=== PATIENT | male | born 1995 | race American Indian/Alaskan Native ===

== ENCOUNTER 2016-11-22 10:30 | Inpatient (IN) | payer MEDICAID ==
[2016-11-22 10:53] VITALS: BMI 17.8
[2016-11-22] MEDS ORDERED: Sodium Chloride 0.9% 1,000 ML IV STA (12:24)
[2016-11-22] MEDS ORDERED: Morphine 2 mg/ml ISec IVP STA (12:31)
[2016-11-22] MEDS ORDERED: DiphenhydrAMINE 50 mg/ml Inj IVP STA (12:31)
--- NOTE | 2016-11-22 12:33 | ED PDOC ---
Arrival/HPI - General Historian: Patient - History of Present Illness Time/Duration: Other (2 weeks) Quality: Aching Context: Home <Devendra Pepe P - Last Filed: 11/24/16 15:47> <Sharmin Anders - Last Filed: 11/24/16 16:16> - General Chief Complaint: Abnormal Skin Integrity Time Seen by Provider: 11/22/16 11:31 - History of Present Illness Narrative History of Present Illness (Text): 11/22/16 12:15 This 21 yo male with pmh crohn's disease, anemia, presents to this ED c/o abdominal wound pain x 2 days. Patient stated he seen drainage from incisional wound x 2 weeks. Patient stated he had abdominal surgery in March 2016. Patient denies sob, cp, streaking erythema, fever, n/v/d, rectal bleeding, melena, hematochezia, urinary symptoms, dizziness, or abnormal gait. Patient noted he has been seen @ [facility] [place] for previous visit. Patient had I&D done 3 weeks ago for right lower back abscess, and he was taking 10 days ABX treatment. (Devendra Pepe) Past Medical History - Provider Review Nursing Documentation Reviewed: Yes - Cardiac Hx Cardiac Disorders: No - Pulmonary Hx Respiratory Disorders: No - Neurological Hx Neurological Disorder: No - HEENT Hx HEENT Disorder: No - Renal Hx Renal Disorder: No - Endocrine/Metabolic Hx Endocrine Disorders: No - Hematological/Oncological Hx Blood Disorders: No - Integumentary Hx Dermatological Disorder: No - Musculoskeletal/Rheumatological Hx Musculoskeletal Disorders: No - Gastrointestinal Hx Crohn's Disease: Yes - Genitourinary/Gynecological Hx Genitourinary Disorders: No - Psychiatric Hx Psychophysiologic Disorder: No Hx Substance Use: No - Anesthesia Hx Anesthesia: No <Devendra Pepe P - Last Filed: 11/24/16 15:47> Family/Social History - Physician Review Nursing Documentation Reviewed: Yes Family/Social History: No Known Family HX Smoking Status: Never Smoked Hx Alcohol Use: No Hx Substance Use: No <Devendra Pepe P - Last Filed: 11/24/16 15:47> Allergies/Home Meds <Devendra Pepe P - Last Filed: 11/24/16 15:47> <Sharmin Anders - Last Filed: 11/24/16 16:16> Allergies/Adverse Reactions: Allergies FISH Allergy (Verified 11/13/16 13:50) shellfish derived Adverse Reaction (Verified 11/22/16 10:53) ANGIOEDEMA Review of Systems - Review of Systems Constitutional: Normal. absent: Fatigue, Weight Change, Fevers, Night Sweats Eyes: Normal ENT: Normal Respiratory: Normal. absent: SOB, Cough Cardiovascular: Normal Gastrointestinal: Abdominal Pain, Other (no rectal bleeding). absent: Stool Changes, Constipation, Diarrhea, Nausea, Vomiting, Appetite Changes, Hematochezia, Hematemesis, Food Intolerance Genitourinary Male: Normal Musculoskeletal: Normal Skin: Abscess Neurological: Normal Endocrine: Normal Hemo/Lymphatic: Normal Psychiatric: Normal <Pepe,Nahim P - Last Filed: 11/24/16 15:47> Physical Exam Temperature: Afebrile Blood Pressure: Normal Pulse: Regular Respiratory Rate: Normal Appearance: Positive for: Well-Appearing, Non-Toxic, Comfortable Pain Distress: None Mental Status: Positive for: Alert and Oriented X 3 - Systems Exam Head: Present: Atraumatic, Normocephalic Pupils: Present: PERRL Extroacular Muscles: Present: EOMI Conjunctiva: Present: Normal Mouth: Present: Moist Mucous Membranes Neck: Present: Normal Range of Motion. No: Meningeal Signs Respiratory/Chest: Present: Clear to Auscultation, Good Air Exchange. No: Respiratory Distress, Accessory Muscle Use Cardiovascular: Present: Regular Rate and Rhythm, Normal S1, S2. No: Murmurs Abdomen: Present: Tenderness (Mild incisional wound tenderness. (+) mild purulent drainage), Normal Bowel Sounds. No: Distention, Peritoneal Signs, Rebound, Guarding Back: Present: Normal Inspection Upper Extremity: Present: Normal Inspection, Normal ROM, Neurovascularly Intact , Capillary Refill < 2s. No: Cyanosis, Edema Lower Extremity: Present: Normal Inspection, NORMAL PULSES, Normal ROM. No: Edema Neurological: Present: GCS=15, CN II-XII Intact, Speech Normal Skin: Present: Warm, Dry, Normal Color. No: Rashes Psychiatric: Present: Alert, Oriented x 3, Normal Insight, Normal Concentration <Pepe,Nahim P - Last Filed: 11/24/16 15:47> Vital Signs Temp Pulse Resp BP Pulse Ox 11/22/16 17:13 76 18 118/68 100 11/22/16 15:36 79 18 121/70 100 11/22/16 13:42 97.9 F 86 18 114/69 100 11/22/16 12:00 95 H 18 112/68 100 11/22/16 11:33 106 H 18 110/65 100 11/22/16 10:49 97.2 F L 98 H 18 112/61 100 Medical Decision Making Re-evaluation Time: 17:54 Reassessment Condition: Re-examined, Improving,but remains with symptoms - Lab Interpretations I have reviewed the lab results: Yes Interpretation: Abnormal lab values (abnormal PT/INR/PTT) <Devendra Pepe - Last Filed: 11/24/16 15:47> <Sharmin Anders - Last Filed: 11/24/16 16:16> ED Course and Treatment: 11/22/16 13:[address] Anders ED physician regarding abdominal abscess x 2 week. Patient was treated with lower back abscess x 3 weeks ago. Patient has mild tenderness on incisional wound abscess. Patient appears non-toxic, requesting pain medication. She recommended labs, UA, and CT abdomen / pelvis with IV contrast to better appreciate abscess. 11/22/16 16:53 executive vice president business development examined patient and he recommended admission. I spoke with Dr. Ayoub Hospitalist regarding patient complain, labs result, and ct scan report. She agrees with admission. (Devendra Pepe) - Lab Interpretations Microbiology Results: Microbiology Results 11/22/16 13:30 Blood Blood Culture - Preliminary NO GROWTH AFTER 48 HOURS 11/22/16 13:30 Blood Blood Culture - Preliminary NO GROWTH AFTER 48 HOURS Lab Results: 11/22/16 13:30 11/22/16 13:30 Lab Results 11/22/16 14:55: PT 12.2 H, INR 1.13 H, APTT 33.1 H 11/22/16 13:51: Blood Type Confirm A POSITIVE 11/22/16 13:30: WBC 5.8, RBC 3.77, Hgb 8.3 L, Hct 26.7 L, MCV 70.8 L, MCH 22.0 L , MCHC 31.1, RDW 19.0 H, Plt Count 668 H, MPV 8.2, Gran % 64.5, Lymph % (Auto) 17.1 L, Sawyer % (Auto) 14.8 H, Eos % (Auto) 3.3, Baso % (Auto) 0.3, Gran # 3.74, Lymph # 1.0 L, Sawyer # 0.9 H, Eos # 0.2, Baso # 0.02, PT Cancelled, INR Cancelled , APTT Cancelled, Sodium 145, Potassium 4.6, Chloride 105, Carbon Dioxide 27, Anion Gap 18, BUN 8, Creatinine 0.8, Est GFR ( Amer) > 60, Est GFR (Non- Af Amer) > 60, Random Glucose 79, Calcium 9.0, Total Bilirubin 0.4, AST 46, ALT 18, Alkaline Phosphatase 83, Total Protein 7.5, Albumin 3.5, Globulin 4.0, Albumin/Globulin Ratio 0.9 L, Lipase 111, Blood Type A POSITIVE, Antibody Screen Negative, BBK History Checked No verified bt - RAD Interpretation Narrative RAD Interpretations (Text): 11/22/16 15:47 Patient Name / ID : MIKO BOYLE / [id number] Exam Date : 11/22/2016 14:28:16 ( Approved ) Study Comment : Sex / Age : M / 21Y Creator : Anahy Dobbins Dictator : Anahy Dobbins Criminal Justice Lawyer : Sewing Supervisor : Anahy Dobbins Approver2 : Report Date : 11/22/2016 15:35:10 My Comment : PROCEDURE: CT Abdomen and Pelvis with contrast HISTORY: abdominal drainage. 21 years old man with history of Crohn disease history of prior bowel surgery. COMPARISON: None. TECHNIQUE: Contrast dose: 100 mL Omnipaque 350 Radiation dose: Total exam DLP = 234.14 mGy-cm. FINDINGS: LOWER THORAX: Unremarkable. LIVER: [id number] hepatomegaly seen. No evidence of acute pathology or mass lesion in the liver. GALLBLADDER AND BILE DUCTS: Unremarkable. PANCREAS: Unremarkable. No gross lesion or ductal dilatation. SPLEEN: Unremarkable. ADRENALS: Unremarkable. No mass. KIDNEYS AND URETERS: Unremarkable. No hydronephrosis. No solid mass. VASCULATURE: Unremarkable. No aortic aneurysm. BOWEL: Suboptimal assessment of the GI without oral contrast administration. There are surgical chad seen at the right mid and lower abdomen suggestive of prior bowel resection and bowel anastomosis. There is mild thickening and enhancement of the small and large bowel loops at the right mid and lower abdomen. No evidence of high-grade bowel obstruction. Mildly distended large bowel loops in the left mid and lower abdomen. APPENDIX: The appendix is not visualized. PERITONEUM: There is fluid collection and possible abscess at and adjacent to the right psoas muscle extending to the right lower abdomen and right pelvic muscle. There is moderate enlargement of the right pelvic sidewall muscles likely due to intramuscular collection. There are foci of air and foci of enhancing fluid collection contains fluid and air at the right mid and lower abdomen. Findings suspicious for abscess formations. There is suspicious for fistula to the anterior abdominal wall to the right and slightly lower to the level of the umbilicus. The possibility of bowel skin fistula should be considered. LYMPH NODES: Large enhancing lymph nodes seen at the right lower abdomen and right groin. Mildly enlarged lymph nodes seen at the left groin. BLADDER: The bladder is mildly distended demonstrate [id number]-az-[id number] wall thickening. REPRODUCTIVE: Unremarkable. BONES: No acute fracture. OTHER FINDINGS: There is small amount of free fluid in the pelvis. IMPRESSION: Suboptimal assessment of the GI system without oral contrast administration. Findings suspicious for abscess formation at and adjacent to the right psoas muscle extending to the right lower abdomen and right pelvis/pelvic sidewall muscles. Suspicious for fistula to the anterior abdominal wall to the right of the midline. Postsurgical changes at the right mid and lower abdomen. Enhancing slightly thick wall of the small and large bowel loops at the right mid and lower abdomen may represent enteritis/colitis. No evidence of high-grade bowel obstruction. Ycpe-ya-vujbupbp constipation and dilated large bowel loops at the left abdomen. Hepatomegaly. (Devendra Pepe) Radiology Orders: 11/22/16 12:25 ABD & PELVIS IV CONTRAST ONLY [CT] Stat 11/23/16 07:00 ABD PELVIS PO & IV CONTRAST [CT] Routine - Medication Orders Current Medication Orders: Discontinued Medications Barium Sulfate (Readi-Cat 2) Confirm Administered Dose 900 ml PO .BookBottles ONE Stop: 11/23/16 09:46 Diphenhydramine HCl (Benadryl) 25 mg IVP STAT STA Stop: 11/22/16 12:32 Last Admin: 11/22/16 13:26 Dose: 25 MG IVP Administration Document 11/22/16 13:26 OCS (Rec: 11/22/16 13:27 OCS [facility] [id number]) Charges for Administration # of IVP Administrations 1 Famotidine (Pepcid) 20 mg IVP Q12 BRYANT Last Admin: 11/24/16 09:04 Dose: 20 MG IVP Administration Document 11/24/16 09:04 MLK (Rec: 11/24/16 09:04 MLK [facility] [id number]) Charges for Administration # of IVP Administrations 1 Home Med (*Refrigerator Open) Confirm Administered Dose 1 unit XX .STK-MED ONE Stop: 11/23/16 05:55 Home Med (*Refrigerator Open) Confirm Administered Dose 1 unit XX .STK-MED ONE Stop: 11/23/16 06:00 Home Med (*Refrigerator Open) Confirm Administered Dose 1 unit XX .STK-MED ONE Stop: 11/24/16 05:41 Hydromorphone HCl (Dilaudid) 1 mg IVP STAT STA Stop: 11/22/16 16:47 Last Admin: 11/22/16 17:08 Dose: 1 MG IVP Administration Document 11/22/16 17:08 OCS (Rec: 11/22/16 17:08 OCS [facility] [id number]) Charges for Administration # of IVP Administrations 1 Hydromorphone HCl (Dilaudid) 0.5 mg IVP Q4H PRN PRN Reason: Pain, moderate (4-7) Last Admin: 11/23/16 09:04 Dose: 0.5 MG MAR Pain Assessment Document 11/23/16 09:04 CLR (Rec: 11/23/16 09:04 CLR [id number]) Pain Reassessment Is this a pain reassessment? No Presence of Pain Presence of Pain Yes Pain Scale Used Pain Scale Used Numeric Location Left, Right or Bilateral Right Upper or Lower Lower Pain Location Body Site Abdomen Back Description Description Constant Intensity of Pain at present 7 Aggravating Factors ADL's Changing Position Alleviating Factors/Management Medication Techniques IVP Administration Document 11/23/16 09:04 CLR (Rec: 11/23/16 09:04 CLR [id number]) Charges for Administration # of IVP Administrations 1 Re-Assess: SIENNA Pain Assessment Document 11/23/16 10:04 CLR (Rec: 11/23/16 11:31 CLR [id number]) Pain Reassessment Is this a pain reassessment? Yes Presence of Pain Presence of Pain Yes Description Description Constant Intensity of Pain at present 5 Hydromorphone HCl (Dilaudid) 0.5 mg IVP Q3H PRN PRN Reason: Pain, moderate (4-7) Last Admin: 11/24/16 12:47 Dose: 0.5 MG [facility] Pain Assessment Document 11/24/16 12:47 MLK (Rec: 11/24/16 12:47 MLK [id number]) Pain Reassessment Is this a pain reassessment? No Presence of Pain Presence of Pain Yes Location Pain Location Body Site Abdomen Description Pain Behavior Irritability Alleviating Factors/Management Medication Techniques IVP Administration Document 11/24/16 12:47 MLK (Rec: 11/24/16 12:47 MLK [id number] Charges for Administration # of IVP Administrations 1 Re-Assess: [facility] Pain Assessment Document 11/24/16 13:47 MLK (Rec: 11/24/16 14:08 MLK [facility] [id number]) Pain Reassessment Is this a pain reassessment? Yes Presence of Pain Presence of Pain No Sodium Chloride (Sodium Chloride 0.9%) 1,000 mls @ 1,000 mls/hr IV .Q1H STA Stop: 11/22/16 13:23 Last Admin: 11/22/16 13:26 Dose: 1,000 MLS/HR eMAR Start Stop Document 11/22/16 13:26 OCS (Rec: 11/22/16 13:26 OCS [id number]) Intravenous Solution Start Date 11/22/16 Start Time 13:26 Ceftriaxone Sodium (Rocephin 1 Gram Ivpb) 100 mls @ 100 mls/hr IVPB DAILY BRYANT PRN Reason: Protocol Last Admin: 11/24/16 09:05 Dose: 100 MLS/HR eMAR Start Stop Document 11/24/16 09:05 MLK (Rec: 11/24/16 09:05 MLK [id number]) Intravenous Solution Start Date 11/24/16 Start Time 09:05 End Date 11/24/16 End time 10:05 Total Infusion Time 60 Metronidazole (Flagyl) 100 mls @ 100 mls/hr IVPB Q8 BRYANT PRN Reason: Protocol Last Admin: 11/24/16 05:28 Dose: 100 MLS/HR eMAR Start Stop Document 11/24/16 05:28 SD (Rec: 11/24/16 05:29 SD [facility] [id number]) Intravenous Solution Start Date 11/24/16 Start Time 05:29 Sodium Chloride (Sodium Chloride 0.9%) 1,000 mls @ 100 mls/hr IV .Q10H BRYANT Last Admin: 11/24/16 08:00 Dose: 100 MLS/HR eMAR Start Stop Document 11/24/16 08:00 MLK (Rec: 11/24/16 12:27 MLK [id number]) Intravenous Solution Start Date 11/24/16 Start Time 08:00 End Date 11/24/16 End time 18:00 Total Infusion Time 600 Iron Sucrose 200 mg/ Sodium (Chloride) 110 mls @ 110 mls/hr IVPB ONCE ONE Stop: 11/23/16 11:59 Last Admin: 11/23/16 12:06 Dose: 110 MLS/HR eMAR Start Stop Document 11/23/16 12:06 CLR (Rec: 11/23/16 12:06 CLR [id number]) Intravenous Solution Start Date 11/23/16 Start Time 12:06 End Date 11/23/16 End time 13:06 Total Infusion Time 60 Iohexol (Omnipaque 350 100 Ml) Confirm Administered Dose 350 mg .ROUTE .STK-MED ONE Stop: 11/22/16 13:54 Iohexol (Omnipaque 350 100 Ml) Confirm Administered Dose 350 mg .ROUTE .STK-MED ONE Stop: 11/23/16 09:49 Morphine Sulfate (Morphine) 2 mg IVP STAT STA Stop: 11/22/16 12:32 Last Admin: 11/22/16 13:27 Dose: 2 MG MAR Pain Assessment Document 11/22/16 13:27 OCS (Rec: 11/22/16 13:27 OCS [facility] [id number]) Pain Reassessment Is this a pain reassessment? Yes Sleep Is patient sleeping during reassessment? No Presence of Pain Presence of Pain Yes Pain Scale Used Pain Scale Used Numeric Description Description Constant Intensity of Pain at present 10 IVP Administration Document 11/22/16 13:27 OCS (Rec: 11/22/16 13:27 OCS [facility] [id number]) Charges for Administration # of IVP Administrations 1 Multivitamins/Minerals (Therapeutic-M Tab) 1 tab PO DAILY BRYANT Last Admin: 11/24/16 12:07 Dose: 1 TAB Ondansetron HCl (Zofran Inj) 4 mg IVP Q4H PRN PRN Reason: Nausea/Vomiting Oxycodone/Acetaminophen (Percocet 5/325 Mg Tab) 1 tab PO Q4H PRN PRN Reason: Pain, moderate (4-7) Stop: 11/27/16 10:10 Last Admin: 11/24/16 12:07 Dose: 1 TAB [facility] Pain Assessment Document 11/24/16 12:07 MLK (Rec: 11/24/16 12:07 MLK [id number]) Pain Reassessment Is this a pain reassessment? No Presence of Pain Presence of Pain Yes Location Pain Location Body Site Abdomen Description Pain Behavior Facial Grimacing Alleviating Factors/Management Medication Techniques Re-Assess: [facility] Pain Assessment Document 11/24/16 13:07 MLK (Rec: 11/24/16 14:08 MLK [facility] [id number]) Pain Reassessment Is this a pain reassessment? Yes Presence of Pain Presence of Pain Yes Potassium Chloride (K-Dur 20 Meq Er Tab) 20 meq PO ONCE ONE Stop: 11/23/16 08:27 Last Admin: 11/23/16 09:38 Dose: 20 MEQ Potassium Chloride (K-Dur 20 Meq Er Tab) 20 meq PO ONCE ONE Stop: 11/23/16 08:28 Last Admin: 11/23/16 09:38 Dose: 20 MEQ Potassium Chloride (K-Dur 20 Meq Er Tab) 40 meq PO STAT STA Stop: 11/23/16 10:51 Last Admin: 11/23/16 11:30 Dose: - PA / COMPOSITION FLOOR SETTER / Resident Statement /DO has examined the patient and agrees with the treatment plan. <Sharmin Anders - Last Filed: 11/24/16 16:16> Disposition/Present on Arrival - Present on Arrival Any Indicators Present on Arrival: No History of DVT/PE: No History of Uncontrolled Diabetes: No Urinary Catheter: No History of Decub. Ulcer: No History Surgical Site Infection Following: None - Disposition Have Diagnosis and Disposition been Completed?: Yes Disposition Time: 17:42 Patient Plan: Admission <Devendra Pepe - Last Filed: 11/24/16 15:47> <Sharmin Anders - Last Filed: 11/24/16 16:16> - Disposition Diagnosis: Intra-abdominal abscess Disposition: HOSPITALIZED Condition: STABLE
[2016-11-22 13:32] LABS: ADD MANUAL DIFF? NO
[2016-11-22 13:36] LABS: BASO # 0.02 K/mm3 (0.0-2.0); BASO % 0.3 % (0.0-3.0); EOS # 0.2 (0.0-0.7); EOS % 3.3 % (1.5-5.0); GRAN # 3.74 (1.4-6.5); GRAN % 64.5 % (50.0-68.0); HEMATOCRIT 26.7 % (42.0-52.0); LYMPH % 17.1 % (22.0-35.0); MEAN CELL VOLUME 70.8 fL (80.0-105.0); MEAN CORPUSCULAR HGB CONC 31.1 g/dl (31.0-37.0); MEAN PLATELET VOLUME 8.2 fl (7.0-11.0); MONO # 0.9 (0.1-0.6); MONO % 14.8 % (1.0-6.0); PLATELET COUNT 668 10^3/uL (120.0-450.0); WHITE BLOOD COUNT 5.8 10^3/ul (4.5-11.0)
[2016-11-22 13:47] LABS: ALB/GLOB RATIO 0.9 (1.1-1.8); ALKALINE PHOSPHATASE 83 U/L (38-133); ALT/SGPT 18 U/L (7-56); AST/SGOT 46 U/L (15-59); BILIRUBIN,TOTAL 0.4 mg/dL (0.2-1.3); BLOOD UREA NITROGEN 8 mg/dL (7-21); CARBON DIOXIDE 27 mmol/L (21-33); CHLORIDE 105 mmol/L (98-107); GFR AFRICAN-AMERICAN > 60; GLUCOSE,RANDOM 79 mg/dL (70-110); LIPASE 111 U/L (23-300); POTASSIUM 4.6 mmol/L (3.6-5.0); SODIUM 145 mmol/L (132-148); TOTAL PROTEIN 7.5 g/dL (5.8-8.3)
[2016-11-22] MEDS ORDERED: Iohexol 350 MG/100 ML VIAL ONE (13:53)
[2016-11-22 15:16] LABS: INR 1.13 (0.93-1.08); PARTIAL THROMBOPLASTIN TIME 33.1 Seconds (23.7-30.8)
--- NOTE | 2016-11-22 15:36 | CT ---
PROCEDURE: CT Abdomen and Pelvis with contrast HISTORY: abdominal drainage. 21 years old man with history of Crohn disease history of prior bowel surgery. COMPARISON: None. TECHNIQUE: Contrast dose: 100 mL Omnipaque 350 Radiation dose: Total exam DLP = 234.14 mGy-cm. FINDINGS: LOWER THORAX: Unremarkable. LIVER: [id number]-aj-zymtujpi hepatomegaly seen. No evidence of acute pathology or mass lesion in the liver. GALLBLADDER AND BILE DUCTS: Unremarkable. PANCREAS: Unremarkable. No gross lesion or ductal dilatation. SPLEEN: Unremarkable. ADRENALS: Unremarkable. No mass. KIDNEYS AND URETERS: Unremarkable. No hydronephrosis. No solid mass. VASCULATURE: Unremarkable. No aortic aneurysm. BOWEL: Suboptimal assessment of the GI without oral contrast administration. There are surgical chad seen at the right mid and lower abdomen suggestive of prior bowel resection and bowel anastomosis. There is mild thickening and enhancement of the small and large bowel loops at the right mid and lower abdomen. No evidence of high-grade bowel obstruction. Mildly distended large bowel loops in the left mid and lower abdomen. APPENDIX: The appendix is not visualized. PERITONEUM: There is fluid collection and possible abscess at and adjacent to the right psoas muscle extending to the right lower abdomen and right pelvic muscle. There is moderate enlargement of the right pelvic sidewall muscles likely due to intramuscular collection. There are foci of air and foci of enhancing fluid collection contains fluid and air at the right mid and lower abdomen. Findings suspicious for abscess formations. There is suspicious for fistula to the anterior abdominal wall to the right and slightly lower to the level of the umbilicus. The possibility of bowel skin fistula should be considered. LYMPH NODES: Large enhancing lymph nodes seen at the right lower abdomen and right groin. Mildly enlarged lymph nodes seen at the left groin. BLADDER: The bladder is mildly distended demonstrate pqaj-[id number]-txafaprx wall thickening. REPRODUCTIVE: Unremarkable. BONES: No acute fracture. OTHER FINDINGS: There is small amount of free fluid in the pelvis. IMPRESSION: Suboptimal assessment of the GI system without oral contrast administration. Findings suspicious for abscess formation at and adjacent to the right psoas muscle extending to the right lower abdomen and right pelvis/pelvic sidewall muscles. Suspicious for fistula to the anterior abdominal wall to the right of the midline. Postsurgical changes at the right mid and lower abdomen. Enhancing slightly thick wall of the small and large bowel loops at the right mid and lower abdomen may represent enteritis/colitis. No evidence of high-grade bowel obstruction. [id number]-ah-nwmawlmk constipation and dilated large bowel loops at the left abdomen. Hepatomegaly.
--- NOTE | 2016-11-22 16:30 | CP.PCM.CON ---
<Toney Soni - Last Filed: 11/22/16 17:01> History of Present Illness - History of Present Illness History of Present Illness: Surgery: Dr. Andino CC: Abd pain and drainage HPI: 21M w. pmh of Crohn's dx in 2014 and multiple abd operations for intra- abdominal abscesses, presents w. diffuse abd pain with drainage for the past 2 weeks. Pt states that he has had at least 7 operations for drainage of intra- abdominal abscesses. The last one being done in October at [facility]. Pt states that he was doing relatively well until 2 weeks ago when he began to develop R sided abd pain that was constant and described as a cramp/stabbing pain. He states that the pain is worse w. activity. The abd eventually began to drain pus at the umbilicus, RUQ, and RLQ. He reports having fevers and chills. He reports having diarrhea, which is non-bloody. He denies any changes in appetite. No N/V. He denies CARNES/blurred vision, no CP/palpitation, no SOB/cough, he reports some difficulty urinating, no hematuria. He states that he has bone pain in his legs, and has general feeling of fatigue. Pt was seeing Dr. Altamirano, GI doc at [facility] for a short time, but has not seen him since October. He currently is not taking any medication to manage his crohn's PMH: crohn's PSH: Multiple drainage's of intra-abdominal abscesses, questionable small bowel resection Meds: none ALL: shell fish Social: No ETOH/tobacco/drugs Fhx: none Review of Systems - Review of Systems All systems: reviewed and no additional remarkable complaints except (HPI) Past Patient History - Past Social History Smoking Status: Never Smoked - CARDIAC Hx Cardiac Disorders: No - PULMONARY Hx Respiratory Disorders: No - NEUROLOGICAL Hx Neurological Disorder: No - HEENT Hx HEENT Problems: No - RENAL Hx Chronic Kidney Disease: No - ENDOCRINE/METABOLIC Hx Endocrine Disorders: No - HEMATOLOGICAL/ONCOLOGICAL Hx Blood Disorders: No - INTEGUMENTARY Hx Dermatological Problems: No - MUSCULOSKELETAL/RHEUMATOLOGICAL Hx Musculoskeletal Disorders: No - GASTROINTESTINAL Hx Crohn's Disease: Yes - GENITOURINARY/GYNECOLOGICAL Hx Genitourinary Disorders: No - PSYCHIATRIC Hx Psychophysiologic Disorder: No Hx Substance Use: No - SURGICAL HISTORY Hx Surgeries: No - ANESTHESIA Hx Anesthesia: No Meds Allergies/Adverse Reactions: Allergies Allergy/AdvReac Type Severity Reaction Status Date / Time FISH Allergy Verified 11/13/16 13:50 shellfish derived AdvReac ANGIOEDEMA Verified 11/22/16 10:53 Physical Exam - Constitutional Appears: Non-toxic, No Acute Distress - Head Exam Head Exam: ATRAUMATIC, NORMOCEPHALIC - Eye Exam Eye Exam: EOMI. absent: Scleral icterus - ENT Exam ENT Exam: Mucous Membranes Moist, Normal External Ear Exam - Neck Exam Neck exam: Positive for: Full Rom - Respiratory Exam Respiratory Exam: NORMAL BREATHING PATTERN. absent: Accessory Muscle Use, Respiratory Distress - GI/Abdominal Exam Additional comments: soft, tender RUQ, RLQ, and umblical area, there is drainage of purulent fluid in the previously mentioned areas, drainage has no odor. No guarding, rebound, or rigidity - Extremities Exam Extremities exam: Negative for: calf tenderness, pedal edema - Back Exam Back exam: CVA tenderness (R). absent: CVA tenderness (L) - Neurological Exam Neurological exam: Alert, Oriented x3 - Psychiatric Exam Psychiatric exam: Normal Affect, Normal Mood - Skin Skin Exam: Dry, Normal Color, Warm Results - Vital Signs Recent Vital Signs: Last Vital Signs Temp 97.9 F 11/22/16 13:42 Pulse 79 11/22/16 15:36 Resp 18 11/22/16 15:36 BP 121/70 11/22/16 15:36 Pulse Ox 100 11/22/16 15:36 - Labs Result Diagrams: 11/22/16 13:30 11/22/16 13:30 Labs: Laboratory Results - last 24 hr 11/22/16 11/22/16 11/22/16 13:30 13:51 14:55 WBC 5.8 RBC 3.77 Hgb 8.3 L Hct 26.7 L MCV 70.8 L MCH 22.0 L MCHC 31.1 RDW 19.0 H Plt Count 668 H MPV 8.2 Gran % 64.5 Lymph % (Auto) 17.1 L [place] % (Auto) 14.8 H Eos % (Auto) 3.3 Baso % (Auto) 0.3 Gran # 3.74 Lymph # 1.0 L [place] # 0.9 H Eos # 0.2 Baso # 0.02 PT Cancelled 12.2 H INR Cancelled 1.13 H APTT Cancelled 33.1 H Sodium 145 Potassium 4.6 Chloride 105 Carbon Dioxide 27 Anion Gap 18 BUN 8 Creatinine 0.8 Est GFR ( Amer) > 60 Est GFR (Non-Af Amer) > 60 Random Glucose 79 Calcium 9.0 Total Bilirubin 0.4 AST 46 ALT 18 Alkaline Phosphatase 83 Total Protein 7.5 Albumin 3.5 Globulin 4.0 Albumin/Globulin Ratio 0.9 L Lipase 111 Blood Type A POSITIVE Blood Type Confirm A POSITIVE Antibody Screen Negative BBK History Checked No verified bt - Imaging and Cardiology CT scan - abdomen Status: Image reviewed by me, Report reviewed by me Assessment & Plan - Assessment and Plan (Free Text) Assessment: 21M w. Crohn's and intr-abdominal abscesses -recommend IR drainage, case d/w Dr. Farmer, will repeat CT in AM w. PO contrast -recommend GI consult -IVF -pain meds -abx -NPO -GI/DVT prophylaxis -case d.w Dr. Andino Zemaitis PGY2 <Dick Andino - Last Filed: 11/23/16 16:33> Meds - Medications Medications: Current Medications Famotidine (Pepcid) 20 mg IVP Q12 [facility] Last Admin: 11/23/16 09:38 Dose: 20 mg Hydromorphone HCl (Dilaudid) 0.5 mg IVP Q3H PRN PRN Reason: Pain, moderate (4-7) Last Admin: 11/23/16 15:05 Dose: 0.5 mg Ceftriaxone Sodium (Rocephin 1 Gram Ivpb) 100 mls @ 100 mls/hr IVPB DAILY BRYANT PRN Reason: Protocol Last Admin: 11/23/16 09:38 Dose: 100 mls/hr Metronidazole (Flagyl) 100 mls @ 100 mls/hr IVPB Q8 BRYANT PRN Reason: Protocol Last Admin: 11/23/16 14:13 Dose: 100 mls/hr Sodium Chloride (Sodium Chloride 0.9%) 1,000 mls @ 100 mls/hr IV .Q10H [facility] Last Admin: 11/23/16 12:45 Dose: 100 mls/hr Multivitamins/Minerals (Therapeutic-M Tab) 1 tab PO DAILY [facility] Last Admin: 11/23/16 12:06 Dose: 1 tab Ondansetron HCl (Zofran Inj) 4 mg IVP Q4H PRN PRN Reason: Nausea/Vomiting Results - Vital Signs Recent Vital Signs: Last Vital Signs Temp 99.2 F 11/23/16 08:33 Pulse 88 11/23/16 08:33 Resp 20 11/23/16 08:33 BP 115/66 11/23/16 08:33 Pulse Ox 100 11/23/16 08:33 - Labs Result Diagrams: 11/23/16 07:00 11/23/16 07:00 Labs: Laboratory Results - last 24 hr 11/23/16 11/23/16 07:00 07:15 WBC 10.3 D RBC 4.01 Hgb 8.7 L Hct 28.1 L MCV 70.1 L MCH 21.7 L MCHC 31.0 RDW 18.7 H Plt Count 673 H MPV 8.1 Gran % 78.8 H Lymph % (Auto) 8.8 L [place] % (Auto) 9.0 H Eos % (Auto) 3.1 Baso % (Auto) 0.3 Gran # 8.09 H Lymph # 0.9 L [place] # 0.9 H Eos # 0.3 Baso # 0.03 Sodium 141 Potassium 3.2 L Chloride 99 Carbon Dioxide 27 Anion Gap 18 BUN 5 L Creatinine 0.9 Est GFR ( Amer) > 60 Est GFR (Non-Af Amer) > 60 Random Glucose 80 Calcium 8.5 Iron 10 L TIBC 269 % Saturation 4 L Ferritin 23.0 Total Bilirubin 0.3 AST 51 ALT 17 Alkaline Phosphatase 89 Total Protein 7.7 Albumin 3.4 Globulin 4.3 Albumin/Globulin Ratio 0.8 L Vitamin B12 729 Folate 13.4 Attending/Attestation - Attestation I have personally seen and examined this patient.: Yes I have fully participated in the care of the patient.: Yes I have reviewed all pertinent clinical information: Yes Notes (Text): 11/23/16 16:31 Pt was seen and examined at bedside on 11/23/16 Agree with above note and assessment. Pt with Crohns dis and Intra abdominal abscess IR for Drainage of abscess C/w IV antibiotics Plan d.w pt in detail We will f.u
[2016-11-22] MEDS ORDERED: HYDROmorphone 1 mg/ml ISec IVP STA (16:46)
--- NOTE | 2016-11-22 19:22 | CP.PCM.HP ---
<Callum Vaqzuez - Last Filed: 11/22/16 19:35> History of Present Illness - History of Present Illness History of Present Illness: 21 year old male with a pmh of Crohn's and Fe def anemia presents to the the ED with three purulent draining wounds on the right lower quadrant and one wound on his right flank that appeared like a drain site from a previous procedure. This pt. has had multiple suregeris/procedures starting in Nov 2014 for abdominal abscesses, possibly 2/2 to his Crohn's. He currently not on any Crohn's regimine nor does he follow a GI doc for it. He has been to [facility] and [facility] for his previous surgeries/procedures. His latest onset started approximately 2 weeks ago. He did not want to go to [facility] any longer, as they are no longer able to care for him. PMD: Dr. Brendan Ward Surgeon from [facility]: Dr. Marte PMH: Crohn's and Fe Def Anemia PSH: 2 abdominal surgeries and 1 IR Incision and Drainage for abdominal abscesses FH: sig for HTN and Arthritis SH: -lives with family -does not work, is disables -not recently sick -Tob quit in 2014, used to smoke 5cigs/day/2years -Alc denies -Drugs denies All: Shellfish Meds: Fe pills Present on Admission - Present on Admission Any Indicators Present on Admission: No Review of Systems - Constitutional Constitutional: Chills. absent: Fever, Headache - EENT Eyes: absent: Change in Vision Ears: absent: Decreased Hearing Nose/Mouth/Throat: Dry Mouth, Sore Throat, Neck Pain. absent: Epistaxis, Nasal Congestion - Cardiovascular Cardiovascular: absent: Chest Pain, Chest Pain at Rest, Dyspnea - Respiratory Respiratory: absent: Cough, Dyspnea, Hemoptysis - Gastrointestinal Gastrointestinal: Abdominal Pain Additional comments: 3 RLQ wounds that are draining yellowish purulent fluid, 1 non healing wound on right flank, possibly site of drain port from previous surgery - Genitourinary Genitourinary: absent: Difficulty Urinating, Dysuria, Hematuria, Pyuria, Urinary Incontinence - Musculoskeletal Musculoskeletal: Back Pain, Neck Pain. absent: Muscle Weakness, Numbness, Tingling - Integumentary Integumentary: Non-Healing Lesions (right flank), Wounds (3 RLQ yellowish, purulent wounds) - Endocrine Endocrine: Cold Intolorance. absent: Fatigue, Heat Intolorance, Palpitations, Polydipsia, Polyphagia, Polyuria Past Patient History - Past Social History Smoking Status: Former Smoker (quit in 2014, used to smoke 5cigs/day/2years) Chewing Tobacco Use: No Cigar Use: No Alcohol: None Drugs: Denies Home Situation {Lives}: With Family - CARDIAC Hx Cardiac Disorders: No - PULMONARY Hx Respiratory Disorders: No - NEUROLOGICAL Hx Neurological Disorder: No - HEENT Hx HEENT Problems: No - RENAL Hx Chronic Kidney Disease: No - ENDOCRINE/METABOLIC Hx Endocrine Disorders: No - HEMATOLOGICAL/ONCOLOGICAL Hx Blood Disorders: No Hx Anemia: Yes (Fe Def Anemia) - INTEGUMENTARY Hx Dermatological Problems: No - MUSCULOSKELETAL/RHEUMATOLOGICAL Hx Musculoskeletal Disorders: No - GASTROINTESTINAL Hx Crohn's Disease: Yes - GENITOURINARY/GYNECOLOGICAL Hx Genitourinary Disorders: No - PSYCHIATRIC Hx Psychophysiologic Disorder: No Hx Substance Use: No - SURGICAL HISTORY Hx Surgeries: No - ANESTHESIA Hx Anesthesia: No Meds Allergies/Adverse Reactions: Allergies Allergy/AdvReac Type Severity Reaction Status Date / Time FISH Allergy Verified 11/13/16 13:50 shellfish derived AdvReac ANGIOEDEMA Verified 11/22/16 10:53 Physical Exam - Constitutional Appears: No Acute Distress - Head Exam Head Exam: ATRAUMATIC - Eye Exam Eye Exam: EOMI - ENT Exam ENT Exam: Mucous Membranes Moist - Neck Exam Neck exam: Positive for: Full Rom. Negative for: Lymphadenopathy - Respiratory Exam Respiratory Exam: Clear to Auscultation Bilateral, NORMAL BREATHING PATTERN. absent: Rhonchi, Wheezes - Cardiovascular Exam Cardiovascular Exam: REGULAR RHYTHM, RRR, +S1, +S2. absent: JVD - GI/Abdominal Exam GI & Abdominal Exam: Normal Bowel Sounds, Tenderness Additional comments: 3 RLQ purulent abdominal wounds, 1 right flank wound, non healing, likely prior site of drain port - Extremities Exam Extremities exam: Positive for: full ROM. Negative for: joint swelling, pedal edema, tenderness - Back Exam Back exam: absent: CVA tenderness (L), CVA tenderness (R) - Neurological Exam Neurological exam: Alert, CN II-XII Intact, Oriented x3 Results - Vital Signs Recent Vital Signs: Last Vital Signs Temp 97.9 F 11/22/16 13:42 Pulse 76 11/22/16 17:13 Resp 18 11/22/16 17:13 BP 118/68 11/22/16 17:13 Pulse Ox 100 11/22/16 17:13 - Labs Result Diagrams: 11/22/16 13:30 11/22/16 13:30 Labs: Laboratory Results - last 24 hr 11/22/16 11/22/16 11/22/16 13:30 13:51 14:55 WBC 5.8 RBC 3.77 Hgb 8.3 L Hct 26.7 L MCV 70.8 L MCH 22.0 L MCHC 31.1 RDW 19.0 H Plt Count 668 H MPV 8.2 Gran % 64.5 Lymph % (Auto) 17.1 L [place] % (Auto) 14.8 H Eos % (Auto) 3.3 Baso % (Auto) 0.3 Gran # 3.74 Lymph # 1.0 L [place] # 0.9 H Eos # 0.2 Baso # 0.02 PT Cancelled 12.2 H INR Cancelled 1.13 H APTT Cancelled 33.1 H Sodium 145 Potassium 4.6 Chloride 105 Carbon Dioxide 27 Anion Gap 18 BUN 8 Creatinine 0.8 Est GFR ( Amer) > 60 Est GFR (Non-Af Amer) > 60 Random Glucose 79 Calcium 9.0 Total Bilirubin 0.4 AST 46 ALT 18 Alkaline Phosphatase 83 Total Protein 7.5 Albumin 3.5 Globulin 4.0 Albumin/Globulin Ratio 0.9 L Lipase 111 Blood Type A POSITIVE Blood Type Confirm A POSITIVE Antibody Screen Negative BBK History Checked No verified bt Assessment & Plan - Assessment and Plan (Free Text) Assessment: 21M presents with untreated Crohn's and a 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 Plan: Abscesses/fistula -Surgical Consult: Dr. Humphries -IR Consult: Dr. Farmer -Wound Culture -Blood Culture -CT Abd/Pelvis -suspicious for abscess formation at and adjacent to the right psoas muscle extednign ot the right lower abdomen and right pelvis/pelvic sidewall muscles -suspicious for fistula to the anterior abdominal wall to the right of the midline -Ceftriaxone -Flagyl -Dilaudid -IV NS -NPO Anemia -Fr, Ferritin, TIBC -B12, Folate -UDS, UA -CBC, CMP PPX -Nausea Zofran -GI Pepcid -DVT SCD's - Date & Time Date: 11/22/16 Time: 05:00 <José Ayoub - Last Filed: 11/23/16 16:16> Results - Vital Signs Recent Vital Signs: Last Vital Signs Temp 99.2 F 11/23/16 08:33 Pulse 88 11/23/16 08:33 Resp 20 11/23/16 08:33 BP 115/66 11/23/16 08:33 Pulse Ox 100 11/23/16 08:33 - Labs Result Diagrams: 11/23/16 07:00 11/23/16 07:00 Labs: Laboratory Results - last 24 hr 11/23/16 11/23/16 07:00 07:15 WBC 10.3 D RBC 4.01 Hgb 8.7 L Hct 28.1 L MCV 70.1 L MCH 21.7 L MCHC 31.0 RDW 18.7 H Plt Count 673 H MPV 8.1 Gran % 78.8 H Lymph % (Auto) 8.8 L [place] % (Auto) 9.0 H Eos % (Auto) 3.1 Baso % (Auto) 0.3 Gran # 8.09 H Lymph # 0.9 L [place] # 0.9 H Eos # 0.3 Baso # 0.03 Sodium 141 Potassium 3.2 L Chloride 99 Carbon Dioxide 27 Anion Gap 18 BUN 5 L Creatinine 0.9 Est GFR ( Amer) > 60 Est GFR (Non-Af Amer) > 60 Random Glucose 80 Calcium 8.5 Iron 10 L TIBC 269 % Saturation 4 L Ferritin 23.0 Total Bilirubin 0.3 AST 51 ALT 17 Alkaline Phosphatase 89 Total Protein 7.7 Albumin 3.4 Globulin 4.3 Albumin/Globulin Ratio 0.8 L Vitamin B12 729 Folate 13.4 Assessment & Plan - Assessment and Plan (Free Text) Assessment: attending note; Patient seen and examined with resident in ER. Patient is a 21 year old male with a pmh of Crohn's ,multiple surgeries, recurrent abscess drainage, Fistula and iron deficiency anemia Is admitted to [facility] for the first time for recurrent nonhealing Crohn's/fistula infection. Started on IV Rocephin and Flagyl. Wound culture, blood culture sent. CT showed abscess. Case discussed with surgery in detail. Case discussed with IR Dr. Farmer in detail. Will order CT with by mouth contrast tomorrow. Possible drainage by IR. GI evaluation requested. Patient used to get Remicade injection as per patient. Currently not on any treatment. chronic iron deficiency anemia; iron studies ordered. upon discharge the patient will follow-up with PMD . patient needs close follow-up with GI and surgery as outpatient. Diagnosis and follow-up plan discussed with patient and patient's father in detail. Attending/Attestation - Attestation I have personally seen and examined this patient.: Yes I have fully participated in the care of the patient.: Yes I have reviewed all pertinent clinical information: Yes
[2016-11-22] MEDS: cefTRIAXone 1 gm 100 ML IVPB SCH (19:27)
[2016-11-22] MEDS: Sodium Chloride 0.9% 1,000 ML IV SCH (19:29)
[2016-11-22] MEDS: metroNIDAZOLE IV 500 mg/100 ml 100 ML IVPB SCH ×2 (19:59→22:05)
[2016-11-22] MEDS: HYDROmorphone 0.5 mg/0.5 ml ISec IVP PRN (21:30)
[2016-11-22 22:43] VITALS: RESP 20
[2016-11-23] MEDS: HYDROmorphone 0.5 mg/0.5 ml ISec IVP PRN ×7 (01:28→21:16)
[2016-11-23] MEDS: Sodium Chloride 0.9% 1,000 ML IV SCH ×3 (04:59→23:30)
[2016-11-23] MEDS: metroNIDAZOLE IV 500 mg/100 ml 100 ML IVPB SCH ×3 (05:00→21:17)
[2016-11-23 07:39] LABS: ADD MANUAL DIFF? NO
[2016-11-23 07:46] LABS: BASO # 0.03 K/mm3 (0.0-2.0); BASO % 0.3 % (0.0-3.0); EOS # 0.3 (0.0-0.7); EOS % 3.1 % (1.5-5.0); GRAN # 8.09 (1.4-6.5); GRAN % 78.8 % (50.0-68.0); HEMATOCRIT 28.1 % (42.0-52.0); LYMPH # 0.9 (1.2-3.4); LYMPH % 8.8 % (22.0-35.0); MEAN CELL VOLUME 70.1 fL (80.0-105.0); MEAN CORPUSCULAR HEMOGLOBIN 21.7 pg (25.0-35.0); MEAN PLATELET VOLUME 8.1 fl (7.0-11.0); MONO # 0.9 (0.1-0.6); PLATELET COUNT 673 10^3/uL (120.0-450.0); RED CELL DISTRIBUTION WIDTH 18.7 % (11.5-14.5); WHITE BLOOD COUNT 10.3 10^3/ul (4.5-11.0)
[2016-11-23 08:16] LABS: ALB/GLOB RATIO 0.8 (1.1-1.8); ALKALINE PHOSPHATASE 89 U/L (38-133); ALT/SGPT 17 U/L (7-56); AST/SGOT 51 U/L (15-59); BILIRUBIN,TOTAL 0.3 mg/dL (0.2-1.3); BLOOD UREA NITROGEN 5 mg/dL (7-21); CALCIUM 8.5 mg/dL (8.4-10.5); CARBON DIOXIDE 27 mmol/L (21-33); CHLORIDE 99 mmol/L (98-107); GFR AFRICAN-AMERICAN > 60; GLUCOSE,RANDOM 80 mg/dL (70-110); POTASSIUM 3.2 mmol/L (3.6-5.0); SODIUM 141 mmol/L (132-148); TOTAL PROTEIN 7.7 g/dL (5.8-8.3)
[2016-11-23] MEDS ORDERED: Potassium Chloride 20 mEq ER Tab PO ONE ×2 (08:26→08:27)
--- NOTE | 2016-11-23 08:31 | CP.PCM.PN ---
<Carmen Valadez - Last Filed: 11/23/16 12:50> Subjective - Date & Time of Evaluation Date of Evaluation: 11/23/16 Time of Evaluation: 08:28 - Subjective Subjective: SURGERY PROGRESS NOTE FOR DR. ANDINO Pt is seen and examined at bedside. Pt c/o of abdominal pain that is uncontrolled with the current analgesics regimen. Pt also c/o of 2 episodes of diarrhea. Denies having any fevers, chills N/V. He is tolerating the liquid diet and would like it advanced. Patient has pus draining from umbilical area and right lower back at site of yesterday's IR drainage. Objective - Vital Signs/Intake and Output Vital Signs (last 24 hours): Temp Pulse Resp BP Pulse Ox 99.6 F 100 H 20 141/90 100 11/22/16 22:09 11/22/16 22:09 11/22/16 22:09 11/22/16 22:09 11/22/16 17:13 Intake and Output: 11/23/16 11/23/16 06:59 18:59 Intake Total 180 1340 Output Total 2 Balance 178 1340 - Medications Medications: Current Medications Famotidine (Pepcid) 20 mg IVP Q12 [facility] Last Admin: 11/22/16 22:05 Dose: 20 mg Hydromorphone HCl (Dilaudid) 0.5 mg IVP Q4H PRN PRN Reason: Pain, moderate (4-7) Last Admin: 11/23/16 04:58 Dose: 0.5 mg Ceftriaxone Sodium (Rocephin 1 Gram Ivpb) 100 mls @ 100 mls/hr IVPB DAILY BRYANT PRN Reason: Protocol Last Admin: 11/22/16 19:27 Dose: 100 mls/hr Metronidazole (Flagyl) 100 mls @ 100 mls/hr IVPB Q8 BRYANT PRN Reason: Protocol Last Admin: 11/23/16 05:00 Dose: 100 mls/hr Sodium Chloride (Sodium Chloride 0.9%) 1,000 mls @ 100 mls/hr IV .Q10H [facility] Last Admin: 11/23/16 04:59 Dose: 100 mls/hr Ondansetron HCl (Zofran Inj) 4 mg IVP Q4H PRN PRN Reason: Nausea/Vomiting Potassium Chloride (K-Dur 20 Meq Er Tab) 20 meq PO ONCE ONE Stop: 11/23/16 08:27 - Labs Labs: 11/23/16 07:00 11/23/16 07:00 PT 12.2 Seconds (9.9-11.8) H 11/22/16 14:55 INR 1.13 (0.93-1.08) H 11/22/16 14:55 APTT 33.1 Seconds (23.7-30.8) H 11/22/16 14:55 - Constitutional Appears: Non-toxic, No Acute Distress - Head Exam Head Exam: ATRAUMATIC, NORMAL INSPECTION - ENT Exam ENT Exam: Mucous Membranes Moist - Respiratory Exam Respiratory Exam: absent: Accessory Muscle Use, Respiratory Distress - GI/Abdominal Exam GI & Abdominal Exam: Guarding, Soft, Tenderness. absent: Distended, Firm Additional comments: purulent drainage from umblilicus and from R lower back region. - Extremities Exam Extremities Exam: absent: Pedal Edema, Tenderness - Neurological Exam Neurological Exam: Alert, Awake, Oriented x3 - Psychiatric Exam Psychiatric exam: Normal Affect, Normal Mood - Skin Skin Exam: Dry, Intact, Normal Color, Warm Assessment and Plan - Assessment and Plan (Free Text) Assessment: 21M w. Crohn's and intra-abdominal abscesses. CT yesterday showed abscess on right psoas muscle extending to right lower abdomen and right pelvic side wall muscles. Fistula to anterior abdominal wall to right of midline. -Will repeat CT of abd with PO and IV consult -IR is consulted. -f/u GI recs -IVF -pain management -abx -tolerating diet -GI/DVT prophylaxis Will d/w Dr. Andino for further recs Carmen Valadez PGY1 <Dick Andino B - Last Filed: 11/23/16 16:35> Objective - Vital Signs/Intake and Output Vital Signs (last 24 hours): Temp Pulse Resp BP Pulse Ox 99.2 F 88 20 115/66 100 11/23/16 08:33 11/23/16 08:33 11/23/16 08:33 11/23/16 08:33 11/23/16 08:33 Intake and Output: 11/23/16 11/23/16 06:59 18:59 Intake Total 180 1940 Output Total 2 Balance 178 194 - Medications Medications: Current Medications Famotidine (Pepcid) 20 mg IVP Q12 [facility] Last Admin: 11/23/16 09:38 Dose: 20 mg Hydromorphone HCl (Dilaudid) 0.5 mg IVP Q3H PRN PRN Reason: Pain, moderate (4-7) Last Admin: 11/23/16 15:05 Dose: 0.5 mg Ceftriaxone Sodium (Rocephin 1 Gram Ivpb) 100 mls @ 100 mls/hr IVPB DAILY BRYANT PRN Reason: Protocol Last Admin: 11/23/16 09:38 Dose: 100 mls/hr Metronidazole (Flagyl) 100 mls @ 100 mls/hr IVPB Q8 BRYANT PRN Reason: Protocol Last Admin: 11/23/16 14:13 Dose: 100 mls/hr Sodium Chloride (Sodium Chloride 0.9%) 1,000 mls @ 100 mls/hr IV .Q10H [facility] Last Admin: 11/23/16 12:45 Dose: 100 mls/hr Multivitamins/Minerals (Therapeutic-M Tab) 1 tab PO DAILY [facility] Last Admin: 11/23/16 12:06 Dose: 1 tab Ondansetron HCl (Zofran Inj) 4 mg IVP Q4H PRN PRN Reason: Nausea/Vomiting - Labs Labs: 11/23/16 07:00 11/23/16 07:00 PT 12.2 Seconds (9.9-11.8) H 11/22/16 14:55 INR 1.13 (0.93-1.08) H 11/22/16 14:55 APTT 33.1 Seconds (23.7-30.8) H 11/22/16 14:55 Attending/Attestation - Attestation I have personally seen and examined this patient.: Yes I have fully participated in the care of the patient.: Yes I have reviewed all pertinent clinical information, including history, physical exam and plan: Yes Notes (Text): 11/23/16 16:34 Pt was seen and examined at bedside on 11/23/16 Agree with above note and assessment. Pl see consult for more detail. C/w current mx
[2016-11-23 08:34] VITALS: PULSE 88
[2016-11-23 09:31] LABS: IRON 10 ug/dL (45-180)
[2016-11-23] MEDS: cefTRIAXone 1 gm 100 ML IVPB SCH (09:38)
[2016-11-23] MEDS ORDERED: Barium Sulfate Susp 2.1% w/v, 2.0% w/w 450 mL Bottle PO ONE (09:45)
[2016-11-23] MEDS ORDERED: Iohexol 350 MG/100 ML VIAL ONE (09:48)
--- NOTE | 2016-11-23 10:00 | CP.PCM.CON ---
<Dar Stokes - Last Filed: 11/23/16 14:05> History of Present Illness - History of Present Illness History of Present Illness: PGY4 GI Fellow Consult Note Patient is a 21yo male with PMHx significant for Crohn's disease, diagnosed in 2014, not currently on therapy who presented to the ED with complaint of abdominal pain and purulent abdominal wounds. The patient has an extensive history of abdominal surgeries for fistulas/abscesses related to his long standing CD with most interventions performed at [facility]. He is a poor historian and cannot recall his last endoscopy, believing it to have been ~8 months ago and cannot state what medications he was previously on (questionable history of Remicade infusions?). Patient has been nonadherent to therapy and currently does not follow with a GI physician. More concerning is his avidity for narcotic medications and frequent ER visits requesting prescription narcotics with history of early refills when looking in the [place] Rx registry. The patient presented to our facility with complaint of abdominal pain for the past two weeks. He also notes purulent discharge from multiple open wounds on his abdomen. States he was previously evaluated and treated at [facility] but is seeking new opinions/physicians to care for him. He admits to fever/chills and diarrhea. Denies any weight loss, vision changes, rashes, hematochezia, melena. PMHx: See HPI PSHx: 7+ procedures for abscess/fistula formation, ? bowel resection (noted on CT but denied by patient) FHx: Mother - OA, Father - HTN Social: Denies tobacco, EtOH or illicit drug use Endo: Unclear, admits to possibly having had colonoscopy 8 months ago Review of Systems - Constitutional Constitutional: Chills, Fever, Malaise - EENT Eyes: absent: Change in Vision Nose/Mouth/Throat: absent: Sore Throat - Cardiovascular Cardiovascular: absent: Chest Pain, Edema, Palpitations - Respiratory Respiratory: absent: Cough, Dyspnea, Excessive Mucous Production - Gastrointestinal Gastrointestinal: Abdominal Pain, Cramping, Loose Stools. absent: Constipation , Dyspepsia, Dysphagia, Hematemesis, Hematochezia, Melena, Nausea, Vomiting - Genitourinary Genitourinary: absent: Dysuria, Urinary Frequency, Urinary Urgency - Musculoskeletal Musculoskeletal: Back Pain. absent: Neck Pain - Integumentary Integumentary: Wounds. absent: New Lesions, Skin Pain - Neurological Neurological: absent: Dizziness, Numbness, Focal Weakness - Psychiatric Psychiatric: absent: Anxiety, Depression - Endocrine Endocrine: absent: Polydipsia, Polyphagia, Polyuria - Hematologic/Lymphatic Hematologic: absent: Easy Bleeding, Easy Bruising, Lymphadenopathy Past Patient History - Past Social History Smoking Status: Never Smoked - CARDIAC Hx Cardiac Disorders: No - PULMONARY Hx Respiratory Disorders: No - NEUROLOGICAL Hx Neurological Disorder: No - HEENT Hx HEENT Problems: No - RENAL Hx Chronic Kidney Disease: No - ENDOCRINE/METABOLIC Hx Endocrine Disorders: No - HEMATOLOGICAL/ONCOLOGICAL Hx Blood Disorders: No Hx Anemia: Yes (Fe Def Anemia) - INTEGUMENTARY Hx Dermatological Problems: No - MUSCULOSKELETAL/RHEUMATOLOGICAL Hx Falls: No - GASTROINTESTINAL Hx Crohn's Disease: Yes - GENITOURINARY/GYNECOLOGICAL Hx Genitourinary Disorders: No - PSYCHIATRIC Hx Psychophysiologic Disorder: No Hx Substance Use: No - SURGICAL HISTORY Hx Surgeries: Yes Other/Comment: Abd surg. for intraabd. abscesses x 7 last surgery 10/2016 at [facility] [place] - ANESTHESIA Hx Anesthesia: No Meds Allergies/Adverse Reactions: Allergies Allergy/AdvReac Type Severity Reaction Status Date / Time FISH Allergy Verified 11/13/16 13:50 shellfish derived AdvReac ANGIOEDEMA Verified 11/22/16 10:53 - Medications Medications: Current Medications Famotidine (Pepcid) 20 mg IVP Q12 [facility] Last Admin: 11/23/16 09:38 Dose: 20 mg Hydromorphone HCl (Dilaudid) 0.5 mg IVP Q4H PRN PRN Reason: Pain, moderate (4-7) Last Admin: 11/23/16 09:04 Dose: 0.5 mg Ceftriaxone Sodium (Rocephin 1 Gram Ivpb) 100 mls @ 100 mls/hr IVPB DAILY [facility] PRN Reason: Protocol Last Admin: 11/23/16 09:38 Dose: 100 mls/hr Metronidazole (Flagyl) 100 mls @ 100 mls/hr IVPB Q8 [facility] PRN Reason: Protocol Last Admin: 11/23/16 05:00 Dose: 100 mls/hr Sodium Chloride (Sodium Chloride 0.9%) 1,000 mls @ 100 mls/hr IV .Q10H [facility] Last Admin: 11/23/16 04:59 Dose: 100 mls/hr Ondansetron HCl (Zofran Inj) 4 mg IVP Q4H PRN PRN Reason: Nausea/Vomiting Physical Exam - Constitutional Appears: Non-toxic, No Acute Distress - Eye Exam Eye Exam: EOMI, PERRL - ENT Exam ENT Exam: Mucous Membranes Moist - Respiratory Exam Respiratory Exam: Clear to Auscultation Bilateral. absent: Rales, Rhonchi, Wheezes - Cardiovascular Exam Cardiovascular Exam: RRR, +S1, +S2 - GI/Abdominal Exam GI & Abdominal Exam: Normal Bowel Sounds, Soft, Tenderness. absent: Distended, Firm, Guarding Additional comments: open sores on abdomen with purulent discharge - Extremities Exam Extremities exam: Positive for: normal inspection. Negative for: pedal edema - Neurological Exam Neurological exam: Alert, Oriented x3 - Psychiatric Exam Psychiatric exam: Normal Affect, Normal Mood - Skin Skin Exam: Dry, Warm Results - Vital Signs Recent Vital Signs: Last Vital Signs Temp 99.2 F 11/23/16 08:33 Pulse 88 11/23/16 08:33 Resp 20 11/23/16 08:33 BP 115/66 11/23/16 08:33 Pulse Ox 100 11/23/16 08:33 - Labs Result Diagrams: 11/23/16 07:00 11/23/16 07:00 Labs: Laboratory Results - last 24 hr 11/23/16 11/23/16 07:00 07:15 WBC 10.3 D RBC 4.01 Hgb 8.7 L Hct 28.1 L MCV 70.1 L MCH 21.7 L MCHC 31.0 RDW 18.7 H Plt Count 673 H MPV 8.1 Gran % 78.8 H Lymph % (Auto) 8.8 L Green % (Auto) 9.0 H Eos % (Auto) 3.1 Baso % (Auto) 0.3 Gran # 8.09 H Lymph # 0.9 L Green # 0.9 H Eos # 0.3 Baso # 0.03 Sodium 141 Potassium 3.2 L Chloride 99 Carbon Dioxide 27 Anion Gap 18 BUN 5 L Creatinine 0.9 Est GFR ( Amer) > 60 Est GFR (Non-Af Amer) > 60 Random Glucose 80 Calcium 8.5 Iron 10 L TIBC 269 % Saturation 4 L Total Bilirubin 0.3 AST 51 ALT 17 Alkaline Phosphatase 89 Total Protein 7.7 Albumin 3.4 Globulin 4.3 Albumin/Globulin Ratio 0.8 L Assessment & Plan - Assessment and Plan (Free Text) Assessment: Patient is a 21yo male with PMHx significant for Crohn's disease, diagnosed in 2014, not currently on therapy who presented to the ED with complaint of abdominal pain and purulent abdominal wounds. 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 -Cheilitis -SARAH Plan: -Recommend IR and surgical evaluations for fistulizing CD/abscess formation -CT A/P with IV/PO ordered -Patient has been nonadherent to therapy and does not follow up -Pain seeking behavior previously, cautious use of narcotic medications -Cheilitis possibly related to iron deficiency -Patient would not benefit from steroid therapy given suspicion of ongoing infectious process; will not heal fistulous disease -Would ultimately benefit from immunosuppressive therapy if he follows up as outpatient - Date & Time Date: 11/23/16 Time: 07:20 <Michael Schaefer MD - Last Filed: 11/23/16 17:58> Meds - Medications Medications: Current Medications Famotidine (Pepcid) 20 mg IVP Q12 [facility] Last Admin: 11/23/16 09:38 Dose: 20 mg Hydromorphone HCl (Dilaudid) 0.5 mg IVP Q3H PRN PRN Reason: Pain, moderate (4-7) Last Admin: 11/23/16 15:05 Dose: 0.5 mg Ceftriaxone Sodium (Rocephin 1 Gram Ivpb) 100 mls @ 100 mls/hr IVPB DAILY [facility] PRN Reason: Protocol Last Admin: 11/23/16 09:38 Dose: 100 mls/hr Metronidazole (Flagyl) 100 mls @ 100 mls/hr IVPB Q8 [facility] PRN Reason: Protocol Last Admin: 11/23/16 14:13 Dose: 100 mls/hr Sodium Chloride (Sodium Chloride 0.9%) 1,000 mls @ 100 mls/hr IV .Q10H [facility] Last Admin: 11/23/16 12:45 Dose: 100 mls/hr Multivitamins/Minerals (Therapeutic-M Tab) 1 tab PO DAILY [facility] Last Admin: 11/23/16 12:06 Dose: 1 tab Ondansetron HCl (Zofran Inj) 4 mg IVP Q4H PRN PRN Reason: Nausea/Vomiting Results - Vital Signs Recent Vital Signs: Last Vital Signs Temp 99.2 F 11/23/16 08:33 Pulse 88 11/23/16 08:33 Resp 20 11/23/16 08:33 BP 115/66 11/23/16 08:33 Pulse Ox 100 11/23/16 08:33 - Labs Result Diagrams: 11/23/16 07:00 11/23/16 07:00 Labs: Laboratory Results - last 24 hr 11/23/16 11/23/16 07:00 07:15 WBC 10.3 D RBC 4.01 Hgb 8.7 L Hct 28.1 L MCV 70.1 L MCH 21.7 L MCHC 31.0 RDW 18.7 H Plt Count 673 H MPV 8.1 Gran % 78.8 H Lymph % (Auto) 8.8 L Green % (Auto) 9.0 H Eos % (Auto) 3.1 Baso % (Auto) 0.3 Gran # 8.09 H Lymph # 0.9 L Green # 0.9 H Eos # 0.3 Baso # 0.03 Sodium 141 Potassium 3.2 L Chloride 99 Carbon Dioxide 27 Anion Gap 18 BUN 5 L Creatinine 0.9 Est GFR ( Amer) > 60 Est GFR (Non-Af Amer) > 60 Random Glucose 80 Calcium 8.5 Iron 10 L TIBC 269 % Saturation 4 L Ferritin 23.0 Total Bilirubin 0.3 AST 51 ALT 17 Alkaline Phosphatase 89 Total Protein 7.7 Albumin 3.4 Globulin 4.3 Albumin/Globulin Ratio 0.8 L Vitamin B12 729 Folate 13.4 Attending/Attestation - Attestation I have personally seen and examined this patient.: Yes I have fully participated in the care of the patient.: Yes I have reviewed all pertinent clinical information: Yes Notes (Text): 11/23/16 17:56 Pt seen and examined with GI fellow on rounds. This is a 21 yo male with PMHx significant for Crohn's disease, diagnosed in 2014, not currently on therapy who presented to the ED with complaint of abdominal pain and purulent abdominal wounds. CT abdomen with po contrast and drainage of fistula. Continue broad spectrum antibiotics. Will benefit from biologicals if he establishes outpatient care. Needs small bowel imaging- CTE ziegler MRE and repeat colonoscopy. Will follow
--- NOTE | 2016-11-23 10:15 | CP.PCM.PN ---
<Callum Vazquez - Last Filed: 11/23/16 17:46> Subjective - Date & Time of Evaluation Date of Evaluation: 11/23/16 Time of Evaluation: 07:50 - Subjective Subjective: 21 year old male with a pmh of Crohn's and Fe def anemia presents to the the ED with three purulent draining wounds on the right lower quadrant and one wound on his right flank that appeared like a drain site from a previous procedure. Today he complains of neck/back pain and diarrhea. He denies headache, dizziness, chest pain, shortness of breath, nausea or vomiting. Objective - Vital Signs/Intake and Output Vital Signs (last 24 hours): Temp Pulse Resp BP Pulse Ox 99.2 F 88 20 115/66 100 11/23/16 08:33 11/23/16 08:33 11/23/16 08:33 11/23/16 08:33 11/23/16 08:33 Intake and Output: 11/23/16 11/23/16 06:59 18:59 Intake Total 180 1340 Output Total 2 Balance 178 1340 - Medications Medications: Current Medications Famotidine (Pepcid) 20 mg IVP Q12 [facility] Last Admin: 11/23/16 09:38 Dose: 20 mg Hydromorphone HCl (Dilaudid) 0.5 mg IVP Q3H PRN PRN Reason: Pain, moderate (4-7) Ceftriaxone Sodium (Rocephin 1 Gram Ivpb) 100 mls @ 100 mls/hr IVPB DAILY [facility] PRN Reason: Protocol Last Admin: 11/23/16 09:38 Dose: 100 mls/hr Metronidazole (Flagyl) 100 mls @ 100 mls/hr IVPB Q8 [facility] PRN Reason: Protocol Last Admin: 11/23/16 05:00 Dose: 100 mls/hr Sodium Chloride (Sodium Chloride 0.9%) 1,000 mls @ 100 mls/hr IV .Q10H [facility] Last Admin: 11/23/16 04:59 Dose: 100 mls/hr Ondansetron HCl (Zofran Inj) 4 mg IVP Q4H PRN PRN Reason: Nausea/Vomiting - Labs Labs: 11/23/16 07:00 11/23/16 07:00 PT 12.2 Seconds (9.9-11.8) H 11/22/16 14:55 INR 1.13 (0.93-1.08) H 11/22/16 14:55 APTT 33.1 Seconds (23.7-30.8) H 11/22/16 14:55 - Constitutional Appears: Non-toxic, No Acute Distress - Head Exam Head Exam: ATRAUMATIC, NORMOCEPHALIC - Eye Exam Eye Exam: EOMI - ENT Exam ENT Exam: Mucous Membranes Moist - Neck Exam Neck Exam: Full ROM - Respiratory Exam Respiratory Exam: Clear to Ausculation Bilateral, NORMAL BREATHING PATTERN. absent: Rhonchi, Wheezes - Cardiovascular Exam Cardiovascular Exam: REGULAR RHYTHM, RRR, +S1, +S2. absent: JVD - GI/Abdominal Exam GI & Abdominal Exam: Soft, Tenderness, Normal Bowel Sounds Additional comments: 3 Non-Healing Lesions in the RLQ of the abdomen have been cleaned from previous day. - Extremities Exam Extremities Exam: Full ROM. absent: Joint Swelling, Tenderness - Neurological Exam Neurological Exam: Alert, Awake, Oriented x3 - Psychiatric Exam Psychiatric exam: Normal Affect, Normal Mood - Skin Skin Exam: Dry, Intact, Normal Color, Warm Assessment and Plan - Assessment and Plan (Free Text) Assessment: 21M presents with untreated Crohn's and a 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 Plan: Abscesses/fistula -Surgical Consult: Dr. Humphries -IR Consult: Dr. Farmer -possible procedure tomorrow -GI Consult: Dr. Schaefer -rec surg/IR consult -benefit from steroid therapy and ultimately from immunosuppressive therapy if he follows up as outpatient -Wound Culture -Blood Culture [id number] -CT Abd/Pelvis 11/22 -suspicious for abscess formation at and adjacent to the right psoas muscle extednign ot the right lower abdomen and right pelvis/pelvic sidewall muscles -suspicious for fistula to the anterior abdominal wall to the right of the midline -please see full report --CT Abd/Pelvis 11/23 -extensive right she abdominal/she pelvic phlegmonous Clement tarry process with coalescing small abscesses -please see full report -Ceftriaxone -Flagyl -Dilaudid -IV NS -NPO Anemia -Fe low -%Sat low -Ferritin normal -TIBC normal -B12 & Folate normal -UDS, UA -CBC, CMP Hypokalemia -KCl given PPX -Nausea Zofran -GI Pepcid -DVT SCD's <José Ayoub - Last Filed: 11/23/16 18:19> Objective - Vital Signs/Intake and Output Vital Signs (last 24 hours): Temp Pulse Resp BP Pulse Ox 99.2 F 88 20 115/66 100 11/23/16 08:33 11/23/16 08:33 11/23/16 08:33 11/23/16 08:33 11/23/16 08:33 Intake and Output: 11/23/16 11/23/16 06:59 18:59 Intake Total 180 1940 Output Total 2 Balance 178 194 - Medications Medications: Current Medications Famotidine (Pepcid) 20 mg IVP Q12 [facility] Last Admin: 11/23/16 09:38 Dose: 20 mg Hydromorphone HCl (Dilaudid) 0.5 mg IVP Q3H PRN PRN Reason: Pain, moderate (4-7) Last Admin: 11/23/16 18:08 Dose: 0.5 mg Ceftriaxone Sodium (Rocephin 1 Gram Ivpb) 100 mls @ 100 mls/hr IVPB DAILY [facility] PRN Reason: Protocol Last Admin: 11/23/16 09:38 Dose: 100 mls/hr Metronidazole (Flagyl) 100 mls @ 100 mls/hr IVPB Q8 [facility] PRN Reason: Protocol Last Admin: 11/23/16 14:13 Dose: 100 mls/hr Sodium Chloride (Sodium Chloride 0.9%) 1,000 mls @ 100 mls/hr IV .Q10H [facility] Last Admin: 11/23/16 12:45 Dose: 100 mls/hr Multivitamins/Minerals (Therapeutic-M Tab) 1 tab PO DAILY [facility] Last Admin: 11/23/16 12:06 Dose: 1 tab Ondansetron HCl (Zofran Inj) 4 mg IVP Q4H PRN PRN Reason: Nausea/Vomiting - Labs Labs: 11/23/16 07:00 11/23/16 07:00 PT 12.2 Seconds (9.9-11.8) H 11/22/16 14:55 INR 1.13 (0.93-1.08) H 11/22/16 14:55 APTT 33.1 Seconds (23.7-30.8) H 11/22/16 14:55 Assessment and Plan - Assessment and Plan (Free Text) Assessment: attending note; Patient seen and examined with resident. Patient is a 21 year old male with a pmh of Crohn's ,multiple surgeries, recurrent abscess drainage, Fistula and iron deficiency anemia Is admitted to [facility] for the first time for recurrent nonhealing Crohn's/fistula infection. Started on IV Rocephin and Flagyl. blood culture is negative so far. Patient is afebrile and nontoxic. CT showed multiple abscess with chronic changes. Case discussed with surgery in detail. Case discussed with IR Dr. Farmer in detail. Will review the CT with intervention radiology tomorrow for possible need for drainage. GI evaluation appreciated. chronic iron deficiency anemia; started on IV iron. Dietitian evaluation requested. upon discharge the patient will follow-up with PMD . patient needs close follow-up with GI and surgery as outpatient. Attending/Attestation - Attestation I have personally seen and examined this patient.: Yes I have fully participated in the care of the patient.: Yes I have reviewed all pertinent clinical information, including history, physical exam and plan: Yes
[2016-11-23] MEDS ORDERED: Potassium Chloride 20 mEq ER Tab PO STA (10:50)
[2016-11-23] MEDS ORDERED: Iron Sucrose 100 mg/5 ml Inj IVP ONE (10:50)
[2016-11-23 12:05] LABS: FOLATE 13.4 ng/mL
[2016-11-23] MEDS: Multivitamin With Minerals Tab PO SCH (12:06)
--- NOTE | 2016-11-23 16:16 | CT ---
PROCEDURE: CT Abdomen and Pelvis with contrast HISTORY: abscess COMPARISON: None. TECHNIQUE: Contrast dose: 1 bilateral Redi cat Radiation dose: Total exam DLP = 216 mGy-cm. FINDINGS: LOWER THORAX: Unremarkable. LIVER: The mild prominence of the liver is as before GALLBLADDER AND BILE DUCTS: Unremarkable. PANCREAS: Unremarkable. No gross lesion or ductal dilatation. SPLEEN: 7 mm splenic cyst and/or hemangioma is suggested -unchanged ADRENALS: Unremarkable. No mass. KIDNEYS AND URETERS: Unremarkable. No hydronephrosis. No solid mass. VASCULATURE: Unremarkable. No aortic aneurysm. BOWEL: Again limited evaluation given the un even oral contrast administration. The prior right mid and lower abdominal surgical chad are noted consistent with prior bowel resection and anastomosis. No obstruction at this point appreciated. Right pericolic gutter fluid with blending phlegmons and coalescing small abscesses are suggested. The phlegmon extends into the right psoas musculature as before (gas droplet here is present) and into the posterior subcutaneous soft tissues at the iliac crest level where skin fistulization is suggested. (axial series 2, image 102) . The amorphous intramuscular phlegmonous inflammatory process extends into the right iliacus muscle . Right gluteal subcutaneous coalescent small abscesses are suggested (axial series 2, image 124) . A discrete drainable abscess is not clearly defined The phlegmonous muscular inflammatory processes contiguous with the right lumbar vertebrae no gross intracanicular extension noted. No gross lumbar osseous destruction appreciated. APPENDIX: Not identified PERITONEUM: Free-fluid No free air. Please note above bowel description LYMPH NODES: Unremarkable. No enlarged lymph nodes. BLADDER: Distended REPRODUCTIVE: Unremarkable. BONES: No acute fracture. OTHER FINDINGS: None. IMPRESSION: Extensive right she abdominal/she pelvic phlegmonous Clement tarry process with coalescing small abscesses. Extensions as detailed above. A discrete drainable abscess is difficult to discern. Postsurgical bowel changes. No high-grade bowel obstruction. The few extra luminal gas droplets present appear related to the phlegmon/ micro abscesses present. No gross free air appreciated .
[2016-11-24] MEDS: HYDROmorphone 0.5 mg/0.5 ml ISec IVP PRN ×4 (03:02→12:47)
[2016-11-24] MEDS: metroNIDAZOLE IV 500 mg/100 ml 100 ML IVPB SCH (05:28)
--- NOTE | 2016-11-24 07:04 | CP.PCM.PN ---
<Carmen Valadez - Last Filed: 11/24/16 15:34> Subjective - Date & Time of Evaluation Date of Evaluation: 11/24/16 Time of Evaluation: 07:00 - Subjective Subjective: SURGERY PROGRESS NOTE FOR DR. ANDINO Patient is seen and examined at bedside. Patient states that his abd pain is not adequately controlled with the current pain regimen. Otherwise, no N/V/F/ C. Tolerating diet. Objective - Vital Signs/Intake and Output Vital Signs (last 24 hours): Temp Pulse Resp BP Pulse Ox 99.2 F 88 20 115/66 100 11/23/16 08:33 11/23/16 08:33 11/23/16 08:33 11/23/16 08:33 11/23/16 08:33 Intake and Output: 11/24/16 11/24/16 06:59 18:59 Intake Total 600 Balance 600 - Medications Medications: Current Medications Famotidine (Pepcid) 20 mg IVP Q12 [facility] Last Admin: 11/23/16 21:17 Dose: 20 mg Hydromorphone HCl (Dilaudid) 0.5 mg IVP Q3H PRN PRN Reason: Pain, moderate (4-7) Last Admin: 11/24/16 06:03 Dose: 0.5 mg Ceftriaxone Sodium (Rocephin 1 Gram Ivpb) 100 mls @ 100 mls/hr IVPB DAILY [facility] PRN Reason: Protocol Last Admin: 11/23/16 09:38 Dose: 100 mls/hr Metronidazole (Flagyl) 100 mls @ 100 mls/hr IVPB Q8 [facility] PRN Reason: Protocol Last Admin: 11/24/16 05:28 Dose: 100 mls/hr Sodium Chloride (Sodium Chloride 0.9%) 1,000 mls @ 100 mls/hr IV .Q10H [facility] Last Admin: 11/23/16 23:30 Dose: 100 mls/hr Multivitamins/Minerals (Therapeutic-M Tab) 1 tab PO DAILY [facility] Last Admin: 11/23/16 12:06 Dose: 1 tab Ondansetron HCl (Zofran Inj) 4 mg IVP Q4H PRN PRN Reason: Nausea/Vomiting - Labs Labs: 11/23/16 07:00 11/23/16 07:00 PT 12.2 Seconds (9.9-11.8) H 11/22/16 14:55 INR 1.13 (0.93-1.08) H 11/22/16 14:55 APTT 33.1 Seconds (23.7-30.8) H 11/22/16 14:55 - Constitutional Appears: Non-toxic, No Acute Distress - Head Exam Head Exam: ATRAUMATIC, NORMAL INSPECTION - Respiratory Exam Respiratory Exam: absent: Accessory Muscle Use, Prolonged Expiratory Phase - GI/Abdominal Exam GI & Abdominal Exam: Soft, Tenderness. absent: Distended, Firm, Guarding Additional comments: purulent drainage from umbilical and right lower back region - Neurological Exam Neurological Exam: Alert, Awake, Oriented x3 - Psychiatric Exam Psychiatric exam: Normal Affect, Normal Mood - Skin Skin Exam: Dry, Intact, Normal Color, Warm Assessment and Plan - Assessment and Plan (Free Text) Assessment: 21M w. Crohn's and intra-abdominal abscesses. CT of abd/pelvis with PO & IV contrast was performed yesterday which showed extensive right she abd/she pelvic phlegmonous Clement tarry process with coalescing small abscesses. Please see full report for details. -IR is consulted. No drainage plan -GI is following pt. -IVF -Continue current pain management regimen -abx -tolerating liquid diet -GI/DVT prophylaxis Will d/w Dr. Andino for further recs Carmen Valadez PGY1 <Dick Andino B - Last Filed: 11/25/16 15:29> Objective - Vital Signs/Intake and Output Vital Signs (last 24 hours): Temp Pulse Resp BP Pulse Ox 98.7 F 88 20 131/73 98 11/24/16 09:00 11/24/16 09:00 11/24/16 09:00 11/24/16 09:00 11/24/16 09:00 - Labs Labs: 11/23/16 07:00 11/23/16 07:00 PT 12.2 Seconds (9.9-11.8) H 11/22/16 14:55 INR 1.13 (0.93-1.08) H 11/22/16 14:55 APTT 33.1 Seconds (23.7-30.8) H 11/22/16 14:55 Attending/Attestation - Attestation I have personally seen and examined this patient.: Yes I have fully participated in the care of the patient.: Yes I have reviewed all pertinent clinical information, including history, physical exam and plan: Yes Notes (Text): 11/25/16 15:28 Pt was seen and examined at bedside on 11/24/16 Agree with above note and assessment F/U as out pt f/u with [facility]
[2016-11-24] MEDS: Sodium Chloride 0.9% 1,000 ML IV SCH (08:00)
[2016-11-24 09:01] VITALS: BP 131/73; TEMP 98.7; O2SAT 98
[2016-11-24] MEDS: cefTRIAXone 1 gm 100 ML IVPB SCH (09:05)
--- NOTE | 2016-11-24 09:46 | PN ---
DATE: 11/24/2016 I was asked to review the patient's previous 2 abdominal/pelvic CT scans for possible abscess drainage. The oral contrast remains suboptimal on the second scan. There is incomplete bowel opacification. There is enlargement and inflammatory change in the right iliopsoas area. No obvious drainable abscess is seen. No signs of free air or obstruction are appreciated. There may be a punctate area of air in the right psoas muscle. Given the appearance at this time, the patient is not a candidate for percutaneous drainage. He may benefit from evaluation by a colorectal specialist and compliance in the treatment of his Crohn's disease. Hasmukh Farmer MD cc: [id number] TT: 11/24/2016 09:46:04 Confirmation # [id number] Dictation # [id number] [id number]
--- NOTE | 2016-11-24 09:58 | CP.PCM.PN ---
Subjective - Date & Time of Evaluation Date of Evaluation: 11/24/16 Time of Evaluation: 09:45 Objective - Vital Signs/Intake and Output Vital Signs (last 24 hours): Temp Pulse Resp BP Pulse Ox 98.7 F 88 20 131/73 98 11/24/16 09:00 11/24/16 09:00 11/24/16 09:00 11/24/16 09:00 11/24/16 09:00 Intake and Output: 11/24/16 11/24/16 06:59 18:59 Intake Total 600 Balance 600 - Medications Medications: Current Medications Famotidine (Pepcid) 20 mg IVP Q12 [facility] Last Admin: 11/24/16 09:04 Dose: 20 mg Hydromorphone HCl (Dilaudid) 0.5 mg IVP Q3H PRN PRN Reason: Pain, moderate (4-7) Last Admin: 11/24/16 09:04 Dose: 0.5 mg Ceftriaxone Sodium (Rocephin 1 Gram Ivpb) 100 mls @ 100 mls/hr IVPB DAILY [facility] PRN Reason: Protocol Last Admin: 11/24/16 09:05 Dose: 100 mls/hr Metronidazole (Flagyl) 100 mls @ 100 mls/hr IVPB Q8 [facility] PRN Reason: Protocol Last Admin: 11/24/16 05:28 Dose: 100 mls/hr Sodium Chloride (Sodium Chloride 0.9%) 1,000 mls @ 100 mls/hr IV .Q10H [facility] Last Admin: 11/23/16 23:30 Dose: 100 mls/hr Multivitamins/Minerals (Therapeutic-M Tab) 1 tab PO DAILY [facility] Last Admin: 11/23/16 12:06 Dose: 1 tab Ondansetron HCl (Zofran Inj) 4 mg IVP Q4H PRN PRN Reason: Nausea/Vomiting - Labs Labs: 11/23/16 07:00 11/23/16 07:00 PT 12.2 Seconds (9.9-11.8) H 11/22/16 14:55 INR 1.13 (0.93-1.08) H 11/22/16 14:55 APTT 33.1 Seconds (23.7-30.8) H 11/22/16 14:55 - Constitutional Appears: Non-toxic, No Acute Distress - Head Exam Head Exam: ATRAUMATIC, NORMOCEPHALIC - Eye Exam Eye Exam: EOMI - ENT Exam ENT Exam: Mucous Membranes Moist - Neck Exam Neck Exam: Full ROM - Respiratory Exam Respiratory Exam: Clear to Ausculation Bilateral, NORMAL BREATHING PATTERN - Cardiovascular Exam Cardiovascular Exam: REGULAR RHYTHM, RRR, +S1, +S2. absent: JVD - GI/Abdominal Exam GI & Abdominal Exam: Firm (right side), Soft (left side), Tenderness (right side ), Normal Bowel Sounds Additional comments: clean dressings applied to his wounds today - Extremities Exam Extremities Exam: Full ROM. absent: Joint Swelling, Pedal Edema, Tenderness - Neurological Exam Neurological Exam: Alert, Awake - Psychiatric Exam Psychiatric exam: Normal Affect, Normal Mood - Skin Skin Exam: Dry, Intact, Normal Color, Warm
[2016-11-24] MEDS ORDERED: Oxycodone/Acetaminophen 5/325 mg Tab PO PRN (10:09)
--- NOTE | 2016-11-24 10:24 | CP.PCM.DIS ---
Provider - Provider Date of Admission: 11/22/16 17:08 Attending physician: José Ayoub MD Primary care physician: Brendan Ward MD Time Spent in preparation of Discharge (in minutes): 35 Hospital Course - Lab Results Lab Results: Micro Results 11/23/16 18:38 Abdomen Gram Stain - Final Most Recent Lab Values WBC 10.3 10^3/ul (4.5-11.0) D 11/23/16 07:00 RBC 4.01 10^6/uL (3.5-6.1) 11/23/16 07:00 Hgb 8.7 gm/dL (14.0-18.0) L 11/23/16 07:00 Hct 28.1 % (42.0-52.0) L 11/23/16 07:00 MCV 70.1 fL (80.0-105.0) L 11/23/16 07:00 MCH 21.7 pg (25.0-35.0) L 11/23/16 07:00 MCHC 31.0 g/dl (31.0-37.0) 11/23/16 07:00 RDW 18.7 % (11.5-14.5) H 11/23/16 07:00 Plt Count 673 10^3/uL (120.0-450.0) H 11/23/16 07:00 MPV 8.1 fl (7.0-11.0) 11/23/16 07:00 Gran % 78.8 % (50.0-68.0) H 11/23/16 07:00 Lymph % (Auto) 8.8 % (22.0-35.0) L 11/23/16 07:00 Starke % (Auto) 9.0 % (1.0-6.0) H 11/23/16 07:00 Eos % (Auto) 3.1 % (1.5-5.0) 11/23/16 07:00 Baso % (Auto) 0.3 % (0.0-3.0) 11/23/16 07:00 Gran # 8.09 (1.4-6.5) H 11/23/16 07:00 Lymph # 0.9 (1.2-3.4) L 11/23/16 07:00 Starke # 0.9 (0.1-0.6) H 11/23/16 07:00 Eos # 0.3 (0.0-0.7) 11/23/16 07:00 Baso # 0.03 K/mm3 (0.0-2.0) 11/23/16 07:00 PT 12.2 Seconds (9.9-11.8) H 11/22/16 14:55 INR 1.13 (0.93-1.08) H 11/22/16 14:55 APTT 33.1 Seconds (23.7-30.8) H 11/22/16 14:55 Sodium 141 mmol/L (132-148) 11/23/16 07:00 Potassium 3.2 mmol/L (3.6-5.0) L 11/23/16 07:00 Chloride 99 mmol/L (98-107) 11/23/16 07:00 Carbon Dioxide 27 mmol/L (21-33) 11/23/16 07:00 Anion Gap 18 (10-20) 11/23/16 07:00 BUN 5 mg/dL (7-21) L 11/23/16 07:00 Creatinine 0.9 mg/dL (0.5-1.4) 11/23/16 07:00 Est GFR ( Amer) > 60 11/23/16 07:00 Est GFR (Non-Af Amer) > 60 11/23/16 07:00 POC Glucose (mg/dL) 117 mg/dL (65-110) H 11/24/16 07:32 Random Glucose 80 mg/dL (70-110) 11/23/16 07:00 Calcium 8.5 mg/dL (8.4-10.5) 11/23/16 07:00 Iron 10 ug/dL (45-180) L 11/23/16 07:15 TIBC 269 ug/dL (261-462) 11/23/16 07:15 % Saturation 4 % (20-55) L 11/23/16 07:15 Ferritin 23.0 ng/mL 11/23/16 07:00 Total Bilirubin 0.3 mg/dL (0.2-1.3) 11/23/16 07:00 AST 51 U/L (15-59) 11/23/16 07:00 ALT 17 U/L (7-56) 11/23/16 07:00 Alkaline Phosphatase 89 U/L (38-133) 11/23/16 07:00 Total Protein 7.7 g/dL (5.8-8.3) 11/23/16 07:00 Albumin 3.4 g/dL (3.0-4.8) 11/23/16 07:00 Globulin 4.3 gm/dL 11/23/16 07:00 Albumin/Globulin Ratio 0.8 (1.1-1.8) L 11/23/16 07:00 Lipase 111 U/L (23-300) 11/22/16 13:30 Vitamin B12 729 pg/mL (239-931) 11/23/16 07:00 Folate 13.4 ng/mL 11/23/16 07:00 Blood Type A POSITIVE 11/22/16 13:30 Blood Type Confirm A POSITIVE 11/22/16 13:51 Antibody Screen Negative 11/22/16 13:30 BBK History Checked No verified bt 11/22/16 13:30 - Date & Time of H&P Date of H&P: 11/24/16 Time of H&P: 10:00 Discharge Exam - Head Exam Head Exam: ATRAUMATIC, NORMAL INSPECTION Discharge Plan - Discharge Medications Prescriptions: Amoxicillin/Clavulanate [Augmentin 875 MG-125 MG] 1 tab PO BID #10 tab oxyCODONE/Acetaminophen [Percocet 5/325 mg Tab] 1 ea PO Q6 #10 tab - Follow Up Plan Condition: STABLE Disposition: HOME/ ROUTINE
[2016-11-24] MEDS: Multivitamin With Minerals Tab PO SCH (12:07)
--- NOTE | 2016-11-24 12:09 | CP.PCM.PN ---
<Dar Stokes - Last Filed: 11/24/16 12:13> Subjective - Date & Time of Evaluation Date of Evaluation: 11/24/16 Time of Evaluation: 07:30 - Subjective Subjective: PGY4 GI Fellow Progress Note - LATE ENTRY Patient seen and examined bedside this morning. The patient continues to endorse right lower back pain and abdominal cramping despite tolerating diet without issue and requesting more food. Denies fever, chills, nausea, vomiting. 12 system ROS performed and negative except where stated. Objective - Vital Signs/Intake and Output Vital Signs (last 24 hours): Temp Pulse Resp BP Pulse Ox 98.7 F 88 20 131/73 98 11/24/16 09:00 11/24/16 09:00 11/24/16 09:00 11/24/16 09:00 11/24/16 09:00 Intake and Output: 11/24/16 11/24/16 06:59 18:59 Intake Total 600 Balance 600 - Medications Medications: Current Medications Famotidine (Pepcid) 20 mg IVP Q12 [facility] Last Admin: 11/24/16 09:04 Dose: 20 mg Hydromorphone HCl (Dilaudid) 0.5 mg IVP Q3H PRN PRN Reason: Pain, moderate (4-7) Last Admin: 11/24/16 09:04 Dose: 0.5 mg Ceftriaxone Sodium (Rocephin 1 Gram Ivpb) 100 mls @ 100 mls/hr IVPB DAILY [facility] PRN Reason: Protocol Last Admin: 11/24/16 09:05 Dose: 100 mls/hr Metronidazole (Flagyl) 100 mls @ 100 mls/hr IVPB Q8 [facility] PRN Reason: Protocol Last Admin: 11/24/16 05:28 Dose: 100 mls/hr Sodium Chloride (Sodium Chloride 0.9%) 1,000 mls @ 100 mls/hr IV .Q10H [facility] Last Admin: 11/23/16 23:30 Dose: 100 mls/hr Multivitamins/Minerals (Therapeutic-M Tab) 1 tab PO DAILY [facility] Last Admin: 11/23/16 12:06 Dose: 1 tab Ondansetron HCl (Zofran Inj) 4 mg IVP Q4H PRN PRN Reason: Nausea/Vomiting Oxycodone/Acetaminophen (Percocet 5/325 Mg Tab) 1 tab PO Q4H PRN PRN Reason: Pain, moderate (4-7) Stop: 11/27/16 10:10 - Labs Labs: 11/23/16 07:00 11/23/16 07:00 PT 12.2 Seconds (9.9-11.8) H 11/22/16 14:55 INR 1.13 (0.93-1.08) H 11/22/16 14:55 APTT 33.1 Seconds (23.7-30.8) H 11/22/16 14:55 - Constitutional Appears: Non-toxic, No Acute Distress - Eye Exam Eye Exam: EOMI, PERRL - ENT Exam ENT Exam: Mucous Membranes Dry Additional comments: cheilitis - Respiratory Exam Respiratory Exam: Clear to Ausculation Bilateral. absent: Rales, Rhonchi, Wheezes - Cardiovascular Exam Cardiovascular Exam: RRR, +S1, +S2 - GI/Abdominal Exam GI & Abdominal Exam: Soft, Tenderness (diffuse), Normal Bowel Sounds. absent: Distended, Firm, Guarding, Rigid, Organomegaly Additional comments: open wounds with purulent drainage - Extremities Exam Extremities Exam: Normal Inspection. absent: Pedal Edema - Neurological Exam Neurological Exam: Alert, Awake, Oriented x3 - Psychiatric Exam Psychiatric exam: Normal Affect, Normal Mood - Skin Skin Exam: Warm Additional comments: multiple abdominal wounds Assessment and Plan - Assessment and Plan (Free Text) Assessment: Patient is a 21yo male with PMHx significant for Crohn's disease, diagnosed in 2014, not currently on therapy who presented to the ED with complaint of abdominal pain and purulent abdominal wounds. 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 -Cheilitis -SARAH Plan: -Patient to be D/C on antibiotics per primary service -IR and surgery have evaluated patient; recommend colorectal surgical evaluation which is not available at [facility] [place]We too recommend that patient follow up at [facility] for ongoing care of his CD and strongly urge patient to comply with outpatient follow up and initiation of immunosuppresive medications to treat his disease <Shilpa Hamlin - Last Filed: 11/24/16 15:38> Objective - Vital Signs/Intake and Output Vital Signs (last 24 hours): Temp Pulse Resp BP Pulse Ox 98.7 F 88 20 131/73 98 11/24/16 09:00 11/24/16 09:00 11/24/16 09:00 11/24/16 09:00 11/24/16 09:00 Intake and Output: 11/24/16 11/24/16 06:59 18:59 Intake Total 600 900 Output Total 1200 Balance 600 -300 - Labs Labs: 11/23/16 07:00 11/23/16 07:00 PT 12.2 Seconds (9.9-11.8) H 11/22/16 14:55 INR 1.13 (0.93-1.08) H 11/22/16 14:55 APTT 33.1 Seconds (23.7-30.8) H 11/22/16 14:55 Attending/Attestation - Attestation I have personally seen and examined this patient.: Yes I have fully participated in the care of the patient.: Yes I have reviewed all pertinent clinical information, including history, physical exam and plan: Yes Notes (Text): Patient seen and examined with GI fellow. Agree with his note as documented above with the following additions/exceptions. This is a 21 yo male with PMHx significant for fistulizing Crohn's disease not currently on therapy who presented to the ED with complaint of abdominal pain and purulent abdominal wounds. CT with PO/IV contrast with small abscesses, possible enterocutaneous fistula. IR/surgery following, no drainable collection. Continue antibiotic therapy. Patient is tolerating diet without nausea or vomiting. Pain control as needed, antiemetic therapy as needed. He will likely require biologic therapy for penetrating Crohn's disease, but will need to maintain good outpatient follow up. 11/24/16 15:34
== END 2016-11-24 15:26 | disposition home or self-care (01) | DRG 895 ==
LOC: MERGE 10:30 → ED 10:30 → ERH 17:08 → 3RSO 20:32
PROVIDERS: ADMIT Internal Medicine; ATTEND Internal Medicine
DX: K65.1 Peritoneal abscess (principal); K63.2 Fistula of intestine; K68.12 Psoas muscle abscess; K50.90 Crohn's disease, unspecified, without complications; D50.9 Iron deficiency anemia, unspecified; Z87.891 Personal history of nicotine dependence

== ENCOUNTER 2016-11-26 22:21 | Inpatient (IN) | payer MEDICAID ==
[2016-11-26 22:22] VITALS: BMI 17.8
[2016-11-26] MEDS ORDERED: Sodium Chloride 0.9% 1,000 ML IV STA (22:56)
[2016-11-26] MEDS ORDERED: Morphine 2 mg/ml ISec IVP STA (22:58)
--- NOTE | 2016-11-26 22:59 | ED PDOC ---
Arrival/HPI - General Historian: Patient - History of Present Illness Time/Duration: Other (see HPI) Context: Home <Devendra Pepe - Last Filed: 11/26/16 23:16> <Kenneth Alvarez - Last Filed: 11/27/16 04:10> - General Chief Complaint: Abdominal Pain Time Seen by Provider: 11/26/16 22:25 - History of Present Illness Narrative History of Present Illness (Text): 11/26/16 22:59 This 21 yo male with pmh crohn's disease, presents to this ED c/o exacerbation of abdominal pain since this morning. Patient stated he was seen in this ED x 5 days ago, and he was admitted for 2 days. Patient was recommended to /u [facility] clinic. He was prescribed Augmentin, and Percocet. He said he is taking his medication but they don't seem to be working. Patient has not made arrangement to f/[facility] clinic, because this hospital is too far for him. ( Devendra Pepe) Past Medical History - Provider Review Nursing Documentation Reviewed: Yes - Infectious Disease Hx of Infectious Diseases: None - Cardiac Hx Cardiac Disorders: No - Pulmonary Hx Respiratory Disorders: No - Neurological Hx Neurological Disorder: No - HEENT Hx HEENT Disorder: No - Renal Hx Renal Disorder: No - Endocrine/Metabolic Hx Endocrine Disorders: No - Hematological/Oncological Hx Blood Disorders: No - Integumentary Hx Dermatological Disorder: No - Musculoskeletal/Rheumatological Hx Musculoskeletal Disorders: No - Gastrointestinal Hx Crohn's Disease: Yes - Genitourinary/Gynecological Hx Genitourinary Disorders: No - Psychiatric Hx Psychophysiologic Disorder: No Hx Substance Use: No - Surgical History Other/Comment: Abd surg. for intraabd. abscesses x 7 [place] [facility] [place] Anesthesia Hx Anesthesia: No Hx Anesthesia Reactions: No Hx Malignant Hyperthermia: No - Suicidal Assessment Feels Threatened In Home Enviroment: No <Devendra Pepe - Last Filed: 11/26/16 23:16> Family/Social History - Physician Review Nursing Documentation Reviewed: Yes Family/Social History: No Known Family HX Smoking Status: Never Smoked Hx Alcohol Use: No Hx Substance Use: No <Devendra Pepe - Last Filed: 11/26/16 23:16> Allergies/Home Meds <Devendra Pepe - Last Filed: 11/26/16 23:16> <Kenneth Alvarez - Last Filed: 11/27/16 04:10> Allergies/Adverse Reactions: Allergies FISH Allergy (Verified 11/13/16 13:50) shellfish derived Adverse Reaction (Verified 11/22/16 10:53) ANGIOEDEMA Review of Systems - Review of Systems Constitutional: Normal. absent: Fatigue, Fevers Eyes: Normal ENT: Normal Respiratory: Normal. absent: SOB Cardiovascular: Normal. absent: Chest Pain, Palpitations Gastrointestinal: Abdominal Pain. absent: Nausea, Vomiting Genitourinary Male: Normal. absent: Dysuria, Frequency, Hematuria Musculoskeletal: Normal Skin: Normal Neurological: Normal. absent: Headache, Focal Weakness, Gait Changes Endocrine: Normal Hemo/Lymphatic: Normal Psychiatric: Normal <Devendra Pepe - Last Filed: 11/26/16 23:16> Physical Exam Temperature: Afebrile Blood Pressure: Normal Pulse: Regular Respiratory Rate: Normal Appearance: Positive for: Well-Appearing, Non-Toxic, Comfortable Pain Distress: None Mental Status: Positive for: Alert and Oriented X 3 - Systems Exam Head: Present: Atraumatic, Normocephalic Pupils: Present: PERRL Extroacular Muscles: Present: EOMI Conjunctiva: Present: Normal Mouth: Present: Moist Mucous Membranes Neck: Present: Normal Range of Motion Respiratory/Chest: Present: Clear to Auscultation, Good Air Exchange. No: Respiratory Distress, Accessory Muscle Use Cardiovascular: Present: Regular Rate and Rhythm, Normal S1, S2. No: Murmurs Abdomen: Present: Tenderness ((+) mild generalized tenderness. No discharge visualized. No ), Normal Bowel Sounds. No: Distention, Peritoneal Signs Back: Present: Normal Inspection Upper Extremity: Present: Normal Inspection, Normal ROM, NORMAL PULSES, Capillary Refill < 2s. No: Cyanosis, Edema Lower Extremity: Present: Normal Inspection, NORMAL PULSES, Normal ROM, Neurovascularly Intact, Capillary Refill < 2 s. No: Edema Neurological: Present: GCS=15, CN II-XII Intact, Speech Normal Skin: Present: Warm, Dry, Normal Color. No: Rashes Psychiatric: Present: Alert, Oriented x 3 <Devendra Pepe - Last Filed: 11/26/16 23:16> Vital Signs Temp Pulse Resp BP Pulse Ox 11/27/16 03:36 97.8 F 88 17 114/57 L 100 11/26/16 22:27 98.5 F 98 H 18 125/64 99 Medical Decision Making <Devendra Pepe - Last Filed: 11/26/16 23:16> <Kenneth Alvarez - Last Filed: 11/27/16 04:10> ED Course and Treatment: 11/27/16 03:[address] Raphael, who is aware and agrees with plan. Accepts pt in to hospitalist service. Pt will go to [facility] observation for abdominal pain, intraabdominal abscesses, and Crohn's disease. certified residential medication aide notified. (Kenneth Alvarez) - Lab Interpretations Lab Results: 11/26/16 23:20 11/26/16 23:20 Lab Results 11/27/16 02:03: Urine Color Yellow, Urine Appearance Clear, Urine pH 7.0, Ur Specific Holden 1.010, Urine Protein 30 H, Urine Glucose (UA) Negative, Urine Ketones Negative, Urine Blood Negative, Urine Nitrate Negative, Urine Bilirubin Negative, Urine Urobilinogen 0.2, Ur Leukocyte Esterase Negative, Urine RBC 0 - 2, Urine WBC 0 - 2, Ur Epithelial Cells 0 - 2, Urine Bacteria Rare 11/26/16 23:20: WBC 6.8 D, RBC 3.56, Hgb 7.6 L, Hct 24.9 L, MCV 69.9 L, MCH 21.3 L, MCHC 30.5 L, RDW 18.8 H, Plt Count 672 H, MPV 8.0, Gran % 65.8, Lymph % (Auto) 20.8 L, Placer % (Auto) 11.2 H, Eos % (Auto) 2.1, Baso % (Auto) 0.1, Gran # 4.45, Lymph # 1.4, Placer # 0.8 H, Eos # 0.1, Baso # 0.01, PT 12.3 H, INR 1.14 H , APTT 33.8 H, Sodium 137, Potassium 3.8, Chloride 95 L, Carbon Dioxide 32, Anion Gap 14, BUN 5 L, Creatinine 0.7, Est GFR ( Amer) > 60, Est GFR (Non -Af Amer) > 60, Random Glucose 84, Calcium 8.5, Total Bilirubin 0.3, AST 60 H, ALT 14, Alkaline Phosphatase 80, Total Protein 7.4, Albumin 3.3, Globulin 4.1, Albumin/Globulin Ratio 0.8 L, Lipase 26 - RAD Interpretation Radiology Orders: 11/26/16 22:56 ABD PELVIS PO & IV CONTRAST [CT] Stat - Medication Orders Current Medication Orders: Piperacillin Sod/Tazobactam Sod (Zosyn 3.375 In Ns 100ml) 100 mls @ 200 mls/hr IV STAT STA PRN Reason: Protocol Stop: 11/27/16 04:33 Metronidazole (Flagyl) 100 mls @ 100 mls/hr IVPB STAT STA PRN Reason: Protocol Stop: 11/27/16 05:04 Discontinued Medications Sodium Chloride (Sodium Chloride 0.9%) 1,000 mls @ 1,000 mls/hr IV .Q1H STA Stop: 11/26/16 23:55 Last Admin: 11/26/16 23:32 Dose: 1,000 MLS/HR eMAR Start Stop Document 11/26/16 23:32 (Rec: 11/26/16 23:33 [facility]) Intravenous Solution Start Date 11/26/16 Start Time 23:32 End Date 11/27/16 End time 00:32 Total Infusion Time 60 Iohexol (Omnipaque 240 (50 Ml)) Confirm Administered Dose 50 ml .ROUTE .STK-MED ONE Stop: 11/26/16 23:20 Iohexol (Omnipaque 350 150 Ml) Confirm Administered Dose 150 ml .ROUTE .STK-MED ONE Stop: 11/27/16 01:19 Iohexol (Omnipaque 350 100 Ml) Confirm Administered Dose 350 mg .ROUTE .STK-MED ONE Stop: 11/27/16 01:20 Morphine Sulfate (Morphine) 2 mg IVP STAT STA Stop: 11/26/16 22:59 Last Admin: 11/26/16 23:33 Dose: 2 MG MAR Pain Assessment Document 11/26/16 23:33 (Rec: 11/26/16 23:33 [facility]) Pain Reassessment Is this a pain reassessment? No Sleep Is patient sleeping during reassessment? No Presence of Pain Presence of Pain Yes Pain Scale Used Pain Scale Used Numeric Location Left, Right or Bilateral Right Upper or Lower Lower Pain Location Body Site Abdomen Back Description Description Stabbing Intensity of Pain at present 10 Pain Behavior Withdrawal from Touch Rubbing Site Facial Grimacing Aggravating Factors ADL's Changing Position Sitting Walking Alleviating Factors/Management Medication Techniques Alleviating Factors Medication IVP Administration Document 11/26/16 23:33 MR (Rec: 11/26/16 23:33 [facility] [place]) Charges for Administration # of IVP Administrations 1 Morphine Sulfate (Morphine) 2 mg IVP STAT STA Stop: 11/27/16 02:17 Last Admin: 11/27/16 02:43 Dose: 2 MG MAR Pain Assessment Document 11/27/16 02:43 MR (Rec: 11/27/16 02:43 [facility] [place]) Pain Reassessment Is this a pain reassessment? Yes Sleep Is patient sleeping during reassessment? No Presence of Pain Presence of Pain Yes Pain Scale Used Pain Scale Used Numeric Location Left, Right or Bilateral Right Upper or Lower Lower Pain Location Body Site Back Description Description Sharp Intensity of Pain at present 9 Pain Behavior Facial Grimacing Alleviating Factors/Management Medication Techniques Alleviating Factors Medication IVP Administration Document 11/27/16 02:43 MR (Rec: 11/27/16 02:43 [facility] [place]) Charges for Administration # of IVP Administrations 1 - PA / [employer] / Resident Statement / has reviewed & agrees with the documentation as recorded. / has examined the patient and agrees with the treatment plan. <Kenneth Alvarez - Last Filed: 11/27/16 04:10> Disposition/Present on Arrival - Present on Arrival History of DVT/PE: No History of Uncontrolled Diabetes: No Urinary Catheter: No History of Decub. Ulcer: No History Surgical Site Infection Following: None <Devendra Pepe - Last Filed: 11/26/16 23:16> - Present on Arrival Any Indicators Present on Arrival: No History of DVT/PE: No History of Uncontrolled Diabetes: No Urinary Catheter: No History of Decub. Ulcer: No History Surgical Site Infection Following: None - Disposition Have Diagnosis and Disposition been Completed?: Yes Disposition Time: 04:08 Patient Plan: Observation <Kenneth Alvarez - Last Filed: 11/27/16 04:10> - Disposition Diagnosis: Intra-abdominal abscess, Crohn's disease, Abdominal pain Disposition: HOSPITALIZED Patient Problems: Current Active Problems Problem Status Diagnosed Abdominal pain Acute Crohn's disease Acute Intra-abdominal abscess Acute Referrals: PCP,NO [Primary Care Provider] - Follow up with primary
[2016-11-26] MEDS ORDERED: Iohexol 240 (50 ml) ONE (23:19)
[2016-11-26 23:36] LABS: ADD MANUAL DIFF? NO
[2016-11-26 23:48] LABS: BASO # 0.01 K/mm3 (0.0-2.0); BASO % 0.1 % (0.0-3.0); EOS # 0.1 (0.0-0.7); EOS % 2.1 % (1.5-5.0); GRAN # 4.45 (1.4-6.5); GRAN % 65.8 % (50.0-68.0); HEMATOCRIT 24.9 % (42.0-52.0); LYMPH # 1.4 (1.2-3.4); LYMPH % 20.8 % (22.0-35.0); MEAN CELL VOLUME 69.9 fL (80.0-105.0); MEAN CORPUSCULAR HEMOGLOBIN 21.3 pg (25.0-35.0); MEAN CORPUSCULAR HGB CONC 30.5 g/dl (31.0-37.0); MONO # 0.8 (0.1-0.6); MONO % 11.2 % (1.0-6.0); PLATELET COUNT 672 10^3/uL (120.0-450.0); RED CELL DISTRIBUTION WIDTH 18.8 % (11.5-14.5); WHITE BLOOD COUNT 6.8 10^3/ul (4.5-11.0)
[2016-11-26 23:52] LABS: ALB/GLOB RATIO 0.8 (1.1-1.8); ALKALINE PHOSPHATASE 80 U/L (38-133); ALT/SGPT 14 U/L (7-56); AST/SGOT 60 U/L (15-59); BILIRUBIN,TOTAL 0.3 mg/dL (0.2-1.3); BLOOD UREA NITROGEN 5 mg/dL (7-21); CALCIUM 8.5 mg/dL (8.4-10.5); CARBON DIOXIDE 32 mmol/L (21-33); CHLORIDE 95 mmol/L (98-107); GFR AFRICAN-AMERICAN > 60; GLUCOSE,RANDOM 84 mg/dL (70-110); LIPASE 26 U/L (23-300); POTASSIUM 3.8 mmol/L (3.6-5.0); SODIUM 137 mmol/L (132-148); TOTAL PROTEIN 7.4 g/dL (5.8-8.3)
[2016-11-26 23:58] LABS: INR 1.14 (0.93-1.08); PARTIAL THROMBOPLASTIN TIME 33.8 Seconds (23.7-30.8)
[2016-11-27] MEDS ORDERED: Iohexol 350 MG/100 ML VIAL ONE (01:19)
[2016-11-27] MEDS ORDERED: Morphine 2 mg/ml ISec IVP STA (02:16)
[2016-11-27 02:55] LABS: URINE BILIRUBIN NEGATIVE (NEGATIVE); URINE BLOOD NEGATIVE (NEGATIVE); URINE GLUCOSE (UA) NEGATIVE (NEGATIVE); URINE KETONE NEGATIVE (NEGATIVE); URINE LEUKOCYTE ESTERASE NEGATIVE Leu/uL (NEGATIVE); URINE PROTEIN 30 mg/dL (<30 mg/dL); URINE UROBILINOGEN 0.2 E.U./dL (<1 E.U./dL)
[2016-11-27 03:01] LABS: URINE APPEARANCE CLEAR (CLEAR); URINE COLOR YELLOW (YELLOW)
[2016-11-27 03:09] LABS: URINE BACTERIA RARE (NEG); URINE EPITHELIAL CELLS 0 - 2 /hpf (0-5); URINE RBC 0 - 2 /hpf (0-2); URINE WBC 0 - 2 /hpf (0-6)
--- NOTE | 2016-11-27 03:34 | CT ---
EXAM: CT Abdomen and Pelvis With Intravenous Contrast. CLINICAL HISTORY: 21 years old, male; Pain; Abdominal pain; Generalized; Prior surgery; Surgery type: Surgery for crohns disease; Additional info: Diffused abdominal pain TECHNIQUE: Axial computed tomography images of the abdomen and pelvis with intravenous contrast. This CT exam was performed using one or more of the following dose reduction techniques: automated exposure control, adjustment of the mA and/or kV according to patient size, and/or use of iterative reconstruction technique. Coronal and sagittal reformatted images were created and reviewed. CONTRAST: 100 mL of omni 350 administered intravenously. EXAM DATE/TIME: Exam ordered 11/26/2016 10:56 PM COMPARISON: CT - ABD PELVIS PO IV CONTRAST 11/23/2016 2:35:57 PM FINDINGS: Lower thorax: No acute findings. ABDOMEN: Liver: Unremarkable. No mass. Gallbladder and bile ducts: Gallbladder is collapsed. No biliary dilatation seen. No calcified stones. Pancreas: Unremarkable. No mass. No ductal dilation. Spleen: Redemonstration of small hypoattenuating finding in the spleen, not fully characterized. Adrenals: Unremarkable. No mass. Kidneys and ureters: Unremarkable. No solid mass. No hydronephrosis. Stomach and bowel: There is redemonstration of a bowel anastomosis. There is no finding to suggest bowel obstruction. There is no specific finding of bowel perforation. There is diffuse thickening of the colon from the distal sigmoid to the rectum, this could be related to Crohn's flare versus inflammatory change secondary to the other abdominal pathology, and other such as antibiotic associated colitis also in the differential. Appendix: No findings to suggest acute appendicitis. PELVIS: Bladder: Bladder is partly collapsed limiting evaluation, favor wall is thick, correlate for infection. Reproductive: Unremarkable as visualized. ABDOMEN and PELVIS: Intraperitoneal space: There is no definite free intraperitoneal air and no evidence to suggest intraperitoneal contrast. There is redemonstration of free fluid in the right paracolic gutter, and inseparable from the phlegmon and fluid associated with the right psoas and right lateral abdominal wall. Bones/joints: No acute fracture. No dislocation. Soft tissues: Series 2 image [id number], in the right lower abdomen, new dots of air are seen in the fluid between the layers of the abdominal wall musculature. The posterior right subcutaneous tissues show fluid tracking to the skin surface series 2 image 150, less well defined than previously, again associated with fluid tracking deeper / laterally as well as deeper and medial but without a definite enhancing rim. Please note that because of poor enhancement it is believed that this does not exclude a drainable component particularly in the posterior off midline on the right. [id number], [id number], new dots of air within right psoas where there was a previous microabscess. Favor that there is interval increase in edema of the right posterior paraspinous muscles, noting that tissue contrast is somewhat less clear on the present study than on the previous study. Vasculature: The portal venous system is noted patent, there is no evidence to suggest portal vein thrombosis complicating the present pathology. No abdominal aortic aneurysm. Lymph nodes: Enlarged right inguinal and right external iliac nodes are favored to be reactive. Clarification after the present acute process is resolved is recommended. Other findings: As described previously, there is not definitive extension into the spinal canal, noting that this study is not optimal for that purpose. IMPRESSION: Redemonstration of previous extensive abnormalities in the pelvis, with pelvic ascites presumed infected, phlegmon and microabscesses in the right pelvis, psoas and right paraspinous muscles, and both anterior and posterior subcutaneous tissues, with apparent skin fistulization. There are new dots of air as described within previously seen abscesses. Noted that although there is not a discrete rim-enhancing collection, contrast opacification is suboptimal, and drainable collections particularly where there is now air, and in the right anterior abdominal wall, not excluded. New colonic wall thickening, differential as above. New bladder wall thickening, consider infection.
[2016-11-27] MEDS ORDERED: Piperacillin/Tazobact 3.375 gm 100 ML IV STA (04:04)
[2016-11-27] MEDS ORDERED: metroNIDAZOLE IV 500 mg/100 ml 100 ML IVPB STA (04:05)
--- NOTE | 2016-11-27 05:12 | CP.PCM.HP ---
<Dar Vaughn - Last Filed: 11/27/16 04:48> History of Present Illness - History of Present Illness History of Present Illness: CC: Abdominal pain HPI: This is a 21 yo AA M with PMH of Crohn's, Iron-deficiency anemia, and possible drug-seeking behavior who presents with complaint of lower abdominal pain and multiple draining abscesses on abdomen and back. Patient reports that the abdominal pain acutely worsened today, and he feels that the medications he was given after his recent discharge from [facility] (on 11/24/16, Augmentin and Percocet) are not helping. He was instructed to follow at [facility] after last admission, but admits he has not done so because he has not been able to arrange for transportation there. He also states that if he represented to [facility] , he would be able to have his abscesses drained, but review of Surgery's and IR 's notes at the time do not mention this. Patient reports 1x episode of NBNB emesis 1 day prior, but remains able to tolerate PO intake since that time. Complains of abdominal pain diffusely and at site of his two draining abscesses , as well as at site on draining abscess on the back. Denies bloody drainage, chest pain, shortness of breath, dizziness/lightheadedness/vertiginous sx. Admits to chronic watery diarrhea, denies any bloody diarrhea. PMH: as above PSH: 2 abdominal surgeries and 1 IR Incision and Drainage for abdominal abscesses FH: HTN, Arthritis SH: lives with family, disabled/not working Admits former cigarette use, (1/4 ppd x 2 years, quit 2 years prior), denies EtOH/Illicits Present on Admission - Present on Admission Any Indicators Present on Admission: No History of DVT/PE: No History of Uncontrolled Diabetes: No Urinary Catheter: No Review of Systems - Constitutional Constitutional: Chills, Fever (subjective, never measured), Malaise. absent: Weakness - EENT Eyes: absent: Blurred Vision, Change in Vision, Loss of Vision Ears: absent: Dizziness Nose/Mouth/Throat: absent: Dysphagia, Neck Pain - Cardiovascular Cardiovascular: absent: Chest Pain, Dyspnea, Pain Radiating to Arm/Neck/Jaw, Lightheadedness, Palpitations, Rapid Heart Rate, Syncope - Respiratory Respiratory: absent: Cough, Dyspnea, Hemoptysis - Gastrointestinal Gastrointestinal: Abdominal Pain (diffuse, worse at sites of drainage), Diarrhea (watery, denies bloody), Vomiting (1x episode 1 day prior, NBNB). absent: Constipation, Dysphagia, Nausea - Genitourinary Genitourinary: Dysuria. absent: Difficulty Urinating, Flank Pain, Hematuria - Musculoskeletal Musculoskeletal: Back Pain (at site of drainage). absent: Muscle Weakness, Neck Pain, Numbness, Radiating Pain into Limb - Integumentary Integumentary: absent: Pruritus, Rash Additional comments: multiple draining abscess, non-bloody drainage, sites acutely painful, 2 on abd and 1 on back - Neurological Neurological: absent: Dizziness, Numbness, Focal Weakness, Loss of Vision, Syncope, Vertigo, Weakness, Other Visual Disturbances - Psychiatric Psychiatric: absent: Anxiety - Endocrine Endocrine: absent: Fatigue, Palpitations Past Patient History - Infectious Disease Hx of Infectious Diseases: None - Past Social History Smoking Status: Never Smoked - CARDIAC Hx Cardiac Disorders: No - PULMONARY Hx Respiratory Disorders: No - NEUROLOGICAL Hx Neurological Disorder: No - HEENT Hx HEENT Problems: No - RENAL Hx Chronic Kidney Disease: No - ENDOCRINE/METABOLIC Hx Endocrine Disorders: No - HEMATOLOGICAL/ONCOLOGICAL Hx Blood Disorders: No - INTEGUMENTARY Hx Dermatological Problems: No - MUSCULOSKELETAL/RHEUMATOLOGICAL Hx Musculoskeletal Disorders: No - GASTROINTESTINAL Hx Crohn's Disease: Yes - GENITOURINARY/GYNECOLOGICAL Hx Genitourinary Disorders: No - PSYCHIATRIC Hx Psychophysiologic Disorder: No Hx Substance Use: No - SURGICAL HISTORY Other/Comment: Abd surg. for intraabd. abscesses x 7 last surgery 10/2016 at [facility] - ANESTHESIA Hx Anesthesia: No Hx Anesthesia Reactions: No Hx Malignant Hyperthermia: No Meds Allergies/Adverse Reactions: Allergies Allergy/AdvReac Type Severity Reaction Status Date / Time FISH Allergy Verified 11/13/16 13:50 shellfish derived AdvReac ANGIOEDEMA Verified 11/22/16 10:53 Physical Exam - Constitutional Appears: Non-toxic, No Acute Distress, Chronically Ill - Head Exam Head Exam: ATRAUMATIC, NORMAL INSPECTION, NORMOCEPHALIC - Eye Exam Eye Exam: EOMI, Normal appearance. absent: Conjunctival injection, Scleral icterus Pupil Exam: absent: Irregular, Unequal - ENT Exam ENT Exam: Mucous Membranes Moist - Neck Exam Neck exam: Positive for: Full Rom - Respiratory Exam Respiratory Exam: Clear to Auscultation Bilateral, NORMAL BREATHING PATTERN. absent: Accessory Muscle Use, Chest Wall Tenderness, Decreased Breath Sounds, Rales, Rhonchi, Wheezes - Cardiovascular Exam Cardiovascular Exam: REGULAR RHYTHM, RRR, +S1, +S2. absent: Bradycardia, Tachycardia, Clicks, Diastolic murmur, Irregular Rhythm, +S4, Systolic Murmur - GI/Abdominal Exam GI & Abdominal Exam: Diminished Bowel Sounds, Soft (except at sites of drainage , as detailed in integumentary exam). absent: Hyperactive Bowel Sounds, Hypoactive Bowel Sounds, Normal Bowel Sounds Additional comments: surgical scar running laterally 4-5cm, terminating at umbilicus - Rectal Exam Rectal Exam: NORMAL INSPECTION Additional comments: no external hemorrhoids visualized, no active bloody or pus discharge from anus , no visible fissure - Extremities Exam Extremities exam: Positive for: normal inspection, pedal pulses present. Negative for: calf tenderness, pedal edema, tenderness - Back Exam Back exam: absent: CVA tenderness (L), CVA tenderness (R) Additional comments: site of drainage along right lateral mid-back, as described in integumentary exam - Neurological Exam Neurological exam: Alert, Oriented x3 Additional comments: moving extremities spontaneously, able to follow all commands - Psychiatric Exam Psychiatric exam: Anxious, Normal Affect - Skin Additional comments: 3x draining abscesses 1) Right lateral mid back, clear drainage, drainage site ~1cm in circumference with 2-3 cm circumeference of induration surrounding, acutely tender to touch 2) Right abd, 4-5cm lateral to umbilicus, clear drainage, drainage site ~2cm in circumference with 4-5 cm circumeference of induration surrounding, acutely tender to touch 3) Right groin, 2-3 cm above and lateral to genital region, clear/whitish discharge, ~1cm in circumference with 1-2 cm circumeference of induration surrounding, acutely tender to touch Results - Vital Signs Recent Vital Signs: Last Vital Signs Temp 97.8 F 11/27/16 03:36 Pulse 88 11/27/16 03:36 Resp 17 11/27/16 03:36 BP 114/57 L 11/27/16 03:36 Pulse Ox 100 11/27/16 03:36 - Labs Result Diagrams: 11/26/16 23:20 11/26/16 23:20 Assessment & Plan - Assessment and Plan (Free Text) Assessment: This is a 21 yo AA M with PMH of Crohn's, Iron-deficiency anemia, and possible drug-seeking behavior who presents with complaint of lower abdominal pain and multiple draining abscesses on abdomen and back. He is presenting for worsening abdominal pain and pain with urination. Plan: 1) Worsening abdominal pain -Untreated Crohn's with Abscesses/fistula vs UTI, may be both -Surgery and GI consulted, appreciate any recs -CT abd/pelvis notes new colonic wall thickening and bladder wall thickening -Covering for abdominal infxns and UTI with IV rocephin and flagyl, got 1x Zosyn in ED -UA not indicative of UTI, but given untreated Crohns, risk for possible fistula to bladder -NPO, IVF NS 150cc/hr -Pain control with Morphine IV q4 PRN -Was previously instructed to follow up at [facility], has not done so 2) Anemia -Iron deficiency likely 2/2 Crohn's, vs bleeding lesions 2/2 crohn's -Iron, Ferritin, TIBC ordered, Folate ordered -Type and screen ordered 3) Draining abscesses -likely 2/2 Crohns, non-compliance with follow up -Wound cultures ordered -Surgery consulted, appreciate any recs Dispo: Med/Surg obs, pending GI and Surgery's input FEN: NPO, NS IVF 150cc/hr Access: Peripheral IV Consults: GI, Surgery Ppx: Protonix for GI, SCDs for DVT Patient reviewed and discussed with attending, Dr. Raphael. - Date & Time Date: 11/27/16 Time: 05:34 Decision To Admit - Pt Status Changed To: Hospital Disposition Of: Observation - . Bed Request Type: Med/Surg <Linh Raphael - Last Filed: 11/27/16 21:00> Results - Vital Signs Recent Vital Signs: Last Vital Signs Temp 98.6 F 11/27/16 16:48 Pulse 88 11/27/16 16:48 Resp 18 11/27/16 16:48 BP 103/60 11/27/16 16:48 Pulse Ox 100 11/27/16 16:48 - Labs Result Diagrams: 11/27/16 07:30 11/27/16 07:30 Labs: Laboratory Results - last 24 hr 11/27/16 11/27/16 05:30 07:30 WBC 5.8 RBC 3.59 Hgb 7.6 L Hct 24.9 L MCV 69.4 L MCH 21.2 L MCHC 30.5 L RDW 19.0 H Plt Count 645 H MPV 7.8 Gran % 66.6 Lymph % (Auto) 20.5 L [place] % (Auto) 9.9 H Eos % (Auto) 2.8 Baso % (Auto) 0.2 Gran # 3.84 Lymph # 1.2 [place] # 0.6 Eos # 0.2 Baso # 0.01 Sodium 136 Potassium 4.0 Chloride 101 Carbon Dioxide 26 Anion Gap 13 BUN 3 L Creatinine 0.7 Est GFR ( Amer) > 60 Est GFR (Non-Af Amer) > 60 Random Glucose 87 Calcium 8.2 L Phosphorus 3.7 Magnesium 2.0 Iron 13 L TIBC 223 L % Saturation 6 L Ferritin 140.0 Total Bilirubin 0.3 AST 45 ALT 19 Alkaline Phosphatase 85 Total Protein 6.9 Albumin 3.0 Globulin 3.9 Albumin/Globulin Ratio 0.8 L Folate 17.5 Blood Type A POSITIVE Antibody Screen Negative BBK History Checked Patient has bt Attending/Attestation - Attestation I have personally seen and examined this patient.: Yes I have fully participated in the care of the patient.: Yes I have reviewed all pertinent clinical information: Yes Notes (Text): 11/27/16 20:59 Agree with history, physical examination, assessment and plan. Patient was seen when he was in the ER.
[2016-11-27] MEDS ORDERED: Sodium Chloride 0.9% 1,000 ML IV SCH (05:45)
[2016-11-27] MEDS: Morphine 2 mg/ml ISec IVP PRN ×2 (07:25→11:27)
[2016-11-27 08:03] LABS: ADD MANUAL DIFF? NO
[2016-11-27 08:07] LABS: BASO # 0.01 K/mm3 (0.0-2.0); BASO % 0.2 % (0.0-3.0); EOS # 0.2 (0.0-0.7); EOS % 2.8 % (1.5-5.0); GRAN # 3.84 (1.4-6.5); GRAN % 66.6 % (50.0-68.0); HEMATOCRIT 24.9 % (42.0-52.0); LYMPH # 1.2 (1.2-3.4); LYMPH % 20.5 % (22.0-35.0); MEAN CELL VOLUME 69.4 fL (80.0-105.0); MEAN CORPUSCULAR HEMOGLOBIN 21.2 pg (25.0-35.0); MEAN CORPUSCULAR HGB CONC 30.5 g/dl (31.0-37.0); MEAN PLATELET VOLUME 7.8 fl (7.0-11.0); MONO # 0.6 (0.1-0.6); MONO % 9.9 % (1.0-6.0); PLATELET COUNT 645 10^3/uL (120.0-450.0); WHITE BLOOD COUNT 5.8 10^3/ul (4.5-11.0)
[2016-11-27 08:26] LABS: ALB/GLOB RATIO 0.8 (1.1-1.8); ALKALINE PHOSPHATASE 85 U/L (38-133); ALT/SGPT 19 U/L (7-56); AST/SGOT 45 U/L (15-59); BILIRUBIN,TOTAL 0.3 mg/dL (0.2-1.3); BLOOD UREA NITROGEN 3 mg/dL (7-21); CALCIUM 8.2 mg/dL (8.4-10.5); CARBON DIOXIDE 26 mmol/L (21-33); CHLORIDE 101 mmol/L (98-107); GFR AFRICAN-AMERICAN > 60; GLUCOSE,RANDOM 87 mg/dL (70-110); PHOSPHOROUS 3.7 mg/dL (2.5-4.5); SODIUM 136 mmol/L (132-148); TOTAL PROTEIN 6.9 g/dL (5.8-8.3)
[2016-11-27] MEDS: Sodium Chloride 0.9% 1,000 ML IV SCH (09:24)
[2016-11-27 09:44] LABS: IRON 13 ug/dL (45-180)
[2016-11-27] MEDS ORDERED: Linezolid 600 mg in D5W 300 ml 300 ML IVPB SCH (10:00)
[2016-11-27 11:04] LABS: FOLATE 17.5 ng/mL
--- NOTE | 2016-11-27 11:36 | CON ---
DATE: 11/27/2016 The patient is seen earlier today in room 570, bed 2. CHIEF COMPLAINT: Abdominal pain times several days. HISTORY OF PRESENT ILLNESS: This is a 21-year-old male with past medical history significant for Waist Presser hn's disease. The patient was generally followed at [facility] in [place] and the patient wa s also seen in [facility] for multiple admissions and patient also had been going to [facility] for multiple admissions and has had multiple abdominal surgeries for his Crohn's dise ase and has had multiple intra-abdominal abscesses, mostly followed at [facility]. H e states he was unhappy with the care and the amount of pain medications he was receiving and therefo re he has come to the Emergency Room and [facility] seeking further care for his Crohn's disease or abdominal pain. In the Emergency Room, the patient said that his abdominal pain had been worse, it is diffuse in nature. He has not had any nausea or vomiting, no fevers or chills and no ch est pain. No diarrhea or constipation, it is new. PAST MEDICAL HISTORY: Significant for Crohn's disease, iron deficiency anemia. PAST SURGICAL HISTORY: Significant for multiple abdominal surgeries. ALLERGIES: FISH, AND SHELLFISH. MEDICATIONS AT HOME: Include oxycodone, naproxen and patient was on Augmentin. PHYSICAL EXAMINATION: GENERAL: He is in bed, appearing chronically ill, cachectic. VITAL SIGNS: Temperature of 98, heart rate of also 92-98, respiratory rate of 18-20, blood pressure is 114/50. HEENT: Unremarkable. NECK: Supple. LUNGS: Have decreased breath sounds. HEART: Normal S1, S2. ABDOMEN: Soft, nontender. No rebound, no guarding. There is diffuse mild tenderness, but not on de ep palpation. LABORATORY EXAMINATION: Reveals a white count of 6.8, hemoglobin of 7.6, platelets of 672. Coagulat ion is noted. Chemistries reveal a BUN of 5, creatinine of 0.7. Urinalysis reveals unremarkable. The Emergency Room chart is reviewed. Dr. Cutler ____history and physical examination is also reviewed . The patient had a CAT scan of the abdomen and pelvis which revealed pelvic ascites, presumed infec laure phlegmon microabscesses and right pelvis psoas in the right paraspinous muscles in both anterior and posterior subcutaneous tissue, fistula formation and new colonic wall thickening and new bladder wall thickening. Review of the orders reveals the patient's blood cultures have been ordered, wound culture has been o rdered, not collected. The patient is on Flagyl and ceftriaxone. The patient was given a dose of Zy vox and a dose of Zosyn. ASSESSMENT AND PLAN: This is a 21-year-old with iron deficiency anemia and Crohn's disease, now pres enting with abdominal pain with Crohn's disease with fistula and possible intra-abdominal abscesses. GI consultation, surgical consultation. We will start the patient on IV Zosyn and p.o.. And furthe r recommendations pending GI and surgical consultation regarding patient's care. We will follow with you. Jesse Wang MD cc: [id number] TT: 11/27/2016 11:35:20 Confirmation # [id number] Dictation # [id number] [email or web address]
[2016-11-27] MEDS: Piperacillin/Tazobact 3.375 gm 100 ML IVPB SCH ×3 (12:02→23:55)
--- NOTE | 2016-11-27 13:44 | CP.PCM.CON ---
<Dar Stokes - Last Filed: 11/27/16 13:46> History of Present Illness - History of Present Illness History of Present Illness: PGY4 GI Fellow Consult Note Patient is a 21yo male with PMHx significant for Crohn's disease, diagnosed in 2014, not currently on therapy who presented to the ED with complaint of abdominal pain and purulent abdominal wounds. The patient has an extensive history of abdominal surgeries for fistulas/abscesses related to his long standing CD with most interventions performed at [facility]. He is a poor historian and cannot recall his last endoscopy, believing it to have been ~8 months ago and cannot state what medications he was previously on (Remicade infusions). Patient has been nonadherent to therapy and currently does not follow with a GI physician. More concerning is his avidity for narcotic medications and frequent ER visits requesting prescription narcotics with history of early refills when looking in the [place] Rx registry. The patient was recently admitted to our facility for identical complaints pertaining to abdominal cramping pain and abdominal wound drainage and was subsequently discharged with instructions to follow up at [facility] for ongoing care given the complicated nature of his disease. He was given prescription for Augmentin and narcotic pain medications at time of D/C and states he has run out of them. He admits to right flank and back pain along with persistent drainage from abdominal wounds/fistulas. He has not followed up with any physicians in the interim. Of note, culture of his abdominal wound did reveal VRE. At present, he is requesting more pain medication and a regular diet order. PMHx: See HPI PSHx: 7+ procedures for abscess/fistula formation, ? bowel resection (noted on CT but denied by patient) FHx: Mother - OA, Father - HTN Social: Denies tobacco, EtOH or illicit drug use Endo: Unclear, admits to possibly having had colonoscopy 8 months ago Review of Systems - Constitutional Constitutional: Fatigue, Malaise. absent: Anorexia, Chills, Fever, Weight Loss - EENT Eyes: absent: Change in Vision Nose/Mouth/Throat: absent: Sore Throat - Cardiovascular Cardiovascular: absent: Chest Pain, Dyspnea, Dyspnea on Exertion - Respiratory Respiratory: absent: Cough, Dyspnea, Excessive Mucous Production - Gastrointestinal Gastrointestinal: Abdominal Pain, Bloating, Cramping. absent: Constipation, Diarrhea, Dyspepsia, Dysphagia, Hematemesis, Hematochezia, Melena, Nausea, Vomiting - Genitourinary Genitourinary: absent: Dysuria, Urinary Frequency, Urinary Urgency - Integumentary Integumentary: absent: New Lesions, Rash - Neurological Neurological: absent: Dizziness, Numbness, Focal Weakness - Psychiatric Psychiatric: absent: Anxiety, Depression - Endocrine Endocrine: absent: Polydipsia, Polyphagia, Polyuria - Hematologic/Lymphatic Hematologic: absent: Easy Bleeding, Easy Bruising, Lymphadenopathy Past Patient History - Infectious Disease Hx of Infectious Diseases: None - Past Social History Smoking Status: Never Smoked - CARDIAC Hx Cardiac Disorders: No Hx Peripheral Vascular Disease: No - PULMONARY Hx Respiratory Disorders: No Hx Tuberculosis: No - NEUROLOGICAL Hx Neurological Disorder: No Hx Transient Ischemic Attacks (TIA): No - HEENT Hx HEENT Problems: No Hx Macular Degeneration: No - RENAL Hx Chronic Kidney Disease: No Hx Renal Failure: No - ENDOCRINE/METABOLIC Hx Endocrine Disorders: No Hx Systemic Lupus Erythematosus: No - HEMATOLOGICAL/ONCOLOGICAL Hx Blood Disorders: No Hx Unexplained Bleeding: No - INTEGUMENTARY Hx Dermatological Problems: No Hx Squamous Cell: No - MUSCULOSKELETAL/RHEUMATOLOGICAL Hx Musculoskeletal Disorders: No Hx Falls: No Hx Unsteady Gait: No - GASTROINTESTINAL Hx Crohn's Disease: Yes - GENITOURINARY/GYNECOLOGICAL Hx Genitourinary Disorders: No Hx Urinary Tract Infection: No - PSYCHIATRIC Hx Psychophysiologic Disorder: No Hx Sexual Abuse: No - SURGICAL HISTORY Hx Surgeries: Yes (abscess drain) - ANESTHESIA Hx Anesthesia: No Hx Anesthesia Reactions: No Hx Malignant Hyperthermia: No Meds Allergies/Adverse Reactions: Allergies Allergy/AdvReac Type Severity Reaction Status Date / Time FISH Allergy Verified 11/13/16 13:50 shellfish derived AdvReac ANGIOEDEMA Verified 11/22/16 10:53 - Medications Medications: Current Medications Sodium Chloride (Sodium Chloride 0.9%) 1,000 mls @ 100 mls/hr IV .Q10H [facility] Last Admin: 11/27/16 09:24 Dose: 100 mls/hr Piperacillin Sod/Tazobactam Sod (Zosyn 3.375 In Ns 100ml) 100 mls @ 200 mls/hr IVPB Q6 [facility] PRN Reason: Protocol Stop: 12/11/16 12:01 Last Admin: 11/27/16 12:02 Dose: 200 mls/hr Metronidazole (Flagyl) 500 mg PO Q8 [facility] PRN Reason: Protocol Stop: 12/11/16 14:01 Last Admin: 11/27/16 13:17 Dose: 500 mg Morphine Sulfate (Morphine) 2 mg IVP Q4H PRN PRN Reason: Pain, severe (8-10) Last Admin: 11/27/16 11:27 Dose: 2 mg Pantoprazole Sodium (Protonix Inj) 40 mg IVP Q12 [facility] Last Admin: 11/27/16 09:28 Dose: 40 mg Physical Exam - Constitutional Appears: Non-toxic, No Acute Distress - Eye Exam Eye Exam: EOMI, PERRL - ENT Exam ENT Exam: Mucous Membranes Moist - Respiratory Exam Respiratory Exam: Clear to Auscultation Bilateral. absent: Rales, Rhonchi, Wheezes - Cardiovascular Exam Cardiovascular Exam: RRR, +S1, +S2 - GI/Abdominal Exam GI & Abdominal Exam: Normal Bowel Sounds, Soft, Tenderness (RLQ, RUQ). absent: Distended, Firm, Guarding, Rigid Additional comments: draining lesions on abdominal wall - Extremities Exam Extremities exam: Positive for: normal inspection. Negative for: pedal edema - Neurological Exam Neurological exam: Alert, Oriented x3 - Psychiatric Exam Psychiatric exam: Normal Affect, Normal Mood - Skin Skin Exam: Dry, Warm Results - Vital Signs Recent Vital Signs: Last Vital Signs Temp 98.5 F 11/27/16 07:49 Pulse 92 H 11/27/16 07:49 Resp 17 11/27/16 13:29 BP 110/63 11/27/16 07:49 Pulse Ox 100 11/27/16 07:49 - Labs Result Diagrams: 11/27/16 07:30 11/27/16 07:30 Labs: Laboratory Results - last 24 hr 11/27/16 11/27/16 05:30 07:30 WBC 5.8 RBC 3.59 Hgb 7.6 L Hct 24.9 L MCV 69.4 L MCH 21.2 L MCHC 30.5 L RDW 19.0 H Plt Count 645 H MPV 7.8 Gran % 66.6 Lymph % (Auto) 20.5 L Miller % (Auto) 9.9 H Eos % (Auto) 2.8 Baso % (Auto) 0.2 Gran # 3.84 Lymph # 1.2 Miller # 0.6 Eos # 0.2 Baso # 0.01 Sodium 136 Potassium 4.0 Chloride 101 Carbon Dioxide 26 Anion Gap 13 BUN 3 L Creatinine 0.7 Est GFR ( Amer) > 60 Est GFR (Non-Af Amer) > 60 Random Glucose 87 Calcium 8.2 L Phosphorus 3.7 Magnesium 2.0 Iron 13 L TIBC 223 L % Saturation 6 L Ferritin 140.0 Total Bilirubin 0.3 AST 45 ALT 19 Alkaline Phosphatase 85 Total Protein 6.9 Albumin 3.0 Globulin 3.9 Albumin/Globulin Ratio 0.8 L Folate 17.5 Blood Type A POSITIVE Antibody Screen Negative BBK History Checked Patient has bt Assessment & Plan - Assessment and Plan (Free Text) Assessment: Patient is a 21yo male with PMHx significant for Crohn's disease, diagnosed in 2014, not currently on therapy who presented to the ED with complaint of abdominal pain and purulent abdominal wounds. 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 -Pelvic fluid collection, concern for abscess -Cheilitis Plan: -CT repeated on admission, results noted -ID following, apreciate antibiotic recommendations in setting of recent VRE+ culture -Cannot initiate steroid therapy given ongoing infections; would not heal fistulous disease -Patient has been nonadherent to outpatient TNFa therapy which has been shown to improve fistulous CD -Recommend re-evaluation by surgery and IR -No plan for endoscopic intervention at this time -Will follow - Date & Time Date: 11/27/16 Time: 07:30 <Shilpa Hamlin - Last Filed: 11/27/16 14:35> Meds - Medications Medications: Current Medications Sodium Chloride (Sodium Chloride 0.9%) 1,000 mls @ 100 mls/hr IV .Q10H [facility] Last Admin: 11/27/16 09:24 Dose: 100 mls/hr Piperacillin Sod/Tazobactam Sod (Zosyn 3.375 In Ns 100ml) 100 mls @ 200 mls/hr IVPB Q6 [facility] PRN Reason: Protocol Stop: 12/11/16 12:01 Last Admin: 11/27/16 12:02 Dose: 200 mls/hr Metronidazole (Flagyl) 500 mg PO Q8 [facility] PRN Reason: Protocol Stop: 12/11/16 14:01 Last Admin: 11/27/16 13:17 Dose: 500 mg Morphine Sulfate (Morphine) 4 mg IVP Q4H PRN PRN Reason: Pain, severe (8-10) Oxycodone/Acetaminophen (Percocet 5/325 Mg Tab) 1 tab PO Q6H PRN PRN Reason: Pain, moderate (4-7) Stop: 11/30/16 14:05 Pantoprazole Sodium (Protonix Inj) 40 mg IVP Q12 [facility] Last Admin: 11/27/16 09:28 Dose: 40 mg Results - Vital Signs Recent Vital Signs: Last Vital Signs Temp 98.5 F 11/27/16 07:49 Pulse 92 H 11/27/16 07:49 Resp 17 11/27/16 13:29 BP 110/63 11/27/16 07:49 Pulse Ox 100 11/27/16 07:49 - Labs Result Diagrams: 11/27/16 07:30 11/27/16 07:30 Labs: Laboratory Results - last 24 hr 11/27/16 11/27/16 05:30 07:30 WBC 5.8 RBC 3.59 Hgb 7.6 L Hct 24.9 L MCV 69.4 L MCH 21.2 L MCHC 30.5 L RDW 19.0 H Plt Count 645 H MPV 7.8 Gran % 66.6 Lymph % (Auto) 20.5 L Miller % (Auto) 9.9 H Eos % (Auto) 2.8 Baso % (Auto) 0.2 Gran # 3.84 Lymph # 1.2 Miller # 0.6 Eos # 0.2 Baso # 0.01 Sodium 136 Potassium 4.0 Chloride 101 Carbon Dioxide 26 Anion Gap 13 BUN 3 L Creatinine 0.7 Est GFR ( Amer) > 60 Est GFR (Non-Af Amer) > 60 Random Glucose 87 Calcium 8.2 L Phosphorus 3.7 Magnesium 2.0 Iron 13 L TIBC 223 L % Saturation 6 L Ferritin 140.0 Total Bilirubin 0.3 AST 45 ALT 19 Alkaline Phosphatase 85 Total Protein 6.9 Albumin 3.0 Globulin 3.9 Albumin/Globulin Ratio 0.8 L Folate 17.5 Blood Type A POSITIVE Antibody Screen Negative BBK History Checked Patient has bt Attending/Attestation - Attestation I have personally seen and examined this patient.: Yes I have fully participated in the care of the patient.: Yes I have reviewed all pertinent clinical information: Yes Notes (Text): Patient seen and examined with GI fellow. Agree with his note as documented above with the following additions/exceptions. This is a 21 year old male with h/o fistulizing Crohn's disease not currently on any maintenance medication, h/ o poor follow up/non compliance who presents to hospital with complaint of worsening abdominal pain. He was recently at [facility] [place] with similar complaint found to have possible enterocutaneous fistula, pelvic fluid collection not amenable to IR guided drainage. Continue antibiotic therapy as per infectious disease. Follow up cultures, +VRE. Surgery/IR evaluation. Will make recommendations pending clinical course. 11/27/16 14:29
[2016-11-27] MEDS ORDERED: metroNIDAZOLE IV 500 mg/100 ml 100 ML IVPB SCH (14:00)
[2016-11-27] MEDS: Morphine 4 mg/ml ISec IVP PRN ×3 (15:36→23:56)
--- NOTE | 2016-11-27 15:53 | CP.PCM.CON ---
History of Present Illness - History of Present Illness History of Present Illness: Surgery: Dr. Perdomo CC: Abd pain HPI: 21M w. pmh of Crohn's dx in 2014, who is non-compliant w. medical management, and subsequently has had multiple abd operations for intra- abdominal abscesses. Pt states that he has had at least 7 operations for drainage of intra-abdominal abscesses in the past. The last one being in October at [facility] [place]. Pt also has drug seeking behavior. Pt presents to ED w. R sided abd / flank pain w. multiple draining enterocutaneous fistulas. Pt initially presented to ED on 11/[address] for [address] complaints w[address] CT showing R sided psoas abscess/collection. Pt underwent workup by surgery, IR, and GI. Per IR collection was not drainable. Per GI the pt needs to start medical management of his Crohn's and needs to be compliant. From surgical standpoint, it was recommended that pt follow up w. colorectal specialist at [facility]. Pt was D/C on , he did not follow up on recommendations for medical management. He states that he was unable to arrange transportation, and as a result he has returned to [facility] [place] [facility]. PMH: crohn's PSH: Multiple drainage's of intra-abdominal abscesses, questionable small bowel resection Meds: none ALL: shell fish Social: No ETOH/tobacco, drug seeking behavior Fhx: none Review of Systems - Review of Systems All systems: reviewed and no additional remarkable complaints except (HPI) Past Patient History - Infectious Disease Hx of Infectious Diseases: None - Past Social History Smoking Status: Never Smoked - CARDIAC Hx Cardiac Disorders: No Hx Peripheral Vascular Disease: No - PULMONARY Hx Respiratory Disorders: No Hx Tuberculosis: No - NEUROLOGICAL Hx Neurological Disorder: No Hx Transient Ischemic Attacks (TIA): No - HEENT Hx HEENT Problems: No Hx Macular Degeneration: No - RENAL Hx Chronic Kidney Disease: No Hx Renal Failure: No - ENDOCRINE/METABOLIC Hx Endocrine Disorders: No Hx Systemic Lupus Erythematosus: No - HEMATOLOGICAL/ONCOLOGICAL Hx Blood Disorders: No Hx Unexplained Bleeding: No - INTEGUMENTARY Hx Dermatological Problems: No Hx Squamous Cell: No - MUSCULOSKELETAL/RHEUMATOLOGICAL Hx Musculoskeletal Disorders: No Hx Falls: No Hx Unsteady Gait: No - GASTROINTESTINAL Hx Crohn's Disease: Yes - GENITOURINARY/GYNECOLOGICAL Hx Genitourinary Disorders: No Hx Urinary Tract Infection: No - PSYCHIATRIC Hx Psychophysiologic Disorder: No Hx Sexual Abuse: No - SURGICAL HISTORY Hx Surgeries: Yes (abscess drain) - ANESTHESIA Hx Anesthesia: No Hx Anesthesia Reactions: No Hx Malignant Hyperthermia: No Meds Allergies/Adverse Reactions: Allergies Allergy/AdvReac Type Severity Reaction Status Date / Time FISH Allergy Verified 11/13/16 13:50 shellfish derived AdvReac ANGIOEDEMA Verified 11/22/16 10:53 - Medications Medications: Current Medications Sodium Chloride (Sodium Chloride 0.9%) 1,000 mls @ 100 mls/hr IV .Q10H [facility] Last Admin: 11/27/16 09:24 Dose: 100 mls/hr Piperacillin Sod/Tazobactam Sod (Zosyn 3.375 In Ns 100ml) 100 mls @ 200 mls/hr IVPB Q6 [facility] PRN Reason: Protocol Stop: 12/11/16 12:01 Last Admin: 11/27/16 12:02 Dose: 200 mls/hr Metronidazole (Flagyl) 500 mg PO Q8 [facility] PRN Reason: Protocol Stop: 12/11/16 14:01 Last Admin: 11/27/16 13:17 Dose: 500 mg Morphine Sulfate (Morphine) 4 mg IVP Q4H PRN PRN Reason: Pain, severe (8-10) Last Admin: 11/27/16 15:36 Dose: 4 mg Oxycodone/Acetaminophen (Percocet 5/325 Mg Tab) 1 tab PO Q6H PRN PRN Reason: Pain, moderate (4-7) Stop: 11/30/16 14:05 Pantoprazole Sodium (Protonix Inj) 40 mg IVP Q12 [facility] Last Admin: 11/27/16 09:28 Dose: 40 mg Physical Exam - Constitutional Appears: Non-toxic, No Acute Distress, Other (underweight) - Head Exam Head Exam: ATRAUMATIC, NORMOCEPHALIC - Eye Exam Eye Exam: EOMI. absent: Scleral icterus - ENT Exam ENT Exam: Mucous Membranes Moist, Normal External Ear Exam - Neck Exam Neck exam: Positive for: Full Rom - Respiratory Exam Respiratory Exam: NORMAL BREATHING PATTERN. absent: Accessory Muscle Use, Respiratory Distress - GI/Abdominal Exam GI & Abdominal Exam: Soft, Tenderness (R side / Flank). absent: Distended, Firm , Guarding, Rebound Additional comments: fistula w. purulent drainage at umbilicus, RLQ, RUQ, and R flank, no odor noted , tender to palpation - Extremities Exam Extremities exam: Negative for: calf tenderness, pedal edema - Neurological Exam Neurological exam: Alert, Oriented x3 Results - Vital Signs Recent Vital Signs: Last Vital Signs Temp 98.5 F 11/27/16 07:49 Pulse 92 H 11/27/16 07:49 Resp 17 11/27/16 13:29 BP 110/63 11/27/16 07:49 Pulse Ox 100 11/27/16 07:49 - Labs Result Diagrams: 11/27/16 07:30 11/27/16 07:30 Labs: Laboratory Results - last 24 hr 11/27/16 11/27/16 05:30 07:30 WBC 5.8 RBC 3.59 Hgb 7.6 L Hct 24.9 L MCV 69.4 L MCH 21.2 L MCHC 30.5 L RDW 19.0 H Plt Count 645 H MPV 7.8 Gran % 66.6 Lymph % (Auto) 20.5 L Knott % (Auto) 9.9 H Eos % (Auto) 2.8 Baso % (Auto) 0.2 Gran # 3.84 Lymph # 1.2 Knott # 0.6 Eos # 0.2 Baso # 0.01 Sodium 136 Potassium 4.0 Chloride 101 Carbon Dioxide 26 Anion Gap 13 BUN 3 L Creatinine 0.7 Est GFR ( Amer) > 60 Est GFR (Non-Af Amer) > 60 Random Glucose 87 Calcium 8.2 L Phosphorus 3.7 Magnesium 2.0 Iron 13 L TIBC 223 L % Saturation 6 L Ferritin 140.0 Total Bilirubin 0.3 AST 45 ALT 19 Alkaline Phosphatase 85 Total Protein 6.9 Albumin 3.0 Globulin 3.9 Albumin/Globulin Ratio 0.8 L Folate 17.5 Blood Type A POSITIVE Antibody Screen Negative BBK History Checked Patient has bt - Imaging and Cardiology CT scan - abdomen Status: Image reviewed by me, Report reviewed by me Assessment & Plan - Assessment and Plan (Free Text) Assessment: 21M w. intra-abdominal collections and VRE+ enterocutaneous fistulas 2/2 crohn' s non-compliance -abx per ID -pain management -no plans for surgical intervention -strongly recommend that pt follow up w. specialist at [facility] -will d/w attending Nae PGY2
[2016-11-28] MEDS: Morphine 4 mg/ml ISec IVP PRN ×3 (03:58→11:59)
[2016-11-28] MEDS: Piperacillin/Tazobact 3.375 gm 100 ML IVPB SCH ×4 (05:29→23:46)
[2016-11-28] MEDS: Sodium Chloride 0.9% 1,000 ML IV SCH (05:36)
[2016-11-28 07:15] LABS: ADD MANUAL DIFF? NO
[2016-11-28 07:22] LABS: BASO # 0.03 K/mm3 (0.0-2.0); BASO % 0.2 % (0.0-3.0); EOS # 0.1 (0.0-0.7); EOS % 0.4 % (1.5-5.0); GRAN # 9.88 (1.4-6.5); GRAN % 77.9 % (50.0-68.0); HEMATOCRIT 26.2 % (42.0-52.0); LYMPH # 1.6 (1.2-3.4); LYMPH % 12.7 % (22.0-35.0); MEAN CELL VOLUME 69.5 fL (80.0-105.0); MEAN CORPUSCULAR HEMOGLOBIN 21.8 pg (25.0-35.0); MEAN CORPUSCULAR HGB CONC 31.3 g/dl (31.0-37.0); MEAN PLATELET VOLUME 7.9 fl (7.0-11.0); MONO # 1.1 (0.1-0.6); MONO % 8.8 % (1.0-6.0); WHITE BLOOD COUNT 12.7 10^3/ul (4.5-11.0)
--- NOTE | 2016-11-28 07:24 | CP.PCM.PN ---
<Dar Stokes - Last Filed: 11/28/16 08:56> Subjective - Date & Time of Evaluation Date of Evaluation: 11/28/16 Time of Evaluation: 07:25 - Subjective Subjective: PGY4 GI Fellow Progress Note Patient seen and examined bedside this morning. The patient denies any new complaints today and continues to have abdominal/back discomfort. Eating well with no pain during/following meals. No nausea, vomiting. Passing 2-3 stool per day. 12 system ROS performed and negative except where stated. Objective - Vital Signs/Intake and Output Vital Signs (last 24 hours): Temp Pulse Resp BP Pulse Ox 98.6 F 88 18 103/60 100 11/27/16 16:48 11/27/16 16:48 11/27/16 16:48 11/27/16 16:48 11/27/16 16:48 Intake and Output: 11/28/16 11/28/16 06:59 18:59 Intake Total 1440 Output Total 1100 Balance 340 - Medications Medications: Current Medications Sodium Chloride (Sodium Chloride 0.9%) 1,000 mls @ 100 mls/hr IV .Q10H [facility] Last Admin: 11/28/16 05:36 Dose: 100 mls/hr Piperacillin Sod/Tazobactam Sod (Zosyn 3.375 In Ns 100ml) 100 mls @ 200 mls/hr IVPB Q6 [facility] PRN Reason: Protocol Stop: 12/11/16 12:01 Last Admin: 11/28/16 05:29 Dose: 200 mls/hr Metronidazole (Flagyl) 500 mg PO Q8 [facility] PRN Reason: Protocol Stop: 12/11/16 14:01 Last Admin: 11/28/16 05:29 Dose: 500 mg Morphine Sulfate (Morphine) 4 mg IVP Q4H PRN PRN Reason: Pain, severe (8-10) Last Admin: 11/28/16 03:58 Dose: 4 mg Oxycodone/Acetaminophen (Percocet 5/325 Mg Tab) 1 tab PO Q6H PRN PRN Reason: Pain, moderate (4-7) Stop: 11/30/16 14:05 Pantoprazole Sodium (Protonix Inj) 40 mg IVP Q12 [facility] Last Admin: 11/27/16 21:40 Dose: 40 mg - Labs Labs: 11/27/16 07:30 11/27/16 07:30 PT 12.3 Seconds (9.9-11.8) H 11/26/16 23:20 INR 1.14 (0.93-1.08) H 11/26/16 23:20 APTT 33.8 Seconds (23.7-30.8) H 11/26/16 23:20 - Constitutional Appears: Non-toxic, No Acute Distress - Eye Exam Eye Exam: EOMI, PERRL - ENT Exam ENT Exam: Mucous Membranes Moist - Respiratory Exam Respiratory Exam: Clear to Ausculation Bilateral. absent: Rales, Rhonchi, Wheezes - Cardiovascular Exam Cardiovascular Exam: RRR, +S1, +S2 - GI/Abdominal Exam GI & Abdominal Exam: Soft, Tenderness, Normal Bowel Sounds. absent: Distended, Firm, Guarding, Rigid Additional comments: draining abdominal wounds - Extremities Exam Extremities Exam: Normal Inspection. absent: Pedal Edema - Neurological Exam Neurological Exam: Alert, Awake, Oriented x3 - Psychiatric Exam Psychiatric exam: Normal Affect, Normal Mood - Skin Skin Exam: Dry, Warm Assessment and Plan - Assessment and Plan (Free Text) Assessment: Patient is a 21yo male with PMHx significant for Crohn's disease, diagnosed in 2014, not currently on therapy who presented to the ED with complaint of abdominal pain and purulent abdominal wounds. 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 -Pelvic fluid collection, concern for abscess -Cheilitis Plan: -Case discussed with ID, ABX to be changed given culture positive for VRE on prior admission -Cannot initiate steroid therapy given ongoing infections; would not heal fistulous disease -Patient has been nonadherent to outpatient TNFa therapy which has been shown to improve fistulous CD -Surgical consultation noted, no intervention planned -Patient agrees to follow up with his primary GI doctor in [place] on D/C; recommend scheduling an appointment prior to D/C to ensure continuity of care -No plan for endoscopic intervention at this time <Sunny Griffin - Last Filed: 11/28/16 10:19> Objective - Vital Signs/Intake and Output Vital Signs (last 24 hours): Temp Pulse Resp BP Pulse Ox 98.8 F 89 18 104/64 100 11/28/16 07:30 11/28/16 07:30 11/28/16 07:30 11/28/16 07:30 11/28/16 07:30 Intake and Output: 11/28/16 11/28/16 06:59 18:59 Intake Total 1440 Output Total 1100 Balance 340 - Medications Medications: Current Medications Sodium Chloride (Sodium Chloride 0.9%) 1,000 mls @ 100 mls/hr IV .Q10H [facility] Last Admin: 11/28/16 05:36 Dose: 100 mls/hr Piperacillin Sod/Tazobactam Sod (Zosyn 3.375 In Ns 100ml) 100 mls @ 200 mls/hr IVPB Q6 [facility] PRN Reason: Protocol Stop: 12/11/16 12:01 Last Admin: 11/28/16 05:29 Dose: 200 mls/hr Linezolid (Zyvox 600mg/300ml D5w) 300 mls @ 200 mls/hr IVPB Q12 [facility] PRN Reason: Protocol Stop: 12/05/16 10:01 Last Admin: 11/28/16 09:34 Dose: 200 mls/hr Metronidazole (Flagyl) 500 mg PO Q8 [facility] PRN Reason: Protocol Stop: 12/11/16 14:01 Last Admin: 11/28/16 05:29 Dose: 500 mg Morphine Sulfate (Morphine) 4 mg IVP Q4H PRN PRN Reason: Pain, severe (8-10) Last Admin: 11/28/16 08:10 Dose: 4 mg Oxycodone/Acetaminophen (Percocet 5/325 Mg Tab) 1 tab PO Q6H PRN PRN Reason: Pain, moderate (4-7) Stop: 11/30/16 14:05 Pantoprazole Sodium (Protonix Inj) 40 mg IVP Q12 [facility] Last Admin: 11/28/16 09:34 Dose: 40 mg - Labs Labs: 11/28/16 06:45 11/28/16 06:45 PT 12.3 Seconds (9.9-11.8) H 11/26/16 23:20 INR 1.14 (0.93-1.08) H 11/26/16 23:20 APTT 33.8 Seconds (23.7-30.8) H 11/26/16 23:20 Attending/Attestation - Attestation I have personally seen and examined this patient.: Yes I have fully participated in the care of the patient.: Yes I have reviewed all pertinent clinical information, including history, physical exam and plan: Yes Notes (Text): 11/28/16 10:12 I have seen and examined patient with GI fellow. No acute events overnight. He continues to endorse generalized abdominal discomfort though had two normal bowel movements yesterday. No reported vomiting, fever/chills. Tolerating PO diet without difficulty, appetite good. Crohn's disease with fistulizing component Sepsis, +VRE Pelvic fluid collection, abscess - Diet as tolerated - Continue with antibiotic therapy as per ID, would suggest broadening coverage given presence of VRE - Follow up surgical recommendations - Patient will require additional biologic therapy given presence of fistulizing disease, however he has been non-compliant with therapy in the past. Upon hospital discharge he will follow up with his primary county judge Dr. Waite for further management. Discussion had with patient regarding importance of timely follow up and need for close monitoring of aggressive disease, he understands and agrees with plan. - No planned GI intervention, will sign off case. Please reconsult as necessary , thank you.
[2016-11-28 07:52] LABS: PLATELET COUNT 820 10^3/uL (120.0-450.0)
--- NOTE | 2016-11-28 07:57 | CP.PCM.PN ---
Subjective - Date & Time of Evaluation Date of Evaluation: 11/28/16 Time of Evaluation: 07:53 - Subjective Subjective: SURGERY PROGRESS NOTE FOR DR. HADDAD Patient is seen and examined at bedside. No acute events overnight. Patient is still c/o RLQ abd pain although slightly improved from before. Denies having any N/V/D/C, fevers, chills. Purulent drainage still present from umbilicus. Objective - Vital Signs/Intake and Output Vital Signs (last 24 hours): Temp Pulse Resp BP Pulse Ox 98.6 F 88 18 103/60 100 11/27/16 16:48 11/27/16 16:48 11/27/16 16:48 11/27/16 16:48 11/27/16 16:48 Intake and Output: 11/28/16 11/28/16 06:59 18:59 Intake Total 1440 Output Total 1100 Balance 340 - Medications Medications: Current Medications Sodium Chloride (Sodium Chloride 0.9%) 1,000 mls @ 100 mls/hr IV .Q10H [facility] Last Admin: 11/28/16 05:36 Dose: 100 mls/hr Piperacillin Sod/Tazobactam Sod (Zosyn 3.375 In Ns 100ml) 100 mls @ 200 mls/hr IVPB Q6 [facility] PRN Reason: Protocol Stop: 12/11/16 12:01 Last Admin: 11/28/16 05:29 Dose: 200 mls/hr Metronidazole (Flagyl) 500 mg PO Q8 [facility] PRN Reason: Protocol Stop: 12/11/16 14:01 Last Admin: 11/28/16 05:29 Dose: 500 mg Morphine Sulfate (Morphine) 4 mg IVP Q4H PRN PRN Reason: Pain, severe (8-10) Last Admin: 11/28/16 03:58 Dose: 4 mg Oxycodone/Acetaminophen (Percocet 5/325 Mg Tab) 1 tab PO Q6H PRN PRN Reason: Pain, moderate (4-7) Stop: 11/30/16 14:05 Pantoprazole Sodium (Protonix Inj) 40 mg IVP Q12 [facility] Last Admin: 11/27/16 21:40 Dose: 40 mg - Labs Labs: 11/28/16 06:45 11/27/16 07:30 PT 12.3 Seconds (9.9-11.8) H 11/26/16 23:20 INR 1.14 (0.93-1.08) H 11/26/16 23:20 APTT 33.8 Seconds (23.7-30.8) H 11/26/16 23:20 - Constitutional Appears: Non-toxic, No Acute Distress - Head Exam Head Exam: ATRAUMATIC, NORMAL INSPECTION - ENT Exam ENT Exam: Mucous Membranes Moist - Respiratory Exam Respiratory Exam: absent: Accessory Muscle Use, Chest Wall Tenderness, Respiratory Distress - GI/Abdominal Exam GI & Abdominal Exam: Soft, Tenderness (RLQ). absent: Distended, Firm Additional comments: drainage - Neurological Exam Neurological Exam: Alert, Awake, Oriented x3 - Psychiatric Exam Psychiatric exam: Normal Affect, Normal Mood - Skin Skin Exam: Dry, Normal Color, Warm Assessment and Plan - Assessment and Plan (Free Text) Assessment: 21M w. 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 specialist at [facility] Will discuss with attending Dr. Conor Valadez PGY1
[2016-11-28 08:21] LABS: BLOOD UREA NITROGEN 3 mg/dL (7-21); CALCIUM 8.7 mg/dL (8.4-10.5); CARBON DIOXIDE 27 mmol/L (21-33); CHLORIDE 103 mmol/L (95-110); GFR AFRICAN-AMERICAN > 60; GLUCOSE,RANDOM 79 mg/dL (70-110); POTASSIUM 3.9 mmol/L (3.6-5.0); SODIUM 142 mmol/L (132-148)
[2016-11-28] MEDS: Linezolid 600 mg in D5W 300 ml 300 ML IVPB SCH ×2 (09:34→21:15)
[2016-11-28] MEDS: HYDROmorphone 0.5 mg/0.5 ml ISec IVP PRN ×3 (13:02→21:12)
--- NOTE | 2016-11-28 13:41 | CP.PCM.PN ---
<Callum Vazquez - Last Filed: 11/28/16 18:36> Subjective - Date & Time of Evaluation Date of Evaluation: 11/28/16 Time of Evaluation: 09:20 - Subjective Subjective: 21 yo AA M with PMH of Crohn's, Iron-deficiency anemia, and possible drug- seeking behavior who presents with complaint of lower abdominal pain and multiple draining abscesses on abdomen and back. Today he is only complaining of his abdominal pain. He denies headache, fever, chills, chest pain, dyspnea, nausea, vomiting, diarrhea. Objective - Vital Signs/Intake and Output Vital Signs (last 24 hours): Temp Pulse Resp BP Pulse Ox 98.8 F 89 18 104/64 100 11/28/16 07:30 11/28/16 07:30 11/28/16 07:30 11/28/16 07:30 11/28/16 07:30 Intake and Output: 11/28/16 11/28/16 06:59 18:59 Intake Total 1440 Output Total 1100 Balance 340 - Medications Medications: Current Medications Hydromorphone HCl (Dilaudid) 0.5 mg IVP Q4H PRN PRN Reason: Pain, severe (8-10) Last Admin: 11/28/16 13:02 Dose: 0.5 mg Sodium Chloride (Sodium Chloride 0.9%) 1,000 mls @ 100 mls/hr IV .Q10H [facility] Last Admin: 11/28/16 05:36 Dose: 100 mls/hr Piperacillin Sod/Tazobactam Sod (Zosyn 3.375 In Ns 100ml) 100 mls @ 200 mls/hr IVPB Q6 [facility] PRN Reason: Protocol Stop: 12/11/16 12:01 Last Admin: 11/28/16 11:58 Dose: 200 mls/hr Linezolid (Zyvox 600mg/300ml D5w) 300 mls @ 200 mls/hr IVPB Q12 [facility] PRN Reason: Protocol Stop: 12/05/16 10:01 Last Admin: 11/28/16 09:34 Dose: 200 mls/hr Metronidazole (Flagyl) 500 mg PO Q8 [facility] PRN Reason: Protocol Stop: 12/11/16 14:01 Last Admin: 11/28/16 13:02 Dose: 500 mg Oxycodone/Acetaminophen (Percocet 5/325 Mg Tab) 1 tab PO Q6H PRN PRN Reason: Pain, moderate (4-7) Stop: 11/30/16 14:05 Pantoprazole Sodium (Protonix Inj) 40 mg IVP Q12 [facility] Last Admin: 11/28/16 09:34 Dose: 40 mg - Labs Labs: 11/28/16 06:45 11/28/16 06:45 PT 12.3 Seconds (9.9-11.8) H 11/26/16 23:20 INR 1.14 (0.93-1.08) H 11/26/16 23:20 APTT 33.8 Seconds (23.7-30.8) H 11/26/16 23:20 - Constitutional Appears: Non-toxic, No Acute Distress - Head Exam Head Exam: ATRAUMATIC, NORMOCEPHALIC - Eye Exam Eye Exam: EOMI - ENT Exam ENT Exam: Mucous Membranes Moist - Neck Exam Neck Exam: Full ROM. absent: Lymphadenopathy - Respiratory Exam Respiratory Exam: Clear to Ausculation Bilateral, NORMAL BREATHING PATTERN - Cardiovascular Exam Cardiovascular Exam: REGULAR RHYTHM, RRR, +S1, +S2. absent: JVD - GI/Abdominal Exam GI & Abdominal Exam: Guarding, Soft, Tenderness, Normal Bowel Sounds Additional comments: multiple draingin abscesses in RLQ - Extremities Exam Extremities Exam: Full ROM. absent: Joint Swelling - Back Exam Back Exam: CVA tenderness (R). absent: CVA tenderness (L), rash noted - Neurological Exam Neurological Exam: Alert, Awake - Psychiatric Exam Psychiatric exam: Normal Affect, Normal Mood - Skin Skin Exam: Dry, Intact, Normal Color, Warm Assessment and Plan - Assessment and Plan (Free Text) Assessment: This is a 21 yo AA M with PMH of Crohn's, Iron-deficiency anemia, and possible drug-seeking behavior who presents with complaint of lower abdominal pain and multiple draining abscesses on abdomen and back. Plan: Worsening abdominal pain likely 2/2 untreated Crohn's with Abscesses/fistula vs UTI, may be both: -Was previously instructed to follow up at [facility], has not done so -Consult Surgery - Dr. Perdomo appreciate recs -abx per ID -pain management -no plans for surgical intervention -strongly recommend that pt follow up w. specialist at [facility] -recommend Flagyl -Consult GI - Dr. Hamlin -Case discussed with ID, ABX to be changed given culture positive for VRE on prior admission -Cannot initiate steroid therapy given ongoing infections; would not heal fistulous disease -Patient has been nonadherent to outpatient TNFa therapy which has been shown to improve fistulous CD -Surgical consultation noted, no intervention planned -follow up with his primary GI doctor in [place] on D/C -No plan for endoscopic intervention at this time -Consult ID - Dr. Wang -Flagyl 500mg po q8 -Zosyn 3.375 IV q6 -Linezolid 600mg IV Q12 -Wound cultures No Growth after 24hrs -Urine Cultures - ordered -CT abd/pelvis -notes new colonic wall thickening and bladder wall thickening -NPO, IVF NS 150cc/hr -Pain control with Percocet 5/325 for mod pain -Pain control with Diluadid .5mg q4 prn for severe pain Anemia: -Iron deficiency likely 2/2 Crohn's, vs bleeding lesions 2/2 crohn's -Iron, Ferritin, TIBC ordered, both low -Folate normal -Type and screen ordered -Feosol TID -Multivitamin -Vit C PPX: Protonix for GI, SCDs for DVT <Alecia Heredia - Last Filed: 11/30/16 14:51> Objective - Vital Signs/Intake and Output Vital Signs (last 24 hours): Temp Pulse Resp BP Pulse Ox 97.9 F 93 H 20 115/46 L 94 L 11/30/16 07:30 11/30/16 07:30 11/30/16 07:30 11/30/16 07:30 11/30/16 07:30 Intake and Output: 11/30/16 11/30/16 06:59 18:59 Intake Total 1680 Output Total 1000 Balance 680 - Labs Labs: 11/29/16 07:00 11/29/16 07:00 PT 12.3 Seconds (9.9-11.8) H 11/26/16 23:20 INR 1.14 (0.93-1.08) H 11/26/16 23:20 APTT 33.8 Seconds (23.7-30.8) H 11/26/16 23:20 Attending/Attestation - Attestation I have personally seen and examined this patient.: Yes I have fully participated in the care of the patient.: Yes I have reviewed all pertinent clinical information, including history, physical exam and plan: Yes Notes (Text): I have seen and examined patient with the resident. I agree with the above note with the following additions/ exceptions: 21 yo AA M with PMH of Crohn's disease , non compliance with medications and possible drug-seeking behavior who presents with complaint of lower abdominal pain and multiple draining abscesses / Fistula on abdomen and inguinal area. Today he is only complaining of his abdominal pain. He denies headache, fever, chills, chest pain, dyspnea, nausea, vomiting, diarrhea. GI and surgery recommended to follow up with outpatient GI and Colorectal surgeon in [facility]. Wound cultures are growing VRE. ID on board who recommended zosyn and zyvox. Dr Alecia Heredia
[2016-11-28] MEDS: Multiple Vitamins Oral Solution PO SCH (17:02)
--- NOTE | 2016-11-28 17:02 | CP.PCM.PN ---
Subjective - Date & Time of Evaluation Date of Evaluation: 11/28/16 Time of Evaluation: 11:35 - Subjective Subjective: Comfortable, afebrile, less pain the abdomen. Objective - Vital Signs/Intake and Output Vital Signs (last 24 hours): Temp Pulse Resp BP Pulse Ox 98.8 F 89 18 104/64 100 11/28/16 07:30 11/28/16 07:30 11/28/16 07:30 11/28/16 07:30 11/28/16 07:30 - Medications Medications: Current Medications Ascorbic Acid (Vitamin C 500 Mg Tab) 500 mg PO DAILY [facility] Ferrous Sulfate (Feosol) 324 mg PO TID [facility] Last Admin: 11/28/16 14:00 Dose: Not Given Hydromorphone HCl (Dilaudid) 0.5 mg IVP Q4H PRN PRN Reason: Pain, severe (8-10) Last Admin: 11/28/16 13:02 Dose: 0.5 mg Sodium Chloride (Sodium Chloride 0.9%) 1,000 mls @ 100 mls/hr IV .Q10H [facility] Last Admin: 11/28/16 05:36 Dose: 100 mls/hr Piperacillin Sod/Tazobactam Sod (Zosyn 3.375 In Ns 100ml) 100 mls @ 200 mls/hr IVPB Q6 [facility] PRN Reason: Protocol Stop: 12/11/16 12:01 Last Admin: 11/28/16 11:58 Dose: 200 mls/hr Linezolid (Zyvox 600mg/300ml D5w) 300 mls @ 200 mls/hr IVPB Q12 [facility] PRN Reason: Protocol Stop: 12/05/16 10:01 Last Admin: 11/28/16 09:34 Dose: 200 mls/hr Metronidazole (Flagyl) 500 mg PO Q8 [facility] PRN Reason: Protocol Stop: 12/11/16 14:01 Last Admin: 11/28/16 13:02 Dose: 500 mg Multivitamins/Vitamin C (Multi-Delyn Liquid) 15 ml PO DAILY [facility] Oxycodone/Acetaminophen (Percocet 5/325 Mg Tab) 1 tab PO Q6H PRN PRN Reason: Pain, moderate (4-7) Stop: 11/30/16 14:05 Pantoprazole Sodium (Protonix Inj) 40 mg IVP Q12 [facility] Last Admin: 11/28/16 09:34 Dose: 40 mg - Labs Labs: PT 12.3 Seconds (9.9-11.8) H 11/26/16 23:20 INR 1.14 (0.93-1.08) H 11/26/16 23:20 APTT 33.8 Seconds (23.7-30.8) H 11/26/16 23:20 - Constitutional Appears: Non-toxic, No Acute Distress - Head Exam Head Exam: NORMAL INSPECTION - ENT Exam ENT Exam: Mucous Membranes Moist - Neck Exam Neck Exam: absent: Lymphadenopathy, Meningismus - Respiratory Exam Respiratory Exam: Decreased Breath Sounds - Cardiovascular Exam Cardiovascular Exam: +S1, +S2 - GI/Abdominal Exam GI & Abdominal Exam: Soft. 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
[2016-11-28] MEDS: Oxycodone/Acetaminophen 5/325 mg Tab PO PRN (20:41)
[2016-11-29] MEDS: HYDROmorphone 0.5 mg/0.5 ml ISec IVP PRN ×6 (01:24→22:31)
[2016-11-29] MEDS: Sodium Chloride 0.9% 1,000 ML IV SCH ×2 (01:27→18:23)
[2016-11-29] MEDS: Oxycodone/Acetaminophen 5/325 mg Tab PO PRN ×4 (02:50→21:08)
[2016-11-29] MEDS: Piperacillin/Tazobact 3.375 gm 100 ML IVPB SCH ×3 (05:23→18:32)
[2016-11-29 07:13] LABS: ADD MANUAL DIFF? NO
[2016-11-29 07:27] LABS: ALB/GLOB RATIO 0.8 (1.1-1.8); ALKALINE PHOSPHATASE 83 U/L (38-133); ALT/SGPT 8 U/L (7-56); AST/SGOT 35 U/L (15-59); BILIRUBIN,TOTAL 0.3 mg/dL (0.2-1.3); BLOOD UREA NITROGEN 4 mg/dL (7-21); CALCIUM 8.5 mg/dL (8.4-10.5); CARBON DIOXIDE 26 mmol/L (21-33); CHLORIDE 101 mmol/L (95-110); GFR AFRICAN-AMERICAN > 60; GLUCOSE,RANDOM 80 mg/dL (70-110); POTASSIUM 3.8 mmol/L (3.6-5.0); SODIUM 139 mmol/L (132-148); TOTAL PROTEIN 7.4 g/dL (5.8-8.3)
[2016-11-29 07:28] LABS: BASO # 0.02 K/mm3 (0.0-2.0); BASO % 0.2 % (0.0-3.0); EOS # 0.1 (0.0-0.7); EOS % 0.5 % (1.5-5.0); GRAN # 9.63 (1.4-6.5); GRAN % 73.6 % (50.0-68.0); HEMATOCRIT 25.8 % (42.0-52.0); LYMPH # 1.8 (1.2-3.4); LYMPH % 13.5 % (22.0-35.0); MEAN CELL VOLUME 69.4 fL (80.0-105.0); MEAN CORPUSCULAR HEMOGLOBIN 21.5 pg (25.0-35.0); MEAN PLATELET VOLUME 8.1 fl (7.0-11.0); MONO # 1.6 (0.1-0.6); MONO % 12.2 % (1.0-6.0); RED CELL DISTRIBUTION WIDTH 19.1 % (11.5-14.5); WHITE BLOOD COUNT 13.1 10^3/ul (4.5-11.0)
[2016-11-29 07:42] LABS: PLATELET COUNT 790 10^3/uL (120.0-450.0)
--- NOTE | 2016-11-29 07:54 | CP.PCM.PN ---
Subjective - Date & Time of Evaluation Date of Evaluation: 11/29/16 Time of Evaluation: 07:51 - Subjective Subjective: SURGICAL PROGRESS NOTE FOR DR. HADDAD Patient is seen and examined at bedside. No acute events overnight. Patient states pain is improving. He is tolerating diet. Patient states that he is passing gas and had a BM. Denies having dysuria, fevers or chills. Objective - Vital Signs/Intake and Output Vital Signs (last 24 hours): Temp Pulse Resp BP Pulse Ox 97 F L 84 18 98/72 L 100 11/28/16 16:00 11/28/16 16:00 11/28/16 16:00 11/28/16 16:00 11/28/16 16:00 Intake and Output: 11/29/16 11/29/16 06:59 18:59 Intake Total 1200 Balance 1200 - Medications Medications: Current Medications Ascorbic Acid (Vitamin C 500 Mg Tab) 500 mg PO DAILY [facility] Last Admin: 11/28/16 17:01 Dose: 500 mg Ferrous Sulfate (Feosol) 324 mg PO TID [facility] Last Admin: 11/28/16 17:01 Dose: 324 mg Hydromorphone HCl (Dilaudid) 0.5 mg IVP Q4H PRN PRN Reason: Pain, severe (8-10) Last Admin: 11/29/16 05:22 Dose: 0.5 mg Sodium Chloride (Sodium Chloride 0.9%) 1,000 mls @ 100 mls/hr IV .Q10H [facility] Last Admin: 11/29/16 01:27 Dose: 100 mls/hr Piperacillin Sod/Tazobactam Sod (Zosyn 3.375 In Ns 100ml) 100 mls @ 200 mls/hr IVPB Q6 [facility] PRN Reason: Protocol Stop: 12/11/16 12:01 Last Admin: 11/29/16 05:23 Dose: 200 mls/hr Linezolid (Zyvox 600mg/300ml D5w) 300 mls @ 200 mls/hr IVPB Q12 [facility] PRN Reason: Protocol Stop: 12/05/16 10:01 Last Admin: 11/28/16 21:15 Dose: 200 mls/hr Multivitamins/Vitamin C (Multi-Delyn Liquid) 15 ml PO DAILY [facility] Last Admin: 11/28/16 17:02 Dose: 15 ml Oxycodone/Acetaminophen (Percocet 5/325 Mg Tab) 1 tab PO Q6H PRN PRN Reason: Pain, moderate (4-7) Stop: 11/30/16 14:05 Last Admin: 11/29/16 02:50 Dose: 1 tab Pantoprazole Sodium (Protonix Inj) 40 mg IVP Q12 [facility] Last Admin: 11/28/16 21:13 Dose: 40 mg - Labs Labs: 11/29/16 07:00 11/29/16 07:00 PT 12.3 Seconds (9.9-11.8) H 11/26/16 23:20 INR 1.14 (0.93-1.08) H 11/26/16 23:20 APTT 33.8 Seconds (23.7-30.8) H 11/26/16 23:20 - Constitutional Appears: Non-toxic, No Acute Distress - Head Exam Head Exam: ATRAUMATIC - ENT Exam ENT Exam: Mucous Membranes Moist - GI/Abdominal Exam GI & Abdominal Exam: Soft, Tenderness. absent: Distended, Firm, Guarding Additional comments: umbilical fistula is still draining - Neurological Exam Neurological Exam: Alert, Awake, Oriented x3 - Psychiatric Exam Psychiatric exam: Normal Affect, Normal Mood - Skin Skin Exam: Dry, Intact, Normal Color, Warm Assessment and Plan - Assessment and Plan (Free Text) Assessment: 21M w. 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 specialist at [facility] -Surgery will sign off. Please feel free to consult again if necessary. Will discuss with attending Dr. Conor Valadez PGY1
[2016-11-29 09:10] VITALS: RESP 20
[2016-11-29] MEDS: Linezolid 600 mg in D5W 300 ml 300 ML IVPB SCH ×2 (11:00→22:31)
[2016-11-29] MEDS: Multiple Vitamins Oral Solution PO SCH (11:15)
[2016-11-29] MEDS ORDERED: Micafungin 100 MG in Sodium Chloride 0.9% 100 ML IV SCH (13:30)
--- NOTE | 2016-11-29 13:30 | CP.PCM.PN ---
Subjective - Date & Time of Evaluation Date of Evaluation: 11/29/16 Time of Evaluation: 10:00 - Subjective Subjective: Comfortable in bed, less abdominal pain, afebrile overnight. Objective - Vital Signs/Intake and Output Vital Signs (last 24 hours): Temp Pulse Resp BP Pulse Ox 97 F L 84 18 98/72 L 100 11/28/16 16:00 11/28/16 16:00 11/28/16 16:00 11/28/16 16:00 11/28/16 16:00 Intake and Output: 11/29/16 11/29/16 06:59 18:59 Intake Total 1200 Balance 1200 - Medications Medications: Current Medications Ascorbic Acid (Vitamin C 500 Mg Tab) 500 mg PO DAILY [facility] Last Admin: 11/28/16 17:01 Dose: 500 mg Ferrous Sulfate (Feosol) 324 mg PO TID [facility] Last Admin: 11/28/16 17:01 Dose: 324 mg Hydromorphone HCl (Dilaudid) 0.5 mg IVP Q4H PRN PRN Reason: Pain, severe (8-10) Last Admin: 11/29/16 05:22 Dose: 0.5 mg Sodium Chloride (Sodium Chloride 0.9%) 1,000 mls @ 100 mls/hr IV .Q10H [facility] Last Admin: 11/29/16 01:27 Dose: 100 mls/hr Piperacillin Sod/Tazobactam Sod (Zosyn 3.375 In Ns 100ml) 100 mls @ 200 mls/hr IVPB Q6 [facility] PRN Reason: Protocol Stop: 12/11/16 12:01 Last Admin: 11/29/16 05:23 Dose: 200 mls/hr Linezolid (Zyvox 600mg/300ml D5w) 300 mls @ 200 mls/hr IVPB Q12 [facility] PRN Reason: Protocol Stop: 12/05/16 10:01 Last Admin: 11/28/16 21:15 Dose: 200 mls/hr Multivitamins/Vitamin C (Multi-Delyn Liquid) 15 ml PO DAILY [facility] Last Admin: 11/28/16 17:02 Dose: 15 ml Oxycodone/Acetaminophen (Percocet 5/325 Mg Tab) 1 tab PO Q6H PRN PRN Reason: Pain, moderate (4-7) Stop: 11/30/16 14:05 Last Admin: 11/29/16 02:50 Dose: 1 tab Pantoprazole Sodium (Protonix Inj) 40 mg IVP Q12 [facility] Last Admin: 11/28/16 21:13 Dose: 40 mg - Labs Labs: 11/29/16 07:00 PT 12.3 Seconds (9.9-11.8) H 11/26/16 23:20 INR 1.14 (0.93-1.08) H 11/26/16 23:20 APTT 33.8 Seconds (23.7-30.8) H 11/26/16 23:20 - Constitutional Appears: Non-toxic, No Acute Distress - Head Exam Head Exam: NORMAL INSPECTION - ENT Exam ENT Exam: Mucous Membranes Moist - Neck Exam Neck Exam: absent: Lymphadenopathy, Meningismus - Respiratory Exam Respiratory Exam: Decreased Breath Sounds - Cardiovascular Exam Cardiovascular Exam: +S1, +S2 - GI/Abdominal Exam GI & Abdominal Exam: Soft. absent: Tenderness Assessment and Plan - Assessment and Plan (Free Text) Plan: Assessment Sepsis secondary to enterocutaneous fistula with associated areas of phlegmon and microabscesses, growing Vancomycin-resistant Enterococcus faecium from 11/24 , growing gram positive cocci and yeast from 11/27, in a patient with poorly- controlled Crohn's disease Plan Added Zyvox on top of Zosyn as well as Mycamine; follow up identification and sensitivities of the gram positive cocci and yeast in the new cultures; since these are fistulas, patient will need long-term antibiotic therapy (ideally until the fistulas heal, but as long as no more drainage occurs, then it can be observed carefully) Discussed with GI fellow Will continue to monitor clinically
--- NOTE | 2016-11-29 14:01 | CP.PCM.PN ---
<VazquezCallum - Last Filed: 11/29/16 17:16> Subjective - Date & Time of Evaluation Date of Evaluation: 11/29/16 Time of Evaluation: 07:40 - Subjective Subjective: 21 yo AA M with PMH of Crohn's, Iron-deficiency anemia, and possible drug- seeking behavior who presented with complaint of lower abdominal pain and multiple draining abscesses on his abdomen and back. Today his abdominal pain is slightly better. He denies headache, fever, chills, chest pain, dyspnea, nausea, vomiting, or diarrhea. Objective - Vital Signs/Intake and Output Vital Signs (last 24 hours): Temp Pulse Resp BP Pulse Ox 98.7 F 86 20 101/59 L 100 11/29/16 07:30 11/29/16 07:30 11/29/16 07:30 11/29/16 07:30 11/29/16 07:30 Intake and Output: 11/29/16 11/29/16 06:59 18:59 Intake Total 1200 Balance 1200 - Medications Medications: Current Medications Ascorbic Acid (Vitamin C 500 Mg Tab) 500 mg PO DAILY [facility] Last Admin: 11/29/16 10:59 Dose: 500 mg Ferrous Sulfate (Feosol) 324 mg PO TID [facility] Last Admin: 11/29/16 10:59 Dose: 324 mg Hydromorphone HCl (Dilaudid) 0.5 mg IVP Q4H PRN PRN Reason: Pain, severe (8-10) Last Admin: 11/29/16 09:49 Dose: 0.5 mg Sodium Chloride (Sodium Chloride 0.9%) 1,000 mls @ 100 mls/hr IV .Q10H [facility] Last Admin: 11/29/16 01:27 Dose: 100 mls/hr Piperacillin Sod/Tazobactam Sod (Zosyn 3.375 In Ns 100ml) 100 mls @ 200 mls/hr IVPB Q6 [facility] PRN Reason: Protocol Stop: 12/11/16 12:01 Last Admin: 11/29/16 12:52 Dose: 200 mls/hr Linezolid (Zyvox 600mg/300ml D5w) 300 mls @ 200 mls/hr IVPB Q12 [facility] PRN Reason: Protocol Stop: 12/05/16 10:01 Last Admin: 11/29/16 11:00 Dose: 200 mls/hr Micafungin Sodium 100 mg/ (Sodium Chloride) 100 mls @ 100 mls/hr IV DAILY [facility] PRN Reason: Protocol Stop: 12/06/16 13:31 Multivitamins/Vitamin C (Multi-Delyn Liquid) 15 ml PO DAILY [facility] Last Admin: 11/29/16 11:15 Dose: 15 ml Oxycodone/Acetaminophen (Percocet 5/325 Mg Tab) 1 tab PO Q6H PRN PRN Reason: Pain, moderate (4-7) Stop: 11/30/16 14:05 Last Admin: 11/29/16 08:33 Dose: 1 tab Pantoprazole Sodium (Protonix Ec Tab) 40 mg PO 0730,1630 [facility] - Labs Labs: 11/29/16 07:00 11/29/16 07:00 PT 12.3 Seconds (9.9-11.8) H 11/26/16 23:20 INR 1.14 (0.93-1.08) H 11/26/16 23:20 APTT 33.8 Seconds (23.7-30.8) H 11/26/16 23:20 - Constitutional Appears: Non-toxic, No Acute Distress - Head Exam Head Exam: ATRAUMATIC, NORMOCEPHALIC - Eye Exam Eye Exam: EOMI - ENT Exam ENT Exam: Mucous Membranes Moist - Neck Exam Neck Exam: Full ROM, Normal Inspection - Respiratory Exam Respiratory Exam: Clear to Ausculation Bilateral, NORMAL BREATHING PATTERN - Cardiovascular Exam Cardiovascular Exam: REGULAR RHYTHM - GI/Abdominal Exam GI & Abdominal Exam: Guarding, Soft, Tenderness, Normal Bowel Sounds - Extremities Exam Extremities Exam: Full ROM. absent: Joint Swelling - Back Exam Back Exam: CVA tenderness (R), tenderness - Neurological Exam Neurological Exam: Alert, Awake - Psychiatric Exam Psychiatric exam: Normal Affect, Normal Mood - Skin Skin Exam: Dry, Intact, Normal Color, Warm Additional comments: multiple draining abdominal abscesses in RLQ Assessment and Plan - Assessment and Plan (Free Text) Assessment: This is a 21 yo AA M with PMH of Crohn's, Iron-deficiency anemia, and possible drug-seeking behavior who presents with complaint of lower abdominal pain and multiple draining abscesses on abdomen and back. Plan: Worsening abdominal pain likely 2/2 untreated Crohn's with Abscesses/fistula vs UTI, may be both: -Was previously instructed to follow up at [facility], has not done so -will follow up with them this -has appt with his primary care next week -Consult Surgery - Dr. Perdomo appreciate recs -abx per ID -pain management -strongly recommend that pt follow up w. specialist at [facility] -recommend Flagyl -no plans for surgical intervention -Consult GI - Dr. Hamlin -Case discussed with ID, ABX to be changed given culture positive for VRE on prior admission -Cannot initiate steroid therapy given ongoing infections; would not heal fistulous disease -Patient has been nonadherent to outpatient TNFa therapy which has been shown to improve fistulous CD -Surgical consultation noted, no intervention planned -follow up with his primary GI doctor in [place] on D/C -No plan for endoscopic intervention at this time -Consult ID - Dr. Wang -recommends IV antibiotics -Flagyl 500mg po q8 -Zosyn 3.375 IV q6 -Linezolid 600mg IV Q12 -added Mycamine -Wound cultures -Gram Positive Cocci light growth -Yeast Species light growth -Urine Cultures - received -Stool Cultures - uncollected -CT abd/pelvis -notes new colonic wall thickening and bladder wall thickening -normal diet -IVF NS decreased to 100cc/hr -Pain control with Percocet 5/325 for mod pain -Pain control with Diluadid .5mg q4 prn for severe pain Anemia: -Iron deficiency likely 2/2 Crohn's, vs bleeding lesions 2/2 crohn's -Iron, Ferritin, TIBC ordered, both low -Folate normal -Type and screen received -Feosol TID -Multivitamin -Vit C PPX: Protonix for GI, SCDs for DVT <Alecia Heredia - Last Filed: 11/30/16 14:55> Objective - Vital Signs/Intake and Output Vital Signs (last 24 hours): Temp Pulse Resp BP Pulse Ox 97.9 F 93 H 20 115/46 L 94 L 11/30/16 07:30 11/30/16 07:30 11/30/16 07:30 11/30/16 07:30 11/30/16 07:30 Intake and Output: 11/30/16 11/30/16 06:59 18:59 Intake Total 1680 Output Total 1000 Balance 680 - Labs Labs: 11/29/16 07:00 11/29/16 07:00 PT 12.3 Seconds (9.9-11.8) H 11/26/16 23:20 INR 1.14 (0.93-1.08) H 11/26/16 23:20 APTT 33.8 Seconds (23.7-30.8) H 11/26/16 23:20 Attending/Attestation - Attestation I have personally seen and examined this patient.: Yes I have fully participated in the care of the patient.: Yes I have reviewed all pertinent clinical information, including history, physical exam and plan: Yes Notes (Text): I have seen and examined patient with the resident. 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 Denies any new complaints. Requesting to be discharged tomorrow morning. States that he has a ride to go to [facility] tomorrow. GI and surgery recommended to follow up with outpatient GI and Colorectal surgeon in [facility]. Wound cultures are growing VRE. ID on board who recommended zosyn and zyvox. Dr Alecia Heredia
[2016-11-29] MEDS: Pantoprazole 40 mg EC Tab PO SCH (18:27)
[2016-11-30] MEDS: Piperacillin/Tazobact 3.375 gm 100 ML IVPB SCH ×2 (00:32→05:31)
[2016-11-30] MEDS: HYDROmorphone 0.5 mg/0.5 ml ISec IVP PRN ×2 (02:54→07:00)
[2016-11-30] MEDS: Oxycodone/Acetaminophen 5/325 mg Tab PO PRN (03:23)
[2016-11-30] MEDS: Sodium Chloride 0.9% 1,000 ML IV SCH (05:45)
[2016-11-30] MEDS: Pantoprazole 40 mg EC Tab PO SCH (08:08)
[2016-11-30 09:05] VITALS: BP 115/46; PULSE 93; TEMP 97.9; O2SAT 94
--- NOTE | 2016-11-30 13:09 | CP.PCM.DIS ---
<VazquezCallum - Last Filed: 11/30/16 16:59> Provider - Provider Date of Admission: 11/28/16 15:25 Attending physician: Alecia Heredia MD Primary care physician: NO PRIMARY CARE PROVIDER Time Spent in preparation of Discharge (in minutes): 35 Diagnosis - Discharge Diagnosis (1) Crohn's disease Status: Acute (2) Intra-abdominal abscess Status: Acute Hospital Course - Lab Results Lab Results: Micro Results 11/29/16 01:20 Urine Urine Culture - Final No Growth (<1,000 CFU/ML) Most Recent Lab Values WBC 13.1 10^3/ul (4.5-11.0) H 11/29/16 07:00 RBC 3.72 10^6/uL (3.5-6.1) 11/29/16 07:00 Hgb 8.0 gm/dL (14.0-18.0) L 11/29/16 07:00 Hct 25.8 % (42.0-52.0) L 11/29/16 07:00 MCV 69.4 fL (80.0-105.0) L 11/29/16 07:00 MCH 21.5 pg (25.0-35.0) L 11/29/16 07:00 MCHC 31.0 g/dl (31.0-37.0) 11/29/16 07:00 RDW 19.1 % (11.5-14.5) H 11/29/16 07:00 Plt Count 790 10^3/uL (120.0-450.0) H* 11/29/16 07:00 MPV 8.1 fl (7.0-11.0) 11/29/16 07:00 Gran % 73.6 % (50.0-68.0) H 11/29/16 07:00 Lymph % (Auto) 13.5 % (22.0-35.0) L 11/29/16 07:00 [place] % (Auto) 12.2 % (1.0-6.0) H 11/29/16 07:00 Eos % (Auto) 0.5 % (1.5-5.0) L 11/29/16 07:00 Baso % (Auto) 0.2 % (0.0-3.0) 11/29/16 07:00 Gran # 9.63 (1.4-6.5) H 11/29/16 07:00 Lymph # 1.8 (1.2-3.4) 11/29/16 07:00 [place] # 1.6 (0.1-0.6) H 11/29/16 07:00 Eos # 0.1 (0.0-0.7) 11/29/16 07:00 Baso # 0.02 K/mm3 (0.0-2.0) 11/29/16 07:00 PT 12.3 Seconds (9.9-11.8) H 11/26/16 23:20 INR 1.14 (0.93-1.08) H 11/26/16 23:20 APTT 33.8 Seconds (23.7-30.8) H 11/26/16 23:20 Sodium 139 mmol/L (132-148) 11/29/16 07:00 Potassium 3.8 mmol/L (3.6-5.0) 11/29/16 07:00 Chloride 101 mmol/L (95-110) 11/29/16 07:00 Carbon Dioxide 26 mmol/L (21-33) 11/29/16 07:00 Anion Gap 16 (10-20) 11/29/16 07:00 BUN 4 mg/dL (7-21) L 11/29/16 07:00 Creatinine 0.8 mg/dL (0.5-1.4) 11/29/16 07:00 Est GFR ( Amer) > 60 11/29/16 07:00 Est GFR (Non-Af Amer) > 60 11/29/16 07:00 Random Glucose 80 mg/dL (70-110) 11/29/16 07:00 Calcium 8.5 mg/dL (8.4-10.5) 11/29/16 07:00 Phosphorus 3.7 mg/dL (2.5-4.5) 11/27/16 07:30 Magnesium 2.0 mg/dL (1.7-2.2) 11/27/16 07:30 Iron 13 ug/dL (45-180) L 11/27/16 07:30 TIBC 223 ug/dL (261-462) L 11/27/16 07:30 % Saturation 6 % (20-55) L 11/27/16 07:30 Ferritin 140.0 ng/mL 11/27/16 07:30 Total Bilirubin 0.3 mg/dL (0.2-1.3) 11/29/16 07:00 AST 35 U/L (15-59) 11/29/16 07:00 ALT 8 U/L (7-56) 11/29/16 07:00 Alkaline Phosphatase 83 U/L (38-133) 11/29/16 07:00 Total Protein 7.4 g/dL (5.8-8.3) 11/29/16 07:00 Albumin 3.2 g/dL (3.0-4.8) 11/29/16 07:00 Globulin 4.2 gm/dL 11/29/16 07:00 Albumin/Globulin Ratio 0.8 (1.1-1.8) L 11/29/16 07:00 Lipase 26 U/L (23-300) 11/26/16 23:20 Folate 17.5 ng/mL 11/27/16 07:30 Urine Color Yellow (YELLOW) 11/27/16 02:03 Urine Appearance Clear (CLEAR) 11/27/16 02:03 Urine pH 7.0 (4.7-8.0) 11/27/16 02:03 Ur Specific [place] 1.010 (1.005-1.035) 11/27/16 02:03 Urine Protein 30 mg/dL (<30 mg/dL) H 11/27/16 02:03 Urine Glucose (UA) Negative mg/dL (NEGATIVE) 11/27/16 02:03 Urine Ketones Negative mg/dL (NEGATIVE) 11/27/16 02:03 Urine Blood Negative (NEGATIVE) 11/27/16 02:03 Urine Nitrate Negative (NEGATIVE) 11/27/16 02:03 Urine Bilirubin Negative (NEGATIVE) 11/27/16 02:03 Urine Urobilinogen 0.2 E.U./dL (<1 E.U./dL) 11/27/16 02:03 Ur Leukocyte Esterase Negative [place]/uL (NEGATIVE) 11/27/16 02:03 Urine RBC 0 - 2 /hpf (0-2) 11/27/16 02:03 Urine WBC 0 - 2 /hpf (0-6) 11/27/16 02:03 Ur Epithelial Cells 0 - 2 /hpf (0-5) 11/27/16 02:03 Urine Bacteria Rare (NEG) 11/27/16 02:03 HIV 1&2 Ag/Ab, 4th Gen Nonreactive (Nonreactive) 11/27/16 11:20 Blood Type A POSITIVE 11/27/16 05:30 Antibody Screen Negative 11/27/16 05:30 BBK History Checked Patient has bt 11/27/16 05:30 - Hospital Course Hospital Course: 21M with pmh of Crohn's and multiple draining abdominal abscesses/fistulas likely 2/2 to his untreated Crohn's disease, was being treated for his infection. His wound cultures were growing VRE and fungus. He was on IV Vancomycin, Linezolid, Zosyn and Micafungin with symptoms improving. Today, pt. was feeling better compared to yesterday and wanted to leave. It was explained that he needed to stay in the hospital to receive appropriate IV anitbiotics to treat his infection and he signed out AMA. He was given a prescription for Augmentin and Zyvox before he left. - Date & Time of H&P Date of H&P: 11/30/16 Time of H&P: 07:15 Discharge Exam - Head Exam Head Exam: ATRAUMATIC, NORMOCEPHALIC - Eye Exam Eye Exam: EOMI - ENT Exam ENT Exam: Mucous Membranes Moist - Neck Exam Neck exam: Full Rom - Respiratory Exam Respiratory Exam: Clear to PA & Lateral, NORMAL BREATHING PATTERN, UNREMARKABLE - Cardiovascular Exam Cardiovascular Exam: REGULAR RHYTHM - GI/Abdominal Exam GI & Abdominal Exam: Normal Bowel Sounds, Unremarkable - Extremities Exam Extremities exam: full ROM - Back Exam Back exam: FULL ROM. absent: rash noted - Neurological Exam Neurological exam: Alert, Oriented x3 - Psychiatric Exam Psychiatric exam: Normal Affect, Normal Mood - Skin Skin Exam: Dry, Intact, Normal Color, Warm Discharge Plan - Follow Up Plan Condition: GOOD Disposition: AGAINST MEDICAL ADVICE Instructions: Abscess (GEN) <Alecia Heredia - Last Filed: 12/01/16 14:59> Provider - Provider Date of Admission: 11/28/16 15:25 Attending physician: Alecia Heredia MD Primary care physician: NO PRIMARY CARE PROVIDER Hospital Course - Lab Results Lab Results: Micro Results 11/29/16 01:20 Urine Urine Culture - Final No Growth (<1,000 CFU/ML) Most Recent Lab Values WBC 13.1 10^3/ul (4.5-11.0) H 11/29/16 07:00 RBC 3.72 10^6/uL (3.5-6.1) 11/29/16 07:00 Hgb 8.0 gm/dL (14.0-18.0) L 11/29/16 07:00 Hct 25.8 % (42.0-52.0) L 11/29/16 07:00 MCV 69.4 fL (80.0-105.0) L 11/29/16 07:00 MCH 21.5 pg (25.0-35.0) L 11/29/16 07:00 MCHC 31.0 g/dl (31.0-37.0) 11/29/16 07:00 RDW 19.1 % (11.5-14.5) H 11/29/16 07:00 Plt Count 790 10^3/uL (120.0-450.0) H* 11/29/16 07:00 MPV 8.1 fl (7.0-11.0) 11/29/16 07:00 Gran % 73.6 % (50.0-68.0) H 11/29/16 07:00 Lymph % (Auto) 13.5 % (22.0-35.0) L 11/29/16 07:00 [place] % (Auto) 12.2 % (1.0-6.0) H 11/29/16 07:00 Eos % (Auto) 0.5 % (1.5-5.0) L 11/29/16 07:00 Baso % (Auto) 0.2 % (0.0-3.0) 11/29/16 07:00 Gran # 9.63 (1.4-6.5) H 11/29/16 07:00 Lymph # 1.8 (1.2-3.4) 11/29/16 07:00 [place] # 1.6 (0.1-0.6) H 11/29/16 07:00 Eos # 0.1 (0.0-0.7) 11/29/16 07:00 Baso # 0.02 K/mm3 (0.0-2.0) 11/29/16 07:00 PT 12.3 Seconds (9.9-11.8) H 11/26/16 23:20 INR 1.14 (0.93-1.08) H 11/26/16 23:20 APTT 33.8 Seconds (23.7-30.8) H 11/26/16 23:20 Sodium 139 mmol/L (132-148) 11/29/16 07:00 Potassium 3.8 mmol/L (3.6-5.0) 11/29/16 07:00 Chloride 101 mmol/L (95-110) 11/29/16 07:00 Carbon Dioxide 26 mmol/L (21-33) 11/29/16 07:00 Anion Gap 16 (10-20) 11/29/16 07:00 BUN 4 mg/dL (7-21) L 11/29/16 07:00 Creatinine 0.8 mg/dL (0.5-1.4) 11/29/16 07:00 Est GFR ( Amer) > 60 11/29/16 07:00 Est GFR (Non-Af Amer) > 60 11/29/16 07:00 Random Glucose 80 mg/dL (70-110) 11/29/16 07:00 Calcium 8.5 mg/dL (8.4-10.5) 11/29/16 07:00 Phosphorus 3.7 mg/dL (2.5-4.5) 11/27/16 07:30 Magnesium 2.0 mg/dL (1.7-2.2) 11/27/16 07:30 Iron 13 ug/dL (45-180) L 11/27/16 07:30 TIBC 223 ug/dL (261-462) L 11/27/16 07:30 % Saturation 6 % (20-55) L 11/27/16 07:30 Ferritin 140.0 ng/mL 11/27/16 07:30 Total Bilirubin 0.3 mg/dL (0.2-1.3) 11/29/16 07:00 AST 35 U/L (15-59) 11/29/16 07:00 ALT 8 U/L (7-56) 11/29/16 07:00 Alkaline Phosphatase 83 U/L (38-133) 11/29/16 07:00 Total Protein 7.4 g/dL (5.8-8.3) 11/29/16 07:00 Albumin 3.2 g/dL (3.0-4.8) 11/29/16 07:00 Globulin 4.2 gm/dL 11/29/16 07:00 Albumin/Globulin Ratio 0.8 (1.1-1.8) L 11/29/16 07:00 Lipase 26 U/L (23-300) 11/26/16 23:20 Folate 17.5 ng/mL 11/27/16 07:30 Urine Color Yellow (YELLOW) 11/27/16 02:03 Urine Appearance Clear (CLEAR) 11/27/16 02:03 Urine pH 7.0 (4.7-8.0) 11/27/16 02:03 Ur Specific [place] 1.010 (1.005-1.035) 11/27/16 02:03 Urine Protein 30 mg/dL (<30 mg/dL) H 11/27/16 02:03 Urine Glucose (UA) Negative mg/dL (NEGATIVE) 11/27/16 02:03 Urine Ketones Negative mg/dL (NEGATIVE) 11/27/16 02:03 Urine Blood Negative (NEGATIVE) 11/27/16 02:03 Urine Nitrate Negative (NEGATIVE) 11/27/16 02:03 Urine Bilirubin Negative (NEGATIVE) 11/27/16 02:03 Urine Urobilinogen 0.2 E.U./dL (<1 E.U./dL) 11/27/16 02:03 Ur Leukocyte Esterase Negative [place]/uL (NEGATIVE) 11/27/16 02:03 Urine RBC 0 - 2 /hpf (0-2) 11/27/16 02:03 Urine WBC 0 - 2 /hpf (0-6) 11/27/16 02:03 Ur Epithelial Cells 0 - 2 /hpf (0-5) 11/27/16 02:03 Urine Bacteria Rare (NEG) 11/27/16 02:03 HIV 1&2 Ag/Ab, 4th Gen Nonreactive (Nonreactive) 11/27/16 11:20 Blood Type A POSITIVE 11/27/16 05:30 Antibody Screen Negative 11/27/16 05:30 BBK History Checked Patient has bt 11/27/16 05:30 Attending/Attestation - Attestation I have personally seen and examined this patient.: Yes I have fully participated in the care of the patient.: Yes I have reviewed all pertinent clinical information, including history, physical exam and plan: Yes Notes (Text): I have seen and examined patient with the resident. 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 Denies any new complaints. Requesting to be discharged today. States that he has a ride to go to [facility] today. No further work up planned by GI or surgery. Wound cultures are growing VRE. ID on board who recommended zosyn and zyvox however patient wants to leave AMA. Patient was advised to stay for IV antibiotics. All the risks and complications were explained to him and he verbalized understanding. Upon discharge patient will follow up with outpatient GI and Colorectal surgeon in [facility]. Dr Alecia Heredia
== END 2016-11-30 10:18 | disposition left against medical advice (07) | DRG 584 ==
LOC: ED 22:21 → ERH 11-27 04:15 → 5RSO 11-27 06:20 → OBSVTOIN 11-28 15:25
PROVIDERS: ADMIT Internal Medicine; ATTEND Hospitalist
DX: A41.9 Sepsis, unspecified organism (principal); K50.913 Crohn's disease, unspecified, with fistula; K65.1 Peritoneal abscess; L02.212 Cutaneous abscess of back [any part, except buttock and flank]; B95.2 Enterococcus as the cause of diseases classified elsewhere; Z16.21 Resistance to vancomycin; D50.9 Iron deficiency anemia, unspecified; Z76.5 Malingerer [conscious simulation]; Z91.14 Patient's other noncompliance with medication regimen; Z91.19 Patient's noncompliance with other medical treatment and regimen

== ENCOUNTER 2016-12-04 12:58 | Inpatient (IN) | payer MEDICAID ==
[2016-12-04 12:59] VITALS: BMI 17.8
[2016-12-04] MEDS ORDERED: Piperacillin/Tazobact 3.375 gm 100 ML IVPB STA (13:17)
[2016-12-04] MEDS ORDERED: Vancomycin 1gm in NS 250ml 250 ML IVPB STA (13:17)
--- NOTE | 2016-12-04 13:32 | ED PDOC ---
Arrival/HPI - General Chief Complaint: Abdominal Pain Time Seen by Provider: 12/04/16 12:59 Historian: Patient - History of Present Illness Narrative History of Present Illness (Text): 12/04/16 13:27 Ramirez Beavers is a 21 year old male, with a history of Crohn's disease, presents to the emergency department for evaluation of multiple purulent draining abscesses on abdomen and back. Patient was admitted to the hospital for these symptoms for IV antibiotics, but left against medical advice 11/30/16. Reports of pain to the surrounding area and is requesting pain medication. Also notes of subjective fever. Denies headache, difficulty breathing, nausea, vomiting, diarrhea, urinary symptoms or any other complaints at this time. Time/Duration: > month Symptom Onset: Gradual Symptom Course: Worsening Severity Level: Moderate Activities at Onset: Light Past Medical History - Provider Review Nursing Documentation Reviewed: Yes - Infectious Disease Hx of Infectious Diseases: None - Cardiac Hx Cardiac Disorders: No - Pulmonary Hx Respiratory Disorders: No - Neurological Hx Neurological Disorder: No - HEENT Hx HEENT Disorder: No - Renal Hx Renal Disorder: No - Endocrine/Metabolic Hx Endocrine Disorders: No - Hematological/Oncological Hx Blood Disorders: No - Integumentary Hx Dermatological Disorder: No - Musculoskeletal/Rheumatological Hx Musculoskeletal Disorders: No - Gastrointestinal Hx Crohn's Disease: Yes - Genitourinary/Gynecological Hx Genitourinary Disorders: No - Psychiatric Hx Psychophysiologic Disorder: No Hx Substance Use: No - Surgical History Other/Comment: Abd surg. for intraabd. abscesses x 7 last [place]2016 [place] [facility] [place] Anesthesia Hx Anesthesia: No Hx Anesthesia Reactions: No Hx Malignant Hyperthermia: No - Suicidal Assessment Feels Threatened In Home Enviroment: No Family/Social History - Physician Review Nursing Documentation Reviewed: Yes Family/Social History: No Known Family HX Smoking Status: Never Smoked Hx Alcohol Use: No Hx Substance Use: No Allergies/Home Meds Allergies/Adverse Reactions: Allergies FISH Allergy (Verified 12/04/16 13:24) RASH shellfish derived Adverse Reaction (Verified 12/04/16 13:24) ANGIOEDEMA Home Medications: Home Meds Medication Instructions Recorded Confirmed Cephalexin [cephalexin] 500 mg PO BID 12/04/16 12/04/16 Review of Systems - Review of Systems Constitutional: Fevers Respiratory: absent: SOB, Cough Cardiovascular: absent: Chest Pain Gastrointestinal: Abdominal Pain (pain surrounding drainining abscesses. Purulent draining abscesses in abdomen and back. ). absent: Diarrhea, Nausea, Vomiting Musculoskeletal: Back Pain Neurological: Normal Psychiatric: Normal Physical Exam Vital Signs Reviewed: Yes Vital Signs Temp Pulse Resp BP Pulse Ox 12/04/16 13:20 98 F 102 H 20 123/80 99 12/04/16 13:19 98.5 F 86 18 126/73 97 Temperature: Afebrile Blood Pressure: Normal Pulse: Regular Respiratory Rate: Normal Appearance: Positive for: Non-Toxic Pain Distress: None Mental Status: Positive for: Alert and Oriented X 3 - Systems Exam Head: Present: Atraumatic, Normocephalic Pupils: Present: PERRL Conjunctiva: Present: Normal Respiratory/Chest: Present: Clear to Auscultation, Good Air Exchange. No: Respiratory Distress, Accessory Muscle Use Cardiovascular: Present: Regular Rate and Rhythm, Normal S1, S2. No: Murmurs Abdomen: Present: Normal Bowel Sounds, Other (multiple purulent draining open wound around the umbilicus. ). No: Distention, Peritoneal Signs Neurological: Present: GCS=15, CN II-XII Intact, Speech Normal Skin: Present: Warm, Dry, Normal Color. No: Rashes Psychiatric: Present: Alert, Oriented x 3, Normal Insight, Normal Concentration Medical Decision Making ED Course and Treatment: 12/04/16 13:35 Impression: A 21 year old male who presents to the ed complaining of multiple purulent draining abscesses on abdomen and back. pt refusing ct imaging. noted recent ama Plan: -- Labs -- Toradol -- Vancomycin -- Zosyn -- Blood culture -- wound culture -- Urinalysis -- Reassess and disposition Progress Notes: 12/04/16 15:[address] scan. Case discussed with hospitalist, Dr. Heredia who accepts patient to hospital under his service. 12/04/16 17:35 - Lab Interpretations Lab Results: 12/04/16 14:00 12/04/16 14:00 Lab Results 12/04/16 14:00: WBC 9.6 D, RBC 3.88, Hgb 8.4 L, Hct 26.9 L, MCV 69.3 L, MCH 21.6 L, MCHC 31.2, RDW 20.0 H, Plt Count 962 H* D, MPV 7.9, Gran % 81.7 H, Lymph % (Auto) 11.0 L, [place] % (Auto) 6.5 H, Eos % (Auto) 0.6 L, Baso % (Auto) 0.2, Gran # 7.84 H, Lymph # 1.1 L, [place] # 0.6, Eos # 0.1, Baso # 0.02, PT 12.2 H , INR 1.13 H, APTT 31.9 H, Sodium 139, Potassium 3.6, Chloride 99, Carbon Dioxide 26, Anion Gap 18, BUN 4 L, Creatinine 0.8, Est GFR ( Amer) > 60, Est GFR (Non-Af Amer) > 60, Random Glucose 81, Calcium 9.3, Total Bilirubin 0.4 , AST 37, ALT 8, Alkaline Phosphatase 109, Total Protein 8.7 H, Albumin 3.9, Globulin 4.8, Albumin/Globulin Ratio 0.8 L, Lipase 52 - Medication Orders Current Medication Orders: Enoxaparin Sodium (Lovenox) 40 mg SC DAILY [facility] PRN Reason: Protocol Ferrous Sulfate (Feosol) 324 mg PO TID [facility] Last Admin: 12/04/16 17:34 Dose: 324 MG Hydromorphone HCl (Dilaudid) 0.5 mg IVP Q4H PRN PRN Reason: Pain, moderate (4-7) Last Admin: 12/04/16 16:26 Dose: 0.5 MG MAR Pain Assessment Document 12/04/16 16:26 ML (Rec: 12/04/16 16:27 ML [id number]) Pain Reassessment Is this a pain reassessment? No Presence of Pain Presence of Pain Yes Location Left, Right or Bilateral Bilateral Pain Location Body Site Abdomen Description Description Constant Intensity of Pain at present 9 IVP Administration Document 12/04/16 16:26 ML (Rec: 12/04/16 16:27 ML [id number]) Charges for Administration # of IVP Administrations 1 Sodium Chloride (Sodium Chloride 0.9%) 1,000 mls @ 100 mls/hr IV .Q10H [facility]YANT Micafungin Sodium 100 mg/ (Sodium Chloride) 100 mls @ 100 mls/hr IV DAILY [facility] PRN Reason: Protocol Stop: 12/15/16 10:01 Linezolid (Zyvox 600mg/300ml D5w) 300 mls @ 200 mls/hr IVPB Q12 [facility] PRN Reason: Protocol Stop: 12/18/16 22:01 Piperacillin Sod/Tazobactam Sod (Zosyn 3.375 In Ns 100ml) 100 mls @ 200 mls/hr IVPB Q6 [facility] PRN Reason: Protocol Stop: 12/18/16 18:01 Last Admin: 12/04/16 17:34 Dose: 200 MLS/HR eMAR Start Stop Document 12/04/16 17:34 MLK (Rec: 12/04/16 17:34 MLK [id number]) Intravenous Solution Start Date 12/04/16 Start Time 17:34 End Date 12/04/16 End time 18:04 Total Infusion Time 30 Ondansetron HCl (Zofran Inj) 4 mg IVP Q4H PRN PRN Reason: Nausea/Vomiting Last Admin: 12/04/16 16:26 Dose: 4 MG IVP Administration Document 12/04/16 16:26 ML (Rec: 12/04/16 16:26 ML [id number]) Charges for Administration # of IVP Administrations 1 Pantoprazole Sodium (Protonix Inj) 40 mg IVP DAILY [facility] Discontinued Medications Piperacillin Sod/Tazobactam Sod (Zosyn 3.375 In Ns 100ml) 100 mls @ 200 mls/hr IVPB STAT STA PRN Reason: Protocol Stop: 12/04/16 13:46 Last Admin: 12/04/16 14:15 Dose: 200 MLS/HR eMAR Start Stop Document 12/04/16 14:15 BONITA (Rec: 12/04/16 14:19 BONITA [id number]) Intravenous Solution Start Date 12/04/16 Start Time 14:15 End Date 12/04/16 End time 14:45 Total Infusion Time 30 Vancomycin HCl (Vancomycin 1gm) 250 mls @ 167 mls/hr IVPB STAT STA PRN Reason: Protocol Stop: 12/04/16 14:46 Last Admin: 12/04/16 15:00 Dose: 167 MLS/HR eMAR Start Stop Document 12/04/16 15:00 BONITA (Rec: 12/04/16 15:04 BONITA [id number]) Intravenous Solution Start Date 12/04/16 Start Time 15:00 End Date 04/02/17 End time 16:30 Total Infusion Time 90 Ketorolac Tromethamine (Toradol) 30 mg IVP STAT STA Stop: 12/04/16 13:20 Last Admin: 12/04/16 14:10 Dose: 30 MG IVP Administration Document 12/04/16 14:10 BONITA (Rec: 12/04/16 14:19 BONITA [id number]) Charges for Administration # of IVP Administrations 1 - Scribe Statement The provider has reviewed the documentation as recorded by the James Agrawal Provider Attestation: All medical record entries made by the James were at my direction and personally dictated by me. I have reviewed the chart and agree that the record accurately reflects my personal performance of the history, physical exam, medical decision making, and the department course for this patient. I have also personally directed, reviewed, and agree with the discharge instructions and disposition. Disposition/Present on Arrival - Present on Arrival Any Indicators Present on Arrival: No History of DVT/PE: No History of Uncontrolled Diabetes: No Urinary Catheter: No History of Decub. Ulcer: No History Surgical Site Infection Following: None - Disposition Have Diagnosis and Disposition been Completed?: Yes Diagnosis: Intra-abdominal abscess Disposition: HOSPITALIZED Disposition Time: 01:00 Patient Problems: Current Active Problems Problem Status Diagnosed Abdominal pain Acute Crohn's disease Acute Intra-abdominal abscess Acute Condition: FAIR
[2016-12-04 14:37] LABS: ADD MANUAL DIFF? NO
[2016-12-04 14:52] LABS: BASO # 0.02 K/mm3 (0.0-2.0); BASO % 0.2 % (0.0-3.0); EOS # 0.1 (0.0-0.7); EOS % 0.6 % (1.5-5.0); GRAN # 7.84 (1.4-6.5); GRAN % 81.7 % (50.0-68.0); HEMATOCRIT 26.9 % (42.0-52.0); LYMPH # 1.1 (1.2-3.4); MEAN CELL VOLUME 69.3 fL (80.0-105.0); MEAN CORPUSCULAR HEMOGLOBIN 21.6 pg (25.0-35.0); MEAN CORPUSCULAR HGB CONC 31.2 g/dl (31.0-37.0); MEAN PLATELET VOLUME 7.9 fl (7.0-11.0); MONO # 0.6 (0.1-0.6); MONO % 6.5 % (1.0-6.0); WHITE BLOOD COUNT 9.6 10^3/ul (4.5-11.0)
[2016-12-04 14:56] LABS: ALB/GLOB RATIO 0.8 (1.1-1.8); ALKALINE PHOSPHATASE 109 U/L (38-133); ALT/SGPT 8 U/L (7-56); AST/SGOT 37 U/L (15-59); BILIRUBIN,TOTAL 0.4 mg/dL (0.2-1.3); BLOOD UREA NITROGEN 4 mg/dL (7-21); CALCIUM 9.3 mg/dL (8.4-10.5); CARBON DIOXIDE 26 mmol/L (21-33); CHLORIDE 99 mmol/L (98-107); GFR AFRICAN-AMERICAN > 60; GLUCOSE,RANDOM 81 mg/dL (70-110); LIPASE 52 U/L (23-300); POTASSIUM 3.6 mmol/L (3.6-5.0); SODIUM 139 mmol/L (132-148); TOTAL PROTEIN 8.7 g/dL (5.8-8.3)
[2016-12-04 14:57] LABS: INR 1.13 (0.93-1.08); PARTIAL THROMBOPLASTIN TIME 31.9 Seconds (23.7-30.8); PLATELET COUNT 962 10^3/uL (120.0-450.0)
[2016-12-04] MEDS: HYDROmorphone 0.5 mg/0.5 ml ISec IVP PRN ×2 (16:26→20:15)
[2016-12-04] MEDS: Piperacillin/Tazobact 3.375 gm 100 ML IVPB SCH ×2 (17:34→23:29)
[2016-12-04] MEDS ORDERED: Piperacillin/Tazobact 3.375 gm 100 ML IVPB SCH (18:00)
--- NOTE | 2016-12-04 18:00 | CP.PCM.HP ---
History of Present Illness - History of Present Illness History of Present Illness: 21 y/o M with PMH of Crohn's disease, iron-def anemia, and drug-seeking behavior presents to the ED with abdominal pain for the past 4 days. Pt was recently admitted for multiple microabscesses in lower right pelvic area, culture positive for VRE and Melissa albicans. Pt was placed on abx at time, but signed out AMA. Pt was told at that time to follow up with [facility], but did not. Pt returns today with right sided abdominal pain that has been worsening over the past 4 days. Pt states he has not taken any medication for it. Pt states pain is made worse by movement. He reports having multiple bouts of diarrhea, nonbloody. Pt denies CP, SOB, N/V, headache, fever, chills, dizziness , dysuria. PMH: As above PSH: Abdominal surgery x2, I and D FH: HTN, Arthritis Allergies: Fish, shellfish Meds: None Present on Admission - Present on Admission Any Indicators Present on Admission: No Review of Systems - Constitutional Constitutional: Fatigue, Lethargy - EENT Eyes: absent: Blurred Vision, Change in Vision Nose/Mouth/Throat: absent: Nasal Congestion, Nasal Discharge - Cardiovascular Cardiovascular: absent: Chest Pain, Irregular Heart Rhythm - Respiratory Respiratory: absent: Cough, Dyspnea - Gastrointestinal Gastrointestinal: Abdominal Pain, Diarrhea. absent: Vomiting - Genitourinary Genitourinary: absent: Dysuria, Hematuria - Integumentary Integumentary: absent: New Lesions, Rash - Neurological Neurological: absent: Syncope, Tingling, Tremor - Psychiatric Psychiatric: absent: Anxiety, Depression - Hematologic/Lymphatic Hematologic: absent: Easy Bleeding, Easy Bruising Past Patient History - Infectious Disease Hx of Infectious Diseases: None - Past Social History Smoking Status: Never Smoked - CARDIAC Hx Cardiac Disorders: No - PULMONARY Hx Respiratory Disorders: No - NEUROLOGICAL Hx Neurological Disorder: No - HEENT Hx HEENT Problems: No - RENAL Hx Chronic Kidney Disease: No - ENDOCRINE/METABOLIC Hx Endocrine Disorders: No - HEMATOLOGICAL/ONCOLOGICAL Hx Blood Disorders: No - INTEGUMENTARY Hx Dermatological Problems: No - MUSCULOSKELETAL/RHEUMATOLOGICAL Hx Musculoskeletal Disorders: No - GASTROINTESTINAL Hx Crohn's Disease: Yes - GENITOURINARY/GYNECOLOGICAL Hx Genitourinary Disorders: No - PSYCHIATRIC Hx Psychophysiologic Disorder: No Hx Substance Use: No - SURGICAL HISTORY Other/Comment: Abd surg. for intraabd. abscesses x 7 last surgery 10/2016 at [facility] [place] - ANESTHESIA Hx Anesthesia: No Hx Anesthesia Reactions: No Hx Malignant Hyperthermia: No Meds Allergies/Adverse Reactions: Allergies Allergy/AdvReac Type Severity Reaction Status Date / Time FISH Allergy RASH Verified 12/04/16 13:24 shellfish derived AdvReac ANGIOEDEMA Verified 12/04/16 13:24 Physical Exam - Constitutional Appears: Well, No Acute Distress - Head Exam Head Exam: ATRAUMATIC, NORMAL INSPECTION, NORMOCEPHALIC - Eye Exam Eye Exam: EOMI, Normal appearance, PERRL - ENT Exam ENT Exam: Mucous Membranes Moist, Normal Exam - Neck Exam Neck exam: Positive for: Normal Inspection. Negative for: Lymphadenopathy - Respiratory Exam Respiratory Exam: Clear to Auscultation Bilateral, NORMAL BREATHING PATTERN. absent: Rhonchi, Wheezes - Cardiovascular Exam Cardiovascular Exam: RRR, +S1, +S2 - GI/Abdominal Exam GI & Abdominal Exam: Normal Bowel Sounds, Soft, Tenderness. absent: Distended, Guarding Additional comments: Tenderness to palpation. Open wound, no draining. - Extremities Exam Extremities exam: Positive for: normal inspection. Negative for: calf tenderness, pedal edema - Neurological Exam Neurological exam: Alert, CN II-XII Intact, Oriented x3 - Psychiatric Exam Psychiatric exam: Normal Affect, Normal Mood - Skin Skin Exam: Normal Color, Warm Additional comments: Open wound on left lower abdomen. Results - Vital Signs Recent Vital Signs: Last Vital Signs Temp 98 F 12/04/16 13:20 Pulse 102 H 12/04/16 13:20 Resp 20 12/04/16 13:20 BP 123/80 12/04/16 13:20 Pulse Ox 99 12/04/16 13:20 - Labs Result Diagrams: 12/04/16 14:00 12/04/16 14:00 Assessment & Plan - Assessment and Plan (Free Text) Plan: 21 y/o M with PMH of Crohn's disease, iron-def anemia, and drug-seeking behavior presents to the ED with abdominal pain for the past 4 days. Pt recently admitted for same complaints and was started on appropriate abx. Pt will have cultures drawn and will continue abx at this time. ID is consulted. 1. Pelvic Microabscesses/Fistula - Wound culture - Blood culture - Procal ordered - Continue ABX: Linezolid, Zosyn, Micafungin, - IVF - Pain control Dilaudid 0.5 mg q4h - ID consulted, Dr. Cleveland 2. Iron-def anemia - Continue IV iron - Monitor Hg - Monitor for constipation 3. PPX - Zofran - Protonix - Dilaudid - Lovenox Seen, reviewed, and discussed with attending. German, PGY-1
[2016-12-04] MEDS: Sodium Chloride 0.9% 1,000 ML IV SCH (18:53)
[2016-12-04] MEDS: Oxycodone/Acetaminophen 5/325 mg Tab PO PRN (21:03)
[2016-12-04] MEDS ORDERED: Linezolid 600 mg in D5W 300 ml 300 ML IVPB SCH (22:00)
[2016-12-04] MEDS: Linezolid 600 mg in D5W 300 ml 300 ML IVPB SCH (22:09)
[2016-12-05] MEDS: HYDROmorphone 0.5 mg/0.5 ml ISec IVP PRN ×6 (00:33→19:58)
[2016-12-05] MEDS: Piperacillin/Tazobact 3.375 gm 100 ML IVPB SCH ×3 (05:23→18:53)
[2016-12-05] MEDS: Oxycodone/Acetaminophen 5/325 mg Tab PO PRN ×3 (06:06→21:09)
[2016-12-05 06:32] LABS: ADD MANUAL DIFF? NO
[2016-12-05 06:47] LABS: BASO # 0.02 K/mm3 (0.0-2.0); BASO % 0.2 % (0.0-3.0); EOS # 0.1 (0.0-0.7); GRAN # 8.88 (1.4-6.5); GRAN % 78.4 % (50.0-68.0); HEMATOCRIT 25.7 % (42.0-52.0); LYMPH # 1.2 (1.2-3.4); LYMPH % 10.9 % (22.0-35.0); MEAN CELL VOLUME 69.8 fL (80.0-105.0); MEAN CORPUSCULAR HEMOGLOBIN 21.5 pg (25.0-35.0); MEAN CORPUSCULAR HGB CONC 30.7 g/dl (31.0-37.0); MEAN PLATELET VOLUME 7.8 fl (7.0-11.0); MONO # 1.1 (0.1-0.6); MONO % 9.5 % (1.0-6.0); RED CELL DISTRIBUTION WIDTH 20.2 % (11.5-14.5); WHITE BLOOD COUNT 11.3 10^3/ul (4.5-11.0)
[2016-12-05 06:58] LABS: BLOOD UREA NITROGEN 7 mg/dL (7-21); CALCIUM 8.7 mg/dL (8.4-10.5); CARBON DIOXIDE 34 mmol/L (21-33); CHLORIDE 99 mmol/L (95-110); GFR AFRICAN-AMERICAN > 60; GLUCOSE,RANDOM 93 mg/dL (70-110); POTASSIUM 3.8 mmol/L (3.6-5.0); SODIUM 143 mmol/L (132-148)
[2016-12-05 07:43] LABS: PLATELET COUNT 873 10^3/uL (120.0-450.0)
[2016-12-05] MEDS ORDERED: Micafungin 100 MG in Sodium Chloride 0.9% 100 ML IV SCH (10:00)
[2016-12-05] MEDS: Enoxaparin 40 mg Syringe SC SCH ×2 (10:16→10:30)
[2016-12-05] MEDS: Micafungin 100 MG in Sodium Chloride 0.9% 100 ML IV SCH (10:17)
[2016-12-05] MEDS: Linezolid 600 mg in D5W 300 ml 300 ML IVPB SCH ×2 (10:17→22:01)
--- NOTE | 2016-12-05 13:31 | CP.PCM.PN ---
<VazquezCallum torres - Last Filed: 12/05/16 18:30> Subjective - Date & Time of Evaluation Date of Evaluation: 12/05/16 Time of Evaluation: 07:10 - Subjective Subjective: 21 y/o M with PMH of recent multiple abdominal abscesses/fistulas likely 2/2 to Crohn's disease that were VRE/Melissa positive, iron-def anemia, and possible drug-seeking behavior presented to this hospital with right sided abdominal pain that has been worsening over the past 4 days. During his prior admission(4 days ago) he was on IV antibiotics and left AMA and was given prescriptions for antibiotics. Pt was told at that time to follow up with [facility], but did not. Pt states he has not taken any medication for it. Pt states pain is made worse by movement. Today, pt. is resting comfortably, in no acute distress and did not have a bowel movement last night or today. He denies headaches, fevers, chills, chest pain, or difficulty breathing. Objective - Vital Signs/Intake and Output Vital Signs (last 24 hours): Temp Pulse Resp BP Pulse Ox 97.9 F 96 H 20 107/63 99 12/05/16 06:00 12/05/16 06:00 12/05/16 06:00 12/05/16 06:00 12/05/16 06:00 Intake and Output: 12/05/16 12/05/16 06:59 18:59 Intake Total 1780 1280 Output Total 0 Balance 1780 1280 - Medications Medications: Current Medications Enoxaparin Sodium (Lovenox) 40 mg SC DAILY [facility] PRN Reason: Protocol Last Admin: 12/05/16 10:30 Dose: Not Given Ferrous Sulfate (Feosol) 324 mg PO TID [facility] Last Admin: 12/05/16 10:17 Dose: 324 mg Hydromorphone HCl (Dilaudid) 0.5 mg IVP Q4H PRN PRN Reason: Pain, moderate (4-7) Last Admin: 12/05/16 12:27 Dose: 0.5 mg Sodium Chloride (Sodium Chloride 0.9%) 1,000 mls @ 100 mls/hr IV .Q10H [facility] Last Admin: 12/04/16 18:53 Dose: 100 mls/hr Micafungin Sodium 100 mg/ (Sodium Chloride) 100 mls @ 100 mls/hr IV DAILY [facility] PRN Reason: Protocol Stop: 12/15/16 10:01 Last Admin: 12/05/16 10:17 Dose: 100 mls/hr Linezolid (Zyvox 600mg/300ml D5w) 300 mls @ 200 mls/hr IVPB Q12 [facility] PRN Reason: Protocol Stop: 12/18/16 22:01 Last Admin: 12/05/16 10:17 Dose: 200 mls/hr Piperacillin Sod/Tazobactam Sod (Zosyn 3.375 In Ns 100ml) 100 mls @ 200 mls/hr IVPB Q6 [facility] PRN Reason: Protocol Stop: 12/18/16 18:01 Last Admin: 12/05/16 12:26 Dose: 200 mls/hr Ondansetron HCl (Zofran Inj) 4 mg IVP Q4H PRN PRN Reason: Nausea/Vomiting Last Admin: 12/05/16 00:33 Dose: 4 mg Oxycodone/Acetaminophen (Percocet 5/325 Mg Tab) 1 tab PO Q6H PRN PRN Reason: Pain, moderate (4-7) Stop: 12/07/16 20:19 Last Admin: 12/05/16 06:06 Dose: 1 tab Pantoprazole Sodium (Protonix Inj) 40 mg IVP DAILY [facility] Last Admin: 12/05/16 10:16 Dose: 40 mg - Labs Labs: 12/05/16 06:00 12/05/16 06:00 PT 12.2 Seconds (9.9-11.8) H 12/04/16 14:00 INR 1.13 (0.93-1.08) H 12/04/16 14:00 APTT 31.9 Seconds (23.7-30.8) H 12/04/16 14:00 - Constitutional Appears: Non-toxic, No Acute Distress - Head Exam Head Exam: ATRAUMATIC, NORMOCEPHALIC - Eye Exam Eye Exam: EOMI - ENT Exam ENT Exam: Mucous Membranes Moist - Neck Exam Neck Exam: Full ROM. absent: Lymphadenopathy - Respiratory Exam Respiratory Exam: Clear to Ausculation Bilateral, NORMAL BREATHING PATTERN. absent: Rhonchi, Wheezes - Cardiovascular Exam Cardiovascular Exam: REGULAR RHYTHM, RRR, +S1, +S2. absent: JVD - GI/Abdominal Exam GI & Abdominal Exam: Guarding, Soft, Tenderness, Normal Bowel Sounds. absent: Rigid Additional comments: multiple draining abdominal abscesses in RLQ - Back Exam Back Exam: CVA tenderness (R). absent: rash noted - Neurological Exam Neurological Exam: Alert, Awake - Psychiatric Exam Psychiatric exam: Normal Affect, Normal Mood - Skin Skin Exam: Dry, Intact, Normal Color, Warm Assessment and Plan - Assessment and Plan (Free Text) Assessment: 21 y/o M with PMH of Crohn's disease, iron-def anemia, and possible drug- seeking behavior presents to the ED with abdominal pain for the past 4 days. Pt recently admitted for same complaints from previous visit 4 days ago and was started on IV abx. Pt will have cultures drawn and will continue abx at this time. ID is consulted. Plan: 1. Pelvic Microabscesses/Fistula - Wound culture - rare gram + in chains - Blood culture - received - Procal negative - Continue ABX: Linezolid, Zosyn, Micafungin, - IVF - Pain control Dilaudid 0.5 mg q4h & Percocet 5/325 q6prn - ID consulted, Dr. Cleveland -help appreciated 2. Iron-def anemia - Continue PO iron Feosol - Monitor Hgb, currently 7.9 - Monitor for constipation 3. PPX - Zofran - Protonix - Dilaudid - Lovenox Seen, reviewed, and discussed with attending. <José Ayoub - Last Filed: 12/06/16 15:17> Objective - Vital Signs/Intake and Output Vital Signs (last 24 hours): Temp Pulse Resp BP Pulse Ox 98.8 F 78 18 116/75 100 12/06/16 06:00 12/06/16 06:00 12/06/16 06:00 12/06/16 06:00 12/06/16 06:00 Intake and Output: 12/06/16 12/06/16 06:59 18:59 Intake Total 420 Output Total 2 Balance 418 - Medications Medications: Current Medications Enoxaparin Sodium (Lovenox) 40 mg SC DAILY [facility] PRN Reason: Protocol Last Admin: 12/06/16 09:51 Dose: Not Given Ferrous Sulfate (Feosol) 324 mg PO TID [facility] Last Admin: 12/06/16 09:47 Dose: 324 mg Hydromorphone HCl (Dilaudid) 0.5 mg IVP Q4H PRN PRN Reason: Pain, moderate (4-7) Last Admin: 12/06/16 08:21 Dose: 0.5 mg Sodium Chloride (Sodium Chloride 0.9%) 1,000 mls @ 100 mls/hr IV .Q10H [facility] Last Admin: 12/06/16 04:51 Dose: Not Given Micafungin Sodium 100 mg/ (Sodium Chloride) 100 mls @ 100 mls/hr IV DAILY [facility] PRN Reason: Protocol Stop: 12/15/16 10:01 Last Admin: 12/06/16 10:35 Dose: 100 mls/hr Linezolid (Zyvox 600mg/300ml D5w) 300 mls @ 200 mls/hr IVPB Q12 [facility] PRN Reason: Protocol Stop: 12/18/16 22:01 Last Admin: 12/06/16 12:10 Dose: 200 mls/hr Piperacillin Sod/Tazobactam Sod (Zosyn 3.375 In Ns 100ml) 100 mls @ 200 mls/hr IVPB Q6 [facility] PRN Reason: Protocol Stop: 12/18/16 18:01 Last Admin: 12/06/16 13:38 Dose: 200 mls/hr Ondansetron HCl (Zofran Inj) 4 mg IVP Q4H PRN PRN Reason: Nausea/Vomiting Last Admin: 12/05/16 00:33 Dose: 4 mg Oxycodone/Acetaminophen (Percocet 5/325 Mg Tab) 1 tab PO Q4H PRN PRN Reason: Pain, moderate (4-7) Stop: 12/07/16 20:19 Last Admin: 12/06/16 13:00 Dose: 1 tab Pantoprazole Sodium (Protonix Inj) 40 mg IVP DAILY [facility] Last Admin: 12/06/16 09:47 Dose: 40 mg - Labs Labs: 12/06/16 06:45 12/06/16 06:45 PT 12.2 Seconds (9.9-11.8) H 12/04/16 14:00 INR 1.13 (0.93-1.08) H 12/04/16 14:00 APTT 31.9 Seconds (23.7-30.8) H 12/04/16 14:00 Assessment and Plan - Assessment and Plan (Free Text) Assessment: attending note; Patient seen and examined with resident. Patient is a 21 year old male with a pmh of Crohn's ,multiple surgeries, recurrent abscess drainage, Fistula and iron deficiency anemia Is admitted for recurrent nonhealing Crohn's/fistula infection. Patient recently signed AMA. cultures grew VRE. Currently on Zyvox, Zosyn and Micafungin. chronic iron deficiency anemia; Got IV iron during last admission. upon discharge the patient will follow-up with PMD . patient needs close follow-up with GI and colorectal surgery as outpatient. Attending/Attestation - Attestation I have personally seen and examined this patient.: Yes I have fully participated in the care of the patient.: Yes I have reviewed all pertinent clinical information, including history, physical exam and plan: Yes
[2016-12-05] MEDS: Sodium Chloride 0.9% 1,000 ML IV SCH (13:33)
--- NOTE | 2016-12-05 17:49 | CP.PCM.CON ---
History of Present Illness - History of Present Illness History of Present Illness: 21 year old male with PMH of poorly-controlled Crohn's disease due to non- compliance was admitted last week in [facility] because of microabscesses in the abdomen and fistulas. He grew VRE and Melissa then from the fistulous tracts. He signed out against medical advice and did not complete his antibiotic course. He now comes back complaining of worsening abdominal pain for the past 4-5 days, associated with nausea as well as episodes of diarrhea. The patient denies fever or chills, no vomiting, no headache or dizziness, no chest pain, no SOB, no cough or colds, no sore throat, no penile discharge. Infectious diseases consult is requested to further evaluate and manage. Review of Systems - Review of Systems All systems: reviewed and no additional remarkable complaints except (as per HPI ) Past Patient History - Infectious Disease Hx of Infectious Diseases: None - Past Medical History & Family History Past Medical History?: Yes Past Family History: Reviewed and not pertinent - Past Social History Smoking Status: Former Smoker - CARDIAC Hx Cardiac Disorders: No - PULMONARY Hx Respiratory Disorders: No - NEUROLOGICAL Hx Neurological Disorder: No - HEENT Hx HEENT Problems: No - RENAL Hx Chronic Kidney Disease: No - ENDOCRINE/METABOLIC Hx Endocrine Disorders: No - HEMATOLOGICAL/ONCOLOGICAL Hx Blood Disorders: No - INTEGUMENTARY Hx Dermatological Problems: No - MUSCULOSKELETAL/RHEUMATOLOGICAL Hx Falls: No - GASTROINTESTINAL Hx Crohn's Disease: Yes - GENITOURINARY/GYNECOLOGICAL Hx Genitourinary Disorders: No - PSYCHIATRIC Hx Psychophysiologic Disorder: No - SURGICAL HISTORY Other/Comment: Abd surg. for intraabd. abscesses x 7 last surgery 10/2016 [place] [facility] - ANESTHESIA Hx Anesthesia: No Hx Anesthesia Reactions: No Hx Malignant Hyperthermia: No Meds Allergies/Adverse Reactions: Allergies Allergy/AdvReac Type Severity Reaction Status Date / Time FISH Allergy RASH Verified 12/04/16 13:24 shellfish derived AdvReac ANGIOEDEMA Verified 12/04/16 13:24 - Medications Medications: Current Medications Enoxaparin Sodium (Lovenox) 40 mg SC DAILY [facility] PRN Reason: Protocol Ferrous Sulfate (Feosol) 324 mg PO TID [facility] Last Admin: 12/04/16 17:34 Dose: 324 mg Hydromorphone HCl (Dilaudid) 0.5 mg IVP Q4H PRN PRN Reason: Pain, moderate (4-7) Last Admin: 12/05/16 04:11 Dose: 0.5 mg Sodium Chloride (Sodium Chloride 0.9%) 1,000 mls @ 100 mls/hr IV .Q10H [facility] Last Admin: 12/04/16 18:53 Dose: 100 mls/hr Micafungin Sodium 100 mg/ (Sodium Chloride) 100 mls @ 100 mls/hr IV DAILY [facility] PRN Reason: Protocol Stop: 12/15/16 10:01 Linezolid (Zyvox 600mg/300ml D5w) 300 mls @ 200 mls/hr IVPB Q12 [facility] PRN Reason: Protocol Stop: 12/18/16 22:01 Last Admin: 12/04/16 22:09 Dose: 200 mls/hr Piperacillin Sod/Tazobactam Sod (Zosyn 3.375 In Ns 100ml) 100 mls @ 200 mls/hr IVPB Q6 [facility] PRN Reason: Protocol Stop: 12/18/16 18:01 Last Admin: 12/05/16 05:23 Dose: 200 mls/hr Ondansetron HCl (Zofran Inj) 4 mg IVP Q4H PRN PRN Reason: Nausea/Vomiting Last Admin: 12/05/16 00:33 Dose: 4 mg Oxycodone/Acetaminophen (Percocet 5/325 Mg Tab) 1 tab PO Q6H PRN PRN Reason: Pain, moderate (4-7) Stop: 12/07/16 20:19 Last Admin: 12/05/16 06:06 Dose: 1 tab Pantoprazole Sodium (Protonix Inj) 40 mg IVP DAILY [facility] Physical Exam - Constitutional Appears: Non-toxic, No Acute Distress - Head Exam Head Exam: NORMAL INSPECTION - Neck Exam Neck exam: Negative for: Lymphadenopathy, Meningismus - Respiratory Exam Respiratory Exam: Decreased Breath Sounds - Cardiovascular Exam Cardiovascular Exam: +S1, +S2 - GI/Abdominal Exam GI & Abdominal Exam: Soft, Tenderness (mild). 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
[2016-12-06] MEDS: HYDROmorphone 0.5 mg/0.5 ml ISec IVP PRN ×6 (00:39→20:00)
[2016-12-06] MEDS: Piperacillin/Tazobact 3.375 gm 100 ML IVPB SCH ×4 (00:40→16:59)
[2016-12-06] MEDS: Oxycodone/Acetaminophen 5/325 mg Tab PO PRN ×5 (03:18→21:05)
[2016-12-06] MEDS: Sodium Chloride 0.9% 1,000 ML IV SCH ×4 (04:47→21:07)
[2016-12-06 07:02] LABS: ADD MANUAL DIFF? NO
[2016-12-06 07:17] LABS: BASO # 0.01 K/mm3 (0.0-2.0); BASO % 0.1 % (0.0-3.0); EOS # 0.2 (0.0-0.7); GRAN # 5.93 (1.4-6.5); GRAN % 73.1 % (50.0-68.0); HEMATOCRIT 26.9 % (42.0-52.0); LYMPH % 12.5 % (22.0-35.0); MEAN CELL VOLUME 70.2 fL (80.0-105.0); MEAN CORPUSCULAR HEMOGLOBIN 21.4 pg (25.0-35.0); MEAN CORPUSCULAR HGB CONC 30.5 g/dl (31.0-37.0); MEAN PLATELET VOLUME 7.8 fl (7.0-11.0); MONO # 0.9 (0.1-0.6); MONO % 11.3 % (1.0-6.0); RED CELL DISTRIBUTION WIDTH 20.2 % (11.5-14.5); WHITE BLOOD COUNT 8.1 10^3/ul (4.5-11.0)
[2016-12-06 07:18] LABS: PLATELET COUNT 779 10^3/uL (120.0-450.0)
[2016-12-06 07:38] LABS: BLOOD UREA NITROGEN 6 mg/dL (7-21); CARBON DIOXIDE 28 mmol/L (21-33); CHLORIDE 102 mmol/L (98-107); GFR AFRICAN-AMERICAN > 60; GLUCOSE,RANDOM 85 mg/dL (70-110); POTASSIUM 3.9 mmol/L (3.6-5.0); SODIUM 137 mmol/L (132-148)
[2016-12-06] MEDS: Enoxaparin 40 mg Syringe SC SCH (09:51)
[2016-12-06] MEDS: Micafungin 100 MG in Sodium Chloride 0.9% 100 ML IV SCH (10:35)
--- NOTE | 2016-12-06 11:24 | CP.PCM.PN ---
<VazquezCallum torres - Last Filed: 12/06/16 22:13> Subjective - Date & Time of Evaluation Date of Evaluation: 12/06/16 Time of Evaluation: 07:40 - Subjective Subjective: 21 y/o M with PMH of recent multiple abdominal abscesses/fistulas likely 2/2 to Crohn's disease that were VRE/Melissa positive, iron-def anemia, curently on IV antibiotcs. He was previously admitted to this hospital last week for the same presentation. Today, pt. is resting comfortably, in no acute distress. He complains of headache and increased back pain. He denies fevers, chills, chest pain, or difficulty breathing, nausea, vomiting or diarrhea. Objective - Vital Signs/Intake and Output Vital Signs (last 24 hours): Temp Pulse Resp BP Pulse Ox 98.8 F 78 18 116/75 100 12/06/16 06:00 12/06/16 06:00 12/06/16 06:00 12/06/16 06:00 12/06/16 06:00 Intake and Output: 12/06/16 12/06/16 06:59 18:59 Intake Total 420 Output Total 2 Balance 418 - Medications Medications: Current Medications Enoxaparin Sodium (Lovenox) 40 mg SC DAILY [facility] PRN Reason: Protocol Last Admin: 12/06/16 09:51 Dose: Not Given Ferrous Sulfate (Feosol) 324 mg PO TID [facility] Last Admin: 12/06/16 09:47 Dose: 324 mg Hydromorphone HCl (Dilaudid) 0.5 mg IVP Q4H PRN PRN Reason: Pain, moderate (4-7) Last Admin: 12/06/16 08:21 Dose: 0.5 mg Sodium Chloride (Sodium Chloride 0.9%) 1,000 mls @ 100 mls/hr IV .Q10H [facility] Last Admin: 12/06/16 04:51 Dose: Not Given Micafungin Sodium 100 mg/ (Sodium Chloride) 100 mls @ 100 mls/hr IV DAILY [facility] PRN Reason: Protocol Stop: 12/15/16 10:01 Last Admin: 12/06/16 10:35 Dose: 100 mls/hr Linezolid (Zyvox 600mg/300ml D5w) 300 mls @ 200 mls/hr IVPB Q12 [facility] PRN Reason: Protocol Stop: 12/18/16 22:01 Last Admin: 12/05/16 22:01 Dose: 200 mls/hr Piperacillin Sod/Tazobactam Sod (Zosyn 3.375 In Ns 100ml) 100 mls @ 200 mls/hr IVPB Q6 [facility] PRN Reason: Protocol Stop: 12/18/16 18:01 Last Admin: 12/06/16 06:37 Dose: 200 mls/hr Ondansetron HCl (Zofran Inj) 4 mg IVP Q4H PRN PRN Reason: Nausea/Vomiting Last Admin: 12/05/16 00:33 Dose: 4 mg Oxycodone/Acetaminophen (Percocet 5/325 Mg Tab) 1 tab PO Q4H PRN PRN Reason: Pain, moderate (4-7) Stop: 12/07/16 20:19 Pantoprazole Sodium (Protonix Inj) 40 mg IVP DAILY [facility] Last Admin: 12/06/16 09:47 Dose: 40 mg - Labs Labs: 12/06/16 06:45 12/06/16 06:45 PT 12.2 Seconds (9.9-11.8) H 12/04/16 14:00 INR 1.13 (0.93-1.08) H 12/04/16 14:00 APTT 31.9 Seconds (23.7-30.8) H 12/04/16 14:00 - Constitutional Appears: Non-toxic, No Acute Distress - Head Exam Head Exam: ATRAUMATIC, NORMOCEPHALIC - Eye Exam Eye Exam: EOMI - ENT Exam ENT Exam: Mucous Membranes Moist - Neck Exam Neck Exam: Full ROM. absent: Lymphadenopathy - Respiratory Exam Respiratory Exam: Clear to Ausculation Bilateral, NORMAL BREATHING PATTERN. absent: Rhonchi, Wheezes - Cardiovascular Exam Cardiovascular Exam: REGULAR RHYTHM, +S1, +S2. absent: JVD - GI/Abdominal Exam GI & Abdominal Exam: Soft, Tenderness, Normal Bowel Sounds Additional comments: multiple draining purulent abscesses in RLQ. - Extremities Exam Extremities Exam: Full ROM. absent: Joint Swelling, Pedal Edema - Back Exam Back Exam: CVA tenderness (R) Additional comments: purulent draining wound on right flank area - Neurological Exam Neurological Exam: Alert, Awake, CN II-XII Intact, Oriented x3 - Psychiatric Exam Psychiatric exam: Normal Affect, Normal Mood - Skin Skin Exam: Dry, Intact, Normal Color, Warm Assessment and Plan - Assessment and Plan (Free Text) Assessment: 21 y/o M with PMH of Crohn's disease, iron-def anemia, on IV abx for multiple abdominal abscesses. Plan: 1. Pelvic Microabscesses/Fistula - Wound culture - Gram + cocci & Coag - Staph - Blood culture - no growth after 48hrs - Procal negative - IVF 100ml/hr - Pain control Dilaudid 0.5 mg q4h & Percocet 5/325 q4prn - ID consulted, Dr. Cleveland -help appreciated -ABX: Linezolid, Zosyn, Micafungin, 2. Iron-def anemia - Continue PO iron Feosol - Monitor Hgb, currently 7.9 - Monitor for constipation 3. PPX - Zofran - Protonix - Dilaudid - Lovenox Seen, reviewed, and discussed with attending. <José Ayoub - Last Filed: 12/07/16 14:40> Objective - Vital Signs/Intake and Output Vital Signs (last 24 hours): Temp Pulse Resp BP Pulse Ox 98.9 F 83 19 122/82 98 12/07/16 06:00 12/07/16 06:00 12/07/16 06:00 12/07/16 06:00 12/07/16 06:00 Intake and Output: 12/07/16 12/07/16 06:59 18:59 Intake Total 480 Balance 480 - Medications Medications: Current Medications Enoxaparin Sodium (Lovenox) 40 mg SC DAILY [facility] PRN Reason: Protocol Last Admin: 12/07/16 09:40 Dose: Not Given Ferrous Sulfate (Feosol) 324 mg PO TID [facility] Last Admin: 12/07/16 09:36 Dose: 324 mg Hydromorphone HCl (Dilaudid) 0.5 mg IVP Q4H PRN PRN Reason: Pain, moderate (4-7) Last Admin: 12/07/16 12:01 Dose: 0.5 mg Sodium Chloride (Sodium Chloride 0.9%) 1,000 mls @ 100 mls/hr IV .Q10H [facility] Last Admin: 12/07/16 05:39 Dose: 100 mls/hr Micafungin Sodium 100 mg/ (Sodium Chloride) 100 mls @ 100 mls/hr IV DAILY [facility] PRN Reason: Protocol Stop: 12/15/16 10:01 Last Admin: 12/07/16 09:39 Dose: 100 mls/hr Linezolid (Zyvox 600mg/300ml D5w) 300 mls @ 200 mls/hr IVPB Q12 [facility] PRN Reason: Protocol Stop: 12/18/16 22:01 Last Admin: 12/07/16 11:11 Dose: 200 mls/hr Piperacillin Sod/Tazobactam Sod (Zosyn 3.375 In Ns 100ml) 100 mls @ 200 mls/hr IVPB Q6 [facility] PRN Reason: Protocol Stop: 12/18/16 18:01 Last Admin: 12/07/16 12:01 Dose: 200 mls/hr Ondansetron HCl (Zofran Inj) 4 mg IVP Q4H PRN PRN Reason: Nausea/Vomiting Last Admin: 12/05/16 00:33 Dose: 4 mg Oxycodone/Acetaminophen (Percocet 5/325 Mg Tab) 1 tab PO Q4H PRN PRN Reason: Pain, moderate (4-7) Stop: 12/07/16 20:19 Last Admin: 12/07/16 09:20 Dose: 1 tab Pantoprazole Sodium (Protonix Inj) 40 mg IVP DAILY [facility] Last Admin: 12/07/16 09:39 Dose: 40 mg - Labs Labs: 12/07/16 07:30 12/07/16 07:30 PT 12.2 Seconds (9.9-11.8) H 12/04/16 14:00 INR 1.13 (0.93-1.08) H 12/04/16 14:00 APTT 31.9 Seconds (23.7-30.8) H 12/04/16 14:00 Assessment and Plan - Assessment and Plan (Free Text) Assessment: attending note; Patient seen and examined with resident. Patient is a 21 year old male with a pmh of Crohn's ,multiple surgeries, recurrent abscess drainage, Fistula and iron deficiency anemia Is admitted for recurrent nonhealing Crohn's/fistula infection. Patient recently signed AMA. cultures grew VRE. Currently on Zyvox, Zosyn and Micafungin. we will follow up with ID closely. chronic iron deficiency anemia;stable. upon discharge the patient will follow-up with PMD . patient needs close follow-up with GI and colorectal surgery as outpatient. Attending/Attestation - Attestation I have personally seen and examined this patient.: Yes I have fully participated in the care of the patient.: Yes I have reviewed all pertinent clinical information, including history, physical exam and plan: Yes
[2016-12-06] MEDS: Linezolid 600 mg in D5W 300 ml 300 ML IVPB SCH ×2 (12:10→21:06)
--- NOTE | 2016-12-06 18:04 | CP.PCM.PN ---
Subjective - Date & Time of Evaluation Date of Evaluation: 12/06/16 Time of Evaluation: 09:15 - Subjective Subjective: Comfortable in bed, not in distress, no fevers, less abdominal pain. Objective - Vital Signs/Intake and Output Vital Signs (last 24 hours): Temp Pulse Resp BP Pulse Ox 98.8 F 78 18 116/75 100 12/06/16 06:00 12/06/16 06:00 12/06/16 06:00 12/06/16 06:00 12/06/16 06:00 Intake and Output: 12/06/16 12/06/16 06:59 18:59 Intake Total 420 Output Total 2 Balance 418 - Medications Medications: Current Medications Enoxaparin Sodium (Lovenox) 40 mg SC DAILY [facility] PRN Reason: Protocol Last Admin: 12/06/16 09:51 Dose: Not Given Ferrous Sulfate (Feosol) 324 mg PO TID [facility] Last Admin: 12/06/16 16:59 Dose: 324 mg Hydromorphone HCl (Dilaudid) 0.5 mg IVP Q4H PRN PRN Reason: Pain, moderate (4-7) Last Admin: 12/06/16 15:58 Dose: 0.5 mg Sodium Chloride (Sodium Chloride 0.9%) 1,000 mls @ 100 mls/hr IV .Q10H [facility] Last Admin: 12/06/16 04:51 Dose: Not Given Micafungin Sodium 100 mg/ (Sodium Chloride) 100 mls @ 100 mls/hr IV DAILY [facility] PRN Reason: Protocol Stop: 12/15/16 10:01 Last Admin: 12/06/16 10:35 Dose: 100 mls/hr Linezolid (Zyvox 600mg/300ml D5w) 300 mls @ 200 mls/hr IVPB Q12 [facility] PRN Reason: Protocol Stop: 12/18/16 22:01 Last Admin: 12/06/16 12:10 Dose: 200 mls/hr Piperacillin Sod/Tazobactam Sod (Zosyn 3.375 In Ns 100ml) 100 mls @ 200 mls/hr IVPB Q6 [facility] PRN Reason: Protocol Stop: 12/18/16 18:01 Last Admin: 12/06/16 16:59 Dose: 200 mls/hr Ondansetron HCl (Zofran Inj) 4 mg IVP Q4H PRN PRN Reason: Nausea/Vomiting Last Admin: 12/05/16 00:33 Dose: 4 mg Oxycodone/Acetaminophen (Percocet 5/325 Mg Tab) 1 tab PO Q4H PRN PRN Reason: Pain, moderate (4-7) Stop: 12/07/16 20:19 Last Admin: 12/06/16 16:57 Dose: 1 tab Pantoprazole Sodium (Protonix Inj) 40 mg IVP DAILY [facility] Last Admin: 12/06/16 09:47 Dose: 40 mg - Labs Labs: 12/06/16 06:45 12/06/16 06:45 PT 12.2 Seconds (9.9-11.8) H 12/04/16 14:00 INR 1.13 (0.93-1.08) H 12/04/16 14:00 APTT 31.9 Seconds (23.7-30.8) H 12/04/16 14:00 - Constitutional Appears: Non-toxic, No Acute Distress - Head Exam Head Exam: NORMAL INSPECTION - ENT Exam ENT Exam: Mucous Membranes Moist - Neck Exam Neck Exam: absent: Lymphadenopathy, Meningismus - Respiratory Exam Respiratory Exam: Decreased Breath Sounds - Cardiovascular Exam Cardiovascular Exam: +S1, +S2 - GI/Abdominal Exam GI & Abdominal Exam: Soft. 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
[2016-12-07] MEDS: Piperacillin/Tazobact 3.375 gm 100 ML IVPB SCH ×5 (00:14→23:54)
[2016-12-07] MEDS: HYDROmorphone 0.5 mg/0.5 ml ISec IVP PRN ×7 (00:14→23:59)
[2016-12-07] MEDS: Oxycodone/Acetaminophen 5/325 mg Tab PO PRN ×5 (01:32→17:24)
[2016-12-07] MEDS: Sodium Chloride 0.9% 1,000 ML IV SCH (05:39)
[2016-12-07 07:54] LABS: BASO # 0.02 K/mm3 (0.0-2.0); BASO % 0.2 % (0.0-3.0); EOS # 0.3 (0.0-0.7); EOS % 3.2 % (1.5-5.0); GRAN # 7.32 (1.4-6.5); GRAN % 75.4 % (50.0-68.0); HEMATOCRIT 25.6 % (42.0-52.0); LYMPH # 1.2 (1.2-3.4); LYMPH % 12.5 % (22.0-35.0); MEAN CELL VOLUME 70.5 fL (80.0-105.0); MEAN CORPUSCULAR HEMOGLOBIN 21.5 pg (25.0-35.0); MEAN CORPUSCULAR HGB CONC 30.5 g/dl (31.0-37.0); MEAN PLATELET VOLUME 7.9 fl (7.0-11.0); MONO # 0.8 (0.1-0.6); MONO % 8.7 % (1.0-6.0); WHITE BLOOD COUNT 9.7 10^3/ul (4.5-11.0)
[2016-12-07 08:06] LABS: BLOOD UREA NITROGEN 5 mg/dL (7-21); CALCIUM 8.1 mg/dL (8.4-10.5); CARBON DIOXIDE 27 mmol/L (21-33); CHLORIDE 102 mmol/L (95-110); GFR AFRICAN-AMERICAN > 60; GLUCOSE,RANDOM 73 mg/dL (70-110); POTASSIUM 3.6 mmol/L (3.6-5.0); SODIUM 138 mmol/L (132-148)
[2016-12-07 08:45] LABS: PLATELET COUNT 792 10^3/uL (120.0-450.0)
[2016-12-07 09:11] LABS: ADD MANUAL DIFF? NO
[2016-12-07] MEDS: Micafungin 100 MG in Sodium Chloride 0.9% 100 ML IV SCH (09:39)
[2016-12-07] MEDS: Enoxaparin 40 mg Syringe SC SCH (09:40)
[2016-12-07] MEDS: Linezolid 600 mg in D5W 300 ml 300 ML IVPB SCH ×2 (11:11→21:02)
--- NOTE | 2016-12-07 12:06 | CP.PCM.PN ---
<Callum Vazquez - Last Filed: 12/07/16 15:38> Subjective - Date & Time of Evaluation Date of Evaluation: 12/07/16 Time of Evaluation: 07:30 - Subjective Subjective: 21 y/o M with PMH of recent multiple abdominal abscesses/fistulas likely 2/2 to Crohn's disease that were VRE/Melissa positive, iron-def anemia, curently on IV antibiotcs. He was previously admitted to this hospital last week for the same presentation. Today, pt. is resting comfortably and in no acute distress. He complains of diarrhea. He denies fevers, chills, chest pain, or difficulty breathing, nausea, or vomiting. Objective - Vital Signs/Intake and Output Vital Signs (last 24 hours): Temp Pulse Resp BP Pulse Ox 98.9 F 83 19 122/82 98 12/07/16 06:00 12/07/16 06:00 12/07/16 06:00 12/07/16 06:00 12/07/16 06:00 Intake and Output: 12/07/16 12/07/16 06:59 18:59 Intake Total 480 Balance 480 - Medications Medications: Current Medications Enoxaparin Sodium (Lovenox) 40 mg SC DAILY [facility] PRN Reason: Protocol Last Admin: 12/07/16 09:40 Dose: Not Given Ferrous Sulfate (Feosol) 324 mg PO TID [facility] Last Admin: 12/07/16 09:36 Dose: 324 mg Hydromorphone HCl (Dilaudid) 0.5 mg IVP Q4H PRN PRN Reason: Pain, moderate (4-7) Last Admin: 12/07/16 08:13 Dose: 0.5 mg Sodium Chloride (Sodium Chloride 0.9%) 1,000 mls @ 100 mls/hr IV .Q10H [facility] Last Admin: 12/07/16 05:39 Dose: 100 mls/hr Micafungin Sodium 100 mg/ (Sodium Chloride) 100 mls @ 100 mls/hr IV DAILY [facility] PRN Reason: Protocol Stop: 12/15/16 10:01 Last Admin: 12/07/16 09:39 Dose: 100 mls/hr Linezolid (Zyvox 600mg/300ml D5w) 300 mls @ 200 mls/hr IVPB Q12 [facility] PRN Reason: Protocol Stop: 12/18/16 22:01 Last Admin: 12/07/16 11:11 Dose: 200 mls/hr Piperacillin Sod/Tazobactam Sod (Zosyn 3.375 In Ns 100ml) 100 mls @ 200 mls/hr IVPB Q6 [facility] PRN Reason: Protocol Stop: 12/18/16 18:01 Last Admin: 12/07/16 06:19 Dose: 200 mls/hr Ondansetron HCl (Zofran Inj) 4 mg IVP Q4H PRN PRN Reason: Nausea/Vomiting Last Admin: 12/05/16 00:33 Dose: 4 mg Oxycodone/Acetaminophen (Percocet 5/325 Mg Tab) 1 tab PO Q4H PRN PRN Reason: Pain, moderate (4-7) Stop: 12/07/16 20:19 Last Admin: 12/07/16 09:20 Dose: 1 tab Pantoprazole Sodium (Protonix Inj) 40 mg IVP DAILY [facility] Last Admin: 12/07/16 09:39 Dose: 40 mg - Labs Labs: 12/07/16 07:30 12/07/16 07:30 PT 12.2 Seconds (9.9-11.8) H 12/04/16 14:00 INR 1.13 (0.93-1.08) H 12/04/16 14:00 APTT 31.9 Seconds (23.7-30.8) H 12/04/16 14:00 - Constitutional Appears: No Acute Distress - Head Exam Head Exam: ATRAUMATIC, NORMOCEPHALIC - Eye Exam Eye Exam: EOMI - ENT Exam ENT Exam: Mucous Membranes Moist - Neck Exam Neck Exam: Full ROM. absent: Lymphadenopathy - Respiratory Exam Respiratory Exam: Clear to Ausculation Bilateral, NORMAL BREATHING PATTERN. absent: Rales, Rhonchi - Cardiovascular Exam Cardiovascular Exam: REGULAR RHYTHM, +S1, +S2. absent: JVD - GI/Abdominal Exam GI & Abdominal Exam: Soft, Tenderness Additional comments: multiple draining abscesses in his abdomen, RLQ and on his back in the right flank area. - Extremities Exam Extremities Exam: Full ROM. absent: Joint Swelling, Pedal Edema - Back Exam Back Exam: absent: CVA tenderness (L), CVA tenderness (R), NORMAL INSPECTION, paraspinal tenderness - Neurological Exam Neurological Exam: Alert, Awake, Oriented x3 - Psychiatric Exam Psychiatric exam: Normal Affect, Normal Mood - Skin Skin Exam: Dry, Intact, Normal Color, Warm Assessment and Plan - Assessment and Plan (Free Text) Assessment: 21 y/o M with PMH of Crohn's disease, iron-def anemia, on IV abx for multiple abdominal abscesses containing VRE. Plan: 1. Pelvic Microabscesses/Fistula - Wound culture - Gram + cocci(VRE) & Coag "-" Staph - Blood culture - no growth after 48hrs - Procal negative - IVF 100ml/hr - Pain control Dilaudid 0.5 mg q4h & Percocet 5/325 q4prn - ID consulted, Dr. Cleveland -help appreciated -ABX: Linezolid, Zosyn, Micafungin 2. Iron-def anemia - Continue PO iron Feosol - Monitor Hgb, currently 7.8 - Monitor for constipation 3. Diarrhea - C.diff ag 4. PPX - Zofran - Protonix - Dilaudid - Lovenox Seen, reviewed, and discussed with attending. <José Ayoub - Last Filed: 12/07/16 17:41> Objective - Vital Signs/Intake and Output Vital Signs (last 24 hours): Temp Pulse Resp BP Pulse Ox 98.6 F 79 20 118/78 100 12/07/16 16:00 12/07/16 16:00 12/07/16 16:00 12/07/16 16:00 12/07/16 16:00 Intake and Output: 12/07/16 12/07/16 06:59 18:59 Intake Total 480 Balance 480 - Medications Medications: Current Medications Enoxaparin Sodium (Lovenox) 40 mg SC DAILY [facility] PRN Reason: Protocol Last Admin: 12/07/16 09:40 Dose: Not Given Ferrous Sulfate (Feosol) 324 mg PO TID [facility] Last Admin: 12/07/16 17:25 Dose: 324 mg Hydromorphone HCl (Dilaudid) 0.5 mg IVP Q4H PRN PRN Reason: Pain, moderate (4-7) Last Admin: 12/07/16 16:33 Dose: 0.5 mg Micafungin Sodium 100 mg/ (Sodium Chloride) 100 mls @ 100 mls/hr IV DAILY [facility] PRN Reason: Protocol Stop: 12/15/16 10:01 Last Admin: 12/07/16 09:39 Dose: 100 mls/hr Linezolid (Zyvox 600mg/300ml D5w) 300 mls @ 200 mls/hr IVPB Q12 [facility] PRN Reason: Protocol Stop: 12/18/16 22:01 Last Admin: 12/07/16 11:11 Dose: 200 mls/hr Piperacillin Sod/Tazobactam Sod (Zosyn 3.375 In Ns 100ml) 100 mls @ 200 mls/hr IVPB Q6 [facility] PRN Reason: Protocol Stop: 12/18/16 18:01 Last Admin: 12/07/16 17:28 Dose: 200 mls/hr Ondansetron HCl (Zofran Inj) 4 mg IVP Q4H PRN PRN Reason: Nausea/Vomiting Last Admin: 12/05/16 00:33 Dose: 4 mg Oxycodone/Acetaminophen (Percocet 5/325 Mg Tab) 1 tab PO Q4H PRN PRN Reason: Pain, moderate (4-7) Stop: 12/07/16 20:19 Last Admin: 12/07/16 17:24 Dose: 1 tab Pantoprazole Sodium (Protonix Inj) 40 mg IVP DAILY [facility] Last Admin: 12/07/16 09:39 Dose: 40 mg - Labs Labs: 12/07/16 07:30 12/07/16 07:30 PT 12.2 Seconds (9.9-11.8) H 12/04/16 14:00 INR 1.13 (0.93-1.08) H 12/04/16 14:00 APTT 31.9 Seconds (23.7-30.8) H 12/04/16 14:00 Assessment and Plan - Assessment and Plan (Free Text) Assessment: attending note; Patient seen and examined with resident. Patient is a 21 year old male with a pmh of Crohn's ,multiple surgeries, recurrent abscess drainage, Fistula and iron deficiency anemia Is admitted for recurrent nonhealing Crohn's/fistula infection. cultures grew VRE. Currently on Zyvox, Zosyn and Micafungin. we will follow up with ID closely. chronic iron deficiency anemia;stable. upon discharge the patient will follow-up with PMD . patient needs close follow-up with GI and colorectal surgery as outpatient. Attending/Attestation - Attestation I have personally seen and examined this patient.: Yes I have fully participated in the care of the patient.: Yes I have reviewed all pertinent clinical information, including history, physical exam and plan: Yes
[2016-12-07] MEDS ORDERED: Oxycodone/Acetaminophen 5/325 mg Tab PO ONE (22:18)
[2016-12-08] MEDS: HYDROmorphone 0.5 mg/0.5 ml ISec IVP PRN ×3 (03:55→11:50)
[2016-12-08] MEDS: Piperacillin/Tazobact 3.375 gm 100 ML IVPB SCH ×2 (05:39→11:04)
[2016-12-08 09:08] LABS: ADD MANUAL DIFF? NO
[2016-12-08 09:11] LABS: BASO # 0.02 K/mm3 (0.0-2.0); BASO % 0.2 % (0.0-3.0); EOS # 0.1 (0.0-0.7); GRAN # 9.69 (1.4-6.5); GRAN % 81.5 % (50.0-68.0); HEMATOCRIT 28.2 % (42.0-52.0); LYMPH # 1.3 (1.2-3.4); LYMPH % 10.8 % (22.0-35.0); MEAN CELL VOLUME 70.5 fL (80.0-105.0); MEAN CORPUSCULAR HGB CONC 31.2 g/dl (31.0-37.0); MEAN PLATELET VOLUME 7.7 fl (7.0-11.0); MONO # 0.8 (0.1-0.6); MONO % 6.5 % (1.0-6.0); RED CELL DISTRIBUTION WIDTH 19.7 % (11.5-14.5); WHITE BLOOD COUNT 11.9 10^3/ul (4.5-11.0)
[2016-12-08 09:21] LABS: PLATELET COUNT 739 10^3/uL (120.0-450.0)
[2016-12-08 09:43] VITALS: BP 114/70; PULSE 97; RESP 18; TEMP 98.2; O2SAT 99
[2016-12-08] MEDS ORDERED: Oxycodone/Acetaminophen 5/325 mg Tab PO PRN (10:09)
[2016-12-08] MEDS: Enoxaparin 40 mg Syringe SC SCH (10:24)
[2016-12-08] MEDS: Linezolid 600 mg in D5W 300 ml 300 ML IVPB SCH (10:29)
[2016-12-08 10:57] LABS: IRON 10 ug/dL (45-180)
--- NOTE | 2016-12-08 15:28 | CP.PCM.DIS ---
<Callum Vazquez - Last Filed: 12/09/16 09:05> Provider - Provider Date of Admission: 12/04/16 15:11 Attending physician: José Ayoub MD Primary care physician: Brendan Ward MD Time Spent in preparation of Discharge (in minutes): 35 Hospital Course - Lab Results Lab Results: Most Recent Lab Values WBC 11.9 10^3/ul (4.5-11.0) H D 12/08/16 09:00 RBC 4.00 10^6/uL (3.5-6.1) 12/08/16 09:00 Hgb 8.8 gm/dL (14.0-18.0) L 12/08/16 09:00 Hct 28.2 % (42.0-52.0) L 12/08/16 09:00 MCV 70.5 fL (80.0-105.0) L 12/08/16 09:00 MCH 22.0 pg (25.0-35.0) L 12/08/16 09:00 MCHC 31.2 g/dl (31.0-37.0) 12/08/16 09:00 RDW 19.7 % (11.5-14.5) H 12/08/16 09:00 Plt Count 739 10^3/uL (120.0-450.0) H* 12/08/16 09:00 MPV 7.7 fl (7.0-11.0) 12/08/16 09:00 Gran % 81.5 % (50.0-68.0) H 12/08/16 09:00 Lymph % (Auto) 10.8 % (22.0-35.0) L 12/08/16 09:00 [place] % (Auto) 6.5 % (1.0-6.0) H 12/08/16 09:00 Eos % (Auto) 1.0 % (1.5-5.0) L 12/08/16 09:00 Baso % (Auto) 0.2 % (0.0-3.0) 12/08/16 09:00 Gran # 9.69 (1.4-6.5) H 12/08/16 09:00 Lymph # 1.3 (1.2-3.4) 12/08/16 09:00 [place] # 0.8 (0.1-0.6) H 12/08/16 09:00 Eos # 0.1 (0.0-0.7) 12/08/16 09:00 Baso # 0.02 K/mm3 (0.0-2.0) 12/08/16 09:00 PT 12.2 Seconds (9.9-11.8) H 12/04/16 14:00 INR 1.13 (0.93-1.08) H 12/04/16 14:00 APTT 31.9 Seconds (23.7-30.8) H 12/04/16 14:00 Sodium 138 mmol/L (132-148) 12/07/16 07:30 Potassium 3.6 mmol/L (3.6-5.0) 12/07/16 07:30 Chloride 102 mmol/L (95-110) 12/07/16 07:30 Carbon Dioxide 27 mmol/L (21-33) 12/07/16 07:30 Anion Gap 13 (10-20) 12/07/16 07:30 BUN 5 mg/dL (7-21) L 12/07/16 07:30 Creatinine 0.8 mg/dL (0.5-1.4) 12/07/16 07:30 Est GFR ( Amer) > 60 12/07/16 07:30 Est GFR (Non-Af Amer) > 60 12/07/16 07:30 Random Glucose 73 mg/dL (70-110) 12/07/16 07:30 Calcium 8.1 mg/dL (8.4-10.5) L 12/07/16 07:30 Iron 10 ug/dL (45-180) L 12/08/16 09:00 TIBC 244 ug/dL (261-462) L 12/08/16 09:00 % Saturation 4 % (20-55) L 12/08/16 09:00 Total Bilirubin 0.4 mg/dL (0.2-1.3) 12/04/16 14:00 AST 37 U/L (15-59) 12/04/16 14:00 ALT 8 U/L (7-56) 12/04/16 14:00 Alkaline Phosphatase 109 U/L (38-133) 12/04/16 14:00 Total Protein 8.7 g/dL (5.8-8.3) H 12/04/16 14:00 Albumin 3.9 g/dL (3.0-4.8) 12/04/16 14:00 Globulin 4.8 gm/dL 12/04/16 14:00 Albumin/Globulin Ratio 0.8 (1.1-1.8) L 12/04/16 14:00 Lipase 52 U/L (23-300) 12/04/16 14:00 Procalcitonin 0.06 NG/ML (0.19-0.49) L 12/04/16 14:00 - Hospital Course Hospital Course: 21 year old male with a pmh of Crohn's and Fe def anemia presents to the the ED for the third time with same complaint. He has multiple draining abdominal abscesses/fistulas in his right lower abomdinal area and one on his right flank. He was started on antibiotics including IV Vancomycin, Linezolid, Zosyn and given fluids. His wounds improved and he was medically stable for discharge. He was advised (for a third time) to follow up with his primary care doctor, his GI doc or Dr. Schaefer, and a colorectal specialist at [facility]. He was also advised to have his Crohn's managed by an appropriate doctor and that recurrent infections will likely get worse and resistant to treatment. - Date & Time of H&P Date of H&P: 12/08/16 Time of H&P: 07:45 Discharge Exam - Head Exam Head Exam: ATRAUMATIC, NORMOCEPHALIC Discharge Plan - Discharge Medications Prescriptions: oxyCODONE/Acetaminophen [Percocet 5/325 mg Tab] 1 ea PO Q6H PRN #10 tab PRN Reason: Pain, Severe (8-10) Linezolid [Zyvox] 600 mg PO BID #20 tab - Follow Up Plan Condition: FAIR Disposition: HOME/ ROUTINE Instructions: Narcotic Pain Management (DC), Acute Abdominal Pain (DC), Opioid Dependence (DC), Opioid Pain Management (DC) Additional Instructions: Patient is medically stable for discharge. 1. Please follow up with pmd Dr. Ward as soon as possible. 2. Please follow up with your GI doctor or Dr. Michael Schaefer. [phone] 3. Please follow up with colorectal surgery in [facility]. Call [phone] for appointment.- 4. Please take Zyvox 600mg bid for 10 days- Please do all of the above to maximize your health. Referrals: Brendan Ward MD [Primary Care Provider] - <José Ayoub - Last Filed: 12/09/16 16:51> Provider - Provider Date of Admission: 12/04/16 15:11 Attending physician: José Ayoub MD Primary care physician: Brendan Ward MD Time Spent in preparation of Discharge (in minutes): 35 Hospital Course - Lab Results Lab Results: Most Recent Lab Values WBC 11.9 10^3/ul (4.5-11.0) H D 12/08/16 09:00 RBC 4.00 10^6/uL (3.5-6.1) 12/08/16 09:00 Hgb 8.8 gm/dL (14.0-18.0) L 12/08/16 09:00 Hct 28.2 % (42.0-52.0) L 12/08/16 09:00 MCV 70.5 fL (80.0-105.0) L 12/08/16 09:00 MCH 22.0 pg (25.0-35.0) L 12/08/16 09:00 MCHC 31.2 g/dl (31.0-37.0) 12/08/16 09:00 RDW 19.7 % (11.5-14.5) H 12/08/16 09:00 Plt Count 739 10^3/uL (120.0-450.0) H* 12/08/16 09:00 MPV 7.7 fl (7.0-11.0) 12/08/16 09:00 Gran % 81.5 % (50.0-68.0) H 12/08/16 09:00 Lymph % (Auto) 10.8 % (22.0-35.0) L 12/08/16 09:00 [place] % (Auto) 6.5 % (1.0-6.0) H 12/08/16 09:00 Eos % (Auto) 1.0 % (1.5-5.0) L 12/08/16 09:00 Baso % (Auto) 0.2 % (0.0-3.0) 12/08/16 09:00 Gran # 9.69 (1.4-6.5) H 12/08/16 09:00 Lymph # 1.3 (1.2-3.4) 12/08/16 09:00 [place] # 0.8 (0.1-0.6) H 12/08/16 09:00 Eos # 0.1 (0.0-0.7) 12/08/16 09:00 Baso # 0.02 K/mm3 (0.0-2.0) 12/08/16 09:00 PT 12.2 Seconds (9.9-11.8) H 12/04/16 14:00 INR 1.13 (0.93-1.08) H 12/04/16 14:00 APTT 31.9 Seconds (23.7-30.8) H 12/04/16 14:00 Sodium 138 mmol/L (132-148) 12/07/16 07:30 Potassium 3.6 mmol/L (3.6-5.0) 12/07/16 07:30 Chloride 102 mmol/L (95-110) 12/07/16 07:30 Carbon Dioxide 27 mmol/L (21-33) 12/07/16 07:30 Anion Gap 13 (10-20) 12/07/16 07:30 BUN 5 mg/dL (7-21) L 12/07/16 07:30 Creatinine 0.8 mg/dL (0.5-1.4) 12/07/16 07:30 Est GFR ( Amer) > 60 12/07/16 07:30 Est GFR (Non-Af Amer) > 60 12/07/16 07:30 Random Glucose 73 mg/dL (70-110) 12/07/16 07:30 Calcium 8.1 mg/dL (8.4-10.5) L 12/07/16 07:30 Iron 10 ug/dL (45-180) L 12/08/16 09:00 TIBC 244 ug/dL (261-462) L 12/08/16 09:00 % Saturation 4 % (20-55) L 12/08/16 09:00 Ferritin 83.6 ng/mL 12/08/16 09:00 Total Bilirubin 0.4 mg/dL (0.2-1.3) 12/04/16 14:00 AST 37 U/L (15-59) 12/04/16 14:00 ALT 8 U/L (7-56) 12/04/16 14:00 Alkaline Phosphatase 109 U/L (38-133) 12/04/16 14:00 Total Protein 8.7 g/dL (5.8-8.3) H 12/04/16 14:00 Albumin 3.9 g/dL (3.0-4.8) 12/04/16 14:00 Globulin 4.8 gm/dL 12/04/16 14:00 Albumin/Globulin Ratio 0.8 (1.1-1.8) L 12/04/16 14:00 Lipase 52 U/L (23-300) 12/04/16 14:00 Procalcitonin 0.06 NG/ML (0.19-0.49) L 12/04/16 14:00 - Hospital Course Hospital Course: attending note; Patient seen and examined with resident. Patient is a 21 year old male with a pmh of Crohn's ,multiple surgeries, recurrent abscess drainage, Fistula and iron deficiency anemia Is admitted for recurrent nonhealing Crohn's/fistula infection. cultures grew VRE. Treated with IV Zyvox, Zosyn and Micafungin. will be discharged home with Po zyvox. chronic iron deficiency anemia;stable. upon discharge the patient will follow-up with PMD . patient needs close follow-up with GI and colorectal surgery as outpatient. opiate abuse: Upon further review with NIKKI HUERTAS aware the patient is getting prescriptions for percocet from multiple doctors. getting opiates from DR. Danny Ruth. Pharmacy informed about this patient's opiate abuse/overuse behaviour. asked pharmacy not to refill additional prescription given by multiple physicians. Diagnosis; Crohn's disease recurrent abscess drainage, Fistula VRE infection anemia opiate abuse
--- NOTE | 2016-12-08 18:57 | CP.PCM.PN ---
Subjective - Date & Time of Evaluation Date of Evaluation: 12/08/16 Time of Evaluation: 09:45 - Subjective Subjective: Patient is comfortable in bed, not in distress. Less pain in the abdomen, no fevers overnight, no diarrhea. Objective - Vital Signs/Intake and Output Vital Signs (last 24 hours): Temp Pulse Resp BP Pulse Ox 98.2 F 97 H 18 114/70 99 12/08/16 06:00 12/08/16 06:00 12/08/16 06:00 12/08/16 06:00 12/08/16 06:00 Intake and Output: 12/08/16 12/08/16 06:59 18:59 Intake Total 540 1000 Output Total 600 2500 Balance -60 -1500 - Labs Labs: 12/08/16 09:00 12/07/16 07:30 PT 12.2 Seconds (9.9-11.8) H 12/04/16 14:00 INR 1.13 (0.93-1.08) H 12/04/16 14:00 APTT 31.9 Seconds (23.7-30.8) H 12/04/16 14:00 - Constitutional Appears: Non-toxic, No Acute Distress - Head Exam Head Exam: NORMAL INSPECTION - Neck Exam Neck Exam: absent: Lymphadenopathy, Meningismus - Respiratory Exam Respiratory Exam: Decreased Breath Sounds - Cardiovascular Exam Cardiovascular Exam: +S1, +S2 - GI/Abdominal Exam GI & Abdominal Exam: Soft. 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 Ayoub Will continue to monitor clinically while the patient is in the hospital
== END 2016-12-08 16:32 | disposition home or self-care (01) | DRG 584 ==
LOC: ED 12:58 → ERH 15:11 → 3RNO 16:07
PROVIDERS: ADMIT Hospitalist; ATTEND Internal Medicine
DX: A41.9 Sepsis, unspecified organism (principal); K65.1 Peritoneal abscess; K50.913 Crohn's disease, unspecified, with fistula; D50.9 Iron deficiency anemia, unspecified; B95.2 Enterococcus as the cause of diseases classified elsewhere; Z16.21 Resistance to vancomycin; Z87.891 Personal history of nicotine dependence

== ENCOUNTER 2016-12-11 22:21 | Inpatient (IN) | payer MEDICAID ==
[2016-12-11] MEDS ORDERED: Sodium Chloride 0.9% 1,000 ML IV STA (22:48)
[2016-12-11 23:42] LABS: BASO # 0.02 K/mm3 (0.0-2.0); BASO % 0.3 % (0.0-3.0); EOS # 0.1 (0.0-0.7); EOS % 1.2 % (1.5-5.0); GRAN # 5.58 (1.4-6.5); GRAN % 72.6 % (50.0-68.0); HEMATOCRIT 25.2 % (42.0-52.0); LYMPH # 1.2 (1.2-3.4); MEAN CELL VOLUME 70.6 fL (80.0-105.0); MEAN CORPUSCULAR HEMOGLOBIN 21.6 pg (25.0-35.0); MEAN CORPUSCULAR HGB CONC 30.6 g/dl (31.0-37.0); MEAN PLATELET VOLUME 7.6 fl (7.0-11.0); MONO # 0.8 (0.1-0.6); MONO % 10.9 % (1.0-6.0); PLATELET COUNT 685 10^3/uL (120.0-450.0); RED CELL DISTRIBUTION WIDTH 20.1 % (11.5-14.5); WHITE BLOOD COUNT 7.7 10^3/ul (4.5-11.0)
[2016-12-11 23:49] LABS: ALB/GLOB RATIO 0.8 (1.1-1.8); ALKALINE PHOSPHATASE 89 U/L (38-133); ALT/SGPT 26 U/L (7-56); AMYLASE 92 U/L (35-125); AST/SGOT 55 U/L (15-59); BILIRUBIN,TOTAL 0.3 mg/dL (0.2-1.3); BLOOD UREA NITROGEN 6 mg/dL (7-21); CALCIUM 9.2 mg/dL (8.4-10.5); CARBON DIOXIDE 30 mmol/L (21-33); CHLORIDE 102 mmol/L (98-107); GFR AFRICAN-AMERICAN > 60; GLUCOSE,RANDOM 85 mg/dL (70-110); LIPASE 62 U/L (23-300); POTASSIUM 3.8 mmol/L (3.6-5.0); SODIUM 143 mmol/L (132-148); TOTAL PROTEIN 8.3 g/dL (5.8-8.3)
--- NOTE | 2016-12-12 00:27 | CT ---
EXAM: CT Head Without Intravenous Contrast CLINICAL HISTORY: 21 years old, male; Signs and symptoms; Syncope and collapse TECHNIQUE: Axial computed tomography images of the head/brain without intravenous contrast. This CT exam was performed using one or more of the following dose reduction techniques: automated exposure control, adjustment of the mA and/or kV according to patient size, and/or use of iterative reconstruction technique. COMPARISON: No relevant prior studies available. FINDINGS: Brain: No acute intracranial hemorrhage. No significant white matter disease. No edema. Ventricles: No significant ventriculomegaly. Bones: No acute displaced fracture. Sinuses: Unremarkable as visualized. No acute sinusitis. Mastoid air cells: Unremarkable as visualized. No mastoid effusion. IMPRESSION: No acute intracranial hemorrhage, or suspicious mass effect.
[2016-12-12 00:34] LABS: ADD MANUAL DIFF? NO
--- NOTE | 2016-12-12 00:35 | ED PDOC ---
Arrival/HPI <AntonioKenneth - Last Filed: 12/12/16 01:05> - General Historian: Patient <Layne Lao - Last Filed: 12/12/16 02:22> - General Chief Complaint: Weakness/Neurological Deficit Time Seen by Provider: 12/11/16 22:38 - History of Present Illness Narrative History of Present Illness (Text): 12/12/16 00:35 21-year-old male with a history of Crohn's disease with multiple intra- abdominal fistulas presents today status post syncopal episode. Patient states he just finished eating dinner walked to his bedroom sat down for second and when he stood up he felt as if everything went black tried to take a few more steps and fell to the ground landing on the left side. Patient is not sure if he had complete loss of consciousness but states he had a very strange feeling and blackness came over his vision. He is complaining of chronic abdominal pain. He is complaining of right hip and right elbow and right sided rib pain. He is complaining of chronic back pain. Complaining of dizziness at present time. Denies headache. No chest pain or shortness of breath. (Layne Lao) Past Medical History - Provider Review Nursing Documentation Reviewed: Yes - Travel History Have you recently traveled outside [place] w/in the past 3 mons?: No - Infectious Disease Hx of Infectious Diseases: None - Cardiac Hx Cardiac Disorders: No - Pulmonary Hx Respiratory Disorders: No - Neurological Hx Neurological Disorder: No - HEENT Hx HEENT Disorder: No - Renal Hx Renal Disorder: No - Endocrine/Metabolic Hx Endocrine Disorders: No - Hematological/Oncological Hx Blood Disorders: No - Integumentary Hx Dermatological Disorder: No - Musculoskeletal/Rheumatological Hx Falls: No - Gastrointestinal Hx Colostomy: Yes (R back) Hx Crohn's Disease: Yes Other/Comment: GI surgeries - Genitourinary/Gynecological Hx Genitourinary Disorders: No - Psychiatric Hx Psychophysiologic Disorder: No Hx Substance Use: No - Surgical History Other/Comment: Abd surg. for intraabd. abscesses x 7 last surgery 10/2016 at [facility] [place] - Anesthesia Hx Anesthesia: Yes Hx Anesthesia Reactions: No Hx Malignant Hyperthermia: No - Suicidal Assessment Feels Threatened In Home Enviroment: No <Layne Lao - Last Filed: 12/12/16 02:22> Family/Social History - Physician Review Nursing Documentation Reviewed: Yes Family/Social History: Unknown Family HX Smoking Status: Former Smoker Hx Alcohol Use: No Hx Substance Use: No <Layne Lao - Last Filed: 12/12/16 02:22> Allergies/Home Meds <Kenneth Alvarez - Last Filed: 12/12/16 01:05> <TashiaLayne T - Last Filed: 12/12/16 02:22> Allergies/Adverse Reactions: Allergies FISH Allergy (Verified 12/04/16 13:24) RASH shellfish derived Adverse Reaction (Verified 12/04/16 13:24) ANGIOEDEMA Review of Systems - Review of Systems Constitutional: Fatigue. absent: Fevers ENT: absent: Sinus Congestion Respiratory: absent: SOB, Cough Cardiovascular: Syncope. absent: Chest Pain, Palpitations Gastrointestinal: Abdominal Pain. absent: Diarrhea, Vomiting Genitourinary Male: absent: Dysuria Musculoskeletal: Arthralgias, Back Pain. absent: Neck Pain Skin: absent: Rash, Pruritis Neurological: Dizziness. absent: Headache <Layne Lao - Last Filed: 12/12/16 02:22> Physical Exam Vital Signs Reviewed: Yes Temperature: Afebrile Blood Pressure: Normal Pulse: Regular Respiratory Rate: Normal Appearance: Positive for: Well-Appearing, Non-Toxic, Comfortable Pain Distress: None Mental Status: Positive for: Alert and Oriented X 3 - Systems Exam Head: Present: Atraumatic Pupils: Present: PERRL Extroacular Muscles: Present: EOMI Mouth: Present: Moist Mucous Membranes Nose (External): Present: Atraumatic Neck: Present: Normal Range of Motion. No: MIDLINE TENDERNESS, Paraspinal Tenderness Respiratory/Chest: Present: Clear to Auscultation, Good Air Exchange, Tender to Palpation (+ right sided lateral rib tenderness; no edema, no erythema; no step offs or crepitus. ). No: Respiratory Distress, Accessory Muscle Use, Tachypneic Cardiovascular: Present: Regular Rate and Rhythm, Normal S1, S2. No: Murmurs Abdomen: Present: Tenderness, Scars, Other (multiple draining wounds to abdomen and large draining wound to right lower back. ). No: Rebound, Guarding Upper Extremity: Present: Normal ROM, Tenderness. No: NORMAL PULSES, Swelling, Erythema, Neurovascularly Intact, Capillary Refill < 2s, Deformity Lower Extremity: Present: Normal ROM, Tenderness (+ ttp over lateral aspect of right hip; no edema, no erythema, no ecchymosis. ), Neurovascularly Intact, Capillary Refill < 2 s. No: Swelling, Erythema, Deformity, Temperature Abnormalties Neurological: Present: GCS=15, Normal Sensory Function Skin: Present: Warm, Dry Psychiatric: Present: Alert, Oriented x 3 <Layne Lao - Last Filed: 12/12/16 02:22> Vital Signs Temp Pulse Resp BP Pulse Ox 12/12/16 00:56 77 19 147/80 100 12/11/16 22:33 97.6 F 72 18 118/76 100 Medical Decision Making <Kenneth Alvarez - Last Filed: 12/12/16 01:05> <Layne Lao - Last Filed: 12/12/16 02:22> ED Course and Treatment: 12/12/16 00:57 21-year-old male presents today with syncopal episode. Patient with a history of Crohn's with multiple visits for abdominal fistulas and abscesses. CBC: White blood cell count 7.7 Hemoglobin 7.7 change from one day ago which was 8.8 CMP within normal limits trop: wnl EKG normal sinus rhythm at 71 bpm normal axis normal intervals no ST elevations CAT scan of the head shows no acute intracranial abnormality X-ray of the right ribs: No fracture X-rays of the right elbow: No fracture X-rays of the right hip: No fracture Type and crossmatch for 2 units as patient with symptomatic anemia with a hemoglobin less than 8.0 Consent for blood transfusion obtained will given morphine for pain; case discussed with dr. richmond; will admit observational status for syncope, symptomatic anemia impression; syncope, symptomatic anemia tele obs. (Layne Lao) - Lab Interpretations Lab Results: 12/11/16 22:58 12/11/16 22:58 Lab Results 12/12/16 00:40: Blood Type Pending, Antibody Screen Pending, BBK History Checked Patient has bt 12/11/16 22:58: WBC 7.7 D, RBC 3.57, Hgb 7.7 L, Hct 25.2 L, MCV 70.6 L, MCH 21.6 L, MCHC 30.6 L, RDW 20.1 H, Plt Count 685 H, MPV 7.6, Gran % 72.6 H, Lymph % (Auto) 15.0 L, [place] % (Auto) 10.9 H, Eos % (Auto) 1.2 L, Baso % (Auto) 0.3, Gran # 5.58, Lymph # 1.2, [place] # 0.8 H, Eos # 0.1, Baso # 0.02, Sodium 143, Potassium 3.8, Chloride 102, Carbon Dioxide 30, Anion Gap 15, BUN 6 L, Creatinine 0.8, Est GFR ( Amer) > 60, Est GFR (Non-Af Amer) > 60, Random Glucose 85, Calcium 9.2, Total Bilirubin 0.3, AST 55, ALT 26, Alkaline Phosphatase 89, Lactate Dehydrogenase 343, Total Creatine Kinase 52, Troponin I < 0.01, Total Protein 8.3, Albumin 3.7, Globulin 4.6, Albumin/Globulin Ratio 0.8 L, Amylase 92, Lipase 62 - RAD Interpretation Radiology Orders: 12/11/16 23:12 HEAD W/O CONTRAST [CT] Stat ELBOW RIGHT 3 VIEWS ROUTINE [RAD] Stat HIP MIN 2V W/ PELVIS RT [RAD] Stat RIBS RIGHT & PA CHEST [RAD] Stat - Medication Orders Current Medication Orders: Hydromorphone HCl (Dilaudid) 0.5 mg IVP Q3H PRN PRN Reason: Pain, moderate (4-7) Last Admin: 12/12/16 01:43 Dose: 0.5 MG IVP Administration Document 12/12/16 01:43 MR (Rec: 12/12/16 01:43 MR [id number]) Charges for Administration # of IVP Administrations 1 Hydromorphone HCl (Dilaudid) 1 mg IVP Q3H PRN PRN Reason: Pain, severe (8-10) Linezolid (Zyvox 600mg/300ml D5w) 300 mls @ 200 mls/hr IVPB Q12 BRYANT PRN Reason: Protocol Stop: 12/12/16 11:29 Micafungin Sodium 100 mg/ (Sodium Chloride) 100 mls @ 100 mls/hr IV DAILY BRYANT PRN Reason: Protocol Stop: 12/12/16 10:59 Sodium Chloride (Sodium Chloride 0.9%) 1,000 mls @ 100 mls/hr IV .Q10H BRYANT Last Admin: 12/12/16 01:43 Dose: 100 MLS/HR eMAR Start Stop Document 12/12/16 01:43 MR (Rec: 12/12/16 01:43 MR [id number]) Intravenous Solution Start Date 12/12/16 Start Time 01:43 Piperacillin Sod/Tazobactam Sod (Zosyn 3.375 In Ns 100ml) 100 mls @ 200 mls/hr IVPB Q6 BRYANT PRN Reason: Protocol Stop: 12/12/16 12:29 Pantoprazole Sodium (Protonix Ec Tab) 40 mg PO 0630 BRYANT Discontinued Medications Sodium Chloride (Sodium Chloride 0.9%) 1,000 mls @ 999 mls/hr IV .Q1H1M STA Stop: 12/11/16 23:48 Last Admin: 12/11/16 23:24 Dose: 999 MLS/HR eMAR Start Stop Document 12/11/16 23:24 MR (Rec: 12/11/16 23:25 MR [id number]) Intravenous Solution Start Date 12/11/16 Start Time 23:25 End Date 12/12/16 End time 00:25 Total Infusion Time 60 Morphine Sulfate (Morphine) 4 mg IVP STAT STA Stop: 12/12/16 00:42 Last Admin: 12/12/16 00:57 Dose: 4 MG MAR Pain Assessment Document 12/12/16 00:57 MR (Rec: 12/12/16 00:58 MR [id number]) Pain Reassessment Is this a pain reassessment? Yes Sleep Is patient sleeping during reassessment? No Presence of Pain Presence of Pain Yes Pain Scale Used Pain Scale Used Numeric Location Left, Right or Bilateral Right Pain Location Body Site Hip Description Description Sharp Intensity of Pain at present 10 Pain Behavior Irritability Restlessness Aggravating Factors ADL's Changing Position Alleviating Factors/Management Medication Techniques Alleviating Factors Medication IVP Administration Document 12/12/16 00:57 MR (Rec: 12/12/16 00:58 MR [id number]) Charges for Administration # of IVP Administrations 1 - PA / [employer] / Resident Statement / has reviewed & agrees with the documentation as recorded. / has examined the patient and agrees with the treatment plan. <Kenneth Alvarez - Last Filed: 12/12/16 01:05> Disposition/Present on Arrival <Kenneth Alvarez - Last Filed: 12/12/16 01:05> - Present on Arrival Any Indicators Present on Arrival: No History of DVT/PE: No History of Uncontrolled Diabetes: No Urinary Catheter: No History of Decub. Ulcer: No History Surgical Site Infection Following: None - Disposition Have Diagnosis and Disposition been Completed?: Yes Disposition Time: 00:57 Patient Plan: Observation <Layne Lao - Last Filed: 12/12/16 02:22> - Disposition Diagnosis: Syncope and collapse, Symptomatic anemia Disposition: HOSPITALIZED Patient Problems: Current Active Problems Problem Status Diagnosed Abdominal pain Acute Crohn's disease Acute Symptomatic anemia Acute Syncope and collapse Acute Condition: FAIR
[2016-12-12] MEDS ORDERED: Morphine 4 mg/ml ISec IVP STA (00:41)
[2016-12-12] MEDS ORDERED: HYDROmorphone 0.5 mg/0.5 ml ISec IVP PRN (01:23)
--- NOTE | 2016-12-12 01:34 | CP.PCM.HP ---
<Jame Jean Baptiste - Last Filed: 12/12/16 04:59> History of Present Illness - History of Present Illness History of Present Illness: This is a 21 yo male with past medical hx Crohn's dx (diagnosed 2 years ago), iron deficiency anemia presenting with syncopal episode. Pt was at home when episode occurred. It was witnessed by his mother. It took place when the pt was standing upright, he had recently stood up. He had recently returned from walking to the store. He says it has happened before- 2 x before. One in summer 2015, one around 2015, he went to [facility] where he was told it was a result of dehydration. He was evaluated by a bag repairer at that time who said it was not cardiac related. This time was different because he had visual sx and saw stars before the episode. He reports he lost postural tone and he felt dizzy prior. He dropped to the ground. His mother said he was out for 1 minute. He still felt dizzy and lightheaded for 15 mins afterwards. He was transported to hospital by ambulance. He reports eating 3 full meals throughout the day. Denies seizure activity, tongue biting, bladder, bowel incontinence. Denies chest pain and sob. Denies cough and vomiting. Reports 3 episodes of non bloody diarrhea today. Last colonoscopy approximately 8 months ago. PMH: Crohn's disease (diagnosed 2 years ago), f/u with GI q 3-4 weeks for remicade PSH: multiple sx on abscesses and fistulas Allergies: shellfish FH: Arthritis-mother; HTN- father; denies FH of [place], cancer, other diseases Home meds: cipro (reported by patient, although previous notes show pt was discharged on zyvox), remicade, percocet, senna, iron pills (non compliant) Social hx: Denies smoking. Denies drinking. Denies current drug use. Says he has tried marijuana. Lives with mother in . Unemployed. Born in . Present on Admission - Present on Admission Any Indicators Present on Admission: No History of DVT/PE: No History of Uncontrolled Diabetes: No Urinary Catheter: No Decubitus Ulcer Present: No Review of Systems - Review of Systems All systems: reviewed and no additional remarkable complaints except Review of Systems: Negative except as stated in HPI. Past Patient History - Infectious Disease Hx of Infectious Diseases: None - Past Medical History & Family History Past Medical History?: Yes Past Family History: Reviewed and not pertinent - Past Social History Smoking Status: Never Smoked Chewing Tobacco Use: No Cigar Use: No Alcohol: None Drugs: Denies Home Situation {Lives}: With Family Domestic Violence: Negative - CARDIAC Hx Cardiac Disorders: No - PULMONARY Hx Respiratory Disorders: No - NEUROLOGICAL Hx Neurological Disorder: No - HEENT Hx HEENT Problems: No - RENAL Hx Chronic Kidney Disease: No - ENDOCRINE/METABOLIC Hx Endocrine Disorders: No - HEMATOLOGICAL/ONCOLOGICAL Hx Blood Disorders: No - INTEGUMENTARY Hx Dermatological Problems: No - MUSCULOSKELETAL/RHEUMATOLOGICAL Hx Falls: No - GASTROINTESTINAL Hx Colostomy: Yes (R back) Hx Crohn's Disease: Yes Other/Comment: GI surgeries - GENITOURINARY/GYNECOLOGICAL Hx Genitourinary Disorders: No - PSYCHIATRIC Hx Psychophysiologic Disorder: No Hx Substance Use: No - SURGICAL HISTORY Other/Comment: Abd surg. for intraabd. abscesses x 7 last surgery 10/2016 at [facility] [place] - ANESTHESIA Hx Anesthesia: Yes Hx Anesthesia Reactions: No Hx Malignant Hyperthermia: No Meds Allergies/Adverse Reactions: Allergies Allergy/AdvReac Type Severity Reaction Status Date / Time FISH Allergy RASH Verified 12/04/16 13:24 shellfish derived AdvReac ANGIOEDEMA Verified 12/04/16 13:24 Physical Exam - Constitutional Appears: No Acute Distress - Head Exam Head Exam: ATRAUMATIC, NORMAL INSPECTION, NORMOCEPHALIC - Eye Exam Eye Exam: EOMI - ENT Exam ENT Exam: Mucous Membranes Moist - Neck Exam Neck exam: Positive for: Normal Inspection - Respiratory Exam Respiratory Exam: Clear to Auscultation Bilateral, NORMAL BREATHING PATTERN - Cardiovascular Exam Cardiovascular Exam: REGULAR RHYTHM, +S1, +S2 - GI/Abdominal Exam GI & Abdominal Exam: Normal Bowel Sounds, Soft, Tenderness Additional comments: Open wounds RUQ and periumbilical oozing purulent material 2 cm in diameter, tender to touch - Extremities Exam Extremities exam: Positive for: normal inspection - Back Exam Back exam: NORMAL INSPECTION - Neurological Exam Neurological exam: Alert, CN II-XII Intact, Oriented x3 - Psychiatric Exam Psychiatric exam: Normal Affect, Normal Mood - Skin Skin Exam: Warm Results - Vital Signs Recent Vital Signs: Last Vital Signs Temp 97.6 F 12/11/16 22:33 Pulse 72 12/11/16 22:33 Resp 18 12/11/16 22:33 BP 118/76 12/11/16 22:33 Pulse Ox 100 12/11/16 22:33 - Labs Result Diagrams: 12/11/16 22:58 12/11/16 22:58 Assessment & Plan - Assessment and Plan (Free Text) Assessment: This is a 21 yo male with pmh of Crohn's disease, abscess/fistula presenting with syncopal episode 1. Syncopal episode -EKG shows NSR -QT not prolonged -pt reports he recently had echo- call GLORIA during daytime to confirm to avoid repeat testing -orthostatics q 8 -head CT negative -hold off on neuro/cardio consult for now -admit to telemetry 2. Open wounds/abscesses -chart reviewed from previous admission -did not complete course of abx -will resume abx tx -blood culture pending -ID consult. recs appreciated. -sx consult. recs appreciated. 3. Iron deficiency anemia -pt getting transfused 1 episode, he is symptomatic -check cbc in am -peripheral blood smear per am team 4. hx of Crohn's disease -currently no flare -regular diet -dilaudid prn 5. GI/DVT ppx -SCDs -protonix discussed with Dr. Leigh <Geronimo Leigh Q - Last Filed: 12/12/16 06:58> Results - Vital Signs Recent Vital Signs: Last Vital Signs Temp 98.8 F 12/12/16 06:00 Pulse 80 12/12/16 06:00 Resp 19 12/12/16 06:00 BP 143/85 12/12/16 06:00 Pulse Ox 100 12/12/16 00:56 - Labs Result Diagrams: 12/11/16 22:58 12/11/16 22:58 Attending/Attestation - Attestation I have personally seen and examined this patient.: Yes I have fully participated in the care of the patient.: Yes I have reviewed all pertinent clinical information: Yes
[2016-12-12] MEDS: Sodium Chloride 0.9% 1,000 ML IV SCH ×3 (01:43→20:06)
[2016-12-12 02:04] LABS: TROPONIN I < 0.01 ng/mL
[2016-12-12] MEDS: HYDROmorphone 1 mg/ml ISec IVP PRN ×8 (02:35→23:05)
[2016-12-12 03:20] VITALS: BMI 17.0
--- NOTE | 2016-12-12 05:12 | CP.PCM.CON ---
History of Present Illness - History of Present Illness History of Present Illness: General Surgery consult for Dr. 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 Patient presented to the ED yesterday with syncope and a fall on his right side. He went from a sitting to a standing position and when he started walking got light headed and fell to the ground. Was found to have a hemoglobin of 7.7 compared to his hemoglobin of 8.8 three days prior. Patient is currently asymptomatic except for his right sided back pain, RLQ abdominal pain, and drainage from 4 cutaneous fistulas, which have all improved over the past few weeks. Reports chills and chronic diarrhea with last BM yesterday, but denies hematochezia, melena, fevers, night sweats, nausea , vomiting, chest pain, SOB, vertigo, dysuria, and hematuria. He is feeling much better after the administration of one unit PRBC's. Patient sees Dr. Altamirano at [facility] for infusions of infliximab but has been non-compliant with follow up since September. Patient has a history of pain med seeking behavior with history of multiple physicians prescribing percocet. Patient has been admitted here several times in the past few months for IV vancomycin, linezolid, and zosyn for his abscesses and was just discharged on 12/08 with PO antibiotics and short dose of percocet. During patient's hospitalization on 11/22 patient was found to have right abdominal abscess with several cutaneous fistulas and small gluteal abscesses. IR, GI, and surgery were consulted at that time. IR determined abscess was too small to drain, GI said patient needs to be compliant with follow up with GI in [facility], and surgery recommended follow up with a colorectal surgeon at [facility]--which patient has not done. CT 11/26 showed no great change, and again patient was referred to [facility] and did not follow up. Current afebrile, VSS No leukocytosis, H/H: 7.7/25.2 Received one unit PRBC per ED doc orders Review of Systems - Review of Systems All systems: reviewed and no additional remarkable complaints except - Constitutional Constitutional: As Per HPI, Fatigue. absent: Excessive Sweating, Frequent Falls , Headache - EENT Eyes: absent: Change in Vision - Cardiovascular Cardiovascular: As Per HPI. absent: Chest Pain, Chest Pain at Rest, Leg Edema, Palpitations - Respiratory Respiratory: As Per HPI. absent: Cough, Dyspnea, Hemoptysis, Dyspnea on Exertion - Gastrointestinal Gastrointestinal: As Per HPI - Genitourinary Genitourinary: As Per HPI - Musculoskeletal Musculoskeletal: As Per HPI. absent: Numbness, Tingling - Neurological Neurological: As Per HPI. absent: Disequilibrium, Numbness, Lack of Coordination, Tingling - Psychiatric Psychiatric: absent: Hopelessness - Endocrine Endocrine: Fatigue. absent: Palpitations Past Patient History - Infectious Disease Hx of Infectious Diseases: None - Past Medical History & Family History Past Medical History?: Yes Past Family History: Reviewed and not pertinent - Past Social History Smoking Status: Never Smoked Chewing Tobacco Use: No Cigar Use: No Alcohol: None Drugs: Denies Home Situation {Lives}: With Family Domestic Violence: Negative - CARDIAC Hx Cardiac Disorders: No - PULMONARY Hx Respiratory Disorders: No - NEUROLOGICAL Hx Neurological Disorder: No - HEENT Hx HEENT Problems: No - RENAL Hx Chronic Kidney Disease: No - ENDOCRINE/METABOLIC Hx Endocrine Disorders: No - HEMATOLOGICAL/ONCOLOGICAL Hx Blood Disorders: No - INTEGUMENTARY Hx Dermatological Problems: No - MUSCULOSKELETAL/RHEUMATOLOGICAL Hx Falls: No - GASTROINTESTINAL Hx Colostomy: Yes (R back) Hx Crohn's Disease: Yes Other/Comment: GI surgeries - GENITOURINARY/GYNECOLOGICAL Hx Genitourinary Disorders: No - PSYCHIATRIC Hx Psychophysiologic Disorder: No Hx Substance Use: No - SURGICAL HISTORY Other/Comment: Abd surg. for intraabd. abscesses x 7 last surgery 10/2016 at [facility] - ANESTHESIA Hx Anesthesia: Yes Hx Anesthesia Reactions: No Hx Malignant Hyperthermia: No Meds Allergies/Adverse Reactions: Allergies Allergy/AdvReac Type Severity Reaction Status Date / Time FISH Allergy RASH Verified 12/04/16 13:24 shellfish derived AdvReac ANGIOEDEMA Verified 12/04/16 13:24 - Medications Medications: Current Medications Hydromorphone HCl (Dilaudid) 0.5 mg IVP Q3H PRN PRN Reason: Pain, moderate (4-7) Last Admin: 12/12/16 01:43 Dose: 0.5 mg Hydromorphone HCl (Dilaudid) 1 mg IVP Q3H PRN PRN Reason: Pain, severe (8-10) Last Admin: 12/12/16 05:05 Dose: 1 mg Linezolid (Zyvox 600mg/300ml D5w) 300 mls @ 200 mls/hr IVPB Q12 BRYANT PRN Reason: Protocol Stop: 12/12/16 11:29 Micafungin Sodium 100 mg/ (Sodium Chloride) 100 mls @ 100 mls/hr IV DAILY BRYANT PRN Reason: Protocol Stop: 12/12/16 10:59 Sodium Chloride (Sodium Chloride 0.9%) 1,000 mls @ 100 mls/hr IV .Q10H BRYANT Last Admin: 12/12/16 01:43 Dose: 100 mls/hr Piperacillin Sod/Tazobactam Sod (Zosyn 3.375 In Ns 100ml) 100 mls @ 200 mls/hr IVPB Q6 BRYANT PRN Reason: Protocol Stop: 12/12/16 12:29 Pantoprazole Sodium (Protonix Ec Tab) 40 mg PO 0630 [facility] Physical Exam - Constitutional Appears: Well, Non-toxic, No Acute Distress - Head Exam Head Exam: ATRAUMATIC, NORMOCEPHALIC - Eye Exam Eye Exam: Normal appearance. absent: Conjunctival injection, Scleral icterus - ENT Exam ENT Exam: Mucous Membranes Moist, Normal Oropharynx - Neck Exam Neck exam: Positive for: Normal Inspection - Respiratory Exam Respiratory Exam: NORMAL BREATHING PATTERN. absent: Accessory Muscle Use, Respiratory Distress - Cardiovascular Exam Cardiovascular Exam: RRR - GI/Abdominal Exam GI & Abdominal Exam: Soft, Tenderness (RLQ to palpation). absent: Distended Additional comments: 1 skin lesion just infraumbilical approximately 0.5cm with moderate muco- purulent drainage. 1 skin lesion approximately 0.5 cm in the RLQ with mild mucopurulen drainage. 1 skin lesion approximately 0.5cm in the RUQ with scant mucopurulent drainage expressible. No erythema, swelling, or fluctuance in the tissues surrounding the lesions - Extremities Exam Extremities exam: Positive for: pedal pulses present. Negative for: calf tenderness, pedal edema, tenderness - Back Exam Additional comments: Skin lesion in the right flank approximately 1.5cm in diameter with colostomy bag over top with approximately 15cc of muco-purulent fluid drainage. No surrounding erythema or swelling or fluctuance but surrounding tissues tender to palpation - Neurological Exam Neurological exam: Alert, Oriented x3 - Psychiatric Exam Psychiatric exam: Normal Affect, Normal Mood - Skin Skin Exam: Dry, Normal Color, Warm Results - Vital Signs Recent Vital Signs: Last Vital Signs Temp 98.8 F 12/12/16 04:59 Pulse 92 H 12/12/16 04:59 Resp 20 12/12/16 04:59 BP 151/84 H 12/12/16 04:59 Pulse Ox 100 12/12/16 00:56 - Labs Result Diagrams: 12/11/16 22:58 12/11/16 22:58 Assessment & Plan - Assessment and Plan (Free Text) Assessment: 21M with crohns, chronic intra-abdominal abscess with multiple cutaneous fistulas, with anemia and syncope afebrile, VSS, no leukocytosis Plan - no indication for surgery at this time - f/u AM labs - IV antibiotics - reasonable pain management - GI ppx - regular diet - dressing changes with gauze as needed for the abdominal fistulas - f/u with appointment with his GI doctor on Monday for infliximab infusion - further recs per Dr. Mckeon Thank you for this consult Magalys Rossi, PGY1
[2016-12-12] MEDS: Piperacillin/Tazobact 3.375 gm 100 ML IVPB SCH ×4 (06:17→23:05)
[2016-12-12] MEDS: Pantoprazole 40 mg EC Tab PO SCH (06:18)
--- NOTE | 2016-12-12 09:23 | RAD ---
PROCEDURE: Radiographs of the right elbow. HISTORY: elbow pain s/p fall COMPARISON: No prior. FINDINGS: BONES: Bone alignment and mineralization are normal. No acute fracture. JOINTS: Normal. SOFT TISSUES: Normal. JOINT EFFUSION: None. OTHER FINDINGS: None. IMPRESSION: No acute fracture or dislocation.
--- NOTE | 2016-12-12 09:25 | RAD ---
PROCEDURE: Right Hip Radiographs. HISTORY: hip pain s/p syncope COMPARISON: None. FINDINGS: BONES: There is no acute fracture or bone destruction. Bone alignment and mineralization are normal. A focal area of sclerosis in the left acetabulum is statistically most compatible with a bone island. JOINTS: The hip joint spaces are preserved. SOFT TISSUES: Normal. OTHER FINDINGS: None. IMPRESSION: No acute fracture or dislocation.
--- NOTE | 2016-12-12 09:32 | RAD ---
PROCEDURE: Radiographs of the Chest and Right Ribs. HISTORY: syncope/ pain COMPARISON: None available. TECHNIQUE: Frontal radiograph of the chest and multiple oblique radiographs of the right ribs were obtained. FINDINGS: RIGHT RIBS: No fracture or focal lesion visualized. LUNGS: Clear. PLEURA: No pneumothorax or pleural fluid. CARDIOVASCULAR: Normal sized heart. No pulmonary vascular congestion. OTHER FINDINGS: None. IMPRESSION: Unremarkable radiographs of the chest and right ribs. No right rib fracture.
[2016-12-12] MEDS ORDERED: Linezolid 600 mg in D5W 300 ml 300 ML IVPB SCH (10:00)
[2016-12-12] MEDS ORDERED: Micafungin 100 MG in Sodium Chloride 0.9% 100 ML IV SCH (10:00)
--- NOTE | 2016-12-12 10:02 | CON ---
DATE: 12/12/2016 INDICATIONS: Syncopal spell. HISTORY OF PRESENT ILLNESS: This is a 21-year-old male with Crohn's disease with intra-abdominal abscesses and enterocutaneous fistula, severe anemia who passed out at home yesterday. He was out during the day. When he came home, he got up from a sitting position and passed out. He briefly saw black and stars, and then went to the ground. He does not really recall the details. At this time, he does not want to talk about it because he has told so many other physicians. I have reviewed the hospital record to get a sense for his description of the events. He has had prior syncope. He has undergone a workup at [facility] previously and was told that it was not a cardiac cause. There was no chest pain, shortness of breath, orthopnea, PND, palpitations, edema, or claudication. There was no fever, chills, cough, sputum production, or hemoptysis. There was no evidence of seizure activity. He felt well shortly after the event. PAST MEDICAL HISTORY: Complex. He has had Crohn's disease for several years. He has multiple abscesses and fistulas. He is under the care of physicians in [facility]. He is on infliximab infusions. He has chronic pain. There is a history of opioid abuse, anemia, syncope, but no rheumatic fever, myocardial infarction, angina, congestive heart failure, arrhythmia, stroke, TIA, diabetes, hypertension, hyperlipidemia, or gout. MEDICATIONS: At the time of admission included Zyvox, Percocet, and weekly infliximab infusions. ALLERGIES: HE NOTES AN ALLERGY TO SHELLFISH. FAMILY HISTORY: Not notable for syncope. There is heart attack in his family, cancer, and hypertension. SOCIAL HISTORY: He does not smoke cigarettes. He does not drink alcohol significantly. He is unemployed. He lives at home with his mother. REVIEW OF SYSTEMS: A 10-point review of systems is limited, but otherwise unremarkable except as noted above. PHYSICAL EXAMINATION: GENERAL: He is a well-developed male in no acute distress. VITAL SIGNS: Unremarkable. He is afebrile. Blood pressure 143/85, pulse 80 sinus rhythm, respirations 16, O2 sat 100% on room air. HEENT: Reveals no neck-vein distention, thyromegaly, or carotid bruits. Mucous membranes are moist. Conjunctivae are pale. NECK: Supple. LUNGS: Lung vickers are clear. HEART: Revealed normal first and second heart sounds. No murmur, gallop, rub, or click. ABDOMEN: Soft. Bowel sounds are present. There are enterocutaneous fistulas noted. NEUROLOGIC: He was awake, ,alert and oriented. EXTREMITIES: No cyanosis, clubbing, or edema. LABORATORY AND IMAGING: A CT scan of the head reveals no acute intracranial hemorrhage or suspicious mass effect. A portable chest x-ray is unremarkable by my reading. EKG demonstrates regular sinus rhythm, LVH by voltage, mild J-point elevation. He also had x-rays of the ribs, hips, pelvis, and elbow. Apparently, these were unremarkable, but they are not yet interpreted by the radiologist. White count normal, hemoglobin 7.7, hematocrit 25.2, platelet count 685,000. Electrolytes, BUN, creatinine, blood sugar, LFTs, CK, troponin are all unremarkable. Amylase and lipase are normal. IMPRESSION: The patient is a 21-year-old man with a syncopal episode. This is probably multifactorial given his severe anemia, propensity towards dehydration due to Crohn's disease, with abdominal abscesses and enterocutaneous fistula, chronic pain with Percocet use, and uncertain nutritional status. He has undergone a previous workup at [facility], and no cardiac cause for syncope was found at that time. I would check his postural vital signs. He is having evaluations by surgery, ID , and GI. Plans for transfusion are underway. We should review his old records. He is getting antibiotics. He has been cultured. We await the radiologist's review of the x-rays done. An echocardiogram is ordered. I will review it once it is done. He can be out of bed to chair. Stool should be checked for occult blood. I will follow along with you as needed and make additional recommendations based on his clinical course. Mejia Sage MD cc: [phone] TT: 12/12/2016 10:01:52 Confirmation # [id number] Dictation # [id number] darlene EASON
[2016-12-12 10:10] LABS: ADD MANUAL DIFF? NO
[2016-12-12 10:19] LABS: BASO # 0.02 K/mm3 (0.0-2.0); BASO % 0.3 % (0.0-3.0); EOS # 0.1 (0.0-0.7); EOS % 1.8 % (1.5-5.0); GRAN # 5.29 (1.4-6.5); HEMATOCRIT 27.6 % (42.0-52.0); LYMPH # 0.7 (1.2-3.4); LYMPH % 10.8 % (22.0-35.0); MEAN CELL VOLUME 71.7 fL (80.0-105.0); MEAN CORPUSCULAR HEMOGLOBIN 22.1 pg (25.0-35.0); MEAN CORPUSCULAR HGB CONC 30.8 g/dl (31.0-37.0); MEAN PLATELET VOLUME 7.7 fl (7.0-11.0); MONO # 0.6 (0.1-0.6); MONO % 9.1 % (1.0-6.0); PLATELET COUNT 580 10^3/uL (120.0-450.0); RED CELL DISTRIBUTION WIDTH 21.2 % (11.5-14.5); WHITE BLOOD COUNT 6.8 10^3/ul (4.5-11.0)
[2016-12-12 10:22] LABS: INR 1.11 (0.93-1.08)
[2016-12-12 10:23] LABS: ALB/GLOB RATIO 0.8 (1.1-1.8); ALKALINE PHOSPHATASE 75 U/L (38-133); ALT/SGPT 30 U/L (7-56); AST/SGOT 28 U/L (15-59); BILIRUBIN,TOTAL 0.3 mg/dL (0.2-1.3); BLOOD UREA NITROGEN 4 mg/dL (7-21); CALCIUM 8.4 mg/dL (8.4-10.5); CARBON DIOXIDE 28 mmol/L (21-33); CHLORIDE 102 mmol/L (98-107); GFR AFRICAN-AMERICAN > 60; GLUCOSE,RANDOM 95 mg/dL (70-110); POTASSIUM 3.3 mmol/L (3.6-5.0); SODIUM 140 mmol/L (132-148); TOTAL PROTEIN 7.4 g/dL (5.8-8.3)
[2016-12-12 10:40] LABS: TROPONIN I < 0.01 ng/mL
--- NOTE | 2016-12-12 16:23 | CARD ---
APPROVED REPORT EKG Measurement Heart [id number] <Conclusion> Normal sinus rhythm Minimal voltage criteria for LVH, may be normal variant Borderline ECG
--- NOTE | 2016-12-12 17:04 | CON ---
DATE: 12/12/2016 The patient is in bed, was seen earlier today in the ICU, 128, bed 5. CHIEF COMPLAINT: Weakness. HISTORY OF PRESENT ILLNESS: This is a 21-year-old male, recent hospitalization with the patien t with a past medical history significant for Crohn's disease diagnosed 2 years ago with iron deficie ncy anemia, who recently was in the hospital. On this admission, the patient was admitted with a syn cope and anemia diagnosis. He has had also multiple abscesses with fistula formation. ALLERGIES: SHELLFISH. HOME MEDICATIONS: The patient was on Zyvox, recently discharged by Dr. Cleveland and the patient had on the last admission sepsis secondary to an enterocutaneous fistula and a phlegmon, microabscess and art d VRE, was on Zyvox and Zosyn and was getting the antibiotics at home according to the resident juventino hinojosa for the patient in the unit. The patient stated that he is not taking any intravenous antibiotics a t home. PAST MEDICAL HISTORY: Crohn's disease and iron deficiency anemia, multiple abdominal surgeries. PAST SURGICAL HISTORY: Significant for multiple abdominal surgeries. ALLERGIES: FISH AND SHELLFISH. MEDICATIONS AT HOME: Included Zyvox and pain medications. PHYSICAL EXAMINATION: GENERAL: He is in bed, answering questions appropriately. He had no fevers, no chills and he has had no abdominal pain. VITAL SIGNS: A temperature of 98, heart rate of 92, respiratory rate of 20, blood pressure is 150/80. HEENT: Unremarkable. NECK: Supple. LUNGS: Have decreased breath sounds. HEART: Normal S1, S2. ABDOMEN: Soft, nontender. LABORATORY EXAMINATION: Reveals a white count of 7.7, hemoglobin of 7. BUN of 6, creatinine of 0.8. Microbiology reveals the patient's abdominal wound cultures are VRE and all the blood cultures to be negative. Dr. Mejia Sage's note is reviewed and Dr. Magalys Rossi'. ASSESSMENT AND PLAN: This is a 21-year-old male with Crohn's disease, iron deficiency anemia, abdominal abscesses and fist ulas, now admitted with syncope, workup in progress. Would recommend the completion of the antibioti cs as recommended by Dr. Cleveland on the last admission and will follow the patient closely. Case discu ssed with surgical team and residents at length. Jesse Wang MD cc: [id number] TT: 12/12/2016 17:03:51 Confirmation # [id number] Dictation # [id number] ln
[2016-12-13] MEDS: HYDROmorphone 1 mg/ml ISec IVP PRN ×5 (02:13→13:54)
[2016-12-13] MEDS: Piperacillin/Tazobact 3.375 gm 100 ML IVPB SCH ×2 (06:12→12:17)
[2016-12-13] MEDS: Pantoprazole 40 mg EC Tab PO SCH (06:12)
[2016-12-13 07:44] LABS: ADD MANUAL DIFF? NO
[2016-12-13 08:00] LABS: INR 1.15 (0.93-1.08)
[2016-12-13 08:01] LABS: BASO # 0.02 K/mm3 (0.0-2.0); BASO % 0.2 % (0.0-3.0); EOS # 0.1 (0.0-0.7); EOS % 0.9 % (1.5-5.0); GRAN # 6.14 (1.4-6.5); GRAN % 76.2 % (50.0-68.0); HEMATOCRIT 26.2 % (42.0-52.0); LYMPH # 0.8 (1.2-3.4); LYMPH % 10.3 % (22.0-35.0); MEAN CELL VOLUME 71.2 fL (80.0-105.0); MEAN CORPUSCULAR HEMOGLOBIN 22.6 pg (25.0-35.0); MEAN CORPUSCULAR HGB CONC 31.7 g/dl (31.0-37.0); MEAN PLATELET VOLUME 7.9 fl (7.0-11.0); MONO % 12.4 % (1.0-6.0); PLATELET COUNT 579 10^3/uL (120.0-450.0); RED CELL DISTRIBUTION WIDTH 20.9 % (11.5-14.5); WHITE BLOOD COUNT 8.1 10^3/ul (4.5-11.0)
[2016-12-13 08:06] LABS: PARTIAL THROMBOPLASTIN TIME 35.7 Seconds (23.7-30.8)
[2016-12-13] MEDS: Sodium Chloride 0.9% 1,000 ML IV SCH (08:06)
[2016-12-13 08:11] LABS: ALB/GLOB RATIO 0.8 (1.1-1.8); ALKALINE PHOSPHATASE 72 U/L (38-133); ALT/SGPT 18 U/L (7-56); AST/SGOT 30 U/L (15-59); BILIRUBIN,TOTAL 0.2 mg/dL (0.2-1.3); BLOOD UREA NITROGEN 4 mg/dL (7-21); CALCIUM 8.3 mg/dL (8.4-10.5); CARBON DIOXIDE 28 mmol/L (21-33); CHLORIDE 100 mmol/L (95-110); GFR AFRICAN-AMERICAN > 60; GLUCOSE,RANDOM 92 mg/dL (70-110); POTASSIUM 3.2 mmol/L (3.6-5.0); SODIUM 138 mmol/L (132-148); TOTAL PROTEIN 6.9 g/dL (5.8-8.3)
[2016-12-13] MEDS ORDERED: Potassium Chloride 20 mEq ER Tab PO ONE (08:49)
--- NOTE | 2016-12-13 08:59 | CARD ---
APPROVED REPORT EXAM: Two-dimensional and M-mode echocardiogram with Doppler and color Doppler. Other Information Quality : AverageRhythm : INDICATION Syncope 2D DIMENSIONS Left Atrium (2D)3.9 (1.6-4.0cm)IVSd0.9 (0.7-1.1cm) LVDd4.3 (3.9-5.9cm)PWd1.0 (0.7-1.1cm) LVDs3.1 (2.5-4.0cm)FS (%) 29.3 % LVEF (%)56.0 (>50%) M-Mode DIMENSIONS Aortic Root2.90 (2.2-3.7cm)Aortic Cusp Exc.2.20 (1.5-2.0cm) Aortic Valve AoV Peak Csxgryqv409.0cm/sLVOT Peak Tabhnitn071.0cm/sLVOT VTI26.60cm Mitral Valve MV E Mwrkxqdd38.7cm/sMV A Cmqdmagu88.2cm/sE/A ratio1.7 TDI Lateral E' Peak V18.70cm/sMedial E' Peak V11.50cm/sE/Lateral E'5.2 E/Medial E'8.4 Pulmonary Valve PV Peak Kdqcxnkd03.4cm/sPV Peak Grad.3mmHg Tricuspid Valve TR Peak Mpuqxsiq911fi/sRAP XQREOQGF24yqNeYI Peak Gr.28mmHg [id number] LEFT VENTRICLE The left ventricle is normal size. There is normal left ventricular wall thickness. The left ventricular function is normal. The left ventricular ejection fraction is within the normal range. There is normal LV segmental wall motion. RIGHT VENTRICLE The right ventricle is normal size. ATRIA The left atrium size is normal. The right atrium size is normal. The interatrial septum is intact with no evidence for an atrial septal defect. AORTIC VALVE The aortic valve is normal in structure. MITRAL VALVE The mitral valve is normal in structure. Mitral regurgitation is trace. TRICUSPID VALVE The tricuspid valve is normal in structure. There is trace tricuspid regurgitation. PULMONIC VALVE The pulmonic valve is not well visualized. GREAT VESSELS The aortic root is normal in size. PERICARDIAL EFFUSION There is no pericardial effusion. <Conclusion> The left ventricle is normal size. There is normal left ventricular wall thickness. The left ventricular function is normal.
[2016-12-13 10:03] VITALS: BP 123/71; PULSE 93; RESP 20; TEMP 98.4; O2SAT 98
--- NOTE | 2016-12-13 12:55 | CP.PCM.PN ---
Subjective - Date & Time of Evaluation Date of Evaluation: 12/13/16 Time of Evaluation: 06:30 - Subjective Subjective: Surgery Progress note. Dr. Mckeon Pt seen and evaluated at bedside. No acute events overnight. Still with purulent drainage from fistulas. Abd pain improved compared to previous. No N/V/ D. No F/C. Denies any more episodes of dizziness. Objective - Vital Signs/Intake and Output Vital Signs (last 24 hours): Temp Pulse Resp BP Pulse Ox 98.4 F 93 H 20 123/71 98 12/13/16 06:00 12/13/16 06:00 12/13/16 06:00 12/13/16 06:00 12/13/16 06:00 Intake and Output: 12/13/16 12/13/16 06:59 18:59 Intake Total 360 Output Total 1000 Balance -640 - Medications Medications: Current Medications Hydromorphone HCl (Dilaudid) 0.5 mg IVP Q3H PRN PRN Reason: Pain, moderate (4-7) Last Admin: 12/12/16 01:43 Dose: 0.5 mg Hydromorphone HCl (Dilaudid) 1 mg IVP Q3H PRN PRN Reason: Pain, severe (8-10) Last Admin: 12/13/16 11:04 Dose: 1 mg Sodium Chloride (Sodium Chloride 0.9%) 1,000 mls @ 100 mls/hr IV .Q10H BRYANT Last Admin: 12/13/16 08:06 Dose: 100 mls/hr Piperacillin Sod/Tazobactam Sod (Zosyn 3.375 In Ns 100ml) 100 mls @ 200 mls/hr IVPB Q6 BRYANT PRN Reason: Protocol Stop: 12/19/16 18:01 Last Admin: 12/13/16 12:17 Dose: 200 mls/hr Linezolid (Zyvox) 600 mg PO BID BRYANT PRN Reason: Protocol Stop: 12/19/16 18:01 Last Admin: 12/13/16 09:31 Dose: 600 mg Pantoprazole Sodium (Protonix Ec Tab) 40 mg PO 0630 BRYANT Last Admin: 12/13/16 06:12 Dose: 40 mg - Labs Labs: 12/13/16 07:00 12/13/16 07:00 PT 12.4 Seconds (9.9-11.8) H 12/13/16 07:00 INR 1.15 (0.93-1.08) H 12/13/16 07:00 APTT 35.7 Seconds (23.7-30.8) H 12/13/16 07:00 - Constitutional Appears: Well, No Acute Distress - Head Exam Head Exam: ATRAUMATIC, NORMAL INSPECTION, NORMOCEPHALIC - Eye Exam Eye Exam: EOMI, Normal appearance, PERRL. absent: Scleral icterus Pupil Exam: PERRL - ENT Exam ENT Exam: Mucous Membranes Moist - Neck Exam Neck Exam: Full ROM - Respiratory Exam Respiratory Exam: NORMAL BREATHING PATTERN. absent: Wheezes - Cardiovascular Exam Cardiovascular Exam: RRR. absent: JVD - GI/Abdominal Exam GI & Abdominal Exam: Soft Additional comments: Multiple cutaneous fistulas. Draining large amount of purulent drainage. - Extremities Exam Extremities Exam: Normal Inspection - Neurological Exam Neurological Exam: Alert, Awake, Oriented x3 - Psychiatric Exam Psychiatric exam: Normal Affect, Normal Mood - Skin Additional comments: Multiple abdominal cutaneous fistulas. Large amount of purulent drainage from Right hip cutaneous fistula. Assessment and Plan - Assessment and Plan (Free Text) Assessment: 21yo M with PMHx of Chron's, chronic intra-abdominal abscesses here for syncope secondary to anemia. Surgery consulted for cutaneous fistulas. - Afebrile - No Leukocytosis - no plan for surgery at this time. - Continue antibiotics - pain management - regular diet - dressing changes with gauze as needed for the abdominal fistulas - f/u with his out-patient GI doctor Discussed case with Dr. Mike Hernandez PGY1
--- NOTE | 2016-12-13 14:07 | PN ---
DATE: 12/13/2016 The patient is in bed, in no acute distress, nontoxic. No fevers and no chills. PHYSICAL EXAMINATION: VITAL SIGNS: Temperature is 98, blood pressure is 120/70, respiratory rate of 16. HEENT: Unremarkable. NECK: Supple. LUNGS: Have decreased breath sounds. HEART: Normal S1, S2. ABDOMEN: Soft, nontender. LABORATORY DATA: Reveals a white count of 8.1, hemoglobin of 8, platelets of 579. Chemistries are n oted. Microbiology reveals the blood cultures are no growth. The patient on Zosyn and Zyvox at this time. ____ progress note is appreciated. ASSESSMENT AND PLAN: This is a 21-year-old with Crohn's disease, chronic intraabdominal abscesses, h ere for syncope secondary to anemia in this patient who was admitted with syncope. Workup in [facility] s. Complete the recommended antibiotics as recommended and Zyvox for the vancomycin-resistant Entero cocci. Jesse Wang MD cc: [id number] TT: 12/13/2016 14:07:32 Confirmation # [id number] Dictation # [id number] mn
--- NOTE | 2016-12-13 15:54 | CP.PCM.DIS ---
<Carmen Valadez - Last Filed: 12/13/16 15:51> Provider - Provider Date of Admission: 12/12/16 00:55 Attending physician: Alecia Heredia MD Primary care physician: Brendan Ward MD Consults: ID- Dr. Cleveland Surgery- Dr. Mckeon Time Spent in preparation of Discharge (in minutes): 45 Diagnosis - Discharge Diagnosis (1) Dehydration Status: Acute (2) Crohn's disease Status: Acute (3) Intra-abdominal abscess Status: Acute Hospital Course - Lab Results Lab Results: Micro Results 12/12/16 03:30 Blood-Venous Blood Culture - Preliminary NO GROWTH AFTER 24 HOURS 12/12/16 02:01 Blood-Venous Blood Culture - Preliminary NO GROWTH AFTER 24 HOURS Most Recent Lab Values WBC 8.1 10^3/ul (4.5-11.0) 12/13/16 07:00 RBC 3.68 10^6/uL (3.5-6.1) 12/13/16 07:00 Hgb 8.3 gm/dL (14.0-18.0) L 12/13/16 07:00 Hct 26.2 % (42.0-52.0) L 12/13/16 07:00 MCV 71.2 fL (80.0-105.0) L 12/13/16 07:00 MCH 22.6 pg (25.0-35.0) L 12/13/16 07:00 MCHC 31.7 g/dl (31.0-37.0) 12/13/16 07:00 RDW 20.9 % (11.5-14.5) H 12/13/16 07:00 Plt Count 579 10^3/uL (120.0-450.0) H 12/13/16 07:00 MPV 7.9 fl (7.0-11.0) 12/13/16 07:00 Gran % 76.2 % (50.0-68.0) H 12/13/16 07:00 Lymph % (Auto) 10.3 % (22.0-35.0) L 12/13/16 07:00 [place] % (Auto) 12.4 % (1.0-6.0) H 12/13/16 07:00 Eos % (Auto) 0.9 % (1.5-5.0) L 12/13/16 07:00 Baso % (Auto) 0.2 % (0.0-3.0) 12/13/16 07:00 Gran # 6.14 (1.4-6.5) 12/13/16 07:00 Lymph # 0.8 (1.2-3.4) L 12/13/16 07:00 [place] # 1.0 (0.1-0.6) H 12/13/16 07:00 Eos # 0.1 (0.0-0.7) 12/13/16 07:00 Baso # 0.02 K/mm3 (0.0-2.0) 12/13/16 07:00 PT 12.4 Seconds (9.9-11.8) H 12/13/16 07:00 INR 1.15 (0.93-1.08) H 12/13/16 07:00 APTT 35.7 Seconds (23.7-30.8) H 12/13/16 07:00 Sodium 138 mmol/L (132-148) 12/13/16 07:00 Potassium 3.2 mmol/L (3.6-5.0) L 12/13/16 07:00 Chloride 100 mmol/L (95-110) 12/13/16 07:00 Carbon Dioxide 28 mmol/L (21-33) 12/13/16 07:00 Anion Gap 13 (10-20) 12/13/16 07:00 BUN 4 mg/dL (7-21) L 12/13/16 07:00 Creatinine 0.8 mg/dL (0.5-1.4) 12/13/16 07:00 Est GFR ( Amer) > 60 12/13/16 07:00 Est GFR (Non-Af Amer) > 60 12/13/16 07:00 Random Glucose 92 mg/dL (70-110) 12/13/16 07:00 Calcium 8.3 mg/dL (8.4-10.5) L 12/13/16 07:00 Total Bilirubin 0.2 mg/dL (0.2-1.3) 12/13/16 07:00 AST 30 U/L (15-59) 12/13/16 07:00 ALT 18 U/L (7-56) 12/13/16 07:00 Alkaline Phosphatase 72 U/L (38-133) 12/13/16 07:00 Lactate Dehydrogenase 269 U/L (333-699) L 12/12/16 10:00 Total Creatine Kinase 39 U/L (35-230) 12/12/16 10:00 Troponin I < 0.01 ng/mL 12/12/16 10:00 C-React Prot High Sens > 15.00 mg/L (1.00-3.00) H 12/11/16 22:58 Total Protein 6.9 g/dL (5.8-8.3) 12/13/16 07:00 Albumin 3.0 g/dL (3.0-4.8) 12/13/16 07:00 Globulin 3.9 gm/dL 12/13/16 07:00 Albumin/Globulin Ratio 0.8 (1.1-1.8) L 12/13/16 07:00 Amylase 92 U/L (35-125) 12/11/16 22:58 Lipase 62 U/L (23-300) 12/11/16 22:58 Vitamin B12 544 pg/mL (239-931) 12/11/16 22:58 25-OH Vitamin D Total 13.8 NG/ML (30.0-100.0) L 12/11/16 22:58 Blood Type A POSITIVE 12/12/16 00:40 Antibody Screen Negative 12/12/16 00:40 Crossmatch See Detail 12/12/16 00:40 BBK History Checked Patient has bt 12/12/16 00:40 - Hospital Course Hospital Course: This is a 21 yo male with past medical hx Crohn's dx (diagnosed 2 years ago), iron deficiency anemia presenting with syncopal episode. Pt was at home when episode occurred. It was witnessed by his mother. It took place when the pt was standing upright, he had recently stood up. He had recently returned from walking to the store. He says it has happened before- 2 x before. One in summer 2015, one around 2015, he went to [facility] where he was told it was a result of dehydration. He was evaluated by a thread laster at that time who said it was not cardiac related. This time was different because he had visual sx and saw stars before the episode. He reports he lost postural tone and he felt dizzy prior. He dropped to the ground. His mother said he was out for 1 minute. He still felt dizzy and lightheaded for 15 mins afterwards. He was transported to hospital by ambulance. He reports eating 3 full meals throughout the day. Denies seizure activity, tongue biting, bladder, bowel incontinence. Denies chest pain and sob. Denies cough and vomiting. Reports 3 episodes of non bloody diarrhea today. Last colonoscopy approximately 8 months ago. Since patient complained of falling on his right side, patient had imaging of ribs, R hip and R elbow which were negative. Patient was also found to be anemic at 7.7 and symptomatic. He was transfused 1 unit. Patient had cardiac workup during his stay in order to rule out any cardiac structural disease or arrhythmias. Echocardiogram done was normal and EKG on admission was also NSR. Cardiology was consulted. 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 Therefore, he was started on the same antibiotics as he was given on previous stay. He was also discharged with Zyvox, which is what he was discharged with on last stay that he never completed. Surgery was also consulted for the fistulas but recommended no surgical intervention at this time. Patient is asked to follow up with PMD of his choice upon discharge Patient is to keep appoint with GI specialist for tomorrow Patient is discharged with the following medications: Zyvox 600 mg BID, Colace 100 mg QD, iron supplements QD. Scripts are sent to [facility] pharmacy. For complete details, please see NOV - Date & Time of H&P Date of H&P: 12/13/16 Time of H&P: 15:54 Discharge Exam - Head Exam Head Exam: ATRAUMATIC, NORMAL INSPECTION, NORMOCEPHALIC - Eye Exam Eye Exam: EOMI - ENT Exam ENT Exam: Mucous Membranes Moist - Respiratory Exam Respiratory Exam: Clear to PA & Lateral, NORMAL BREATHING PATTERN. absent: Accessory Muscle Use, Respiratory Distress - Cardiovascular Exam Cardiovascular Exam: REGULAR RHYTHM, +S1, +S2. absent: Diastolic murmur, Gallop , Rubs, Systolic Murmur - GI/Abdominal Exam GI & Abdominal Exam: Normal Bowel Sounds, Soft, Tenderness (at sight of fistulas ). absent: Distended, Firm, Guarding - Extremities Exam Additional comments: no pedal edema or tenderness - Neurological Exam Neurological exam: Alert, Oriented x3 - Psychiatric Exam Psychiatric exam: Normal Affect, Normal Mood - Skin Skin Exam: Dry, Normal Color, Warm Discharge Plan - Discharge Medications Prescriptions: Docusate [Colace] 100 mg PO DAILY #30 cap Ferrous Sulfate 325 mg PO DAILY #30 tablet Linezolid [Zyvox] 600 mg PO BID #12 tab - Follow Up Plan Condition: FAIR Disposition: HOME/ ROUTINE Instructions: Syncope (DC), Syncope (GEN) Additional Instructions: Patient is asked to follow up with PMD of his choice upon discharge Patient is to keep appoint with GI specialist for tomorrow - Patient is discharged with the following medications: Zyvox, Colace, iron supplements. Scripts are sent to [facility] pharmacy. Referrals: Brendan Ward MD [Primary Care Provider] - <Alecia Heredia - Last Filed: 12/13/16 17:24> Provider - Provider Date of Admission: 12/12/16 00:55 Attending physician: Alecia Heredia MD Primary care physician: Brendan Ward MD Hospital Course - Lab Results Lab Results: Micro Results 12/12/16 03:30 Blood-Venous Blood Culture - Preliminary NO GROWTH AFTER 24 HOURS 12/12/16 02:01 Blood-Venous Blood Culture - Preliminary NO GROWTH AFTER 24 HOURS Most Recent Lab Values WBC 8.1 10^3/ul (4.5-11.0) 12/13/16 07:00 RBC 3.68 10^6/uL (3.5-6.1) 12/13/16 07:00 Hgb 8.3 gm/dL (14.0-18.0) L 12/13/16 07:00 Hct 26.2 % (42.0-52.0) L 12/13/16 07:00 MCV 71.2 fL (80.0-105.0) L 12/13/16 07:00 MCH 22.6 pg (25.0-35.0) L 12/13/16 07:00 MCHC 31.7 g/dl (31.0-37.0) 12/13/16 07:00 RDW 20.9 % (11.5-14.5) H 12/13/16 07:00 Plt Count 579 10^3/uL (120.0-450.0) H 12/13/16 07:00 MPV 7.9 fl (7.0-11.0) 12/13/16 07:00 Gran % 76.2 % (50.0-68.0) H 12/13/16 07:00 Lymph % (Auto) 10.3 % (22.0-35.0) L 12/13/16 07:00 [place] % (Auto) 12.4 % (1.0-6.0) H 12/13/16 07:00 Eos % (Auto) 0.9 % (1.5-5.0) L 12/13/16 07:00 Baso % (Auto) 0.2 % (0.0-3.0) 12/13/16 07:00 Gran # 6.14 (1.4-6.5) 12/13/16 07:00 Lymph # 0.8 (1.2-3.4) L 12/13/16 07:00 [place] # 1.0 (0.1-0.6) H 12/13/16 07:00 Eos # 0.1 (0.0-0.7) 12/13/16 07:00 Baso # 0.02 K/mm3 (0.0-2.0) 12/13/16 07:00 PT 12.4 Seconds (9.9-11.8) H 12/13/16 07:00 INR 1.15 (0.93-1.08) H 12/13/16 07:00 APTT 35.7 Seconds (23.7-30.8) H 12/13/16 07:00 Sodium 138 mmol/L (132-148) 12/13/16 07:00 Potassium 3.2 mmol/L (3.6-5.0) L 12/13/16 07:00 Chloride 100 mmol/L (95-110) 12/13/16 07:00 Carbon Dioxide 28 mmol/L (21-33) 12/13/16 07:00 Anion Gap 13 (10-20) 12/13/16 07:00 BUN 4 mg/dL (7-21) L 12/13/16 07:00 Creatinine 0.8 mg/dL (0.5-1.4) 12/13/16 07:00 Est GFR ( Amer) > 60 12/13/16 07:00 Est GFR (Non-Af Amer) > 60 12/13/16 07:00 Random Glucose 92 mg/dL (70-110) 12/13/16 07:00 Calcium 8.3 mg/dL (8.4-10.5) L 12/13/16 07:00 Total Bilirubin 0.2 mg/dL (0.2-1.3) 12/13/16 07:00 AST 30 U/L (15-59) 12/13/16 07:00 ALT 18 U/L (7-56) 12/13/16 07:00 Alkaline Phosphatase 72 U/L (38-133) 12/13/16 07:00 Lactate Dehydrogenase 269 U/L (333-699) L 12/12/16 10:00 Total Creatine Kinase 39 U/L (35-230) 12/12/16 10:00 Troponin I < 0.01 ng/mL 12/12/16 10:00 C-React Prot High Sens > 15.00 mg/L (1.00-3.00) H 12/11/16 22:58 Total Protein 6.9 g/dL (5.8-8.3) 12/13/16 07:00 Albumin 3.0 g/dL (3.0-4.8) 12/13/16 07:00 Globulin 3.9 gm/dL 12/13/16 07:00 Albumin/Globulin Ratio 0.8 (1.1-1.8) L 12/13/16 07:00 Amylase 92 U/L (35-125) 12/11/16 22:58 Lipase 62 U/L (23-300) 12/11/16 22:58 Vitamin B12 544 pg/mL (239-931) 12/11/16 22:58 25-OH Vitamin D Total 13.8 NG/ML (30.0-100.0) L 12/11/16 22:58 Blood Type A POSITIVE 12/12/16 00:40 Antibody Screen Negative 12/12/16 00:40 Crossmatch See Detail 12/12/16 00:40 BBK History Checked Patient has bt 12/12/16 00:40 Attending/Attestation - Attestation I have personally seen and examined this patient.: Yes I have fully participated in the care of the patient.: Yes I have reviewed all pertinent clinical information, including history, physical exam and plan: Yes Notes (Text): I have seen and examined patient with the resident. Agree with the above note with the following additions/ exceptions: Briefly this is 21 year old male with a history of Crohn's disease, multiple surgeries, recurrent abscess drainage, Fistula and iron deficiency anemia who got admitted for near syncope which was most likely related to dehydration, anemia and poor po intake. He was given 1 unit of prbc and IV iron was given as well. He was explained that he should take po iron. CT head, Echo, ekg and troponin was normal.He has recurrent nonhealing Crohn's/fistula infection. On his last admission, cultures grew VRE which was treated with IV Zyvox, Zosyn and Micafungin.and he was discharged home on Po zyvox. During this admission, all meds were continued and he was discharged on zyvox as per ID recommendation. Upon discharge the patient will follow-up with PMD , Dr Danny Ruth, GI and colorectal surgery as outpatient. Patient has GI appointment tomorrow. Dr Alecia Heredia
== END 2016-12-13 15:09 | disposition home or self-care (01) | DRG 296 ==
LOC: ED 22:21 → OBSVTOIN 12-12 00:55 → ERH 12-12 00:55 → CCU 12-12 02:20 → 3RNO 12-12 22:58
PROVIDERS: ADMIT Internal Medicine; ATTEND Hospitalist
PROC: 30233N1 Transfusion of Nonautologous Red Blood Cells into Peripheral Vein, Percutaneous Approach (ICD-10-PCS; principal; 2016-12-12)
DX: E86.0 Dehydration (principal); K50.913 Crohn's disease, unspecified, with fistula; K50.914 Crohn's disease, unspecified, with abscess; R55 Syncope and collapse; F11.10 Opioid abuse, uncomplicated; D50.9 Iron deficiency anemia, unspecified; G89.29 Other chronic pain; Z93.3 Colostomy status; Z91.19 Patient's noncompliance with other medical treatment and regimen; Z91.013 Allergy to seafood; Z82.49 Family history of ischemic heart disease and other diseases of the circulatory system; Z91.81 History of falling

== ENCOUNTER 2016-12-14 06:09 | Emergency (ER) | payer MEDICAID ==
[2016-12-14 06:16] VITALS: BMI 22.9
[2016-12-14 06:19] VITALS: O2SAT 98
--- NOTE | 2016-12-14 07:37 | ED PDOC ---
Arrival/HPI - General Chief Complaint: Wound Check Time Seen by Provider: 12/14/16 06:15 - History of Present Illness Narrative History of Present Illness (Text): 12/14/16 07:49 21yo male presents to the ER complaining of pain from his chronic abscessed on his abdomen. pt states he ran out of percocet prescriptions. States he has no fevers or chills, states he has chronic drainage. denies any other complaints. states he would like a percocet or dilaudid in the ER and then he wants to be dc 'd. pt states he has an appt with his GI specialist Dr. Waite in [facility] at 13:30 today. Again, when asked about the abscesses, pt states he has a hx of Crohn's and that his abscesses and drainage are chronic. Previous records reviewed, pt was dc'd yesterday after evaluation of syncope. Past Medical History - Provider Review Nursing Documentation Reviewed: Yes - Infectious Disease Hx of Infectious Diseases: None - Cardiac Hx Cardiac Disorders: No - Pulmonary Hx Respiratory Disorders: No - Neurological Hx Neurological Disorder: No - HEENT Hx HEENT Disorder: No - Renal Hx Renal Disorder: No - Endocrine/Metabolic Hx Endocrine Disorders: No - Hematological/Oncological Hx Blood Disorders: No - Integumentary Hx Dermatological Disorder: No - Musculoskeletal/Rheumatological Hx Falls: No - Gastrointestinal Hx Colostomy: Yes (R back) Hx Crohn's Disease: Yes Other/Comment: GI surgeries - Genitourinary/Gynecological Hx Genitourinary Disorders: No - Psychiatric Hx Psychophysiologic Disorder: No Hx Substance Use: No - Surgical History Other/Comment: Abd surg. for intraabd. abscesses x 7 last surgery 10/2016 at [facility] [place] - Anesthesia Hx Anesthesia: Yes Hx Anesthesia Reactions: No Hx Malignant Hyperthermia: No - Suicidal Assessment Feels Threatened In Home Enviroment: No Family/Social History Family/Social History: Unknown Family HX Smoking Status: Never Smoked Hx Alcohol Use: No Hx Substance Use: No Allergies/Home Meds Allergies/Adverse Reactions: Allergies FISH Allergy (Verified 12/04/16 13:24) RASH shellfish derived Adverse Reaction (Verified 12/04/16 13:24) ANGIOEDEMA Physical Exam - Physical Exam Narrative Physical Exam (Text): 12/14/16 07:53 - Review of Systems Constitutional: Normal. absent: Fatigue, Weight Change, Fevers Eyes: Normal ENT: denies sore throat, denies tristhmus Respiratory: Normal. absent: SOB, Cough, Sputum Cardiovascular: absent: Chest Pain, Palpitations, Syncope Gastrointestinal: Normal. absent: Abdominal Pain, Diarrhea, Nausea, Vomiting Genitourinary: Normal. absent: Dysuria, Frequency, Hematuria Musculoskeletal: Normal. absent: Arthralgias, Back Pain, Neck Pain Skin: no rashes, no erythema Neurological: absent: Focal Weakness Endocrine: Normal Hemo/Lymphatic: Normal Psychiatric: No suicidal or homicidal ideations Physical exam Patient appears age appropriate in no distress, speaking full sentences without difficulty - Systems Exam Head: Present: Atraumatic, Normocephalic Pupils: Present: PERRL Extroacular Muscles: Present: EOMI Conjunctiva: Present: Normal Mouth: Present: Moist Mucous Membranes Neck: Present: Normal Range of Motion. No: MIDLINE TENDERNESS, Paraspinal Tenderness Respiratory/Chest: Present: Clear to Auscultation, Good Air Exchange. No: Respiratory Distress, Accessory Muscle Use, Tachypneic Cardiovascular: Present: Regular Rate and Rhythm, Normal S1, S2, Peripheal Pulses Present. No: Murmurs Abdomen: Present: Normal Bowel Sounds. Multiple nontender abscesses located on patient's stomach and side. No surrounding cellulitis, no erythema, no fluctuance No: Tenderness, Distention, Peritoneal Signs, Rebound, Guarding Back: Present: Normal Inspection. No: Midline Tenderness, Paraspinal Tenderness Upper Extremity: Present: Normal Inspection. No: Cyanosis, Edema Lower Extremity: Present: Normal Inspection. No: Edema Neurological: Present: GCS=15, Speech Normal, cranial nerves II through XII fully intact with no cerebellar abnormality, neurosensory fully intact. No focal neurological deficits. Skin: Present: Warm, Dry, Normal Color. No: Rashes Lymphatic: Present: OX3, NI, NC Psychiatric: Present: Alert, Oriented x 3, Normal Insight, Normal Concentration Vital Signs Reviewed: Yes Vital Signs Temp Pulse Resp BP Pulse Ox 12/14/16 06:28 98.2 F 81 16 98 12/14/16 06:16 98 F 81 18 128/80 98 Temperature: Afebrile Blood Pressure: Normal Pulse: Regular Respiratory Rate: Normal Appearance: Positive for: Well-Appearing Pain Distress: None Mental Status: Positive for: Alert and Oriented X 3 Medical Decision Making ED Course and Treatment: Pt states he understands to return to the ER right away for new or worsening symptoms or for inability to f/u with PMD or specialist as instructed. Patient states that he fully agrees with and understands discharge instructions. States that he agrees with the plan and disposition. Verbalized and repeated discharge instructions and plan. I have given the patient opportunity to ask any additional questions. - Medication Orders Current Medication Orders: Discontinued Medications Oxycodone/Acetaminophen (Percocet 10/325 Mg Tab) 1 tab PO STAT STA Stop: 12/14/16 07:39 Last Admin: 12/14/16 07:42 Dose: 1 TAB - Scribe Statement The provider has reviewed the documentation as recorded by the James Chester Provider Scribe Attestation: All medical record entries made by the Scribe were at my direction and personally dictated by me. I have reviewed the chart and agree that the record accurately reflects my personal performance of the history, physical exam, medical decision making, and the department course for this patient. I have also personally directed, reviewed, and agree with the discharge instructions and disposition. Disposition/Present on Arrival - Present on Arrival Any Indicators Present on Arrival: No History of DVT/PE: No History of Uncontrolled Diabetes: No Urinary Catheter: No History of Decub. Ulcer: No History Surgical Site Infection Following: None - Disposition Have Diagnosis and Disposition been Completed?: Yes Diagnosis: Intra-abdominal abscess Disposition: HOME/ ROUTINE Disposition Time: 07:33 Patient Plan: Discharge Patient Problems: Current Active Problems Problem Status Diagnosed Abdominal pain Acute Crohn's disease Acute Condition: GOOD Discharge Instructions (ExitCare): Crohn Disease (ED) Additional Instructions: PLEASE RETURN TO THE EMERGENCY DEPARTMENT FOR NEW OR WORSENING SYMPTOMS. RETURN RIGHT AWAY IF YOU CANNOT FOLLOW UP WITH YOUR PRIMARY CARE DOCTOR, CLINIC, OR SPECIALIST IN 1-2 DAYS. Referrals: Brendan Ward MD [Primary Care Provider] - Follow up with primary
[2016-12-14] MEDS ORDERED: Oxycodone/Acetaminophen 10/325 mg Tab PO STA (07:38)
[2016-12-14 07:51] VITALS: BP 118/72; PULSE 70; RESP 18; TEMP 98
== END 2016-12-14 07:51 | disposition home or self-care (01) ==
LOC: ED 06:09
DX: L02.818 Cutaneous abscess of other sites (principal)

== ENCOUNTER 2016-12-15 20:26 | Emergency (ER) | payer MEDICAID ==
[2016-12-15 20:35] VITALS: BP 149/82; PULSE 83; RESP 15; TEMP 98.7; O2SAT 100; BMI 17.8
--- NOTE | 2016-12-15 20:51 | ED PDOC ---
Arrival/HPI - General Chief Complaint: Wound Check Time Seen by Provider: 12/15/16 20:34 Historian: Patient - History of Present Illness Narrative History of Present Illness (Text): 12/15/16 20:50 21 year old male with a past medical history that includes Chron's disease presents to the emergency department with chronic pain from abdominal abscess. Patient was seen here yesterday for the same complaint, requesting pain medication. He reports he has follow up with GI. Denies fevers or chills. Denies any other complaints. GI: Dr. Waite Time/Duration: > week Symptom Onset: Gradual Symptom Course: Unchanged Modifying Factors (Text): None Associated Symptoms (Text): None Past Medical History - Provider Review Nursing Documentation Reviewed: Yes - Infectious Disease Hx of Infectious Diseases: None - Cardiac Hx Cardiac Disorders: No - Pulmonary Hx Respiratory Disorders: No - Neurological Hx Neurological Disorder: No - HEENT Hx HEENT Disorder: No - Renal Hx Renal Disorder: No - Endocrine/Metabolic Hx Endocrine Disorders: No - Hematological/Oncological Hx Blood Disorders: No - Integumentary Hx Dermatological Disorder: No - Musculoskeletal/Rheumatological Hx Falls: No - Gastrointestinal Hx Colostomy: Yes (R back) Hx Crohn's Disease: Yes Other/Comment: GI surgeries - Genitourinary/Gynecological Hx Genitourinary Disorders: No - Psychiatric Hx Psychophysiologic Disorder: No Hx Substance Use: No - Surgical History Other/Comment: Abd surg. for intraabd. abscesses x 7 last surgery 10/[address] [facility] [place] - Anesthesia Hx Anesthesia: Yes Hx Anesthesia Reactions: No Hx Malignant Hyperthermia: No - Suicidal Assessment Feels Threatened In Home Enviroment: No Family/Social History - Physician Review Nursing Documentation Reviewed: Yes Family/Social History: Unknown Family HX Smoking Status: Never Smoked Hx Alcohol Use: No Hx Substance Use: No Allergies/Home Meds Allergies/Adverse Reactions: Allergies FISH Allergy (Verified 12/15/16 20:35) RASH shellfish derived Adverse Reaction (Verified 12/15/16 20:35) ANGIOEDEMA Review of Systems - Physician Review All systems were reviewed & negative as marked: Yes - Review of Systems Constitutional: absent: Fevers Respiratory: absent: SOB Cardiovascular: absent: Chest Pain Gastrointestinal: Abdominal Pain Physical Exam Vital Signs Reviewed: Yes Vital Signs Temp Pulse Resp BP Pulse Ox 12/15/16 20:36 98.7 F 83 15 149/82 100 12/15/16 20:34 98.7 F 83 15 149/82 100 Temperature: Afebrile Blood Pressure: Normal Pulse: Regular Respiratory Rate: Normal Appearance: Positive for: Well-Appearing, Non-Toxic, Uncomfortable Pain Distress: Mild Mental Status: Positive for: Alert and Oriented X 3 - Systems Exam Head: Present: Atraumatic, Normocephalic Pupils: Present: PERRL Extroacular Muscles: Present: EOMI Conjunctiva: Present: Normal Mouth: Present: Moist Mucous Membranes Neck: Present: Normal Range of Motion Respiratory/Chest: Present: Clear to Auscultation, Good Air Exchange. No: Respiratory Distress, Accessory Muscle Use Cardiovascular: Present: Regular Rate and Rhythm, Normal S1, S2. No: Murmurs Abdomen: Present: Normal Bowel Sounds, Other (Multiple abscesses, nontender; No surrounding erythema or fluctuance). No: Tenderness, Distention, Peritoneal Signs Back: Present: Normal Inspection Upper Extremity: Present: Normal Inspection. No: Cyanosis, Edema Lower Extremity: Present: Normal Inspection. No: Edema Neurological: Present: GCS=15, CN II-XII Intact, Speech Normal Skin: Present: Warm, Dry, Normal Color. No: Rashes Psychiatric: Present: Alert, Oriented x 3, Normal Insight, Normal Concentration Medical Decision Making ED Course and Treatment: Impression: 21 year old male with a past medical history that includes Chron's disease presents to the emergency department with chronic pain from abdominal abscess. Differential Diagnosis include but are not limited to: Plan: -- Labs -- Reassess and disposition Prior Visits: Notes and results from previous visits were reviewed. Patient last seen yesterday 12/14/16 for abdominal pain and discharged home. Progress Notes: 12/15/16 21:25 Patient with noted multiple visits for similar complaints, requesting IV Dilaudid. Noted that patient has several narcotic prescriptions outpatient. This is a chronic pain issue. Patient requesting pain meds. advised we will try non narcotic pain meds first. patient requesting to go home immediately, wishes to sign out AMA. 12/15/16 21:54 - Scribe Statement The provider has reviewed the documentation as recorded by the James Villanueva Provider Scribe Attestation: All medical record entries made by the Aminahibsherri were at my direction and personally dictated by me. I have reviewed the chart and agree that the record accurately reflects my personal performance of the history, physical exam, medical decision making, and the department course for this patient. I have also personally directed, reviewed, and agree with the discharge instructions and disposition. Disposition/Present on Arrival - Present on Arrival Any Indicators Present on Arrival: No History of DVT/PE: No History of Uncontrolled Diabetes: No Urinary Catheter: No History of Decub. Ulcer: No History Surgical Site Infection Following: None - Disposition Have Diagnosis and Disposition been Completed?: Yes Diagnosis: Abdominal pain Disposition: AGAINST MEDICAL ADVICE Disposition Time: 21:17 Patient Problems: Current Active Problems Problem Status Diagnosed Crohn's disease Acute Condition: UNKNOWN Discharge Instructions (ExitCare): Acute Abdominal Pain (ED) Additional Instructions: please see yoour specialist or gi. return to er with worsening symptoms o rconcerns. Referrals: Brendan Ward MD [Primary Care Provider] - Follow up with primary [facility] [Outside] - Follow up with primary [facility] [Outside] - Follow up with primary Sunny Griffin MD [Staff Provider] - Follow up with primary
== END 2016-12-15 21:21 | disposition left against medical advice (07) ==
LOC: ED 20:26
DX: R10.9 Unspecified abdominal pain (principal)

== ENCOUNTER 2016-12-22 17:57 | Emergency (ER) | payer MEDICAID ==
[2016-12-22 17:58] VITALS: BMI 17.8
[2016-12-22 18:08] VITALS: TEMP 98.9
--- NOTE | 2016-12-22 18:45 | ED PDOC ---
Arrival/HPI - General Chief Complaint: Abdominal Pain Time Seen by Provider: 12/22/16 18:00 Historian: Patient - History of Present Illness Narrative History of Present Illness (Text): 12/22/16 18:35 A 21 year old male, whose past medical history includes Crohn's disease and anemia, presents to the emergency department complaining of not feeling well. Patient reports nausea and non bloody bon bilious vomiting today. He states he has a unwitnessed syncopal episode prior to arrival. patient notes he woke up on his own and then decided to come to the emergency department for evaluation. Patient also complains of a slight cough and a subjective fever but he denies any head trauma, dizziness, headache, chest pain, or any other complaints at this time. Patient is currently demanding Dilaudid. u[luis review of prior visits pt consistently demands dilaudid. pt states he has pain managemnt appt on monday. PMD: None 12/22/16 22:30 Time/Duration: Prior to Arrival Symptom Onset: Sudden Symptom Course: Other Quality: Other Activities at Onset: Rest Context: Home Past Medical History - Provider Review Nursing Documentation Reviewed: Yes - Infectious Disease Hx of Infectious Diseases: None - Reproductive Currently : No - Cardiac Hx Cardiac Disorders: No - Pulmonary Hx Respiratory Disorders: No - Neurological Hx Neurological Disorder: No Hx Transient Ischemic Attacks (TIA): No - HEENT Hx HEENT Disorder: No - Renal Hx Renal Disorder: No - Endocrine/Metabolic Hx Endocrine Disorders: No - Hematological/Oncological Hx Anemia: Yes (Fe Def Anemia) - Integumentary Hx Dermatological Disorder: No - Musculoskeletal/Rheumatological Hx Musculoskeletal Disorders: No Hx Falls: No - Gastrointestinal Hx Gastrointestinal Disorders: Yes Hx Crohn's Disease: Yes - Genitourinary/Gynecological Hx Genitourinary Disorders: No - Psychiatric Hx Psychophysiologic Disorder: No Hx Substance Use: No - Surgical History Other/Comment: Abd surg. for intraabd. abscesses x 7 last surgery 10/2016 at [facility] [place] - Anesthesia Hx Anesthesia: Yes Hx Anesthesia Reactions: No Hx Malignant Hyperthermia: No - Suicidal Assessment Feels Threatened In Home Enviroment: No Family/Social History - Physician Review Nursing Documentation Reviewed: Yes Family/Social History: Unknown Family HX Smoking Status: Never Smoked Hx Alcohol Use: No Hx Substance Use: No Allergies/Home Meds Allergies/Adverse Reactions: Allergies FISH Allergy (Verified 12/16/16 09:40) RASH shellfish derived Adverse Reaction (Verified 12/16/16 09:40) ANGIOEDEMA Home Medications: Home Meds Medication Instructions Recorded Confirmed oxyCODONE [oxyCODONE Immediate 15 mg PO Q8H 12/16/16 12/16/16 Release Tab] Review of Systems - Physician Review All systems were reviewed & negative as marked: Yes - Review of Systems Constitutional: Fevers (subjective). absent: Other (head injury ) Respiratory: Cough Cardiovascular: Syncope. absent: Chest Pain Neurological: absent: Headache, Dizziness Physical Exam Vital Signs Reviewed: Yes Vital Signs Temp Pulse Resp BP Pulse Ox 12/22/16 21:55 75 16 137/74 98 12/22/16 20:05 77 17 129/92 H 99 12/22/16 18:15 98.9 F 83 18 111/76 98 12/22/16 18:05 98.9 F 83 17 111/76 100 Temperature: Afebrile Blood Pressure: Normal Pulse: Regular Respiratory Rate: Normal Appearance: Positive for: Well-Appearing, Non-Toxic, Comfortable Pain Distress: None Mental Status: Positive for: Alert and Oriented X 3 Finger Stick Blood Glucose: 68 - Systems Exam Head: Present: Atraumatic, Normocephalic Pupils: Present: PERRL Extroacular Muscles: Present: EOMI Conjunctiva: Present: Normal Mouth: Present: Moist Mucous Membranes Neck: Present: Normal Range of Motion Respiratory/Chest: Present: Clear to Auscultation, Good Air Exchange. No: Respiratory Distress, Accessory Muscle Use Cardiovascular: Present: Regular Rate and Rhythm, Normal S1, S2. 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 No : Tenderness, Distention, Peritoneal Signs Back: Present: Normal Inspection Upper Extremity: Present: Normal Inspection. No: Cyanosis, Edema Lower Extremity: Present: Normal Inspection. No: Edema Neurological: Present: GCS=15, CN II-XII Intact, Speech Normal Skin: Present: Warm, Dry, Normal Color. No: Rashes Psychiatric: Present: Alert, Oriented x 3, Normal Insight, Normal Concentration Medical Decision Making ED Course and Treatment: 12/22/16 18:35 Impression: A 21 year old male after a unwitnessed syncopal episode. Patient demanding Dilaudid. pt not coughing or vomiting here and appears to be completely comfortable. he is texting on his phone etc. but demanding dilaudid Differential Diagnosis include but are not limited to: cough rule out pneumonia Plan: -- Chest X-ray -- Labs -- Urinalysis -- Dilaudid, Zofran and IV Fluids -- Reassess and disposition 1900 labs reviewed. pt anemic as baseline. no other major abnormalities. pt appears comfortabel. Prior Visits: Notes and results from previous visits were reviewed. The patient had 3 fistulas that are slowly closing. Patient had a CT on 11/21 which showed a right sided abscess. Patient was worked up with surgery, infection and GI. Patient then had a repeat CT on 11/26, which showed no changes. Patient was later came to the emergency department on 12/15 demanding narcotics but once patient was told he will not get any he signed out AMA. He then came back on 12/16. He was admitted to the hospital till 12/19. During his stay he had a full GI and surgical work up. Surgery performed no intervention at this time and told patient to follow up with a specialist in [facility]. GI felt no additional therapy was needed at that time. Progress Notes: 12/22/16 21:41 EXAM: XR Chest, 2 Views FINDINGS: Lungs: Unremarkable. No consolidation. Pleural space: Unremarkable. No pneumothorax. Heart: Unremarkable. No cardiomegaly. Mediastinum: Unremarkable. Bones/joints: Unremarkable. IMPRESSION: Normal chest x-rays 2200 pt continually exhibiting drug seeking behavior. while walking by the room and evaluting pt at bedside pt completely comfortable, pt still demnading dilaudid. pt starting to become threatening when dilaudid declined. all labs and imaging esults reviewed with patient and pt instructed to follow up as oupt. dx chronic abdomina pain drug seeking behavior 12/22/16 22:31 - Lab Interpretations Lab Results: 12/22/16 18:35 12/22/16 20:10 Lab Results 12/22/16 20:20: Urine Color Yellow, Urine Appearance Clear, Urine pH 7.0, Ur Specific [place] 1.020, Urine Protein 30 H, Urine Glucose (UA) Negative, Urine Ketones Negative, Urine Blood Negative, Urine Nitrate Negative, Urine Bilirubin Negative, Urine Urobilinogen 0.2, Ur Leukocyte Esterase Negative, Urine RBC Negative, Urine WBC 0 - 2, Ur Epithelial Cells 0 - 2, Urine Bacteria Rare 12/22/16 20:10: Sodium 143, Potassium 3.7, Chloride 101, Carbon Dioxide 32, Anion Gap 14, BUN 6 L, Creatinine 0.7, Est GFR ( Amer) > 60, Est GFR (Non -Af Amer) > 60, Random Glucose 88, Calcium 8.5, Total Bilirubin 0.4, AST 29, ALT 29, Alkaline Phosphatase 94, Total Protein 8.3, Albumin 3.7, Globulin 4.7, Albumin/Globulin Ratio 0.8 L 12/22/16 18:35: WBC 4.6 D, RBC 4.29, Hgb 9.6 L, Hct 31.7 L, MCV 73.9 L, MCH 22.4 L, MCHC 30.3 L, RDW 23.1 H, Plt Count 700 H, MPV 9.3, Gran % 56.8, Lymph % (Auto) 31.0, [place]cl[place] % (Auto) 10.0 H, Eos % (Auto) 2.0, Baso % (Auto) 0.2, Gran # 2.62, Lymph # 1.4, Mcclain # 0.5, Eos # 0.1, Baso # 0.01 I have reviewed the lab results: Yes - RAD Interpretation Radiology Orders: 12/22/16 18:57 CHEST TWO VIEWS (PA/LAT) [RAD] Stat - Medication Orders Current Medication Orders: Discontinued Medications Hydromorphone HCl (Dilaudid) 1 mg IVP STAT STA Stop: 12/22/16 19:06 Last Admin: 12/22/16 20:05 Dose: 1 MG IVP Administration Document 12/22/16 20:05 RD (Rec: 12/22/16 20:05 RD [id number]) Charges for Administration # of IVP Administrations 1 Sodium Chloride (Sodium Chloride 0.9%) 500 mls @ 1,000 mls/hr IV .Q30M STA Stop: 12/22/16 19:22 Last Admin: 12/22/16 18:59 Dose: 1,000 MLS/HR eMAR Start Stop Document 12/22/16 18:59 SF (Rec: 12/22/16 19:00 SF [id number]) Intravenous Solution Start Date 12/22/16 Start Time 18:59 End Date 12/22/16 End time 19:29 Total Infusion Time 30 Ondansetron HCl (Zofran Inj) 4 mg IVP STAT STA Stop: 12/22/16 18:54 Last Admin: 12/22/16 19:05 Dose: 4 MG IVP Administration Document 12/22/16 19:05 SF (Rec: 12/22/16 19:05 SF [id number]) Charges for Administration # of IVP Administrations 1 Oxycodone/Acetaminophen (Percocet 5/325 Mg Tab) 1 tab PO STAT STA Stop: 12/22/16 21:54 Last Admin: 12/22/16 22:00 Dose: 1 TAB - Scribe Statement The provider has reviewed the documentation as recorded by the Scribe Carmelita Arana Provider Scribe Attestation: All medical record entries made by the Scribe were at my direction and personally dictated by me. I have reviewed the chart and agree that the record accurately reflects my personal performance of the history, physical exam, medical decision making, and the department course for this patient. I have also personally directed, reviewed, and agree with the discharge instructions and disposition. Disposition/Present on Arrival - Present on Arrival Any Indicators Present on Arrival: No History of DVT/PE: No History of Uncontrolled Diabetes: No Urinary Catheter: No History of Decub. Ulcer: No History Surgical Site Infection Following: None - Disposition Have Diagnosis and Disposition been Completed?: Yes Diagnosis: Chronic abdominal pain Disposition: HOME/ ROUTINE Disposition Time: 21:00 Patient Plan: Discharge Condition: GOOD Discharge Instructions (ExitCare): Abdominal Pain (ED) Additional Instructions: follow up with your primary doctor in 1-2 days. return to the ED wtih any worsening or concerning symptoms. Referrals: PCP,NO [Primary Care Provider] - Follow up with primary
[2016-12-22] MEDS ORDERED: Sodium Chloride 0.9% 500 ML IV STA (18:53)
[2016-12-22] MEDS ORDERED: HYDROmorphone 1 mg/ml ISec IVP STA (19:05)
[2016-12-22 19:09] LABS: ADD MANUAL DIFF? NO
[2016-12-22 19:25] LABS: BASO # 0.01 K/mm3 (0.0-2.0); BASO % 0.2 % (0.0-3.0); EOS # 0.1 (0.0-0.7); GRAN # 2.62 (1.4-6.5); GRAN % 56.8 % (50.0-68.0); HEMATOCRIT 31.7 % (42.0-52.0); LYMPH # 1.4 (1.2-3.4); MEAN CELL VOLUME 73.9 fL (80.0-105.0); MEAN CORPUSCULAR HEMOGLOBIN 22.4 pg (25.0-35.0); MEAN CORPUSCULAR HGB CONC 30.3 g/dl (31.0-37.0); MEAN PLATELET VOLUME 9.3 fl (7.0-11.0); MONO # 0.5 (0.1-0.6); PLATELET COUNT 700 10^3/uL (120.0-450.0); RED CELL DISTRIBUTION WIDTH 23.1 % (11.5-14.5); WHITE BLOOD COUNT 4.6 10^3/ul (4.5-11.0)
[2016-12-22 20:32] LABS: ALB/GLOB RATIO 0.8 (1.1-1.8); ALKALINE PHOSPHATASE 94 U/L (38-133); ALT/SGPT 29 U/L (7-56); AST/SGOT 29 U/L (15-59); BILIRUBIN,TOTAL 0.4 mg/dL (0.2-1.3); BLOOD UREA NITROGEN 6 mg/dL (7-21); CALCIUM 8.5 mg/dL (8.4-10.5); CARBON DIOXIDE 32 mmol/L (21-33); CHLORIDE 101 mmol/L (98-107); GFR AFRICAN-AMERICAN > 60; GLUCOSE,RANDOM 88 mg/dL (70-110); POTASSIUM 3.7 mmol/L (3.6-5.0); SODIUM 143 mmol/L (132-148); TOTAL PROTEIN 8.3 g/dL (5.8-8.3)
[2016-12-22 20:43] LABS: URINE BILIRUBIN NEGATIVE (NEGATIVE); URINE BLOOD NEGATIVE (NEGATIVE); URINE GLUCOSE (UA) NEGATIVE (NEGATIVE); URINE KETONE NEGATIVE (NEGATIVE); URINE LEUKOCYTE ESTERASE NEGATIVE Leu/uL (NEGATIVE); URINE PROTEIN 30 mg/dL (<30 mg/dL); URINE UROBILINOGEN 0.2 E.U./dL (<1 E.U./dL)
[2016-12-22 20:56] LABS: URINE APPEARANCE CLEAR (CLEAR); URINE COLOR YELLOW (YELLOW)
[2016-12-22] MEDS ORDERED: Oxycodone/Acetaminophen 5/325 mg Tab PO STA (21:53)
[2016-12-22 21:56] VITALS: BP 137/74; PULSE 75; RESP 16; O2SAT 98
[2016-12-22 22:15] LABS: URINE BACTERIA RARE (NEG); URINE EPITHELIAL CELLS 0 - 2 /hpf (0-5); URINE RBC NEGATIVE /hpf (0-2); URINE WBC 0 - 2 /hpf (0-6)
--- NOTE | 2016-12-23 07:20 | RAD ---
HISTORY: cough COMPARISON: Chest x-ray performed 12/11/16 TECHNIQUE: Chest PA and lateral FINDINGS: LUNGS: Small retrocardiac opacity may reflect developing/resolving pneumonia. Please note that chest x-ray has limited sensitivity for the detection of pulmonary masses. PLEURA: No significant pleural effusion identified. No definite pneumothorax . CARDIOVASCULAR: The cardiomediastinal silhouette appears within normal limits of size. OSSEOUS STRUCTURES: No acute osseous abnormality identified. VISUALIZED UPPER ABDOMEN: Unremarkable. OTHER FINDINGS: None. IMPRESSION: Small retrocardiac opacity may reflect developing/resolving pneumonia. Study has been marked for PA review.
== END 2016-12-22 22:00 | disposition home or self-care (01) ==
LOC: ED 17:57
DX: R10.9 Unspecified abdominal pain (principal); J18.9 Pneumonia, unspecified organism
CPT/HCPCS: 71020; 80053; 81001; 85025; 87040; 87086; 87181; 96374; 96375; 99285; J1170; J2405; J7040

== ENCOUNTER 2016-12-25 12:12 | Emergency (ER) | payer MEDICAID ==
[2016-12-25 12:12] VITALS: BMI 17.8
[2016-12-25 12:26] VITALS: BP 121/81; PULSE 82; RESP 16; TEMP 98; O2SAT 100
--- NOTE | 2016-12-25 12:29 | ED PDOC ---
Arrival/HPI - General Historian: Patient - General Chief Complaint: Cough, Cold, Congestion Time Seen by Provider: 12/25/16 12:27 - History of Present Illness Narrative History of Present Illness (Text): 12/25/16 12:28 21 y/o male, pmh including crohn's disease, nkda, c/o here for the follow up about the chest x-ray. Pt. was seen here about 3 days ago, chest x-ray show there is pneumonia which attempted to call but never call back which the certified letter sent out base on the chart, here today because he is still coughing, no chest pain or shortness of breath, no fever or chills, no recent traveling, no history of sickle cells, no numbness or tingling, no other medical or psychological complaints. (Collin Layton) Past Medical History - Provider Review Nursing Documentation Reviewed: Yes - Infectious Disease Hx of Infectious Diseases: None - Reproductive Currently : No - Cardiac Hx Cardiac Disorders: No - Pulmonary Hx Respiratory Disorders: No - Neurological Hx Neurological Disorder: No Hx Transient Ischemic Attacks (TIA): No - HEENT Hx HEENT Disorder: No - Renal Hx Renal Disorder: No - Endocrine/Metabolic Hx Endocrine Disorders: No - Hematological/Oncological Hx Blood Disorders: Yes Hx Anemia: Yes (Fe Def Anemia) - Integumentary Hx Dermatological Disorder: No - Musculoskeletal/Rheumatological Hx Musculoskeletal Disorders: No Hx Falls: No - Gastrointestinal Hx Gastrointestinal Disorders: Yes Hx Crohn's Disease: Yes - Genitourinary/Gynecological Hx Genitourinary Disorders: No - Psychiatric Hx Psychophysiologic Disorder: No Hx Substance Use: No - Surgical History Other/Comment: Abd surg. for intraabd. abscesses x 7 last surgery 10/2016 at [facility] [place] - Anesthesia Hx Anesthesia: Yes Hx Anesthesia Reactions: No Hx Malignant Hyperthermia: No - Suicidal Assessment Feels Threatened In Home Enviroment: No Family/Social History - Physician Review Nursing Documentation Reviewed: Yes Family/Social History: Unknown Family HX Smoking Status: Never Smoked Hx Alcohol Use: No Hx Substance Use: No Allergies/Home Meds Allergies/Adverse Reactions: Allergies FISH Allergy (Verified 12/25/16 12:26) RASH shellfish derived Adverse Reaction (Verified 12/25/16 12:26) ANGIOEDEMA Home Medications: Home Meds Medication Instructions Recorded Confirmed oxyCODONE [oxyCODONE Immediate 15 mg PO Q8H 12/16/16 12/25/16 Release Tab] Review of Systems - Review of Systems Constitutional: absent: Fatigue, Fevers Eyes: absent: Vision Changes ENT: absent: Hearing Changes Respiratory: Cough, Sputum. absent: SOB, Wheezing Cardiovascular: absent: Chest Pain Gastrointestinal: absent: Abdominal Pain, Nausea, Vomiting Musculoskeletal: absent: Arthralgias, Back Pain, Neck Pain, Joint Swelling, Myalgias Skin: absent: Rash, Pruritis, Skin Lesions Neurological: absent: Headache, Dizziness, Focal Weakness Endocrine: absent: Diaphoresis Psychiatric: absent: Anxiety, Depression, Suicidal Ideation Physical Exam Vital Signs Reviewed: Yes Temperature: Afebrile Blood Pressure: Normal Pulse: Regular Respiratory Rate: Normal Appearance: Positive for: Well-Appearing, Non-Toxic, Comfortable Pain Distress: Mild Mental Status: Positive for: Alert and Oriented X 3 - Systems Exam Head: Present: Atraumatic, Normocephalic Pupils: Present: PERRL Extroacular Muscles: Present: EOMI Conjunctiva: Present: Normal Ears: Present: NORMAL TM, Normal Canal. No: Erythema Mouth: Present: Moist Mucous Membranes Neck: Present: Normal Range of Motion Respiratory/Chest: Present: Clear to Auscultation, Good Air Exchange, Rhonchi ( lt. lower lobe). No: Respiratory Distress, Accessory Muscle Use, Wheezes, Decreased Breath Sounds, Rales, Retracting, Tachypneic, Tender to Palpation Cardiovascular: Present: Regular Rate and Rhythm, Normal S1, S2. No: Murmurs Abdomen: Present: Normal Bowel Sounds. No: Tenderness, Distention, Peritoneal Signs, Guarding, McBurney's Point Tender Back: Present: Normal Inspection Upper Extremity: Present: Normal Inspection. No: Cyanosis, Edema Lower Extremity: Present: Normal Inspection. No: Edema Neurological: Present: GCS=15, Speech Normal, Motor Func Grossly Intact, Gait Normal, Memory Normal Skin: Present: Warm, Dry, Normal Color. No: Rashes Psychiatric: Present: Alert, Oriented x 3, Normal Insight, Normal Concentration Vital Signs Temp Pulse Resp BP Pulse Ox 12/25/16 12:22 98.0 F 82 16 121/81 100 Medical Decision Making ED Course and Treatment: 12/25/16 12:39 -Pt. stated that he has chronic crohn's disease which he is chronically on the percocet, stated that he forgot to take it today, will give percocet as the patient has family member to drive him home. -I discussed about the use of levaquin with the patient including possible achilles tendon rupture which the patient stated that he prefer the levaquin for his pneumonia and understands the risk of achilles tendon rupture. -Discharge home with levaquin, promethazine dm, continue tylenol or motrin at home as needed, follow up with your own pmd within 2 days, repeat xray after complete the antibiotic, return to the ER for any new or worsening signs or symptoms. (Collin Layton) I was available for consultation during PA evaluation. The chart was reviewed by me, and I agree with disposition. The documented history was done by the physician solar design engineer. The documented physical exam was done by the physician solar design engineer. The documented procedures were done by the physician solar design engineer. ( Carlos Elliott) - Medication Orders Current Medication Orders: Discontinued Medications Levofloxacin (Levaquin) 750 mg PO STAT STA Stop: 12/25/16 12:37 Last Admin: 12/25/16 12:51 Dose: 750 MG Oxycodone/Acetaminophen (Percocet 5/325 Mg Tab) 1 tab PO STAT STA Stop: 12/25/16 12:37 Last Admin: 12/25/16 12:51 Dose: 1 TAB - PA / MOLDED GRID AND PARTS INSPECTOR / Resident Statement MD/DO has reviewed & agrees with the documentation as recorded. Disposition/Present on Arrival - Present on Arrival Any Indicators Present on Arrival: Yes History of DVT/PE: No History of Uncontrolled Diabetes: No Urinary Catheter: No History of Decub. Ulcer: No History Surgical Site Infection Following: None - Disposition Have Diagnosis and Disposition been Completed?: Yes Disposition Time: 12:41 Patient Plan: Discharge - Disposition Diagnosis: Pneumonia Disposition: HOME/ ROUTINE Condition: GOOD Additional Instructions: Discharge home with levaquin, promethazine dm, continue tylenol or motrin at home as needed, follow up with your own pmd within 2 days, repeat xray after complete the antibiotic, return to the ER for any new or worsening signs or symptoms. Prescriptions: Levofloxacin [Levaquin] 750 mg PO DAILY #4 tablet Promethazine DM [Phenergan DM Oral Syrup] 5 ml PO QID PRN #150 ml PRN Reason: Other Referrals: [facility] at [facility] [place] [Outside] - Follow up with primary Forms: WORK NOTE
[2016-12-25] MEDS ORDERED: Oxycodone/Acetaminophen 5/325 mg Tab PO STA (12:36)
[2016-12-25] MEDS ORDERED: levoFLOXacin 750 MG TAB PO STA (12:36)
== END 2016-12-25 13:06 | disposition home or self-care (01) ==
LOC: ED 12:12
DX: J18.9 Pneumonia, unspecified organism (principal)

== ENCOUNTER 2016-12-30 20:02 | Inpatient (IN) | payer MEDICAID ==
[2016-12-30 20:02] VITALS: BMI 17.8
[2016-12-30] MEDS ORDERED: Sodium Chloride 0.9% 1,000 ML IV STA (21:00)
[2016-12-30 22:06] LABS: ADD MANUAL DIFF? NO
[2016-12-30 22:20] LABS: BASO # 0.02 K/mm3 (0.0-2.0); BASO % 0.1 % (0.0-3.0); EOS # 0.1 (0.0-0.7); EOS % 0.3 % (1.5-5.0); GRAN # 14.92 (1.4-6.5); GRAN % 80.8 % (50.0-68.0); HEMATOCRIT 28.2 % (42.0-52.0); LYMPH # 1.9 (1.2-3.4); LYMPH % 10.2 % (22.0-35.0); MEAN CORPUSCULAR HEMOGLOBIN 22.8 pg (25.0-35.0); MEAN CORPUSCULAR HGB CONC 30.9 g/dl (31.0-37.0); MEAN PLATELET VOLUME 8.7 fl (7.0-11.0); MONO # 1.6 (0.1-0.6); MONO % 8.6 % (1.0-6.0); PLATELET COUNT 580 10^3/uL (120.0-450.0); RED CELL DISTRIBUTION WIDTH 23.1 % (11.5-14.5); WHITE BLOOD COUNT 18.5 10^3/ul (4.5-11.0)
[2016-12-30 22:26] LABS: INR 1.11 (0.93-1.08); PARTIAL THROMBOPLASTIN TIME 30.6 Seconds (23.7-30.8)
[2016-12-30] MEDS ORDERED: HYDROmorphone 1 mg/ml ISec IVP STA (22:34)
[2016-12-30 22:36] LABS: ALB/GLOB RATIO 0.9 (1.1-1.8); ALKALINE PHOSPHATASE 82 U/L (38-133); ALT/SGPT 24 U/L (7-56); AST/SGOT 56 U/L (15-59); BILIRUBIN,TOTAL 0.6 mg/dL (0.2-1.3); BLOOD UREA NITROGEN 6 mg/dL (7-21); CALCIUM 8.5 mg/dL (8.4-10.5); CARBON DIOXIDE 30 mmol/L (21-33); CHLORIDE 98 mmol/L (98-107); GFR AFRICAN-AMERICAN > 60; GLUCOSE,RANDOM 82 mg/dL (70-110); LIPASE 24 U/L (23-300); POTASSIUM 3.8 mmol/L (3.6-5.0); SODIUM 138 mmol/L (132-148); TOTAL PROTEIN 7.8 g/dL (5.8-8.3)
--- NOTE | 2016-12-30 23:41 | CT ---
EXAM: CT Abdomen and Pelvis Without Intravenous Contrast CLINICAL HISTORY: 21 years old, male; Pain; Abdominal pain; Acute; Prior surgery; Surgery date: 6+ months; Surgery type: Colon resection. Crohns; Patient HX: Right side abd pain. Abcess. Open wound right side of back. Draining pus TECHNIQUE: Axial computed tomography images of the abdomen and pelvis without intravenous contrast. This CT exam was performed using one or more of the following dose reduction techniques: automated exposure control, adjustment of the mA and/or kV according to patient size, and/or use of iterative reconstruction technique. Coronal and sagittal reformatted images were created and reviewed. EXAM DATE/TIME: Exam ordered 12/30/2016 10:34 PM COMPARISON: CT - ABD PELVIS PO IV CONTRAST 11/27/2016 2:14:38 AM FINDINGS: Lower thorax: The lung bases show no definite airspace disease, there is a 5 mm nodule in the right lower lobe on the uppermost image. Air in the esophagus in keeping with reflux. Small hiatus hernia. ABDOMEN: Liver: Unremarkable. Gallbladder and bile ducts: The gallbladder is collapsed. No calcified stones. No ductal dilation. Pancreas: Limited evaluation. Spleen: Unremarkable. No splenomegaly. Adrenals: There is moderate thickening of the medial limb of the left adrenal, see series 2 image 34. Kidneys and ureters: There is no definite hydronephrosis. Stomach and bowel: There is comparison to previous CT dated November 27, 2016, at that time there was note of multiple abscesses, or colonic wall thickening and bladder wall thickening, noted a history of Crohn's disease and abdominal procedures. The present study is greatly limited by the absence of intravenous contrast and the paucity of abdominal fat, if the patient can tolerate contrast, a contrast-enhanced examination is recommended. Alternatively magnetic resonance imaging may be useful. There is also significant limitation related to minimal oral contrast opacification, oral contrast was apparently administered but has not passed beyond the duodenum. There is again note of a bowel anastomosis. Patient is reported to be status post previous colonic resection. There is formed fecal content in the colon. There is no finding of abdominal wall hernia containing bowel. No obstruction. Appendix: Cannot evaluate the appendix, please correlate whether it may be surgically absent. PELVIS: Bladder: Compared to the previous study the bladder appears less thickwalled. No stones. Reproductive: Prostate approximately 4.3 cm. ABDOMEN and PELVIS: Intraperitoneal space: There is no free intraperitoneal air. Noting the severe limitations of the present study, it is possible to compare some of the previously known other abscesses. There is redemonstration of abnormal fluid and dots of air associated with the right psoas series 2 image 95, favor that this represents an interval increase in air in the previously described abscesses associated with the right psoas and right iliac muscles. Again noted that free fluid in the right paracolic gutter is inseparable from the apparent abscess/phlegmon associated with the right psoas and right lateral abdominal wall. Bones/joints: There is no definitive radiographic evidence of osteomyelitis, noting that CT is of limited sensitivity for osteomyelitis. No acute fracture. No dislocation. Soft tissues: History is provided of open wound at the right aspect of the back. this area is visualized series 2 image 105 at approximately the level of the L4-L5 disc space on the right. There is tissue attenuation tracking from the right posterior paraspinal muscles through the subcutaneous fat. In the absence of iv contrast, cannot determine whether this represents a drainable collection or a phlegmon. However, more caudally, series 2 image 115, it is favored that there is some fluid tracking both laterally and medially within the subcutaneous fat just superficial to the paraspinal muscles and right gluteal. Please note that this was in the area described previously, at which time series 2 image 101 on the study of November 27 a distinct drainable collection in this area was not seen. It is favored that there is some interval increase in associated fluid and soft tissue findings, this study does not provide an adequate evaluation regarding whether some of this may be drainable. Vasculature: Unremarkable. No abdominal aortic aneurysm. Lymph nodes: Very limited evaluation Other findings: IMPRESSION: Very limited examination noting absence of intravenous contrast and minimal oral contrast present. Interval increase in air associated with the right psoas and right flank, dots of air now extend as high as the retrocrural region at L1 series 2 image 61, appearing in continuity with the findings suggesting abscess and/or phlegmon in the right psoas, right iliac , inseparable from fluid tracking along the right paracolic gutter and also inseparable from the abnormality which brings the patient to the present CT in the right posterior soft tissues. In the area of the previously described posterior right subcutaneous tissues where there was fluid seen tracking to the skin surface previously, there is an interval increase in subcutaneous fat abnormality. Please note that this finding may be in continuity with the probable psoas abscess. Cannot determine on this noncontrast study whether this is phlegmon this order whether there is a drainable collection. If clarification of details of the soft tissues will alter management, either a contrast-enhanced CT or an MRI may be useful.
--- NOTE | 2016-12-31 00:29 | ED PDOC ---
Arrival/HPI - General Historian: Patient <Henry Benoit A - Last Filed: 12/31/16 00:46> <Kenneth Alvarez - Last Filed: 12/31/16 00:48> - General Chief Complaint: Abdominal Pain Time Seen by Provider: 12/30/16 20:02 - History of Present Illness Narrative History of Present Illness (Text): 12/31/16 00:22 21yo male with PMhx of Chron's disease, anemia, present with complaint of worsening right sided abdominal pain and discharge from the wound x one week. Patient states he was seen last week at [facility] and given antibiotics for Pneumonia. states he continues to cough and it makes his right sided abdominal pain worse. Feels that the area is swollen and noticing increasing discharge from his abdominal surgical wounds. He denies fever, chills, vomiting, diarrhea , constipation, chest pain. He had surgical colon resection last year March. (Henry Benoit A) Past Medical History - Provider Review Nursing Documentation Reviewed: Yes - Infectious Disease Hx of Infectious Diseases: None - Reproductive Currently : No - Cardiac Hx Cardiac Disorders: No - Pulmonary Hx Respiratory Disorders: No - Neurological Hx Transient Ischemic Attacks (TIA): No - HEENT Hx HEENT Disorder: No - Renal Hx Renal Disorder: No - Endocrine/Metabolic Hx Endocrine Disorders: No - Hematological/Oncological Hx Anemia: Yes (Fe Def Anemia) - Integumentary Hx Dermatological Disorder: No - Musculoskeletal/Rheumatological Hx Musculoskeletal Disorders: No Hx Falls: No - Gastrointestinal Hx Crohn's Disease: Yes (multiple surgeries fistulas per patient) - Genitourinary/Gynecological Hx Genitourinary Disorders: No - Psychiatric Hx Psychophysiologic Disorder: No Hx Substance Use: No - Surgical History Other/Comment: Abd surg. for intraabd. abscesses x 7 last surgery 10/2016 at [facility] [place] - Anesthesia Hx Anesthesia: Yes Hx Anesthesia Reactions: No Hx Malignant Hyperthermia: No - Suicidal Assessment Feels Threatened In Home Enviroment: No <Henry Benoit A - Last Filed: 12/31/16 00:46> Family/Social History - Physician Review Nursing Documentation Reviewed: Yes Family/Social History: Unknown Family HX Smoking Status: Never Smoked Hx Alcohol Use: No Hx Substance Use: No <Henry Benoit A - Last Filed: 12/31/16 00:46> Allergies/Home Meds <Henry Benoit A - Last Filed: 12/31/16 00:46> <Kenneth Alvarez - Last Filed: 12/31/16 00:48> Allergies/Adverse Reactions: Allergies diphenhydramine [From Benadryl] Allergy (Verified 12/30/16 20:20) RASH FISH Allergy (Verified 12/30/16 20:19) RASH ketorolac [From Toradol] Allergy (Verified 12/30/16 20:19) RASH shellfish derived Adverse Reaction (Verified 12/30/16 20:19) ANGIOEDEMA Home Medications: Home Meds Medication Instructions Recorded Confirmed Cephalexin [Keflex] 500 mg PO BID 12/30/16 12/30/16 Review of Systems - Physician Review All systems were reviewed & negative as marked: Yes - Review of Systems Constitutional: Normal Eyes: Normal ENT: Normal Respiratory: Normal Cardiovascular: Normal Gastrointestinal: Abdominal Pain. absent: Constipation, Diarrhea, Nausea, Vomiting, Hematochezia, Hematemesis Genitourinary Male: Normal Musculoskeletal: Normal Skin: Normal Neurological: Normal Endocrine: Normal Hemo/Lymphatic: Normal Psychiatric: Normal <Henry Benoit A - Last Filed: 12/31/16 00:46> Physical Exam Vital Signs Reviewed: Yes Temperature: Febrile Blood Pressure: Normal Pulse: Tachycardic Respiratory Rate: Normal Appearance: Positive for: Well-Appearing, Non-Toxic, Comfortable Pain Distress: None Mental Status: Positive for: Alert and Oriented X 3 - Systems Exam Head: Present: Atraumatic, Normocephalic Pupils: Present: PERRL Extroacular Muscles: Present: EOMI Conjunctiva: Present: Normal Mouth: Present: Moist Mucous Membranes Neck: Present: Normal Range of Motion Respiratory/Chest: Present: Clear to Auscultation, Good Air Exchange. No: Respiratory Distress, Accessory Muscle Use, Wheezes, Decreased Breath Sounds, Rales, Retracting, Rhonchi Cardiovascular: Present: Regular Rate and Rhythm, Normal S1, S2. No: Murmurs Abdomen: Present: Tenderness (Diffuse tenderness), Normal Bowel Sounds, Guarding , Scars (Healed surgical scars noted), Other (Open wound with purulent discharge noted drom the abdominal surgical open wound). No: Distention, Peritoneal Signs, Rebound, McBurney's Point Tender, Rovsing's Sign Present Back: Present: Normal Inspection Upper Extremity: Present: Normal Inspection. No: Cyanosis, Edema Lower Extremity: Present: Normal Inspection. No: Edema Neurological: Present: GCS=15, CN II-XII Intact, Speech Normal Skin: Present: Warm, Dry, Normal Color. No: Rashes Psychiatric: Present: Alert, Oriented x 3, Normal Insight, Normal Concentration <Henry merchant A - Last Filed: 12/31/16 00:46> Medical Decision Making <CyHenry Cresencio - Last Filed: 12/31/16 00:46> <Kenneth Alvarez - Last Filed: 12/31/16 00:48> ED Course and Treatment: 12/31/16 00:40 PT in ED for stated history. He had low grade temp on presentation. His pain was controlled in ED with medication. On re valuation he states his pain started coming back. He had leukocytosis on lab review. Abdominal/Pelvis CT was ordered IMPRESSION: Very limited examination noting absence of intravenous contrast and minimal oral contrast present. Interval increase in air associated with the right psoas and right flank, dots of air now extend as high as the retrocrural region at L1 series 2 image 61, appearing in continuity with the findings suggesting abscess and/or phlegmon in the right psoas, right iliac , inseparable from fluid tracking along the right paracolic gutter and also inseparable from the abnormality which brings the patient to the present CT in the right posterior soft tissues. In the area of the previously described posterior right subcutaneous tissues where there was fluid seen tracking to the skin surface previously, there is an interval increase in subcutaneous fat abnormality. Please note that this finding may be in continuity with the probable psoas abscess. Cannot determine on this noncontrast study whether this is phlegmon this order whether there is a drainable collection. If clarification of details of the soft tissues will alter management, either a contrast-enhanced CT or an MRI may be useful. Chest Xay - ???RML infiltrate PT will be admitted for further evaluation and treatment. Donitan ordered Case was RAMSES Raphael. He accepted pt for admission Result and plan was DW the pt and he agreed. (shondaHenry A) - Lab Interpretations Lab Results: 12/30/16 21:39 12/30/16 21:39 Lab Results 12/30/16 21:39: Sodium 138, Potassium 3.8, Chloride 98, Carbon Dioxide 30, Anion Gap 14, BUN 6 L, Creatinine 0.9, Est GFR ( Amer) > 60, Est GFR (Non -Af Amer) > 60, Random Glucose 82, Calcium 8.5, Total Bilirubin 0.6, AST 56, ALT 24, Alkaline Phosphatase 82, Total Protein 7.8, Albumin 3.7, Globulin 4.2, Albumin/Globulin Ratio 0.9 L, Lipase 24 12/30/16 21:39: PT 12.0 H, INR 1.11 H, APTT 30.6 12/30/16 21:39: WBC 18.5 H D, RBC 3.81, Hgb 8.7 L, Hct 28.2 L, MCV 74.0 L, MCH 22.8 L, MCHC 30.9 L, RDW 23.1 H, Plt Count 580 H, MPV 8.7, Gran % 80.8 H, Lymph % (Auto) 10.2 L, [place] % (Auto) 8.6 H, Eos % (Auto) 0.3 L, Baso % (Auto) 0.1, Gran # 14.92 H, Lymph # 1.9, [place] # 1.6 H, Eos # 0.1, Baso # 0.02 - RAD Interpretation Radiology Orders: 12/30/16 22:34 ABD & PELVIS W/O PO OR IV CONT [CT] Stat 12/30/16 22:38 CHEST TWO VIEWS (PA/LAT) [RAD] Stat - Medication Orders Current Medication Orders: Piperacillin Sod/Tazobactam Sod (Zosyn 3.375 In Ns 100ml) 100 mls @ 200 mls/hr IVPB STAT STA PRN Reason: Protocol Stop: 12/31/16 01:06 Discontinued Medications Hydromorphone HCl (Dilaudid) 1 mg IVP STAT STA Stop: 12/30/16 22:35 Last Admin: 12/30/16 23:05 Dose: 1 mg Sodium Chloride (Sodium Chloride 0.9%) 1,000 mls @ 999 mls/hr IV .Q1H1M STA Stop: 12/30/16 22:00 Last Admin: 12/30/16 21:45 Dose: 999 mls/hr Ketorolac Tromethamine (Toradol) 30 mg IVP STAT STA Stop: 12/30/16 21:55 Last Admin: 12/30/16 22:25 Dose: 30 mg Pantoprazole Sodium (Protonix Inj) 40 mg IVP STAT STA Stop: 12/30/16 20:57 Last Admin: 12/30/16 23:05 Dose: 40 mg - PA / UPHOLSTERY REPAIRER / Resident Statement / has reviewed & agrees with the documentation as recorded. / has examined the patient and agrees with the treatment plan. <Kenneth Alvarez - Last Filed: 12/31/16 00:48> Disposition/Present on Arrival - Present on Arrival Any Indicators Present on Arrival: No History of DVT/PE: No History of Uncontrolled Diabetes: No Urinary Catheter: No History of Decub. Ulcer: No History Surgical Site Infection Following: None - Disposition Have Diagnosis and Disposition been Completed?: Yes Disposition Time: 00:20 <Henry Benoit - Last Filed: 12/31/16 00:46> <Kenneth Alvarez - Last Filed: 12/31/16 00:48> - Disposition Diagnosis: Abdominal pain, Pneumonia Disposition: HOSPITALIZED Patient Problems: Current Active Problems Problem Status Onset Abdominal pain Acute Pneumonia Acute Condition: FAIR
[2016-12-31] MEDS ORDERED: Piperacillin/Tazobact 3.375 gm 100 ML IVPB STA (00:37)
[2016-12-31] MEDS: Sodium Chloride 0.9% 1,000 ML IV SCH ×2 (01:09→14:52)
[2016-12-31] MEDS: HYDROmorphone 0.5 mg/0.5 ml ISec IVP PRN ×4 (01:16→21:00)
--- NOTE | 2016-12-31 01:21 | CP.PCM.HP ---
Addendum entered and electronically signed by Denise Calvert DO 12/31/16 01:37: Pt currently refusing CT abdomen with PO contrast- will order MRI Original Note: <Denise Calvert - Last Filed: 12/31/16 01:35> History of Present Illness - History of Present Illness History of Present Illness: Internal medicine H & P for Hospitalist service- Denise Calvert, PGY-1 Pt S & E at bedside. 21 M w/PMH sig for Crohn's and anemia admitted for abdominal pain x 1 wk. Pain is sharp/stabbing, right sided with radiation to back, moderate to severe intensity, worsened over past week. Alleviated by certain positions, Dilaudid, aggravated by certain foods/positions. Admits to diarrhea daily, subjective fevers, cough, headache. Denies N/V, chills, CP, palpitations , sore throat, SOB, rhinorrhea, hearing changes, vision changes, constipation, wt loss. Note: Pt has been seen in ED in [facility] system multiple times in past for similar- [place] [facility] just switched PMDs- attempting to set up outpatient pain mgmt PMH: Crohns on Remicaide Q4-6 wks, anemia PSH: multiple abdominal surgerys, IR & D for abscesses All: Benadryl, Shellfish, FISH, ketoralac SH: Denies ETOH use, current tobacco use, illicit drug use PMD: [facility]: [facility] Present on Admission - Present on Admission Any Indicators Present on Admission: No History of DVT/PE: No History of Uncontrolled Diabetes: No Urinary Catheter: No Decubitus Ulcer Present: No Review of Systems - Review of Systems All systems: reviewed and no additional remarkable complaints except - Constitutional Constitutional: Chills, Fever, Headache. absent: Weight Loss, Weakness - EENT Eyes: absent: Blurred Vision, Change in Vision, Diplopia Ears: absent: Decreased Hearing Nose/Mouth/Throat: absent: Nasal Congestion, Sore Throat - Cardiovascular Cardiovascular: absent: Chest Pain, Palpitations, Pedal Edema - Respiratory Respiratory: Cough - Gastrointestinal Gastrointestinal: Abdominal Pain, Diarrhea. absent: Constipation, Nausea, Vomiting - Genitourinary Genitourinary: absent: Dysuria - Musculoskeletal Musculoskeletal: absent: Numbness, Tingling - Integumentary Integumentary: Non-Healing Lesions, Wounds - Neurological Neurological: absent: Weakness Past Patient History - Infectious Disease Hx of Infectious Diseases: None - Past Medical History & Family History Past Medical History?: Yes - Past Social History Smoking Status: Never Smoked - CARDIAC Hx Cardiac Disorders: No - PULMONARY Hx Respiratory Disorders: No - NEUROLOGICAL Hx Transient Ischemic Attacks (TIA): No - HEENT Hx HEENT Problems: No - RENAL Hx Chronic Kidney Disease: No - ENDOCRINE/METABOLIC Hx Endocrine Disorders: No - HEMATOLOGICAL/ONCOLOGICAL Hx Anemia: Yes (Fe Def Anemia) - INTEGUMENTARY Hx Dermatological Problems: No - MUSCULOSKELETAL/RHEUMATOLOGICAL Hx Musculoskeletal Disorders: No Hx Falls: No - GASTROINTESTINAL Hx Crohn's Disease: Yes (multiple surgeries fistulas per patient) - GENITOURINARY/GYNECOLOGICAL Hx Genitourinary Disorders: No - PSYCHIATRIC Hx Psychophysiologic Disorder: No Hx Substance Use: No - SURGICAL HISTORY Other/Comment: Abd surg. for intraabd. abscesses x 7 last [place] 10[place]2016 [place] [facility] [place] ANESTHESIA Hx Anesthesia: Yes Hx Anesthesia Reactions: No Hx Malignant Hyperthermia: No Meds Allergies/Adverse Reactions: Allergies Allergy/AdvReac Type Severity Reaction Status Date / Time diphenhydramine Allergy RASH Verified 12/30/16 20:20 [From Benadryl] FISH Allergy RASH Verified 12/30/16 20:19 ketorolac [From Toradol] Allergy RASH Verified 12/30/16 20:19 shellfish derived AdvReac ANGIOEDEMA Verified 12/30/16 20:19 Physical Exam - Constitutional Appears: Non-toxic, No Acute Distress - Head Exam Head Exam: ATRAUMATIC, NORMAL INSPECTION, NORMOCEPHALIC - Eye Exam Eye Exam: EOMI, Normal appearance - Neck Exam Neck exam: Positive for: Full Rom, Normal Inspection - Respiratory Exam Respiratory Exam: Clear to Auscultation Bilateral, NORMAL BREATHING PATTERN. absent: Rales, Rhonchi, Wheezes, Respiratory Distress - Cardiovascular Exam Cardiovascular Exam: Tachycardia, +S1, +S2 - GI/Abdominal Exam GI & Abdominal Exam: Hyperactive Bowel Sounds, Soft, Tenderness (over wounds in periumbilical region at 7 o'clock, and wound in suprapubic to right, both with purulent drainage, some yellow and pink tissue visible). absent: Distended, Firm - Extremities Exam Extremities exam: Positive for: full ROM. Negative for: pedal edema - Neurological Exam Neurological exam: Alert, CN II-XII Intact, Oriented x3 - Psychiatric Exam Psychiatric exam: Normal Affect, Normal Mood - Skin Skin Exam: Warm Additional comments: see extremity exam for skin findings of abdomen Results - Vital Signs Recent Vital Signs: Last Vital Signs Temp 100.6 F H 12/30/16 20:07 Pulse 100 H 12/30/16 22:39 Resp 16 12/30/16 22:39 BP 130/42 L 12/30/16 22:39 Pulse Ox 100 12/30/16 22:39 - Labs Result Diagrams: 12/30/16 21:39 12/30/16 21:39 Labs: Laboratory Results - last 24 hr 12/30/16 12/30/16 12/30/16 21:39 21:39 21:39 WBC 18.5 H D RBC 3.81 Hgb 8.7 L Hct 28.2 L MCV 74.0 L MCH 22.8 L MCHC 30.9 L RDW 23.1 H Plt Count 580 H MPV 8.7 Gran % 80.8 H Lymph % (Auto) 10.2 L [place] % (Auto) 8.6 H Eos % (Auto) 0.3 L Baso % (Auto) 0.1 Gran # 14.92 H Lymph # 1.9 [place] # 1.6 H Eos # 0.1 Baso # 0.02 PT 12.0 H INR 1.11 H APTT 30.6 Sodium 138 Potassium 3.8 Chloride 98 Carbon Dioxide 30 Anion Gap 14 BUN 6 L Creatinine 0.9 Est GFR ( Amer) > 60 Est GFR (Non-Af Amer) > 60 Random Glucose 82 Calcium 8.5 Total Bilirubin 0.6 AST 56 ALT 24 Alkaline Phosphatase 82 Total Protein 7.8 Albumin 3.7 Globulin 4.2 Albumin/Globulin Ratio 0.9 L Lipase 24 Assessment & Plan - Assessment and Plan (Free Text) Assessment: 21 yo M w/PMH sig for Crohns and anemia admitted for abdominal pain, leukocytosis, non-healing abdominal wounds. Pt currently stable. Plan: Abdominal pain w/hx of Crohns Febrile Tmax 100.6 Leukocytosis of 18.5 Tylenol PRN Fever Morphine 4mg Q8H PRN mod pain Dilaudid 0.5mg Q8H PRN severe pain Zofran 4mg Q6H PRN Started Vancomycin 1gm Q24H Started Flagyl 500mg Q8H FU wound cx & gram stain FU blood cx FU U/A Wound care referral- pt had toilet tissue covering wounds w/purulent strike through- wound was cleansed with betadine and covered with gauze w/o tape securing dressing at pt's request CT ab/pelvis w/o contrast: Very limited examination noting absence of intravenous contrast and minimal oral contrast present. Interval increase in air associated with the right psoas and right flank, dots of air now extend as high as the retrocrural region at L1 series 2 image 61, appearing in continuity with the findings suggesting abscess and/or phlegmon in the right psoas, right iliac , inseparable from fluid tracking along the right paracolic gutter and also inseparable from the abnormality, which brings the patient to the present CT in the right posterior soft tissues. In the area of the previously described posterior right subcutaneous tissues where there was fluid seen tracking to the skin surface previously, there is an interval increase in subcutaneous fat abnormality. Please note that this finding may be in continuity with the probable psoas abscess. Cannot determine on this noncontrast study whether this is phlegmon this order whether there is a drainable collection. If clarification of details of the soft tissues will alter management, either a contrast-enhanced CT or an MRI may be useful. Will repeat CT ab/pelvis w/PO contrast- no IV contrast due to allergy to shellfish Surgery consulted- Sina Diarrhea NS @100 CLD GI consulted- Marilyn Hx anemia Hgb 8.70- basline range 7.7 to 9.3 Hct 28.2, baseline range 24.9 - 31.7 Monitor GI/DVT ppx Pepcid SCDs Lovenox Dispo Admit to Med-surg VS Q6H CLD Activity as tolerated DW attending - Date & Time Date: 12/31/16 Time: 23:45 Decision To Admit - Pt Status Changed To: Hospital Disposition Of: Observation - . Bed Request Type: Med/Surg Admitting Physician: Linh Raphael <Linh Raphael - Last Filed: 12/31/16 02:54> Results - Vital Signs Recent Vital Signs: Last Vital Signs Temp 98.4 F 12/31/16 02:43 Pulse 84 12/31/16 02:43 Resp 18 12/31/16 02:43 BP 115/59 L 12/31/16 02:43 Pulse Ox 100 12/31/16 02:43 - Labs Result Diagrams: 12/30/16 21:39 12/30/16 21:39 Attending/Attestation - Attestation I have personally seen and examined this patient.: Yes I have fully participated in the care of the patient.: Yes I have reviewed all pertinent clinical information: Yes Notes (Text): 12/31/16 02:53 Patient was seen when she was in bed # 20 in the ER. Agree with history , physical examination, assessment and plan.
[2016-12-31] MEDS ORDERED: Iohexol 240 (50 ml) ONE (01:28)
--- NOTE | 2016-12-31 02:05 | CP.PCM.CON ---
Addendum entered and electronically signed by Magalys Rossi DO 12/31/16 03:29 : Patient refused repeat CT abdomen and pelvis with PO contrast. Primary team aware. Back exam: R flank wound with profuse purulent fluid expressible Abdominal exam: 1 small skin wound approximately 4-5cm under the umbilicus with minimal muco-purulent drainage. 1 small skin wound in the RLQ with moderate muco -purulent drainage expressed. No surrounding erythema or active bleeding Original Note: <Magalys Rossi - Last Filed: 12/31/16 03:10> History of Present Illness - History of Present Illness History of Present Illness: General Surgery consult for Dr. Andino Consulted for: Multiple chronic enterocutaneous fistulas and intra-abdominal abscess d/t crohns Pt is 21M with PMH of crohns with chronic right lower quadrant intra-abdominal abscesses with cutaneous fistulas, iron deficiency, anemia, and opiate abuse with drug seeking behavior and PSH including (per patient--operations performed at [facility] [place] 7 abdominal abscess drains and 2 abdominal surgeries to "clear out the abscesses" with probably a bowel resection at some point per anastamosis seen on CT. Patient presented to the ED tonight with worsened Right sided abdominal pain and flank pain for 2-3weeks for which he has been to the ER and hospitalized at multiple institutions multiple times in the past month. Patient states that he has felt more swollen on his right flank and the pain is spreading to his proximal thigh. Patient also states that purulent drainage from the right flank fistula and abdominal fistulas has increased. Patient has been treated with multiple IV antibiotics for the abscesses and enterocutaneous fistulas over the past few months. Patient was also treated for pneumonia with levaquin recently. Patient reports chronic diarrhea and feeling febrile since he was diagnosed with Crohns but denies any recent changes in these symptoms. Patient also denies nausea, vomiting, hematochezia, melena, dysuria, hematuria, chest pain, SOB, cough, light headedness or any other symptoms. Patient states that he sees a GI doctor for monthly remicaid and will have another dose in a week or two. Patient states that he supposed to set up an appointment with a pain specialist outpatient but hasn't yet done so. Patient had mild fever 100.6 and HR 100-[address] abdomen and pelvis in the ER: Limited visualization of R flank soft tissue, but possible increase in air in the previous abscess on R psoas/iliac muscles since last CT, uncertain if fluid collections are drainable. PMH: Crohn's, Anemia PSH: 7 drainages of intra-abdominal abscesses, bowel resection SH: No ETOH/tobacco, + drug seeking behavior Meds: See MAR All: shell fish, benadryl Review of Systems - Review of Systems All systems: reviewed and no additional remarkable complaints except (as per HPI ) - Constitutional Constitutional: As Per HPI. absent: Headache - Cardiovascular Cardiovascular: As Per HPI. absent: Dyspnea, Leg Edema, Palpitations, Pedal Edema - Respiratory Respiratory: absent: Cough, Dyspnea, Dyspnea on Exertion, Chest Congestion - Gastrointestinal Gastrointestinal: As Per HPI - Genitourinary Genitourinary: As Per HPI. absent: Dysuria, Hematuria, Pyuria - Musculoskeletal Musculoskeletal: Back Pain. absent: Numbness, Tingling - Integumentary Integumentary: As Per HPI, Wounds (two abdominal wounds draining purulent fluid , flank wound draining purulent fluid) - Neurological Neurological: absent: Abnormal Gait, Dizziness, Headaches, Syncope - Endocrine Endocrine: absent: Palpitations, Polyuria Past Patient History - Infectious Disease Hx of Infectious Diseases: None - Past Medical History & Family History Past Medical History?: Yes - Past Social History Smoking Status: Never Smoked - CARDIAC Hx Cardiac Disorders: No - PULMONARY Hx Respiratory Disorders: No - NEUROLOGICAL Hx Transient Ischemic Attacks (TIA): No - HEENT Hx HEENT Problems: No - RENAL Hx Chronic Kidney Disease: No - ENDOCRINE/METABOLIC Hx Endocrine Disorders: No - HEMATOLOGICAL/ONCOLOGICAL Hx Anemia: Yes (Fe Def Anemia) - INTEGUMENTARY Hx Dermatological Problems: No - MUSCULOSKELETAL/RHEUMATOLOGICAL Hx Musculoskeletal Disorders: No Hx Falls: No - GASTROINTESTINAL Hx Crohn's Disease: Yes (multiple surgeries fistulas per patient) - GENITOURINARY/GYNECOLOGICAL Hx Genitourinary Disorders: No - PSYCHIATRIC Hx Psychophysiologic Disorder: No Hx Substance Use: No - SURGICAL HISTORY Other/Comment: Abd surg. for intraabd. abscesses x 7 last surgery 10/2016 at [facility] [place] - ANESTHESIA Hx Anesthesia: Yes Hx Anesthesia Reactions: No Hx Malignant Hyperthermia: No Meds Allergies/Adverse Reactions: Allergies Allergy/AdvReac Type Severity Reaction Status Date / Time diphenhydramine Allergy RASH Verified 12/30/16 20:20 [From Benadryl] FISH Allergy RASH Verified 12/30/16 20:19 ketorolac [From Toradol] Allergy RASH Verified 12/30/16 20:19 shellfish derived AdvReac ANGIOEDEMA Verified 12/30/16 20:19 - Medications Medications: Current Medications Acetaminophen (Tylenol 325mg Tab) 650 mg PO Q6 PRN PRN Reason: Fever >100.4 F Enoxaparin Sodium (Lovenox) 40 mg SC DAILY [facility] PRN Reason: Protocol Famotidine (Pepcid) 20 mg PO BID [facility] Hydromorphone HCl (Dilaudid) 0.5 mg IVP Q8H PRN PRN Reason: Pain, severe (8-10) Last Admin: 12/31/16 01:16 Dose: 0.5 mg Sodium Chloride (Sodium Chloride 0.9%) 1,000 mls @ 100 mls/hr IV .Q10H [facility] Last Admin: 12/31/16 01:09 Dose: 100 mls/hr Metronidazole (Flagyl) 500 mg in 100 mls @ 100 mls/hr IVPB Q8 [facility] PRN Reason: Protocol Vancomycin HCl (Vancomycin 1gm) 1 gm in 250 mls @ 167 mls/hr IVPB DAILY [facility] PRN Reason: Protocol Morphine Sulfate (Morphine) 4 mg IVP Q6H PRN PRN Reason: Pain, moderate (4-7) Ondansetron HCl (Zofran Inj) 4 mg IVP Q6 PRN PRN Reason: Nausea/Vomiting Physical Exam - Constitutional Appears: Well, Non-toxic, No Acute Distress - Head Exam Head Exam: ATRAUMATIC, NORMOCEPHALIC - Eye Exam Eye Exam: Normal appearance. absent: Conjunctival injection, Scleral icterus - ENT Exam ENT Exam: Mucous Membranes Moist, Normal Oropharynx - Respiratory Exam Respiratory Exam: NORMAL BREATHING PATTERN. absent: Accessory Muscle Use, Respiratory Distress - Cardiovascular Exam Cardiovascular Exam: Tachycardia, REGULAR RHYTHM - GI/Abdominal Exam GI & Abdominal Exam: Guarding (voluntary), Soft, Tenderness (diffusely tender, worst on RLQ). absent: Distended - Extremities Exam Extremities exam: Positive for: pedal pulses present. Negative for: calf tenderness, pedal edema, tenderness - Back Exam Back exam: absent: CVA tenderness (L), CVA tenderness (R) - Neurological Exam Neurological exam: Alert, Oriented x3 - Psychiatric Exam Psychiatric exam: Normal Affect, Normal Mood - Skin Skin Exam: Dry, Normal Color, Warm Results - Vital Signs Recent Vital Signs: Last Vital Signs Temp 100.6 F H 12/30/16 20:07 Pulse 100 H 12/30/16 22:39 Resp 16 12/30/16 22:39 BP 130/42 L 12/30/16 22:39 Pulse Ox 100 12/30/16 22:39 - Labs Result Diagrams: 12/30/16 21:39 12/30/16 21:39 Labs: Laboratory Results - last 24 hr 12/30/16 12/30/16 12/30/16 21:39 21:39 21:39 WBC 18.5 H D RBC 3.81 Hgb 8.7 L Hct 28.2 L MCV 74.0 L MCH 22.8 L MCHC 30.9 L RDW 23.1 H Plt Count 580 H MPV 8.7 Gran % 80.8 H Lymph % (Auto) 10.2 L [place] % (Auto) 8.6 H Eos % (Auto) 0.3 L Baso % (Auto) 0.1 Gran # 14.92 H Lymph # 1.9 [place] # 1.6 H Eos # 0.1 Baso # 0.02 PT 12.0 H INR 1.11 H APTT 30.6 Sodium 138 Potassium 3.8 Chloride 98 Carbon Dioxide 30 Anion Gap 14 BUN 6 L Creatinine 0.9 Est GFR ( Amer) > 60 Est GFR (Non-Af Amer) > 60 Random Glucose 82 Calcium 8.5 Total Bilirubin 0.6 AST 56 ALT 24 Alkaline Phosphatase 82 Total Protein 7.8 Albumin 3.7 Globulin 4.2 Albumin/Globulin Ratio 0.9 L Lipase 24 Assessment & Plan - Assessment and Plan (Free Text) Assessment: 21M with PMH including chronic anemia, crohns, opiate abuse with drug seeking tendencies, intra-abdominal abscess, and multiple right flank and right abdomen enterocutaneous fistulas complaining of worsening abdominal pain and fistula drainage WBC 18.5 T: 100.6 H/H: 8.7/28.2 CT abdomen and pelvis in the ER: Limited visualization of R flank soft tissue, but possible increase in air in the previous abscess on R psoas/iliac muscles since last CT, uncertain if fluid collections are drainable. Plan: Abx CLD AM labs F/U GI consults F/u wound culture F/U C. diff stool F/u MRI Analgesics Serial Abd exams Further recs per Dr. Sina Rossi, PGY1 <Dick Andino - Last Filed: 01/04/17 20:29> Results - Vital Signs Recent Vital Signs: Last Vital Signs Temp 96.9 F L 01/02/17 06:00 Pulse 88 01/02/17 06:00 Resp 18 01/02/17 06:00 BP 132/74 01/02/17 06:00 Pulse Ox 100 01/02/17 06:00 - Labs Result Diagrams: 01/02/17 06:00 01/02/17 06:00 Attending/Attestation - Attestation I have personally seen and examined this patient.: Yes I have fully participated in the care of the patient.: Yes I have reviewed all pertinent clinical information: Yes Notes (Text): 01/04/17 20:28 Pt was seen and examined at bedside on 12/31/16 Agree with above note and assessment Pt with Crohns dis and intraabdominal abscess Pt would need IR guided drainage of abscess C.w IV antibiotics Plan d.w pt and primary team in detail
[2016-12-31] MEDS: Morphine 4 mg/ml ISec IVP PRN ×4 (03:21→22:38)
[2016-12-31] MEDS: metroNIDAZOLE IV 500 mg/100 ml 500 MG/100 ML BAG IVPB SCH ×2 (03:21→14:52)
[2016-12-31] MEDS: Lactobacillus Acidophilus 500 MU Cap PO SCH ×3 (03:21→18:06)
[2016-12-31 03:51] VITALS: RESP 18
[2016-12-31] MEDS: Enoxaparin 40 mg Syringe SC SCH (09:01)
[2016-12-31 09:03] LABS: ADD MANUAL DIFF? NO
[2016-12-31 09:11] LABS: BASO # 0.01 K/mm3 (0.0-2.0); BASO % 0.1 % (0.0-3.0); EOS # 0.1 (0.0-0.7); EOS % 0.4 % (1.5-5.0); GRAN # 12.38 (1.4-6.5); GRAN % 86.8 % (50.0-68.0); HEMATOCRIT 26.9 % (42.0-52.0); LYMPH # 0.9 (1.2-3.4); LYMPH % 6.2 % (22.0-35.0); MEAN CELL VOLUME 74.1 fL (80.0-105.0); MEAN CORPUSCULAR HEMOGLOBIN 23.1 pg (25.0-35.0); MEAN CORPUSCULAR HGB CONC 31.2 g/dl (31.0-37.0); MONO # 0.9 (0.1-0.6); MONO % 6.5 % (1.0-6.0); PLATELET COUNT 465 10^3/uL (120.0-450.0); RED CELL DISTRIBUTION WIDTH 22.8 % (11.5-14.5); WHITE BLOOD COUNT 14.3 10^3/ul (4.5-11.0)
[2016-12-31 09:17] LABS: ALB/GLOB RATIO 0.9 (1.1-1.8); ALKALINE PHOSPHATASE 80 U/L (38-133); ALT/SGPT 24 U/L (7-56); AST/SGOT 36 U/L (15-59); BILIRUBIN,TOTAL 0.5 mg/dL (0.2-1.3); BLOOD UREA NITROGEN 6 mg/dL (7-21); CALCIUM 8.3 mg/dL (8.4-10.5); CARBON DIOXIDE 28 mmol/L (21-33); GFR AFRICAN-AMERICAN > 60; GLUCOSE,RANDOM 109 mg/dL (70-110); MAGNESIUM 2.1 mg/dL (1.7-2.2); PHOSPHOROUS 2.7 mg/dL (2.5-4.5); POTASSIUM 3.8 mmol/L (3.6-5.0); SODIUM 137 mmol/L (132-148); TOTAL PROTEIN 7.3 g/dL (5.8-8.3)
[2016-12-31 09:18] LABS: CHLORIDE 101 mmol/L (98-107)
[2016-12-31] MEDS ORDERED: Vancomycin 1gm in NS 250ml 1 GM/250 ML BAG IVPB SCH (10:00)
--- NOTE | 2016-12-31 10:09 | RAD ---
HISTORY: cough COMPARISON: 12/22/2016. TECHNIQUE: Chest PA and lateral FINDINGS: LUNGS: No active pulmonary disease. PLEURA: No significant pleural effusion identified. No pneumothorax apparent. CARDIOVASCULAR: Normal. OSSEOUS STRUCTURES: No significant abnormalities. VISUALIZED UPPER ABDOMEN: Normal. OTHER FINDINGS: None. IMPRESSION: No active disease.
[2016-12-31] MEDS: Meropenem 1g/NS 100mL IVPB 1 GM/100 ML PIGGYBACK IVPB SCH (21:53)
--- NOTE | 2016-12-31 22:48 | CON ---
DATE: 12/31/2016 This patient was seen and evaluated earlier. This is a 21-year-old patient with a past medical history of Crohn disease. He has been followed by Dr. Rodgers at [facility] on Remicade infusion, admitted with worsening of the abdominal pain and swelling in the right flank area and increased discharge. The patient has multiple enterocutaneous fistulas and the patient, ever since he has been started on the Remicade, these fistulas started closing up. He mentioned to me the fistulas have closed and the only thing which is more draining was in the right flank area and discharge also and now he noticed more swelling and discomfort and that is reason mainly he came to the hospital this time. He did complain of having some fever, low grade 100.6. He has been on Remicade infusions with the last Remicade dose is supposed to be in another 1-2 weeks. The patient has been diagnosed with Crohn's disease nearly about 2 years now. His primary doctor is Dr. Brito and the patient's mailroom courier doctor is Vishal in [facility]. PAST SURGICAL HISTORY: Includes abdominal surgeries and drainage of the abscesses. ALLERGIES: HE IS ALLERGIC TO BENADRYL, FISH AND TORADOL. SOCIAL HISTORY: He denies alcohol. Positive for smoking. REVIEW OF SYSTEMS: Positive as above. Other systems reviewed. PHYSICAL EXAMINATION: GENERAL: The patient is lying on the bed, not in acute distress. VITAL SIGNS: Temperature is 98.4, blood pressure is 115/59, respirations 18. HEENT: Atraumatic, anicteric. NECK: Supple. HEART: S1, S2 heard. LUNGS: Bilateral air entry present. ABDOMEN: Soft. There are multiple incisions and drainage of the fistulous areas noticed. They all look like healing. There is swelling on the right side of the abdomen with a small opening, tender. EXTREMITIES: No edema. No cyanosis. NEUROLOGIC: Alert, oriented. Moves all the extremities. LABORATORY DATA: WBC count initially when he came into the ER was 18.5, it has come down to 14.3, hemoglobin 8.4, hematocrit 26.9, platelets 465. Chemistry is essentially unremarkable. IMPRESSION: This 21-year-old patient with Crohn disease on Remicade was admitted with increasing right flank pain and has a fistulous opening noticed close by, history of multiple abdominal surgeries done in the past with enterocutaneous fistulas, mostly clinically appears to be improving with Remicade regimen. The real concern now is another abscess with a draining fistula opening. The CT scan was reviewed and also requested for MRI and will follow up on that. The patient has been also followed by surgery. I did discuss with the nursing staff. ID consult on board and the patient has been on Zyvox and Flagyl along with the meropenem. I will continue the antibiotics and will hold off in the setting of an active infection. Continuing with Remicade is relatively contraindicated, would hold off until the active infective episode or abscess is controlled. The patient needs to be followed with Dr. Rodgers his longtime mailroom courier who manages the Crohn disease once the acute episode is resolved. I had a long discussion with the patient who was fully understands. Thank you very much for allowing us to participate in the care of the patient. Teofilo Sanders MD cc: [id number] TT: 12/31/2016 22:47:16 Confirmation # [id number] Dictation # [id number] bill EASON
--- NOTE | 2017-01-01 00:33 | CON ---
DATE: 12/31/2016 CHIEF COMPLAINT: Weakness and abdominal wound discharge times several days. HISTORY OF PRESENT ILLNESS: This is a 21-year-old male with recent hospitalization with a history of Crohn's disease and microabscesses and fistulas. 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 No fevers, no chills, no chest pain, shortness of breath or cough. 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 PAST SURGICAL HISTORY: Significant for abdominal surgery done at [facility]. ALLERGIES: THE PATIENT IS ALLERGIC TO FISH, SHELLFISH, KETOROLAC, DIPHENHYDRAMINE. MEDICATIONS: At home are noted and reviewed. PHYSICAL EXAMINATION: GENERAL: The patient is in bed, no acute distress with answering questions appropriately. VITAL SIGNS: Temperature of 98.4, T-max is 100.6 and heart rate of 100, respiratory rate of 18, blood pressure is 130/60. HEENT: Unremarkable. NECK: Supple. LUNGS: Have decreased breath sounds. HEART: Normal S1, S2. ABDOMEN: There is purulent discharge from one of the wounds. No rebound or guarding. LABORATORY EXAMINATION: Reveals a white count of 18,500; hemoglobin of 8; platelets of 580,000. The patient is 80% granulocytosis. Coagulation is noted. Chemistries reveals a BUN of 6, creatinine of 0.8. Urinalysis is noted to be negative from the and the patient had an HIV test done last month, which was negative. Microbiology reveals the patient did have Klebsiella pneumoniae from 12/16/2016, which was relatively sensitive Klebsiella. The patient had a CAT scan of the abdomen and pelvis yesterday, which was read by Dr. Al , a very limited exam, noting the absence of intravenous contrast and minimal oral contrast, possible right psoas, right flank dots of air noted, now extended. The patient also had a chest x-ray, which was read by Dr. Matt Patel, no active lung disease. ASSESSMENT AND PLAN: This is a 21-year-old with Crohn's disease, recent hospitalization, microabscesses and fistula, presenting with sepsis with abdominal wall wound infection and questionable psoas abscess. We will treat the patient with meropenem and zyvox, diflucan, and p.o. Flagyl for the fistula pending culture results, review of the CAT scan and initial workup results. We will follow closely with you. Jesse Wang MD cc: [id number] TT: 01/01/2017 00:33:20 Confirmation # [id number] Dictation # [id number] mn YUMI
[2017-01-01] MEDS: HYDROmorphone 0.5 mg/0.5 ml ISec IVP PRN ×4 (03:14→21:24)
[2017-01-01] MEDS: Morphine 4 mg/ml ISec IVP PRN ×3 (05:46→17:45)
[2017-01-01] MEDS: Meropenem 1g/NS 100mL IVPB 1 GM/100 ML PIGGYBACK IVPB SCH ×3 (05:56→21:25)
[2017-01-01 08:49] LABS: ADD MANUAL DIFF? NO
[2017-01-01 09:07] LABS: BASO # 0.02 K/mm3 (0.0-2.0); BASO % 0.1 % (0.0-3.0); EOS # 0.1 (0.0-0.7); EOS % 0.7 % (1.5-5.0); GRAN # 12.53 (1.4-6.5); GRAN % 80.4 % (50.0-68.0); HEMATOCRIT 26.7 % (42.0-52.0); LYMPH % 6.2 % (22.0-35.0); MEAN CELL VOLUME 74.2 fL (80.0-105.0); MEAN CORPUSCULAR HEMOGLOBIN 22.5 pg (25.0-35.0); MEAN CORPUSCULAR HGB CONC 30.3 g/dl (31.0-37.0); MEAN PLATELET VOLUME 8.5 fl (7.0-11.0); MONO % 12.6 % (1.0-6.0); PLATELET COUNT 466 10^3/uL (120.0-450.0); RED CELL DISTRIBUTION WIDTH 22.7 % (11.5-14.5); WHITE BLOOD COUNT 15.6 10^3/ul (4.5-11.0)
[2017-01-01 09:13] LABS: ALB/GLOB RATIO 0.8 (1.1-1.8); ALKALINE PHOSPHATASE 89 U/L (38-133); ALT/SGPT 29 U/L (7-56); AST/SGOT 23 U/L (15-59); BILIRUBIN,TOTAL 0.4 mg/dL (0.2-1.3); BLOOD UREA NITROGEN 6 mg/dL (7-21); CALCIUM 8.5 mg/dL (8.4-10.5); CARBON DIOXIDE 27 mmol/L (21-33); CHLORIDE 104 mmol/L (98-107); GFR AFRICAN-AMERICAN > 60; GLUCOSE,RANDOM 77 mg/dL (70-110); POTASSIUM 3.8 mmol/L (3.6-5.0); SODIUM 139 mmol/L (132-148)
[2017-01-01] MEDS: Lactobacillus Acidophilus 500 MU Cap PO SCH ×2 (09:24→17:45)
[2017-01-01] MEDS: Enoxaparin 40 mg Syringe SC SCH (09:24)
--- NOTE | 2017-01-01 11:46 | CP.PCM.PN ---
<Aric Easley - Last Filed: 01/01/17 11:43> Subjective - Date & Time of Evaluation Date of Evaluation: 01/01/17 Time of Evaluation: 07:55 - Subjective Subjective: Hospitalist Progress Note: Pt seen and examined at bedside. No acute events overnight. Low grade fever overnight and blood cx ordered. Pt states that his pain is well controlled. He still c/o purulent drainage from abdominal wound. He denies any headaches, dizziness, f/c, sob, cp, palpitations, urinary or bm changes. Objective - Vital Signs/Intake and Output Vital Signs (last 24 hours): Temp Pulse Resp BP Pulse Ox 98.3 F 92 H 18 110/60 99 01/01/17 06:00 01/01/17 06:00 01/01/17 06:00 01/01/17 06:00 01/01/17 06:00 Intake and Output: 01/01/17 01/01/17 06:59 18:59 Intake Total 360 Output Total 3450 Balance -3090 - Medications Medications: Current Medications Acetaminophen (Tylenol 325mg Tab) 650 mg PO Q6 PRN PRN Reason: Fever >100.4 F Last Admin: 12/31/16 19:46 Dose: 650 mg Enoxaparin Sodium (Lovenox) 40 mg SC DAILY [facility] PRN Reason: Protocol Last Admin: 01/01/17 09:24 Dose: 40 mg Famotidine (Pepcid) 20 mg PO BID [facility] Last Admin: 01/01/17 09:24 Dose: 20 mg Fluconazole (Diflucan) 200 mg PO DAILY [facility] PRN Reason: Protocol Stop: 01/15/17 10:01 Last Admin: 01/01/17 09:24 Dose: 200 mg Hydromorphone HCl (Dilaudid) 0.5 mg IVP Q6H PRN PRN Reason: Pain, severe (8-10) Last Admin: 01/01/17 09:24 Dose: 0.5 mg Sodium Chloride (Sodium Chloride 0.9%) 1,000 mls @ 100 mls/hr IV .Q10H [facility] Last Admin: 12/31/16 14:52 Dose: 100 mls/hr Meropenem 1g/NS 100mL IVPB (Meropenem 1g/Ns 100ml Ivpb) 1 gm in 100 mls @ 100 mls/hr IVPB Q8 [facility] PRN Reason: Protocol Stop: 01/14/17 22:01 Last Admin: 01/01/17 05:56 Dose: 100 mls/hr Ibuprofen (Motrin Tab) 600 mg PO Q6H PRN PRN Reason: Pain, moderate (4-7) Last Admin: 12/31/16 23:48 Dose: 600 mg Lactobacillus Acidophilus (Bacid Acidophilus) 1 cap PO BID [facility] Last Admin: 01/01/17 09:24 Dose: 1 cap Linezolid (Zyvox) 600 mg PO BID [facility] PRN Reason: Protocol Stop: 01/15/17 10:01 Last Admin: 01/01/17 09:24 Dose: 600 mg Metronidazole (Flagyl) 500 mg PO Q8 [facility] PRN Reason: Protocol Stop: 01/14/17 22:01 Last Admin: 01/01/17 05:46 Dose: 500 mg Morphine Sulfate (Morphine) 4 mg IVP Q6H PRN PRN Reason: Pain, moderate (4-7) Last Admin: 01/01/17 05:46 Dose: 4 mg Ondansetron HCl (Zofran Inj) 4 mg IVP Q6 PRN PRN Reason: Nausea/Vomiting - Labs Labs: 01/01/17 08:10 01/01/17 08:10 PT 12.0 Seconds (9.9-11.8) H 12/30/16 21:39 INR 1.11 (0.93-1.08) H 12/30/16 21:39 APTT 30.6 Seconds (23.7-30.8) 12/30/16 21:39 - Constitutional Appears: No Acute Distress - Head Exam Head Exam: ATRAUMATIC, NORMAL INSPECTION, NORMOCEPHALIC - Eye Exam Eye Exam: EOMI, Normal appearance, PERRL - ENT Exam ENT Exam: Mucous Membranes Moist, Normal Exam - Neck Exam Neck Exam: Full ROM, Normal Inspection. absent: Lymphadenopathy - Respiratory Exam Respiratory Exam: Clear to Ausculation Bilateral, NORMAL BREATHING PATTERN. absent: Wheezes - Cardiovascular Exam Cardiovascular Exam: REGULAR RHYTHM, RRR, +S1, +S2. absent: Murmur - GI/Abdominal Exam GI & Abdominal Exam: Soft, Tenderness. absent: Distended, Guarding Additional comments: Dressing changed in place by surgery - Extremities Exam Extremities Exam: absent: Calf Tenderness - Back Exam Back Exam: NORMAL INSPECTION - Neurological Exam Neurological Exam: Alert, Awake, CN II-XII Intact, Normal Gait, Oriented x3 - Psychiatric Exam Psychiatric exam: Normal Affect, Normal Mood - Skin Skin Exam: Dry, Intact, Normal Color, Warm Assessment and Plan - Assessment and Plan (Free Text) Assessment: 21 yo M w/PMH sig for Crohns and anemia admitted for abdominal pain, leukocytosis, non-healing abdominal wounds/ fistula. 1. Abdominal pain: - Pain control - F/u Surgery Dr Andino recs - F/U GI Dr Sanders recs - F/u ID recs - Cont Zyvox, Ernst, Flagyl, Fluconazole - Cont IVF 100ml/h r - CT abdomen and pelvis in the ER: Limited visualization of R flank soft tissue , but possible increase in air in the previous abscess on R psoas/iliac muscles since last CT - Pending MRI of Abdomen - F/u Wound cx 2. Diarrhea - F/u C. diff tox/ antigen 3. GI/DVT ppx - Lovenox SC and Pepcid - Liquid diet Case and plan was seen, reviewed, and discussed in detail with Dr Ayoub. <José Ayoub - Last Filed: 01/01/17 13:41> Objective - Vital Signs/Intake and Output Vital Signs (last 24 hours): Temp Pulse Resp BP Pulse Ox 98.3 F 92 H 18 110/60 99 01/01/17 06:00 01/01/17 06:00 01/01/17 06:00 01/01/17 06:00 01/01/17 06:00 Intake and Output: 01/01/17 01/01/17 06:59 18:59 Intake Total 360 Output Total 3450 Balance -3090 - Medications Medications: Current Medications Acetaminophen (Tylenol 325mg Tab) 650 mg PO Q6 PRN PRN Reason: Fever >100.4 F Last Admin: 12/31/16 19:46 Dose: 650 mg Enoxaparin Sodium (Lovenox) 40 mg SC DAILY [facility] PRN Reason: Protocol Last Admin: 01/01/17 09:24 Dose: 40 mg Famotidine (Pepcid) 20 mg PO BID [facility] Last Admin: 01/01/17 09:24 Dose: 20 mg Fluconazole (Diflucan) 200 mg PO DAILY [facility] PRN Reason: Protocol Stop: 01/15/17 10:01 Last Admin: 01/01/17 09:24 Dose: 200 mg Hydromorphone HCl (Dilaudid) 0.5 mg IVP Q6H PRN PRN Reason: Pain, severe (8-10) Last Admin: 01/01/17 09:24 Dose: 0.5 mg Sodium Chloride (Sodium Chloride 0.9%) 1,000 mls @ 100 mls/hr IV .Q10H [facility] Last Admin: 12/31/16 14:52 Dose: 100 mls/hr Meropenem 1g/NS 100mL IVPB (Meropenem 1g/Ns 100ml Ivpb) 1 gm in 100 mls @ 100 mls/hr IVPB Q8 [facility] PRN Reason: Protocol Stop: 01/14/17 22:01 Last Admin: 01/01/17 13:15 Dose: 100 mls/hr Ibuprofen (Motrin Tab) 600 mg PO Q6H PRN PRN Reason: Pain, moderate (4-7) Last Admin: 12/31/16 23:48 Dose: 600 mg Lactobacillus Acidophilus (Bacid Acidophilus) 1 cap PO BID [facility] Last Admin: 01/01/17 09:24 Dose: 1 cap Linezolid (Zyvox) 600 mg PO BID [facility] PRN Reason: Protocol Stop: 01/15/17 10:01 Last Admin: 01/01/17 09:24 Dose: 600 mg Metronidazole (Flagyl) 500 mg PO Q8 [facility] PRN Reason: Protocol Stop: 01/14/17 22:01 Last Admin: 01/01/17 13:15 Dose: 500 mg Morphine Sulfate (Morphine) 4 mg IVP Q6H PRN PRN Reason: Pain, moderate (4-7) Last Admin: 01/01/17 11:43 Dose: 4 mg Ondansetron HCl (Zofran Inj) 4 mg IVP Q6 PRN PRN Reason: Nausea/Vomiting - Labs Labs: 01/01/17 08:10 01/01/17 08:10 PT 12.0 Seconds (9.9-11.8) H 12/30/16 21:39 INR 1.11 (0.93-1.08) H 12/30/16 21:39 APTT 30.6 Seconds (23.7-30.8) 12/30/16 21:39 Attending/Attestation - Attestation I have personally seen and examined this patient.: Yes I have fully participated in the care of the patient.: Yes I have reviewed all pertinent clinical information, including history, physical exam and plan: Yes Notes (Text): 01/01/17 13:39 attending note; patient seen and examined with resident. Patient is a 21-year-old male with a past medical history of Crohn's disease, multiple abdominal surgeries, multiple fistula formation is admitted with fevers and chills and elevated white count. CT abdomen and pelvis showed possible psoas abscess. MRI ordered. We will reviewed with radiologist tomorrow. continue IV Zyvox, meropenem and Flagyl. Case discussed th ID Dr. Vee in detail. Culture is pending. Patient had previous wound culture positive for VRE, enterococcus infections. Patient currently follows up with GI for outpatient Remicade injections. patient also follows up with surgery at [facility]. Chronic opiate dependency. 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 Upon discharge the patient will follow-up with PMD Dr. John Higginbotham. Needs close follow-up with GI/Surgery at [facility]. The diagnosis, treatment plan discussed with patient and patient's father in detail. 01/01/17 13:41
--- NOTE | 2017-01-01 12:22 | CP.PCM.PN ---
Subjective - Date & Time of Evaluation Date of Evaluation: 01/01/17 Time of Evaluation: 07:19 - Subjective Subjective: General Surgery Progress Note for Dr. Mckeon This 21M was seen and examined this AM at bedside. He reports not acute events overnight. Patient reports pain in his back. He denies fevers, chills, chest pain, nausea, vomiting diarrhea. Objective - Vital Signs/Intake and Output Vital Signs (last 24 hours): Temp Pulse Resp BP Pulse Ox 98.3 F 92 H 18 110/60 99 01/01/17 06:00 01/01/17 06:00 01/01/17 06:00 01/01/17 06:00 01/01/17 06:00 Intake and Output: 01/01/17 01/01/17 06:59 18:59 Intake Total 360 Output Total 3450 Balance -3090 - Medications Medications: Current Medications Acetaminophen (Tylenol 325mg Tab) 650 mg PO Q6 PRN PRN Reason: Fever >100.4 F Last Admin: 12/31/16 19:46 Dose: 650 mg Enoxaparin Sodium (Lovenox) 40 mg SC DAILY [facility] PRN Reason: Protocol Last Admin: 01/01/17 09:24 Dose: 40 mg Famotidine (Pepcid) 20 mg PO BID [facility] Last Admin: 01/01/17 09:24 Dose: 20 mg Fluconazole (Diflucan) 200 mg PO DAILY [facility] PRN Reason: Protocol Stop: 01/15/17 10:01 Last Admin: 01/01/17 09:24 Dose: 200 mg Hydromorphone HCl (Dilaudid) 0.5 mg IVP Q6H PRN PRN Reason: Pain, severe (8-10) Last Admin: 01/01/17 09:24 Dose: 0.5 mg Sodium Chloride (Sodium Chloride 0.9%) 1,000 mls @ 100 mls/hr IV .Q10H [facility] Last Admin: 12/31/16 14:52 Dose: 100 mls/hr Meropenem 1g/NS 100mL IVPB (Meropenem 1g/Ns 100ml Ivpb) 1 gm in 100 mls @ 100 mls/hr IVPB Q8 [facility] PRN Reason: Protocol Stop: 01/14/17 22:01 Last Admin: 01/01/17 05:56 Dose: 100 mls/hr Ibuprofen (Motrin Tab) 600 mg PO Q6H PRN PRN Reason: Pain, moderate (4-7) Last Admin: 12/31/16 23:48 Dose: 600 mg Lactobacillus Acidophilus (Bacid Acidophilus) 1 cap PO BID [facility] Last Admin: 01/01/17 09:24 Dose: 1 cap Linezolid (Zyvox) 600 mg PO BID [facility] PRN Reason: Protocol Stop: 01/15/17 10:01 Last Admin: 01/01/17 09:24 Dose: 600 mg Metronidazole (Flagyl) 500 mg PO Q8 [facility] PRN Reason: Protocol Stop: 01/14/17 22:01 Last Admin: 01/01/17 05:46 Dose: 500 mg Morphine Sulfate (Morphine) 4 mg IVP Q6H PRN PRN Reason: Pain, moderate (4-7) Last Admin: 01/01/17 11:43 Dose: 4 mg Ondansetron HCl (Zofran Inj) 4 mg IVP Q6 PRN PRN Reason: Nausea/Vomiting - Labs Labs: 01/01/17 08:10 01/01/17 08:10 PT 12.0 Seconds (9.9-11.8) H 12/30/16 21:39 INR 1.11 (0.93-1.08) H 12/30/16 21:39 APTT 30.6 Seconds (23.7-30.8) 12/30/16 21:39 - Constitutional Appears: Non-toxic, No Acute Distress - Head Exam Head Exam: ATRAUMATIC, NORMOCEPHALIC - Eye Exam Eye Exam: EOMI, Normal appearance - ENT Exam ENT Exam: Mucous Membranes Moist, Normal Exam - Respiratory Exam Respiratory Exam: NORMAL BREATHING PATTERN - Cardiovascular Exam Cardiovascular Exam: +S1, +S2 - GI/Abdominal Exam GI & Abdominal Exam: Soft, Tenderness. absent: Firm, Guarding, Rigid Additional comments: Two lesions draining purulent fluid on the anterior abdomen. Dressings changed this AM. - Back Exam Additional comments: Back lesion on right back draining purulent fluid with feculent flecks. Ostomy bag placed over lesion. - Neurological Exam Neurological Exam: Alert, Awake Assessment and Plan - Assessment and Plan (Free Text) Assessment: This is a 21M with chrones disease, with multiple fistulas who presented with back pain and fever, CT Limited visualization of R flank soft tissue, but possible increase in air in the previous abscess on R psoas/iliac muscles since last CT, uncertain if fluid collections are drainable. F/U MRI Reading Monitor wound output F/U IR Recommendations for drainage Continue medical management per primary team Followup cultures. D/W Dr. Mike Lim PGY-1
--- NOTE | 2017-01-01 17:03 | PN ---
DATE: 01/01/2017 The patient is in bed in no acute distress, nontoxic. Was seen earlier today. He is awake and alert . PHYSICAL EXAMINATION: VITAL SIGNS: Temperature is 98, blood pressure is 110/60, respiratory rate of 18. HEENT: Unremarkable. NECK: Supple. LUNGS: Have decreased breath sounds. HEART: Normal S1, S2. ABDOMEN: Soft, nontender. LABORATORY DATA: Reveals a white count of 15,600, hemoglobin of 8 and platelets of 466. Chemistries reveal the BUN of 6, creatinine of 0.7. Lipase is 24. Microbiology reveals the wound culture is pe nding. The stool for C. diff antigen and toxin are negative for both. Review of the orders reveals the patient to be on fluconazole p.o., p.o. Flagyl, meropenem and p.o. Z yvox. ASSESSMENT AND PLAN: This is a 21-year-old male with extensive Crohn disease and multiple hospitaliz ations, micro-abscesses and fistula formation, abdominal surgery, presenting with sepsis with abdomin al wound infection and questionable psoas abscess on CAT scan of the abdomen. Will ask Dr. Hasmukh sands to review the CAT scan of the abdomen. Currently on Diflucan, Flagyl, Zyvox and meropenem. Await ing for wound culture results pending. Will follow closely with you. Jesse Wang MD cc: [id number] TT: 01/01/2017 17:01:58 Confirmation # [id number] Dictation # [id number]
[2017-01-01] MEDS: Oxycodone/Acetaminophen 5/325 mg Tab PO PRN (18:17)
[2017-01-01] MEDS ORDERED: HYDROmorphone 0.5 mg/0.5 ml ISec IVP STA (22:11)
[2017-01-02] MEDS: Oxycodone/Acetaminophen 5/325 mg Tab PO PRN ×3 (00:31→12:17)
[2017-01-02] MEDS: HYDROmorphone 0.5 mg/0.5 ml ISec IVP PRN ×2 (03:43→09:22)
[2017-01-02] MEDS: Meropenem 1g/NS 100mL IVPB 1 GM/100 ML PIGGYBACK IVPB SCH (05:30)
[2017-01-02 06:32] LABS: ADD MANUAL DIFF? NO
[2017-01-02 06:45] LABS: BASO # 0.01 K/mm3 (0.0-2.0); BASO % 0.1 % (0.0-3.0); EOS # 0.2 (0.0-0.7); EOS % 2.3 % (1.5-5.0); GRAN % 67.7 % (50.0-68.0); HEMATOCRIT 27.4 % (42.0-52.0); LYMPH # 1.2 (1.2-3.4); LYMPH % 14.5 % (22.0-35.0); MEAN CELL VOLUME 73.3 fL (80.0-105.0); MEAN CORPUSCULAR HEMOGLOBIN 22.5 pg (25.0-35.0); MEAN CORPUSCULAR HGB CONC 30.7 g/dl (31.0-37.0); MEAN PLATELET VOLUME 8.3 fl (7.0-11.0); MONO # 1.3 (0.1-0.6); MONO % 15.4 % (1.0-6.0); PLATELET COUNT 508 10^3/uL (120.0-450.0); RED CELL DISTRIBUTION WIDTH 22.6 % (11.5-14.5); WHITE BLOOD COUNT 8.1 10^3/ul (4.5-11.0)
[2017-01-02 07:14] LABS: ALB/GLOB RATIO 0.8 (1.1-1.8); ALKALINE PHOSPHATASE 87 U/L (38-133); ALT/SGPT 30 U/L (7-56); AST/SGOT 23 U/L (15-59); BILIRUBIN,TOTAL 0.2 mg/dL (0.2-1.3); BLOOD UREA NITROGEN 5 mg/dL (7-21); CALCIUM 8.1 mg/dL (8.4-10.5); CARBON DIOXIDE 26 mmol/L (21-33); CHLORIDE 104 mmol/L (95-110); GFR AFRICAN-AMERICAN > 60; GLUCOSE,RANDOM 77 mg/dL (70-110); POTASSIUM 3.9 mmol/L (3.6-5.0); SODIUM 139 mmol/L (132-148); TOTAL PROTEIN 6.5 g/dL (5.8-8.3)
--- NOTE | 2017-01-02 07:41 | CP.PCM.PN ---
Subjective - Date & Time of Evaluation Date of Evaluation: 01/02/17 Time of Evaluation: 07:42 - Subjective Subjective: Dr. Jesse Marcial PGY1 Surgery Note for Dr. Mckeon Pt seen and examined at bedside this AM; denies any overnight events or acute complaints. Denies fevers/chills, CARNES, CP, SOB, abdominal pain, N/V/D, dysuria/ freq/urg or lower extremity pain/swelling. Objective - Vital Signs/Intake and Output Vital Signs (last 24 hours): Temp Pulse Resp BP Pulse Ox 98.3 F 92 H 18 110/60 99 01/01/17 06:00 01/01/17 06:00 01/01/17 06:00 01/01/17 06:00 01/01/17 06:00 Intake and Output: 01/02/17 01/02/17 06:59 18:59 Intake Total 1200 Balance 1200 - Medications Medications: Current Medications Acetaminophen (Tylenol 325mg Tab) 650 mg PO Q6 PRN PRN Reason: Fever >100.4 F Last Admin: 12/31/16 19:46 Dose: 650 mg Enoxaparin Sodium (Lovenox) 40 mg SC DAILY [facility] PRN Reason: Protocol Last Admin: 01/01/17 09:24 Dose: 40 mg Famotidine (Pepcid) 20 mg PO BID [facility] Last Admin: 01/01/17 17:45 Dose: 20 mg Fluconazole (Diflucan) 200 mg PO DAILY [facility] PRN Reason: Protocol Stop: 01/15/17 10:01 Last Admin: 01/01/17 09:24 Dose: 200 mg Hydromorphone HCl (Dilaudid) 0.5 mg IVP Q6H PRN PRN Reason: Pain, severe (8-10) Last Admin: 01/02/17 03:43 Dose: 0.5 mg Sodium Chloride (Sodium Chloride 0.9%) 1,000 mls @ 100 mls/hr IV .Q10H [facility] Last Admin: 12/31/16 14:52 Dose: 100 mls/hr Meropenem 1g/NS 100mL IVPB (Meropenem 1g/Ns 100ml Ivpb) 1 gm in 100 mls @ 100 mls/hr IVPB Q8 [facility] PRN Reason: Protocol Stop: 01/14/17 22:01 Last Admin: 01/02/17 05:30 Dose: 100 mls/hr Ibuprofen (Motrin Tab) 600 mg PO Q6H PRN PRN Reason: Pain, moderate (4-7) Last Admin: 12/31/16 23:48 Dose: 600 mg Lactobacillus Acidophilus (Bacid Acidophilus) 1 cap PO BID [facility] Last Admin: 01/01/17 17:45 Dose: 1 cap Linezolid (Zyvox) 600 mg PO BID [facility] PRN Reason: Protocol Stop: 01/15/17 10:01 Last Admin: 01/01/17 17:45 Dose: 600 mg Metronidazole (Flagyl) 500 mg PO Q8 [facility] PRN Reason: Protocol Stop: 01/14/17 22:01 Last Admin: 01/02/17 05:32 Dose: 500 mg Ondansetron HCl (Zofran Inj) 4 mg IVP Q6 PRN PRN Reason: Nausea/Vomiting Oxycodone/Acetaminophen (Percocet 5/325 Mg Tab) 1 tab PO Q6H PRN PRN Reason: Pain, moderate (4-7) Stop: 01/04/17 17:57 Last Admin: 01/02/17 06:18 Dose: 1 tab - Labs Labs: 01/02/17 06:00 01/02/17 06:00 PT 12.0 Seconds (9.9-11.8) H 12/30/16 21:39 INR 1.11 (0.93-1.08) H 12/30/16 21:39 APTT 30.6 Seconds (23.7-30.8) 12/30/16 21:39 - Constitutional Appears: Well - Head Exam Additional comments: Head Exam: ATRAUMATIC, NORMOCEPHALIC - Eye Exam Eye Exam: EOMI, Normal appearance - ENT Exam ENT Exam: Mucous Membranes Moist, Normal Exam - Respiratory Exam Respiratory Exam: NORMAL BREATHING PATTERN - Cardiovascular Exam Cardiovascular Exam: +S1, +S2 - GI/Abdominal Exam GI & Abdominal Exam: Soft, Tenderness. absent: Firm, Guarding, Rigid Additional comments: Two lesions draining purulent fluid on the anterior abdomen. - Back Exam Additional comments: right back draining purulent fluid with feculent flecks. Ostomy bag in place with 50cc of purulent drainage - Psychiatric Exam Psychiatric exam: Normal Affect - Skin Skin Exam: Warm Assessment and Plan - Assessment and Plan (Free Text) Assessment: This is a 21M with Crohns, with multiple fistulas who presented with back pain and fever, CT Limited visualization of R flank soft tissue, but possible increase in air in the previous abscess on R psoas/iliac muscles since last CT F/U MRI Reading Monitor wound output Continue medical management per primary team Followup cultures. D/W Dr. Mckeon As per surgical interventions, there does not seem to be any surgical intervention needed at this time. Thank you for this interesting consult, please feel free to consult PRN Dr. Jesse Marcial PGY1 Surgery Service
[2017-01-02] MEDS: Lactobacillus Acidophilus 500 MU Cap PO SCH (09:22)
[2017-01-02 09:23] VITALS: BP 132/74; PULSE 88; TEMP 96.9; O2SAT 100
[2017-01-02] MEDS: Enoxaparin 40 mg Syringe SC SCH (09:23)
--- NOTE | 2017-01-02 12:35 | MRI ---
PROCEDURE: MRI Abdomen without contrast HISTORY: Abdominal pain COMPARISON: CT scan 12/30/2016 TECHNIQUE: Multisequence, multiplanar MR images of the abdomen without gadolinium contrast enhancement. FINDINGS: LIVER: Unremarkable. GALLBLADDER: Unremarkable. SPLEEN: Unremarkable. ADRENALS: Unremarkable. KIDNEYS: Unremarkable. PANCREAS: Unremarkable. AORTA: No aneurysm. ASCITES: None. PERITONEUM: Unremarkable. LYMPH NODES: Unremarkable. OTHER FINDINGS: There is edema and swelling in the right psoas and iliacus muscle. This is similar in appearance to the recent CT. Findings are consistent with inflammation or infection. The gas collections seen on CT are more difficult to appreciate on MRI. The report concurs with the preliminary [facility] report IMPRESSION: Edema and swelling of the right psoas and iliacus muscles consistent with inflammation or infection. The remainder the study is unremarkable
--- NOTE | 2017-01-02 12:38 | CP.PCM.DIS ---
<Carmen Valadez - Last Filed: 01/02/17 12:35> Provider - Provider Date of Admission: 12/31/16 01:50 Attending physician: José Ayoub MD Consults: GI: Dr. Sanders Surgery: Dr. Andino ID; Dr. Luciano Time Spent in preparation of Discharge (in minutes): 45 Diagnosis - Discharge Diagnosis (1) Vesicocutaneous fistula Status: Chronic (2) Crohn's disease Status: Chronic (3) Intra-abdominal abscess Status: Chronic Hospital Course - Lab Results Lab Results: Micro Results 01/01/17 08:10 Blood-Venous Blood Culture - Preliminary NO GROWTH AFTER 24 HOURS 01/01/17 07:50 Blood-Venous Blood Culture - Preliminary NO GROWTH AFTER 24 HOURS 12/31/16 15:00 Stool C. difficile Antigen & Toxin A,B (M - Final Most Recent Lab Values WBC 8.1 10^3/ul (4.5-11.0) D 01/02/17 06:00 RBC 3.74 10^6/uL (3.5-6.1) 01/02/17 06:00 Hgb 8.4 gm/dL (14.0-18.0) L 01/02/17 06:00 Hct 27.4 % (42.0-52.0) L 01/02/17 06:00 MCV 73.3 fL (80.0-105.0) L 01/02/17 06:00 MCH 22.5 pg (25.0-35.0) L 01/02/17 06:00 MCHC 30.7 g/dl (31.0-37.0) L 01/02/17 06:00 RDW 22.6 % (11.5-14.5) H 01/02/17 06:00 Plt Count 508 10^3/uL (120.0-450.0) H 01/02/17 06:00 MPV 8.3 fl (7.0-11.0) 01/02/17 06:00 Gran % 67.7 % (50.0-68.0) 01/02/17 06:00 Lymph % (Auto) 14.5 % (22.0-35.0) L 01/02/17 06:00 Saline % (Auto) 15.4 % (1.0-6.0) H 01/02/17 06:00 Eos % (Auto) 2.3 % (1.5-5.0) 01/02/17 06:00 Baso % (Auto) 0.1 % (0.0-3.0) 01/02/17 06:00 Gran # 5.50 (1.4-6.5) 01/02/17 06:00 Lymph # 1.2 (1.2-3.4) 01/02/17 06:00 Saline # 1.3 (0.1-0.6) H 01/02/17 06:00 Eos # 0.2 (0.0-0.7) 01/02/17 06:00 Baso # 0.01 K/mm3 (0.0-2.0) 01/02/17 06:00 PT 12.0 Seconds (9.9-11.8) H 12/30/16 21:39 INR 1.11 (0.93-1.08) H 12/30/16 21:39 APTT 30.6 Seconds (23.7-30.8) 12/30/16 21:39 Sodium 139 mmol/L (132-148) 01/02/17 06:00 Potassium 3.9 mmol/L (3.6-5.0) 01/02/17 06:00 Chloride 104 mmol/L (95-110) 01/02/17 06:00 Carbon Dioxide 26 mmol/L (21-33) 01/02/17 06:00 Anion Gap 13 (10-20) 01/02/17 06:00 BUN 5 mg/dL (7-21) L 01/02/17 06:00 Creatinine 0.7 mg/dL (0.5-1.4) 01/02/17 06:00 Est GFR ( Amer) > 60 01/02/17 06:00 Est GFR (Non-Af Amer) > 60 01/02/17 06:00 Random Glucose 77 mg/dL (70-110) 01/02/17 06:00 Calcium 8.1 mg/dL (8.4-10.5) L 01/02/17 06:00 Phosphorus 2.7 mg/dL (2.5-4.5) 12/31/16 09:02 Magnesium 2.1 mg/dL (1.7-2.2) 12/31/16 09:02 Total Bilirubin 0.2 mg/dL (0.2-1.3) 01/02/17 06:00 AST 23 U/L (15-59) 01/02/17 06:00 ALT 30 U/L (7-56) 01/02/17 06:00 Alkaline Phosphatase 87 U/L (38-133) 01/02/17 06:00 Total Protein 6.5 g/dL (5.8-8.3) 01/02/17 06:00 Albumin 2.9 g/dL (3.0-4.8) L 01/02/17 06:00 Globulin 3.6 gm/dL 01/02/17 06:00 Albumin/Globulin Ratio 0.8 (1.1-1.8) L 01/02/17 06:00 Lipase 24 U/L (23-300) 12/30/16 21:39 Urine Opiates Screen Positive (NEGATIVE) H 12/31/16 16:40 Urine Methadone Screen Negative (NEGATIVE) 12/31/16 16:40 Ur Barbiturates Screen Negative (NEGATIVE) 12/31/16 16:40 Ur Phencyclidine Scrn Negative (NEGATIVE) 12/31/16 16:40 Ur Amphetamines Screen Negative (NEGATIVE) 12/31/16 16:40 U Benzodiazepines Scrn Negative (NEGATIVE) 12/31/16 16:40 U Oth Cocaine Metabols Negative (NEGATIVE) 12/31/16 16:40 U Cannabinoids Screen Negative (NEGATIVE) 12/31/16 16:40 - Hospital Course Hospital Course: 21 M w/PMH sig for Crohn's and anemia admitted for abdominal pain x 1 wk. Pain is sharp/stabbing, right sided with radiation to back, moderate to severe intensity, worsened over past week. Alleviated by certain positions, Dilaudid, aggravated by certain foods/positions. Admits to diarrhea daily, subjective fevers, cough, headache. Denies N/V, chills, CP, palpitations , sore throat, SOB, rhinorrhea, hearing changes, vision changes, constipation, wt loss. Note: Pt has been seen in ED in [facility] multiple times in past for similar- [place] [facility] switched PMDs- attempting to set up outpatient pain mgmt Upon admission, CT of abd/pelvis showed interval increase in air with right psoas and right flank abscess vs. phlegmon. ID was consulted and patient was started on antibiotics zyvox, meropenem, flagyl and diflucan. Wound cultures were sent prior to starting antibiotics and grew klebsiella, citrobacter freundii and yeast species. GI was also consulted and recommended to pause the remicade treatment once patient's acute Crohn attack has resolved. Surgery was consulted and recommended no surgical intervention at this time. MRI of abdomen /pelvis was ordered for better visualization of abdomen and showed edema and swelling of right psoas and iliacus muscles consistent with inflammation. Pt is to follow up with PMD, Dr. Brito upon discharge. Pt is to follow up with general internal medicine doctor, Dr. Rodgers upon discharge. Follow up with Colorectal surgery per DR. Delgado [facility]. FOLLOW UP WITH PAIN MANAGEMENT FOR CHRONIC OPIATE USE. continue flagyl. Patient left AMA but was given prescription for Flagyl and given discharge instructions. Please see MAR for full details. - Date & Time of H&P Date of H&P: 01/02/17 Time of H&P: 12:37 Discharge Exam - Head Exam Head Exam: ATRAUMATIC, NORMOCEPHALIC - Eye Exam Eye Exam: EOMI Pupil Exam: PERRL - ENT Exam ENT Exam: Mucous Membranes Moist - Respiratory Exam Respiratory Exam: Clear to PA & Lateral, NORMAL BREATHING PATTERN. absent: Rales, Rhonchi, Wheezes - Cardiovascular Exam Cardiovascular Exam: REGULAR RHYTHM, +S1, +S2. absent: Diastolic murmur, Gallop , Rubs, Systolic Murmur - GI/Abdominal Exam GI & Abdominal Exam: Normal Bowel Sounds, Soft, Tenderness. absent: Unremarkable Additional comments: draining fistulas on right quadrants and low right back - Extremities Exam Additional comments: no edema or tenderness - Neurological Exam Neurological exam: Alert, Oriented x3 - Psychiatric Exam Psychiatric exam: Normal Affect, Normal Mood - Skin Skin Exam: Dry, Intact, Normal Color, Warm Discharge Plan - Discharge Medications Prescriptions: Metronidazole [Flagyl] 500 mg PO Q8 #30 tablet - Follow Up Plan Condition: FAIR Disposition: AGAINST MEDICAL ADVICE Instructions: Crohn Disease (DC), Colostomy Creation (DC) Additional Instructions: Pt is to follow up with PMDDr. Brito upon discharge. Pt is to follow up with general internal medicine doctor, Dr. Rodgers upon discharge. Follow up with Colorectal surgery per DR. Delgado [facility]. FOLLOW UP WITH PAIN MANAGEMENT FOR CHRONIC OPIATE USE. continue flagyl. <José Ayoub - Last Filed: 01/02/17 14:21> Provider - Provider Date of Admission: 12/31/16 01:50 Attending physician: José Ayoub MD Hospital Course - Lab Results Lab Results: Micro Results 12/31/16 15:01 Stool Stool Culture - Final NO SALMONELLA, SHIGELLA OR CAMPYLOBACTER ISOLATED. 01/01/17 08:10 Blood-Venous Blood Culture - Preliminary NO GROWTH AFTER 24 HOURS 01/01/17 07:50 Blood-Venous Blood Culture - Preliminary NO GROWTH AFTER 24 HOURS 12/31/16 15:00 Stool C. difficile Antigen & Toxin A,B (M - Final Most Recent Lab Values WBC 8.1 10^3/ul (4.5-11.0) D 01/02/17 06:00 RBC 3.74 10^6/uL (3.5-6.1) 01/02/17 06:00 Hgb 8.4 gm/dL (14.0-18.0) L 01/02/17 06:00 Hct 27.4 % (42.0-52.0) L 01/02/17 06:00 MCV 73.3 fL (80.0-105.0) L 01/02/17 06:00 MCH 22.5 pg (25.0-35.0) L 01/02/17 06:00 MCHC 30.7 g/dl (31.0-37.0) L 01/02/17 06:00 RDW 22.6 % (11.5-14.5) H 01/02/17 06:00 Plt Count 508 10^3/uL (120.0-450.0) H 01/02/17 06:00 MPV 8.3 fl (7.0-11.0) 01/02/17 06:00 Gran % 67.7 % (50.0-68.0) 01/02/17 06:00 Lymph % (Auto) 14.5 % (22.0-35.0) L 01/02/17 06:00 Saline % (Auto) 15.4 % (1.0-6.0) H 01/02/17 06:00 Eos % (Auto) 2.3 % (1.5-5.0) 01/02/17 06:00 Baso % (Auto) 0.1 % (0.0-3.0) 01/02/17 06:00 Gran # 5.50 (1.4-6.5) 01/02/17 06:00 Lymph # 1.2 (1.2-3.4) 01/02/17 06:00 Saline # 1.3 (0.1-0.6) H 01/02/17 06:00 Eos # 0.2 (0.0-0.7) 01/02/17 06:00 Baso # 0.01 K/mm3 (0.0-2.0) 01/02/17 06:00 PT 12.0 Seconds (9.9-11.8) H 12/30/16 21:39 INR 1.11 (0.93-1.08) H 12/30/16 21:39 APTT 30.6 Seconds (23.7-30.8) 12/30/16 21:39 Sodium 139 mmol/L (132-148) 01/02/17 06:00 Potassium 3.9 mmol/L (3.6-5.0) 01/02/17 06:00 Chloride 104 mmol/L (95-110) 01/02/17 06:00 Carbon Dioxide 26 mmol/L (21-33) 01/02/17 06:00 Anion Gap 13 (10-20) 01/02/17 06:00 BUN 5 mg/dL (7-21) L 01/02/17 06:00 Creatinine 0.7 mg/dL (0.5-1.4) 01/02/17 06:00 Est GFR ( Amer) > 60 01/02/17 06:00 Est GFR (Non-Af Amer) > 60 01/02/17 06:00 Random Glucose 77 mg/dL (70-110) 01/02/17 06:00 Calcium 8.1 mg/dL (8.4-10.5) L 01/02/17 06:00 Phosphorus 2.7 mg/dL (2.5-4.5) 12/31/16 09:02 Magnesium 2.1 mg/dL (1.7-2.2) 12/31/16 09:02 Total Bilirubin 0.2 mg/dL (0.2-1.3) 01/02/17 06:00 AST 23 U/L (15-59) 01/02/17 06:00 ALT 30 U/L (7-56) 01/02/17 06:00 Alkaline Phosphatase 87 U/L (38-133) 01/02/17 06:00 Total Protein 6.5 g/dL (5.8-8.3) 01/02/17 06:00 Albumin 2.9 g/dL (3.0-4.8) L 01/02/17 06:00 Globulin 3.6 gm/dL 01/02/17 06:00 Albumin/Globulin Ratio 0.8 (1.1-1.8) L 01/02/17 06:00 Lipase 24 U/L (23-300) 12/30/16 21:39 Urine Opiates Screen Positive (NEGATIVE) H 12/31/16 16:40 Urine Methadone Screen Negative (NEGATIVE) 12/31/16 16:40 Ur Barbiturates Screen Negative (NEGATIVE) 12/31/16 16:40 Ur Phencyclidine Scrn Negative (NEGATIVE) 12/31/16 16:40 Ur Amphetamines Screen Negative (NEGATIVE) 12/31/16 16:40 U Benzodiazepines Scrn Negative (NEGATIVE) 12/31/16 16:40 U Oth Cocaine Metabols Negative (NEGATIVE) 12/31/16 16:40 U Cannabinoids Screen Negative (NEGATIVE) 12/31/16 16:40 Attending/Attestation - Attestation I have personally seen and examined this patient.: Yes I have fully participated in the care of the patient.: Yes I have reviewed all pertinent clinical information, including history, physical exam and plan: Yes Notes (Text): 01/02/17 14:12 attending note; patient seen and examined with resident. Patient is a 21-year-old male with a past medical history of Crohn's disease, multiple abdominal surgeries, multiple fistula formation is admitted with fevers and chills and elevated white count. CT abdomen and pelvis showed possible psoas abscess. MRI showed edema and swelling of the psoas and iliac is muscle. CT reviewed with intervention radiologist Dr. Hasmukh Farmer today. Small amount of psoas abscess suspected. Patient refused drainage by IR. the patient wanted [place] follow[place] with [place] [facility] Case discussed with Dora Celaya at DR. Delgado's office. Ct scan results faxed. Treated with IV Zyvox, meropenem and Flagyl. Case discussed th ID Dr. Vee in detail. Culture grew Klebsiella and citrobacter. Will be discharged home with po Flagyl. Patient currently follows up with GI for outpatient Remicade injections. Chronic opiate dependency. Patient gets opiate prescription from multiple physicians/ pharmacies. Strongly advised to follow-up with pain management. Advised to taper and discontinue opiates. 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 Upon discharge the patient will follow-up with PMD Dr. John Higginbotham. Needs close follow-up with GI/Surgery at [facility]. Patient is strongly advised to follow-up with colorectal surgery at [facility]. The diagnosis, treatment plan discussed with patient in detail. While preparing for discharge instructions,making CD copy of CAT scan and MRI results the patient signed AGAINST MEDICAL ADVICE. Diagnosis; Crohn's disease Chronic fistula Anemia Opiate dependency small psoas abscess versus inflammation Noncompliance with follow-up 01/02/17 14:20
--- NOTE | 2017-01-02 12:59 | PN ---
DATE: 01/01/2017 This patient was seen and evaluated ____. The patient has now opened up the discharge from ____ one on the side and one also in the midline area. There is ____ on the right flank area ____ more discom fort. He feels a little more comfortable now. PHYSICAL EXAMINATION: VITAL SIGNS: Temperature is 98.3, pulse 92, blood pressure is 110/60. HEENT: Atraumatic, anicteric. NECK: Supple. HEART: S1, S2 regular. LUNGS: Bilateral air entry present. ____ multiple ____ fistulas ____ healed. There are 2 areas which opened up more, draining ____ right flank area ____ discharge is more copious ____ is also decreased. There is also ____ covered with d ressing. LABORATORY REVIEW: Hemoglobin 8.1, hematocrit 26.7, WBCs 15.6, platelets 566. BUN 6, creatinine is 0.7. The wound showed ____. IMPRESSION: This is a 21-year-old patient with Crohn's disease ____ enterocutaneous fistula, present ed with ____ drainage. ____ the patient had an MRI of the abdomen done. May benefit from ____ pelvi s also to correlate. Appears to be fistulous tract leading ____. ____ is still pending. Would recommend continue the antibiotics. Will review with the radiologist regarding the MRI. May r equest MRI of the pelvis also after the review with the radiologist. The patient is being followed b layne Wyatt. ____ at the [facility]. The patient needs ____ product scientist which he pre fers. The plan is to treat the acute abscess and the infective process presently. Thank you very much for allowing us to participate in the care of the patient. Teofilo Sanders MD cc: [id number] TT: 01/02/2017 09:06:41 Confirmation # [id number] Dictation # [id number]
== END 2017-01-02 12:40 | disposition left against medical advice (07) | DRG 552 ==
LOC: ED 20:02 → ERH 12-31 01:50 → 3RNO 12-31 03:11
PROVIDERS: ADMIT Hospitalist; ATTEND Internal Medicine
DX: K50.913 Crohn's disease, unspecified, with fistula (principal); K50.914 Crohn's disease, unspecified, with abscess; T81.4XXA Infection following a procedure, initial encounter; A41.9 Sepsis, unspecified organism; K68.12 Psoas muscle abscess; F11.20 Opioid dependence, uncomplicated; D63.8 Anemia in other chronic diseases classified elsewhere; F41.9 Anxiety disorder, unspecified; K21.9 Gastro-esophageal reflux disease without esophagitis; Z91.19 Patient's noncompliance with other medical treatment and regimen; Y83.8 Other surgical procedures as the cause of abnormal reaction of the patient, or of later complication, without mention of misadventure at the time of the procedure; Y92.098 Other place in other non-institutional residence as the place of occurrence of the external cause; Z87.01 Personal history of pneumonia (recurrent)

== ENCOUNTER 2017-01-20 09:50 | Emergency (ER) | payer MEDICAID ==
[2017-01-20 10:00] VITALS: BP 122/77; PULSE 100; RESP 18; TEMP 99.1; O2SAT 100
[2017-01-20 10:03] VITALS: BMI 17.4
--- NOTE | 2017-01-20 10:31 | ED PDOC ---
Arrival/HPI - General Chief Complaint: Abdominal Pain Time Seen by Provider: 01/20/17 10:02 Historian: Patient - History of Present Illness Narrative History of Present Illness (Text): 01/20/17 10:15 Ramirez Beavers is a 21 year old male, whose past medical history includes Crohn's Disease and fistulas, who presents to the emergency department complaining of constant right-sided abdominal pain for a a few days. Patient states that he has been taking home antibiotics through a pic line but it has brought no relief and indicates that there is still drainage from his wounds. Patient says he feels subjectively feverish but at present, is not febrile. Patient endorses that he did not take any pyretics within the past day and denies taking any pain medications at home. Patient notes that he had a recent previous hospitalization for pneumonia. Patient denies any other complaint at this time. PMD: Dr. Ward Time/Duration: < week Symptom Onset: Gradual Symptom Course: Unchanged Severity Level: Mild Activities at Onset: Rest Context: Home Past Medical History - Provider Review Nursing Documentation Reviewed: Yes - Infectious Disease Hx of Infectious Diseases: None - Reproductive Currently : No - Cardiac Hx Cardiac Disorders: No - Pulmonary Hx Respiratory Disorders: Yes Hx Pneumonia: Yes - Neurological Hx Neurological Disorder: No - HEENT Hx HEENT Disorder: No - Renal Hx Renal Disorder: No - Endocrine/Metabolic Hx Endocrine Disorders: No - Hematological/Oncological Hx Blood Disorders: Yes Hx Anemia: Yes - Integumentary Hx Dermatological Disorder: Yes - Musculoskeletal/Rheumatological Hx Musculoskeletal Disorders: No Hx Falls: No - Gastrointestinal Hx Gastrointestinal Disorders: Yes Hx Crohn's Disease: Yes - Genitourinary/Gynecological Hx Genitourinary Disorders: Yes Hx Urinary Tract Infection: Yes - Psychiatric Hx Psychophysiologic Disorder: Yes Hx Anxiety: Yes Hx Substance Use: No - Surgical History Other/Comment: Colon resection - Anesthesia Hx Anesthesia: Yes Hx Anesthesia Reactions: No Hx Malignant Hyperthermia: No - Suicidal Assessment Feels Threatened In Home Enviroment: No Family/Social History - Physician Review Nursing Documentation Reviewed: Yes Family/Social History: No Known Family HX Smoking Status: Current Some Days Smoker Hx Alcohol Use: No Hx Substance Use: No Allergies/Home Meds Allergies/Adverse Reactions: Allergies diphenhydramine [From Benadryl] Allergy (Verified 12/30/16 20:20) RASH FISH Allergy (Verified 12/30/16 20:19) RASH ketorolac [From Toradol] Allergy (Verified 12/30/16 20:19) RASH shellfish derived Adverse Reaction (Verified 12/30/16 20:19) ANGIOEDEMA Home Medications: Home Meds Medication Instructions Recorded Confirmed DAPTOmycin [Cubicin] 500 mg IV DAILY 01/20/17 01/20/17 Ertapenem 1gm in NS 50ml [Invanz] 1 gm IV DAILY 01/20/17 01/20/17 Heparin Sodium,Porcine/Pf [Heparin 10 units IV DAILY 01/20/17 01/20/17 5 Unit/5 ml (1/ml) Syr] Review of Systems - Physician Review All systems were reviewed & negative as marked: Yes - Review of Systems Constitutional: Fevers. absent: Night Sweats Eyes: absent: Vision Changes ENT: absent: Hearing Changes Respiratory: absent: SOB Cardiovascular: absent: Chest Pain Gastrointestinal: Abdominal Pain (Right-sided abdominal pain) Genitourinary Male: absent: Urinary Output Changes Musculoskeletal: absent: Back Pain, Neck Pain Skin: absent: Rash, Pruritis Neurological: absent: Headache, Dizziness Endocrine: absent: Polyuria Hemo/Lymphatic: absent: Easy Bleeding Psychiatric: absent: Depression Physical Exam - Physical Exam Narrative Physical Exam (Text): Constitutional: No acute distress. Head: Normocephalic. Atraumatic. Eyes: PERRL. ENT: Moist mucous membranes. Respiratory: Clear to auscultation bilaterally. GI: Multiple open draining wounds to right sided abdomen. Right-sided diffuse abdominal tenderness with voluntary guarding. No left sided tenderness Musculoskeletal: No tenderness or swelling of extremities. Skin: No rash. Neurologic: Alert, no focal deficit. Vital Signs Reviewed: Yes Vital Signs Temp Pulse Resp BP Pulse Ox 01/20/17 09:59 99.1 F 100 H 18 122/77 100 Temperature: Afebrile Blood Pressure: Normal Pulse: Tachycardic Respiratory Rate: Normal Appearance: Positive for: Well-Appearing, Non-Toxic, Comfortable Pain Distress: None Mental Status: Positive for: Alert and Oriented X 3 Medical Decision Making ED Course and Treatment: 01/20/17 10:20 Drug registry checked, patient filled 10 mg Oxycodone 30 tablets 3 days ago, and 30 tablets of Percocets 10 days prior to that. 72 listed prescriptions from 28 different prescribers. 01/20/17 11:09 I discussed drug prescription history with patient. He then told me that he is taking those medications at home but that nothing is working and that he requires IV narcotics. I informed him that his prescription history is concerning and that while I could definitely treat him with antibiotics, repeat imaging, assess his lab work for worsening infection, that he would not be receiving any narcotic medication. He perseverated in saying that antibiotics alone will not work and that he must have IV narcotics with them to help him with his pain and "whipjaws" and that he just wants to go home and relax and just try to make it to his first appointment with pain management in 3 days. He then asked if he could at least have cough medication to help him with his pneumonia. I informed him that I could provide him cough medication but not a controlled substance, to which he was very upset stating that only the cough medication with narcotics work for him. He asked me what I have against him and stated this was personal, to which I replied that it was not and that any patient with this prescription history is at high risk of narcotic abuse, and that I would not be able to provide narcotic medication to him. I continued to offer him any other pain medication, any cough medication, antibiotics, imaging , and labs, but he refused all these if he was not also getting narcotic medication. The patient then walked out of the ER without his papers. - Scribe Statement The provider has reviewed the documentation as recorded by the James Temple Provider Scribe Attestation: All medical record entries made by the James were at my direction and personally dictated by me. I have reviewed the chart and agree that the record accurately reflects my personal performance of the history, physical exam, medical decision making, and the department course for this patient. I have also personally directed, reviewed, and agree with the discharge instructions and disposition. Disposition/Present on Arrival - Present on Arrival Any Indicators Present on Arrival: No History of DVT/PE: No History of Uncontrolled Diabetes: No Urinary Catheter: No History of Decub. Ulcer: No History Surgical Site Infection Following: None - Disposition Have Diagnosis and Disposition been Completed?: Yes Diagnosis: Crohn's disease Disposition: ELOPEMENT - ER ONLY Disposition Time: 10:57 Condition: STABLE Discharge Instructions (ExitCare): Against Medical Advice (ED), Crohn Disease ( ED) Referrals: Brendan Ward MD [Primary Care Provider] - Follow up with primary
== END 2017-01-20 11:09 | disposition left against medical advice (07) ==
LOC: ED 09:50
DX: K50.90 Crohn's disease, unspecified, without complications (principal)

== ENCOUNTER 2017-02-16 07:59 | Inpatient (IN) | payer MEDICAID ==
[2017-02-16 07:59] VITALS: BMI 17.4
[2017-02-16] MEDS ORDERED: Sodium Chloride 0.9% 1,000 ML IV STA (08:27)
[2017-02-16] MEDS ORDERED: Morphine 4 mg/ml ISec IVP STA ×3 (08:27→13:42)
[2017-02-16] MEDS ORDERED: Iohexol 240 (50 ml) ONE (08:37)
--- NOTE | 2017-02-16 08:43 | ED PDOC ---
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 Patient reports his pain has worsened over the past 3 days. He notes chills, cough and chronic non-bloody diarrhea. Patient denies any fever, nausea, vomiting, chest pain, shortness of breath or any other complaints. PMD: Dr. Brito Stave Cutter: Dr. Patrick Time/Duration: Other (3 days) Symptom Course: Worsening Quality: Other Context: Home Past Medical History - Provider Review Nursing Documentation Reviewed: Yes - Infectious Disease Hx of Infectious Diseases: None - Reproductive Currently : No - Cardiac Hx Cardiac Disorders: No - Pulmonary Hx Respiratory Disorders: Yes Hx Pneumonia: Yes - Neurological Hx Neurological Disorder: No - HEENT Hx HEENT Disorder: No - Renal Hx Renal Disorder: No - Endocrine/Metabolic Hx Endocrine Disorders: No - Hematological/Oncological Hx Blood Disorders: Yes Hx Anemia: Yes - Integumentary Hx Dermatological Disorder: Yes - Musculoskeletal/Rheumatological Hx Musculoskeletal Disorders: No Hx Falls: No - Gastrointestinal Hx Gastrointestinal Disorders: Yes Hx Crohn's Disease: Yes - Genitourinary/Gynecological Hx Genitourinary Disorders: Yes Hx Urinary Tract Infection: Yes - Psychiatric Hx Psychophysiologic Disorder: Yes Hx Anxiety: Yes Hx Substance Use: No - Surgical History Other/Comment: Colon resection - Anesthesia Hx Anesthesia: Yes Hx Anesthesia Reactions: No Hx Malignant Hyperthermia: No - Suicidal Assessment Feels Threatened In Home Enviroment: No Family/Social History - Physician Review Nursing Documentation Reviewed: Yes Family/Social History: No Known Family HX Smoking Status: Current Some Days Smoker Hx Alcohol Use: No Hx Substance Use: No Allergies/Home Meds Allergies/Adverse Reactions: Allergies diphenhydramine [From Benadryl] Allergy (Verified 02/16/17 08:28) RASH FISH Allergy (Verified 02/16/17 08:28) RASH ketorolac [From Toradol] Allergy (Verified 02/16/17 08:28) RASH shellfish derived Adverse Reaction (Verified 02/16/17 08:28) ANGIOEDEMA Home Medications: Home Meds Medication Instructions Recorded Confirmed DAPTOmycin [Cubicin] 500 mg IV DAILY 01/20/17 01/20/17 Ertapenem 1gm in NS 50ml [Invanz] 1 gm IV DAILY 01/20/17 01/20/17 Heparin Sodium,Porcine/Pf [Heparin 10 units IV DAILY 01/20/17 01/20/17 5 Unit/5 ml (1/ml) Syr] Review of Systems - Physician Review All systems were reviewed & negative as marked: Yes - Review of Systems Constitutional: Night Sweats. absent: Fevers Respiratory: Cough. absent: SOB Cardiovascular: absent: Chest Pain Gastrointestinal: Abdominal Pain, Diarrhea. absent: Nausea, Vomiting Physical Exam Vital Signs Reviewed: Yes Vital Signs Temp Pulse Resp BP Pulse Ox 02/16/17 14:00 81 17 108/66 99 02/16/17 12:09 73 16 100/45 L 100 02/16/17 10:00 78 17 110/60 100 02/16/17 08:33 98.1 F 74 17 133/65 100 Temperature: Afebrile Blood Pressure: Normal Pulse: Regular Respiratory Rate: Normal Appearance: Positive for: Well-Appearing, Non-Toxic, Comfortable Pain Distress: None Mental Status: Positive for: Alert and Oriented X 3 - Systems Exam Head: Present: Atraumatic, Normocephalic Pupils: Present: PERRL Extroacular Muscles: Present: EOMI Conjunctiva: Present: Normal Mouth: Present: Moist Mucous Membranes Neck: Present: Normal Range of Motion Respiratory/Chest: Present: Clear to Auscultation, Good Air Exchange. No: Respiratory Distress, Accessory Muscle Use Cardiovascular: Present: Regular Rate and Rhythm, Normal S1, S2. No: Murmurs Abdomen: Present: Tenderness (Right sided abdominal tenderness to palpation ), Normal Bowel Sounds, Other (Abdominal wounds with trace yellow pus, no foul odor , erythema or warmth). No: Distention, Peritoneal Signs Back: Present: Normal Inspection Upper Extremity: Present: Normal Inspection. No: Cyanosis, Edema Lower Extremity: Present: Normal Inspection. No: Edema Neurological: Present: GCS=15, CN II-XII Intact, Speech Normal Skin: Present: Warm, Dry, Normal Color. No: Rashes Psychiatric: Present: Alert, Oriented x 3, Normal Insight, Normal Concentration Medical Decision Making ED Course and Treatment: 02/16/17 08:26 Impression: A 21 year old male with chronic right upper abdominal pain, worse than usual. Patient notes chills, cough and chronic non-bloody diarrhea. Differential Diagnosis included but are not limited to: Abdominal pain with Crohn's rule out abscess Plan: -- Abdominal CT -- Labs -- Pepcid, Morphine, Zofran and IV fluids -- Reassess and disposition Progress Notes: 02/16/17 09:20 Labs reviewed, hemoglobin and platelets at baseline. Report Date : 02/16/2017 13:21:42 PROCEDURE: CT Abdomen and Pelvis with contrast Dictator : Maria G Raphael MD IMPRESSION: 1. Findings are concerning for 2.4 x 3.4 cm abscess in the right lateral abdominal wall with associated edema and myositis. 2. Chest also noted is edema and fluid collection in the right iliacus and psoas muscles with ill-defined enhancement which may represent phlegmon or abscess. 3. Additional comments as described in findings. ADDENDUM: This addendum is in regards to additional findings: 1. Findings are concerning for 2.4 x 3.4 cm abscess in the right lateral abdominal wall with associated edema and myositis. 2. Interval worsening of edema and fluid collection in the right iliacus and psoas muscles with ill-defined enhancement which may represent phlegmon or abscess. 3. Additional comments as described above. Important findings were discussed with Dr. Herrera in the ER on 02/16/2017 at 21 :30 p.m. [ Addendum Report Added by Maria G Raphael MD at 02/16/2017 13:35:30 ] 02/16/17 14:44 Vanco and Zosyn IV ordered. Case discussed with radiologist DR. Raphael who states there are worsening findings of fluid collections compared to previous CT. Case discussed with Dr. Ayoub, hospitalist who will place patient under her service. - Lab Interpretations Lab Results: 02/16/17 08:55 02/16/17 08:55 Lab Results 02/16/17 08:55: Sodium 141, Potassium 3.5 L, Chloride 105, Carbon Dioxide 27, Anion Gap 13, BUN 6 L, Creatinine 0.8, Est GFR ( Amer) > 60, Est GFR (Non -Af Amer) > 60, Random Glucose 99, Calcium 8.7, Total Bilirubin 0.1 L, AST 52, ALT 40, Alkaline Phosphatase 94, Total Protein 7.1, Albumin 3.4, Globulin 3.7, Albumin/Globulin Ratio 0.9 L, Lipase 86 02/16/17 08:55: PT 12.0 H, INR 1.11 H, APTT 24.7 02/16/17 08:55: WBC 9.4, RBC 3.56, Hgb 8.2 L, Hct 26.4 L, MCV 74.2 L, MCH 23.0 L , MCHC 31.1, RDW 21.4 H, Plt Count 579 H, MPV 7.6, Gran % 85.2 H, Lymph % (Auto ) 8.8 L, Smyth % (Auto) 4.7, Eos % (Auto) 1.1 L, Baso % (Auto) 0.2, Gran # 8.01 H , Lymph # 0.8 L, Smyth # 0.4, Eos # 0.1, Baso # 0.02 I have reviewed the lab results: Yes - RAD Interpretation Radiology Orders: 02/16/17 08:27 ABD PELVIS PO & IV CONTRAST [CT] Stat - Medication Orders Current Medication Orders: Sodium Chloride (Sodium Chloride 0.9%) 1,000 mls @ 100 mls/hr IV .Q10H STA Stop: 02/16/17 18:26 Last Admin: 02/16/17 09:01 Dose: 100 mls/hr Vancomycin HCl (Vancomycin 1gm) 1 gm in 250 mls @ 167 mls/hr IVPB STAT STA PRN Reason: Protocol Stop: 02/16/17 15:16 Last Admin: 02/16/17 14:40 Dose: 167 mls/hr Discontinued Medications Famotidine (Pepcid) 20 mg IVP STAT STA Stop: 02/16/17 08:28 Last Admin: 02/16/17 09:02 Dose: 20 mg Piperacillin Sod/Tazobactam Sod (Zosyn 4.5 Gm In Ns 100ml) 4.5 gm in 100 mls @ 200 mls/hr IVPB STAT STA PRN Reason: Protocol Stop: 02/16/17 14:16 Last Admin: 02/16/17 13:58 Dose: 200 mls/hr Iohexol (Omnipaque 240 (50 Ml)) Confirm Administered Dose 50 ml .ROUTE .[facility] Stop: 02/16/17 08:38 Iohexol (Omnipaque 350 100 Ml) Confirm Administered Dose 350 mg .ROUTE .[facility] ONE Stop: 02/16/17 09:39 Iohexol (Omnipaque 350 100 Ml) Confirm Administered Dose 350 mg .ROUTE .[facility]-MED ONE Stop: 02/16/17 11:45 Morphine Sulfate (Morphine) 4 mg IVP STAT STA Stop: 02/16/17 08:28 Last Admin: 02/16/17 09:01 Dose: 4 mg Re-Assess: [facility] Pain Assessment Document 02/16/17 10:01 ALA (Rec: 02/16/17 10:19 [id number] Pain Reassessment Is this a pain reassessment? Yes Sleep Is patient sleeping during reassessment? No Presence of Pain Presence of Pain Yes Pain Scale Used Pain Scale Used Numeric Morphine Sulfate (Morphine) 4 mg IVP STAT STA Stop: 02/16/17 10:18 Last Admin: 02/16/17 10:59 Dose: 4 mg Re-Assess: [facility] Pain Assessment Document 02/16/17 11:59 ALA (Rec: 02/16/17 13:08 [id number] Pain Reassessment Is this a pain reassessment? Yes Sleep Is patient sleeping during reassessment? No Presence of Pain Presence of Pain Yes Pain Scale Used Pain Scale Used Numeric Morphine Sulfate (Morphine) 4 mg IVP STAT STA Stop: 02/16/17 13:43 Last Admin: 02/16/17 13:57 Dose: 4 mg Ondansetron HCl (Zofran Inj) 4 mg IVP STAT STA Stop: 02/16/17 08:28 Last Admin: 02/16/17 09:02 Dose: 4 mg Potassium Chloride (K-Dur 20 Meq Er Tab) 40 meq PO STAT STA Stop: 02/16/17 09:33 Last Admin: 02/16/17 09:47 Dose: 40 meq - Scribe Statement The provider has reviewed the documentation as recorded by the Aminahibsherri Chester Provider Scribe Attestation: All medical record entries made by the Scribe were at my direction and personally dictated by me. I have reviewed the chart and agree that the record accurately reflects my personal performance of the history, physical exam, medical decision making, and the department course for this patient. I have also personally directed, reviewed, and agree with the discharge instructions and disposition. Disposition/Present on Arrival - Present on Arrival Any Indicators Present on Arrival: No History of DVT/PE: No History of Uncontrolled Diabetes: No Urinary Catheter: No History Surgical Site Infection Following: None - Disposition Have Diagnosis and Disposition been Completed?: Yes Diagnosis: Intra-abdominal abscess, Abdominal pain Disposition: HOSPITALIZED Disposition Time: 14:47 Patient Plan: Admission Condition: FAIR Referrals: Eb Oneil, [Primary Care Provider] - Follow up with primary
[2017-02-16 09:03] LABS: ADD MANUAL DIFF? NO
[2017-02-16 09:06] LABS: BASO # 0.02 K/mm3 (0.0-2.0); BASO % 0.2 % (0.0-3.0); EOS # 0.1 (0.0-0.7); EOS % 1.1 % (1.5-5.0); GRAN # 8.01 (1.4-6.5); GRAN % 85.2 % (50.0-68.0); HEMATOCRIT 26.4 % (42.0-52.0); LYMPH # 0.8 (1.2-3.4); LYMPH % 8.8 % (22.0-35.0); MEAN CELL VOLUME 74.2 fL (80.0-105.0); MEAN CORPUSCULAR HGB CONC 31.1 g/dl (31.0-37.0); MEAN PLATELET VOLUME 7.6 fl (7.0-11.0); MONO # 0.4 (0.1-0.6); MONO % 4.7 % (1.0-6.0); PLATELET COUNT 579 10^3/uL (120.0-450.0); RED CELL DISTRIBUTION WIDTH 21.4 % (11.5-14.5); WHITE BLOOD COUNT 9.4 10^3/ul (4.5-11.0)
[2017-02-16 09:15] LABS: ALB/GLOB RATIO 0.9 (1.1-1.8); ALKALINE PHOSPHATASE 94 U/L (38-133); ALT/SGPT 40 U/L (7-56); AST/SGOT 52 U/L (15-59); BILIRUBIN,TOTAL 0.1 mg/dL (0.2-1.3); BLOOD UREA NITROGEN 6 mg/dL (7-21); CALCIUM 8.7 mg/dL (8.4-10.5); CARBON DIOXIDE 27 mmol/L (21-33); CHLORIDE 105 mmol/L (98-107); GFR AFRICAN-AMERICAN > 60; GLUCOSE,RANDOM 99 mg/dL (70-110); LIPASE 86 U/L (23-300); POTASSIUM 3.5 mmol/L (3.6-5.0); SODIUM 141 mmol/L (132-148); TOTAL PROTEIN 7.1 g/dL (5.8-8.3)
[2017-02-16 09:31] LABS: INR 1.11 (0.93-1.08); PARTIAL THROMBOPLASTIN TIME 24.7 Seconds (23.7-30.8)
[2017-02-16] MEDS ORDERED: Potassium Chloride 20 mEq ER Tab PO STA (09:32)
[2017-02-16] MEDS ORDERED: Iohexol 350 MG/100 ML VIAL ONE ×2 (09:38→11:44)
--- NOTE | 2017-02-16 13:23 | CT ---
PROCEDURE: CT Abdomen and Pelvis with contrast HISTORY: Crohn's h/o abscess r/o worse abscess COMPARISON: 12/30/2016 TECHNIQUE: CT scan of the abdomen and pelvis was performed after intravenous administration of contrast. Oral contrast was not administered. Coronal and sagittal reformatted images were obtained. Contrast dose: 100 mL Omnipaque 350 Radiation dose: Total exam DLP = 207.24 mGy-cm. This CT exam was performed using one or more of the following dose reduction techniques: Automated exposure control, adjustment of the mA and/or kV according to patient size, and/or use of iterative reconstruction technique. FINDINGS: LOWER THORAX: There are two 2-3 mm nodules in the right lung base. The left lung base is clear LIVER: The liver is normal in size and there is homogeneous enhancement without ductal dilatation or focal mass. GALLBLADDER AND BILE DUCTS: There are no calcified gallstones. PANCREAS: The pancreas is normal in size and there is homogeneous enhancement without focal mass or ductal dilatation. SPLEEN: The spleen is normal in size and there is homogeneous enhancement. There is a 6 mm low-attenuation lesion in the anterior spleen too small to characterize by CT criteria. ADRENALS: Both adrenal glands are normal in size without discrete nodule. KIDNEYS AND URETERS: Both kidneys are normal in size and there is homogeneous enhancement without hydronephrosis, solid or cystic mass. VASCULATURE: No aortic aneurysm. BOWEL: Evaluation of the bowel is limited in the absence of oral contrast. The proximal small bowel loops are normal in caliber. There are postsurgical changes in the small bowel in the right mid abdomen. There is fluid in the ascending colon. The remaining colon is unremarkable. No evidence of bowel dilatation or obstruction. APPENDIX: Not visualized. PERITONEUM: There is small amount of free fluid in the right lower quadrant and pelvis. LYMPH NODES: No enlarged lymph nodes. BLADDER: There is severe circumferential mural thickening of the urinary bladder wall. REPRODUCTIVE: Unremarkable. BONES: No acute fracture. OTHER FINDINGS: There is asymmetric enlargement and low attenuation in the right iliacus and psoas muscles with ill-defined enhancement. There are also tiny foci of air in the iliacus muscle. There is also linear abnormal enhancing tissue tracking from the right iliac crest to the midline anterior abdominal wall. There is also abnormal enhancement in the open wound in the back on the right side (series 2, image 96). Also noted is a rim enhancing 2.4 x 3.4 cm lesion in the right anterior lateral abdominal wall. There is edema and asymmetric enlargement of the right lateral wall muscles. IMPRESSION: 1. Findings are concerning for 2.4 x 3.4 cm abscess in the right lateral abdominal wall with associated edema and myositis. 2. Chest also noted is edema and fluid collection in the right iliacus and psoas muscles with ill-defined enhancement which may represent phlegmon or abscess. 3. Additional comments as described above.
[2017-02-16] MEDS ORDERED: Vancomycin 1gm in NS 250ml 1 GM/250 ML BAG IVPB STA (13:47)
[2017-02-16] MEDS ORDERED: Piperacill/Tazo 4.5gm in NS 4.5 GM/100 ML BAG IVPB STA (13:47)
--- NOTE | 2017-02-16 14:51 | CP.PCM.HP ---
<Jame Jean Baptiste - Last Filed: 02/16/17 15:02> History of Present Illness - History of Present Illness History of Present Illness: This is a 21 year old male with past medical history of Crohn's disease, vesicular cutaneous fistula and chronic abdominal abscess, presents to the emergency department complaining of right lower abominal pain. Patient reports his pain has worsened over the past 3 days. He notes chills, cough and chronic non-bloody diarrhea. Patient denies any fever, nausea, vomiting, chest pain, shortness of breath or any other complaints. He has had multiple admissions for the same problem. He was recently discharged from [facility] in [place] where he got picc line and iv abx. He is constantly requesting pain medications. PMH: Crohns on Remicaide Q4-6 wks, anemia PSH: multiple abdominal surgerys, IR & D for abscesses All: Benadryl, Shellfish, FISH, ketoralac SH: Denies ETOH use, current tobacco use, illicit drug use PMD: [facility]: [facility] Present on Admission - Present on Admission Any Indicators Present on Admission: No History of DVT/PE: No History of Uncontrolled Diabetes: No Urinary Catheter: No Decubitus Ulcer Present: No Review of Systems - Review of Systems All systems: reviewed and no additional remarkable complaints except Review of Systems: Negative except per HPI. Past Patient History - Infectious Disease Hx of Infectious Diseases: None - Tetanus Immunizations Tetanus Immunization: Unknown - Past Medical History & Family History Past Medical History?: Yes - Past Social History Smoking Status: Smoker Currrent Status Unknown Chewing Tobacco Use: No Cigar Use: No Alcohol: None Drugs: Denies Home Situation {Lives}: With Family Domestic Violence: Negative - CARDIAC Hx Cardiac Disorders: No - PULMONARY Hx Respiratory Disorders: Yes Hx Pneumonia: Yes - NEUROLOGICAL Hx Neurological Disorder: No - HEENT Hx HEENT Problems: No - RENAL Hx Chronic Kidney Disease: No - ENDOCRINE/METABOLIC Hx Endocrine Disorders: No - HEMATOLOGICAL/ONCOLOGICAL Hx Blood Disorders: Yes Hx Anemia: Yes - INTEGUMENTARY Hx Dermatological Problems: Yes - MUSCULOSKELETAL/RHEUMATOLOGICAL Hx Musculoskeletal Disorders: No Hx Falls: No - GASTROINTESTINAL Hx Gastrointestinal Disorders: Yes Hx Crohn's Disease: Yes - GENITOURINARY/GYNECOLOGICAL Hx Genitourinary Disorders: Yes Hx Urinary Tract Infection: Yes - PSYCHIATRIC Hx Psychophysiologic Disorder: Yes Hx Anxiety: Yes Hx Substance Use: No - SURGICAL HISTORY Other/Comment: Colon resection - ANESTHESIA Hx Anesthesia: Yes Hx Anesthesia Reactions: No Hx Malignant Hyperthermia: No Meds Allergies/Adverse Reactions: Allergies Allergy/AdvReac Type Severity Reaction Status Date / Time diphenhydramine Allergy RASH Verified 02/16/17 16:48 [From Benadryl] FISH Allergy RASH Verified 02/16/17 16:48 ketorolac [From Toradol] Allergy RASH Verified 02/16/17 16:48 shellfish derived AdvReac ANGIOEDEMA Verified 02/16/17 16:48 Physical Exam - Constitutional Appears: Non-toxic, No Acute Distress - Head Exam Head Exam: ATRAUMATIC, NORMAL INSPECTION, NORMOCEPHALIC - Eye Exam Eye Exam: EOMI - ENT Exam ENT Exam: Mucous Membranes Moist - Neck Exam Neck exam: Positive for: Full Rom, Normal Inspection - Respiratory Exam Respiratory Exam: Clear to Auscultation Bilateral, NORMAL BREATHING PATTERN - Cardiovascular Exam Cardiovascular Exam: +S1, +S2 - GI/Abdominal Exam GI & Abdominal Exam: Tenderness. absent: Distended Additional comments: Abdominal wounds with trace yellow pus - Extremities Exam Extremities exam: Positive for: full ROM, normal inspection - Back Exam Back exam: NORMAL INSPECTION - Neurological Exam Neurological exam: Alert, CN II-XII Intact, Oriented x3 - Psychiatric Exam Psychiatric exam: Normal Affect, Normal Mood - Skin Skin Exam: Dry, Intact, Normal Color, Warm Results - Vital Signs Recent Vital Signs: Last Vital Signs Temp 98.1 F 02/16/17 08:33 Pulse 81 02/16/17 14:00 Resp 17 02/16/17 14:00 BP 108/66 02/16/17 14:00 Pulse Ox 99 02/16/17 14:00 - Labs Result Diagrams: 02/16/17 08:55 02/16/17 08:55 Labs: Laboratory Results - last 24 hr 02/16/17 02/16/17 02/16/17 08:55 08:55 08:55 WBC 9.4 RBC 3.56 Hgb 8.2 L Hct 26.4 L MCV 74.2 L MCH 23.0 L MCHC 31.1 RDW 21.4 H Plt Count 579 H MPV 7.6 Gran % 85.2 H Lymph % (Auto) 8.8 L [place] % (Auto) 4.7 Eos % (Auto) 1.1 L Baso % (Auto) 0.2 Gran # 8.01 H Lymph # 0.8 L [place] # 0.4 Eos # 0.1 Baso # 0.02 PT 12.0 H INR 1.11 H APTT 24.7 Sodium 141 Potassium 3.5 L Chloride 105 Carbon Dioxide 27 Anion Gap 13 BUN 6 L Creatinine 0.8 Est GFR ( Amer) > 60 Est GFR (Non-Af Amer) > 60 Random Glucose 99 Calcium 8.7 Total Bilirubin 0.1 L AST 52 ALT 40 Alkaline Phosphatase 94 Total Protein 7.1 Albumin 3.4 Globulin 3.7 Albumin/Globulin Ratio 0.9 L Lipase 86 Assessment & Plan - Assessment and Plan (Free Text) Assessment: This is a 21 yo male with past medical hx of Crohn's and drug seeking behavior presenting with lower abdominal pain 1. Fistula/Crohn's disease -surgery consult. recs appreciated -ID consult. Dr. Wang. recs appreciated. -will get input from IR regarding drainage. -CT scan abdomen/pelvis shows 2.4 x 3.4 cm abscess in right abdominal wall -IV vanco and IV zosyn given in ER -will start PO flagyl tid -cultures drawn -f/u am labs 2. Chronic pain -will add percocet for pain control 3. hypokalemia -repleted with K -will f/u and continue to monitor 4. GI/DVT ppx -protonix -SCDs discussed with Dr. Ayoub <José Ayoub - Last Filed: 02/16/17 17:52> Results - Vital Signs Recent Vital Signs: Last Vital Signs Temp 98.1 F 02/16/17 08:33 Pulse 81 02/16/17 14:00 Resp 17 02/16/17 14:00 BP 108/66 02/16/17 14:00 Pulse Ox 99 02/16/17 14:00 - Labs Result Diagrams: 02/16/17 08:55 02/16/17 08:55 Attending/Attestation - Attestation I have personally seen and examined this patient.: Yes I have fully participated in the care of the patient.: Yes I have reviewed all pertinent clinical information: Yes Notes (Text): 02/16/17 17:44 attending note; Patient seen and examined with resident in ER. This is a 21 year old male with past medical history of Crohn's disease, vesicular cutaneous fistula and chronic abdominal abscess, Opiate dependency presents to the emergency department complaining of right lower abominal pain and increasing discharge. the patient was recently discharged from [facility] after abscess drainage. Patient has PICC in the right upper arm. As per patient he just completed once daily dosage of antibiotics but does not remember the name of the antibiotics. He does not remember the name of the doctors who is treating him at [facility]. CT showed a right psoas myositis. Small abscess noted. CT reviewed with interventional radiologist Dr. Hasmukh Farmer. no drainable collection. Surgery evaluation requested. Chronic opiate dependency; continue Per pain control. Started on IV vancomycin, Zosyn and by mouth Flagyl. ID evaluation requested. Medical records requested from [facility]. Patient is very noncompliance with follow up. Patient will be referred back to colorectal surgery at [facility]. 02/16/17 17:51 02/16/17 17:52
--- NOTE | 2017-02-16 15:24 | CP.PCM.CON ---
History of Present Illness - History of Present Illness History of Present Illness: General Surgery Progress Note for Dr. Gonzalez 21 year old male with past medical history of Crohn's disease, vesicular cutaneous fistula, pain medication seeking behavior and iron deficiency anemia presents with right lower abominal pain. Patient reports his abdominal pain started 3 days ago, similar his past Crohn's attacks. Patient has 3 vesicular cutaneous fistula in this abdomen which started draining light green color fluids 3 days ago as well. Patient was recently seen by a specialist at [facility] in [place] whom drained his abscess on 01/31/17 in the lower back. Patient was instructed to administer IV antibiotics x 2weeks via PICC upon discharge. Patient reports to have subject fever, chills and diarrhea at home. He had multiple previous admissions to [facility] for similar complaints. In the ED, patient's abdominal CT showed 2.4x3.4cm abscess in the right lateral abdominal wall. Surgical consultation was requested to evaluate patient's abdominal abscess. Patient denies any headache, weakness, shortness of breath, chest pain, nausea, vomiting, or urinary complaints. PMH: Crohn's, fistula, anemia, pain medication seeking behavior PSH: drainages of intra-abdominal abscesses x 9, bowel resection Social Hx: denies tobacco, alcohol or other drug use Meds: Finished unknown IV abx and percocet 3 days ago Allergy: Benadryl (rash), toradol (rash), fish (rash), shell fish (angioedema) Review of Systems - Constitutional Constitutional: As Per HPI, Chills, Fever. absent: Headache, Weakness - EENT Eyes: As Per HPI. absent: Blurred Vision, Change in Vision Ears: As Per HPI. absent: Dizziness Nose/Mouth/Throat: As Per HPI. absent: Nasal Congestion - Cardiovascular Cardiovascular: As Per HPI. absent: Chest Pain, Diaphoresis, Syncope - Respiratory Respiratory: As Per HPI, Cough. absent: Dyspnea - Gastrointestinal Gastrointestinal: As Per HPI, Abdominal Pain, Diarrhea. absent: Nausea, Vomiting - Genitourinary Genitourinary: As Per HPI. absent: Pyuria, Urinary Frequency, Urinary Hesitance , Urinary Urgency - Musculoskeletal Musculoskeletal: As Per HPI. absent: Back Pain - Integumentary Integumentary: As Per HPI Additional comments: draining abdominal fistula - Neurological Neurological: As Per HPI. absent: Dizziness, Syncope, Weakness - Psychiatric Psychiatric: As Per HPI. absent: Confusion, Depression - Endocrine Endocrine: As Per HPI - Hematologic/Lymphatic Hematologic: As Per HPI Past Patient History - Infectious Disease Hx of Infectious Diseases: None - Tetanus Immunizations Tetanus Immunization: Unknown - Past Medical History & Family History Past Medical History?: Yes - Past Social History Smoking Status: Smoker Currrent Status Unknown Chewing Tobacco Use: No Cigar Use: No Alcohol: None Drugs: Denies Home Situation {Lives}: With Family Domestic Violence: Negative - CARDIAC Hx Cardiac Disorders: No - PULMONARY Hx Respiratory Disorders: Yes Hx Pneumonia: Yes - NEUROLOGICAL Hx Neurological Disorder: No - HEENT Hx HEENT Problems: No - RENAL Hx Chronic Kidney Disease: No - ENDOCRINE/METABOLIC Hx Endocrine Disorders: No - HEMATOLOGICAL/ONCOLOGICAL Hx Blood Disorders: Yes Hx Anemia: Yes - INTEGUMENTARY Hx Dermatological Problems: Yes - MUSCULOSKELETAL/RHEUMATOLOGICAL Hx Musculoskeletal Disorders: No Hx Falls: No - GASTROINTESTINAL Hx Gastrointestinal Disorders: Yes Hx Crohn's Disease: Yes - GENITOURINARY/GYNECOLOGICAL Hx Genitourinary Disorders: Yes Hx Urinary Tract Infection: Yes - PSYCHIATRIC Hx Psychophysiologic Disorder: Yes Hx Anxiety: Yes Hx Substance Use: No - SURGICAL HISTORY Other/Comment: Colon resection - ANESTHESIA Hx Anesthesia: Yes Hx Anesthesia Reactions: No Hx Malignant Hyperthermia: No Meds Allergies/Adverse Reactions: Allergies Allergy/AdvReac Type Severity Reaction Status Date / Time diphenhydramine Allergy RASH Verified 02/16/17 08:28 [From Benadryl] FISH Allergy RASH Verified 02/16/17 08:28 ketorolac [From Toradol] Allergy RASH Verified 02/16/17 08:28 shellfish derived AdvReac ANGIOEDEMA Verified 02/16/17 08:28 - Medications Medications: Current Medications Sodium Chloride (Sodium Chloride 0.9%) 1,000 mls @ 100 mls/hr IV .Q10H STA Stop: 02/16/17 18:26 Last Admin: 02/16/17 09:01 Dose: 100 mls/hr Vancomycin HCl (Vancomycin 1gm) 1 gm in 250 mls @ 167 mls/hr IVPB STAT STA PRN Reason: Protocol Stop: 02/16/17 15:16 Last Admin: 02/16/17 14:40 Dose: 167 mls/hr Metronidazole (Flagyl) 500 mg PO TID BRYANT PRN Reason: Protocol Pantoprazole Sodium (Protonix Ec Tab) 40 mg PO DAILY BRYANT Physical Exam - Constitutional Appears: Non-toxic, No Acute Distress - Head Exam Head Exam: ATRAUMATIC, NORMAL INSPECTION - Eye Exam Eye Exam: EOMI, Normal appearance - ENT Exam ENT Exam: Mucous Membranes Moist - Neck Exam Neck exam: Positive for: Normal Inspection - Respiratory Exam Respiratory Exam: NORMAL BREATHING PATTERN. absent: Respiratory Distress - Cardiovascular Exam Cardiovascular Exam: +S1, +S2 - GI/Abdominal Exam GI & Abdominal Exam: Soft, Tenderness. absent: Hernia, Mass Additional comments: Three abdominal fistula located at RLQ draining light green color fluid. - Extremities Exam Extremities exam: Positive for: normal capillary refill, normal inspection, pedal pulses present - Back Exam Back exam: absent: NORMAL INSPECTION (slight edema in the left lower back (site drained 2 weeks ago)) - Neurological Exam Neurological exam: Alert, Oriented x3 - Psychiatric Exam Psychiatric exam: Normal Affect, Normal Mood - Skin Skin Exam: Normal Color, Warm Results - Vital Signs Recent Vital Signs: Last Vital Signs Temp 98.1 F 02/16/17 08:33 Pulse 81 02/16/17 14:00 Resp 17 02/16/17 14:00 BP 108/66 02/16/17 14:00 Pulse Ox 99 02/16/17 14:00 - Labs Result Diagrams: 02/16/17 08:55 02/16/17 08:55 Labs: Laboratory Results - last 24 hr 02/16/17 02/16/17 02/16/17 08:55 08:55 08:55 WBC 9.4 RBC 3.56 Hgb 8.2 L Hct 26.4 L MCV 74.2 L MCH 23.0 L MCHC 31.1 RDW 21.4 H Plt Count 579 H MPV 7.6 Gran % 85.2 H Lymph % (Auto) 8.8 L [place] % (Auto) 4.7 Eos % (Auto) 1.1 L Baso % (Auto) 0.2 Gran # 8.01 H Lymph # 0.8 L [place] # 0.4 Eos # 0.1 Baso # 0.02 PT 12.0 H INR 1.11 H APTT 24.7 Sodium 141 Potassium 3.5 L Chloride 105 Carbon Dioxide 27 Anion Gap 13 BUN 6 L Creatinine 0.8 Est GFR ( Amer) > 60 Est GFR (Non-Af Amer) > 60 Random Glucose 99 Calcium 8.7 Total Bilirubin 0.1 L AST 52 ALT 40 Alkaline Phosphatase 94 Total Protein 7.1 Albumin 3.4 Globulin 3.7 Albumin/Globulin Ratio 0.9 L Lipase 86 Assessment & Plan - Assessment and Plan (Free Text) Assessment: 21 year old male with past medical history of Crohn's disease, vesicular cutaneous fistula, pain medication seeking behavior and iron deficiency anemia presents with right lower abominal pain. Surgical consult was request to evaluate patient's right lower abdominal abscess found on CT scan. Plan: Right lower abdominal abscess -Draining bowel content via chronic fistula vs intraabdominal abscess -No surgical intervention indicated at this time -Topical vitamin A&D -Recommend GI workup -Antibiotic and pain management per primary team -Discuss with attending
[2017-02-16] MEDS ORDERED: Vitamins A & D Oint UD Foilpak TOP PRN (16:46)
[2017-02-16] MEDS: Oxycodone/Acetaminophen 5/325 mg Tab PO PRN ×2 (17:04→21:07)
[2017-02-16] MEDS: Piperacillin/Tazobact 3.375 gm 100 ML IVPB SCH ×2 (17:43→23:48)
[2017-02-16] MEDS: Morphine 2 mg/ml ISec IVP PRN ×2 (19:20→23:23)
[2017-02-16] MEDS ORDERED: Pneumococcal 23-Valent Vaccine IM ONE (20:50)
[2017-02-16] MEDS ORDERED: Vancomycin 1gm in NS 250ml 1 GM/250 ML BAG IVPB SCH (22:00)
[2017-02-17] MEDS: Oxycodone/Acetaminophen 5/325 mg Tab PO PRN ×4 (00:57→16:52)
[2017-02-17] MEDS: Morphine 2 mg/ml ISec IVP PRN ×5 (04:23→21:31)
[2017-02-17] MEDS: Piperacillin/Tazobact 3.375 gm 100 ML IVPB SCH ×3 (05:54→16:53)
[2017-02-17 07:25] LABS: ADD MANUAL DIFF? NO
[2017-02-17 07:29] LABS: BASO # 0.03 K/mm3 (0.0-2.0); BASO % 0.3 % (0.0-3.0); EOS # 0.3 (0.0-0.7); EOS % 2.5 % (1.5-5.0); GRAN # 8.73 (1.4-6.5); GRAN % 80.7 % (50.0-68.0); HEMATOCRIT 26.6 % (42.0-52.0); LYMPH % 9.2 % (22.0-35.0); MEAN CELL VOLUME 74.5 fL (80.0-105.0); MEAN CORPUSCULAR HEMOGLOBIN 23.2 pg (25.0-35.0); MEAN CORPUSCULAR HGB CONC 31.2 g/dl (31.0-37.0); MEAN PLATELET VOLUME 7.7 fl (7.0-11.0); MONO # 0.8 (0.1-0.6); MONO % 7.3 % (1.0-6.0); PLATELET COUNT 543 10^3/uL (120.0-450.0); RED CELL DISTRIBUTION WIDTH 21.8 % (11.5-14.5); WHITE BLOOD COUNT 10.8 10^3/ul (4.5-11.0)
[2017-02-17 07:45] LABS: ALB/GLOB RATIO 0.8 (1.1-1.8); ALKALINE PHOSPHATASE 89 U/L (38-133); ALT/SGPT 34 U/L (7-56); AST/SGOT 32 U/L (15-59); BILIRUBIN,TOTAL 0.2 mg/dL (0.2-1.3); BLOOD UREA NITROGEN 6 mg/dL (7-21); CALCIUM 7.7 mg/dL (8.4-10.5); CARBON DIOXIDE 25 mmol/L (21-33); CHLORIDE 105 mmol/L (98-107); GFR AFRICAN-AMERICAN > 60; GLUCOSE,RANDOM 86 mg/dL (70-110); MAGNESIUM 2.1 mg/dL (1.7-2.2); PHOSPHOROUS 3.9 mg/dL (2.5-4.5); POTASSIUM 4.5 mmol/L (3.6-5.0); SODIUM 138 mmol/L (132-148); TOTAL PROTEIN 6.6 g/dL (5.8-8.3)
[2017-02-17] MEDS ORDERED: Morphine 2 mg/ml ISec IVP STA (09:25)
[2017-02-17] MEDS: Pantoprazole 40 mg EC Tab PO SCH (09:37)
[2017-02-17] MEDS ORDERED: Vancomycin 1gm in NS 250ml 1 GM/250 ML BAG IVPB SCH (10:00)
--- NOTE | 2017-02-17 10:19 | CP.PCM.PN ---
Subjective - Date & Time of Evaluation Date of Evaluation: 02/17/17 Time of Evaluation: 07:10 - Subjective Subjective: General Surgery Progress Note for Dr. Gonzalez Patient seen and examined at bedside. Patient continued to ask for pain medications overnight and complained they are not enough for his pain. He expressed interest in signing out AMA. Otherwise he has no other complaints. Patient denies headache, fever, chills, shortness of breath, chest pain, nausea , vomiting, or urinary symptoms. Objective - Vital Signs/Intake and Output Vital Signs (last 24 hours): Temp Pulse Resp BP Pulse Ox 99.3 F 75 18 107/48 L 100 02/17/17 06:00 02/17/17 06:00 02/17/17 06:00 02/17/17 06:00 02/17/17 06:00 - Medications Medications: Current Medications Piperacillin Sod/Tazobactam Sod (Zosyn 3.375 In Ns 100ml) 100 mls @ 200 mls/hr IVPB Q6 BRYANT PRN Reason: Protocol Stop: 02/25/17 18:01 Last Admin: 02/17/17 05:54 Dose: 200 mls/hr Linezolid (Zyvox) 600 mg PO BID BRYANT PRN Reason: Protocol Stop: 02/24/17 10:01 Last Admin: 02/17/17 09:38 Dose: 600 mg Metronidazole (Flagyl) 500 mg PO TID BRYANT PRN Reason: Protocol Last Admin: 02/17/17 09:36 Dose: 500 mg Morphine Sulfate (Morphine) 1 mg IVP Q4H PRN PRN Reason: pain, sever Last Admin: 02/17/17 08:10 Dose: 1 mg Ondansetron HCl (Zofran Tab) 4 mg PO Q6 PRN PRN Reason: Nausea/Vomiting Oxycodone/Acetaminophen (Percocet 5/325 Mg Tab) 1 tab PO Q4H PRN PRN Reason: Pain, moderate (4-7) Stop: 02/19/17 16:10 Last Admin: 02/17/17 05:53 Dose: 1 tab Pantoprazole Sodium (Protonix Ec Tab) 40 mg PO DAILY [facility] Last Admin: 02/17/17 09:37 Dose: 40 mg Vitamin A (Vitamin A & D Oint Ud Foilpak) 1 ea TOP Q4 PRN PRN Reason: Other - Labs Labs: 02/17/17 07:20 02/17/17 07:20 PT 12.0 Seconds (9.9-11.8) H 02/16/17 08:55 INR 1.11 (0.93-1.08) H 02/16/17 08:55 APTT 24.7 Seconds (23.7-30.8) 02/16/17 08:55 - Constitutional Appears: Non-toxic, No Acute Distress - Head Exam Head Exam: ATRAUMATIC, NORMAL INSPECTION - Eye Exam Eye Exam: EOMI, Normal appearance - ENT Exam ENT Exam: Mucous Membranes Moist - Respiratory Exam Respiratory Exam: absent: Respiratory Distress - Cardiovascular Exam Cardiovascular Exam: +S1, +S2 - GI/Abdominal Exam GI & Abdominal Exam: Soft, Tenderness Additional comments: Three abdominal fistula located at RLQ draining light green and yellow color fluid. Dressing changed with sterile 4x4 gauze. Diffused tenderness to the touch. - Extremities Exam Extremities Exam: Normal Capillary Refill, Normal Inspection - Back Exam Additional comments: slight edema in the left lower back - Neurological Exam Neurological Exam: Alert, Awake, Oriented x3 - Psychiatric Exam Psychiatric exam: Agitated - Skin Skin Exam: Normal Color, Warm Assessment and Plan - Assessment and Plan (Free Text) Assessment: 21 year old male with past medical history of Crohn's disease, vesicular cutaneous fistula, pain medication seeking behavior and iron deficiency anemia presents with right lower abominal pain. Surgical consult was request to evaluate patient's right lower abdominal abscess found on CT scan. Plan: Right lower abdominal abscess -No surgical intervention indicated at this time -Topical vitamin A&D as skin protectant -Recommend GI workup -IV Antibiotic per ID -Discuss with attending
--- NOTE | 2017-02-17 10:19 | CP.PCM.CON ---
Past Patient History - Infectious Disease Hx of Infectious Diseases: None - Tetanus Immunizations Tetanus Immunization: Unknown - Past Medical History & Family History Past Medical History?: Yes - Past Social History Smoking Status: Current Some Days Smoker - CARDIAC Hx Cardiac Disorders: No - PULMONARY Hx Respiratory Disorders: Yes Hx Pneumonia: Yes - NEUROLOGICAL Hx Neurological Disorder: Yes Hx Dizziness: Yes (SYNCOPE) - HEENT Hx HEENT Problems: No - RENAL Hx Chronic Kidney Disease: No - ENDOCRINE/METABOLIC Hx Endocrine Disorders: No - HEMATOLOGICAL/ONCOLOGICAL Hx Blood Disorders: Yes Hx Anemia: Yes - INTEGUMENTARY Hx Dermatological Problems: Yes (RIGHT LOWER BACK FISTULA.DID I&D JANUARY [facility],) Other/Comment: 02-16-17 3 RIGHT ABDOMINAL WALL ABSCESS. WITH LIGHT GREEN DRAINAGE.MEDIUM AMT. - MUSCULOSKELETAL/RHEUMATOLOGICAL Hx Musculoskeletal Disorders: No Hx Falls: No - GASTROINTESTINAL Hx Gastrointestinal Disorders: Yes Hx Crohn's Disease: Yes - GENITOURINARY/GYNECOLOGICAL Hx Genitourinary Disorders: Yes Hx Urinary Tract Infection: Yes - PSYCHIATRIC Hx Psychophysiologic Disorder: Yes Hx Anxiety: Yes Hx Substance Use: Yes (H/O) - SURGICAL HISTORY Hx Surgeries: Yes Other/Comment: Colon resection - ANESTHESIA Hx Anesthesia: Yes Hx Anesthesia Reactions: No Hx Malignant Hyperthermia: No Meds Allergies/Adverse Reactions: Allergies Allergy/AdvReac Type Severity Reaction Status Date / Time diphenhydramine Allergy RASH Verified 02/16/17 16:48 [From Benadryl] FISH Allergy RASH Verified 02/16/17 16:48 ketorolac [From Toradol] Allergy RASH Verified 02/16/17 16:48 shellfish derived AdvReac ANGIOEDEMA Verified 02/16/17 16:48 - Medications Medications: Current Medications Piperacillin Sod/Tazobactam Sod (Zosyn 3.375 In Ns 100ml) 100 mls @ 200 mls/hr IVPB Q6 BRYANT PRN Reason: Protocol Stop: 02/25/17 18:01 Last Admin: 02/17/17 05:54 Dose: 200 mls/hr Linezolid (Zyvox) 600 mg PO BID BRYANT PRN Reason: Protocol Stop: 02/24/17 10:01 Last Admin: 02/17/17 09:38 Dose: 600 mg Metronidazole (Flagyl) 500 mg PO TID BRYANT PRN Reason: Protocol Last Admin: 06/16/17 09:36 Dose: 500 mg Morphine Sulfate (Morphine) 1 mg IVP Q4H PRN PRN Reason: pain, sever Last Admin: 02/17/17 08:10 Dose: 1 mg Ondansetron HCl (Zofran Tab) 4 mg PO Q6 PRN PRN Reason: Nausea/Vomiting Oxycodone/Acetaminophen (Percocet 5/325 Mg Tab) 1 tab PO Q4H PRN PRN Reason: Pain, moderate (4-7) Stop: 02/19/17 16:10 Last Admin: 02/17/17 05:53 Dose: 1 tab Pantoprazole Sodium (Protonix Ec Tab) 40 mg PO DAILY BRYANT Last Admin: 02/17/17 09:37 Dose: 40 mg Vitamin A (Vitamin A & D Oint Ud Foilpak) 1 ea TOP Q4 PRN PRN Reason: Other Results - Vital Signs Recent Vital Signs: Last Vital Signs Temp 99.3 F 02/17/17 06:00 Pulse 75 02/17/17 06:00 Resp 18 02/17/17 06:00 BP 107/48 L 02/17/17 06:00 Pulse Ox 100 02/17/17 06:00 - Labs Result Diagrams: 02/17/17 07:20 02/17/17 07:20 Labs: Laboratory Results - last 24 hr 02/17/17 02/17/17 07:20 07:20 WBC 10.8 RBC 3.57 Hgb 8.3 L Hct 26.6 L MCV 74.5 L MCH 23.2 L MCHC 31.2 RDW 21.8 H Plt Count 543 H MPV 7.7 Gran % 80.7 H Lymph % (Auto) 9.2 L [place] % (Auto) 7.3 H Eos % (Auto) 2.5 Baso % (Auto) 0.3 Gran # 8.73 H Lymph # 1.0 L [place] # 0.8 H Eos # 0.3 Baso # 0.03 Sodium 138 Potassium 4.5 Chloride 105 Carbon Dioxide 25 Anion Gap 13 BUN 6 L Creatinine 0.9 Est GFR ( Amer) > 60 Est GFR (Non-Af Amer) > 60 Random Glucose 86 Calcium 7.7 L Phosphorus 3.9 Magnesium 2.1 Total Bilirubin 0.2 AST 32 ALT 34 Alkaline Phosphatase 89 Total Protein 6.6 Albumin 3.0 Globulin 3.6 Albumin/Globulin Ratio 0.8 L
--- NOTE | 2017-02-17 15:20 | CP.PCM.PN ---
<Jame Jean Baptiste - Last Filed: 02/17/17 15:22> Subjective - Date & Time of Evaluation Date of Evaluation: 02/17/17 Time of Evaluation: 15:15 - Subjective Subjective: Medicine progress note. Attending: Dr. Ayoub Pt seen and examined at bedside. No acute distress. Pt requesting pain meds overnight and pt continuously requesting more and stronger pain meds this morning. Has hx of dependence on pain meds. No fevers, chills, vomiting. Does report some diarrhea. Objective - Vital Signs/Intake and Output Vital Signs (last 24 hours): Temp Pulse Resp BP Pulse Ox 99.3 F 75 18 107/48 L 100 02/17/17 06:00 02/17/17 06:00 02/17/17 06:00 02/17/17 06:00 02/17/17 06:00 - Medications Medications: Current Medications Piperacillin Sod/Tazobactam Sod (Zosyn 3.375 In Ns 100ml) 100 mls @ 200 mls/hr IVPB Q6 [facility] PRN Reason: Protocol Stop: 02/25/17 18:01 Last Admin: 02/17/17 05:54 Dose: 200 mls/hr Linezolid (Zyvox) 600 mg PO BID [facility] PRN Reason: Protocol Stop: 02/24/17 10:01 Last Admin: 02/17/17 09:38 Dose: 600 mg Metronidazole (Flagyl) 500 mg PO TID [facility] PRN Reason: Protocol Last Admin: 02/17/17 09:36 Dose: 500 mg Morphine Sulfate (Morphine) 1 mg IVP Q4H PRN PRN Reason: pain, sever Last Admin: 02/17/17 12:42 Dose: 1 mg Ondansetron HCl (Zofran Tab) 4 mg PO Q6 PRN PRN Reason: Nausea/Vomiting Oxycodone/Acetaminophen (Percocet 5/325 Mg Tab) 1 tab PO Q4H PRN PRN Reason: Pain, moderate (4-7) Stop: 02/19/17 16:10 Last Admin: 02/17/17 10:41 Dose: 1 tab Pantoprazole Sodium (Protonix Ec Tab) 40 mg PO DAILY [facility] Last Admin: 02/17/17 09:37 Dose: 40 mg Vitamin A (Vitamin A & D Oint Ud Foilpak) 1 ea TOP Q4 PRN PRN Reason: Other - Labs Labs: 02/17/17 07:20 02/17/17 07:20 PT 12.0 Seconds (9.9-11.8) H 02/16/17 08:55 INR 1.11 (0.93-1.08) H 02/16/17 08:55 APTT 24.7 Seconds (23.7-30.8) 02/16/17 08:55 - Constitutional Appears: Non-toxic, No Acute Distress - Head Exam Head Exam: ATRAUMATIC, NORMAL INSPECTION, NORMOCEPHALIC - Eye Exam Eye Exam: EOMI - ENT Exam ENT Exam: Mucous Membranes Moist - Neck Exam Neck Exam: Full ROM, Normal Inspection - Respiratory Exam Respiratory Exam: NORMAL BREATHING PATTERN. absent: Respiratory Distress - Cardiovascular Exam Cardiovascular Exam: +S1, +S2 - GI/Abdominal Exam Additional comments: Abdominal wounds with minimal drainage, mild diffuse tenderness to palpation - Extremities Exam Extremities Exam: Full ROM, Normal Inspection - Neurological Exam Neurological Exam: Alert, Awake, CN II-XII Intact, Oriented x3 - Psychiatric Exam Psychiatric exam: Normal Affect, Normal Mood - Skin Skin Exam: Dry, Intact, Normal Color, Warm Assessment and Plan - Assessment and Plan (Free Text) Assessment: This is a 21 yo male with past medical hx of Crohn's and drug seeking behavior presenting with lower abdominal pain 1. Crohn's disease with cutaneous fistula and abscess on CT -surgery consult. recs appreciated -no surgical intervention at this time -ID consult. Dr. Wang. recs appreciated. -will get input from IR regarding drainage>> no drainage possible as of now -CT scan abdomen/pelvis shows 2.4 x 3.4 cm abscess in right abdominal wall -IV vanco and IV zosyn given in ER -continue PO flagyl tid -pt very noncompliant with follow up, cannot remember details of recent hospital stay in [place] including names of doctors -pt continuously requesting pain meds -cultures negative so far -pt has picc in place -continue IV linezolid and IV zosyn -pending insurance approval for abx -f/u am labs 2. Chronic pain -will add percocet for pain control -pt also getting morphine for pain 3. hypokalemia -repleted with K -will f/u and continue to monitor 4. GI/DVT ppx -protonix -SCDs discussed with Dr. Ayoub <José Ayoub - Last Filed: 02/22/17 18:05> Objective - Vital Signs/Intake and Output Vital Signs (last 24 hours): Temp Pulse Resp BP Pulse Ox 99.7 F H 100 H 20 103/67 98 02/22/17 06:00 02/22/17 06:00 02/22/17 06:00 02/22/17 06:00 02/22/17 06:00 Intake and Output: 02/22/17 02/22/17 06:59 18:59 Intake Total 660 Output Total 1600 Balance -940 - Labs Labs: 02/22/17 09:00 02/22/17 09:00 PT 12.0 Seconds (9.9-11.8) H 02/16/17 08:55 INR 1.11 (0.93-1.08) H 02/16/17 08:55 APTT 24.7 Seconds (23.7-30.8) 02/16/17 08:55 Attending/Attestation - Attestation I have personally seen and examined this patient.: Yes I have fully participated in the care of the patient.: Yes I have reviewed all pertinent clinical information, including history, physical exam and plan: Yes Notes (Text): 02/22/17 18:00 attending note; Patient seen and examined with resident. 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 the patient was recently discharged from [facility] after abscess drainage. Patient has PICC in the right upper arm. As per patient he just completed once daily dosage of antibiotics but does not remember the name of the antibiotics. Case discussed with keycase assembler in detail. The patient was not found by infusion company after completion of IV antibiotics. currently they won't follow up with him at home. CT showed a right psoas myositis. Small abscess noted. CT reviewed with interventional radiologist Dr. Hasmukh Farmer. no drainable collection. Surgery evaluation appreciated. Chronic opiate dependency; [place] [employer] aware reviewed. patient gets opiate prescriptions from multiple hospitals/doctors. Started on IV vancomycin, Zosyn and by mouth Flagyl. ID evaluation appreciated. Suggested to continue daptomycin, invanz and fluconazole to complete 2 more weeks. patient is more interested in pain medication than antibiotics. Medical records requested from [facility]. Patient is very noncompliance with follow up. Patient will be referred back to colorectal surgery at [facility].
--- NOTE | 2017-02-17 17:51 | CP.PCM.CON ---
History of Present Illness - History of Present Illness History of Present Illness: 21 year old male with PMH of poorly-controlled Crohn's disease with history of colocutaneous fistulas, abdominal abscesses was recently admitted in [facility] for abdominal pain and was again found to have intra-abdominal abscess and was discharged with PICC line on Daptomycin, Invanz and Diflucan. The patient was supposed to complete these for 2 weeks but the patient was non- compliant. He is now in [facility] complaining of increasing abdominal pain. He denies nausea or vomiting, no diarrhea, no fever or chills, no headache or dizziness, no chest pain, no SOB, no cough or colds, no sore throat, no penile discharge. In the ED, CT abdomen and pelvis showed intra- abdominal abscess and Infectious diseases consult is requested to further evaluate and manage. Review of Systems - Review of Systems All systems: reviewed and no additional remarkable complaints except (as per HPI ) Past Patient History - Infectious Disease Hx of Infectious Diseases: None - Tetanus Immunizations Tetanus Immunization: Unknown - Past Medical History & Family History Past Medical History?: Yes - Past Social History Smoking Status: Current Some Days Smoker - CARDIAC Hx Cardiac Disorders: No - PULMONARY Hx Respiratory Disorders: Yes Hx Pneumonia: Yes - NEUROLOGICAL Hx Neurological Disorder: Yes Hx Dizziness: Yes (SYNCOPE) - HEENT Hx HEENT Problems: No - RENAL Hx Chronic Kidney Disease: No - ENDOCRINE/METABOLIC Hx Endocrine Disorders: No - HEMATOLOGICAL/ONCOLOGICAL Hx Blood Disorders: Yes Hx Anemia: Yes - INTEGUMENTARY Hx Dermatological Problems: Yes (RIGHT LOWER BACK FISTULA.DID I&D JANUARY 31 [facility],) Other/Comment: 02-16-17 3 RIGHT ABDOMINAL WALL ABSCESS. WITH LIGHT GREEN DRAINAGE.MEDIUM AMT. - MUSCULOSKELETAL/RHEUMATOLOGICAL Hx Musculoskeletal Disorders: No Hx Falls: No - GASTROINTESTINAL Hx Gastrointestinal Disorders: Yes Hx Crohn's Disease: Yes - GENITOURINARY/GYNECOLOGICAL Hx Genitourinary Disorders: Yes Hx Urinary Tract Infection: Yes - PSYCHIATRIC Hx Psychophysiologic Disorder: Yes Hx Anxiety: Yes Hx Substance Use: Yes (H/O) - SURGICAL HISTORY Hx Surgeries: Yes Other/Comment: Colon resection - ANESTHESIA Hx Anesthesia: Yes Hx Anesthesia Reactions: No Hx Malignant Hyperthermia: No Meds Home Medications: Home Medication List Medication Instructions Recorded Confirmed Type guaiFENesin/Codeine [Robitussin 5 ml PO Q4H #10 [facility] 02/17/17 Rx w/Codeine] Allergies/Adverse Reactions: Allergies Allergy/AdvReac Type Severity Reaction Status Date / Time diphenhydramine Allergy RASH Verified 02/16/17 16:48 [From Benadryl] FISH Allergy RASH Verified 02/16/17 16:48 ketorolac [From Toradol] Allergy RASH Verified 02/16/17 16:48 shellfish derived AdvReac ANGIOEDEMA Verified 02/16/17 16:48 - Medications Medications: Current Medications Piperacillin Sod/Tazobactam Sod (Zosyn 3.375 In Ns 100ml) 100 mls @ 200 mls/hr IVPB Q6 [facility] PRN Reason: Protocol Stop: 02/25/17 18:01 Last Admin: 02/17/17 05:54 Dose: 200 mls/hr Vancomycin HCl (Vancomycin 1gm) 1 gm in 250 mls @ 167 mls/hr IVPB Q12 [facility] PRN Reason: Protocol Last Admin: 02/16/17 21:08 Dose: 167 mls/hr Metronidazole (Flagyl) 500 mg PO TID [facility] PRN Reason: Protocol Last Admin: 02/16/17 17:21 Dose: 500 mg Morphine Sulfate (Morphine) 1 mg IVP Q4H PRN PRN Reason: pain, sever Last Admin: 02/17/17 04:23 Dose: 1 mg Ondansetron HCl (Zofran Tab) 4 mg PO Q6 PRN PRN Reason: Nausea/Vomiting Oxycodone/Acetaminophen (Percocet 5/325 Mg Tab) 1 tab PO Q4H PRN PRN Reason: Pain, moderate (4-7) Stop: 02/19/17 16:10 Last Admin: 02/17/17 05:53 Dose: 1 tab Pantoprazole Sodium (Protonix Ec Tab) 40 mg PO DAILY [facility] Vitamin A (Vitamin A & D Oint Ud Foilpak) 1 ea TOP Q4 PRN PRN Reason: Other Physical Exam - Constitutional Appears: Non-toxic, No Acute Distress - Head Exam Head Exam: NORMAL INSPECTION - ENT Exam ENT Exam: Mucous Membranes Moist - Neck Exam Neck exam: Negative for: Lymphadenopathy, Meningismus - Respiratory Exam Respiratory Exam: Decreased Breath Sounds - Cardiovascular Exam Cardiovascular Exam: +S1, +S2 - GI/Abdominal Exam GI & Abdominal Exam: Soft, Tenderness (mild, lower quadrants). absent: Distended, Guarding, Rebound, Rigid - Extremities Exam Additional comments: left upper arm PICC line in place Results - Vital Signs Recent Vital Signs: Last Vital Signs Temp 98.7 F 02/16/17 20:16 Pulse 81 02/16/17 20:16 Resp 17 02/16/17 20:16 BP 106/68 02/16/17 20:16 Pulse Ox 100 02/16/17 16:00 - Labs Result Diagrams: 02/17/17 07:20 02/17/17 07:20 Assessment & Plan - Assessment and Plan (Free Text) Plan: Assessment Intra-abdominal abscess history of enterocutaneous fistula with associated areas of phlegmon and microabscesses, previously grew Vancomycin-resistant Enterococcus faecium from , growing gram positive cocci and yeast from 11/27, in a patient with poorly- controlled Crohn's disease, now growing VRE again Plan continue Zyvox, Zosyn and Diflucan - discussed with Dr. Ayoub Will continue to monitor clinically while the patient is in the hospital
[2017-02-18] MEDS: Piperacillin/Tazobact 3.375 gm 100 ML IVPB SCH ×4 (00:51→17:07)
[2017-02-18] MEDS: Oxycodone/Acetaminophen 5/325 mg Tab PO PRN ×4 (00:52→17:07)
[2017-02-18] MEDS: Morphine 2 mg/ml ISec IVP PRN ×5 (02:06→20:35)
[2017-02-18 07:33] LABS: ADD MANUAL DIFF? NO
[2017-02-18 07:38] LABS: BASO # 0.01 K/mm3 (0.0-2.0); BASO % 0.1 % (0.0-3.0); EOS # 0.2 (0.0-0.7); EOS % 1.7 % (1.5-5.0); GRAN # 8.73 (1.4-6.5); GRAN % 81.7 % (50.0-68.0); HEMATOCRIT 27.7 % (42.0-52.0); LYMPH % 9.2 % (22.0-35.0); MEAN CELL VOLUME 74.5 fL (80.0-105.0); MEAN CORPUSCULAR HEMOGLOBIN 23.1 pg (25.0-35.0); MONO # 0.8 (0.1-0.6); MONO % 7.3 % (1.0-6.0); PLATELET COUNT 594 10^3/uL (120.0-450.0); RED CELL DISTRIBUTION WIDTH 21.6 % (11.5-14.5); WHITE BLOOD COUNT 10.7 10^3/ul (4.5-11.0)
[2017-02-18 07:50] LABS: ALB/GLOB RATIO 0.9 (1.1-1.8); ALKALINE PHOSPHATASE 90 U/L (38-133); ALT/SGPT 34 U/L (7-56); AST/SGOT 50 U/L (15-59); BILIRUBIN,TOTAL 0.2 mg/dL (0.2-1.3); BLOOD UREA NITROGEN 7 mg/dL (7-21); CALCIUM 8.6 mg/dL (8.4-10.5); CARBON DIOXIDE 28 mmol/L (21-33); CHLORIDE 103 mmol/L (95-110); GFR AFRICAN-AMERICAN > 60; GLUCOSE,RANDOM 81 mg/dL (70-110); PHOSPHOROUS 3.3 mg/dL (2.5-4.5); POTASSIUM 3.8 mmol/L (3.6-5.0); SODIUM 139 mmol/L (132-148); TOTAL PROTEIN 6.9 g/dL (5.8-8.3)
--- NOTE | 2017-02-18 08:40 | CON ---
DATE: 02/17/2017 HISTORY OF PRESENT ILLNESS: This 21-year-old patient with a history of Crohn's disease with colocutaneous fistula, history of chronic abdominal abscesses presented to the Emergency Room with worsening of the right lower quadrant abdominal pain. This patient has been followed by Dr. Patrick at [facility] The patient has been on Remicade infusions, last infusion was on 01/07. Subsequently, the patient was hospitalized in the [facility] with an abscess and he was admitted and he was given intravenous antibiotics through PICC line. The next scheduled dose of fusion on 02/[address] Patrick because of the recent infection and has been receiving antibiotics. The patient has an appointment to be followed at the [facility] GI clinic on 03/16. The patient came in because of the worsening of the pain. The patient was on Diflucan, daptomycin and ____. PAST MEDICAL HISTORY: Significant as above, history of multiple abdominal surgeries, incision and drainage of abscess. The patient was on Remicade for Crohn's. ALLERGIES: HE IS ALLERGIC TO MULTIPLE SHELLFISH, KETOROLAC, TORADOL AND BENADRYL. SOCIAL HISTORY: Denies alcohol. Occasional smoking. At this time the patient had a CAT scan done in the ER and was found to have an abscess on the right side abdominal area and admitted. Other past medical history significant as above. PHYSICAL EXAMINATION: GENERAL: The patient is lying on the bed, not in acute distress. VITAL SIGNS: Temperature is 98.7, pulse 91, blood pressure is 100/65, O2 saturation 100%. HEENT: Atraumatic, anicteric. NECK: Supple. HEART: S1, S2 heard. LUNGS: Bilateral air entry present. ABDOMEN: Soft. Dressing present on abdominal wound with yellowish discharge. The scar also seen. The patient was tender in the lower abdomen, mainly in the right lower quadrant area. There is no rebound. EXTREMITIES: No edema. No cyanosis negative. NEUROLOGIC: Alert, oriented. Moves all the extremities. LABORATORY DATA: Hemoglobin 8.3, hematocrit of 26.6, WBC is 10.8, platelets 543. Coagulations: PT, PTT normal. Review of the blood work showed LFTs are essentially unremarkable. Chemistry is essentially unremarkable. The CT scan of the abdomen and pelvis done was reviewed. ASSESSMENT: This 21-year-old patient with a long history of Crohn's disease on Remicade had abdominal abscess. Recently in the [facility], he was put on antibiotics. The patient came to the Emergency Room for worsening of the pain. The patient still has a PICC line. The patient is on Remicade infusion. The last Remicade infusion scheduled on 02/08 was canceled because of the infection. RECOMMEND: 1. Continue the antibiotics as per ID. 2. Close followup of the hemoglobin and hematocrit. 3. This patient may need a coordinated care. The patient's care now appears to be more fragmented and also compliance is an issue. The patient may need to have surgical intervention if there is no significant improvement with antibiotics alone in view of this collection. Will discuss with the surgical team and also the primary doctor. At the present time, the plan is patient prefers to have followup at the [facility], which we agree. We will continue to closely follow up his care and suggest further management based on the clinical course. Teofilo Sanders MD cc: [id number] TT: 02/18/2017 08:40:01 Confirmation # [id number] Dictation # [id number] MTDD
[2017-02-18] MEDS: Pantoprazole 40 mg EC Tab PO SCH (08:59)
[2017-02-18] MEDS: Fluconazole IV 200mg/100 ml NS 100 ML IVPB SCH (09:00)
--- NOTE | 2017-02-18 10:46 | CP.PCM.PN ---
Subjective - Date & Time of Evaluation Date of Evaluation: 02/18/17 Time of Evaluation: 10:42 - Subjective Subjective: Surgery for Mike Lisa PT S&E. C/O abd pain. Abscesses continue to drain. Denies F/C/N/V/D/CP/SOB Objective - Vital Signs/Intake and Output Vital Signs (last 24 hours): Temp Pulse Resp BP Pulse Ox 98.5 F 86 20 106/68 99 02/18/17 07:50 02/18/17 07:50 02/18/17 07:50 02/18/17 07:50 02/18/17 07:50 Intake and Output: 02/18/17 02/18/17 06:59 18:59 Intake Total 1380 120 Output Total 1300 1400 Balance 80 -1280 - Medications Medications: Current Medications Piperacillin Sod/Tazobactam Sod (Zosyn 3.375 In Ns 100ml) 100 mls @ 200 mls/hr IVPB Q6 [facility] PRN Reason: Protocol Stop: 02/25/17 18:01 Last Admin: 02/18/17 05:08 Dose: 200 mls/hr Fluconazole (Diflucan Iv 200 Mg/100 Ml Ns) 100 mls @ 100 mls/hr IVPB DAILY [facility] PRN Reason: Protocol Last Admin: 02/18/17 09:00 Dose: 100 mls/hr Linezolid (Zyvox) 600 mg PO BID [facility] PRN Reason: Protocol Stop: 02/24/17 10:01 Last Admin: 02/18/17 09:00 Dose: 600 mg Metronidazole (Flagyl) 500 mg PO TID [facility] PRN Reason: Protocol Last Admin: 02/18/17 08:59 Dose: 500 mg Morphine Sulfate (Morphine) 2 mg IVP Q4H PRN PRN Reason: pain, sever Ondansetron HCl (Zofran Tab) 4 mg PO Q6 PRN PRN Reason: Nausea/Vomiting Oxycodone/Acetaminophen (Percocet 5/325 Mg Tab) 1 tab PO Q8H PRN PRN Reason: Pain, moderate (4-7) Stop: 02/19/17 16:10 Pantoprazole Sodium (Protonix Ec Tab) 40 mg PO DAILY [facility] Last Admin: 02/18/17 08:59 Dose: 40 mg Vitamin A (Vitamin A & D Oint Ud Foilpak) 1 ea TOP Q4 PRN PRN Reason: Other - Labs Labs: 02/18/17 07:00 02/18/17 07:00 PT 12.0 Seconds (9.9-11.8) H 02/16/17 08:55 INR 1.11 (0.93-1.08) H 02/16/17 08:55 APTT 24.7 Seconds (23.7-30.8) 02/16/17 08:55 - Constitutional Appears: No Acute Distress - Head Exam Head Exam: ATRAUMATIC, NORMAL INSPECTION, NORMOCEPHALIC - Eye Exam Eye Exam: EOMI, Normal appearance, PERRL Pupil Exam: NORMAL ACCOMODATION, PERRL - ENT Exam ENT Exam: Mucous Membranes Moist, Normal Exam - Neck Exam Neck Exam: Full ROM, Normal Inspection. absent: Lymphadenopathy - Respiratory Exam Respiratory Exam: Clear to Ausculation Bilateral, NORMAL BREATHING PATTERN - Cardiovascular Exam Cardiovascular Exam: REGULAR RHYTHM, +S1, +S2. absent: Murmur - GI/Abdominal Exam GI & Abdominal Exam: Soft, Tenderness, Normal Bowel Sounds. absent: Distended, Firm, Guarding, Rigid Additional comments: multiple abd wall abscess: purulent drainage. - Extremities Exam Extremities Exam: Full ROM, Normal Capillary Refill - Back Exam Back Exam: NORMAL INSPECTION - Neurological Exam Neurological Exam: Alert, Awake, CN II-XII Intact, Normal Gait, Oriented x3 - Skin Skin Exam: Warm Assessment and Plan - Assessment and Plan (Free Text) Assessment: 21 year old male with past medical history of Crohn's disease, vesicular cutaneous fistula, pain medication seeking behavior and iron deficiency anemia presents with right lower abominal pain. Surgical consult was request to evaluate patient's right lower abdominal abscess found on CT scan. Plan: Right lower abdominal abscess -No surgical intervention indicated at this time -Topical vitamin A&D as skin protectant -GI recommends surgical intervention if not better with ABX -IV Antibiotic per ID -DW attending
--- NOTE | 2017-02-18 11:56 | CP.PCM.PN ---
<Aric Easley - Last Filed: 02/18/17 11:53> Subjective - Date & Time of Evaluation Date of Evaluation: 02/18/17 Time of Evaluation: 09:00 - Subjective Subjective: Medicine progress note. Pt seen and examined at bedside. No acute events overnight. Pt c/o R sided abd pain. Requesting more pain medication. Denies any art, dizziness, f/c, sob, cp, n /v/d. Objective - Vital Signs/Intake and Output Vital Signs (last 24 hours): Temp Pulse Resp BP Pulse Ox 98.5 F 86 20 106/68 99 02/18/17 07:50 02/18/17 07:50 02/18/17 07:50 02/18/17 07:50 02/18/17 07:50 Intake and Output: 02/18/17 02/18/17 06:59 18:59 Intake Total 1380 120 Output Total 1300 1400 Balance 80 -1280 - Medications Medications: Current Medications Piperacillin Sod/Tazobactam Sod (Zosyn 3.375 In Ns 100ml) 100 mls @ 200 mls/hr IVPB Q6 [facility] PRN Reason: Protocol Stop: 02/25/17 18:01 Last Admin: 02/18/17 05:08 Dose: 200 mls/hr Fluconazole (Diflucan Iv 200 Mg/100 Ml Ns) 100 mls @ 100 mls/hr IVPB DAILY [facility] PRN Reason: Protocol Last Admin: 02/18/17 09:00 Dose: 100 mls/hr Linezolid (Zyvox) 600 mg PO BID [facility] PRN Reason: Protocol Stop: 02/24/17 10:01 Last Admin: 02/18/17 09:00 Dose: 600 mg Metronidazole (Flagyl) 500 mg PO TID [facility] PRN Reason: Protocol Last Admin: 02/18/17 08:59 Dose: 500 mg Morphine Sulfate (Morphine) 2 mg IVP Q4H PRN PRN Reason: pain, sever Last Admin: 02/18/17 10:46 Dose: 2 mg Ondansetron HCl (Zofran Tab) 4 mg PO Q6 PRN PRN Reason: Nausea/Vomiting Oxycodone/Acetaminophen (Percocet 5/325 Mg Tab) 1 tab PO Q8H PRN PRN Reason: Pain, moderate (4-7) Stop: 02/19/17 16:10 Pantoprazole Sodium (Protonix Ec Tab) 40 mg PO DAILY [facility] Last Admin: 02/18/17 08:59 Dose: 40 mg Vitamin A (Vitamin A & D Oint Ud Foilpak) 1 ea TOP Q4 PRN PRN Reason: Other - Labs Labs: 02/18/17 07:00 02/18/17 07:00 PT 12.0 Seconds (9.9-11.8) H 02/16/17 08:55 INR 1.11 (0.93-1.08) H 02/16/17 08:55 APTT 24.7 Seconds (23.7-30.8) 02/16/17 08:55 - Constitutional Appears: No Acute Distress - Head Exam Head Exam: ATRAUMATIC, NORMAL INSPECTION, NORMOCEPHALIC - Eye Exam Eye Exam: EOMI, Normal appearance, PERRL Pupil Exam: NORMAL ACCOMODATION, PERRL - ENT Exam ENT Exam: Mucous Membranes Moist, Normal Exam - Neck Exam Neck Exam: Full ROM, Normal Inspection. absent: Lymphadenopathy - Respiratory Exam Respiratory Exam: Clear to Ausculation Bilateral, NORMAL BREATHING PATTERN. absent: Rales, Wheezes - Cardiovascular Exam Cardiovascular Exam: REGULAR RHYTHM, +S1, +S2. absent: Murmur - GI/Abdominal Exam GI & Abdominal Exam: Soft, Tenderness, Normal Bowel Sounds. absent: Distended Additional comments: minimal drainage, diffuse tenderness to palpation - Extremities Exam Extremities Exam: Full ROM, Normal Capillary Refill, Normal Inspection. absent : Joint Swelling, Pedal Edema - Back Exam Back Exam: NORMAL INSPECTION - Neurological Exam Neurological Exam: Alert, Awake, CN II-XII Intact, Oriented x3 - Psychiatric Exam Psychiatric exam: Normal Affect, Normal Mood - Skin Skin Exam: Dry, Intact, Normal Color, Warm Assessment and Plan - Assessment and Plan (Free Text) Assessment: This is a 21 yo male with past medical hx of Crohn's and drug seeking behavior presents with lower abdominal pain, fistula and abscess. 1. 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 Dr. Wang. - cont zyvox, diflucan, flagyl, zosyn -Curgery consult Cont IV abx no surgical intervention at this time -f/u IR regarding drainage -no drainage possible at this time -CT scan abdomen/pelvis shows 2.4 x 3.4 cm abscess in right abdominal wall -cultures negative so far -pt has picc in place -pending insurance approval for abx -f/u am labs 2. Chronic pain -pt continuously requesting pain meds - Increased morphine 1mg-->2mg - Dec percocet Q4h to Q8H -pt also getting morphine for pain 3. hypokalemia -repleted with K -will f/u and continue to monitor 4. GI/DVT ppx -protonix -SCDs Case and plan was seen, reviewed and discussed in detail with Dr Kwan. <Emir Kwan - Last Filed: 02/18/17 12:46> Objective - Vital Signs/Intake and Output Vital Signs (last 24 hours): Temp Pulse Resp BP Pulse Ox 98.5 F 86 20 106/68 99 02/18/17 07:50 02/18/17 07:50 02/18/17 07:50 02/18/17 07:50 02/18/17 07:50 Intake and Output: 02/18/17 02/18/17 06:59 18:59 Intake Total 1380 120 Output Total 1300 1400 Balance 80 -1280 - Medications Medications: Current Medications Piperacillin Sod/Tazobactam Sod (Zosyn 3.375 In Ns 100ml) 100 mls @ 200 mls/hr IVPB Q6 [facility] PRN Reason: Protocol Stop: 02/25/17 18:01 Last Admin: 02/18/17 05:08 Dose: 200 mls/hr Fluconazole (Diflucan Iv 200 Mg/100 Ml Ns) 100 mls @ 100 mls/hr IVPB DAILY [facility] PRN Reason: Protocol Last Admin: 02/18/17 09:00 Dose: 100 mls/hr Linezolid (Zyvox) 600 mg PO BID [facility] PRN Reason: Protocol Stop: 02/24/17 10:01 Last Admin: 02/18/17 09:00 Dose: 600 mg Metronidazole (Flagyl) 500 mg PO TID [facility] PRN Reason: Protocol Last Admin: 02/18/17 08:59 Dose: 500 mg Morphine Sulfate (Morphine) 2 mg IVP Q4H PRN PRN Reason: pain, sever Last Admin: 02/18/17 10:46 Dose: 2 mg Ondansetron HCl (Zofran Tab) 4 mg PO Q6 PRN PRN Reason: Nausea/Vomiting Oxycodone/Acetaminophen (Percocet 5/325 Mg Tab) 1 tab PO Q8H PRN PRN Reason: Pain, moderate (4-7) Stop: 02/19/17 16:10 Pantoprazole Sodium (Protonix Ec Tab) 40 mg PO DAILY [facility] Last Admin: 02/18/17 08:59 Dose: 40 mg Vitamin A (Vitamin A & D Oint Ud Foilpak) 1 ea TOP Q4 PRN PRN Reason: Other - Labs Labs: 02/18/17 07:00 02/18/17 07:00 PT 12.0 Seconds (9.9-11.8) H 02/16/17 08:55 INR 1.11 (0.93-1.08) H 02/16/17 08:55 APTT 24.7 Seconds (23.7-30.8) 02/16/17 08:55 Attending/Attestation - Attestation I have personally seen and examined this patient.: Yes I have fully participated in the care of the patient.: Yes I have reviewed all pertinent clinical information, including history, physical exam and plan: Yes Notes (Text): 02/18/17 12:40 21 year old male with past medical history of Crohn's disease, 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 He was recently discharged from [facility] after abscess drainage and also reports he recently finished antibiotics. CT scan was reviewed as above; no drainable collection as per IR. Surgery and ID are following. Continue with antibiotics as above. horse racetrack manager notes were reviewed regarding home infusion therapy. Will follow up with clinical case manager on Monday for discharge plan. He is on morphine and percocet prn for pain. He complains of chronic pain but appears comfortable in bed. Percocet was tapered. He was counselled on risks of narcotic abuse. Upon discharge patient will be referred back to colorectal surgery at [facility]. Emir Kwan MD Hospitalist.
--- NOTE | 2017-02-18 15:14 | CP.PCM.PN ---
Subjective - Date & Time of Evaluation Date of Evaluation: 02/18/17 Time of Evaluation: 11:55 - Subjective Subjective: Patient is still complaining of right sided abdominal pain, no fevers overnight. Objective - Vital Signs/Intake and Output Vital Signs (last 24 hours): Temp Pulse Resp BP Pulse Ox 98.5 F 86 20 106/68 99 02/18/17 07:50 02/18/17 07:50 02/18/17 07:50 02/18/17 07:50 02/18/17 07:50 Intake and Output: 02/18/17 02/18/17 06:59 18:59 Intake Total 1380 120 Output Total 1300 1400 Balance 80 -1280 - Medications Medications: Current Medications Piperacillin Sod/Tazobactam Sod (Zosyn 3.375 In Ns 100ml) 100 mls @ 200 mls/hr IVPB Q6 [facility] PRN Reason: Protocol Stop: 02/25/17 18:01 Last Admin: 02/18/17 05:08 Dose: 200 mls/hr Fluconazole (Diflucan Iv 200 Mg/100 Ml Ns) 100 mls @ 100 mls/hr IVPB DAILY [facility] PRN Reason: Protocol Last Admin: 02/18/17 09:00 Dose: 100 mls/hr Linezolid (Zyvox) 600 mg PO BID [facility] PRN Reason: Protocol Stop: 02/24/17 10:01 Last Admin: 02/18/17 09:00 Dose: 600 mg Metronidazole (Flagyl) 500 mg PO TID [facility] PRN Reason: Protocol Last Admin: 02/18/17 08:59 Dose: 500 mg Morphine Sulfate (Morphine) 2 mg IVP Q4H PRN PRN Reason: pain, sever Ondansetron HCl (Zofran Tab) 4 mg PO Q6 PRN PRN Reason: Nausea/Vomiting Oxycodone/Acetaminophen (Percocet 5/325 Mg Tab) 1 tab PO Q8H PRN PRN Reason: Pain, moderate (4-7) Stop: 02/19/17 16:10 Pantoprazole Sodium (Protonix Ec Tab) 40 mg PO DAILY [facility] Last Admin: 02/18/17 08:59 Dose: 40 mg Vitamin A (Vitamin A & D Oint Ud Foilpak) 1 ea TOP Q4 PRN PRN Reason: Other - Labs Labs: 02/18/17 07:00 02/18/17 07:00 PT 12.0 Seconds (9.9-11.8) H 02/16/17 08:55 INR 1.11 (0.93-1.08) H 02/16/17 08:55 APTT 24.7 Seconds (23.7-30.8) 02/16/17 08:55 - Constitutional Appears: Non-toxic, No Acute Distress - Head Exam Head Exam: NORMAL INSPECTION - ENT Exam ENT Exam: Mucous Membranes Moist - Neck Exam Neck Exam: absent: Lymphadenopathy, Meningismus - Respiratory Exam Respiratory Exam: Decreased Breath Sounds - Cardiovascular Exam Cardiovascular Exam: +S1, +S2 - GI/Abdominal Exam GI & Abdominal Exam: Soft. absent: Tenderness Assessment and Plan - Assessment and Plan (Free Text) Plan: Assessment Intra-abdominal abscess history of enterocutaneous fistula with associated areas of phlegmon and microabscesses, previously grew Vancomycin-resistant Enterococcus faecium from , growing gram positive cocci and yeast from 11/27, in a patient with poorly- controlled Crohn's disease, now growing VRE again Plan continue Zyvox, Zosyn and Diflucan - discussed with Dr. Ayoub Will continue to follow clinically while the patient is in the hospital
--- NOTE | 2017-02-19 00:43 | PN ---
DATE: 02/18/2017 SUBJECTIVE: This patient was seen and evaluated earlier. The patient is still complaining of abdomi nal pain mainly on the right side. PHYSICAL EXAMINATION: VITAL SIGNS: Temperature is 99, blood pressure 116/96, pulse is 95, respirations 20, O2 saturation 1 00%. HEENT: Atraumatic, anicteric. NECK: Supple. HEART: S1, S2 heard. LUNGS: Bilateral air entry present. ABDOMEN: Soft. There are multiple small fistulous opening seen. There is a dressing covering the r ight side noticed. The patient has significant tenderness on the right side. EXTREMITIES: No edema, no cyanosis. LABORATORY DATA: Hemoglobin 8.6, hematocrit 27.7, WBC 10.7, platelets . Chemistry is essential ly unremarkable. IMPRESSION: This is a 21-year-old patient with Crohn's disease who was on Remicade, which has been o n hold because of an abscess, intraabdominal infection. The patient is on IV antibiotics. The last dose he had was more than a month ago of the Remicade. The repeat CT scan shows collection in the ri ght side of the abdomen. I have requested IR evaluation for possible drainage. The real concern is persistence of increasing pain despite of being on antibiotics and with collection. Would bene fit from IR, CT-guided drainage. I agree with the decision. The patient has been followed up by before and now the patient wants to follow up at the [place]. I agree with the decision to the antibiotics until the active infected process is resolved. The patient is also anemic. F ollowup of the hemoglobin and hematocrit. The patient may need a workup for that. We need to review the previous records from . Presently, the patient has an appointment to be followed up at the [place] where he wants to continue the long-term management, which I agree. At the moment, h is care has been fragmented in this patient with a complex inflammatory bowel disease. Thank you very much for allowing us to participate in the care of the patient. Teofilo Sanders MD cc: [id number] TT: 02/19/2017 00:41:57 Confirmation # [id number] Dictation # [id number] mn
[2017-02-19] MEDS: Piperacillin/Tazobact 3.375 gm 100 ML IVPB SCH ×6 (01:20→23:01)
[2017-02-19] MEDS: Oxycodone/Acetaminophen 5/325 mg Tab PO PRN ×5 (01:21→23:01)
[2017-02-19] MEDS: Morphine 2 mg/ml ISec IVP PRN ×2 (02:18→06:31)
--- NOTE | 2017-02-19 08:27 | CP.PCM.PN ---
Subjective - Date & Time of Evaluation Date of Evaluation: 02/19/17 Time of Evaluation: 08:24 - Subjective Subjective: Surgery for Dr. Gonzalez Pt s&joseph BRUCE. C/o abd pain. No other complaints. Denies F/C/V. Low appetite but tolerating diet. + amb, + void Objective - Vital Signs/Intake and Output Vital Signs (last 24 hours): Temp Pulse Resp BP Pulse Ox 98.6 F 76 19 104/67 100 02/19/17 08:14 02/19/17 08:14 02/19/17 08:14 02/19/17 08:14 02/19/17 08:14 Intake and Output: 02/19/17 02/19/17 06:59 18:59 Intake Total 600 Balance 600 - Medications Medications: Current Medications Piperacillin Sod/Tazobactam Sod (Zosyn 3.375 In Ns 100ml) 100 mls @ 200 mls/hr IVPB Q6 [facility] PRN Reason: Protocol Stop: 02/25/17 18:01 Last Admin: 02/19/17 05:28 Dose: 200 mls/hr Fluconazole (Diflucan Iv 200 Mg/100 Ml Ns) 100 mls @ 100 mls/hr IVPB DAILY [facility] PRN Reason: Protocol Last Admin: 02/18/17 09:00 Dose: 100 mls/hr Linezolid (Zyvox) 600 mg PO BID [facility] PRN Reason: Protocol Stop: 02/24/17 10:01 Last Admin: 02/18/17 17:07 Dose: 600 mg Metronidazole (Flagyl) 500 mg PO TID [facility] PRN Reason: Protocol Last Admin: 02/18/17 17:07 Dose: 500 mg Morphine Sulfate (Morphine) 2 mg IVP Q4H PRN PRN Reason: pain, sever Last Admin: 02/19/17 06:31 Dose: 2 mg Ondansetron HCl (Zofran Tab) 4 mg PO Q6 PRN PRN Reason: Nausea/Vomiting Oxycodone/Acetaminophen (Percocet 5/325 Mg Tab) 1 tab PO Q8H PRN PRN Reason: Pain, moderate (4-7) Stop: 02/19/17 16:10 Last Admin: 02/19/17 01:21 Dose: 1 tab Pantoprazole Sodium (Protonix Ec Tab) 40 mg PO DAILY [facility] Last Admin: 02/18/17 08:59 Dose: 40 mg Vitamin A (Vitamin A & D Oint Ud Foilpak) 1 ea TOP Q4 PRN PRN Reason: Other - Labs Labs: 02/18/17 07:00 02/18/17 07:00 PT 12.0 Seconds (9.9-11.8) H 02/16/17 08:55 INR 1.11 (0.93-1.08) H 02/16/17 08:55 APTT 24.7 Seconds (23.7-30.8) 02/16/17 08:55 - Constitutional Appears: Non-toxic - Head Exam Head Exam: ATRAUMATIC, NORMAL INSPECTION, NORMOCEPHALIC - Eye Exam Eye Exam: EOMI, Normal appearance, PERRL Pupil Exam: NORMAL ACCOMODATION, PERRL - ENT Exam ENT Exam: Mucous Membranes Moist, Normal Exam - Neck Exam Neck Exam: Full ROM, Normal Inspection. absent: Lymphadenopathy - Cardiovascular Exam Cardiovascular Exam: REGULAR RHYTHM, +S1, +S2. absent: Murmur - GI/Abdominal Exam GI & Abdominal Exam: Soft, Tenderness. absent: Distended, Firm, Guarding, Diminished Bowel Sounds Additional comments: Ostomy in place, no signs of infection. multiple abscesses/fistula minimal purulent fluids. - Exam Exam: NORMAL INSPECTION - Extremities Exam Extremities Exam: Full ROM, Normal Capillary Refill, Normal Inspection. absent : Joint Swelling, Pedal Edema - Back Exam Back Exam: NORMAL INSPECTION - Neurological Exam Neurological Exam: Alert, Awake, CN II-XII Intact, Normal Gait, Oriented x3 - Skin Skin Exam: Dry, Normal Color, Warm. absent: Erythema Assessment and Plan - Assessment and Plan (Free Text) Assessment: 21 year old male with past medical history of Crohn's disease, vesicular cutaneous fistula, pain medication seeking behavior and iron deficiency anemia presents with right lower abdominal pain. Surgical consult was request to evaluate patient's right lower abdominal abscess found on CT scan. Plan: Right lower abdominal abscess -No surgical intervention indicated at this time -Topical vitamin A&D as skin protectant -GI recommends surgical intervention if not better with ABX -IV Antibiotic per ID -Will DW attending
[2017-02-19] MEDS: Pantoprazole 40 mg EC Tab PO SCH (09:00)
--- NOTE | 2017-02-19 11:21 | CP.PCM.PN ---
<Jame Jean Baptiste - Last Filed: 02/19/17 11:23> Subjective - Date & Time of Evaluation Date of Evaluation: 02/19/17 Time of Evaluation: 11:20 - Subjective Subjective: Medicine progress note. Attending: Dr. Kwan Pt seen/examined at bedside. No acute distress. No events overnight. Pt is not satisfied with pain medication regimen. No intervention from surgery. No fevers , chills, vomiting. Objective - Vital Signs/Intake and Output Vital Signs (last 24 hours): Temp Pulse Resp BP Pulse Ox 98.6 F 76 19 104/67 100 02/19/17 08:14 02/19/17 08:14 02/19/17 08:14 02/19/17 08:14 02/19/17 08:14 Intake and Output: 02/19/17 02/19/17 06:59 18:59 Intake Total 600 Balance 600 - Medications Medications: Current Medications Piperacillin Sod/Tazobactam Sod (Zosyn 3.375 In Ns 100ml) 100 mls @ 200 mls/hr IVPB Q6 [facility] PRN Reason: Protocol Stop: 02/25/17 18:01 Last Admin: 02/19/17 05:28 Dose: 200 mls/hr Fluconazole (Diflucan Iv 200 Mg/100 Ml Ns) 100 mls @ 100 mls/hr IVPB DAILY [facility] PRN Reason: Protocol Last Admin: 02/18/17 09:00 Dose: 100 mls/hr Linezolid (Zyvox) 600 mg PO BID [facility] PRN Reason: Protocol Stop: 02/24/17 10:01 Last Admin: 02/19/17 09:00 Dose: 600 mg Metronidazole (Flagyl) 500 mg PO TID [facility] PRN Reason: Protocol Last Admin: 02/19/17 09:00 Dose: 500 mg Morphine Sulfate (Morphine) 2 mg IVP Q4H PRN PRN Reason: pain, sever Last Admin: 02/19/17 06:31 Dose: 2 mg Ondansetron HCl (Zofran Tab) 4 mg PO Q6 PRN PRN Reason: Nausea/Vomiting Oxycodone/Acetaminophen (Percocet 5/325 Mg Tab) 2 tab PO Q6 PRN PRN Reason: Pain, moderate (4-7) Stop: 02/22/17 12:01 Last Admin: 02/19/17 11:03 Dose: 2 tab Pantoprazole Sodium (Protonix Ec Tab) 40 mg PO DAILY [facility] Last Admin: 02/19/17 09:00 Dose: 40 mg Vitamin A (Vitamin A & D Oint Ud Foilpak) 1 ea TOP Q4 PRN PRN Reason: Other - Labs Labs: 02/18/17 07:00 02/18/17 07:00 PT 12.0 Seconds (9.9-11.8) H 02/16/17 08:55 INR 1.11 (0.93-1.08) H 02/16/17 08:55 APTT 24.7 Seconds (23.7-30.8) 02/16/17 08:55 - Constitutional Appears: Non-toxic, No Acute Distress - Head Exam Head Exam: ATRAUMATIC, NORMAL INSPECTION, NORMOCEPHALIC - Eye Exam Eye Exam: EOMI - ENT Exam ENT Exam: Mucous Membranes Moist - Neck Exam Neck Exam: Full ROM, Normal Inspection - Respiratory Exam Respiratory Exam: NORMAL BREATHING PATTERN. absent: Respiratory Distress - Cardiovascular Exam Cardiovascular Exam: +S1, +S2 - GI/Abdominal Exam GI & Abdominal Exam: Soft, Normal Bowel Sounds. absent: Tenderness Additional comments: Multiple abscesses/fistula minimal purulent drainage. - Extremities Exam Extremities Exam: Full ROM, Normal Inspection - Neurological Exam Neurological Exam: Alert, Awake, Oriented x3 - Psychiatric Exam Psychiatric exam: Normal Affect, Normal Mood - Skin Skin Exam: Dry, Intact, Normal Color, Warm Assessment and Plan - Assessment and Plan (Free Text) Assessment: This is a 21 yo male with past medical hx of Crohn's and drug seeking behavior presents with lower abdominal pain, fistula and abscess. 1. 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 Dr. Wang. recs appreciated. -continue zyvox, diflucan, flagyl, zosyn -surgery consult Cont IV abx no surgical intervention at this time -f/u IR regarding drainage -no drainage possible at this time -CT scan abdomen/pelvis shows 2.4 x 3.4 cm abscess in right abdominal wall -cultures negative so far -pt has picc in place -pending insurance approval for abx -f/u am labs 2. Chronic pain -pt continuously requesting pain meds - Increased morphine 1mg-->2mg >> morphine placed on hold -percocet increased to 2 q 6 3. hypokalemia -repleted with K -will f/u and continue to monitor 4. GI/DVT ppx -protonix -SCDs Case and plan was seen, reviewed and discussed in detail with Dr Kwan. <Emir Kwan - Last Filed: 02/20/17 08:56> Objective - Vital Signs/Intake and Output Vital Signs (last 24 hours): Temp Pulse Resp BP Pulse Ox 98.6 F 88 20 105/70 100 02/20/17 08:21 02/20/17 08:21 02/20/17 08:21 02/20/17 08:21 02/20/17 08:21 Intake and Output: 02/20/17 02/20/17 06:59 18:59 Intake Total 1440 Output Total 1500 Balance -60 - Medications Medications: Current Medications Piperacillin Sod/Tazobactam Sod (Zosyn 3.375 In Ns 100ml) 100 mls @ 200 mls/hr IVPB Q6 [facility] PRN Reason: Protocol Stop: 02/25/17 18:01 Last Admin: 02/20/17 05:12 Dose: 200 mls/hr Fluconazole (Diflucan Iv 200 Mg/100 Ml Ns) 100 mls @ 100 mls/hr IVPB DAILY [facility] PRN Reason: Protocol Last Admin: 02/19/17 13:39 Dose: 100 mls/hr Linezolid (Zyvox) 600 mg PO BID [facility] PRN Reason: Protocol Stop: 02/24/17 10:01 Last Admin: 02/19/17 17:05 Dose: 600 mg Metronidazole (Flagyl) 500 mg PO TID [facility] PRN Reason: Protocol Last Admin: 02/19/17 17:06 Dose: 500 mg Morphine Sulfate (Morphine) 2 mg IVP Q4H PRN PRN Reason: pain, sever Last Admin: 02/19/17 06:31 Dose: 2 mg Ondansetron HCl (Zofran Tab) 4 mg PO Q6 PRN PRN Reason: Nausea/Vomiting Oxycodone/Acetaminophen (Percocet 5/325 Mg Tab) 2 tab PO Q6 PRN PRN Reason: Pain, moderate (4-7) Stop: 02/22/17 12:01 Last Admin: 02/20/17 05:11 Dose: 2 tab Pantoprazole Sodium (Protonix Ec Tab) 40 mg PO DAILY [facility] Last Admin: 02/19/17 09:00 Dose: 40 mg Vitamin A (Vitamin A & D Oint Ud Foilpak) 1 ea TOP Q4 PRN PRN Reason: Other - Labs Labs: 02/20/17 06:00 02/20/17 06:00 PT 12.0 Seconds (9.9-11.8) H 02/16/17 08:55 INR 1.11 (0.93-1.08) H 02/16/17 08:55 APTT 24.7 Seconds (23.7-30.8) 02/16/17 08:55 Attending/Attestation - Attestation I have personally seen and examined this patient.: Yes I have fully participated in the care of the patient.: Yes I have reviewed all pertinent clinical information, including history, physical exam and plan: Yes Notes (Text): 02/19/17 21 year old male with past medical history of Crohn's disease, 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 He was recently discharged from [facility] after abscess drainage and also reported recently finishing antibiotics. CT scan was reviewed as above; no drainable collection as per IR. Surgery and ID are following. Continue with antibiotics as above. property utilization manager notes were reviewed regarding home infusion therapy. Will follow up with continuous pillowcase cutter tomorrow for discharge plan. He has history of opioid dependency on chronic opioids. He complains of chronic pain but appears comfortable in bed. He was counselled on risks of narcotic abuse. His pain regimen has been changed to percocet 2 tabs q6h prn. Upon discharge patient will be referred back to colorectal surgery at [facility]. Emir Kwan MD Hospitalist.
[2017-02-19] MEDS ORDERED: Oxycodone/Acetaminophen 5/325 mg Tab PO SCH (12:00)
[2017-02-19] MEDS: Fluconazole IV 200mg/100 ml NS 100 ML IVPB SCH (13:39)
--- NOTE | 2017-02-19 17:01 | PN ---
DATE: 02/19/2017 ADDENDUM This is an addendum to the GI progress report. This patient was seen and evaluated earlier today. The patient is feeling slightly better now. PHYSICAL EXAMINATION: VITAL SIGNS: Temperature is 98.6, pulse 76, blood pressure 104/67 HEENT: Atraumatic, anicteric. NECK: Supple. HEART: S1, S2 heard. LUNGS: Bilateral air entry present. ABDOMEN: Soft. There is a dressing present on the right side covering the fistulous opening. There is tenderness present in the right side of the abdomen. There is no rebound or guarding. IMPRESSION: This 21-year-old patient complaining of Crohn's disease. He is admitted with an intra-ab dominal abscess. Worsening of the pain in the right side. The patient was on Remicade in the past a nd the last dose was more than a month. The present plan is to get an IR to evaluate whether is a dr ainable collection. If it is not drainable, the patient will need to continue the antibiotics. The patient has an appointment to be followed up with the [facility]. The patient is not a cand idate for any biological therapy in the presence of this active infection. The priority now is to con trol the infective process. I also discussed with Dr. Cleveland earlier today, the infectious disease spe cialist. Thank you very much for allowing us to participate in the care of the patient. Teofilo Sanders MD cc: [id number] TT: 02/19/2017 17:00:58 Confirmation # [id number] Dictation # [id number]
[2017-02-20] MEDS: Oxycodone/Acetaminophen 5/325 mg Tab PO PRN ×4 (05:11→22:58)
[2017-02-20] MEDS: Piperacillin/Tazobact 3.375 gm 100 ML IVPB SCH ×4 (05:12→23:00)
[2017-02-20 07:15] LABS: ADD MANUAL DIFF? NO
[2017-02-20 07:24] LABS: BASO # 0.01 K/mm3 (0.0-2.0); BASO % 0.1 % (0.0-3.0); EOS # 0.2 (0.0-0.7); EOS % 2.5 % (1.5-5.0); GRAN # 7.33 (1.4-6.5); GRAN % 79.1 % (50.0-68.0); HEMATOCRIT 27.4 % (42.0-52.0); LYMPH # 0.8 (1.2-3.4); LYMPH % 9.1 % (22.0-35.0); MEAN CELL VOLUME 74.5 fL (80.0-105.0); MEAN CORPUSCULAR HEMOGLOBIN 22.8 pg (25.0-35.0); MEAN CORPUSCULAR HGB CONC 30.7 g/dl (31.0-37.0); MONO # 0.9 (0.1-0.6); MONO % 9.2 % (1.0-6.0); PLATELET COUNT 537 10^3/uL (120.0-450.0); RED CELL DISTRIBUTION WIDTH 21.5 % (11.5-14.5); WHITE BLOOD COUNT 9.3 10^3/ul (4.5-11.0)
[2017-02-20 07:35] LABS: ALB/GLOB RATIO 0.9 (1.1-1.8); ALKALINE PHOSPHATASE 79 U/L (38-133); ALT/SGPT 26 U/L (7-56); AST/SGOT 29 U/L (15-59); BILIRUBIN,TOTAL 0.2 mg/dL (0.2-1.3); BLOOD UREA NITROGEN 5 mg/dL (7-21); CALCIUM 8.7 mg/dL (8.4-10.5); CARBON DIOXIDE 28 mmol/L (21-33); CHLORIDE 100 mmol/L (95-110); GFR AFRICAN-AMERICAN > 60; GLUCOSE,RANDOM 98 mg/dL (70-110); PHOSPHOROUS 4.3 mg/dL (2.5-4.5); POTASSIUM 3.9 mmol/L (3.6-5.0); SODIUM 136 mmol/L (132-148); TOTAL PROTEIN 7.2 g/dL (5.8-8.3)
[2017-02-20] MEDS: Pantoprazole 40 mg EC Tab PO SCH (09:18)
[2017-02-20] MEDS: Fluconazole IV 200mg/100 ml NS 100 ML IVPB SCH (09:18)
--- NOTE | 2017-02-20 09:25 | CP.PCM.PN ---
Subjective - Date & Time of Evaluation Date of Evaluation: 02/20/17 Time of Evaluation: 07:00 - Subjective Subjective: General Surgery Progress Note for Dr. Gonzalez Patient seen and examined at bedside. No acute events overnight. Patient still complains of pain, requesting more pain medication. Patient is ambulating and tolerating diet. Denies headache, fever, chills, shortness of breath, chest pain , nausea, or vomiting. Objective - Vital Signs/Intake and Output Vital Signs (last 24 hours): Temp Pulse Resp BP Pulse Ox 98.6 F 88 20 105/70 100 02/20/17 08:21 02/20/17 08:21 02/20/17 08:21 02/20/17 08:21 02/20/17 08:21 Intake and Output: 02/20/17 02/20/17 06:59 18:59 Intake Total 1440 Output Total 1500 Balance -60 - Medications Medications: Current Medications Piperacillin Sod/Tazobactam Sod (Zosyn 3.375 In Ns 100ml) 100 mls @ 200 mls/hr IVPB Q6 BRYANT PRN Reason: Protocol Stop: 02/25/17 18:01 Last Admin: 02/20/17 05:12 Dose: 200 mls/hr Fluconazole (Diflucan Iv 200 Mg/100 Ml Ns) 100 mls @ 100 mls/hr IVPB DAILY BRYANT PRN Reason: Protocol Last Admin: 02/19/17 13:39 Dose: 100 mls/hr Linezolid (Zyvox) 600 mg PO BID BRYANT PRN Reason: Protocol Stop: 02/24/17 10:01 Last Admin: 02/19/17 17:05 Dose: 600 mg Metronidazole (Flagyl) 500 mg PO TID BRYANT PRN Reason: Protocol Last Admin: 02/19/17 17:06 Dose: 500 mg Morphine Sulfate (Morphine) 2 mg IVP Q4H PRN PRN Reason: pain, sever Last Admin: 02/19/17 06:31 Dose: 2 mg Ondansetron HCl (Zofran Tab) 4 mg PO Q6 PRN PRN Reason: Nausea/Vomiting Oxycodone/Acetaminophen (Percocet 5/325 Mg Tab) 2 tab PO Q6 PRN PRN Reason: Pain, moderate (4-7) Stop: 02/22/17 12:01 Last Admin: 02/20/17 05:11 Dose: 2 tab Pantoprazole Sodium (Protonix Ec Tab) 40 mg PO DAILY BRYANT Last Admin: 02/19/17 09:00 Dose: 40 mg Vitamin A (Vitamin A & D Oint Ud Foilpak) 1 ea TOP Q4 PRN PRN Reason: Other - Labs Labs: 02/20/17 06:00 02/20/17 06:00 PT 12.0 Seconds (9.9-11.8) H 02/16/17 08:55 INR 1.11 (0.93-1.08) H 02/16/17 08:55 APTT 24.7 Seconds (23.7-30.8) 02/16/17 08:55 - Constitutional Appears: Non-toxic, No Acute Distress - Head Exam Head Exam: ATRAUMATIC, NORMAL INSPECTION - Eye Exam Eye Exam: EOMI, Normal appearance - ENT Exam ENT Exam: Mucous Membranes Moist - Neck Exam Neck Exam: Normal Inspection - Respiratory Exam Respiratory Exam: absent: Respiratory Distress - Cardiovascular Exam Cardiovascular Exam: +S1, +S2 - GI/Abdominal Exam GI & Abdominal Exam: Soft, Tenderness Additional comments: Three abdominal fistula located at RLQ draining yellow color fluid. Dressing changed with sterile gauze x3. Diffused tenderness to the touch. - Extremities Exam Extremities Exam: Full ROM, Normal Capillary Refill - Neurological Exam Neurological Exam: Alert, Awake, Oriented x3 - Psychiatric Exam Psychiatric exam: Normal Affect, Normal Mood - Skin Skin Exam: Warm Assessment and Plan - Assessment and Plan (Free Text) Assessment: 21 year old male with past medical history of Crohn's disease, vesicular cutaneous fistula, pain medication seeking behavior and iron deficiency anemia presents with right lower abdominal pain. Surgical consult was request to evaluate patient's right lower abdominal abscess found on CT scan. Plan: Right lower abdominal abscess -No surgical intervention indicated at this time -Topical vitamin A&D as skin protectant -GI recommends IR evaluation -Continue IV Antibiotic per ID -D/w attending Dr. Gonzalez
--- NOTE | 2017-02-20 12:06 | CP.PCM.PN ---
<Jame Jean Baptiste - Last Filed: 02/20/17 12:06> Subjective - Date & Time of Evaluation Date of Evaluation: 02/20/17 Time of Evaluation: 12:00 - Subjective Subjective: Medicine progress note. Attending: Dr. Kwan Pt seen and examined at bedside. No acute distress. Lying in bed, does not appear to be in pain. No fevers, chills, sob, syncope. Pending discharge planning. Objective - Vital Signs/Intake and Output Vital Signs (last 24 hours): Temp Pulse Resp BP Pulse Ox 98.6 F 88 20 105/70 100 02/20/17 08:21 02/20/17 08:21 02/20/17 08:21 02/20/17 08:21 02/20/17 08:21 Intake and Output: 02/20/17 02/20/17 06:59 18:59 Intake Total 1440 Output Total 1500 Balance -60 - Medications Medications: Current Medications Piperacillin Sod/Tazobactam Sod (Zosyn 3.375 In Ns 100ml) 100 mls @ 200 mls/hr IVPB Q6 BRYANT PRN Reason: Protocol Stop: 02/25/17 18:01 Last Admin: 02/20/17 05:12 Dose: 200 mls/hr Fluconazole (Diflucan Iv 200 Mg/100 Ml Ns) 100 mls @ 100 mls/hr IVPB DAILY BRYANT PRN Reason: Protocol Last Admin: 02/20/17 09:18 Dose: 100 mls/hr Linezolid (Zyvox) 600 mg PO BID BRYANT PRN Reason: Protocol Stop: 02/24/17 10:01 Last Admin: 02/20/17 09:18 Dose: 600 mg Metronidazole (Flagyl) 500 mg PO TID BRYANT PRN Reason: Protocol Last Admin: 02/20/17 09:18 Dose: 500 mg Morphine Sulfate (Morphine) 2 mg IVP Q4H PRN PRN Reason: pain, sever Last Admin: 02/19/17 06:31 Dose: 2 mg Ondansetron HCl (Zofran Tab) 4 mg PO Q6 PRN PRN Reason: Nausea/Vomiting Oxycodone/Acetaminophen (Percocet 5/325 Mg Tab) 2 tab PO Q6 PRN PRN Reason: Pain, moderate (4-7) Stop: 02/22/17 12:01 Last Admin: 02/20/17 11:01 Dose: 2 tab Pantoprazole Sodium (Protonix Ec Tab) 40 mg PO DAILY BRYANT Last Admin: 02/20/17 09:18 Dose: 40 mg Vitamin A (Vitamin A & D Oint Ud Foilpak) 1 ea TOP Q4 PRN PRN Reason: Other - Labs Labs: 02/20/17 06:00 02/20/17 06:00 PT 12.0 Seconds (9.9-11.8) H 02/16/17 08:55 INR 1.11 (0.93-1.08) H 02/16/17 08:55 APTT 24.7 Seconds (23.7-30.8) 02/16/17 08:55 - Constitutional Appears: Non-toxic, No Acute Distress - Head Exam Head Exam: ATRAUMATIC, NORMAL INSPECTION, NORMOCEPHALIC - Eye Exam Eye Exam: EOMI - ENT Exam ENT Exam: Mucous Membranes Moist - Neck Exam Neck Exam: Full ROM, Normal Inspection - Respiratory Exam Respiratory Exam: NORMAL BREATHING PATTERN. absent: Respiratory Distress - Cardiovascular Exam Cardiovascular Exam: +S1, +S2 - GI/Abdominal Exam GI & Abdominal Exam: Soft, Tenderness, Normal Bowel Sounds Additional comments: Cutaneous fistula, minimal drainage, erythema - Extremities Exam Extremities Exam: Full ROM, Normal Inspection - Back Exam Back Exam: NORMAL INSPECTION - Neurological Exam Neurological Exam: Alert, Awake, Oriented x3 - Psychiatric Exam Psychiatric exam: Normal Affect, Normal Mood - Skin Skin Exam: Dry, Intact, Normal Color, Warm Assessment and Plan - Assessment and Plan (Free Text) Assessment: This is a 21 yo male with past medical hx of Crohn's and drug seeking behavior presents with lower abdominal pain, fistula and abscess. 1. 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 Dr. Wang. recs appreciated. -continue zyvox, diflucan, flagyl, zosyn -surgery consult Cont IV abx no surgical intervention at this time -f/u IR regarding drainage -no drainage possible at this time -CT scan abdomen/pelvis shows 2.4 x 3.4 cm abscess in right abdominal wall -cultures negative so far -pt has picc in place -pending discharge planning; previous infusion center is not accepting him -f/u am labs 2. Chronic pain -pt continuously requesting pain meds - Increased morphine 1mg-->2mg >> morphine placed on hold -percocet increased to 2 q 6 3. hypokalemia -repleted with K -will f/u and continue to monitor 4. GI/DVT ppx -protonix -SCDs Dispo: will f/u with residential case manager regarding infusion of abx. Case and plan was seen, reviewed and discussed in detail with Dr Kwan. <Emir Kwan - Last Filed: 02/20/17 17:11> Objective - Vital Signs/Intake and Output Vital Signs (last 24 hours): Temp Pulse Resp BP Pulse Ox 99.3 F 94 H 20 97/60 L 100 02/20/17 16:00 02/20/17 16:00 02/20/17 16:00 02/20/17 16:00 02/20/17 16:00 Intake and Output: 02/20/17 02/20/17 06:59 18:59 Intake Total 1440 1250 Output Total 1500 Balance -60 1250 - Medications Medications: Current Medications Piperacillin Sod/Tazobactam Sod (Zosyn 3.375 In Ns 100ml) 100 mls @ 200 mls/hr IVPB Q6 BRYANT PRN Reason: Protocol Stop: 02/25/17 18:01 Last Admin: 02/20/17 13:17 Dose: 200 mls/hr Fluconazole (Diflucan Iv 200 Mg/100 Ml Ns) 100 mls @ 100 mls/hr IVPB DAILY BRYANT PRN Reason: Protocol Last Admin: 02/20/17 09:18 Dose: 100 mls/hr Linezolid (Zyvox) 600 mg PO BID BRYANT PRN Reason: Protocol Stop: 02/24/17 10:01 Last Admin: 02/20/17 09:18 Dose: 600 mg Metronidazole (Flagyl) 500 mg PO TID BRYANT PRN Reason: Protocol Last Admin: 02/20/17 13:17 Dose: 500 mg Morphine Sulfate (Morphine) 2 mg IVP Q4H PRN PRN Reason: pain, sever Last Admin: 02/19/17 06:31 Dose: 2 mg Ondansetron HCl (Zofran Tab) 4 mg PO Q6 PRN PRN Reason: Nausea/Vomiting Oxycodone/Acetaminophen (Percocet 5/325 Mg Tab) 2 tab PO Q6 PRN PRN Reason: Pain, moderate (4-7) Stop: 02/22/17 12:01 Last Admin: 02/20/17 16:52 Dose: 2 tab Pantoprazole Sodium (Protonix Ec Tab) 40 mg PO DAILY BRYANT Last Admin: 02/20/17 09:18 Dose: 40 mg Vitamin A (Vitamin A & D Oint Ud Foilpak) 1 ea TOP Q4 PRN PRN Reason: Other - Labs Labs: 02/20/17 06:00 02/20/17 06:00 PT 12.0 Seconds (9.9-11.8) H 02/16/17 08:55 INR 1.11 (0.93-1.08) H 02/16/17 08:55 APTT 24.7 Seconds (23.7-30.8) 02/16/17 08:55 Attending/Attestation - Attestation I have personally seen and examined this patient.: Yes I have fully participated in the care of the patient.: Yes I have reviewed all pertinent clinical information, including history, physical exam and plan: Yes Notes (Text): 02/20/17 17:09 21 year old male with past medical history of Crohn's disease, 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 He was recently discharged from [facility] after abscess drainage and also reported recently finishing antibiotics. CT scan was reviewed as above; no drainable collection as per IR. Surgery and ID are following. Continue with iv antibiotics. Pending d/c planning; however his prior infusion company is not accepting him. Will discuss with case management assistant. He has history of opioid dependency on chronic opioids. He was counselled on risks of narcotic abuse. He is on percocet prn. He will need to follow up with pain management as outpatient. Upon discharge patient will be referred back to colorectal surgery at [facility]. Emir Kwan MD Hospitalist.
--- NOTE | 2017-02-20 15:37 | PN ---
DATE: 02/20/2017 Seen and examined at the bedside. Earlier today, patient still having right upper quadrant pain. No reports of nausea or vomiting. The patient tolerating oral intake. No acute overnight events repor laure. VITAL SIGNS: Temperature 98.6, blood pressure 105/70, pulse 88, respirations 20, 100% on room air. LABORATORIES: WBC is 9.3, H and H is 8.4 and 27.4, platelets are 537. Sodium is 136, K 3.9, BUN 5, creatinine 0.8. LFTs are within normal limits. Abdominal stain is positive for gram-negative rods. PHYSICAL EXAMINATION: HEENT: Sclera is anicteric. NECK: Supple. CARDIAC: S1, S2. LUNG SOUNDS: With decreased breath sounds, but good air entry. No rales or wheeze. ABDOMEN: With bowel sounds, soft, positive tenderness, no rebound or guarding. The patient with cut aneous fistula, minimal drainage and erythema. ASSESSMENT: This is a 21-year-old male with a past medical history of Crohn's disease. Came with l ower abdominal pain, has fistula and abscess, hypokalemia. The patient was on Remicade in the past a nd last treatment was more than a month ago. PLAN: Request for IR to evaluate if this abscess has a drainable collection. The patient does have an appointment to be followed up at [facility]. The patient currently not candidate for any biological therapy in the presence of active infection. Continue diet as tolerated. The patient is also being followed by ID, is on IV antibiotics. Continue GI prophylaxis, on Protonix. The patient was seen and case discussed with Dr. Sanders. Lashanda DAVE cc: [id number] TT: 02/20/2017 15:37:09 Confirmation # [id number] Dictation # [id number] en
--- NOTE | 2017-02-20 19:16 | CP.PCM.PN ---
Subjective - Date & Time of Evaluation Date of Evaluation: 02/20/17 Time of Evaluation: 11:50 - Subjective Subjective: Still with abdominal pain and still with drainage on the right lower abdominal area. No fevers overnight. Objective - Vital Signs/Intake and Output Vital Signs (last 24 hours): Temp Pulse Resp BP Pulse Ox 99.3 F 94 H 20 97/60 L 100 02/20/17 16:00 02/20/17 16:00 02/20/17 16:00 02/20/17 16:00 02/20/17 16:00 Intake and Output: 02/20/17 02/21/17 18:59 06:59 Intake Total 1250 Balance 1250 - Medications Medications: Current Medications Piperacillin Sod/Tazobactam Sod (Zosyn 3.375 In Ns 100ml) 100 mls @ 200 mls/hr IVPB Q6 BRYANT PRN Reason: Protocol Stop: 02/25/17 18:01 Last Admin: 02/20/17 17:34 Dose: 200 mls/hr Fluconazole (Diflucan Iv 200 Mg/100 Ml Ns) 100 mls @ 100 mls/hr IVPB DAILY BRYANT PRN Reason: Protocol Last Admin: 02/20/17 09:18 Dose: 100 mls/hr Linezolid (Zyvox) 600 mg PO BID BRYANT PRN Reason: Protocol Stop: 02/24/17 10:01 Last Admin: 02/20/17 17:34 Dose: 600 mg Metronidazole (Flagyl) 500 mg PO TID BRYANT PRN Reason: Protocol Last Admin: 02/20/17 17:34 Dose: 500 mg Morphine Sulfate (Morphine) 2 mg IVP Q4H PRN PRN Reason: pain, sever Last Admin: 02/19/17 06:31 Dose: 2 mg Ondansetron HCl (Zofran Tab) 4 mg PO Q6 PRN PRN Reason: Nausea/Vomiting Oxycodone/Acetaminophen (Percocet 5/325 Mg Tab) 2 tab PO Q6 PRN PRN Reason: Pain, moderate (4-7) Stop: 02/22/17 12:01 Last Admin: 02/20/17 16:52 Dose: 2 tab Pantoprazole Sodium (Protonix Ec Tab) 40 mg PO DAILY [facility] Last Admin: 02/20/17 09:18 Dose: 40 mg Vitamin A (Vitamin A & D Oint Ud Foilpak) 1 ea TOP Q4 PRN PRN Reason: Other - Labs Labs: 02/20/17 06:00 02/20/17 06:00 PT 12.0 Seconds (9.9-11.8) H 02/16/17 08:55 INR 1.11 (0.93-1.08) H 02/16/17 08:55 APTT 24.7 Seconds (23.7-30.8) 02/16/17 08:55 - Constitutional Appears: Non-toxic, No Acute Distress - Head Exam Head Exam: NORMAL INSPECTION - Neck Exam Neck Exam: absent: Meningismus - Respiratory Exam Respiratory Exam: Decreased Breath Sounds - Cardiovascular Exam Cardiovascular Exam: +S1, +S2 - GI/Abdominal Exam GI & Abdominal Exam: Soft. absent: Tenderness Assessment and Plan - Assessment and Plan (Free Text) Plan: Assessment Intra-abdominal abscess history of enterocutaneous fistula with associated areas of phlegmon and microabscesses, previously grew Vancomycin-resistant Enterococcus faecium from , growing gram positive cocci and yeast from 11/27, in a patient with poorly- controlled Crohn's disease, now growing VRE again Plan continue Zyvox, Zosyn and Diflucan - discussed with Dr. Ayoub - should have formal evaluation by interventional Radiology to see if abscess can be drained Will continue to follow clinically while the patient is in the hospital
[2017-02-21] MEDS: Piperacillin/Tazobact 3.375 gm 100 ML IVPB SCH ×4 (05:13→23:32)
[2017-02-21] MEDS: Oxycodone/Acetaminophen 5/325 mg Tab PO PRN ×2 (05:13→12:49)
--- NOTE | 2017-02-21 08:44 | PN ---
DATE: 02/20/2017 ADDENDUM This is an addendum to the GI progress report dictated by Lashanda Parikh APN. The patient is still com plaining of pain in the right side of the abdomen. The patient was evaluated by IR and the recommend ation was no drainable collection noticed. The plan is to continue the antibiotics. The patient is due to have followup at the [facility]. We will hold off treating anything ____ at the pres ent time in the present setting of an active infection. We will continue the PPI prophylaxis. This is an addendum to the GI progress report dictated by Lashanda Parikh APN. Teofilo Sanders MD cc: [id number] TT: 02/20/2017 20:18:43 Confirmation # [id number] Dictation # [id number] [email or web address]
[2017-02-21 09:04] LABS: ADD MANUAL DIFF? NO
[2017-02-21 09:06] LABS: BASO # 0.02 K/mm3 (0.0-2.0); BASO % 0.2 % (0.0-3.0); EOS # 0.2 (0.0-0.7); EOS % 2.1 % (1.5-5.0); GRAN # 7.32 (1.4-6.5); GRAN % 72.3 % (50.0-68.0); HEMATOCRIT 29.1 % (42.0-52.0); LYMPH # 1.7 (1.2-3.4); LYMPH % 16.5 % (22.0-35.0); MEAN CELL VOLUME 74.4 fL (80.0-105.0); MEAN CORPUSCULAR HGB CONC 30.9 g/dl (31.0-37.0); MEAN PLATELET VOLUME 7.7 fl (7.0-11.0); MONO # 0.9 (0.1-0.6); MONO % 8.9 % (1.0-6.0); PLATELET COUNT 513 10^3/uL (120.0-450.0); RED CELL DISTRIBUTION WIDTH 20.9 % (11.5-14.5); WHITE BLOOD COUNT 10.1 10^3/ul (4.5-11.0)
[2017-02-21 09:21] LABS: ALB/GLOB RATIO 0.9 (1.1-1.8); ALKALINE PHOSPHATASE 82 U/L (38-133); ALT/SGPT 26 U/L (7-56); AST/SGOT 34 U/L (15-59); BILIRUBIN,TOTAL 0.4 mg/dL (0.2-1.3); BLOOD UREA NITROGEN 5 mg/dL (7-21); CARBON DIOXIDE 29 mmol/L (21-33); GFR AFRICAN-AMERICAN > 60; GLUCOSE,RANDOM 80 mg/dL (70-110); MAGNESIUM 1.9 mg/dL (1.7-2.2); PHOSPHOROUS 4.6 mg/dL (2.5-4.5); POTASSIUM 3.9 mmol/L (3.6-5.0); SODIUM 135 mmol/L (132-148); TOTAL PROTEIN 7.4 g/dL (5.8-8.3)
--- NOTE | 2017-02-21 09:22 | CP.PCM.PN ---
Subjective - Date & Time of Evaluation Date of Evaluation: 02/21/17 Time of Evaluation: 07:40 - Subjective Subjective: General Surgery Progress Note for Dr. Gonzalez Patient seen and examined at bedside. No acute events overnight. Patient continues to complain about this pain medication is not enough. Patient reports he takes "30mg of oxy every 4 to 6 hours". Patient states he would rather go to another hospital and get treated there. Patient continues to have yellow drainage coming out of his abdominal fistula. Otherwise patient has no other complains. Objective - Vital Signs/Intake and Output Vital Signs (last 24 hours): Temp Pulse Resp BP Pulse Ox 98.4 F 63 17 97/54 L 100 02/21/17 06:00 02/21/17 06:00 02/21/17 06:00 02/21/17 06:00 02/21/17 06:00 Intake and Output: 02/21/17 02/21/17 06:59 18:59 Intake Total 720 Balance 720 - Medications Medications: Current Medications Piperacillin Sod/Tazobactam Sod (Zosyn 3.375 In Ns 100ml) 100 mls @ 200 mls/hr IVPB Q6 BRYANT PRN Reason: Protocol Stop: 02/25/17 18:01 Last Admin: 02/21/17 05:13 Dose: 200 mls/hr Fluconazole (Diflucan Iv 200 Mg/100 Ml Ns) 100 mls @ 100 mls/hr IVPB DAILY BRYANT PRN Reason: Protocol Last Admin: 02/20/17 09:18 Dose: 100 mls/hr Linezolid (Zyvox) 600 mg PO BID BRYANT PRN Reason: Protocol Stop: 02/24/17 10:01 Last Admin: 02/20/17 17:34 Dose: 600 mg Metronidazole (Flagyl) 500 mg PO TID BRYANT PRN Reason: Protocol Last Admin: 02/20/17 17:34 Dose: 500 mg Morphine Sulfate (Morphine) 2 mg IVP Q4H PRN PRN Reason: pain, sever Last Admin: 02/19/17 06:31 Dose: 2 mg Ondansetron HCl (Zofran Tab) 4 mg PO Q6 PRN PRN Reason: Nausea/Vomiting Oxycodone/Acetaminophen (Percocet 5/325 Mg Tab) 2 tab PO Q6 PRN PRN Reason: Pain, moderate (4-7) Stop: 02/22/17 12:01 Last Admin: 02/21/17 05:13 Dose: 2 tab Pantoprazole Sodium (Protonix Ec Tab) 40 mg PO DAILY BRYANT Last Admin: 02/20/17 09:18 Dose: 40 mg Vitamin A (Vitamin A & D Oint Ud Foilpak) 1 ea TOP Q4 PRN PRN Reason: Other - Labs Labs: 02/21/17 08:00 02/20/17 06:00 PT 12.0 Seconds (9.9-11.8) H 02/16/17 08:55 INR 1.11 (0.93-1.08) H 02/16/17 08:55 APTT 24.7 Seconds (23.7-30.8) 02/16/17 08:55 - Constitutional Appears: Non-toxic, No Acute Distress - Head Exam Head Exam: ATRAUMATIC, NORMAL INSPECTION - Eye Exam Eye Exam: EOMI, Normal appearance - ENT Exam ENT Exam: Mucous Membranes Moist - Neck Exam Neck Exam: Normal Inspection - Respiratory Exam Respiratory Exam: absent: Respiratory Distress - Cardiovascular Exam Cardiovascular Exam: +S1, +S2 - GI/Abdominal Exam GI & Abdominal Exam: Tenderness Additional comments: Three abdominal fistula located at RLQ draining light yellow fluid. Dressing changed with sterile gauze x3 and surgical tape. Diffused tenderness to the touch. - Extremities Exam Extremities Exam: Normal Capillary Refill - Neurological Exam Neurological Exam: Alert, Awake, Oriented x3 - Psychiatric Exam Psychiatric exam: Normal Affect, Normal Mood - Skin Skin Exam: Warm Assessment and Plan - Assessment and Plan (Free Text) Assessment: 21 year old male with past medical history of Crohn's disease, vesicular cutaneous fistula, pain medication seeking behavior and iron deficiency anemia presents with right lower abdominal pain. Surgical consult was request to evaluate patient's right lower abdominal abscess found on CT scan. Plan: Right lower abdominal abscess -No surgical intervention indicated at this time -Topical vitamin A&D as skin protectant -IR recommends no drainable collection noticed -Continue IV Antibiotic per ID -D/w attending Dr. Gonzalez
[2017-02-21 09:27] LABS: CHLORIDE 99 mmol/L (95-110)
[2017-02-21] MEDS: Fluconazole IV 200mg/100 ml NS 100 ML IVPB SCH (10:53)
[2017-02-21] MEDS: Pantoprazole 40 mg EC Tab PO SCH (10:55)
--- NOTE | 2017-02-21 12:06 | CP.PCM.PN ---
<Jame Jean Baptiste - Last Filed: 02/21/17 12:07> Subjective - Date & Time of Evaluation Date of Evaluation: 02/21/17 Time of Evaluation: 12:05 - Subjective Subjective: Med progress note. Attending: Dr. Kwan Pt seen/examined at bedside. No acute distress. No events overnight. Pt constantly asking for pain medication, now asking for IV dilaudid. Objective - Vital Signs/Intake and Output Vital Signs (last 24 hours): Temp Pulse Resp BP Pulse Ox 98.4 F 63 17 97/54 L 100 02/21/17 06:00 02/21/17 06:00 02/21/17 06:00 02/21/17 06:00 02/21/17 06:00 Intake and Output: 02/21/17 02/21/17 06:59 18:59 Intake Total 720 Balance 720 - Medications Medications: Current Medications Piperacillin Sod/Tazobactam Sod (Zosyn 3.375 In Ns 100ml) 100 mls @ 200 mls/hr IVPB Q6 BRYANT PRN Reason: Protocol Stop: 02/25/17 18:01 Last Admin: 02/21/17 05:13 Dose: 200 mls/hr Fluconazole (Diflucan Iv 200 Mg/100 Ml Ns) 100 mls @ 100 mls/hr IVPB DAILY BRYANT PRN Reason: Protocol Last Admin: 02/21/17 10:53 Dose: 100 mls/hr Linezolid (Zyvox) 600 mg PO BID BRYANT PRN Reason: Protocol Stop: 02/24/17 10:01 Last Admin: 02/21/17 10:55 Dose: 600 mg Metronidazole (Flagyl) 500 mg PO TID BRYANT PRN Reason: Protocol Last Admin: 02/21/17 10:54 Dose: 500 mg Morphine Sulfate (Morphine) 2 mg IVP Q4H PRN PRN Reason: pain, sever Last Admin: 02/19/17 06:31 Dose: 2 mg Ondansetron HCl (Zofran Tab) 4 mg PO Q6 PRN PRN Reason: Nausea/Vomiting Oxycodone/Acetaminophen (Percocet 5/325 Mg Tab) 2 tab PO Q6 PRN PRN Reason: Pain, moderate (4-7) Stop: 02/22/17 12:01 Last Admin: 02/21/17 05:13 Dose: 2 tab Pantoprazole Sodium (Protonix Ec Tab) 40 mg PO DAILY BRYANT Last Admin: 02/21/17 10:55 Dose: 40 mg Vitamin A (Vitamin A & D Oint Ud Foilpak) 1 ea TOP Q4 PRN PRN Reason: Other - Labs Labs: 02/21/17 08:00 02/21/17 08:00 PT 12.0 Seconds (9.9-11.8) H 02/16/17 08:55 INR 1.11 (0.93-1.08) H 02/16/17 08:55 APTT 24.7 Seconds (23.7-30.8) 02/16/17 08:55 - Constitutional Appears: Non-toxic, No Acute Distress - Head Exam Head Exam: ATRAUMATIC, NORMAL INSPECTION, NORMOCEPHALIC - Eye Exam Eye Exam: EOMI - ENT Exam ENT Exam: Mucous Membranes Moist - Respiratory Exam Respiratory Exam: NORMAL BREATHING PATTERN. absent: Respiratory Distress - Cardiovascular Exam Cardiovascular Exam: +S1, +S2 - GI/Abdominal Exam GI & Abdominal Exam: Soft, Normal Bowel Sounds Additional comments: Dressing changed, minimal drainage. Mild tenderness to palpation rlq. - Extremities Exam Extremities Exam: Full ROM, Normal Inspection - Neurological Exam Neurological Exam: Alert, Awake, Oriented x3 - Psychiatric Exam Psychiatric exam: Normal Affect, Normal Mood - Skin Skin Exam: Dry, Intact, Normal Color, Warm Assessment and Plan - Assessment and Plan (Free Text) Assessment: This is a 21 yo male with past medical hx of Crohn's and drug seeking behavior presents with lower abdominal pain, fistula and abscess. 1. 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 Dr. Wang. recs appreciated. -continue zyvox, diflucan, flagyl, zosyn -surgery consult Cont IV abx no surgical intervention at this time -f/u IR regarding drainage -no drainage possible at this time -CT scan abdomen/pelvis shows 2.4 x 3.4 cm abscess in right abdominal wall -cultures negative so far -pt has picc in place -pending discharge planning; previous infusion center is not accepting him -f/u am labs 2. Chronic pain -pt continuously requesting pain meds - Increased morphine 1mg-->2mg >> morphine placed on hold -percocet increased to 2 q 6 3. hypokalemia -repleted with K -will f/u and continue to monitor 4. GI/DVT ppx -protonix -SCDs Dispo: will f/u with human services case manager regarding infusion of abx. Case and plan was seen, reviewed and discussed in detail with Dr Kwan. <Emir Kwan - Last Filed: 02/21/17 17:11> Objective - Vital Signs/Intake and Output Vital Signs (last 24 hours): Temp Pulse Resp BP Pulse Ox 98.4 F 63 17 97/54 L 100 02/21/17 06:00 02/21/17 06:00 02/21/17 06:00 02/21/17 06:00 02/21/17 06:00 Intake and Output: 02/21/17 02/21/17 06:59 18:59 Intake Total 720 Balance 720 - Medications Medications: Current Medications Piperacillin Sod/Tazobactam Sod (Zosyn 3.375 In Ns 100ml) 100 mls @ 200 mls/hr IVPB Q6 BRYANT PRN Reason: Protocol Stop: 02/25/17 18:01 Last Admin: 02/21/17 13:13 Dose: 200 mls/hr Fluconazole (Diflucan Iv 200 Mg/100 Ml Ns) 100 mls @ 100 mls/hr IVPB DAILY BRYANT PRN Reason: Protocol Last Admin: 02/21/17 10:53 Dose: 100 mls/hr Linezolid (Zyvox) 600 mg PO BID BRYANT PRN Reason: Protocol Stop: 02/24/17 10:01 Last Admin: 02/21/17 10:55 Dose: 600 mg Metronidazole (Flagyl) 500 mg PO TID BRYANT PRN Reason: Protocol Last Admin: 02/21/17 14:54 Dose: 500 mg Morphine Sulfate (Morphine) 2 mg IVP Q4H PRN PRN Reason: Pain, severe (8-10) Ondansetron HCl (Zofran Tab) 4 mg PO Q6 PRN PRN Reason: Nausea/Vomiting Pantoprazole Sodium (Protonix Ec Tab) 40 mg PO DAILY [facility] Last Admin: 02/21/17 10:55 Dose: 40 mg Vitamin A (Vitamin A & D Oint Ud Foilpak) 1 ea TOP Q4 PRN PRN Reason: Other - Labs Labs: 02/21/17 08:00 02/21/17 08:00 PT 12.0 Seconds (9.9-11.8) H 02/16/17 08:55 INR 1.11 (0.93-1.08) H 02/16/17 08:55 APTT 24.7 Seconds (23.7-30.8) 02/16/17 08:55 Attending/Attestation - Attestation I have personally seen and examined this patient.: Yes I have fully participated in the care of the patient.: Yes I have reviewed all pertinent clinical information, including history, physical exam and plan: Yes Notes (Text): 02/21/17 17:09 21 year old male with past medical history of Crohn's disease, 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 He was recently discharged from [facility] after abscess drainage and also reported recently finishing antibiotics. CT scan was reviewed as above; no drainable collection as per IR. He is being followed by GI, surgery and ID. Continue with antibiotics as per ID. Case was discussed with case coordinator regarding why his infusion company has been denied. He has history of opioid dependency on chronic opioids. He is on percocet prn and now asking for iv morphine or dilaudid. He was counselled on risks of narcotic abuse. He will need to follow up with pain management as outpatient. Upon discharge patient will be referred back to colorectal surgery at [facility]. Emir Kwan MD Hospitalist.
--- NOTE | 2017-02-21 17:00 | PN ---
DATE: 02/21/2017 SUBJECTIVE: Seen and examined at the bedside earlier today. The patient reports he is having pain. He is upset regarding his pain medication and feels that it was not enough. He has had no episodes of nausea or vomiting. He is tolerating what he can with the food. He reports he is moving his arpit ls. No reports of any bleeding. No acute overnight events reported. VITAL SIGNS: Temperature is 98.4, blood pressure 97/54, pulse rate 62, respirations 17, and 100% on room air. LABORATORY DATA: Labs today: WBC is 10.1, H and H are 9.0 and 29.1, platelets of 513. Sodium of 13 5, K is 3.9, BUN is 5, creatinine 0.9. LFTs are within normal limits. His abdominal Gram-stain is p ositive for Klebsiella pneumoniae. PHYSICAL EXAMINATION: HEENT: Sclera is anicteric. NECK: Supple. CARDIAC: S1, S2. LUNGS: Decreased breath sounds but good air entry, no rales or wheeze. ABDOMEN: With bowel sounds, soft, mild tenderness to right lower quadrant. He has the dressings and minimal drainage and did not see any blood. EXTREMITIES: No edema. NEUROLOGIC: He is awake, alert, and oriented. ASSESSMENT: This is a 21-year-old male with history of Crohn disease with cutaneous fistula and absc ess on CT. The patient has chronic pain. The patient with hypokalemia, which has improved now. He is positive for Klebsiella pneumoniae in his abdominal wound culture. PLAN: The patient is on Zyvox. He is on Diflucan, Flagyl, and on Zosyn as per ID. Continue PPI. A s far as pain medication, he is getting morphine. Continue the diet as tolerated. The patient was e valuated by IR, and there is no drainable collection noted. The patient is due to have followup at [facility]. His last Remicade was about a month ago. Continue his GI prophylaxis. Currentl y hold off on treatment at the present time in view of active infection. The patient was seen and ca se discussed with Dr. Sanders. Lashanda DAVE cc: [id number] TT: 02/21/2017 16:58:59 Confirmation # [id number] Dictation # [id number] bn
[2017-02-21 18:03] VITALS: RESP 20
--- NOTE | 2017-02-21 18:05 | CP.PCM.PN ---
Subjective - Date & Time of Evaluation Date of Evaluation: 02/21/17 Time of Evaluation: 10:15 - Subjective Subjective: Still complaining of pain in his abdomen, no fevers overnight. Objective - Vital Signs/Intake and Output Vital Signs (last 24 hours): Temp Pulse Resp BP Pulse Ox 99.3 F 94 H 20 97/60 L 100 02/20/17 16:00 02/20/17 16:00 02/20/17 16:00 02/20/17 16:00 02/20/17 16:00 Intake and Output: 02/21/17 02/21/17 06:59 18:59 Intake Total 720 Balance 720 - Medications Medications: Current Medications Piperacillin Sod/Tazobactam Sod (Zosyn 3.375 In Ns 100ml) 100 mls @ 200 mls/hr IVPB Q6 BRYANT PRN Reason: Protocol Stop: 02/25/17 18:01 Last Admin: 02/21/17 05:13 Dose: 200 mls/hr Fluconazole (Diflucan Iv 200 Mg/100 Ml Ns) 100 mls @ 100 mls/hr IVPB DAILY BRYANT PRN Reason: Protocol Last Admin: 02/20/17 09:18 Dose: 100 mls/hr Linezolid (Zyvox) 600 mg PO BID BRYANT PRN Reason: Protocol Stop: 02/24/17 10:01 Last Admin: 02/20/17 17:34 Dose: 600 mg Metronidazole (Flagyl) 500 mg PO TID BRYANT PRN Reason: Protocol Last Admin: 02/20/17 17:34 Dose: 500 mg Morphine Sulfate (Morphine) 2 mg IVP Q4H PRN PRN Reason: pain, sever Last Admin: 02/19/17 06:31 Dose: 2 mg Ondansetron HCl (Zofran Tab) 4 mg PO Q6 PRN PRN Reason: Nausea/Vomiting Oxycodone/Acetaminophen (Percocet 5/325 Mg Tab) 2 tab PO Q6 PRN PRN Reason: Pain, moderate (4-7) Stop: 02/22/17 12:01 Last Admin: 02/21/17 05:13 Dose: 2 tab Pantoprazole Sodium (Protonix Ec Tab) 40 mg PO DAILY [facility] Last Admin: 02/20/17 09:18 Dose: 40 mg Vitamin A (Vitamin A & D Oint Ud Foilpak) 1 ea TOP Q4 PRN PRN Reason: Other - Labs Labs: 02/20/17 06:00 02/20/17 06:00 PT 12.0 Seconds (9.9-11.8) H 02/16/17 08:55 INR 1.11 (0.93-1.08) H 02/16/17 08:55 APTT 24.7 Seconds (23.7-30.8) 02/16/17 08:55 - Constitutional Appears: Non-toxic, No Acute Distress - Head Exam Head Exam: NORMAL INSPECTION - Neck Exam Neck Exam: absent: Lymphadenopathy, Meningismus - Respiratory Exam Respiratory Exam: Decreased Breath Sounds - Cardiovascular Exam Cardiovascular Exam: +S1, +S2 - GI/Abdominal Exam GI & Abdominal Exam: Soft. absent: Tenderness Additional comments: dry dressings in place Assessment and Plan - Assessment and Plan (Free Text) Plan: Assessment Intra-abdominal abscess; externally in this patient with possible fistula, growing klebsiella history of enterocutaneous fistula with associated areas of phlegmon and microabscesses, previously grew Vancomycin-resistant Enterococcus faecium from , growing gram positive cocci and yeast from 11/27, in a patient with poorly- controlled Crohn's disease, now growing VRE again Plan continue Zyvox, Zosyn and Diflucan - discussed with Dr. Sanders - should have formal evaluation by interventional Radiology to see if abscess can be drained Will continue to follow clinically while the patient is in the hospital
--- NOTE | 2017-02-21 21:30 | PN ---
DATE: 02/21/2017 ADDENDUM This patient was seen and evaluated earlier. This is an addendum to the GI progress report dictated by Lashanda Parikh APN. The patient also discussed with Dr. Hasmukh Farmer, interventional radiologist. The patient's small col lection is not drainable. Would recommend at this point to continue the aggressive . This renato ent was discussed with Dr. Hasmukh Farmer. This is an addendum to the GI progress report dictated by Lashanda Parikh. The patient had a CT scan. The abscess is not drainable. Technically, there is no significant colle ction drainable. Would recommend at this point to continue the antibiotics as per ID. Would recomme nd strongly holding off any Remicade or biological therapy until the active process is controlled ful ly. Will . Teofilo Sanders MD cc: [id number] TT: 02/21/2017 21:29:54 Confirmation # [id number] Dictation # [id number] maite
[2017-02-21] MEDS: Morphine 2 mg/ml ISec IVP PRN (21:33)
[2017-02-22] MEDS: Morphine 2 mg/ml ISec IVP PRN ×3 (01:49→10:34)
[2017-02-22] MEDS: Piperacillin/Tazobact 3.375 gm 100 ML IVPB SCH ×2 (05:47→11:44)
--- NOTE | 2017-02-22 08:01 | CP.PCM.PN ---
Subjective - Date & Time of Evaluation Date of Evaluation: 02/22/17 Time of Evaluation: 06:35 - Subjective Subjective: Surgery Progress Note for Dr. Gonzalez Patient seen and examined at bedside. No acute events overnight. Patient reports to have less drainage coming out of his abdominal fistula, but still complaining of pain. Patient has no other complaints. Objective - Vital Signs/Intake and Output Vital Signs (last 24 hours): Temp Pulse Resp BP Pulse Ox 98.4 F 91 H 20 116/62 100 02/21/17 06:00 02/21/17 16:00 02/21/17 16:00 02/21/17 16:00 02/21/17 16:00 Intake and Output: 02/22/17 02/22/17 06:59 18:59 Intake Total 660 Output Total 1600 Balance -940 - Medications Medications: Current Medications Piperacillin Sod/Tazobactam Sod (Zosyn 3.375 In Ns 100ml) 100 mls @ 200 mls/hr IVPB Q6 BRYANT PRN Reason: Protocol Stop: 02/25/17 18:01 Last Admin: 02/22/17 05:47 Dose: 200 mls/hr Fluconazole (Diflucan Iv 200 Mg/100 Ml Ns) 100 mls @ 100 mls/hr IVPB DAILY BRYANT PRN Reason: Protocol Last Admin: 02/21/17 10:53 Dose: 100 mls/hr Linezolid (Zyvox) 600 mg PO BID BRYANT PRN Reason: Protocol Stop: 02/24/17 10:01 Last Admin: 02/21/17 18:30 Dose: 600 mg Metronidazole (Flagyl) 500 mg PO TID BRYANT PRN Reason: Protocol Last Admin: 02/21/17 18:00 Dose: 500 mg Morphine Sulfate (Morphine) 2 mg IVP Q4H PRN PRN Reason: Pain, severe (8-10) Last Admin: 02/22/17 05:46 Dose: 2 mg Ondansetron HCl (Zofran Tab) 4 mg PO Q6 PRN PRN Reason: Nausea/Vomiting Pantoprazole Sodium (Protonix Ec Tab) 40 mg PO DAILY BRYANT Last Admin: 02/21/17 10:55 Dose: 40 mg Vitamin A (Vitamin A & D Oint Ud Foilpak) 1 ea TOP Q4 PRN PRN Reason: Other - Labs Labs: 02/21/17 08:00 02/21/17 08:00 PT 12.0 Seconds (9.9-11.8) H 02/16/17 08:55 INR 1.11 (0.93-1.08) H 02/16/17 08:55 APTT 24.7 Seconds (23.7-30.8) 02/16/17 08:55 - Constitutional Appears: Non-toxic, No Acute Distress - Head Exam Head Exam: ATRAUMATIC, NORMAL INSPECTION - Eye Exam Eye Exam: EOMI, Normal appearance - ENT Exam ENT Exam: Mucous Membranes Moist - Neck Exam Neck Exam: Normal Inspection - Respiratory Exam Respiratory Exam: absent: Respiratory Distress - Cardiovascular Exam Cardiovascular Exam: +S1, +S2 - GI/Abdominal Exam GI & Abdominal Exam: Soft Additional comments: Three abdominal fistula located at RLQ. Dressing intact, with minimal light yellow drainage. Diffused tenderness to the touch. - Extremities Exam Extremities Exam: Normal Capillary Refill - Neurological Exam Neurological Exam: Alert, Awake, Oriented x3 - Psychiatric Exam Psychiatric exam: Normal Affect, Normal Mood - Skin Skin Exam: Normal Color, Warm Assessment and Plan - Assessment and Plan (Free Text) Assessment: 21 year old male with past medical history of Crohn's disease, vesicular cutaneous fistula, pain medication seeking behavior and iron deficiency anemia presents with right lower abdominal pain. Surgical consult was request to evaluate patient's right lower abdominal abscess found on CT scan. Plan: Right lower abdominal abscess -No surgical intervention indicated at this time -Continue topical vitamin A&D as skin protectant -Continue IV Antibiotic per ID -Medical management per primary team -IR recommends no drainable collection noticed -D/w attending Dr. Gonzalez
[2017-02-22 08:24] VITALS: BP 103/67; PULSE 100; TEMP 99.7; O2SAT 98
[2017-02-22 09:26] LABS: ADD MANUAL DIFF? NO
[2017-02-22 09:29] LABS: BASO # 0.01 K/mm3 (0.0-2.0); BASO % 0.1 % (0.0-3.0); EOS # 0.1 (0.0-0.7); GRAN % 78.4 % (50.0-68.0); HEMATOCRIT 30.9 % (42.0-52.0); LYMPH # 1.4 (1.2-3.4); LYMPH % 12.7 % (22.0-35.0); MEAN CELL VOLUME 74.1 fL (80.0-105.0); MEAN CORPUSCULAR HGB CONC 31.1 g/dl (31.0-37.0); MONO # 0.9 (0.1-0.6); MONO % 7.8 % (1.0-6.0); PLATELET COUNT 568 10^3/uL (120.0-450.0); RED CELL DISTRIBUTION WIDTH 20.7 % (11.5-14.5); WHITE BLOOD COUNT 11.2 10^3/ul (4.5-11.0)
[2017-02-22 09:39] LABS: ALKALINE PHOSPHATASE 83 U/L (38-133); ALT/SGPT 23 U/L (7-56); AST/SGOT 40 U/L (15-59); BILIRUBIN,TOTAL 0.4 mg/dL (0.2-1.3); BLOOD UREA NITROGEN 6 mg/dL (7-21); CALCIUM 9.2 mg/dL (8.4-10.5); CARBON DIOXIDE 30 mmol/L (21-33); CHLORIDE 98 mmol/L (98-107); GFR AFRICAN-AMERICAN > 60; GLUCOSE,RANDOM 106 mg/dL (70-110); MAGNESIUM 1.9 mg/dL (1.7-2.2); SODIUM 136 mmol/L (132-148); TOTAL PROTEIN 7.9 g/dL (5.8-8.3)
[2017-02-22] MEDS: Pantoprazole 40 mg EC Tab PO SCH (10:34)
[2017-02-22] MEDS: Fluconazole IV 200mg/100 ml NS 100 ML IVPB SCH (10:34)
--- NOTE | 2017-02-22 10:59 | CP.PCM.PN ---
<Jame Jean Baptiste - Last Filed: 02/22/17 10:59> Subjective - Date & Time of Evaluation Date of Evaluation: 02/22/17 Time of Evaluation: 11:00 - Subjective Subjective: Med progress note. Attending: Dr. Kwan Pt seen and examined at bedside. No acute distress, lying comfortably in bed. Continuously requesting more pain medication. Said morphine does not work for him, but noted he did request it again this morning 1030 am. No fevers, chills, vomiting. Objective - Vital Signs/Intake and Output Vital Signs (last 24 hours): Temp Pulse Resp BP Pulse Ox 99.7 F H 100 H 20 103/67 98 02/22/17 06:00 02/22/17 06:00 02/22/17 06:00 02/22/17 06:00 02/22/17 06:00 Intake and Output: 02/22/17 02/22/17 06:59 18:59 Intake Total 660 Output Total 1600 Balance -940 - Medications Medications: Current Medications Piperacillin Sod/Tazobactam Sod (Zosyn 3.375 In Ns 100ml) 100 mls @ 200 mls/hr IVPB Q6 BRYANT PRN Reason: Protocol Stop: 02/25/17 18:01 Last Admin: 02/22/17 05:47 Dose: 200 mls/hr Fluconazole (Diflucan Iv 200 Mg/100 Ml Ns) 100 mls @ 100 mls/hr IVPB DAILY BRYANT PRN Reason: Protocol Last Admin: 02/22/17 10:34 Dose: 100 mls/hr Linezolid (Zyvox) 600 mg PO BID BRYANT PRN Reason: Protocol Stop: 02/24/17 10:01 Last Admin: 02/22/17 10:33 Dose: 600 mg Metronidazole (Flagyl) 500 mg PO TID BRYANT PRN Reason: Protocol Last Admin: 02/22/17 10:33 Dose: 500 mg Morphine Sulfate (Morphine) 2 mg IVP Q4H PRN PRN Reason: Pain, severe (8-10) Last Admin: 02/22/17 10:34 Dose: 2 mg Ondansetron HCl (Zofran Tab) 4 mg PO Q6 PRN PRN Reason: Nausea/Vomiting Pantoprazole Sodium (Protonix Ec Tab) 40 mg PO DAILY [facility] Last Admin: 02/22/17 10:34 Dose: 40 mg Vitamin A (Vitamin A & D Oint Ud Foilpak) 1 ea TOP Q4 PRN PRN Reason: Other - Labs Labs: 02/22/17 09:00 02/22/17 09:00 PT 12.0 Seconds (9.9-11.8) H 02/16/17 08:55 INR 1.11 (0.93-1.08) H 02/16/17 08:55 APTT 24.7 Seconds (23.7-30.8) 02/16/17 08:55 - Constitutional Appears: Non-toxic, No Acute Distress - Head Exam Head Exam: ATRAUMATIC, NORMAL INSPECTION, NORMOCEPHALIC - Eye Exam Eye Exam: EOMI - ENT Exam ENT Exam: Mucous Membranes Moist - Neck Exam Neck Exam: Full ROM, Normal Inspection - Respiratory Exam Respiratory Exam: NORMAL BREATHING PATTERN. absent: Respiratory Distress - Cardiovascular Exam Cardiovascular Exam: +S1, +S2 - GI/Abdominal Exam GI & Abdominal Exam: Tenderness Additional comments: Mild tenderness RLQ, dressing changed, minimal drainage - Extremities Exam Extremities Exam: Full ROM, Normal Inspection - Back Exam Back Exam: NORMAL INSPECTION - Neurological Exam Neurological Exam: Alert, Awake, Oriented x3 - Psychiatric Exam Psychiatric exam: Normal Affect, Normal Mood - Skin Skin Exam: Dry, Intact, Normal Color, Warm Assessment and Plan - Assessment and Plan (Free Text) Assessment: This is a 21 yo male with past medical hx of Crohn's and drug seeking behavior presents with lower abdominal pain, fistula and abscess. 1. 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 Dr. Wang. recs appreciated. -continue PO zyvox, IV diflucan, PO flagyl, IV zosyn -surgery consult Cont IV abx no surgical intervention at this time -f/u IR regarding drainage -no drainage possible at this time -CT scan abdomen/pelvis shows 2.4 x 3.4 cm abscess in right abdominal wall -cultures negative so far -pt has picc in place -pt not getting good blood return from picc>>>will have IR evaluate -pending discharge planning; previous infusion center is not accepting him -f/u am labs 2. Chronic pain -pt continuously requesting pain meds -pt this morning saying morphine does not work for him; though requested morphine 10 am -wants percocet -will stop morphine and put percocet 2 q 6 3. hypokalemia -repleted with K -will f/u and continue to monitor 4. GI/DVT ppx -protonix -SCDs Dispo: will f/u with mattress spring encaser regarding infusion of abx. Case and plan was seen, reviewed and discussed in detail with Dr Kwan. <Emir Kwan - Last Filed: 02/23/17 06:43> Objective - Vital Signs/Intake and Output Vital Signs (last 24 hours): Temp Pulse Resp BP Pulse Ox 99.7 F H 100 H 20 103/67 98 02/22/17 06:00 02/22/17 06:00 02/22/17 06:00 02/22/17 06:00 02/22/17 06:00 - Labs Labs: 02/22/17 09:00 02/22/17 09:00 PT 12.0 Seconds (9.9-11.8) H 02/16/17 08:55 INR 1.11 (0.93-1.08) H 02/16/17 08:55 APTT 24.7 Seconds (23.7-30.8) 02/16/17 08:55 Attending/Attestation - Attestation I have personally seen and examined this patient.: Yes I have fully participated in the care of the patient.: Yes I have reviewed all pertinent clinical information, including history, physical exam and plan: Yes Notes (Text): 02/22/17 21 year old male with past medical history of Crohn's disease, 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 He was recently discharged from [facility] after abscess drainage and also reported recently finishing antibiotics. CT scan was reviewed as above; no drainable collection as per IR. He is being followed by GI, surgery and ID. Continue with antibiotics as per ID. Case was discussed with clinical case manager regarding why his infusion company has been denied. He has history of opioid dependency on chronic opioids. He was counselled on risks of narcotic abuse. He shows more concern regarding his pain regimen then he does regarding his overall medication condition. He is constantly going back at forth between requesting morphine and percoce. He will need to follow up with pain management as outpatient. Upon discharge patient will be referred back to colorectal surgery at [facility]. I was informed by nurse later in the afternoon patient was by the elevator about to leave the hospital. House doctor was notified who removed picc line prior to him leaving due to noncompliance and risk of misusing picc (see clinical case manager note). Patient signed out against medical advise. Emir Kwan MD Hospitalist.
[2017-02-22] MEDS ORDERED: Oxycodone/Acetaminophen 5/325 mg Tab PO PRN (15:30)
--- NOTE | 2017-02-22 15:33 | PN ---
DATE: 02/22/2017 SUBJECTIVE: Seen and examined at the bedside earlier today. The patient was seen ambulating around the bella with a steady gait. The patient reports that he still has abdominal pain, but it is slightl y improved, although he is still unhappy with his pain medication regimen. He is moving his bowels, which is loose, but does not report any blood. The abscess continues to be purulent drain, but no bl ood. He is eating. He is tolerating his oral intake. VITAL SIGNS: Temperature is 99.7, pulse rate is 100, blood pressure is 103/67, respirations 20, 98 o n room air. LABORATORY DATA: WBC is 11.2, H and H is 9.6 and 30.9, this is steady, platelets are 568. Sodium 136 , K 4.0, BUN 6, creatinine is 0.9. LFTs are within normal limits. PHYSICAL EXAMINATION: HEENT: Sclerae are anicteric. NECK: Supple. CARDIAC: S1, S2. LUNGS: Sounds are clear. ABDOMEN: With bowel sounds, soft. The fistula is draining, but no blood noted. Drainage site is mi nimal. He does have some tenderness around the area. No rebound or guarding. EXTREMITIES: No edema. ASSESSMENT: This is a 21-year-old male with a past medical history of Crohn's disease with a cutaneo us fistula and abscess noted on CT. He was evaluated by Dr. Hasmukh Farmer, but there is no drainable co llection. The patient also with history of chronic pain. PLAN: Continue IV antibiotics. He is on Flagyl, Zyvox and Diflucan. He is also on Zosyn and contin ue GI prophylaxis. We would also strongly recommend holding off any Remicade or biological therapy u ntil this active infection is fully controlled. Recommended the patient to follow up at [facility]. The patient states he has an appointment on the with the ID doctor and the GI doctor. This is uncon firmed. I spoke to medical team earlier. The patient was seen and case discussed with Dr. Sanders. Lashanda DAVE cc: [id number] TT: 02/22/2017 15:33:02 Confirmation # [id number] Dictation # [id number] rn
--- NOTE | 2017-02-22 16:21 | CP.PCM.PN ---
Subjective - Date & Time of Evaluation Date of Evaluation: 02/22/17 Time of Evaluation: 16:18 - Subjective Subjective: Patient requested leaving the hospital against medical advice, signed AMA sheet , please see for details. Removed PICC line upon request of the Primary team, patient has come the hospital with PICC line from an outside infusion center, who according to primary team was also trying to track patient as he lost follow up, with risk of misusing picc line. Removed without any difficulty, hemostasis achieved, covered with gauze and then with clear tegaderm with air seal. Patient left hospital. Objective - Vital Signs/Intake and Output Vital Signs (last 24 hours): Temp Pulse Resp BP Pulse Ox 99.7 F H 100 H 20 103/67 98 02/22/17 06:00 02/22/17 06:00 02/22/17 06:00 02/22/17 06:00 02/22/17 06:00 Intake and Output: 02/22/17 02/22/17 06:59 18:59 Intake Total 660 Output Total 1600 Balance -940 - Medications Medications: Current Medications Piperacillin Sod/Tazobactam Sod (Zosyn 3.375 In Ns 100ml) 100 mls @ 200 mls/hr IVPB Q6 BRYANT PRN Reason: Protocol Stop: 02/25/17 18:01 Last Admin: 02/22/17 11:44 Dose: 200 mls/hr Fluconazole (Diflucan Iv 200 Mg/100 Ml Ns) 100 mls @ 100 mls/hr IVPB DAILY BRYANT PRN Reason: Protocol Last Admin: 02/22/17 10:34 Dose: 100 mls/hr Linezolid (Zyvox) 600 mg PO BID BRYANT PRN Reason: Protocol Stop: 02/24/17 10:01 Last Admin: 02/22/17 10:33 Dose: 600 mg Metronidazole (Flagyl) 500 mg PO TID BRYANT PRN Reason: Protocol Last Admin: 02/22/17 14:07 Dose: 500 mg Ondansetron HCl (Zofran Tab) 4 mg PO Q6 PRN PRN Reason: Nausea/Vomiting Oxycodone/Acetaminophen (Percocet 5/325 Mg Tab) 2 tab PO Q6H PRN PRN Reason: Pain, severe (8-10) Stop: 02/25/17 15:31 Last Admin: 02/22/17 14:06 Dose: 2 tab Pantoprazole Sodium (Protonix Ec Tab) 40 mg PO DAILY BRYANT Last Admin: 02/22/17 10:34 Dose: 40 mg Vitamin A (Vitamin A & D Oint Ud Foilpak) 1 ea TOP Q4 PRN PRN Reason: Other - Labs Labs: 02/22/17 09:00 02/22/17 09:00 PT 12.0 Seconds (9.9-11.8) H 02/16/17 08:55 INR 1.11 (0.93-1.08) H 02/16/17 08:55 APTT 24.7 Seconds (23.7-30.8) 02/16/17 08:55
--- NOTE | 2017-02-22 16:36 | CP.PCM.PN ---
Subjective - Date & Time of Evaluation Date of Evaluation: 02/22/17 Time of Evaluation: 10:35 - Subjective Subjective: Patient seen this morning, continues to complain about pain in his abdomen, no fevers overnight, no diarrhea. Objective - Vital Signs/Intake and Output Vital Signs (last 24 hours): Temp Pulse Resp BP Pulse Ox 99.7 F H 100 H 20 103/67 98 02/22/17 06:00 02/22/17 06:00 02/22/17 06:00 02/22/17 06:00 02/22/17 06:00 Intake and Output: 02/22/17 02/22/17 06:59 18:59 Intake Total 660 Output Total 1600 Balance -940 - Medications Medications: Current Medications Piperacillin Sod/Tazobactam Sod (Zosyn 3.375 In Ns 100ml) 100 mls @ 200 mls/hr IVPB Q6 BRYANT PRN Reason: Protocol Stop: 02/25/17 18:01 Last Admin: 02/22/17 05:47 Dose: 200 mls/hr Fluconazole (Diflucan Iv 200 Mg/100 Ml Ns) 100 mls @ 100 mls/hr IVPB DAILY BRYANT PRN Reason: Protocol Last Admin: 02/21/17 10:53 Dose: 100 mls/hr Linezolid (Zyvox) 600 mg PO BID BRYANT PRN Reason: Protocol Stop: 02/24/17 10:01 Last Admin: 02/21/17 18:30 Dose: 600 mg Metronidazole (Flagyl) 500 mg PO TID BRYANT PRN Reason: Protocol Last Admin: 02/21/17 18:00 Dose: 500 mg Morphine Sulfate (Morphine) 2 mg IVP Q4H PRN PRN Reason: Pain, severe (8-10) Last Admin: 02/22/17 05:46 Dose: 2 mg Ondansetron HCl (Zofran Tab) 4 mg PO Q6 PRN PRN Reason: Nausea/Vomiting Pantoprazole Sodium (Protonix Ec Tab) 40 mg PO DAILY [facility] Last Admin: 02/21/17 10:55 Dose: 40 mg Vitamin A (Vitamin A & D Oint Ud Foilpak) 1 ea TOP Q4 PRN PRN Reason: Other - Labs Labs: 02/21/17 08:00 02/21/17 08:00 PT 12.0 Seconds (9.9-11.8) H 02/16/17 08:55 INR 1.11 (0.93-1.08) H 02/16/17 08:55 APTT 24.7 Seconds (23.7-30.8) 02/16/17 08:55 - Constitutional Appears: Non-toxic, No Acute Distress - Head Exam Head Exam: NORMAL INSPECTION - Neck Exam Neck Exam: absent: Meningismus - Respiratory Exam Respiratory Exam: Decreased Breath Sounds - Cardiovascular Exam Cardiovascular Exam: +S1, +S2 - GI/Abdominal Exam GI & Abdominal Exam: Soft. 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 Sanders - per interventional Radiology abscess cannot be drained
--- NOTE | 2017-02-23 15:05 | CP.PCM.DIS ---
<Jame Jean Baptiste - Last Filed: 02/23/17 15:09> Provider - Provider Date of Admission: 02/16/17 14:29 Attending physician: Emir Kwan MD Consults: KALEIGH Russell- Dr. Gonzalez Time Spent in preparation of Discharge (in minutes): 45 Hospital Course - Lab Results Lab Results: Micro Results 02/19/17 01:15 Abdomen Gram Stain - Final 02/19/17 01:15 Abdomen Wound Culture - Final Klebsiella Pneumoniae Ssp Pneu Most Recent Lab Values WBC 11.2 10^3/ul (4.5-11.0) H 02/22/17 09:00 RBC 4.17 10^6/uL (3.5-6.1) 02/22/17 09:00 Hgb 9.6 gm/dL (14.0-18.0) L 02/22/17 09:00 Hct 30.9 % (42.0-52.0) L 02/22/17 09:00 MCV 74.1 fL (80.0-105.0) L 02/22/17 09:00 MCH 23.0 pg (25.0-35.0) L 02/22/17 09:00 MCHC 31.1 g/dl (31.0-37.0) 02/22/17 09:00 RDW 20.7 % (11.5-14.5) H 02/22/17 09:00 Plt Count 568 10^3/uL (120.0-450.0) H 02/22/17 09:00 MPV 8.0 fl (7.0-11.0) 02/22/17 09:00 Gran % 78.4 % (50.0-68.0) H 02/22/17 09:00 Lymph % (Auto) 12.7 % (22.0-35.0) L 02/22/17 09:00 [place] % (Auto) 7.8 % (1.0-6.0) H 02/22/17 09:00 Eos % (Auto) 1.0 % (1.5-5.0) L 02/22/17 09:00 Baso % (Auto) 0.1 % (0.0-3.0) 02/22/17 09:00 Gran # 8.80 (1.4-6.5) H 02/22/17 09:00 Lymph # 1.4 (1.2-3.4) 02/22/17 09:00 [place] # 0.9 (0.1-0.6) H 02/22/17 09:00 Eos # 0.1 (0.0-0.7) 02/22/17 09:00 Baso # 0.01 K/mm3 (0.0-2.0) 02/22/17 09:00 PT 12.0 Seconds (9.9-11.8) H 02/16/17 08:55 INR 1.11 (0.93-1.08) H 02/16/17 08:55 APTT 24.7 Seconds (23.7-30.8) 02/16/17 08:55 Sodium 136 mmol/L (132-148) 02/22/17 09:00 Potassium 4.0 mmol/L (3.6-5.0) 02/22/17 09:00 Chloride 98 mmol/L (98-107) 02/22/17 09:00 Carbon Dioxide 30 mmol/L (21-33) 02/22/17 09:00 Anion Gap 12 (10-20) 02/22/17 09:00 BUN 6 mg/dL (7-21) L 02/22/17 09:00 Creatinine 0.9 mg/dL (0.5-1.4) 02/22/17 09:00 Est GFR ( Amer) > 60 02/22/17 09:00 Est GFR (Non-Af Amer) > 60 02/22/17 09:00 Random Glucose 106 mg/dL (70-110) 02/22/17 09:00 Calcium 9.2 mg/dL (8.4-10.5) 02/22/17 09:00 Phosphorus 4.0 mg/dL (2.5-4.5) 02/22/17 09:00 Magnesium 1.9 mg/dL (1.7-2.2) 02/22/17 09:00 Total Bilirubin 0.4 mg/dL (0.2-1.3) 02/22/17 09:00 AST 40 U/L (15-59) 02/22/17 09:00 ALT 23 U/L (7-56) 02/22/17 09:00 Alkaline Phosphatase 83 U/L (38-133) 02/22/17 09:00 Total Protein 7.9 g/dL (5.8-8.3) 02/22/17 09:00 Albumin 3.8 g/dL (3.0-4.8) 02/22/17 09:00 Globulin 4.0 gm/dL 02/22/17 09:00 Albumin/Globulin Ratio 1.0 (1.1-1.8) L 02/22/17 09:00 Lipase 86 U/L (23-300) 02/16/17 08:55 - Hospital Course Hospital Course: Admit date- 02/16/17 AMA date- 02/22/17 Consults GI Surgery ID Discharge diagnoses 1. Crohn's disease 2. Chronic pain Procedures- none HPI: see h/p Labs- see lab data section Hospital course This is a 21 yo male with past medical hx of Crohn's and drug seeking behavior presents with lower abdominal pain, fistula and abscess. 1. 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 Dr. Wang. recs appreciated. -PO zyvox, IV diflucan, PO flagyl, IV zosyn -surgery consult Cont IV abx no surgical intervention at this time -f/u IR regarding drainage -no drainage possible at this time -CT scan abdomen/pelvis shows 2.4 x 3.4 cm abscess in right abdominal wall -cultures negative -pt has picc in place from outside infusion center -pt not getting good blood return from picc>>>will have IR evaluate, given cathflow -pending discharge planning; previous infusion center is not accepting him 2. Chronic pain -pt continuously requesting pain meds -we managed him between percocet and morphine -pt not satisfied with pain regimen and continuously asking adjustments, more doses, and stronger pain meds 3. hypokalemia -repleted with K -will f/u and continue to monitor 4. GI/DVT ppx -protonix -SCDs -pt left AMA and picc line removed afternoon of February 22, 2017 DC meds N/A. Pt left against medical advice. DC instructions N/A. Pt left against medical advice. - Date & Time of H&P Date of H&P: 02/16/17 Time of H&P: 14:49 Discharge Exam - Head Exam Head Exam: NORMAL INSPECTION Discharge Plan - Discharge Medications Prescriptions: guaiFENesin/Codeine [Robitussin w/Codeine] 5 ml PO Q4H #10 udc - Follow Up Plan Condition: FAIR Disposition: AGAINST MEDICAL ADVICE Referrals: [facility], [Non-Staff] - <Emir Kwan - Last Filed: 02/23/17 18:10> Provider - Provider Date of Admission: 02/16/17 14:29 Attending physician: Emir Kwan MD Hospital Course - Lab Results Lab Results: Micro Results 02/19/17 01:15 Abdomen Gram Stain - Final 02/19/17 01:15 Abdomen Wound Culture - Final Klebsiella Pneumoniae Ssp Pneu Most Recent Lab Values WBC 11.2 10^3/ul (4.5-11.0) H 02/22/17 09:00 RBC 4.17 10^6/uL (3.5-6.1) 02/22/17 09:00 Hgb 9.6 gm/dL (14.0-18.0) L 02/22/17 09:00 Hct 30.9 % (42.0-52.0) L 02/22/17 09:00 MCV 74.1 fL (80.0-105.0) L 02/22/17 09:00 MCH 23.0 pg (25.0-35.0) L 02/22/17 09:00 MCHC 31.1 g/dl (31.0-37.0) 02/22/17 09:00 RDW 20.7 % (11.5-14.5) H 02/22/17 09:00 Plt Count 568 10^3/uL (120.0-450.0) H 02/22/17 09:00 MPV 8.0 fl (7.0-11.0) 02/22/17 09:00 Gran % 78.4 % (50.0-68.0) H 02/22/17 09:00 Lymph % (Auto) 12.7 % (22.0-35.0) L 02/22/17 09:00 [place] % (Auto) 7.8 % (1.0-6.0) H 02/22/17 09:00 Eos % (Auto) 1.0 % (1.5-5.0) L 02/22/17 09:00 Baso % (Auto) 0.1 % (0.0-3.0) 02/22/17 09:00 Gran # 8.80 (1.4-6.5) H 02/22/17 09:00 Lymph # 1.4 (1.2-3.4) 02/22/17 09:00 [place] # 0.9 (0.1-0.6) H 02/22/17 09:00 Eos # 0.1 (0.0-0.7) 02/22/17 09:00 Baso # 0.01 K/mm3 (0.0-2.0) 02/22/17 09:00 PT 12.0 Seconds (9.9-11.8) H 02/16/17 08:55 INR 1.11 (0.93-1.08) H 02/16/17 08:55 APTT 24.7 Seconds (23.7-30.8) 02/16/17 08:55 Sodium 136 mmol/L (132-148) 02/22/17 09:00 Potassium 4.0 mmol/L (3.6-5.0) 02/22/17 09:00 Chloride 98 mmol/L (98-107) 02/22/17 09:00 Carbon Dioxide 30 mmol/L (21-33) 02/22/17 09:00 Anion Gap 12 (10-20) 02/22/17 09:00 BUN 6 mg/dL (7-21) L 02/22/17 09:00 Creatinine 0.9 mg/dL (0.5-1.4) 02/22/17 09:00 Est GFR ( Amer) > 60 02/22/17 09:00 Est GFR (Non-Af Amer) > 60 02/22/17 09:00 Random Glucose 106 mg/dL (70-110) 02/22/17 09:00 Calcium 9.2 mg/dL (8.4-10.5) 02/22/17 09:00 Phosphorus 4.0 mg/dL (2.5-4.5) 02/22/17 09:00 Magnesium 1.9 mg/dL (1.7-2.2) 02/22/17 09:00 Total Bilirubin 0.4 mg/dL (0.2-1.3) 02/22/17 09:00 AST 40 U/L (15-59) 02/22/17 09:00 ALT 23 U/L (7-56) 02/22/17 09:00 Alkaline Phosphatase 83 U/L (38-133) 02/22/17 09:00 Total Protein 7.9 g/dL (5.8-8.3) 02/22/17 09:00 Albumin 3.8 g/dL (3.0-4.8) 02/22/17 09:00 Globulin 4.0 gm/dL 02/22/17 09:00 Albumin/Globulin Ratio 1.0 (1.1-1.8) L 02/22/17 09:00 Lipase 86 U/L (23-300) 02/16/17 08:55 Attending/Attestation - Attestation I have personally seen and examined this patient.: Yes I have fully participated in the care of the patient.: Yes I have reviewed all pertinent clinical information, including history, physical exam and plan: Yes Notes (Text): 02/23/17 18:08 21 year old male with past medical history of Crohn's disease, 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 He was recently discharged from [facility] after abscess drainage and also reported recently finishing antibiotics. CT scan was reviewed as above; no drainable collection as per IR. He was being followed by GI, surgery and ID and on antibiotics as per ID. Case was discussed with briefcase sewer regarding why his infusion company has been denied. He has history of opioid dependency on chronic opioids. He was counselled on risks of narcotic abuse. He showed more concern regarding his pain regimen then he does regarding his overall medication condition. He was constantly going back at forth between requesting morphine and percocet. He signed out AMA on 02/22/17. Picc line was removed prior to him leaving due to noncompliance and risk of misusing picc (see briefcase sewer note). Emir Kwan MD Hospitalist.
== END 2017-02-22 16:25 | disposition left against medical advice (07) | DRG 277 ==
LOC: ED 07:59 → ERH 14:29 → 3RNO 15:54 → 3RSO 18:38
PROVIDERS: ADMIT Internal Medicine; ATTEND Internal Medicine
DX: L02.211 Cutaneous abscess of abdominal wall (principal); N32.2 Vesical fistula, not elsewhere classified; K50.113 Crohn's disease of large intestine with fistula; F11.20 Opioid dependence, uncomplicated; K50.114 Crohn's disease of large intestine with abscess; B96.1 Klebsiella pneumoniae [K. pneumoniae] as the cause of diseases classified elsewhere; E87.6 Hypokalemia; D50.9 Iron deficiency anemia, unspecified; G89.29 Other chronic pain; Z76.5 Malingerer [conscious simulation]; Z91.19 Patient's noncompliance with other medical treatment and regimen

== ENCOUNTER 2017-03-12 14:38 | Emergency (ER) | payer MEDICAID ==
--- NOTE | 2017-03-12 14:54 | ED PDOC ---
Arrival/HPI - General Chief Complaint: Cough, Cold, Congestion Time Seen by Provider: 03/12/17 14:39 Historian: Patient - History of Present Illness Narrative History of Present Illness (Text): 03/12/17 14:53 21 y/o male, pmh including crohn's disease, allergic to nsaid and benadryl, c/o coughing x 2 weeks. Pt. stated that he has been dry coughing x 2 weeks, no chest pain or shortness of breath, no palpitation, no leg or calf pain history, no dizziness, no night sweat, cough been causing him to have throat pain, no fever or chills, no other medical or psychological complaints. Past Medical History - Provider Review Nursing Documentation Reviewed: Yes - Infectious Disease Hx of Infectious Diseases: None - Tetanus Immunization Tetanus Immunization: Unknown - Reproductive Currently : No - Cardiac Hx Cardiac Disorders: No - Pulmonary Hx Respiratory Disorders: Yes Hx Pneumonia: Yes - Neurological Hx Neurological Disorder: Yes Hx Dizziness: Yes (SYNCOPE) - HEENT Hx HEENT Disorder: No - Renal Hx Renal Disorder: No - Endocrine/Metabolic Hx Endocrine Disorders: No - Hematological/Oncological Hx Blood Disorders: Yes Hx Anemia: Yes - Integumentary Hx Dermatological Disorder: Yes (RIGHT LOWER BACK FISTULA.DID I&D JANUARY 31 [facility],) Other/Comment: 02-16-17 3 RIGHT ABDOMINAL WALL ABSCESS. WITH LIGHT GREEN DRAINAGE.MEDIUM AMT. - Musculoskeletal/Rheumatological Hx Musculoskeletal Disorders: No Hx Falls: No - Gastrointestinal Hx Gastrointestinal Disorders: Yes Hx Crohn's Disease: Yes - Genitourinary/Gynecological Hx Genitourinary Disorders: Yes Hx Urinary Tract Infection: Yes - Psychiatric Hx Psychophysiologic Disorder: Yes Hx Anxiety: Yes Hx Substance Use: Yes (H/O) - Surgical History Other/Comment: Colon resection - Anesthesia Hx Anesthesia: Yes Hx Anesthesia Reactions: No Hx Malignant Hyperthermia: No - Suicidal Assessment Feels Threatened In Home Enviroment: No Family/Social History - Physician Review Nursing Documentation Reviewed: Yes Family/Social History: Unknown Family HX Smoking Status: Current Some Days Smoker Hx Alcohol Use: No Hx Substance Use: Yes (H/O) Allergies/Home Meds Allergies/Adverse Reactions: Allergies diphenhydramine [From Benadryl] Allergy (Verified 03/12/17 14:50) RASH FISH Allergy (Verified 03/12/17 14:50) RASH ketorolac [From Toradol] Allergy (Verified 03/12/17 14:50) RASH shellfish derived Adverse Reaction (Verified 03/12/17 14:50) ANGIOEDEMA Review of Systems - Review of Systems Constitutional: absent: Fatigue, Fevers Eyes: absent: Vision Changes ENT: Sore Throat. absent: Hearing Changes Respiratory: Cough. absent: SOB Cardiovascular: absent: Chest Pain Gastrointestinal: absent: Abdominal Pain, Diarrhea, Nausea, Vomiting Musculoskeletal: absent: Arthralgias, Myalgias Skin: absent: Rash, Pruritis, Skin Lesions Neurological: absent: Headache, Dizziness, Gait Changes Physical Exam Vital Signs Reviewed: Yes Vital Signs Temp Pulse Resp BP Pulse Ox 03/12/17 15:15 82 18 115/70 99 03/12/17 14:39 98.3 F 87 18 110/60 99 Temperature: Afebrile Blood Pressure: Normal Pulse: Regular Respiratory Rate: Normal Appearance: Positive for: Well-Appearing, Non-Toxic, Comfortable Pain Distress: None Mental Status: Positive for: Alert and Oriented X 3 - Systems Exam Head: Present: Atraumatic, Normocephalic Pupils: Present: PERRL Extroacular Muscles: Present: EOMI Conjunctiva: Present: Normal Mouth: Present: Moist Mucous Membranes Pharnyx: No: ERYTHEMA, EXUDATE, TONSILS ENLARGED, Peritonsilar Swelling, Uvular Deviation, Muffled/Hoarse Voice, Strider, Soft Palate/Uvular Edema Neck: Present: Normal Range of Motion, Trachea Midline. No: Lymphadenopathy Respiratory/Chest: Present: Clear to Auscultation, Good Air Exchange. No: Respiratory Distress, Accessory Muscle Use, Wheezes, Decreased Breath Sounds, Rales, Retracting, Rhonchi, Tachypneic, Tender to Palpation, Other Cardiovascular: Present: Regular Rate and Rhythm, Normal S1, S2, Other (no pedal edema). No: Murmurs Abdomen: Present: Normal Bowel Sounds. No: Tenderness, Distention, Peritoneal Signs Back: Present: Normal Inspection Upper Extremity: Present: Normal Inspection. No: Cyanosis, Edema Lower Extremity: Present: Normal Inspection. No: Edema Neurological: Present: GCS=15, Speech Normal, Motor Func Grossly Intact, Gait Normal, Memory Normal Skin: Present: Warm, Dry, Normal Color. No: Rashes Psychiatric: Present: Alert, Oriented x 3, Normal Insight, Normal Concentration Medical Decision Making ED Course and Treatment: 03/12/17 14:54 -chest xray -pt. stated that he is chronically on the 2 tablets of percocet 5/325 for his crohn's disease, doesn't have the medication with him and due for his dosage, percocet 5/325 2 tablets po ordered. 03/12/17 15:30 -Chest xray show no active disease, no indication of antibiotic. -Pt. request coughing medication with codeine or hydrocodone, I checked the [facility] and the patient which he has received 3 prescriptions of controlled substances including coughing medication in 03/2017, 4 prescriptions of controlled substances including coughing medication in 02/2017. -Discharge home with tylenol for pain as needed, salt water gargling, tessalon, stay hydrated, bed rest, follow up with your own pmd within 2 days, return to the ER for any new or worsening signs or symptoms. - RAD Interpretation Radiology Orders: 03/12/17 14:59 CHEST PORTABLE [RAD] Stat no active disease Plant Health Care Technician: Radiologist - Medication Orders Current Medication Orders: Discontinued Medications Oxycodone/Acetaminophen (Percocet 5/325 Mg Tab) 2 tab PO STAT STA Stop: 03/12/17 15:00 Last Admin: 03/12/17 15:16 Dose: 2 tab - PA / FIELD EDUCATION DIRECTOR / Resident Statement / has reviewed & agrees with the documentation as recorded. Disposition/Present on Arrival - Present on Arrival Any Indicators Present on Arrival: No History of DVT/PE: No History of Uncontrolled Diabetes: No Urinary Catheter: No History of Decub. Ulcer: No History Surgical Site Infection Following: None - Disposition Have Diagnosis and Disposition been Completed?: Yes Diagnosis: Cough Disposition: HOME/ ROUTINE Disposition Time: 14:54 Patient Plan: Discharge Patient Problems: Current Active Problems Problem Status Onset Cough Acute Condition: GOOD Additional Instructions: Discharge home with tylenol for pain as needed, salt water gargling, tessalon, stay hydrated, bed rest, follow up with your own pmd within 2 days, return to the ER for any new or worsening signs or symptoms. Prescriptions: Benzonatate [Tessalon Perles] 100 mg PO TID PRN #21 sgl PRN Reason: Other
[2017-03-12] MEDS ORDERED: Oxycodone/Acetaminophen 5/325 mg Tab PO STA (14:59)
[2017-03-12 15:05] VITALS: RESP 18; TEMP 98.3; O2SAT 99; BMI 17.1
[2017-03-12 15:15] VITALS: BP 115/70; PULSE 82
--- NOTE | 2017-03-12 15:19 | RAD ---
HISTORY: cough x 2 weeks COMPARISON: 12/30/2016 FINDINGS: LUNGS: No active pulmonary disease. PLEURA: No significant pleural effusion identified, no pneumothorax apparent. CARDIOVASCULAR: Normal. OSSEOUS STRUCTURES: No significant abnormalities. VISUALIZED UPPER ABDOMEN: Normal. OTHER FINDINGS: None. IMPRESSION: No active disease.
== END 2017-03-12 15:46 | disposition home or self-care (01) ==
LOC: ED 14:38
DX: R05 Cough (principal)

== ENCOUNTER 2017-03-13 21:43 | Emergency (ER) | payer MEDICAID ==
[2017-03-13 21:59] VITALS: BMI 17.1
[2017-03-13 22:11] VITALS: BP 113/55; PULSE 99; RESP 18; TEMP 98.1; O2SAT 99
--- NOTE | 2017-03-13 22:40 | ED PDOC ---
Arrival/HPI - General Chief Complaint: Wound Check Time Seen by Provider: 03/13/17 22:27 Historian: Patient - History of Present Illness Narrative History of Present Illness (Text): 03/13/17 22:36 This 21 year old male, whose past medical history includes Crohn's disease, vesicular cutaneous fistula and chronic abdominal abscess, presents to the emergency department complaining of chronic wound pain. Patient stated he only needs pain control. He has an appointment to see his doctor tomorrow. Denies fever, chill,s, sob, cp, rectal bleeding, or abnormal gait. Time/Duration: Other (chronic painful wound.) Context: Home Past Medical History - Provider Review Nursing Documentation Reviewed: Yes - Infectious Disease Hx of Infectious Diseases: None - Tetanus Immunization Tetanus Immunization: Unknown - Reproductive Currently : No - Cardiac Hx Cardiac Disorders: No - Pulmonary Hx Respiratory Disorders: Yes Hx Pneumonia: Yes - Neurological Hx Neurological Disorder: Yes Hx Dizziness: Yes (SYNCOPE) - HEENT Hx HEENT Disorder: No - Renal Hx Renal Disorder: No - Endocrine/Metabolic Hx Endocrine Disorders: No - Hematological/Oncological Hx Blood Disorders: Yes Hx Anemia: Yes - Integumentary Hx Dermatological Disorder: Yes (RIGHT LOWER BACK FISTULA.DID I&D JANUARY 31 [facility],) Other/Comment: 02-16-17 3 RIGHT ABDOMINAL WALL ABSCESS. WITH LIGHT GREEN DRAINAGE.MEDIUM AMT. - Musculoskeletal/Rheumatological Hx Musculoskeletal Disorders: No Hx Falls: No - Gastrointestinal Hx Gastrointestinal Disorders: Yes Hx Crohn's Disease: Yes - Genitourinary/Gynecological Hx Genitourinary Disorders: Yes Hx Urinary Tract Infection: Yes - Psychiatric Hx Psychophysiologic Disorder: Yes Hx Anxiety: Yes Hx Substance Use: Yes (H/O) - Surgical History Other/Comment: Colon resection - Anesthesia Hx Anesthesia: Yes Hx Anesthesia Reactions: No Hx Malignant Hyperthermia: No - Suicidal Assessment Feels Threatened In Home Enviroment: No Family/Social History - Physician Review Nursing Documentation Reviewed: Yes Family/Social History: No Known Family HX Smoking Status: Current Some Days Smoker Hx Alcohol Use: No Hx Substance Use: Yes (H/O) Allergies/Home Meds Allergies/Adverse Reactions: Allergies diphenhydramine [From Benadryl] Allergy (Verified 03/13/17 21:59) RASH FISH Allergy (Verified 03/13/17 21:59) RASH ketorolac [From Toradol] Allergy (Verified 03/13/17 21:59) RASH shellfish derived Adverse Reaction (Verified 03/13/17 21:59) ANGIOEDEMA Home Medications: Home Meds Medication Instructions Recorded Confirmed No Known Home Med 03/13/17 03/13/17 Review of Systems - Review of Systems Constitutional: Normal. absent: Fatigue, Weight Change, Fevers Eyes: Normal ENT: Normal Respiratory: Normal. absent: SOB, Cough Cardiovascular: Normal. absent: Chest Pain Gastrointestinal: Normal. absent: Abdominal Pain, Stool Changes, Constipation, Diarrhea, Nausea, Vomiting Genitourinary Male: Normal Musculoskeletal: Normal Skin: Other (painful chronic abdominal wound.) Neurological: Normal Endocrine: Normal Hemo/Lymphatic: Normal Psychiatric: Normal Physical Exam Vital Signs Temp Pulse Resp BP Pulse Ox 03/13/17 22:03 98.1 F 99 H 18 113/55 L 99 Temperature: Afebrile Blood Pressure: Normal Pulse: Regular Respiratory Rate: Normal Appearance: Positive for: Well-Appearing, Non-Toxic, Comfortable Pain Distress: None Mental Status: Positive for: Alert and Oriented X 3 - Systems Exam Head: Present: Atraumatic, Normocephalic Pupils: Present: PERRL Extroacular Muscles: Present: EOMI Conjunctiva: Present: Normal Mouth: Present: Moist Mucous Membranes Neck: Present: Normal Range of Motion Respiratory/Chest: Present: Clear to Auscultation, Good Air Exchange. No: Respiratory Distress, Accessory Muscle Use Cardiovascular: Present: Regular Rate and Rhythm, Normal S1, S2. No: Murmurs Abdomen: Present: Tenderness (mild tenderness over abdominal wound, with trace of clear discharge. No erythema, or swelling), Normal Bowel Sounds, Other. No : Distention, Peritoneal Signs, Rebound, Guarding Back: Present: Normal Inspection Upper Extremity: Present: Normal Inspection. No: Cyanosis, Edema Lower Extremity: Present: Normal Inspection. No: Edema Neurological: Present: GCS=15, CN II-XII Intact, Speech Normal Skin: Present: Warm, Dry, Normal Color. No: Rashes Psychiatric: Present: Alert, Oriented x 3, Normal Insight, Normal Concentration Medical Decision Making ED Course and Treatment: 03/13/17 22:45 Patient is resting comfortably, in no distress, abdomen is soft, no rebound or guarding, and is tolerating PO. Patient has no signs or symptoms to suggest surgical pathology. Patient was advised to follow up without fail with physician or to return to the ER for reevaluation in 1-2 days. Re-evaluation Time: 22:45 Reassessment Condition: Re-examined, Improved Disposition/Present on Arrival - Present on Arrival Any Indicators Present on Arrival: No History of DVT/PE: No History of Uncontrolled Diabetes: No Urinary Catheter: No History of Decub. Ulcer: No History Surgical Site Infection Following: None - Disposition Have Diagnosis and Disposition been Completed?: Yes Diagnosis: Encounter for wound re-check Disposition: HOME/ ROUTINE Disposition Time: 22:46 Patient Plan: Discharge Condition: GOOD Discharge Instructions (ExitCare): Chronic Wound Care (ED) Additional Instructions: Make sure to see your doctor tomorrow as scheduled by you. Return to emergency if symptoms worsen, fever. Referrals: Brendan Ward MD [Primary Care Provider] - Follow up with primary
[2017-03-13] MEDS ORDERED: Oxycodone/Acetaminophen 10/325 mg Tab PO STA (22:42)
== END 2017-03-13 22:54 | disposition home or self-care (01) ==
LOC: ED 21:43
DX: Z51.89 Encounter for other specified aftercare (principal)

== ENCOUNTER 2017-04-09 04:44 | Inpatient (IN) | payer MEDICAID ==
[2017-04-09 04:52] VITALS: BMI 17.4
--- NOTE | 2017-04-09 05:05 | ED PDOC ---
Arrival/HPI <Fito Simpson - Last Filed: 04/09/17 05:52> - General Historian: Patient - History of Present Illness Time/Duration: < week Symptom Onset: Other (chronic) Symptom Course: Unchanged Severity Level: 6 <Carmen Valadez - Last Filed: 04/09/17 06:47> <Carlos Elliott - Last Filed: 04/09/17 10:13> - General Time Seen by Provider: 04/09/17 04:45 - History of Present Illness Narrative History of Present Illness (Text): 04/09/17 05:04 21 year old male with past medical history of Crohn's disease, vesicular cutaneous fistula and chronic abdominal abscess, presents to the emergency department complaining of right sided back pain at site of fistula. Patient had right lumbar abscess drainage at [facility] [place]. He states that since then, he has wound pain at that site. Patient denies having any fevers or chills. Patient has been using percocet at home for pain which he received from the surgeon to performed the I&D. Patient states that he received 30 day script last week but finished the pills earlier this week. (Carmen Valadez) Past Medical History - Provider Review Nursing Documentation Reviewed: Yes - Infectious Disease Hx of Infectious Diseases: None - Tetanus Immunization Tetanus Immunization: Unknown - Reproductive Currently : No - Cardiac Hx Cardiac Disorders: No - Pulmonary Hx Pneumonia: Yes - Neurological Hx Transient Ischemic Attacks (TIA): No - HEENT Hx HEENT Disorder: No - Renal Hx Renal Disorder: No - Endocrine/Metabolic Hx Endocrine Disorders: No - Hematological/Oncological Hx Anemia: Yes - Integumentary Hx Dermatological Disorder: Yes (RIGHT LOWER BACK FISTULA.DID I&D JANUARY 31 [facility],) Other/Comment: 02-16-17 3 RIGHT ABDOMINAL WALL ABSCESS. WITH LIGHT GREEN DRAINAGE.MEDIUM AMT. - Musculoskeletal/Rheumatological Hx Musculoskeletal Disorders: No Hx Falls: No - Gastrointestinal Hx Crohn's Disease: Yes - Genitourinary/Gynecological Hx Genitourinary Disorders: Yes Hx Urinary Tract Infection: Yes - Psychiatric Hx Anxiety: Yes Hx Substance Use: Yes (H/O) - Surgical History Other/Comment: Colon resection - Anesthesia Hx Anesthesia: Yes Hx Anesthesia Reactions: No Hx Malignant Hyperthermia: No - Suicidal Assessment Feels Threatened In Home Enviroment: No <Carmen Valadez - Last Filed: 04/09/17 06:47> Family/Social History - Physician Review Nursing Documentation Reviewed: Yes Family/Social History: Unknown Family HX Smoking Status: Current Some Days Smoker Hx Alcohol Use: No Hx Substance Use: Yes (H/O) <Carmen Valadez - Last Filed: 04/09/17 06:47> Allergies/Home Meds <Fito Simpson - Last Filed: 04/09/17 05:52> <Carmen Valadez - Last Filed: 04/09/17 06:47> <Carlos Elliott - Last Filed: 04/09/17 10:13> Allergies/Adverse Reactions: Allergies diphenhydramine [From Benadryl] Allergy (Verified 04/09/17 04:52) RASH FISH Allergy (Verified 04/09/17 04:52) RASH ketorolac [From Toradol] Allergy (Verified 04/09/17 04:52) RASH shellfish derived Adverse Reaction (Verified 04/09/17 04:52) ANGIOEDEMA Home Medications: Home Meds Medication Instructions Recorded Confirmed No Known Home Med 04/09/17 04/09/17 Review of Systems - Review of Systems Constitutional: Normal. absent: Fevers ENT: Normal. absent: Hearing Changes, Sore Throat Respiratory: Normal. absent: SOB, Cough Cardiovascular: Normal. absent: Chest Pain, Palpitations, Edema Gastrointestinal: Normal. absent: Abdominal Pain, Constipation, Diarrhea, Nausea, Vomiting Genitourinary Male: Normal. absent: Dysuria, Frequency Musculoskeletal: Normal. absent: Arthralgias, Back Pain Skin: Abscess (draining abcesses note don abdomen and right lower back ) Neurological: Normal. absent: Headache, Dizziness Psychiatric: Normal. absent: Anxiety, Depression <Carmen Valadez - Last Filed: 04/09/17 06:47> Physical Exam Temperature: Afebrile Blood Pressure: Normal Pulse: Regular Respiratory Rate: Normal Appearance: Positive for: Uncomfortable Pain Distress: Moderate Mental Status: Positive for: Alert and Oriented X 3 - Systems Exam Head: Present: Atraumatic, Normocephalic Pupils: Present: PERRL Mouth: Present: Moist Mucous Membranes Respiratory/Chest: Present: Clear to Auscultation. No: Good Air Exchange, Respiratory Distress, Accessory Muscle Use, Wheezes, Rales, Rhonchi Cardiovascular: Present: Regular Rate and Rhythm, Normal S1, S2. No: Murmurs, Irregular Rhythm Abdomen: Present: Tenderness, Normal Bowel Sounds, Other (fistulas present on abdomen ). No: Distention, Peritoneal Signs, Guarding Back: Present: Other (abcess noted on right lumbar region draining small amount of purulent fluid ) Neurological: Present: GCS=15, Speech Normal Skin: Present: Warm, Dry, Normal Color. No: Rashes Psychiatric: Present: Alert, Oriented x 3, Normal Insight, Normal Concentration <Carmen Valadez - Last Filed: 04/09/17 06:47> Medical Decision Making <Fito Simpson - Last Filed: 04/09/17 05:52> <Carmen Valadez - Last Filed: 04/09/17 06:47> <Carlos Elliott - Last Filed: 04/09/17 10:13> ED Course and Treatment: Impression: Pt seen and evaluated with medical delivery technician. Pt, whose past medical history includes Crohn's disease, vesicular cutaneous fistula and chronic abdominal abscess, presented for right-sided back pain at fistula site. Aware and agree with HPI, clinical findings, plan, and management. Plan: -- Dilaudid -- Reassess and disposition (Fito Simpson) 04/09/17 05:14 21 year old male presents for right sided back back 2/2 to chronic fistula Will give Dilaudid 2 mg SC and reassess 04/09/17 06:10 Will check: CBC, CMP, blood cultures, VBG with shock panel and CT of abd/pelvis without contrast (Carmen Valadez) 04/09/17 08:44 Event Planner : Darío Apple MD Report Date : 04/09/2017 08:43:04 PROCEDURE: CT Abdomen and Pelvis without intravenous contrast HISTORY: abd and back fistula COMPARISON: None. FINDINGS: IMPRESSION: As demonstrated previously there is a a right-sided psoas abscess and severe swelling of the iliacus muscle. Gas can be seen within the psoas abscess on the current study extending up to the level of the right kidney. Overall size of the iliopsoas muscle is not significantly changed. The gas collections are new finding. 04/09/17 08:[address] Mckeon and he states he will come down with the resident shortly. 04/09/17 10:12 Dr. Mckeon examined pt, states to admit for further treatment signed out to Dr. Ayoub, accepted admission to his service pt aware of and agrees with plan (Carlos Elliott) - Lab Interpretations Lab Results: 04/09/17 06:09 04/09/17 06:45 Lab Results 04/09/17 06:45: Sodium 141, Chloride 97 L, Potassium 4.6, Carbon Dioxide 28, Anion Gap 21 H, BUN 7, Creatinine 0.7, Est GFR ( Amer) > 60, Est GFR (Non -Af Amer) > 60, Random Glucose 110, Calcium 9.6, Total Bilirubin 0.4, AST 16, ALT 14, Alkaline Phosphatase 111, Total Protein 9.3 H, Albumin 4.3, Globulin 5.0 , Albumin/Globulin Ratio 0.9 L 04/09/17 06:30: pO2 28 L, VBG pH 7.34, VBG pCO2 57.0, VBG HCO3 30.8 H, VBG Total CO2 32.5 H, VBG O2 Sat (Calc) 51.4, VBG Base Excess 3.5 H, VBG Potassium 4.7, Sodium 138.0, Chloride 102.0, Glucose 111 H, Lactate 1.8, FiO2 21.0, Venous Blood Potassium 4.7 04/09/17 06:09: WBC 10.3, RBC 4.70, Hgb 10.5 L, Hct 33.4 L, MCV 71.1 L, MCH 22.3 L, MCHC 31.4, RDW 18.1 H, Plt Count 705 H* D, MPV 7.9 - RAD Interpretation Radiology Orders: 04/09/17 06:09 ABD & PELVIS W/O PO OR IV CONT [CT] Stat - Medication Orders Current Medication Orders: Discontinued Medications Hydromorphone HCl (Dilaudid) 1 mg SC STAT STA Stop: 04/09/17 05:07 Last Admin: 04/09/17 05:39 Dose: 1 mg Hydromorphone HCl (Dilaudid) 2 mg IVP STAT STA Stop: 04/09/17 08:57 Last Admin: 04/09/17 09:17 Dose: 2 mg Piperacillin Sod/Tazobactam Sod (Zosyn 4.5 Gm In Ns 100ml) 4.5 gm in 100 mls @ 200 mls/hr IVPB STAT STA PRN Reason: Protocol Stop: 04/09/17 09:21 Last Admin: 04/09/17 09:18 Dose: 200 mls/hr Sodium Chloride (Sodium Chloride 0.9%) 1,000 mls @ 1,000 mls/hr IV .Q1H STA Stop: 04/09/17 09:55 Last Admin: 04/09/17 09:19 Dose: 1,000 mls/hr Disposition/Present on Arrival <Fito Simpson - Last Filed: 04/09/17 05:52> - Present on Arrival Any Indicators Present on Arrival: No History of DVT/PE: No History of Uncontrolled Diabetes: No Urinary Catheter: No History of Decub. Ulcer: No History Surgical Site Infection Following: None - Disposition Have Diagnosis and Disposition been Completed?: Yes Disposition Time: 06:48 <Carmen Valadez - Last Filed: 04/09/17 06:47> - Disposition Patient Plan: Admission <Carlos Elliott - Last Filed: 04/09/17 10:13> - Disposition Diagnosis: Abdominal fistula Disposition: HOSPITALIZED Patient Problems: Current Active Problems Problem Status Onset Abdominal fistula Acute Condition: STABLE
[2017-04-09] MEDS ORDERED: HYDROmorphone 1 mg/ml ISec SC STA (05:06)
[2017-04-09 06:50] LABS: HEMOGLOBIN 10.5 gm/dL (14.0-18.0); MEAN CELL VOLUME 71.1 fL (80.0-105.0); MEAN CORPUSCULAR HEMOGLOBIN 22.3 pg (25.0-35.0); MEAN CORPUSCULAR HGB CONC 31.4 g/dl (31.0-37.0); MEAN PLATELET VOLUME 7.9 fl (7.0-11.0); RBC 4.7 10^6/uL (3.5-6.1); RED CELL DISTRIBUTION WIDTH 18.1 % (11.5-14.5); WHITE BLOOD COUNT 10.3 10^3/ul (4.5-11.0)
[2017-04-09 06:53] LABS: VENOUS BLOOD GAS BASE EXCESS 3.5 mmol/L (0.0-2.0); VENOUS BLOOD GAS PO2 28 mm/Hg (30-55); VENOUS BLOOD PH 7.34 (7.32-7.43)
[2017-04-09 06:58] LABS: ALB/GLOB RATIO 0.9 (1.1-1.8); ALBUMIN 4.3 g/dL (3.0-4.8); ALT/SGPT 14 U/L (7-56); AST/SGOT 16 U/L (15-59); BLOOD UREA NITROGEN 7 mg/dL (7-21); CALCIUM 9.6 mg/dL (8.4-10.5); GFR AFRICAN-AMERICAN > 60; GFR NON-AFRICAN AMERICAN > 60
--- NOTE | 2017-04-09 08:45 | CT ---
PROCEDURE: CT Abdomen and Pelvis without intravenous contrast HISTORY: abd and back fistula COMPARISON: None. TECHNIQUE: Without oral or IV contrast. The study is limited by absence of abdominal fat. Contrast Dose: Radiation dose: Total exam DLP = 231 mGy-cm. This CT exam was performed using one or more of the following dose reduction techniques: Automated exposure control, adjustment of the mA and/or kV according to patient size, and/or use of iterative reconstruction technique. FINDINGS: LOWER THORAX: Unremarkable. LIVER: Unremarkable. No gross lesion or ductal dilatation. GALLBLADDER AND BILE DUCTS: Unremarkable. PANCREAS: Unremarkable. No gross lesion or ductal dilatation. SPLEEN: Unremarkable. ADRENALS: Unremarkable. No mass. KIDNEYS AND URETERS: Unremarkable. No hydronephrosis. No solid mass. VASCULATURE: Unremarkable BOWEL: Unremarkable. No obstruction. No gross mural thickening. The study is limited by lack of oral contrast material and absence of abdominal fat APPENDIX: Unremarkable. Normal appendix. PERITONEUM: As demonstrated previously there is a a right-sided psoas abscess and severe swelling of the iliacus muscle. A gas can be seen within the psoas abscess on the current study extending up to the level of the right kidney. Overall size of the iliopsoas muscle is not significantly changed. The gas collections are new finding. LYMPH NODES: Unremarkable. No enlarged lymph nodes. BLADDER: Unremarkable. REPRODUCTIVE: Unremarkable. BONES: No acute fracture. OTHER FINDINGS: None. IMPRESSION: As demonstrated previously there is a a right-sided psoas abscess and severe swelling of the iliacus muscle. Gas can be seen within the psoas abscess on the current study extending up to the level of the right kidney. Overall size of the iliopsoas muscle is not significantly changed. The gas collections are new finding.
[2017-04-09] MEDS ORDERED: Piperacill/Tazo 4.5gm in NS 4.5 GM/100 ML BAG IVPB STA (08:52)
[2017-04-09] MEDS ORDERED: HYDROmorphone 2 mg/ml ISec IVP STA (08:56)
[2017-04-09] MEDS ORDERED: Sodium Chloride 0.9% 1,000 ML IV STA (08:56)
--- NOTE | 2017-04-09 10:32 | CP.PCM.CON ---
History of Present Illness - History of Present Illness History of Present Illness: Surgery Consult Note: Patient is a 21 year old male with a PMHx of Crohn's disease, vesicular cutaneous fistula and chronic abdominal abscess who presented to the ED for evaluation of right lower abdominal pain and right lower back pain near his fistula sites. His baseline abdominal pain was exacerbated 3 days ago after eating pizza. It is important to note that the patient underwent [place] [facility] [place]. Admits to nonbloody diarrhea, chills, and cough. Denies fever, chest pain, SOB, N/V, and urinary symptoms. PMH: Crohns on Remicaide Q4-6 wks, anemia PSH: multiple abdominal surgeries, IR & D for abscesses, surgery for fistula excisions x 2 All: Benadryl, Shellfish, FISH, ketoralac SH: Denies ETOH use, current tobacco use, illicit drug use PMD: [facility]: [facility] Review of Systems - Review of Systems Review of Systems: 12 points ROS negative except as indicated in the HPI. Past Patient History - Infectious Disease Hx of Infectious Diseases: None - Tetanus Immunizations Tetanus Immunization: Unknown - Past Medical History & Family History Past Medical History?: Yes - Past Social History Smoking Status: Current Some Days Smoker - CARDIAC Hx Cardiac Disorders: No - PULMONARY Hx Pneumonia: Yes - NEUROLOGICAL Hx Transient Ischemic Attacks (TIA): No - HEENT Hx HEENT Problems: No - RENAL Hx Chronic Kidney Disease: No - ENDOCRINE/METABOLIC Hx Endocrine Disorders: No - HEMATOLOGICAL/ONCOLOGICAL Hx Anemia: Yes - INTEGUMENTARY Hx Dermatological Problems: Yes (RIGHT LOWER BACK FISTULA.DID I&D JANUARY 31 [facility],) Other/Comment: 02-16-17 3 RIGHT ABDOMINAL WALL ABSCESS. WITH LIGHT GREEN DRAINAGE.MEDIUM AMT. - MUSCULOSKELETAL/RHEUMATOLOGICAL Hx Musculoskeletal Disorders: No Hx Falls: No - GASTROINTESTINAL Hx Crohn's Disease: Yes - GENITOURINARY/GYNECOLOGICAL Hx Genitourinary Disorders: Yes Hx Urinary Tract Infection: Yes - PSYCHIATRIC Hx Anxiety: Yes Hx Substance Use: Yes (H/O) - SURGICAL HISTORY Other/Comment: Colon resection - ANESTHESIA Hx Anesthesia: Yes Hx Anesthesia Reactions: No Hx Malignant Hyperthermia: No Meds Allergies/Adverse Reactions: Allergies Allergy/AdvReac Type Severity Reaction Status Date / Time diphenhydramine Allergy RASH Verified 04/09/17 04:52 [From Benadryl] FISH Allergy RASH Verified 04/09/17 04:52 ketorolac [From Toradol] Allergy RASH Verified 04/09/17 04:52 shellfish derived AdvReac ANGIOEDEMA Verified 04/09/17 04:52 Physical Exam - Additional Findings Additional findings: Head: Present: Atraumatic, Normocephalic Pupils: Present: PERRL Mouth: Present: Moist Mucous Membranes Respiratory/Chest: Present: Clear to Auscultation. No: Good Air Exchange, Respiratory Distress, Accessory Muscle Use, Wheezes, Rales, Rhonchi Cardiovascular: Present: Regular Rate and Rhythm, Normal S1, S2. No: Murmurs, Irregular Rhythm Abdomen: Present: Tenderness, Normal Bowel Sounds, Other (fistulas present on abdomen). No: Distention, Peritoneal Signs, Guarding Back: Present: Other (abcess noted on right lumbar region draining small amount of purulent fluid ) Neurological: AAO x 3, no focal deficits Skin: Present: Warm, Dry, Scar tissue present on abdomen, Draining fistulas present on abdomen and back No: Rashes Psychiatric: Present: Alert, Oriented x 3, Normal Insight, Normal Concentration Results - Vital Signs Recent Vital Signs: Last Vital Signs Temp 99.4 F 04/09/17 04:58 Pulse 84 04/09/17 04:58 Resp 14 04/09/17 04:58 BP 108/53 L 04/09/17 04:58 Pulse Ox 98 04/09/17 04:58 - Labs Result Diagrams: 04/09/17 06:09 04/09/17 06:45 Assessment & Plan - Assessment and Plan (Free Text) Assessment: 1. Fistula/Crohn's disease - CT of abd/pelvis reviewed- right-sided psoas abscess and severe swelling of the iliacus muscle. Gas can be seen within the psoas abscess on the current study extending up to the level of the right kidney. Overall size of the iliopsoas muscle is not significantly changed. The gas collections are new finding - Wounds cultures drawn - GI consult - IR consult - F/u am labs - NPO - IVF - Ppx - SCDs - Pain control as per primary - Further medical management as per primary D/w attending.
[2017-04-09] MEDS: Piperacillin/Tazobact 3.375 gm 100 ML IVPB SCH ×2 (11:51→17:33)
[2017-04-09] MEDS: oxyCODONE 15 mg Immediate Release Tab PO PRN ×3 (11:52→23:13)
--- NOTE | 2017-04-09 19:34 | CP.PCM.HP ---
<Fabián Hare - Last Filed: 04/09/17 19:27> History of Present Illness - History of Present Illness History of Present Illness: Patient is a 21 year old male with a past medical history of Crohn's disease, vesicular cutaneous fistula and chronic abdominal abscess who presented to the ED for evaluation of right lower abdominal pain and right lower back pain near his fistula sites. He reports his pain started 3 days prior to presentation. He describes the pain as sharp without radiation from fistula sites. He reports pus drainage from his fistula sites. Patient recently underwent a washout of his posterior fistula at [facility] in February of [address] Delgado. The patient reports diarrhea, chills, weakness and inability to ambulate at home 2/2 to pain. Denies fever, chest pain, shortness of breath, nausea, vomiting and generalized abdominal pain. PMH: Crohns on Remicaide Q4-6 wks, anemia PSH: multiple abdominal surgeries, IR & D for abscesses, surgery for fistula excisions x 2 All: Benadryl, Shellfish, FISH, ketoralac SH: Denies ETOH use, current tobacco use, illicit drug use PMD: [facility] Outpt GI: Spara Present on Admission - Present on Admission Any Indicators Present on Admission: No History of DVT/PE: No History of Uncontrolled Diabetes: No Urinary Catheter: No Review of Systems - Constitutional Constitutional: As Per HPI - EENT Eyes: As Per HPI Ears: As Per HPI Nose/Mouth/Throat: As Per HPI - Cardiovascular Cardiovascular: As Per HPI - Respiratory Respiratory: As Per HPI - Gastrointestinal Gastrointestinal: As Per HPI - Genitourinary Genitourinary: As Per HPI - Reproductive: Male Reproductive:Male: As Per HPI - Musculoskeletal Musculoskeletal: As Per HPI - Integumentary Additional comments: anterior abdominal fistula open with yellow pus drainage, posterior lumbar fistula open with yellow pus drainage - Neurological Neurological: As Per HPI - Psychiatric Psychiatric: As Per HPI - Endocrine Endocrine: As Per HPI Past Patient History - Infectious Disease Hx of Infectious Diseases: None - Tetanus Immunizations Tetanus Immunization: Unknown - Past Medical History & Family History Past Medical History?: Yes - Past Social History Smoking Status: Never Smoked - CARDIAC Hx Cardiac Disorders: No - PULMONARY Hx Pneumonia: Yes - NEUROLOGICAL Hx Transient Ischemic Attacks (TIA): No - HEENT Hx HEENT Problems: No - RENAL Hx Chronic Kidney Disease: No - ENDOCRINE/METABOLIC Hx Endocrine Disorders: No - HEMATOLOGICAL/ONCOLOGICAL Hx Anemia: Yes - INTEGUMENTARY Hx Dermatological Problems: Yes (RIGHT LOWER BACK FISTULA.DID I&D JANUARY 31 [facility],) Other/Comment: 02-16-17 3 RIGHT ABDOMINAL WALL ABSCESS. WITH LIGHT GREEN DRAINAGE.MEDIUM AMT. - MUSCULOSKELETAL/RHEUMATOLOGICAL Hx Musculoskeletal Disorders: No Hx Falls: No - GASTROINTESTINAL Hx Crohn's Disease: Yes - GENITOURINARY/GYNECOLOGICAL Hx Genitourinary Disorders: Yes Hx Urinary Tract Infection: Yes - PSYCHIATRIC Hx Anxiety: Yes - SURGICAL HISTORY Other/Comment: Colon resection - ANESTHESIA Hx Anesthesia: Yes Hx Anesthesia Reactions: No Hx Malignant Hyperthermia: No Meds Allergies/Adverse Reactions: Allergies Allergy/AdvReac Type Severity Reaction Status Date / Time diphenhydramine Allergy RASH Verified 04/09/17 04:52 [From Benadryl] FISH Allergy RASH Verified 04/09/17 04:52 ketorolac [From Toradol] Allergy RASH Verified 04/09/17 04:52 shellfish derived AdvReac ANGIOEDEMA Verified 04/09/17 04:52 Physical Exam - Head Exam Head Exam: ATRAUMATIC, NORMAL INSPECTION, NORMOCEPHALIC - Eye Exam Eye Exam: EOMI, PERRL - ENT Exam ENT Exam: Mucous Membranes Moist, Normal Exam - Neck Exam Neck exam: Positive for: Full Rom, Normal Inspection - Respiratory Exam Respiratory Exam: Clear to Auscultation Bilateral, NORMAL BREATHING PATTERN - Cardiovascular Exam Cardiovascular Exam: REGULAR RHYTHM, +S1, +S2 - GI/Abdominal Exam GI & Abdominal Exam: Normal Bowel Sounds, Soft Additional comments: anterior fistula with yellow pus drainage - Extremities Exam Extremities exam: Positive for: normal capillary refill, normal inspection - Back Exam Additional comments: open fistula with drainage of yellow pus - Neurological Exam Neurological exam: Alert, CN II-XII Intact, Normal Gait, Oriented x3 - Psychiatric Exam Psychiatric exam: Normal Affect, Normal Mood - Skin Skin Exam: Dry, Normal Color, Warm Additional comments: anterior and posterior fistula that are open with yellow pus drainage Results - Vital Signs Recent Vital Signs: Last Vital Signs Temp 98.8 F 04/09/17 18:42 Pulse 82 04/09/17 18:42 Resp 20 04/09/17 18:42 BP 116/79 04/09/17 18:42 Pulse Ox 100 04/09/17 18:42 - Labs Result Diagrams: 04/09/17 06:09 04/09/17 06:45 Assessment & Plan - Assessment and Plan (Free Text) Assessment: Patient is a 21 year old male with a past medical history of Crohn's disease, vesicular cutaneous fistula and chronic abdominal abscess who presented to the ED for evaluation of right lower abdominal pain and right lower back pain near his fistula sites. Plan: 1. Chron's disease with draining fistula's - Hx of episodes of draining fistula - CT abdomen and pelvis showing right sided psoas abscess and severe swelling of the iliacus muscle. Gas can be seen within th epsoas abscess on the current study extending up to the level of the right kidney. Gas collections noted to be new finding. - Wound culture - Consult cardiology - Consult Interventional radiology - Oxycodone 10 prn pain - Linezolid antibiotics 2. History of anemia - H/H 10.5/33.4 - monitor 3. GI/DVT ppx - Protonix - SCDs - Date & Time Date: 04/09/17 Time: 19:47 <José Ayoub - Last Filed: 04/10/17 16:15> Results - Vital Signs Recent Vital Signs: Last Vital Signs Temp 98.1 F 04/10/17 06:00 Pulse 70 04/10/17 06:00 Resp 17 04/10/17 06:00 BP 114/72 04/10/17 06:00 Pulse Ox 100 04/10/17 06:00 - Labs Result Diagrams: 04/10/17 08:07 04/10/17 08:07 Labs: Laboratory Results - last 24 hr 04/10/17 04/10/17 08:07 08:07 WBC 6.1 D RBC 3.98 Hgb 8.7 L Hct 28.3 L MCV 71.1 L MCH 21.9 L MCHC 30.7 L RDW 18.1 H Plt Count 588 H MPV 8.3 Gran % 66.6 Lymph % (Auto) 15.0 L Victoria % (Auto) 15.5 H Eos % (Auto) 2.6 Baso % (Auto) 0.3 Gran # 4.07 Lymph # 0.9 L Victoria # 1.0 H Eos # 0.2 Baso # 0.02 Sodium 139 Potassium 4.6 Chloride 99 Carbon Dioxide 27 Anion Gap 18 BUN 6 L Creatinine 0.7 Est GFR ( Amer) > 60 Est GFR (Non-Af Amer) > 60 Random Glucose 75 Calcium 9.0 Total Bilirubin 0.4 AST 17 ALT 14 Alkaline Phosphatase 91 Total Protein 6.7 Albumin 3.2 Globulin 3.4 Albumin/Globulin Ratio 0.9 L Attending/Attestation - Attestation I have personally seen and examined this patient.: Yes I have fully participated in the care of the patient.: Yes I have reviewed all pertinent clinical information: Yes Notes (Text): 04/10/17 16:12 attending note; patient seen and examined with resident in ER. Patient is a 21 year old male with a past medical history of Crohn's disease, vesicular cutaneous fistula and chronic abdominal abscess who presented to the ED for evaluation of right lower abdominal pain and right lower back pain/ fistula sites. started on IV Zosyn. Wound culture ordered. Surgery evaluation appreciated. CT scan showed right iliopsoas abscess with gas. The patient had recent surgical procedure at [facility] by DR. Delgado. Patient also follows up with Dr. Patrick for remicaide injections. We will review CT scan with IR tomorrow. Opiate dependency; continue OxyContin. Patient does not follow up with PMD regularly. Prognosis is poor. 04/10/17 16:14
[2017-04-09] MEDS ORDERED: Linezolid 600 mg in D5W 300 ml 600 MG/300 ML BAG IVPB SCH (22:00)
[2017-04-10] MEDS: Piperacillin/Tazobact 3.375 gm 100 ML IVPB SCH ×4 (00:51→17:12)
[2017-04-10] MEDS: oxyCODONE 15 mg Immediate Release Tab PO PRN ×4 (05:30→23:04)
--- NOTE | 2017-04-10 07:54 | CP.PCM.CON ---
<Ondina Parham - Last Filed: 04/10/17 09:14> History of Present Illness - History of Present Illness History of Present Illness: PGY-[address] Cleveland ID consult: Intraabdominal infection in setting of IBD 21 year old male with PMH Crohn's disease, vesicular cutaneous fistula and chronic abdominal abscess presented to the ED for evaluation of sudden worsening of right lower abdominal pain and right lower back pain near his fistula sites. The pain at both sites started 3 days prior. The pain is sharp, 7 -8/10, without radiation, associated with pus drainage from his fistula sites ( 3 under umbilicus, draining; RLQ, closed; L back, draining). Patient recently underwent a washout of his posterior fistula at [facility] in February of [address] Delgado, finished a course of IV and PO antibiotics. (+) Pt reports diarrhea, chills, weakness and inability to ambulate at home due to pain. For his Crohn's , at baseline, pt has 2-3 diarrhea/loose formed stool, and abdominal cramps every other day. Denies blood in stool or change in color. Denies sick contact. (+) contact with dog at home Upon ED arrival (04/09), T 99/4, HR 84, 108/53 WBC 10.3, H/H 10.5/33.4, Platelet 705 (high) Lactate 1.8 Bun/Cre = 7/0.7 AST/ALT/AP = wnl Pt is on zosyn day 2. Blood culture (04/09) - no growth Abdominal wound culture (04/09) - pending (G neg rods) Back wound culture (04/09) pending (no organism) Hx abdominal wound (02/19/17) - Klebsiella pneumonia (resistamnt to ampicillin, aztreonam, cefazolin, cefepime, ceftriaxone) (12/31/16) - Klebsiella pneumonia, citrobacter freundii, sundeep (12/04/16) - Vanco resistant E faecium, coagulase neg staph (11/27/16) - VRE and Sundeep albicans ROS: (+) Diarrhea, Chills, pain preventing ambulation Denies fever, chest pain, shortness of breath, nausea, vomiting and generalized abdominal pain. PMH: Crohns on infliximab (Remicaide) Q4-6 wks, anemia PSH: Colon resection multiple abdominal surgeries, I & D for abscesses, surgery for fistula excisions x 2 01/31/17, R lower back fistular, s/p I&D, [facility] 02-16-17, 3 R abdominal wall abscess, with light green drainage, medium SH: Denies ETOH use, current tobacco use, illicit drug use. Live with mom and dog All: Benadryl (rash), Shellfish (angioedema), FISH, ketoralac (rash) Med: No PMD: Pt states that he has no PMD Outpt GI: Spara Past Patient History - Infectious Disease Hx of Infectious Diseases: None - Tetanus Immunizations Tetanus Immunization: Unknown - Past Medical History & Family History Past Medical History?: Yes - Past Social History Smoking Status: Never Smoked - CARDIAC Hx Cardiac Disorders: No - PULMONARY Hx Pneumonia: Yes - NEUROLOGICAL Hx Transient Ischemic Attacks (TIA): No - HEENT Hx HEENT Problems: No - RENAL Hx Chronic Kidney Disease: No - ENDOCRINE/METABOLIC Hx Endocrine Disorders: No - HEMATOLOGICAL/ONCOLOGICAL Hx Anemia: Yes - INTEGUMENTARY Hx Dermatological Problems: Yes (RIGHT LOWER BACK FISTULA.DID I&D JANUARY 31 [facility],) Other/Comment: 02-16-17 3 RIGHT ABDOMINAL WALL ABSCESS. WITH LIGHT GREEN DRAINAGE.MEDIUM AMT. - MUSCULOSKELETAL/RHEUMATOLOGICAL Hx Musculoskeletal Disorders: No Hx Falls: No - GASTROINTESTINAL Hx Crohn's Disease: Yes - GENITOURINARY/GYNECOLOGICAL Hx Genitourinary Disorders: Yes Hx Urinary Tract Infection: Yes - PSYCHIATRIC Hx Anxiety: Yes - SURGICAL HISTORY Other/Comment: Colon resection - ANESTHESIA Hx Anesthesia: Yes Hx Anesthesia Reactions: No Hx Malignant Hyperthermia: No Meds Allergies/Adverse Reactions: Allergies Allergy/AdvReac Type Severity Reaction Status Date / Time diphenhydramine Allergy RASH Verified 04/09/17 04:52 [From Benadryl] FISH Allergy RASH Verified 04/09/17 04:52 ketorolac [From Toradol] Allergy RASH Verified 04/09/17 04:52 shellfish derived AdvReac ANGIOEDEMA Verified 04/09/17 04:52 - Medications Medications: Current Medications Piperacillin Sod/Tazobactam Sod (Zosyn 3.375 In Ns 100ml) 100 mls @ 200 mls/hr IVPB Q6 BRYANT PRN Reason: Protocol Stop: 04/16/17 12:01 Last Admin: 04/10/17 05:30 Dose: 200 mls/hr Metronidazole (Flagyl) 500 mg PO Q8 BRYANT PRN Reason: Protocol Last Admin: 04/10/17 06:57 Dose: 500 mg Ondansetron HCl (Zofran Inj) 4 mg IVP Q4H PRN PRN Reason: Nausea/Vomiting Oxycodone HCl (Oxycodone Immediate Release Tab) 15 mg PO Q6H PRN PRN Reason: Pain, moderate (4-7) Last Admin: 04/10/17 05:30 Dose: 15 mg Pantoprazole Sodium (Protonix Inj) 40 mg IVP DAILY [facility] Last Admin: 04/09/17 11:51 Dose: 40 mg Physical Exam - Constitutional Appears: Chronically Ill, Other (underwt) - Head Exam Head Exam: ATRAUMATIC, NORMAL INSPECTION, NORMOCEPHALIC - Eye Exam Eye Exam: EOMI, Normal appearance, PERRL. absent: Scleral icterus Pupil Exam: NORMAL ACCOMODATION - ENT Exam ENT Exam: Mucous Membranes Moist - Neck Exam Additional comments: supple - Respiratory Exam Respiratory Exam: Clear to Auscultation Bilateral. absent: Rales, Rhonchi, Wheezes - Cardiovascular Exam Cardiovascular Exam: REGULAR RHYTHM, +S1, +S2. absent: Systolic Murmur - GI/Abdominal Exam GI & Abdominal Exam: Guarding, Normal Bowel Sounds, Soft, Tenderness (epigastric , RLQ, R back. (+) serous/yellowish drainage; 3 fistula under umbilicus, draining; RLQ fistula, closed; L back fistula, draining). absent: Distended, Firm, Rigid - Extremities Exam Extremities exam: Positive for: normal capillary refill, pedal pulses present. Negative for: calf tenderness, pedal edema - Neurological Exam Neurological exam: Alert, Oriented x3 - Psychiatric Exam Psychiatric exam: Normal Affect, Normal Mood - Skin Skin Exam: Dry, Warm Results - Vital Signs Recent Vital Signs: Last Vital Signs Temp 98.8 F 04/09/17 18:42 Pulse 82 04/09/17 18:42 Resp 20 04/09/17 18:42 BP 116/79 04/09/17 18:42 Pulse Ox 100 04/09/17 18:42 - Labs Result Diagrams: 04/10/17 08:07 04/09/17 06:45 Assessment & Plan - Assessment and Plan (Free Text) Plan: 21 year old male with PMH Crohn's disease, vesicular cutaneous fistula and chronic abdominal abscess admitted for sudden worsening of right lower abdominal pain and right lower back pain near his fistula sites. 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 Plan - continue monitor clinical course - Pending IR/surg decision on I&D - continue zosyn (day 2) and flagyl PO (day 1) Culture Blood culture (04/09) - no growth Abdominal wound culture (04/09) - pending (G neg rods) Back wound culture (04/09) pending (no organism) Hx abdominal wound (02/19/17) - Klebsiella pneumonia (resistamnt to ampicillin, aztreonam, cefazolin, cefepime, ceftriaxone) (12/31/16) - Klebsiella pneumonia, citrobacter freundii, sundeep (12/04/16) - Vanco resistant E faecium, coagulase neg staph (11/27/16) - VRE and Sundeep albicans Imaging (04/09) CT abdomen and pelvis showing right sided psoas abscess and severe swelling of the iliacus muscle. Gas can be seen within psoas abscess on the current study extending up to the level of the right kidney. Gas collections noted to be new finding. No hydronephrosis Will s/d/r/w Dr. Cleveland - Date & Time Date: 04/10/17 Time: 09:02 <Ezekiel Cleveland - Last Filed: 04/10/17 10:32> Meds - Medications Medications: Current Medications Piperacillin Sod/Tazobactam Sod (Zosyn 3.375 In Ns 100ml) 100 mls @ 200 mls/hr IVPB Q6 BRYANT PRN Reason: Protocol Stop: 04/16/17 12:01 Last Admin: 04/10/17 05:30 Dose: 200 mls/hr Ondansetron HCl (Zofran Inj) 4 mg IVP Q4H PRN PRN Reason: Nausea/Vomiting Oxycodone HCl (Oxycodone Immediate Release Tab) 15 mg PO Q6H PRN PRN Reason: Pain, moderate (4-7) Last Admin: 04/10/17 05:30 Dose: 15 mg Pantoprazole Sodium (Protonix Inj) 40 mg IVP DAILY BRYANT Last Admin: 04/09/17 11:51 Dose: 40 mg Results - Vital Signs Recent Vital Signs: Last Vital Signs Temp 98.1 F 04/10/17 06:00 Pulse 70 04/10/17 06:00 Resp 17 04/10/17 06:00 BP 114/72 04/10/17 06:00 Pulse Ox 100 04/10/17 06:00 - Labs Result Diagrams: 04/10/17 08:07 04/09/17 06:45 Labs: Laboratory Results - last 24 hr 04/10/17 08:07 WBC 6.1 D RBC 3.98 Hgb 8.7 L Hct 28.3 L MCV 71.1 L MCH 21.9 L MCHC 30.7 L RDW 18.1 H Plt Count 588 H MPV 8.3 Gran % 66.6 Lymph % (Auto) 15.0 L Person % (Auto) 15.5 H Eos % (Auto) 2.6 Baso % (Auto) 0.3 Gran # 4.07 Lymph # 0.9 L Person # 1.0 H Eos # 0.2 Baso # 0.02 Assessment & Plan - Assessment and Plan (Free Text) Plan: Infectious Diseases Attending Physician Attestation Patient seen and examined, discussed with medical records specialist. I have reviewed the pertinent clinical information for this patient. I agree with the above findings , assessment and plan. In addition, we will add Zyvox in addition to Zosyn for this patient with right psoas abscess in a patient with uncontrolled Crohn's disease with multiple enterocutaneous fistulas. Awaiting further surgical plans for this patient and plan for the abscess (ie. plan for drainage). Will follow up wound cx and blood cx. Will monitor clinically.
[2017-04-10 08:14] LABS: BASO # 0.02 K/mm3 (0.0-2.0); BASO % 0.3 % (0.0-3.0); EOS # 0.2 (0.0-0.7); EOS % 2.6 % (1.5-5.0); GRAN # 4.07 (1.4-6.5); GRAN % 66.6 % (50.0-68.0); HEMOGLOBIN 8.7 gm/dL (14.0-18.0); LYMPH # 0.9 (1.2-3.4); MEAN CELL VOLUME 71.1 fL (80.0-105.0); MEAN CORPUSCULAR HEMOGLOBIN 21.9 pg (25.0-35.0); MEAN CORPUSCULAR HGB CONC 30.7 g/dl (31.0-37.0); MEAN PLATELET VOLUME 8.3 fl (7.0-11.0); MONO % 15.5 % (1.0-6.0); PLATELET COUNT 588 10^3/uL (120.0-450.0); RBC 3.98 10^6/uL (3.5-6.1); RED CELL DISTRIBUTION WIDTH 18.1 % (11.5-14.5); WHITE BLOOD COUNT 6.1 10^3/ul (4.5-11.0)
--- NOTE | 2017-04-10 08:35 | CP.PCM.PN ---
Subjective - Date & Time of Evaluation Date of Evaluation: 04/10/17 Time of Evaluation: 07:10 - Subjective Subjective: Surgery Progress Note for Dr. Mckeon Patient seen and examined at bedside. No acute events overnight reported. Patient receiving AM medications at time of exam. Still complaining of abdominal pain, reports persistence x2-3 days prior to admission. Reports greenish drainage on bandages after last dressing changed. Refused observation of drainage sites at this time, requested team examine sites later. Denies chest pain, shortness of breath, nausea, emesis. Objective - Vital Signs/Intake and Output Vital Signs (last 24 hours): Temp Pulse Resp BP Pulse Ox 98.8 F 82 20 116/79 100 04/09/17 18:42 04/09/17 18:42 04/09/17 18:42 04/09/17 18:42 04/09/17 18:42 Intake and Output: 04/10/17 04/10/17 06:59 18:59 Intake Total 360 Output Total 600 Balance -240 - Medications Medications: Current Medications Piperacillin Sod/Tazobactam Sod (Zosyn 3.375 In Ns 100ml) 100 mls @ 200 mls/hr IVPB Q6 BRYANT PRN Reason: Protocol Stop: 04/16/17 12:01 Last Admin: 04/10/17 05:30 Dose: 200 mls/hr Metronidazole (Flagyl) 500 mg PO Q8 BRYANT PRN Reason: Protocol Last Admin: 04/10/17 06:57 Dose: 500 mg Ondansetron HCl (Zofran Inj) 4 mg IVP Q4H PRN PRN Reason: Nausea/Vomiting Oxycodone HCl (Oxycodone Immediate Release Tab) 15 mg PO Q6H PRN PRN Reason: Pain, moderate (4-7) Last Admin: 04/10/17 05:30 Dose: 15 mg Pantoprazole Sodium (Protonix Inj) 40 mg IVP DAILY [facility] Last Admin: 04/09/17 11:51 Dose: 40 mg - Labs Labs: 04/10/17 08:07 - Additional Findings Additional findings: - Head Exam Head Exam: ATRAUMATIC, NORMAL INSPECTION, NORMOCEPHALIC - Eye Exam Eye Exam: EOMI, Normal Appearance. Absent: Scleral icterus, Conjunctival injection - ENT Exam ENT Exam: Mucous Membranes Moist, Normal Exam - Neck Exam Neck exam: Normal Inspection. Absent: Thyromegaly - Respiratory Exam Respiratory Exam: Clear to Auscultation Bilateral, NORMAL BREATHING PATTERN. Absent: Rales, Wheezes, Ronchi, Tachypnea, Calvin Cyanosis - Cardiovascular Exam Cardiovascular Exam: REGULAR RHYTHM, RRR, +S1, +S2. Absent: Bradycardia, Tachycardia, Irregular Rhythm - GI/Abdominal Exam GI & Abdominal Exam: Normal Bowel Sounds, Soft, Guarding, Tenderness to palpation (at Lower quadrants and at/around fistula sites), anterior fistula bandaging in place, no drainage through bandaging. Absent: Firm/Rigid, Absent/ Diminished breath sounds - Extremities Exam Extremities exam: Normal Inspection, Normal capillary refill, Pedal pulses (+2 dorsalis pedis bilaterally) - Neurological Exam Neurological exam: Alert, Awake, Oriented x3, following commands appropriately, spontaneously moving all extremities - Psychiatric Exam Psychiatric exam: Normal Affect, Normal Mood - Skin Skin Exam: Dry, Normal Color, Warm, Bandaged fistula as noted in Abd exam Assessment and Plan - Assessment and Plan (Free Text) Assessment: This is a 21 yo AA M with a PMH of Crohn's, vesicular cutaneous fistula, chronic abdominal abscess, and non-compliance who presented for right lower abdominal pain and right lower back pain near fistula sites. Plan: 1) Crohn's with multiple fistulas -CT of abd/pelvis notable for right-sided psoas abscess and severe swelling of the iliacus muscle. Gas within the psoas abscess extending up to the level of the right kidney. The gas collections are new finding compared to prior scans -Wounds cultures drawn, defer to IR for management of abscess -Advanced to regular diet -Abx coverage with PO Flagyl, IV Zosyn -GI ppx with Protonix, DVT ppx with SCDs -Pain control as per primary, hx of pain seeking behavior -Further medical management as per primary team No indication for surgical intervention at this time, we will continue to follow peripherally while patient remains in hospital. Will discuss with Dr. Mckeon.
[2017-04-10 12:00] LABS: ALB/GLOB RATIO 0.9 (1.1-1.8); ALBUMIN 3.2 g/dL (3.0-4.8); ALT/SGPT 14 U/L (7-56); AST/SGOT 17 U/L (15-59); BLOOD UREA NITROGEN 6 mg/dL (7-21); GFR AFRICAN-AMERICAN > 60; GFR NON-AFRICAN AMERICAN > 60
--- NOTE | 2017-04-10 13:13 | CP.PCM.PN ---
<Fabián Hare - Last Filed: 04/10/17 13:28> Subjective - Date & Time of Evaluation Date of Evaluation: 04/10/17 Time of Evaluation: 13:09 - Subjective Subjective: Pt s/e at bedside on [facility] this AM. No acute events overnight. The patient reports continued expression of yellow pus from fistula sites. He denies chest pain, shortness of breath, abdominal pain, nausea, vomiting, fever. Objective - Vital Signs/Intake and Output Vital Signs (last 24 hours): Temp Pulse Resp BP Pulse Ox 98.1 F 70 17 114/72 100 04/10/17 06:00 04/10/17 06:00 04/10/17 06:00 04/10/17 06:00 04/10/17 06:00 Intake and Output: 04/10/17 04/10/17 06:59 18:59 Intake Total 360 Output Total 600 Balance -240 - Medications Medications: Current Medications Piperacillin Sod/Tazobactam Sod (Zosyn 3.375 In Ns 100ml) 100 mls @ 200 mls/hr IVPB Q6 [facility] PRN Reason: Protocol Stop: 04/16/17 12:01 Last Admin: 04/10/17 11:10 Dose: 200 mls/hr Ondansetron HCl (Zofran Inj) 4 mg IVP Q4H PRN PRN Reason: Nausea/Vomiting Oxycodone HCl (Oxycodone Immediate Release Tab) 15 mg PO Q6H PRN PRN Reason: Pain, moderate (4-7) Last Admin: 04/10/17 11:10 Dose: 15 mg Pantoprazole Sodium (Protonix Inj) 40 mg IVP DAILY [facility] Last Admin: 04/10/17 11:09 Dose: 40 mg - Labs Labs: 04/10/17 08:07 04/10/17 08:07 - Constitutional Appears: Well - Head Exam Head Exam: ATRAUMATIC, NORMAL INSPECTION - Eye Exam Eye Exam: EOMI, PERRL - ENT Exam ENT Exam: Mucous Membranes Moist, Normal Exam - Neck Exam Neck Exam: Full ROM - Respiratory Exam Respiratory Exam: Clear to Ausculation Bilateral, NORMAL BREATHING PATTERN - Cardiovascular Exam Cardiovascular Exam: REGULAR RHYTHM, +S1, +S2 - GI/Abdominal Exam GI & Abdominal Exam: Soft, Normal Bowel Sounds Additional comments: open draining fistula present on mid anterior portion of abdomen - Extremities Exam Extremities Exam: Full ROM, Normal Capillary Refill, Normal Inspection - Back Exam Back Exam: NORMAL INSPECTION - Neurological Exam Neurological Exam: Alert, CN II-XII Intact, Normal Gait, Oriented x3 Neuro motor strength exam: Left Upper Extremity: 5, Right Upper Extremity: 5, Left Lower Extremity: 5, Right Lower Extremity: 5 - Psychiatric Exam Psychiatric exam: Normal Affect, Normal Mood - Skin Skin Exam: Intact, Warm Additional comments: Anterior and posterior fistulas present with drainage of yellow pus Assessment and Plan (1) Abdominal fistula Status: Acute (2) Vesicocutaneous fistula Status: Chronic - Assessment and Plan (Free Text) Assessment: Pt is a 21 year old male with PMH of Chron's disease and vesicocutaneous fistulas present on anterior abdomen and posterior lower back that presents with drainage of his fistulas and abdominal pain. Plan: 1. Chron's disease with draining fistula's - Hx of episodes of draining fistula - CT abdomen and pelvis showing right sided psoas abscess and severe swelling of the iliacus muscle. Gas can be seen within th epsoas abscess on the current study extending up to the level of the right kidney. Gas collections noted to be new finding. - Wound culture of back showed GNR and Gram positive Cocci - Wound culture of abdomen positive for GNR - Consult surgery, appreciate recs - Consult ID, recommend add Zyvox in addition to Zosyn and discontinue flagyl - Consult Interventional radiology, appreciate recs - Oxycodone 10 prn pain - Continue to monitor 2. History of anemia - H/H decreased to 8.7/28.3 3. GI/DVT ppx - Protonix - SCDs dispo: Will discuss with consulting services with plan for possible discharge in next 24-48 hours <José Ayoub - Last Filed: 04/10/17 16:17> Objective - Vital Signs/Intake and Output Vital Signs (last 24 hours): Temp Pulse Resp BP Pulse Ox 98.1 F 70 17 114/72 100 04/10/17 06:00 04/10/17 06:00 04/10/17 06:00 04/10/17 06:00 04/10/17 06:00 Intake and Output: 04/10/17 04/10/17 06:59 18:59 Intake Total 360 Output Total 600 Balance -240 - Medications Medications: Current Medications Acetaminophen (Tylenol 325mg Tab) 650 mg PO Q6H PRN PRN Reason: Pain, moderate (4-7) Last Admin: 04/10/17 14:31 Dose: 650 mg Piperacillin Sod/Tazobactam Sod (Zosyn 3.375 In Ns 100ml) 100 mls @ 200 mls/hr IVPB Q6 [facility] PRN Reason: Protocol Stop: 04/16/17 12:01 Last Admin: 04/10/17 11:10 Dose: 200 mls/hr Linezolid (Zyvox 600mg/300ml D5w) 600 mg in 300 mls @ 200 mls/hr IVPB Q12 [facility] PRN Reason: Protocol Stop: 04/15/17 22:01 Ondansetron HCl (Zofran Inj) 4 mg IVP Q4H PRN PRN Reason: Nausea/Vomiting Oxycodone HCl (Oxycodone Immediate Release Tab) 15 mg PO Q6H PRN PRN Reason: Pain, moderate (4-7) Last Admin: 04/10/17 11:10 Dose: 15 mg Pantoprazole Sodium (Protonix Inj) 40 mg IVP DAILY [facility] Last Admin: 04/10/17 11:09 Dose: 40 mg - Labs Labs: 04/10/17 08:07 04/10/17 08:07 Attending/Attestation - Attestation I have personally seen and examined this patient.: Yes I have fully participated in the care of the patient.: Yes I have reviewed all pertinent clinical information, including history, physical exam and plan: Yes Notes (Text): 04/10/17 16:16 attending note; patient seen and examined with resident in ER. Patient is a 21 year old male with a past medical history of Crohn's disease, vesicular cutaneous fistula and chronic abdominal abscess who presented to the ED for evaluation of right lower abdominal pain and right lower back pain/ fistula sites. started on IV Zosyn. Wound culture ordered. Surgery evaluation appreciated. CT scan showed right iliopsoas abscess with gas. The patient had recent surgical procedure [place] [facility] [place]. Del[place]. Patient also follows up with Dr. Patrick for remicaide injections. CT scan reviewed with Dr. Hasmukh Farmer. Advised to continue IV antibiotics. Monitor cbc closely. Opiate dependency; continue OxyContin. Patient does not follow up with PMD regularly.
[2017-04-10 16:48] VITALS: RESP 20
[2017-04-10] MEDS: Linezolid 600 mg in D5W 300 ml 600 MG/300 ML BAG IVPB SCH (21:40)
[2017-04-10] MEDS: Simethicone 80 mg Chewtab PO PRN (22:30)
[2017-04-11] MEDS: Piperacillin/Tazobact 3.375 gm 100 ML IVPB SCH ×2 (01:06→06:06)
[2017-04-11] MEDS: oxyCODONE 15 mg Immediate Release Tab PO PRN ×4 (04:36→22:10)
[2017-04-11] MEDS: Simethicone 80 mg Chewtab PO PRN (04:37)
--- NOTE | 2017-04-11 06:37 | CP.PCM.PN ---
Addendum entered and electronically signed by Ondina Parham DO 04/11/17 08:44 : Pt refused IV ABX because the burning pain from IV site compounded with abd/ back pain is intolerable. Not controlled by oxycodone IR 15mg PRN will give morphine 1mg x 1 with today's IV abx Original Note: <Ondina Parham - Last Filed: 04/11/17 08:38> Subjective - Date & Time of Evaluation Date of Evaluation: 04/11/17 Time of Evaluation: 06:34 - Subjective Subjective: PGY-[address] Cleveland T 99.2 last evening Pt refused SCD boots. Pt did his own dressing change. Refused wound care by RN + BM yesterday, formed stool. Pt ambulate to bathroom. No c/o f/c, n/v/d/c, cp, sob, dysuria Objective - Vital Signs/Intake and Output Vital Signs (last 24 hours): Temp Pulse Resp BP Pulse Ox 99.2 F 76 20 118/66 98 04/10/17 16:00 04/10/17 16:00 04/10/17 16:00 04/10/17 16:00 04/10/17 16:00 Intake and Output: 04/10/17 04/11/17 18:59 06:59 Intake Total 780 Output Total 1600 Balance -820 - Medications Medications: Current Medications Acetaminophen (Tylenol 325mg Tab) 650 mg PO Q6H PRN PRN Reason: Pain, moderate (4-7) Last Admin: 04/11/17 02:07 Dose: 650 mg Piperacillin Sod/Tazobactam Sod (Zosyn 3.375 In Ns 100ml) 100 mls @ 200 mls/hr IVPB Q6 [facility] PRN Reason: Protocol Stop: 04/16/17 12:01 Last Admin: 04/11/17 06:06 Dose: Not Given Linezolid (Zyvox 600mg/300ml D5w) 600 mg in 300 mls @ 200 mls/hr IVPB Q12 [facility] PRN Reason: Protocol Stop: 04/15/17 22:01 Last Admin: 04/10/17 21:40 Dose: 200 mls/hr Ondansetron HCl (Zofran Inj) 4 mg IVP Q4H PRN PRN Reason: Nausea/Vomiting Oxycodone HCl (Oxycodone Immediate Release Tab) 15 mg PO Q6H PRN PRN Reason: Pain, moderate (4-7) Last Admin: 04/11/17 04:36 Dose: 15 mg Pantoprazole Sodium (Protonix Inj) 40 mg IVP DAILY [facility] Last Admin: 04/10/17 11:10 Dose: Not Given Simethicone (Mylicon Chew Tab) 80 mg PO [facility] PRN PRN Reason: GI distress Last Admin: 04/11/17 04:37 Dose: 80 mg - Labs Labs: 04/10/17 08:07 04/10/17 08:07 - Constitutional Appears: No Acute Distress - Head Exam Head Exam: ATRAUMATIC, NORMAL INSPECTION, NORMOCEPHALIC - Eye Exam Eye Exam: EOMI, Normal appearance, PERRL. absent: Scleral icterus Pupil Exam: NORMAL ACCOMODATION - ENT Exam ENT Exam: Mucous Membranes Moist - Respiratory Exam Respiratory Exam: Clear to Ausculation Bilateral. absent: Rales, Rhonchi, Wheezes - Cardiovascular Exam Cardiovascular Exam: REGULAR RHYTHM, +S1, +S2 - GI/Abdominal Exam GI & Abdominal Exam: Soft, Tenderness (Pt refused abdominal exam. fistula at abdomen and back decreases in draining) - Extremities Exam Extremities Exam: Normal Capillary Refill. absent: Calf Tenderness, Pedal Edema - Neurological Exam Neurological Exam: Alert, Awake, Oriented x3 - Psychiatric Exam Psychiatric exam: Normal Affect, Normal Mood - Skin Skin Exam: Dry, Warm Assessment and Plan - Assessment and Plan (Free Text) Plan: 21 year old male with PMH uncontrolled Crohn's disease and med non-compliance, vesicular cutaneous fistula and chronic abdominal abscess admitted for sudden worsening of right lower abdominal pain and right lower back pain near his fistula sites. 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 Trend Temp/fever - Pending IR/surg decision on I&D - continue zosyn (day 3) and Zyvox (day 2) Culture Blood culture (04/09) - no growth x 1 day Abdominal wound culture (04/09) - Gram neg rods Back wound culture (04/09) Gram neg rods & Gram Pos Cocci Hx abdominal wound (02/19/17) - Klebsiella pneumonia (resistamnt to ampicillin, aztreonam, cefazolin, cefepime, ceftriaxone) (12/31/16) - Klebsiella pneumonia, citrobacter freundii, sundeep (12/04/16) - Vanco resistant E faecium, coagulase neg staph (11/27/16) - VRE and Sundeep albicans Imaging (04/09) CT abdomen and pelvis showing right sided psoas abscess and severe swelling of the iliacus muscle. Gas can be seen within psoas abscess on the current study extending up to the level of the right kidney. Gas collections noted to be new finding. No hydronephrosis Will s/d/r/w Dr. Cleveland <Ezekiel Cleveland S - Last Filed: 04/11/17 10:37> Objective - Vital Signs/Intake and Output Vital Signs (last 24 hours): Temp Pulse Resp BP Pulse Ox 98.6 F 70 20 103/65 100 04/11/17 06:00 04/11/17 06:00 04/11/17 06:00 04/11/17 06:00 04/11/17 06:00 Intake and Output: 04/11/17 04/11/17 06:59 18:59 Intake Total 780 480 Output Total 1600 600 Balance -820 -120 - Medications Medications: Current Medications Acetaminophen (Tylenol 325mg Tab) 650 mg PO Q6H PRN PRN Reason: Pain, moderate (4-7) Last Admin: 04/11/17 02:07 Dose: 650 mg Piperacillin Sod/Tazobactam Sod (Zosyn 3.375 In Ns 100ml) 100 mls @ 200 mls/hr IVPB Q6 [facility] PRN Reason: Protocol Stop: 04/16/17 12:01 Last Admin: 04/11/17 06:06 Dose: Not Given Linezolid (Zyvox 600mg/300ml D5w) 600 mg in 300 mls @ 200 mls/hr IVPB Q12 [facility] PRN Reason: Protocol Stop: 04/15/17 22:01 Last Admin: 04/10/17 21:40 Dose: 200 mls/hr Ondansetron HCl (Zofran Inj) 4 mg IVP Q4H PRN PRN Reason: Nausea/Vomiting Oxycodone HCl (Oxycodone Immediate Release Tab) 15 mg PO Q6H PRN PRN Reason: Pain, moderate (4-7) Last Admin: 04/11/17 10:13 Dose: 15 mg Pantoprazole Sodium (Protonix Inj) 40 mg IVP DAILY [facility] Last Admin: 04/11/17 10:13 Dose: 40 mg Simethicone (Mylicon Chew Tab) 80 mg PO [facility] PRN PRN Reason: GI distress Last Admin: 04/11/17 04:37 Dose: 80 mg - Labs Labs: 04/11/17 07:00 04/11/17 07:00 Assessment and Plan - Assessment and Plan (Free Text) Plan: Infectious diseases Attending Physician attestation Patient seen and examined, discussed with medical data entry clerk. I have reviewed the pertinent clinical information for this patient. I agree with the above findings , assessment and plan. Wound cx is showing MSSA, E. coli and Klebsiella. We can switch antibiotics to CEftriaxone and will monitor patient. Follow up surgical plans.
[2017-04-11 07:30] LABS: BASO # 0.02 K/mm3 (0.0-2.0); BASO % 0.2 % (0.0-3.0); EOS # 0.1 (0.0-0.7); EOS % 0.8 % (1.5-5.0); GRAN # 7.56 (1.4-6.5); GRAN % 78.1 % (50.0-68.0); HEMOGLOBIN 9.1 g/dL (14.0-18.0); LYMPH # 0.8 (1.2-3.4); LYMPH % 8.7 % (22.0-35.0); MEAN CELL VOLUME 70.8 fl (80.0-105.0); MEAN CORPUSCULAR HEMOGLOBIN 21.8 pg (25.0-35.0); MEAN CORPUSCULAR HGB CONC 30.7 g/dl (31.0-37.0); MEAN PLATELET VOLUME 8.1 fl (7.0-11.0); MONO # 1.2 (0.1-0.6); MONO % 12.2 % (1.0-6.0); PLATELET COUNT 693 10^3/uL (120.0-450.0); RBC 4.18 10^6/uL (3.5-6.1); RED CELL DISTRIBUTION WIDTH 17.8 % (11.5-14.5); WHITE BLOOD COUNT 9.7 10^3/ul (4.5-11.0)
[2017-04-11 07:46] LABS: ALBUMIN 3.7 g/dL (3.0-4.8); ALT/SGPT 17 U/L (7-56); AST/SGOT 42 U/L (15-59); BLOOD UREA NITROGEN 4 mg/dL (7-21); CALCIUM 9.2 mg/dL (8.4-10.5); GFR AFRICAN-AMERICAN > 60; GFR NON-AFRICAN AMERICAN > 60
[2017-04-11] MEDS ORDERED: Morphine 2 mg/ml ISec IVP ONE (10:00)
[2017-04-11] MEDS: Linezolid 600 mg in D5W 300 ml 600 MG/300 ML BAG IVPB SCH (11:01)
[2017-04-11] MEDS: cefTRIAXone 1 gm 1 GM/100 ML BAG IVPB SCH (11:01)
--- NOTE | 2017-04-11 13:08 | CP.PCM.PN ---
<Fabián Hare - Last Filed: 04/11/17 13:32> Subjective - Date & Time of Evaluation Date of Evaluation: 04/11/17 Time of Evaluation: 13:06 - Subjective Subjective: Patient s/e bedside on F this AM. No acute events overnight. Patient continues to have purulent drainage from posterior and anterior fistula sites. Per notes patient is refusing wound dressing. Pt complains of lower back pain and tenderness as well as abdominal discomfort located in proximity to his draining cutaneous fistulas. Patient denies chest pain, shortness of breath, change in bowel, fever, chills, nausea and vomiting. Objective - Vital Signs/Intake and Output Vital Signs (last 24 hours): Temp Pulse Resp BP Pulse Ox 98.6 F 70 20 103/65 100 04/11/17 06:00 04/11/17 06:00 04/11/17 06:00 04/11/17 06:00 04/11/17 06:00 Intake and Output: 04/11/17 04/11/17 06:59 18:59 Intake Total 780 480 Output Total 1600 600 Balance -820 -120 - Medications Medications: Current Medications Acetaminophen (Tylenol 325mg Tab) 650 mg PO Q6H PRN PRN Reason: Pain, moderate (4-7) Last Admin: 04/11/17 02:07 Dose: 650 mg Ceftriaxone Sodium (Rocephin 1 Gram Ivpb) 1 gm in 100 mls @ 100 mls/hr IVPB DAILY [facility] PRN Reason: Protocol Last Admin: 04/11/17 11:01 Dose: 100 mls/hr Ondansetron HCl (Zofran Inj) 4 mg IVP Q4H PRN PRN Reason: Nausea/Vomiting Oxycodone HCl (Oxycodone Immediate Release Tab) 15 mg PO Q6H PRN PRN Reason: Pain, moderate (4-7) Last Admin: 04/11/17 10:13 Dose: 15 mg Pantoprazole Sodium (Protonix Inj) 40 mg IVP DAILY [facility] Last Admin: 04/11/17 10:13 Dose: 40 mg Simethicone (Mylicon Chew Tab) 80 mg PO [facility] PRN PRN Reason: GI distress Last Admin: 04/11/17 04:37 Dose: 80 mg - Labs Labs: 04/11/17 07:00 04/11/17 07:00 - Head Exam Head Exam: ATRAUMATIC, NORMAL INSPECTION, NORMOCEPHALIC - Eye Exam Eye Exam: EOMI, PERRL - ENT Exam ENT Exam: Mucous Membranes Moist, Normal Exam - Neck Exam Neck Exam: Full ROM, Normal Inspection - Respiratory Exam Respiratory Exam: Clear to Ausculation Bilateral, NORMAL BREATHING PATTERN - Cardiovascular Exam Cardiovascular Exam: REGULAR RHYTHM, +S1, +S2 - GI/Abdominal Exam GI & Abdominal Exam: Tenderness (right lower quadrant surrounding draining fistula site ), Normal Bowel Sounds - Extremities Exam Extremities Exam: Full ROM, Normal Capillary Refill - Back Exam Additional comments: draining cutaneous fistula with yellow purulent drainage noted - Neurological Exam Neurological Exam: Alert, Awake, CN II-XII Intact, Oriented x3 Neuro motor strength exam: Left Upper Extremity: 5, Right Upper Extremity: 5, Left Lower Extremity: 5, Right Lower Extremity: 5 - Psychiatric Exam Psychiatric exam: Normal Affect, Normal Mood - Skin Skin Exam: Dry, Normal Color, Warm Assessment and Plan (1) Abdominal fistula Status: Acute (2) Vesicocutaneous fistula Status: Chronic - Assessment and Plan (Free Text) Assessment: Pt is a 21 year old male with PMH of Chron's disease and vesicocutaneous fistulas present on anterior abdomen and posterior lower back that presents with drainage of his fistulas and abdominal pain. Plan: 1. Chron's disease with draining fistula's - Uncontrolled Chron's disease - Wound culture growing Klebsiella, MSSA, E.coli - ID following, rec switching patient to ceftriaxone - Pain control with oxycontin - IR consulted - Monitor patient for elevation of WBC, fever, or increase in wound drainage - upon dc plan for patient to follow up with Dr. Delgado 2. History of Microcytic anemia - H/H stable at 9.1/29.6 3. GI/DVT ppx - Protonix - SCDs dispo: Continue to monitor patient for next 24-48 hours for worsening of condition with possible plan for dc if stable <José Ayoub - Last Filed: 04/11/17 15:44> Objective - Vital Signs/Intake and Output Vital Signs (last 24 hours): Temp Pulse Resp BP Pulse Ox 98.6 F 70 20 103/65 100 04/11/17 06:00 04/11/17 06:00 04/11/17 06:00 04/11/17 06:00 04/11/17 06:00 Intake and Output: 04/11/17 04/11/17 06:59 18:59 Intake Total 780 480 Output Total 1600 600 Balance -820 -120 - Medications Medications: Current Medications Acetaminophen (Tylenol 325mg Tab) 650 mg PO Q6H PRN PRN Reason: Pain, moderate (4-7) Last Admin: 04/11/17 02:07 Dose: 650 mg Ceftriaxone Sodium (Rocephin 1 Gram Ivpb) 1 gm in 100 mls @ 100 mls/hr IVPB DAILY [facility] PRN Reason: Protocol Last Admin: 04/11/17 11:01 Dose: 100 mls/hr Ondansetron HCl (Zofran Inj) 4 mg IVP Q4H PRN PRN Reason: Nausea/Vomiting Oxycodone HCl (Oxycodone Immediate Release Tab) 15 mg PO Q6H PRN PRN Reason: Pain, moderate (4-7) Last Admin: 04/11/17 10:13 Dose: 15 mg Pantoprazole Sodium (Protonix Inj) 40 mg IVP DAILY [facility] Last Admin: 04/11/17 10:13 Dose: 40 mg Simethicone (Mylicon Chew Tab) 80 mg PO [facility] PRN PRN Reason: GI distress Last Admin: 04/11/17 04:37 Dose: 80 mg - Labs Labs: 04/11/17 07:00 04/11/17 07:00 Attending/Attestation - Attestation I have personally seen and examined this patient.: Yes I have fully participated in the care of the patient.: Yes I have reviewed all pertinent clinical information, including history, physical exam and plan: Yes Notes (Text): 04/11/17 15:41 attending note; patient seen and examined with resident in ER. Patient is a 21 year old male with a past medical history of Crohn's disease, vesicular cutaneous fistula and chronic abdominal abscess who presented to the ED for evaluation of right lower abdominal pain and right lower back pain/ fistula sites. ON Iv Zosyn. Wound culture grew Escherichia coli, MSSA and Klebsiella. currently on IV Rocephin. Surgery evaluation appreciated. CT scan showed right iliopsoas abscess with gas. The [place] [facility] [place]. Patient also follows up with Dr. Patrick for remicaide injections. CT scan reviewed with Dr. Hasmukh Farmer. Advised to continue IV antibiotics. patient is not interested in percutaneous drainage. He will follow up with his primary surgeon . If clinically stable possible discharge within 24-48 hours.
[2017-04-11] MEDS ORDERED: DiphenhydrAMINE 50 mg/ml Inj IVP STA (23:01)
[2017-04-12] MEDS: oxyCODONE 15 mg Immediate Release Tab PO PRN ×3 (04:05→16:15)
[2017-04-12 06:20] LABS: BASO # 0.01 K/mm3 (0.0-2.0); BASO % 0.1 % (0.0-3.0); EOS % 0.3 % (1.5-5.0); GRAN # 9.01 (1.4-6.5); GRAN % 78.2 % (50.0-68.0); HEMOGLOBIN 9.6 g/dL (14.0-18.0); LYMPH # 0.9 (1.2-3.4); LYMPH % 8.1 % (22.0-35.0); MEAN CELL VOLUME 70.4 fl (80.0-105.0); MEAN CORPUSCULAR HGB CONC 31.3 g/dl (31.0-37.0); MONO # 1.5 (0.1-0.6); MONO % 13.3 % (1.0-6.0); RBC 4.36 10^6/uL (3.5-6.1); RED CELL DISTRIBUTION WIDTH 17.9 % (11.5-14.5); WHITE BLOOD COUNT 11.5 10^3/ul (4.5-11.0)
[2017-04-12 06:36] LABS: PLATELET COUNT 717 10^3/uL (120.0-450.0)
[2017-04-12 06:48] LABS: ALB/GLOB RATIO 0.9 (1.1-1.8); ALBUMIN 3.6 g/dL (3.0-4.8); ALT/SGPT 17 U/L (7-56); AST/SGOT 15 U/L (15-59); BLOOD UREA NITROGEN 3 mg/dL (7-21); CALCIUM 9.1 mg/dL (8.4-10.5); GFR AFRICAN-AMERICAN > 60; GFR NON-AFRICAN AMERICAN > 60
--- NOTE | 2017-04-12 07:24 | CP.PCM.PN ---
<Ondina Parham - Last Filed: 04/12/17 10:30> Subjective - Date & Time of Evaluation Date of Evaluation: 04/12/17 Time of Evaluation: 07:21 - Subjective Subjective: PGY-[address] Cleveland Mild fever 99.6 No f/c + BM, soft, formed stool Pain on abdomin and back controlled by oxycodone PRN Objective - Vital Signs/Intake and Output Vital Signs (last 24 hours): Temp Pulse Resp BP Pulse Ox 99.6 F 90 20 106/64 98 04/12/17 06:00 04/12/17 06:00 04/12/17 06:00 04/12/17 06:00 04/12/17 06:00 Intake and Output: 04/12/17 04/12/17 06:59 18:59 Intake Total 1140 Output Total 2700 Balance -1560 - Medications Medications: Current Medications Acetaminophen (Tylenol 325mg Tab) 650 mg PO Q6H PRN PRN Reason: Pain, moderate (4-7) Last Admin: 04/11/17 02:07 Dose: 650 mg Ceftriaxone Sodium (Rocephin 1 Gram Ivpb) 1 gm in 100 mls @ 100 mls/hr IVPB DAILY [facility] PRN Reason: Protocol Last Admin: 04/11/17 11:01 Dose: 100 mls/hr Ondansetron HCl (Zofran Inj) 4 mg IVP Q4H PRN PRN Reason: Nausea/Vomiting Oxycodone HCl (Oxycodone Immediate Release Tab) 15 mg PO Q6H PRN PRN Reason: Pain, moderate (4-7) Last Admin: 04/12/17 04:05 Dose: 15 mg Pantoprazole Sodium (Protonix Inj) 40 mg IVP DAILY [facility] Last Admin: 04/11/17 10:13 Dose: 40 mg Simethicone (Mylicon Chew Tab) 80 mg PO [facility] PRN PRN Reason: GI distress Last Admin: 04/11/17 04:37 Dose: 80 mg - Labs Labs: 04/12/17 05:15 04/11/17 07:00 - Constitutional Appears: No Acute Distress - Head Exam Head Exam: ATRAUMATIC, NORMAL INSPECTION, NORMOCEPHALIC - Eye Exam Eye Exam: EOMI, Normal appearance, PERRL. absent: Scleral icterus Pupil Exam: NORMAL ACCOMODATION - ENT Exam ENT Exam: Mucous Membranes Moist - Neck Exam Additional comments: supple - Respiratory Exam Respiratory Exam: Clear to Ausculation Bilateral. absent: Rales, Rhonchi, Wheezes - Cardiovascular Exam Cardiovascular Exam: REGULAR RHYTHM, +S1, +S2 - GI/Abdominal Exam GI & Abdominal Exam: Tenderness Additional comments: Pt refused abdominal exam. fistula at abdomen and back decreases in draining - Extremities Exam Extremities Exam: absent: Calf Tenderness, Pedal Edema - Neurological Exam Neurological Exam: Alert, Awake - Psychiatric Exam Psychiatric exam: Normal Affect, Normal Mood - Skin Skin Exam: Dry, Warm Assessment and Plan - Assessment and Plan (Free Text) Plan: 21 year old male with PMH uncontrolled Crohn's disease and med non-compliance, vesicular cutaneous fistula and chronic abdominal abscess admitted for sudden worsening of right lower abdominal pain and right lower back pain near his fistula sites. 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 Trend Temp/fever - Target ABX with ceftriaxone (day 2) - s/p zosyn (day 3) and Zyvox (day 2) - CT scan reviewed with Dr. Hasmukh Farmer. Advised to continue IV antibiotics. patient is not interested in percutaneous drainage. - Pt will follow up with his primary surgeon . - Per primary team, if clinically stable possible discharge within 24-48 hours. Culture Blood culture (04/09) - no growth x 3 day Abdominal wound culture (04/09) - Klebsiella Back wound culture (04/09) E-coli, Staph aureus Hx abdominal wound (02/19/17) - Klebsiella pneumonia (resistamnt to ampicillin, aztreonam, cefazolin, cefepime, ceftriaxone) (12/31/16) - Klebsiella pneumonia, citrobacter freundii, sundeep (12/04/16) - Vanco resistant E faecium, coagulase neg staph (11/27/16) - VRE and Sundeep albicans Imaging (04/09) CT abdomen and pelvis showing right sided psoas abscess and severe swelling of the iliacus muscle. Gas can be seen within psoas abscess on the current study extending up to the level of the right kidney. Gas collections noted to be new finding. No hydronephrosis Will s/d/r/w Dr. Cleveland <Ezekiel Cleveland S - Last Filed: 04/12/17 10:40> Objective - Vital Signs/Intake and Output Vital Signs (last 24 hours): Temp Pulse Resp BP Pulse Ox 99.6 F 90 20 106/64 98 04/12/17 09:00 04/12/17 09:00 04/12/17 09:00 04/12/17 09:00 04/12/17 09:00 Intake and Output: 04/12/17 04/12/17 06:59 18:59 Intake Total 1140 Output Total 2700 Balance -1560 - Medications Medications: Current Medications Acetaminophen (Tylenol 325mg Tab) 650 mg PO Q6H PRN PRN Reason: Pain, moderate (4-7) Last Admin: 04/11/17 02:07 Dose: 650 mg Ceftriaxone Sodium (Rocephin 1 Gram Ivpb) 1 gm in 100 mls @ 100 mls/hr IVPB DAILY [facility] PRN Reason: Protocol Last Admin: 04/11/17 11:01 Dose: 100 mls/hr Ondansetron HCl (Zofran Inj) 4 mg IVP Q4H PRN PRN Reason: Nausea/Vomiting Oxycodone HCl (Oxycodone Immediate Release Tab) 15 mg PO Q6H PRN PRN Reason: Pain, moderate (4-7) Last Admin: 04/12/17 10:04 Dose: 15 mg Pantoprazole Sodium (Protonix Inj) 40 mg IVP DAILY [facility] Last Admin: 04/12/17 10:07 Dose: Not Given Simethicone (Mylicon Chew Tab) 80 mg PO [facility] PRN PRN Reason: GI distress Last Admin: 04/11/17 04:37 Dose: 80 mg - Labs Labs: 04/12/17 05:15 04/12/17 05:15 Assessment and Plan - Assessment and Plan (Free Text) Plan: Infectious diseases Attending Physician Attestation Patient seen and examined, discussed with medical office specialist. I agree with the above findings. In addition, we will continue this patient on Ceftriaxone for MSSA and E. coli growing from Enterocutaneous fistulas. Patient has a psoas abscess that needs to be drained. Awaiting plan for drainage.
[2017-04-12] MEDS ORDERED: Morphine 2 mg/ml ISec IVP ONE (10:00)
[2017-04-12] MEDS: cefTRIAXone 1 gm 1 GM/100 ML BAG IVPB SCH (11:15)
--- NOTE | 2017-04-12 16:37 | CP.PCM.DIS ---
<Alonzo Hareophe - Last Filed: 04/12/17 16:21> Provider - Provider Date of Admission: 04/09/17 10:19 Attending physician: José Ayoub MD Consults: Infectious Disease: Dr. Ezekiel Cleveland Interventional Radiology: Dr. Hasmukh Farmer Time Spent in preparation of Discharge (in minutes): 30 Diagnosis - Discharge Diagnosis (1) Abdominal fistula Status: Acute (2) Vesicocutaneous fistula Status: Chronic Hospital Course - Lab Results Lab Results: Most Recent Lab Values WBC 11.5 10^3/ul (4.5-11.0) H 04/12/17 05:15 RBC 4.36 10^6/uL (3.5-6.1) 04/12/17 05:15 Hgb 9.6 g/dL (14.0-18.0) L 04/12/17 05:15 Hct 30.7 % (42.0-52.0) L 04/12/17 05:15 MCV 70.4 fl (80.0-105.0) L 04/12/17 05:15 MCH 22.0 pg (25.0-35.0) L 04/12/17 05:15 MCHC 31.3 g/dl (31.0-37.0) 04/12/17 05:15 RDW 17.9 % (11.5-14.5) H 04/12/17 05:15 Plt Count 717 10^3/uL (120.0-450.0) H* 04/12/17 05:15 MPV 8.0 fl (7.0-11.0) 04/12/17 05:15 Gran % 78.2 % (50.0-68.0) H 04/12/17 05:15 Lymph % (Auto) 8.1 % (22.0-35.0) L 04/12/17 05:15 [place] % (Auto) 13.3 % (1.0-6.0) H 04/12/17 05:15 Eos % (Auto) 0.3 % (1.5-5.0) L 04/12/17 05:15 Baso % (Auto) 0.1 % (0.0-3.0) 04/12/17 05:15 Gran # 9.01 (1.4-6.5) H 04/12/17 05:15 Lymph # 0.9 (1.2-3.4) L 04/12/17 05:15 [place] # 1.5 (0.1-0.6) H 04/12/17 05:15 Eos # 0.0 (0.0-0.7) 04/12/17 05:15 Baso # 0.01 K/mm3 (0.0-2.0) 04/12/17 05:15 pO2 28 mm/Hg (30-55) L 04/09/17 06:30 VBG pH 7.34 (7.32-7.43) 04/09/17 06:30 VBG pCO2 57.0 (40-60) 04/09/17 06:30 VBG HCO3 30.8 mmol/l (21-28) H 04/09/17 06:30 VBG Total CO2 32.5 mmol.L (22-28) H 04/09/17 06:30 VBG O2 Sat (Calc) 51.4 % (40-65) 04/09/17 06:30 VBG Base Excess 3.5 mmol/L (0.0-2.0) H 04/09/17 06:30 VBG Potassium 4.7 mmol/L (3.6-5.2) 04/09/17 06:30 Sodium 138.0 mmol/L (132-148) 04/09/17 06:30 Chloride 102.0 mmol/L (98-107) 04/09/17 06:30 Glucose 111 mg/dl (75-110) H 04/09/17 06:30 Lactate 1.8 mmol/L (0.7-2.1) 04/09/17 06:30 FiO2 21.0 % 04/09/17 06:30 Sodium 138 mmol/L (132-148) 04/12/17 05:15 Potassium 3.9 mmol/L (3.6-5.0) 04/12/17 05:15 Chloride 96 mmol/L (98-107) L 04/12/17 05:15 Carbon Dioxide 29 mmol/L (21-33) 04/12/17 05:15 Anion Gap 17 (10-20) 04/12/17 05:15 BUN 3 mg/dL (7-21) L 04/12/17 05:15 Creatinine 0.7 mg/dL (0.5-1.4) 04/12/17 05:15 Est GFR ( Amer) > 60 04/12/17 05:15 Est GFR (Non-Af Amer) > 60 04/12/17 05:15 Random Glucose 88 mg/dL (70-110) 04/12/17 05:15 Calcium 9.1 mg/dL (8.4-10.5) 04/12/17 05:15 Total Bilirubin 0.3 mg/dL (0.2-1.3) 04/12/17 05:15 AST 15 U/L (15-59) 04/12/17 05:15 ALT 17 U/L (7-56) 04/12/17 05:15 Alkaline Phosphatase 94 U/L (38-133) 04/12/17 05:15 Total Protein 7.4 g/dL (5.8-8.3) 04/12/17 05:15 Albumin 3.6 g/dL (3.0-4.8) 04/12/17 05:15 Globulin 3.8 gm/dL 04/12/17 05:15 Albumin/Globulin Ratio 0.9 (1.1-1.8) L 04/12/17 05:15 Venous Blood Potassium 4.7 mmol/L (3.6-5.2) 04/09/17 06:30 - Hospital Course Hospital Course: Pt is a 21 year old male with poorly controlled Chron's diseas and vesicocutaneous fistulas who was admitted after presenting [place] [facility] [place] for purulent drainage of his fistulas, general weakness, and lower back/abdominal pain. The patient was evaluated in the ED and found to be afebrile and without elevation of WBC. Patient was admitted to the [facility] for management of draining fistulas. ID was consulted and recommended zosyn and and flagyl. Blood cultures were taken and have continued to be negative. Wound cultures were taken and shown to grow Klebseilla. IR was consulted and case discussed with Dr. Farmer. IR recommended that the patient continue with antibiotic regiment and hold off on any intervention unless patient became febrile or found to have elevation in WBC. Patient remained afebrile throughout his course and found to have minimally elevated WBC. Plan was discussed with patient that involved him continuing his antibiotic regiment outpatient and to follow up with his surgeon Dr. Del[place] [facility] [place] management of his cutaneous fistulas as result of his poorly controlled Chron's disease. Patient understood plan and was agreeable with plan. - Date & Time of H&P Date of H&P: 04/09/17 Time of H&P: 19:27 Discharge Exam - Head Exam Head Exam: ATRAUMATIC, NORMAL INSPECTION, NORMOCEPHALIC - Eye Exam Eye Exam: EOMI, PERRL - ENT Exam ENT Exam: Mucous Membranes Dry, Normal Exam - Neck Exam Neck exam: Full Rom - Respiratory Exam Respiratory Exam: Clear to PA & Lateral, NORMAL BREATHING PATTERN, UNREMARKABLE - Cardiovascular Exam Cardiovascular Exam: REGULAR RHYTHM, +S1, +S2 - GI/Abdominal Exam GI & Abdominal Exam: Normal Bowel Sounds, Tenderness (RLQ near draining fistula) - Extremities Exam Extremities exam: full ROM, normal capillary refill, pedal pulses present - Back Exam Additional comments: lower back tenderness to palpation, presence of fistula draining purulent yellow fluid - Neurological Exam Neurological exam: Alert, CN II-XII Intact, Normal Gait, Oriented x3 - Psychiatric Exam Psychiatric exam: Normal Affect, Normal Mood - Skin Skin Exam: Dry, Normal Color, Warm Additional comments: cutaneousfistula present on anterior abdomen and lower back that show minimal purulent drainage, dressings applied Discharge Plan - Discharge Medications Prescriptions: Amoxicillin/Clavulanate [Augmentin 875 MG-125 MG] 1 tab PO BID #14 tab Linezolid [Zyvox] 600 mg PO BID #14 tab oxyCODONE [oxyCODONE Immediate Release Tab] 15 mg PO Q6 #12 tab - Follow Up Plan Condition: STABLE Disposition: HOME/ ROUTINE Instructions: Acute Abdominal Pain (DC), Acute Abdominal Pain (GEN) Additional Instructions: 1. Follow up with your primary doctor within 1 week of discharge. 2. Follow up with your surgeon, Dr. Delgado on your scheduled appointment Monday, April 19, 2017. 3. Follow up with your ethyl blender at [facility] 4. Fill the medications prescribed to you and take as directed. Augmentin 875 twice a day and Zyvox 600mg twice a day for a total of 7 days. 5. Return to the emergency room should your condition worsen. <José Ayoub - Last Filed: 04/12/17 17:27> Provider - Provider Date of Admission: 04/09/17 10:19 Attending physician: José Ayoub MD Hospital Course - Lab Results Lab Results: Most Recent Lab Values WBC 11.5 10^3/ul (4.5-11.0) H 04/12/17 05:15 RBC 4.36 10^6/uL (3.5-6.1) 04/12/17 05:15 Hgb 9.6 g/dL (14.0-18.0) L 04/12/17 05:15 Hct 30.7 % (42.0-52.0) L 04/12/17 05:15 MCV 70.4 fl (80.0-105.0) L 04/12/17 05:15 MCH 22.0 pg (25.0-35.0) L 04/12/17 05:15 MCHC 31.3 g/dl (31.0-37.0) 04/12/17 05:15 RDW 17.9 % (11.5-14.5) H 04/12/17 05:15 Plt Count 717 10^3/uL (120.0-450.0) H* 04/12/17 05:15 MPV 8.0 fl (7.0-11.0) 04/12/17 05:15 Gran % 78.2 % (50.0-68.0) H 04/12/17 05:15 Lymph % (Auto) 8.1 % (22.0-35.0) L 04/12/17 05:15 [place] % (Auto) 13.3 % (1.0-6.0) H 04/12/17 05:15 Eos % (Auto) 0.3 % (1.5-5.0) L 04/12/17 05:15 Baso % (Auto) 0.1 % (0.0-3.0) 04/12/17 05:15 Gran # 9.01 (1.4-6.5) H 04/12/17 05:15 Lymph # 0.9 (1.2-3.4) L 04/12/17 05:15 [place] # 1.5 (0.1-0.6) H 04/12/17 05:15 Eos # 0.0 (0.0-0.7) 04/12/17 05:15 Baso # 0.01 K/mm3 (0.0-2.0) 04/12/17 05:15 pO2 28 mm/Hg (30-55) L 04/09/17 06:30 VBG pH 7.34 (7.32-7.43) 04/09/17 06:30 VBG pCO2 57.0 (40-60) 04/09/17 06:30 VBG HCO3 30.8 mmol/l (21-28) H 04/09/17 06:30 VBG Total CO2 32.5 mmol.L (22-28) H 04/09/17 06:30 VBG O2 Sat (Calc) 51.4 % (40-65) 04/09/17 06:30 VBG Base Excess 3.5 mmol/L (0.0-2.0) H 04/09/17 06:30 VBG Potassium 4.7 mmol/L (3.6-5.2) 04/09/17 06:30 Sodium 138.0 mmol/L (132-148) 04/09/17 06:30 Chloride 102.0 mmol/L (98-107) 04/09/17 06:30 Glucose 111 mg/dl (75-110) H 04/09/17 06:30 Lactate 1.8 mmol/L (0.7-2.1) 04/09/17 06:30 FiO2 21.0 % 04/09/17 06:30 Sodium 138 mmol/L (132-148) 04/12/17 05:15 Potassium 3.9 mmol/L (3.6-5.0) 04/12/17 05:15 Chloride 96 mmol/L (98-107) L 04/12/17 05:15 Carbon Dioxide 29 mmol/L (21-33) 04/12/17 05:15 Anion Gap 17 (10-20) 04/12/17 05:15 BUN 3 mg/dL (7-21) L 04/12/17 05:15 Creatinine 0.7 mg/dL (0.5-1.4) 04/12/17 05:15 Est GFR ( Amer) > 60 04/12/17 05:15 Est GFR (Non-Af Amer) > 60 04/12/17 05:15 Random Glucose 88 mg/dL (70-110) 04/12/17 05:15 Calcium 9.1 mg/dL (8.4-10.5) 04/12/17 05:15 Total Bilirubin 0.3 mg/dL (0.2-1.3) 04/12/17 05:15 AST 15 U/L (15-59) 04/12/17 05:15 ALT 17 U/L (7-56) 04/12/17 05:15 Alkaline Phosphatase 94 U/L (38-133) 04/12/17 05:15 Total Protein 7.4 g/dL (5.8-8.3) 04/12/17 05:15 Albumin 3.6 g/dL (3.0-4.8) 04/12/17 05:15 Globulin 3.8 gm/dL 04/12/17 05:15 Albumin/Globulin Ratio 0.9 (1.1-1.8) L 04/12/17 05:15 Venous Blood Potassium 4.7 mmol/L (3.6-5.2) 04/09/17 06:30 Attending/Attestation - Attestation I have personally seen and examined this patient.: Yes I have fully participated in the care of the patient.: Yes I have reviewed all pertinent clinical information, including history, physical exam and plan: Yes Notes (Text): 04/12/17 17:21 attending note; patient seen and examined with resident. Patient is a 21 year old male with a past medical history of Crohn's disease, vesicular cutaneous fistula and chronic abdominal abscess admitted with right lower abdominal pain and right lower back pain/ fistula sites. Wound culture grew Escherichia coli, MSSA and Klebsiella. Treated with IV Rocephin. Surgery evaluation appreciated. CT scan showed right iliopsoas abscess with gas. The patient had recent surgical procedure [place] [facility] [place]. Patient also follows up with Dr. Patrick for remicaide injections. patient is not interested in percutaneous drainage. He will follow up with his primary surgeon . will be discharged home with by mouth Zyvox and augmentin. The patient will follow-up with next monday. diagnosis; Crohn's disease Multiple fistula Multiple surgical drainage Noncompliance with follow-up Opiate dependency 04/12/17 17:24
[2017-04-12 16:47] VITALS: BP 110/60; PULSE 82; TEMP 98.8; O2SAT 99
== END 2017-04-12 17:17 | disposition home or self-care (01) | DRG 552 ==
LOC: ED 04:44 → ERH 10:19 → 3RSO 11:20
PROVIDERS: ADMIT Internal Medicine; ATTEND Internal Medicine
DX: K63.2 Fistula of intestine (principal); N32.2 Vesical fistula, not elsewhere classified; K68.12 Psoas muscle abscess; L02.211 Cutaneous abscess of abdominal wall; K50.90 Crohn's disease, unspecified, without complications; F11.20 Opioid dependence, uncomplicated; B96.1 Klebsiella pneumoniae [K. pneumoniae] as the cause of diseases classified elsewhere; D64.9 Anemia, unspecified; B96.20 Unspecified Escherichia coli [E. coli] as the cause of diseases classified elsewhere; B95.61 Methicillin susceptible Staphylococcus aureus infection as the cause of diseases classified elsewhere; Z91.19 Patient's noncompliance with other medical treatment and regimen

== ENCOUNTER 2017-04-25 09:51 | Emergency (ER) | payer MEDICAID ==
[2017-04-25 09:51] VITALS: BMI 17.4
[2017-04-25 09:59] VITALS: BP 120/73; PULSE 71; RESP 16; TEMP 98.4; O2SAT 100
--- NOTE | 2017-04-25 10:04 | ED PDOC ---
Arrival/HPI - General Chief Complaint: Abdominal Pain Time Seen by Provider: 04/25/17 10:03 Historian: Patient - History of Present Illness Narrative History of Present Illness (Text): 04/25/17 10:04 21 y/o male, pmh including chronic crohn's disease/abdominal abscess with fistula, allergic to toradol, c/o chronic abdominal pain. Pt. stated that he has chronic abdominal pain from the crohn's disease which he has medication, started to have abdominal pain for the past 2-3 days which is his usual crohn's disease flared up. Pt. stated that he feels fine, no nausea or vomiting, doesn' t want any labs or radiology tests to be performed, only wants the pain medication as oral and he would like to leave the ER. Pt. has no homicidal or suicidal ideation, no auditory or visual hallucinations, no chest pain or shortness of breath, no palpitation, no night sweat, no other medical or psychological complaints. Past Medical History - Provider Review Nursing Documentation Reviewed: Yes - Infectious Disease Hx of Infectious Diseases: None - Tetanus Immunization Tetanus Immunization: Unknown - Reproductive Currently : No - Cardiac Hx Cardiac Disorders: No - Pulmonary Hx Respiratory Disorders: Yes Hx Pneumonia: Yes - Neurological Hx Neurological Disorder: No Hx Transient Ischemic Attacks (TIA): No - HEENT Hx HEENT Disorder: No - Renal Hx Renal Disorder: No - Endocrine/Metabolic Hx Endocrine Disorders: No - Hematological/Oncological Hx Blood Disorders: Yes Hx Anemia: Yes - Integumentary Hx Dermatological Disorder: Yes (RIGHT LOWER BACK FISTULA.DID I&D JANUARY 31 [facility],) Other/Comment: 02-16-17 3 RIGHT ABDOMINAL WALL ABSCESS. WITH LIGHT GREEN DRAINAGE.MEDIUM AMT. - Musculoskeletal/Rheumatological Hx Musculoskeletal Disorders: No Hx Falls: No - Gastrointestinal Hx Gastrointestinal Disorders: Yes Hx Crohn's Disease: Yes - Genitourinary/Gynecological Hx Genitourinary Disorders: Yes Hx Urinary Tract Infection: Yes - Psychiatric Hx Psychophysiologic Disorder: Yes Hx Anxiety: Yes Hx Substance Use: No - Surgical History Other/Comment: Colon resection - Anesthesia Hx Anesthesia: Yes Hx Anesthesia Reactions: No Hx Malignant Hyperthermia: No - Suicidal Assessment Feels Threatened In Home Enviroment: No Family/Social History - Physician Review Nursing Documentation Reviewed: Yes Family/Social History: Unknown Family HX Smoking Status: Never Smoked Hx Alcohol Use: No Hx Substance Use: No Allergies/Home Meds Allergies/Adverse Reactions: Allergies FISH Allergy (Verified 04/25/17 09:58) RASH ketorolac [From Toradol] Allergy (Verified 04/25/17 09:58) RASH shellfish derived Adverse Reaction (Verified 04/25/17 09:58) ANGIOEDEMA Home Medications: Home Meds Medication Instructions Recorded Confirmed inFLIXimab [Remicade] 1 vial INJ .EVERY6 WEEKS 04/25/17 04/25/17 Review of Systems - Review of Systems Constitutional: absent: Fatigue, Fevers Eyes: absent: Vision Changes ENT: absent: Hearing Changes Respiratory: absent: SOB, Cough Cardiovascular: absent: Chest Pain Gastrointestinal: Abdominal Pain, Diarrhea. absent: Constipation, Nausea, Vomiting Musculoskeletal: absent: Arthralgias, Back Pain Skin: absent: Rash, Pruritis, Skin Lesions, Other Neurological: absent: Dizziness, Focal Weakness, Gait Changes, Speech Changes, Facial Droop, Seizure Physical Exam Vital Signs Reviewed: Yes Vital Signs Temp Pulse Resp BP Pulse Ox 04/25/17 09:58 98.4 F 71 16 120/73 100 Temperature: Afebrile Blood Pressure: Normal Pulse: Regular Respiratory Rate: Normal Appearance: Positive for: Well-Appearing, Non-Toxic, Comfortable Pain Distress: Moderate Mental Status: Positive for: Alert and Oriented X 3 - Systems Exam Head: Present: Atraumatic, Normocephalic Pupils: Present: PERRL Extroacular Muscles: Present: EOMI Conjunctiva: Present: Normal Mouth: Present: Moist Mucous Membranes Neck: Present: Normal Range of Motion Respiratory/Chest: Present: Clear to Auscultation, Good Air Exchange. No: Respiratory Distress, Accessory Muscle Use Cardiovascular: Present: Regular Rate and Rhythm, Normal S1, S2. No: Murmurs Abdomen: Present: Tenderness (generalized abdominal tenderness), Normal Bowel Sounds, Scars. No: Distention, Peritoneal Signs, Rebound, Guarding, Hernias, Feeding Tubes Back: Present: Normal Inspection. No: CVA Tenderness, Midline Tenderness Upper Extremity: Present: Normal Inspection. No: Cyanosis, Edema Lower Extremity: Present: Normal Inspection. No: Edema Neurological: Present: GCS=15, Speech Normal, Motor Func Grossly Intact, Gait Normal, Memory Normal Skin: Present: Warm, Dry, Normal Color. No: Rashes Psychiatric: Present: Alert, Oriented x 3, Normal Insight, Normal Concentration Medical Decision Making ED Course and Treatment: 04/25/17 10:18 -Pt. request 2 percocets, will order 2 percocets for analagesic control. However, I still recommend labs and radiology studies along with IV medications but he is refusing, risks and benefits explained. Pt. will like to sign against medical advice after pain is controlled. -NEUROSURGICAL NURSE Rosalia is awared of that we offered standard care of the patient for the patient, and the patient is refusing. 04/25/17 11:20 -Pt. is requesting more pain med and be discharged, dilaudid 1mg IM ordered, pt. is taking taxicab home. Pt. is drinking juice. -Pt. still refused labs/radiology studies, request to sign out AMA. AMA ER The patient refuses to stay in the Emergency Room (ER) to continue the care and wishes to leave the emergency department against my medical advice. Patient was told that staying in the ER is necessary and a full explanation of the reasons why was given, and understood by the patient with alert and oriented x4. The risk of leaving were explained in laymans term and including but not limited to intra-abdominal disease or infections, ischemic GI tracts, organ failure, sepsis, cancer, abscess, fistulas, renal or gall stone, cholecystitis, cholangitis, colitis, peritonitis, psychiatric disease , pain, worsening of condition, permanent disability and from an undiagnosed or untreated condition. The patient accepts these risks, and is in my judgment is competent and capable of understanding the clinical situation and explanation of the risk of leaving. Patient was given the opportunity to ask questions and change mind. The patient was instructed regarding the best care for the present symptoms, and to follow up as soon as possible with the primary care doctor including specialist or return to the emergency department at an y time for continuing care. YOU SIGN OUT AGAINST AMA. YOU ARE ADVISED TO STAY IN THE ER FOR LABS AND RADIOLOGY STUDIES INCLUDING IV MEDICATION BUT YOU REFUSED. PLEASE FOLLOW UP WITH YOUR OWN PMD AND GI SOON POSSIBLE. RETURN TO THE ER FOR ANY NEW OR WORSENING SIGNS OR SYMPTOMS. - Medication Orders Current Medication Orders: Discontinued Medications Hydromorphone HCl (Dilaudid) 1 mg IM STAT STA Stop: 04/25/17 11:20 Last Admin: 04/25/17 11:29 Dose: 1 mg Oxycodone/Acetaminophen (Percocet 5/325 Mg Tab) 2 tab PO STAT STA Stop: 04/25/17 10:12 Last Admin: 04/25/17 10:30 Dose: 2 tab - PA / SALES RELATIONSHIP MANAGER / Resident Statement / has reviewed & agrees with the documentation as recorded. Disposition/Present on Arrival - Present on Arrival Any Indicators Present on Arrival: No History of DVT/PE: No History of Uncontrolled Diabetes: No Urinary Catheter: No History of Decub. Ulcer: No History Surgical Site Infection Following: None - Disposition Have Diagnosis and Disposition been Completed?: Yes Diagnosis: Abdominal pain, Noncompliance by refusing service, Non compliance with medical treatment Disposition: AGAINST MEDICAL ADVICE Disposition Time: 10:19 Patient Plan: Discharge Condition: STABLE Additional Instructions: YOU SIGN OUT AGAINST AMA. YOU ARE ADVISED TO STAY IN THE ER FOR LABS AND RADIOLOGY STUDIES INCLUDING IV MEDICATION BUT YOU REFUSED. PLEASE FOLLOW UP WITH YOUR OWN PMD AND GI SOON POSSIBLE. RETURN TO THE ER FOR ANY NEW OR WORSENING SIGNS OR SYMPTOMS. Referrals: PCP,NO [Primary Care Provider] - Follow up with primary Sunny Griffin MD [Staff Provider] - Follow up with primary Forms: [employer] ([place]), WORK NOTE
[2017-04-25] MEDS ORDERED: Oxycodone/Acetaminophen 5/325 mg Tab PO STA (10:11)
[2017-04-25] MEDS ORDERED: HYDROmorphone 1 mg/ml ISec IM STA (11:19)
== END 2017-04-25 11:32 | disposition left against medical advice (07) ==
LOC: ED 09:51
DX: R10.9 Unspecified abdominal pain (principal); Z91.19 Patient's noncompliance with other medical treatment and regimen
CPT/HCPCS: 96372; 99284; J1170

== ENCOUNTER 2017-05-12 09:55 | Emergency (ER) | payer MEDICAID ==
--- NOTE | 2017-05-12 10:04 | ED PDOC ---
Arrival/HPI - General Time Seen by Provider: 05/12/17 10:00 - History of Present Illness Narrative History of Present Illness (Text): 21yo male presents with abdominal discomfort. States he feels his chronic abdominal pain. Reports that he has ulcerations from Crohn's on his abd. wall which have significantly improved drainage. Pt denies n/v, denies f/v, denies any symptoms. No other complaints. Past Medical History - Provider Review Nursing Documentation Reviewed: Yes - Infectious Disease Hx of Infectious Diseases: None - Tetanus Immunization Tetanus Immunization: Unknown - Reproductive Currently : No - Cardiac Hx Cardiac Disorders: No - Pulmonary Hx Respiratory Disorders: Yes Hx Pneumonia: Yes - Neurological Hx Neurological Disorder: No Hx Transient Ischemic Attacks (TIA): No - HEENT Hx HEENT Disorder: No - Renal Hx Renal Disorder: No - Endocrine/Metabolic Hx Endocrine Disorders: No - Hematological/Oncological Hx Blood Disorders: Yes Hx Anemia: Yes - Integumentary Hx Dermatological Disorder: Yes (RIGHT LOWER BACK FISTULA.DID I&D JANUARY 31 [facility],) Other/Comment: 02-16-17 3 RIGHT ABDOMINAL WALL ABSCESS. WITH LIGHT GREEN DRAINAGE.MEDIUM AMT. - Musculoskeletal/Rheumatological Hx Musculoskeletal Disorders: No Hx Falls: No - Gastrointestinal Hx Gastrointestinal Disorders: Yes Hx Crohn's Disease: Yes - Genitourinary/Gynecological Hx Genitourinary Disorders: Yes Hx Urinary Tract Infection: Yes - Psychiatric Hx Psychophysiologic Disorder: Yes Hx Anxiety: Yes Hx Substance Use: No - Surgical History Other/Comment: Colon resection - Anesthesia Hx Anesthesia: Yes Hx Anesthesia Reactions: No Hx Malignant Hyperthermia: No - Suicidal Assessment Feels Threatened In Home Enviroment: No Family/Social History Family/Social History: Unknown Family HX Smoking Status: Never Smoked Hx Alcohol Use: No Hx Substance Use: No Allergies/Home Meds Allergies/Adverse Reactions: Allergies FISH Allergy (Verified 04/25/17 09:58) RASH ketorolac [From Toradol] Allergy (Verified 04/25/17 09:58) RASH shellfish derived Adverse Reaction (Verified 04/25/17 09:58) ANGIOEDEMA Home Medications: Home Meds Medication Instructions Recorded Confirmed inFLIXimab [Remicade] 1 vial INJ .EVERY6 WEEKS 04/25/17 04/25/17 Physical Exam - Physical Exam Narrative Physical Exam (Text): - Review of Systems Constitutional: Normal. absent: Fatigue, Weight Change, Fevers Eyes: Normal ENT: denies sore throat, denies tristhmus Respiratory: Normal. absent: SOB, Cough, Sputum Cardiovascular: absent: Chest Pain, Palpitations, Syncope Gastrointestinal: Abdominal pain. absent: Diarrhea, Nausea, Vomiting Genitourinary: Normal. absent: Dysuria, Frequency, Hematuria Musculoskeletal: Normal. absent: Arthralgias, Back Pain, Neck Pain Skin: no rashes, no erythema Neurological: absent: Focal Weakness Endocrine: Normal Hemo/Lymphatic: Normal Psychiatric: No suicidal or homicidal ideations Physical exam Patient appears age appropriate in no distress, speaking full sentences without difficulty - Systems Exam Head: Present: Atraumatic, Normocephalic Pupils: Present: PERRL Extroacular Muscles: Present: EOMI Conjunctiva: Present: Normal Mouth: Present: Moist Mucous Membranes Neck: Present: Normal Range of Motion. No: MIDLINE TENDERNESS, Paraspinal Tenderness Respiratory/Chest: Present: Clear to Auscultation, Good Air Exchange. No: Respiratory Distress, Accessory Muscle Use, Tachypneic Cardiovascular: Present: Regular Rate and Rhythm, Normal S1, S2, Peripheal Pulses Present. No: Murmurs Abdomen: Present: Normal Bowel Sounds. Multiple healing ulcerations with no active drainage. pt well known to the department. wounds appear better than on his previous visits. No: Tenderness, Distention, Peritoneal Signs, Rebound, Guarding Back: Present: Normal Inspection. No: Midline Tenderness, Paraspinal Tenderness Upper Extremity: Present: Normal Inspection. No: Cyanosis, Edema Lower Extremity: Present: Normal Inspection. No: Edema Neurological: Present: GCS=15, Speech Normal, cranial nerves II through XII fully intact with no cerebellar abnormality, neurosensory fully intact. No focal neurological deficits. Skin: Present: Warm, Dry, Normal Color. No: Rashes Lymphatic: Present: OX3, NI, NC Psychiatric: Present: Alert, Oriented x 3, Normal Insight, Normal Concentration Vital Signs Reviewed: Yes Vital Signs Temp Pulse Resp BP Pulse Ox 05/12/17 10:05 98.0 F 86 18 145/64 100 Temperature: Afebrile Blood Pressure: Normal Pulse: Regular Respiratory Rate: Normal Appearance: Positive for: Well-Appearing Pain Distress: None Mental Status: Positive for: Alert and Oriented X 3 Medical Decision Making ED Course and Treatment: 09/08/17 10:04 Patient's previous records reviewed, patient was admitted on 04/09/17 for evaluation of vesicular cutaneous fistulas, chronic abdominal abscesses, and Crohn's disease. Patient was not treated with invasive intervention, he remained on antibiotics. pt repeatedly asking for dilaudid for pain I expressed my concern for opiate dependence and offered alternative therapies to opioids, and pain management referral. I also expressed to pt that I would like to do a workup during this visit, which includes labs and imaging. Pt refused. Informed by RN that pt eloped. Disposition/Present on Arrival - Present on Arrival Any Indicators Present on Arrival: No History of DVT/PE: No History of Uncontrolled Diabetes: No Urinary Catheter: No History Surgical Site Infection Following: None - Disposition Have Diagnosis and Disposition been Completed?: Yes Diagnosis: Abdominal pain Disposition: ELOPEMENT - ER ONLY Disposition Time: 10:30 Patient Plan: Discharge Condition: GUARDED
[2017-05-12 10:09] VITALS: BP 145/64; PULSE 86; RESP 18; TEMP 98; O2SAT 100; BMI 19.8
== END 2017-05-12 10:25 | disposition left against medical advice (07) ==
LOC: ED 09:55
DX: R10.9 Unspecified abdominal pain (principal)

== ENCOUNTER 2017-05-27 10:17 | Emergency (ER) | payer MEDICAID ==
[2017-05-27 10:17] VITALS: BMI 19.8
[2017-05-27 10:45] VITALS: BP 124/72; PULSE 89; RESP 18; TEMP 98.7; O2SAT 100
--- NOTE | 2017-05-27 10:58 | ED PDOC ---
Arrival/HPI - General Chief Complaint: Abdominal Pain Time Seen by Provider: 05/27/17 10:28 - History of Present Illness Narrative History of Present Illness (Text): 05/27/17 10:47 22yo male with hx of crohn's disease and mult. abd abscesses presents with abd pain. Pt states that he also felt weak yesterday and fell, hitting his head and R. leg. Pt denies f/c, denies n/v. States he found a surgeon and has an appt next week. Past Medical History - Provider Review Nursing Documentation Reviewed: Yes - Infectious Disease Hx of Infectious Diseases: None - Tetanus Immunization Tetanus Immunization: Unknown - Reproductive Currently : No - Cardiac Hx Cardiac Disorders: No - Pulmonary Hx Respiratory Disorders: Yes Hx Pneumonia: Yes - Neurological Hx Neurological Disorder: No Hx Transient Ischemic Attacks (TIA): No - HEENT Hx HEENT Disorder: No - Renal Hx Renal Disorder: No - Endocrine/Metabolic Hx Endocrine Disorders: No - Hematological/Oncological Hx Blood Disorders: Yes Hx Anemia: Yes - Integumentary Hx Dermatological Disorder: Yes (RIGHT LOWER BACK FISTULA.DID I&D JANUARY 31 [facility],) Other/Comment: 02-16-17 3 RIGHT ABDOMINAL WALL ABSCESS. WITH LIGHT GREEN DRAINAGE.MEDIUM AMT. - Musculoskeletal/Rheumatological Hx Musculoskeletal Disorders: No Hx Falls: No - Gastrointestinal Hx Gastrointestinal Disorders: Yes Hx Crohn's Disease: Yes - Genitourinary/Gynecological Hx Genitourinary Disorders: Yes Hx Urinary Tract Infection: Yes - Psychiatric Hx Psychophysiologic Disorder: Yes Hx Anxiety: Yes Hx Substance Use: No - Surgical History Other/Comment: Colon resection - Anesthesia Hx Anesthesia: Yes Hx Anesthesia Reactions: No Hx Malignant Hyperthermia: No - Suicidal Assessment Feels Threatened In Home Enviroment: No Family/Social History Family/Social History: Unknown Family HX Smoking Status: Never Smoked Hx Alcohol Use: No Hx Substance Use: No Allergies/Home Meds Allergies/Adverse Reactions: Allergies FISH Allergy (Verified 05/27/17 10:26) RASH ketorolac [From Toradol] Allergy (Verified 05/27/17 10:26) RASH shellfish derived Adverse Reaction (Verified 05/27/17 10:26) ANGIOEDEMA Home Medications: Home Meds Medication Instructions Recorded Confirmed inFLIXimab [Remicade] 1 vial INJ .EVERY4 WEEKS 04/25/17 05/27/17 Physical Exam - Physical Exam Narrative Physical Exam (Text): - Review of Systems Constitutional: Normal. absent: Fatigue, Weight Change, Fevers Eyes: Normal ENT: denies sore throat, denies tristhmus Respiratory: Normal. absent: SOB, Cough, Sputum Cardiovascular: absent: Chest Pain, Palpitations, Syncope Gastrointestinal: Abdominal pain. absent: Diarrhea, Nausea, Vomiting Genitourinary: Normal. absent: Dysuria, Frequency, Hematuria Musculoskeletal: Leg pain. absent: Back Pain, Neck Pain Skin: abscesses. no rashes, no erythema Neurological: absent: Focal Weakness Endocrine: Normal Hemo/Lymphatic: Normal Psychiatric: No suicidal or homicidal ideations Physical exam Patient appears age appropriate in no distress, speaking full sentences without difficulty Head with a superficial abrasion lateral to the L. eyebrow and a small hematoma. No nasal bone deformity or tenderness, no facial or jaw pain/ swelling. No neck midline tenderness, thoracic and lumbar spine with no midline tenderness. Pt moving b/l upper and lower extremities without difficulty, 5/5 strength, with full active and passive ROM. Distal neurovasc fully intact. Abd soft/nt/ng, no hematomas, no peritoneal signs. Neg. pelvic rock. - Systems Exam Pupils: Present: PERRL Extroacular Muscles: Present: EOMI Conjunctiva: Present: Normal Mouth: Present: Moist Mucous Membranes Neck: Present: Normal Range of Motion. No: MIDLINE TENDERNESS, Paraspinal Tenderness Respiratory/Chest: Present: Clear to Auscultation, Good Air Exchange. No: Respiratory Distress, Accessory Muscle Use, Tachypneic Cardiovascular: Present: Regular Rate and Rhythm, Normal S1, S2, Peripheal Pulses Present. No: Murmurs Abdomen: Present: Normal Bowel Sounds. Mult abscesses with purulent drainage. No: Distention, Peritoneal Signs, Rebound, Guarding Back: Present: Normal Inspection. No: Midline Tenderness, Paraspinal Tenderness Upper Extremity: Present: Normal Inspection. No: Cyanosis, Edema Lower Extremity: Present: Normal Inspection. No: Edema Neurological: Present: GCS=15, Speech Normal, cranial nerves II through XII fully intact with no cerebellar abnormality, neurosensory fully intact. No focal neurological deficits. Lymphatic: Present: OX3, NI, NC Psychiatric: Present: Alert, Oriented x 3, Normal Insight, Normal Concentration Vital Signs Reviewed: Yes Vital Signs Temp Pulse Resp BP Pulse Ox 05/27/17 10:17 98.7 F 89 18 124/72 100 Temperature: Afebrile Blood Pressure: Normal Pulse: Regular Respiratory Rate: Normal Appearance: Positive for: Well-Appearing Pain Distress: None Mental Status: Positive for: Alert and Oriented X 3 Medical Decision Making ED Course and Treatment: 05/27/17 10:58 pt after a fall , with abd pain and abscesses. Hx of crohns. I explained to pt that abd imaging, labs, pain meds, and iv abx are necessary to start his workup. pt states he needs opioid pain meds for his symptoms. I had a long dw patient about my concern for opioid dependance and offered alternative therapies. pt refused I again expressed my concern and need for workup and treatment in the ER I was informed that pt walked out of the ER Disposition/Present on Arrival - Present on Arrival Any Indicators Present on Arrival: No History of DVT/PE: No History of Uncontrolled Diabetes: No Urinary Catheter: No History of Decub. Ulcer: No History Surgical Site Infection Following: None - Disposition Have Diagnosis and Disposition been Completed?: Yes Diagnosis: Abdominal pain, Chronic abdominal pain Disposition: LEFT W/O TREATMENT - ER ONLY Disposition Time: 10:47 Patient Plan: Discharge Condition: GUARDED
== END 2017-05-27 10:58 | disposition left against medical advice (07) ==
LOC: ED 10:17
DX: R10.9 Unspecified abdominal pain (principal); G89.29 Other chronic pain

== ENCOUNTER 2017-08-30 16:20 | Emergency (ER) | payer MEDICAID ==
[2017-08-30 16:24] VITALS: BMI 17.1
[2017-08-30 16:41] VITALS: BP 104/54; PULSE 79; RESP 18; TEMP 98.3; O2SAT 99
[2017-08-30] MEDS ORDERED: Oxycodone/Acetaminophen 5/325 mg Tab PO STA (16:51)
--- NOTE | 2017-08-30 17:05 | ED PDOC ---
Arrival/HPI - General Chief Complaint: Abdominal Pain Time Seen by Provider: 08/30/17 16:29 Historian: Patient - History of Present Illness Narrative History of Present Illness (Text): 08/30/17 17:05 22 yo M w/ PMHx of crohn's disease, chronic abdominal pain, multiple abdominal abscess with fistula, presents requesting for a dose of pain medication for his chronic abdominal pain with diarrhea. States that he ran out of his oxycodone 15 mg (which is Rx by his pain management doctor) 3 days ago. Patient states that he did receive his infusion of remicade from his GI doctor yesterday, but was not given a Rx to control his pain. Patient states that he does not want any labs or radiology tests to be performed, as [place] [facility] [place] only wants the pain medication as oral and he would like to leave the ER afterwards and will f/u with his pmd or GI doctor in the AM. Patient has no fever, chills, recent travel, sick contacts, chest pain, shortness of breath, palpitation, urinary symptoms, and has no other medical or psychological complaints PMD [facility] Past Medical History - Provider Review Nursing Documentation Reviewed: Yes - Infectious Disease Hx of Infectious Diseases: None - Tetanus Immunization Tetanus Immunization: Unknown - Cardiac Hx Cardiac Disorders: No - Pulmonary Hx Respiratory Disorders: Yes Hx Pneumonia: Yes - Neurological Hx Neurological Disorder: No Hx Transient Ischemic Attacks (TIA): No - HEENT Hx HEENT Disorder: No - Renal Hx Renal Disorder: No - Endocrine/Metabolic Hx Endocrine Disorders: No - Hematological/Oncological Hx Blood Disorders: Yes Hx Anemia: Yes - Integumentary Hx Dermatological Disorder: Yes (RIGHT LOWER BACK FISTULA.DID I&D JANUARY [address] [facility],) Other/Comment: 02-16-17 3 RIGHT ABDOMINAL WALL ABSCESS. WITH LIGHT GREEN DRAINAGE.MEDIUM AMT. - Musculoskeletal/Rheumatological Hx Musculoskeletal Disorders: No Hx Falls: No - Gastrointestinal Hx Gastrointestinal Disorders: Yes Hx Crohn's Disease: Yes - Genitourinary/Gynecological Hx Genitourinary Disorders: Yes Hx Urinary Tract Infection: Yes - Psychiatric Hx Psychophysiologic Disorder: Yes Hx Anxiety: Yes Hx Substance Use: No - Surgical History Other/Comment: Colon resection - Anesthesia Hx Anesthesia: Yes Hx Anesthesia Reactions: No Hx Malignant Hyperthermia: No - Suicidal Assessment Feels Threatened In Home Enviroment: No Family/Social History - Physician Review Nursing Documentation Reviewed: Yes Family/Social History: Unknown Family HX Smoking Status: Never Smoked Hx Alcohol Use: No Hx Substance Use: No Allergies/Home Meds Allergies/Adverse Reactions: Allergies FISH Allergy (Verified 05/27/17 10:26) RASH ketorolac [From Toradol] Allergy (Verified 05/27/17 10:26) RASH shellfish derived Adverse Reaction (Verified 05/27/17 10:26) ANGIOEDEMA Home Medications: Home Meds Medication Instructions Recorded Confirmed inFLIXimab [Remicade] 1 vial INJ .EVERY4 WEEKS 04/25/17 08/30/17 Review of Systems - Review of Systems Constitutional: Fatigue. absent: Weight Change, Fevers ENT: absent: Sore Throat, Rhinorrhea, Epistaxis Respiratory: absent: SOB, Cough, Sputum Cardiovascular: absent: Chest Pain, Palpitations, Orthopnea Gastrointestinal: Abdominal Pain, Diarrhea, Nausea. absent: Stool Changes, Vomiting, Appetite Changes Genitourinary Male: absent: Dysuria, Frequency, Hematuria Musculoskeletal: absent: Arthralgias, Back Pain, Neck Pain Skin: absent: Rash, Pruritis, Skin Lesions Physical Exam - Physical Exam Narrative Physical Exam (Text): 08/30/17 17:03 GENERAL APPEARANCE: Patient is awake, alert, oriented x 3, in no acute distress. SKIN: Warm, dry; (-) cyanosis. EYES: (-) conjunctival pallor, (-) scleral icterus. ENMT: Mucous membranes moist. NECK: (-) tenderness, (-) stiffness, (-) lymphadenopathy. CHEST AND RESPIRATORY: (-) rales, (-) rhonchi, (-) wheezes; breath sounds equal bilaterally. HEART AND CARDIOVASCULAR: (-) irregularity; (-) murmur, (-) gallop. ABDOMEN AND GI: (+) 2 cm horizontal healing wound with yellow d/c to the RUQ, ( +) long vertical healed surgical scar to the mid abdomen, with yellow purulent d /c noted from the lower 1/3 of the wound below the umbilicus, (-) distention. Bowel sounds active; (+) R sided abdominal tenderness, (-) guarding, (-) rebound , (-) palpable masses, (-) CVA tenderness. EXTREMITIES: (-) deformity, (-) edema, (+) distal pulses. NEURO AND PSYCH: Mental status as above; (-) focal findings. Vital Signs Temp Pulse Resp BP Pulse Ox 08/30/17 16:40 98.3 F 79 18 104/54 L 99 Medical Decision Making ED Course and Treatment: 08/30/17 17:10 22 yo M w/ PMHx of crohn's disease, chronic abdominal pain, multiple abdominal abscess with fistula, presents requesting for a dose of pain medication for his chronic abdominal pain with diarrhea. Previous medica records reviewed : patient last seen in the ER ojn 05/27/17 and for similar complaints, was given pain medication and he eloped both times. Patient given 2 tabs of percocet PO. However, I still recommend labs and radiology studies, but he is still refusing, the risks and benefits were explained to the patient and he verbalize understanding of the conversation. On re-evaluation, patient states he has improvement of pain, however is requesting for another dose of pain medication, and he still is refusing any lab or radiology testing. Patient given dilaudid 1 mg IM. Patient will like to sign against medical advice after pain is controlled. Patient is ambulatory in the ER. Patient still refused labs/radiology studies, request to sign out AMA. The patient refuses to stay in the Emergency Room (ER) to continue the care and wishes to leave the emergency department against my medical advice. Patient was told that staying in the ER is necessary and a full explanation of the reasons why was given, and understood by the patient with alert and oriented x4. The risk of leaving were explained in layman's term and including but not limited to intra-abdominal disease or infections, ischemic GI tracts, organ failure, sepsis, cancer, abscess, fistulas, renal or gall stone, cholecystitis, cholangitis, colitis, peritonitis, psychiatric disease , pain, worsening of condition, permanent disability and from an undiagnosed or untreated condition. The patient accepts these risks, and is in my judgment is competent and capable of understanding the clinical situation and explanation of the risk of leaving. Patient was given the opportunity to ask questions and change mind. The patient was instructed regarding the best care for the present symptoms, and to follow up as soon as possible with the primary care doctor including specialist or return to the emergency department at an y time for continuing care. - Medication Orders Current Medication Orders: Discontinued Medications Oxycodone/Acetaminophen (Percocet 5/325 Mg Tab) 2 tab PO STAT STA Stop: 08/30/17 16:52 Last Admin: 08/30/17 17:07 Dose: 2 tab MAR Pain Assessment Document 08/30/17 17:07 RD (Rec: 08/30/17 17:07 RD [facility] [id number]) Pain Reassessment Is this a pain reassessment? No Sleep Is patient sleeping during reassessment? No Presence of Pain Presence of Pain Yes - PA / FIELD MARKETING SPECIALIST / Resident Statement MD/DO has reviewed & agrees with the documentation as recorded. Disposition/Present on Arrival - Present on Arrival Any Indicators Present on Arrival: No History of DVT/PE: No History of Uncontrolled Diabetes: No Urinary Catheter: No History of Decub. Ulcer: No History Surgical Site Infection Following: None - Disposition Have Diagnosis and Disposition been Completed?: Yes Diagnosis: Abdominal pain, Crohn disease Disposition: AGAINST MEDICAL ADVICE Disposition Time: 17:30 Patient Plan: Other (Pt wishes to leave AMA) Patient Problems: Current Active Problems Problem Status Onset Abdominal pain Acute Crohn disease Acute Condition: UNKNOWN Discharge Instructions (ExitCare): Abdominal Pain (ED), Against Medical Advice (ED) Print Language: BENGALI Additional Instructions: Thank you for letting us take care of you today. You were treated for abdominal pain, history of Crohn's. The emergency medical care you received today was directed at your acute symptoms. Return to the Emergency Department if your symptoms worsen, do not improve, if you have any other problems or if you change your mind. YOU SIGNED OUT AGAINST MEDICAL ADVICE. YOU ARE ADVISED TO STAY IN THE ER FOR LABS AND RADIOLOGY STUDIES INCLUDING IV MEDICATION BUT YOU REFUSED. PLEASE FOLLOW UP WITH YOUR OWN PMD AND GI SOON POSSIBLE. RETURN TO THE ER FOR ANY NEW OR WORSENING SIGNS OR SYMPTOMS. Our treatment cannot replace ongoing medical care by a primary care provider ( PCP) outside of the emergency department. Thank you for allowing the [facility] team to be part of your care today. Referrals: Chidi Palumbo [Medical Doctor] - Follow up with primary Forms: [employer] (Syriac), WORK NOTE
[2017-08-30] MEDS ORDERED: HYDROmorphone 1 mg/ml ISec IM STA (17:42)
== END 2017-08-30 17:50 | disposition left against medical advice (07) ==
LOC: ED 16:20
DX: K50.90 Crohn's disease, unspecified, without complications (principal); R10.9 Unspecified abdominal pain
CPT/HCPCS: 96372; 99284; J1170

== ENCOUNTER 2017-09-03 16:48 | Emergency (ER) | payer MEDICAID ==
[2017-09-03 16:48] VITALS: BMI 17.1
[2017-09-03 17:27] VITALS: TEMP 97.8
[2017-09-03] MEDS ORDERED: Oxycodone/Acetaminophen 5/325 mg Tab PO STA (17:41)
--- NOTE | 2017-09-03 17:52 | ED PDOC ---
Arrival/HPI - General Chief Complaint: Abdominal Pain Time Seen by Provider: 09/03/17 17:27 Historian: Patient - History of Present Illness Narrative History of Present Illness (Text): 09/03/17 17:54 22 yo M w/ PMHx of crohn's disease, chronic abdominal pain, multiple abdominal abscess with fistula, returns to the ER for R sided abdominal pain after eating mac n cheese, and increase in d/c from one of his fistula's. He is here requesting for a dose of pain medication for his chronic abdominal pain. He admits that since his last visit here in the ER he could not see his GI or pain management doctor due to the holiday season. States that he ran out of his oxycodone 15 mg (which is Rx by his pain management doctor). Patient states he does not want any labs or CT to be done today. Patient has no fever, chills, recent travel, sick contacts, chest pain, shortness of breath, palpitation, urinary symptoms, and has no other medical or psychological complaints PMD [facility] Past Medical History - Provider Review Nursing Documentation Reviewed: Yes - Infectious Disease Hx of Infectious Diseases: None - Tetanus Immunization Tetanus Immunization: Unknown - Cardiac Hx Cardiac Disorders: No - Pulmonary Hx Respiratory Disorders: Yes Hx Pneumonia: Yes - Neurological Hx Neurological Disorder: No Hx Transient Ischemic Attacks (TIA): No - HEENT Hx HEENT Disorder: No - Renal Hx Renal Disorder: No - Endocrine/Metabolic Hx Endocrine Disorders: No - Hematological/Oncological Hx Blood Disorders: Yes Hx Anemia: Yes - Integumentary Hx Dermatological Disorder: Yes (RIGHT LOWER BACK FISTULA.DID I&D JANUARY 31 [facility],) Other/Comment: 02-16-17 3 RIGHT ABDOMINAL WALL ABSCESS. WITH LIGHT GREEN DRAINAGE.MEDIUM AMT. - Musculoskeletal/Rheumatological Hx Musculoskeletal Disorders: No Hx Falls: No - Gastrointestinal Hx Gastrointestinal Disorders: Yes Hx Crohn's Disease: Yes - Genitourinary/Gynecological Hx Genitourinary Disorders: Yes Hx Urinary Tract Infection: Yes - Psychiatric Hx Psychophysiologic Disorder: Yes Hx Anxiety: Yes Hx Substance Use: No - Surgical History Other/Comment: Colon resection - Anesthesia Hx Anesthesia: Yes Hx Anesthesia Reactions: No Hx Malignant Hyperthermia: No - Suicidal Assessment Feels Threatened In Home Enviroment: No Family/Social History - Physician Review Nursing Documentation Reviewed: Yes Family/Social History: Unknown Family HX Smoking Status: Never Smoked Hx Alcohol Use: No Hx Substance Use: No Allergies/Home Meds Allergies/Adverse Reactions: Allergies FISH Allergy (Verified 09/03/17 17:33) RASH ketorolac [From Toradol] Allergy (Verified 09/03/17 17:33) RASH shellfish derived Adverse Reaction (Verified 09/03/17 17:33) ANGIOEDEMA Home Medications: Home Meds Medication Instructions Recorded Confirmed No Known Home Med 09/03/17 09/03/17 Physical Exam - Physical Exam Narrative Physical Exam (Text): ROS : Constitutional: absent: Fatigue, Weight Change, Fevers ENT: absent: Sore Throat, Rhinorrhea, Epistaxis Respiratory: absent: SOB, Cough, Sputum Cardiovascular: absent: Chest Pain, Palpitations, Orthopnea Gastrointestinal: Chronic Abdominal Pain, Diarrhea. absent: Stool Changes, Nausea, Vomiting, Appetite Changes Genitourinary Male: absent: Dysuria, Frequency, Hematuria Musculoskeletal: absent: Arthralgias, Back Pain, Neck Pain Skin: absent: Rash, Pruritis, Skin Lesions PE : GENERAL APPEARANCE: Patient is awake, alert, oriented x 3, in no acute distress. SKIN: Warm, dry; (-) cyanosis. EYES: (-) conjunctival pallor, (-) scleral icterus. ENMT: Mucous membranes moist. NECK: (-) tenderness, (-) stiffness, (-) lymphadenopathy. CHEST AND RESPIRATORY: (-) rales, (-) rhonchi, (-) wheezes; breath sounds equal bilaterally. HEART AND CARDIOVASCULAR: (-) irregularity; (-) murmur, (-) gallop. ABDOMEN AND GI: (+) 2 cm horizontal healing wound with no d/c to the RUQ, (+) long vertical healed surgical scar to the mid abdomen, with yellow purulent d/c noted from the lower 1/3 of the wound below the umbilicus, (-) distention. Bowel sounds active; (+) mild R sided abdominal tenderness, (-) guarding, (-) rebound, (-) palpable masses, (-) CVA tenderness. EXTREMITIES: (-) deformity, (-) edema, (+) distal pulses. NEURO AND PSYCH: Mental status as above; (-) focal findings. Vital Signs Temp Pulse Resp BP Pulse Ox 09/03/17 19:00 80 18 129/80 99 09/03/17 17:26 97.8 F 78 19 131/89 100 Medical Decision Making ED Course and Treatment: 09/03/17 17:46 22 yo M w/ PMHx of crohn's disease, chronic abdominal pain, multiple abdominal abscess with fistula, presents c/o abdominal pain due to his crohn's, is requesting for a dose of pain medication, still is refuses to have any labs or CT to be done today. Previous medical records reviewed : patient last seen in the ER on 08/30/17 for similar complaints, was given pain medication and he left AMA. Patient given 2 tabs of percocet PO. I still recommend labs and radiology studies, but patient is still refusing, the risks and benefits were explained to the patient and he verbalize understanding. On re-evaluation, patient states he has improvement of pain, patient is requesting for another dose of pain medication, he is asking for dialudid IM, he still refuses any lab or radiology testing. Patient given dilaudid 1 mg IM, he was advised that he should not use the ER to receive repeated doses of pain medication and that he must f/u with his GI and pain management doctor to obtain pain medication and that the ER is not the appropriate place to receive narcotic pain medications for chronic pain. Patient states that he understands, he intends to see his GI and pain management doctor after the holiday. On second re-evaluation, patient states that he feels his pain is controlled and he will like to sign out against medical advice and leave the ER, he is still refusing labs/radiology studies. Patient refuses further care, evaluation or treatment in the ER. Patient informed of the reasons for the following and planned treatment, which patient understands, however still refuses. Patient informed of the risk and benefits of treatment. Informed that the risk could include worsening of current conditions, undiagnosed conditions, disability or even . Patient understands the following risk and the benefits of treatment. Patient has the capacity to make decisions and still refuses treatment by RN, PA and ER MD. Patient encouraged to return to the ER at any time and to follow up with pmd. - Medication Orders Current Medication Orders: Discontinued Medications Hydromorphone HCl (Dilaudid) 1 mg IM STAT STA Stop: 09/03/17 18:33 Last Admin: 09/03/17 18:55 Dose: 1 mg MAR Pain Assessment Document 09/03/17 18:55 EQ (Rec: 09/03/17 18:55 EQ [id number]) Pain Reassessment Is this a pain reassessment? No Sleep Is patient sleeping during reassessment? No Presence of Pain Presence of Pain Yes Pain Scale Used Pain Scale Used Numeric IM Administration Charges Document 09/03/17 18:55 EQ (Rec: 09/03/17 18:55 EQ [id number]) Charges for Administration # of IM Administrations 1 Oxycodone/Acetaminophen (Percocet 5/325 Mg Tab) 2 tab PO STAT STA Stop: 09/03/17 17:42 Last Admin: 09/03/17 18:20 Dose: 2 tab MAR Pain Assessment Document 09/03/17 18:20 EQ (Rec: 09/03/17 18:20 EQ [id number]) Pain Reassessment Is this a pain reassessment? No Sleep Is patient sleeping during reassessment? No Presence of Pain Presence of Pain Yes Pain Scale Used Pain Scale Used Numeric - PA / TECHNOLOGY ADMINISTRATOR / Resident Statement MD/DO has reviewed & agrees with the documentation as recorded. Disposition/Present on Arrival - Present on Arrival Any Indicators Present on Arrival: No History of DVT/PE: No History of Uncontrolled Diabetes: No Urinary Catheter: No History of Decub. Ulcer: No History Surgical Site Infection Following: None - Disposition Have Diagnosis and Disposition been Completed?: Yes Diagnosis: Abdominal pain, History of Crohn's disease Disposition: AGAINST MEDICAL ADVICE Disposition Time: 18:00 Patient Plan: Other (Pt wishes to leave AMA) Patient Problems: Current Active Problems Problem Status Onset Abdominal pain Acute History of Crohn's disease Acute Condition: UNKNOWN Discharge Instructions (ExitCare): Abdominal Pain (ED), Against Medical Advice (ED) Print Language: SWEDISH Additional Instructions: Thank you for letting us take care of you today. You were treated for abdominal pain, history of Crohn's. The emergency medical care you received today was directed at your acute symptoms. Return to the Emergency Department if your symptoms worsen, do not improve, if you have any other problems or if you change your mind. YOU SIGNED OUT AGAINST MEDICAL ADVICE. YOU ARE ADVISED TO STAY IN THE ER FOR LABS AND RADIOLOGY STUDIES INCLUDING IV MEDICATION BUT YOU REFUSED. PLEASE FOLLOW UP WITH YOUR OWN PMD AND GI SOON POSSIBLE. RETURN TO THE ER FOR ANY NEW OR WORSENING SIGNS OR SYMPTOMS. Our treatment cannot replace ongoing medical care by a primary care provider ( PCP) outside of the emergency department. Thank you for allowing the [facility] team to be part of your care today. Forms: [employer] (Danish)
[2017-09-03] MEDS ORDERED: HYDROmorphone 1 mg/ml ISec IM STA (18:32)
[2017-09-03 19:07] VITALS: BP 129/80; PULSE 80; RESP 18; O2SAT 99
== END 2017-09-03 19:00 | disposition left against medical advice (07) ==
LOC: ED 16:48
DX: R10.9 Unspecified abdominal pain (principal); K50.90 Crohn's disease, unspecified, without complications
CPT/HCPCS: 96372; 99283; J1170

== ENCOUNTER 2017-09-18 20:16 | Emergency (ER) | payer MEDICAID ==
[2017-09-18 20:39] VITALS: BMI 17.4
[2017-09-18 20:41] VITALS: RESP 18; TEMP 98.4; O2SAT 99
[2017-09-18] MEDS ORDERED: Oxycodone/Acetaminophen 5/325 mg Tab PO STA (22:36)
[2017-09-18] MEDS ORDERED: HYDROmorphone 1 mg/ml ISec IM STA (23:30)
[2017-09-18 23:57] VITALS: BP 132/70; PULSE 81
--- NOTE | 2017-09-19 01:47 | ED PDOC ---
Arrival/HPI - General Chief Complaint: GI Problem Time Seen by Provider: 09/18/17 20:53 Historian: Patient - History of Present Illness Narrative History of Present Illness (Text): 09/19/17 22:33 A 22 year old male, whose past medical history includes Crohn's disease s/p coloresection, multiple abdominal intestinocutaneous fistulae, and chronic abdominal pain syndrome, presents to the emergency department requesting for pain medication for chronic abodminal pain. Patient reports experiencing nausea , but denies any vomiting or any other complaints. Also, patient mentions he has follow-up with surgeon in 2 days. PMD: Dr. Brendan Ward Past Medical History - Provider Review Nursing Documentation Reviewed: Yes - Infectious Disease Hx of Infectious Diseases: None - Tetanus Immunization Tetanus Immunization: Unknown - Cardiac Hx Cardiac Disorders: No - Pulmonary Hx Respiratory Disorders: Yes Hx Pneumonia: Yes - Neurological Hx Neurological Disorder: No Hx Transient Ischemic Attacks (TIA): No - HEENT Hx HEENT Disorder: No - Renal Hx Renal Disorder: No - Endocrine/Metabolic Hx Endocrine Disorders: No - Hematological/Oncological Hx Blood Disorders: Yes Hx Anemia: Yes - Integumentary Hx Dermatological Disorder: Yes (RIGHT LOWER BACK FISTULA.DID I&D JANUARY 31 [facility],) Other/Comment: 02-16-17 3 RIGHT ABDOMINAL WALL ABSCESS. WITH LIGHT GREEN DRAINAGE.MEDIUM AMT. - Musculoskeletal/Rheumatological Hx Musculoskeletal Disorders: No Hx Falls: No - Gastrointestinal Hx Gastrointestinal Disorders: Yes Hx Crohn's Disease: Yes - Genitourinary/Gynecological Hx Genitourinary Disorders: Yes Hx Urinary Tract Infection: Yes - Psychiatric Hx Psychophysiologic Disorder: Yes Hx Anxiety: Yes Hx Substance Use: No - Surgical History Other/Comment: Colon resection - Anesthesia Hx Anesthesia: Yes Hx Anesthesia Reactions: No Hx Malignant Hyperthermia: No - Suicidal Assessment Feels Threatened In Home Enviroment: No Family/Social History - Physician Review Nursing Documentation Reviewed: Yes Family/Social History: No Known Family HX Smoking Status: Never Smoked Hx Alcohol Use: No Hx Substance Use: No Allergies/Home Meds Allergies/Adverse Reactions: Allergies FISH Allergy (Verified 09/10/17 16:59) RASH ketorolac [From Toradol] Allergy (Verified 09/10/17 16:59) RASH shellfish derived Adverse Reaction (Verified 09/10/17 16:59) ANGIOEDEMA Review of Systems - Physician Review All systems were reviewed & negative as marked: Yes - Review of Systems Constitutional: absent: Fevers, Night Sweats Gastrointestinal: Abdominal Pain (chronic; requests for pain medications), Nausea. absent: Vomiting Physical Exam Vital Signs Reviewed: Yes Vital Signs Temp Pulse Resp BP Pulse Ox 09/18/17 23:26 81 18 132/70 99 09/18/17 20:41 98.4 F 82 18 128/77 99 Temperature: Afebrile Blood Pressure: Normal Pulse: Regular Respiratory Rate: Normal Appearance: Positive for: Well-Appearing Pain Distress: None Mental Status: Positive for: Alert and Oriented X 3 - Systems Exam Respiratory/Chest: Present: Clear to Auscultation, Good Air Exchange. No: Respiratory Distress, Accessory Muscle Use Cardiovascular: Present: Regular Rate and Rhythm, Normal S1, S2. No: Murmurs Abdomen: Present: Tenderness (mild diffused abodminal tenderness), Other ( healing fistula above amicus) Neurological: Present: GCS=15, CN II-XII Intact, Speech Normal Skin: Present: Warm, Dry, Normal Color. No: Rashes Psychiatric: Present: Alert, Oriented x 3, Normal Insight, Normal Concentration Medical Decision Making ED Course and Treatment: 09/19/17 22:36 Impression: 22 year old male requesting for pain medications for chronic abdominal pain; also experiencing nausea. Physical exam shows mild diffused tenderness to abdomen, and healing fistula above amicus. Plan: -- Percocet -- Dilaudid -- Reassess and disposition Prior Visits: Notes and results from previous visits were reviewed. Patient was last seen in the emergency department on 09/10/2017 for complaint of running out of opiate prescription. Patient was d/c home. Progress Notes: - Medication Orders Current Medication Orders: Discontinued Medications Hydromorphone HCl (Dilaudid) 1 mg IM STAT STA Stop: 09/18/17 23:31 Last Admin: 09/18/17 23:38 Dose: 1 mg MAR Pain Assessment Document 09/18/17 23:38 RD (Rec: 09/18/17 23:39 RD [id number]) Pain Reassessment Is this a pain reassessment? No Sleep Is patient sleeping during reassessment? No Presence of Pain Presence of Pain Yes IM Administration Charges Document 09/18/17 23:38 RD (Rec: 09/18/17 23:39 RD [id number]) Injection Site MAR Injection Site Left Deltoid Charges for Administration # of IM Administrations 1 Oxycodone/Acetaminophen (Percocet 5/325 Mg Tab) 2 tab PO STAT STA Stop: 09/18/17 22:37 Last Admin: 09/18/17 22:44 Dose: 2 tab MAR Pain Assessment Document 09/18/17 22:44 RD (Rec: 09/18/17 22:44 RD [id number]) Pain Reassessment Is this a pain reassessment? No Sleep Is patient sleeping during reassessment? No Presence of Pain Presence of Pain Yes - Scribe Statement The provider has reviewed the documentation as recorded by the Aminahibsherri Suresh Provider Scribe Attestation: All medical record entries made by the Scribe were at my direction and personally dictated by me. I have reviewed the chart and agree that the record accurately reflects my personal performance of the history, physical exam, medical decision making, and the department course for this patient. I have also personally directed, reviewed, and agree with the discharge instructions and disposition. Disposition/Present on Arrival - Present on Arrival Any Indicators Present on Arrival: No History of DVT/PE: No History of Uncontrolled Diabetes: No Urinary Catheter: No History of Decub. Ulcer: No History Surgical Site Infection Following: None - Disposition Have Diagnosis and Disposition been Completed?: Yes Diagnosis: Chronic abdominal pain Disposition: HOME/ ROUTINE Disposition Time: 23:45 Condition: IMPROVED Discharge Instructions (ExitCare): Abdominal Pain (ED) Additional Instructions: Thank you for letting us take care of you today. The emergency medical care you received today was directed at your acute symptoms. If you were prescribed any medication, please fill it and take as directed. It may take several days for your symptoms to resolve. Return to the Emergency Department if your symptoms worsen, do not improve, or if you have any other problems. Please contact your doctor or call one of the physicians/clinics you have been referred to that are listed on the Patient Visit Information form that is included in your discharge packet. Bring any paperwork you were given at discharge with you along with any medications you are taking to your follow up visit. Our treatment cannot replace ongoing medical care by a primary care provider (PCP) outside of the emergency department. Thank you for allowing the [facility] team to be part of your care today. Follow up with your doctor in 2-3 days for re-evaluation and further management. Referrals: Brendan Ward MD [Primary Care Provider] - Follow up with primary Forms: [facility] (Welsh)
== END 2017-09-18 23:45 | disposition home or self-care (01) ==
LOC: ED 20:16
DX: R10.9 Unspecified abdominal pain (principal)
CPT/HCPCS: 96372; 99283; J1170

== ENCOUNTER 2017-09-19 13:48 | Emergency (ER) | payer MEDICAID ==
[2017-09-19 13:49] VITALS: BMI 17.4
[2017-09-19 15:00] VITALS: RESP 18; O2SAT 100
[2017-09-19 16:23] VITALS: BP 116/59; PULSE 72; TEMP 98
[2017-09-19] MEDS ORDERED: Lactated Ringer's 1,000 ML IV STA (16:23)
--- NOTE | 2017-09-19 16:50 | ED PDOC ---
Arrival/HPI <Miroslava Valentine - Last Filed: 09/19/17 16:50> - General Historian: Patient - History of Present Illness Time/Duration: 4-6 hours Symptom Onset: Gradual Symptom Course: Worsening Quality: Cramping Severity Level: 8 <Chad Montes De Oca - Last Filed: 09/19/17 17:31> - General Chief Complaint: Abdominal Pain Time Seen by Provider: 09/19/17 14:41 - History of Present Illness Narrative History of Present Illness (Text): 22 y/o male w/ pmhx of crohn's colitis, s/p multiple coloresective surgeries, multiple intestino-cutaneous fistulae , on remicade infusion, likley chronic opiate dependence, ecent ED visit for similar complaint presents c/o cold sweates/ cough productive of mucoid expectoration, and exacerbation of his chronic rt. sided familiar pain. Denying any change in character thereof , nor chantal fever/ no change in his chronic watery diarrhea/ denying ny hematochezia/ hemoptysis/hematemeisis nor melena. Appointment with his regular surgeon/ [facility] pain mgmt doc on September. He believes that he is the middle of a possible Crohn's disease exacerbation and just needs a dose of opiates, he will be seeing his regualr GI doc within this week. 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 09/19/17 17:10 09/19/17 17:14 (Chad Montes De Oca) Past Medical History - Infectious Disease Hx of Infectious Diseases: None - Tetanus Immunization Tetanus Immunization: Unknown - Cardiac Hx Cardiac Disorders: No - Pulmonary Hx Respiratory Disorders: Yes Hx Pneumonia: Yes - Neurological Hx Neurological Disorder: No Hx Transient Ischemic Attacks (TIA): No - HEENT Hx HEENT Disorder: No - Renal Hx Renal Disorder: No - Endocrine/Metabolic Hx Endocrine Disorders: No - Hematological/Oncological Hx Blood Disorders: Yes Hx Anemia: Yes - Integumentary Hx Dermatological Disorder: Yes (RIGHT LOWER BACK FISTULA.DID I&D JANUARY 31 [facility],) Other/Comment: 02-16-17 3 RIGHT ABDOMINAL WALL ABSCESS. WITH LIGHT GREEN DRAINAGE.MEDIUM AMT. - Musculoskeletal/Rheumatological Hx Musculoskeletal Disorders: No Hx Falls: No - Gastrointestinal Hx Gastrointestinal Disorders: Yes Hx Crohn's Disease: Yes - Genitourinary/Gynecological Hx Genitourinary Disorders: Yes Hx Urinary Tract Infection: Yes - Psychiatric Hx Psychophysiologic Disorder: Yes Hx Anxiety: Yes Hx Substance Use: No - Surgical History Other/Comment: Colon resection - Anesthesia Hx Anesthesia: Yes Hx Anesthesia Reactions: No Hx Malignant Hyperthermia: No - Suicidal Assessment Feels Threatened In Home Enviroment: No <Agnieszka Valentineanda - Last Filed: 09/19/17 16:50> - Provider Review Nursing Documentation Reviewed: Yes <TavonChda - Last Filed: 09/19/17 17:31> Family/Social History Smoking Status: Never Smoked Hx Alcohol Use: No Hx Substance Use: No <SergeMiroslava - Last Filed: 09/19/17 16:50> - Physician Review Nursing Documentation Reviewed: Yes Family/Social History: No Known Family HX <TavonChad - Last Filed: 09/19/17 17:31> Allergies/Home Meds <SergeMiroslava - Last Filed: 09/19/17 16:50> <TavonChad - Last Filed: 09/19/17 17:31> Allergies/Adverse Reactions: Allergies FISH Allergy (Verified 09/19/17 14:59) RASH ketorolac [From Toradol] Allergy (Verified 09/19/17 14:59) RASH shellfish derived Adverse Reaction (Verified 09/19/17 14:59) ANGIOEDEMA Review of Systems - Physician Review All systems were reviewed & negative as marked: Yes - Review of Systems Constitutional: Normal Eyes: Normal ENT: Normal Respiratory: Cough Cardiovascular: Normal Gastrointestinal: Abdominal Pain, Diarrhea Genitourinary Male: Normal Musculoskeletal: Normal Skin: Normal Neurological: Normal Endocrine: Normal Hemo/Lymphatic: Normal Psychiatric: Normal <TavonChad - Last Filed: 09/19/17 17:31> Physical Exam - Systems Exam Head: Present: Atraumatic, Normocephalic Pupils: Present: PERRL Extroacular Muscles: Present: EOMI Conjunctiva: Present: Normal Mouth: Present: Moist Mucous Membranes Neck: Present: Normal Range of Motion Respiratory/Chest: Present: Clear to Auscultation, Good Air Exchange. No: Respiratory Distress, Accessory Muscle Use Cardiovascular: Present: Regular Rate and Rhythm, Normal S1, S2. No: Murmurs Abdomen: Present: Normal Bowel Sounds, Other (soft, midline and oblong surgical scars, 3 sviualized intestinocutaneous fistulae , all improved since last visits excepting the midline fistulae. bs throughout). No: Tenderness, Distention, Peritoneal Signs Back: Present: Normal Inspection Upper Extremity: Present: Normal Inspection. No: Cyanosis, Edema Lower Extremity: Present: Normal Inspection. No: Edema Neurological: Present: GCS=15, CN II-XII Intact, Speech Normal, Motor Func Grossly Intact, Normal Sensory Function, Normal Cerebellar Funct, Norm Deep Tendon Reflexes, Gait Normal, Memory Normal Skin: Present: Warm, Dry, Normal Color. No: Rashes Psychiatric: Present: Alert, Oriented x 3, Normal Insight, Normal Concentration <Chad Montes De Oca - Last Filed: 09/19/17 17:31> Vital Signs Temp Pulse Resp BP Pulse Ox 09/19/17 16:16 98.0 F 72 18 116/59 L 100 09/19/17 14:56 97.9 F 88 18 109/67 100 Medical Decision Making <Miroslava Valentine - Last Filed: 09/19/17 16:50> <Chad Montes De Oca - Last Filed: 09/19/17 17:31> ED Course and Treatment: 22 yo male w/ pmhx of crohn's on remicade presents c/o exacerbation of his Crohn 's disease . Will be started on bentyl/ steroid taper/ pepcd /tylenol prn and advised to do stat follow up with his GI 09/19/17 17:19 (Chad Montes De Oca) Disposition/Present on Arrival - Present on Arrival History of DVT/PE: No History of Uncontrolled Diabetes: No Urinary Catheter: No History of Decub. Ulcer: No History Surgical Site Infection Following: None <Miroslava Valentine - Last Filed: 09/19/17 16:50> - Present on Arrival Any Indicators Present on Arrival: No - Disposition Have Diagnosis and Disposition been Completed?: Yes Disposition Time: 17:21 Patient Plan: Discharge <Chad Montes De Oca - Last Filed: 09/19/17 17:31> - Disposition Diagnosis: Abdominal fistula, Crohns disease Disposition: HOME/ ROUTINE Condition: GOOD Discharge Instructions (ExitCare): Crohn Disease (ED), Viral Syndrome (ED) Print Language: PERSIAN Additional Instructions: These medicines will help your pain although not with the agents you may hve hoped for, these medicines will treat the crohn's at its core. If symptoms worsen esepcially with fever then return urgently for further evaluation. YOU MUST FOLLOW UP WITH YOUR GI specialist. Prescriptions: Acetaminophen [Tylenol 325mg tab] 650 mg PO Q6 PRN #30 tab PRN Reason: Pain, Moderate (4-7) Ciprofloxacin HCl [Cipro] 500 mg PO BID #20 tablet Dicyclomine [Bentyl] 20 mg PO Q6 PRN #20 tab PRN Reason: Pain, Moderate (4-7) Famotidine [Pepcid] 20 mg PO BID PRN #20 tab PRN Reason: Dyspepsia Ipratropium [Atrovent HFA] 0.018 mg IH Q6 PRN 5 Days #1 bottle PRN Reason: Cough Methylprednisolone [Medrol Dose Pack (21 tabs)] 4 mg PO DAILY #21 mg Metronidazole [Flagyl] 500 mg PO TID #30 tablet Referrals: Amanda Stephens MD [Primary Care Provider] - Follow up with primary Forms: [email or web address] (Maori)
== END 2017-09-19 18:06 | disposition home or self-care (01) ==
LOC: ED 13:48
DX: K50.90 Crohn's disease, unspecified, without complications (principal); K63.2 Fistula of intestine

== ENCOUNTER 2017-09-23 10:41 | Emergency (ER) | payer MEDICAID ==
[2017-09-23 10:42] VITALS: BMI 17.4
[2017-09-23 11:08] VITALS: RESP 18; TEMP 98.3; O2SAT 100
[2017-09-23] MEDS ORDERED: Oxycodone/Acetaminophen 5/325 mg Tab PO STA (11:46)
[2017-09-23] MEDS ORDERED: HYDROmorphone 0.5 mg/0.5 ml ISec IM STA (11:47)
[2017-09-23 12:39] VITALS: BP 109/61; PULSE 79
--- NOTE | 2017-09-23 12:49 | ED PDOC ---
Arrival/HPI - General Chief Complaint: Abdominal Pain Time Seen by Provider: 09/23/17 11:26 - History of Present Illness Narrative History of Present Illness (Text): you were treated in the ED today for history of crohn's disease and having healing with your abdomen fistulas with remicade infusion and having abdomen flare-up which you states improves with 2 percocet by mouth and dilouded 1mg intramuscular but otherwise tolerating eating, passing gas, having your normal loose bowel movements without blood, and without any nausea/vomiting/headache/ dizziness/difficulty breathing/chest pain/numbness/tingling/loss of limb function/pain with urination. 09/23/17 12:45 09/23/17 12:55 Time/Duration: Other (1 day) Symptom Onset: Gradual Symptom Course: Unchanged Quality: Aching Severity Level: 5 Activities at Onset: Rest Context: Sitting Past Medical History - Provider Review Nursing Documentation Reviewed: Yes - Travel History Have you recently traveled outside [place] w/in the past 3 mons?: No - Infectious Disease Hx of Infectious Diseases: None - Tetanus Immunization Tetanus Immunization: Unknown - Cardiac Hx Cardiac Disorders: No - Pulmonary Hx Respiratory Disorders: Yes Hx Pneumonia: Yes - Neurological Hx Neurological Disorder: No Hx Transient Ischemic Attacks (TIA): No - HEENT Hx HEENT Disorder: No - Renal Hx Renal Disorder: No - Endocrine/Metabolic Hx Endocrine Disorders: No - Hematological/Oncological Hx Blood Disorders: Yes Hx Anemia: Yes - Integumentary Hx Dermatological Disorder: Yes (RIGHT LOWER BACK FISTULA.DID I&D JANUARY 31 [facility],) Other/Comment: 02-16-17 3 RIGHT ABDOMINAL WALL ABSCESS. WITH LIGHT GREEN DRAINAGE.MEDIUM AMT. - Musculoskeletal/Rheumatological Hx Musculoskeletal Disorders: No Hx Falls: No - Gastrointestinal Hx Gastrointestinal Disorders: Yes Hx Crohn's Disease: Yes - Genitourinary/Gynecological Hx Genitourinary Disorders: Yes Hx Urinary Tract Infection: Yes - Psychiatric Hx Psychophysiologic Disorder: Yes Hx Anxiety: Yes Hx Substance Use: No - Surgical History Other/Comment: Colon resection - Anesthesia Hx Anesthesia: Yes Hx Anesthesia Reactions: No Hx Malignant Hyperthermia: No - Suicidal Assessment Feels Threatened In Home Enviroment: No Family/Social History - Physician Review Nursing Documentation Reviewed: Yes Family/Social History: No Known Family HX Smoking Status: Never Smoked Hx Alcohol Use: No Hx Substance Use: No Allergies/Home Meds Allergies/Adverse Reactions: Allergies FISH Allergy (Verified 09/19/17 14:59) RASH ketorolac [From Toradol] Allergy (Verified 09/19/17 14:59) RASH shellfish derived Adverse Reaction (Verified 09/19/17 14:59) ANGIOEDEMA Review of Systems - Review of Systems Constitutional: Normal Eyes: Normal ENT: Normal Respiratory: Normal Cardiovascular: Normal Gastrointestinal: Abdominal Pain. absent: Normal, Stool Changes, Constipation, Diarrhea, Nausea, Vomiting, Appetite Changes, Hematochezia, Hematemesis, Anorexia, Food Intolerance, Other Genitourinary Male: Normal Musculoskeletal: Normal Skin: Normal Neurological: Normal Endocrine: Normal Hemo/Lymphatic: Normal Psychiatric: Normal Physical Exam Vital Signs Reviewed: Yes Vital Signs Temp Pulse Resp BP Pulse Ox 09/23/17 12:38 79 18 109/61 100 09/23/17 11:08 98.3 F 86 18 107/59 L 100 Temperature: Afebrile Blood Pressure: Normal Pulse: Regular Respiratory Rate: Normal Appearance: Positive for: Well-Appearing, Non-Toxic, Comfortable Pain Distress: None Mental Status: Positive for: Alert and Oriented X 3 - Systems Exam Head: Present: Atraumatic, Normocephalic Pupils: Present: PERRL Extroacular Muscles: Present: EOMI Conjunctiva: Present: Normal Ears: Present: Normal Mouth: Present: Moist Mucous Membranes Pharnyx: Present: Normal Nose (External): Present: Atraumatic Nose (Internal): Present: Normal Inspection Neck: Present: Normal Range of Motion Respiratory/Chest: Present: Clear to Auscultation, Good Air Exchange Cardiovascular: Present: Regular Rate and Rhythm Abdomen: Present: Other (healing wounds, no specific discomfort.) Back: Present: Normal Inspection Upper Extremity: Present: Normal Inspection Lower Extremity: Present: Normal Inspection Neurological: Present: GCS=15, CN II-XII Intact, Speech Normal, Motor Func Grossly Intact Skin: Present: Warm, Normal Color Psychiatric: Present: Alert, Oriented x 3, Normal Insight, Normal Concentration Medical Decision Making ED Course and Treatment: you were treated in the ED today for history of crohn's disease and having healing with your abdomen fistulas with remicade infusion and having abdomen flare-up which you states improves with 2 percocet by mouth and dilouded 1mg intramuscular but otherwise tolerating eating, passing gas, having your normal loose bowel movements without blood, and without any nausea/vomiting/headache/ dizziness/difficulty breathing/chest pain/numbness/tingling/loss of limb function/pain with urination. You were otherwise breathing easily, talking easily, good strength/sensation, walking easily, clear lungs, no specific abdomen tenderness with healing fistulas that were dry, no fever temp 98.3, stable heart rate 86, stable breathing rate 18, excellent oxygen level 100% room air, stable blood pressure 107/59, percocet 2 tabs and 1mg dilouded done in the ED with improvement, counselled to regarding the risk of opioid usage and thus discharged home with a stated ride from your mother. 1. Recommend follow-up primary care 2-3 days to review symptoms, referral to surgery and gastroenterology clinic. 2. If any worsening pain, fever, chills, nausea, vomiting, difficulty breathing, numbness, loss of limb function, pain with urination or any medical condition then return to the ED. 09/23/17 12:51 - Medication Orders Current Medication Orders: Discontinued Medications Hydromorphone HCl (Dilaudid) 1 mg IM STAT STA Stop: 09/23/17 11:48 Oxycodone/Acetaminophen (Percocet 5/325 Mg Tab) 2 tab PO STAT STA Stop: 09/23/17 11:47 Last Admin: 09/23/17 12:03 Dose: 2 tab [facility] Pain Assessment Document 09/23/17 12:03 EQ (Rec: 09/23/17 12:04 EQ [id number]) Pain Reassessment Is this a pain reassessment? No Sleep Is patient sleeping during reassessment? No Presence of Pain Presence of Pain Yes Disposition/Present on Arrival - Present on Arrival Any Indicators Present on Arrival: No History of DVT/PE: No History of Uncontrolled Diabetes: No Urinary Catheter: No History of Decub. Ulcer: No History Surgical Site Infection Following: None - Disposition Have Diagnosis and Disposition been Completed?: Yes Diagnosis: Pain in the abdomen Disposition: HOME/ ROUTINE Disposition Time: 12:52 Patient Plan: Discharge Condition: IMPROVED Additional Instructions: you were treated in the ED today for history of crohn's disease and having healing with your abdomen fistulas with remicade infusion and having abdomen flare-up which you states improves with 2 percocet by mouth and dilouded 1mg intramuscular but otherwise tolerating eating, passing gas, having your normal loose bowel movements without blood, and without any nausea/vomiting/headache/ dizziness/difficulty breathing/chest pain/numbness/tingling/loss of limb function/pain with urination. You were otherwise breathing easily, talking easily, good strength/sensation, walking easily, clear lungs, no specific abdomen tenderness with healing fistulas that were dry, no fever temp 98.3, stable heart rate 86, stable breathing rate 18, excellent oxygen level 100% room air, stable blood pressure 107/59, percocet 2 tabs and 1mg dilouded done in the ED with improvement, counselled to regarding the risk of opioid usage and thus discharged home with a stated ride from your mother. 1. Recommend follow-up primary care 2-3 days to review symptoms, referral to surgery and gastroenterology clinic. 2. If any worsening pain, fever, chills, nausea, vomiting, difficulty breathing, numbness, loss of limb function, pain with urination or any medical condition then return to the ED. Referrals: Amanda Stephens MD [Primary Care Provider] - Follow up with primary
== END 2017-09-23 13:10 | disposition home or self-care (01) ==
LOC: ED 10:41
DX: R10.9 Unspecified abdominal pain (principal)
CPT/HCPCS: 96372; 99283; J1170

== ENCOUNTER 2017-09-24 14:52 | Emergency (ER) | payer MEDICAID ==
[2017-09-24 14:52] VITALS: BMI 17.4
[2017-09-24 15:06] VITALS: BP 115/69; PULSE 88; O2SAT 100
[2017-09-24 15:08] VITALS: RESP 18; TEMP 98.2
--- NOTE | 2017-09-24 15:15 | ED PDOC ---
Arrival/HPI - General Chief Complaint: Lower Extremity Problem/Injury Time Seen by Provider: 09/24/17 15:10 - History of Present Illness Narrative History of Present Illness (Text): 22 y/o M c PMHx Crohn's disease p/w R ankle pain after a fall yesterday. He denies deformity, headstrike, LOC, nausea, vomiting, numbness, or weakness. Past Medical History - Infectious Disease Hx of Infectious Diseases: None - Tetanus Immunization Tetanus Immunization: Unknown - Cardiac Hx Cardiac Disorders: No - Pulmonary Hx Pneumonia: Yes - Neurological Hx Transient Ischemic Attacks (TIA): No - HEENT Hx HEENT Disorder: No - Renal Hx Renal Disorder: No - Endocrine/Metabolic Hx Endocrine Disorders: No - Hematological/Oncological Hx Anemia: Yes - Integumentary Hx Dermatological Disorder: Yes (RIGHT LOWER BACK FISTULA.DID I&D JANUARY 31 [facility],) Other/Comment: ABDOMINAL WALL ABSCESS. - Musculoskeletal/Rheumatological Hx Musculoskeletal Disorders: No Hx Falls: No - Gastrointestinal Hx Crohn's Disease: Yes - Genitourinary/Gynecological Hx Genitourinary Disorders: Yes Hx Urinary Tract Infection: Yes - Psychiatric Hx Anxiety: Yes Hx Substance Use: No - Surgical History Other/Comment: Colon resection - Anesthesia Hx Anesthesia: Yes Hx Anesthesia Reactions: No Hx Malignant Hyperthermia: No - Suicidal Assessment Feels Threatened In Home Enviroment: No Family/Social History Family/Social History: No Known Family HX Smoking Status: Never Smoked Hx Alcohol Use: No Hx Substance Use: No Allergies/Home Meds Allergies/Adverse Reactions: Allergies FISH Allergy (Verified 09/24/17 15:02) RASH ketorolac [From Toradol] Allergy (Verified 09/24/17 15:02) RASH shellfish derived Adverse Reaction (Verified 09/24/17 15:02) ANGIOEDEMA Review of Systems - Physician Review All systems were reviewed & negative as marked: Yes - Review of Systems Constitutional: absent: Fevers Cardiovascular: absent: Chest Pain Physical Exam - Physical Exam Narrative Physical Exam (Text): Gen: NAD Head: Atraumatic Eyes: PERRL Extremities: FROM pelvis, knee, and ankle and digits of R leg. No visible swelling. No tenderness at either malleolus, over midfoot, base of 5th digit. Neuro: Moves all extremities. Vital Signs Temp Pulse Resp BP Pulse Ox 09/24/17 15:08 98.2 F 88 18 115/69 100 09/24/17 15:02 98.6 F 88 16 115/69 100 Medical Decision Making ED Course and Treatment: Offered pain medication, patient states he typically gets Percocet for his pains and is not requesting a prescription. Counseled on risk of drug addiction. Patient did not want XR of ankle. Disposition/Present on Arrival - Present on Arrival Any Indicators Present on Arrival: No History of DVT/PE: No History of Uncontrolled Diabetes: No Urinary Catheter: No History of Decub. Ulcer: No History Surgical Site Infection Following: None - Disposition Have Diagnosis and Disposition been Completed?: Yes Diagnosis: Ankle pain Disposition: HOME/ ROUTINE Disposition Time: 15:19 Patient Plan: Discharge Condition: STABLE Discharge Instructions (ExitCare): Ankle Sprain (ED) Forms: [facility] (Faroese)
[2017-09-24] MEDS ORDERED: Oxycodone/Acetaminophen 5/325 mg Tab PO STA (15:16)
== END 2017-09-24 16:05 | disposition home or self-care (01) ==
LOC: ED 14:52
DX: M25.571 Pain in right ankle and joints of right foot (principal)

== ENCOUNTER 2017-09-28 12:45 | Emergency (ER) | payer MEDICAID ==
[2017-09-28 12:46] VITALS: BMI 17.4
[2017-09-28 13:22] VITALS: BP 114/66; PULSE 85; RESP 20; TEMP 98.2; O2SAT 100
[2017-09-28] MEDS ORDERED: Oxycodone/Acetaminophen 5/325 mg Tab PO STA (13:40)
--- NOTE | 2017-09-28 13:40 | ED PDOC ---
Arrival/HPI - General Chief Complaint: Abdominal Pain Time Seen by Provider: 09/28/17 13:34 Historian: Patient - History of Present Illness Narrative History of Present Illness (Text): 09/28/17 18:29 pt p/w acute on chronic lower abd pain due to pt's underlying crohns disease; pt states the abd pain started today and at most pain is 8-9/10; pt states in addition to pain, he is coughing/vomited x 1-2 episodes and occasionally food material/discharge is expressed through the mid abd wound region; pt states these symptoms usually occurs during his acute abd pain exacerbation due to his underlying Crohns; pt usually require a single dose of pain medication and for outpt (at home treatment), will need an anti-cough medication (pt prefers phenergan + codeine); pt states no fever/chills/sweats, no cp/sob/palpitations, no new abd pain, no urinary/bowel changes (diarrhea is non-bloody), pt denied fall/trauma/sick contact, no travel; pt denied rashes; pt denied other complaints; pt is here for further eval. Time/Duration: 24 hours Symptom Onset: Sudden Symptom Course: Worsening Quality: Aching, Cramping, Throbbing Severity Level: 8, Severe Activities at Onset: Rest Context: Home Past Medical History - Provider Review Nursing Documentation Reviewed: Yes - Travel History Have you recently traveled outside [place] w/in the past 3 mons?: No - Past History Past History: No Previous - Infectious Disease Hx of Infectious Diseases: None - Tetanus Immunization Tetanus Immunization: Unknown - Cardiac Hx Cardiac Disorders: No - Pulmonary Hx Pneumonia: Yes - Neurological Hx Transient Ischemic Attacks (TIA): No - HEENT Hx HEENT Disorder: No - Renal Hx Renal Disorder: No - Endocrine/Metabolic Hx Endocrine Disorders: No - Hematological/Oncological Hx Anemia: Yes - Integumentary Hx Dermatological Disorder: Yes (RIGHT LOWER BACK FISTULA.DID I&D JANUARY 31 [facility],) Other/Comment: ABDOMINAL WALL ABSCESS. - Musculoskeletal/Rheumatological Hx Musculoskeletal Disorders: No Hx Falls: No - Gastrointestinal Hx Crohn's Disease: Yes - Genitourinary/Gynecological Hx Genitourinary Disorders: Yes Hx Urinary Tract Infection: Yes - Psychiatric Hx Anxiety: Yes Hx Substance Use: No - Surgical History Other/Comment: Colon resection - Anesthesia Hx Anesthesia: Yes Hx Anesthesia Reactions: No Hx Malignant Hyperthermia: No - Suicidal Assessment Feels Threatened In Home Enviroment: No Family/Social History - Physician Review Nursing Documentation Reviewed: Yes Family/Social History: No Known Family HX Smoking Status: Never Smoked Hx Alcohol Use: No Hx Substance Use: No Allergies/Home Meds Allergies/Adverse Reactions: Allergies FISH Allergy (Verified 09/24/17 15:02) RASH ketorolac [From Toradol] Allergy (Verified 09/24/17 15:02) RASH shellfish derived Adverse Reaction (Verified 09/24/17 15:02) ANGIOEDEMA Review of Systems - Review of Systems Constitutional: Normal Eyes: Normal ENT: Normal Respiratory: Normal Cardiovascular: Normal Gastrointestinal: Abdominal Pain, Diarrhea, Nausea, Vomiting Genitourinary Male: Normal Musculoskeletal: Normal Skin: Normal Neurological: Normal Endocrine: Normal Hemo/Lymphatic: Normal Psychiatric: Normal Physical Exam Vital Signs Reviewed: Yes Vital Signs Temp Pulse Resp BP Pulse Ox 09/28/17 13:21 98.2 F 85 20 114/66 100 Temperature: Afebrile Blood Pressure: Normal Pulse: Regular Respiratory Rate: Normal Appearance: Positive for: Well-Appearing, Non-Toxic, Other (uncomfortable, mild distress due to pain, resting in bed, alert/awake, GCS = 15, oriented x 3, cooperative, follow commands with ease) Pain Distress: Mild Mental Status: Positive for: Alert and Oriented X 3 - Systems Exam Head: Present: Atraumatic, Normocephalic, Other (mild bi-temporal wasting is noted) Pupils: Present: PERRL Extroacular Muscles: Present: EOMI Conjunctiva: Present: Normal Ears: Present: Normal Mouth: Present: Moist Mucous Membranes, Normal Teeth Pharnyx: Present: Normal Nose (External): Present: Atraumatic Neck: Present: Normal Range of Motion, Trachea Midline. No: MIDLINE TENDERNESS Respiratory/Chest: Present: Clear to Auscultation, Good Air Exchange. No: Respiratory Distress Cardiovascular: Present: Regular Rate and Rhythm, Normal S1, S2 Abdomen: Present: Normal Bowel Sounds, Other (noted diffuse right mid abd tenderness, + post surg wounds are noted, well healed, noted mid abd wound with green/yellow material discharge, NON-tender, non-bloody (pt states chronic - possible fistula tract, non-foul odor material); no garg's sign, no mcburney' s point tenderness, no masses/rebound/guarding/rigidity). No: Tenderness, Distention Back: Present: Normal Inspection. No: CVA Tenderness, Midline Tenderness Upper Extremity: Present: Normal Inspection, Normal ROM, NORMAL PULSES, Neurovascularly Intact, Capillary Refill < 2s Lower Extremity: Present: Normal Inspection, NORMAL PULSES, Normal ROM, Neurovascularly Intact, Capillary Refill < 2 s Neurological: Present: GCS=15, CN II-XII Intact, Speech Normal Skin: Present: Warm, Normal Color, Other (cap refill < 1sec, no ulcerations, no petechiae, no rashes) Psychiatric: Present: Alert, Oriented x 3, Normal Insight Medical Decision Making ED Course and Treatment: 09/28/17 13:41 Impression: acute on chronic abd pain (chron's) exacerbation i have consider all the differential diagnosis regarding pt's chief medical complaints/clinical findings, including but are not limited to: abd pain A/P: abd pain - observe, supportive care 09/28/17 18:43 09/28/17 18:50 pt is comfortable, not in acute distress pt will be following up with his GI/surg at [facility] as scheduled pt is given wound cleaning material for his mid abd fistula wound pt is made aware of his medical results pt is encouraged bland diet pt is encouraged hydration pt will f/u as directed pt will be discharged home Re-evaluation Time: 13:42 Reassessment Condition: Improving,but remains with symptoms - Medication Orders Current Medication Orders: Discontinued Medications Oxycodone/Acetaminophen (Percocet 5/325 Mg Tab) 2 tab PO STAT STA Stop: 09/28/17 13:41 Last Admin: 09/28/17 13:55 Dose: 2 tab [facility] Pain Assessment Document 09/28/17 13:55 SF (Rec: 09/28/17 13:55 SF [id number]) Pain Reassessment Is this a pain reassessment? Yes Sleep Is patient sleeping during reassessment? No Presence of Pain Presence of Pain Yes Pain Scale Used Pain Scale Used Numeric Location Pain Location Body Site Abdomen Description Description Intermittent Disposition/Present on Arrival - Present on Arrival Any Indicators Present on Arrival: No History of DVT/PE: No History of Uncontrolled Diabetes: No Urinary Catheter: No History of Decub. Ulcer: No History Surgical Site Infection Following: None - Disposition Have Diagnosis and Disposition been Completed?: Yes Diagnosis: Crohns disease, Abdominal pain Disposition: HOME/ ROUTINE Disposition Time: 13:42 Patient Plan: Discharge Condition: STABLE Discharge Instructions (ExitCare): Crohn Disease (ED), Abdominal Pain (ED) Print Language: PASHTO Additional Instructions: Make sure to see your doctor in 1-2 days Make sure to see Dr Patrick (YOUR GI doctor) as scheduled DRINK PLENTY OF FLUIDS take your medications as prescribed RETURN TO ED IF worse pain, cant breath, persistent vomiting, high fever >101- 102 for hours, altered behavior, unable to urinate, heavy/persistent bleeding, passing out, chest pain, or other medical emergencies Prescriptions: Promethazine/Codeine [Codeine/Promethazine 10 MG/5 Ml-6.25 MG/5 Ml] 10 ml PO TID #120 ml Referrals: Navid Stephens MD [Primary Care Provider] - Follow up with primary Forms: [employer] (German)
== END 2017-09-28 14:02 | disposition home or self-care (01) ==
LOC: ED 12:45
DX: K50.90 Crohn's disease, unspecified, without complications (principal)

== ENCOUNTER 2017-09-30 11:18 | Emergency (ER) | payer MEDICAID ==
[2017-09-30 11:22] VITALS: BMI 18.1
[2017-09-30 11:32] VITALS: BP 113/68; PULSE 95; RESP 18; TEMP 98.3; O2SAT 100
[2017-09-30] MEDS ORDERED: Oxycodone/Acetaminophen 5/325 mg Tab PO STA (11:36)
--- NOTE | 2017-09-30 11:40 | ED PDOC ---
Arrival/HPI - General Chief Complaint: Abdominal Pain Time Seen by Provider: 09/30/17 11:35 Historian: Patient - History of Present Illness Narrative History of Present Illness (Text): 09/30/17 11:38 pt p/w < 1 day onset of left lower abd wound drainage, pt states abd pain is worsen as a result; pt described similiar episodes in the past; pt states no fever/chills/sweats, no cp/sob/palpitations, no nausea/vomiting, no changes to bowel is noted, no urinary changes; pt states no fall/trauma/sick contact, no travel; pt arrived to ED for wound care and further eval pt's without other complaints. 09/30/17 19:32 Time/Duration: 24 hours Symptom Onset: Sudden Symptom Course: Unchanged Severity Level: Severe Activities at Onset: Rest Context: Home Past Medical History - Provider Review Nursing Documentation Reviewed: Yes - Travel History Have you recently traveled outside [place] w/in the past 3 mons?: No - Past History Past History: No Previous - Infectious Disease Hx of Infectious Diseases: None - Tetanus Immunization Tetanus Immunization: Unknown - Cardiac Hx Cardiac Disorders: No - Pulmonary Hx Pneumonia: Yes - Neurological Hx Transient Ischemic Attacks (TIA): No - HEENT Hx HEENT Disorder: No - Renal Hx Renal Disorder: No - Endocrine/Metabolic Hx Endocrine Disorders: No - Hematological/Oncological Hx Anemia: Yes - Integumentary Hx Dermatological Disorder: Yes (RIGHT LOWER BACK FISTULA.DID I&D JANUARY 31 [facility],) Other/Comment: ABDOMINAL WALL ABSCESS. - Musculoskeletal/Rheumatological Hx Musculoskeletal Disorders: No Hx Falls: No - Gastrointestinal Hx Crohn's Disease: Yes - Genitourinary/Gynecological Hx Genitourinary Disorders: Yes Hx Urinary Tract Infection: Yes - Psychiatric Hx Anxiety: Yes Hx Substance Use: No - Surgical History Other/Comment: Colon resection - Anesthesia Hx Anesthesia: Yes Hx Anesthesia Reactions: No Hx Malignant Hyperthermia: No - Suicidal Assessment Feels Threatened In Home Enviroment: No Family/Social History - Physician Review Nursing Documentation Reviewed: Yes Family/Social History: No Known Family HX Smoking Status: Never Smoked Hx Alcohol Use: No Hx Substance Use: No Hx Substance Use Treatment: No Allergies/Home Meds Allergies/Adverse Reactions: Allergies FISH Allergy (Verified 09/24/17 15:02) RASH ketorolac [From Toradol] Allergy (Verified 09/24/17 15:02) RASH shellfish derived Adverse Reaction (Verified 09/24/17 15:02) ANGIOEDEMA Review of Systems - Review of Systems Constitutional: Normal Eyes: Normal ENT: Normal Respiratory: Normal Cardiovascular: Normal Gastrointestinal: Abdominal Pain, Other (left mid abd wound discharge) Genitourinary Male: Normal Musculoskeletal: Normal Skin: Normal Neurological: Normal Endocrine: Normal Hemo/Lymphatic: Normal Physical Exam Vital Signs Reviewed: Yes Vital Signs Temp Pulse Resp BP Pulse Ox 09/30/17 11:31 98.3 F 95 H 18 113/68 100 Temperature: Afebrile Blood Pressure: Normal Pulse: Regular Respiratory Rate: Normal Appearance: Positive for: Well-Appearing, Uncomfortable, Other (resting in bed, alert/awake, GCS = 15, oriented x 3, uncomfortable, cooperative, follows command with ease). No: Non-Toxic Pain Distress: None Mental Status: Positive for: Alert and Oriented X 3 - Systems Exam Head: Present: Atraumatic, Normocephalic Pupils: Present: PERRL Extroacular Muscles: Present: EOMI Conjunctiva: Present: Normal Ears: Present: Normal Mouth: Present: Moist Mucous Membranes, Normal Teeth Pharnyx: Present: Normal Nose (External): Present: Atraumatic Nose (Internal): Present: Normal Inspection Neck: Present: Normal Range of Motion Respiratory/Chest: Present: Clear to Auscultation Cardiovascular: Present: Regular Rate and Rhythm Abdomen: Present: Tenderness, Other (+ mild diffuse mid/right abd tenderness over prior surg wound sites, noted faint discharge over healed surg wound site, non-bloody, NO fluctuance is noted, no rebound/guarding/rigidity; no garg's sign, no rebound/guarding; pt with multiple well healed surg site, no expressible discharge is noted) Back: Present: Normal Inspection. No: Midline Tenderness Upper Extremity: Present: Normal Inspection, Normal ROM, NORMAL PULSES, Neurovascularly Intact, Capillary Refill < 2s Lower Extremity: Present: Normal Inspection, NORMAL PULSES, Normal ROM, Neurovascularly Intact, Capillary Refill < 2 s Neurological: Present: GCS=15, CN II-XII Intact Skin: Present: Warm Psychiatric: Present: Alert Medical Decision Making ED Course and Treatment: 09/30/17 11:38 Impression: abd wound drainage, local infection i have consider all the differential diagnosis regarding pt's chief medical complaints/clinical findings, including but are not limited to: r/o infection, local infection, abscess/drainage A/P: abd wound drainage - observe - wound care - pain control - supportive care 09/30/17 19:37 pt is again requesting 1 pain medication and an anxiolytic medication (xanax) for his symptoms pt is offered labs and possible CT; pt refused it all, stating that he has already had CT last week at [facility] and his lab works are usually WNL pt does not want any tests pt is agreeable with abx pt is agreeable with no prescription for his pain, pt is to see pain specialists prior to re-eval, i was notified by nursing staff that he had eloped pt left prior to my completion of pt's medical evaluation Re-evaluation Time: 13:30 Reassessment Condition: Improving,but remains with symptoms - Medication Orders Current Medication Orders: Discontinued Medications Alprazolam (Xanax) 1 mg PO ONCE ONE PRN Reason: Protocol Stop: 09/30/17 11:36 Last Admin: 09/30/17 11:54 Dose: 1 mg Clindamycin HCl (Cleocin) 300 mg PO STAT STA PRN Reason: Protocol Stop: 09/30/17 11:37 Last Admin: 09/30/17 11:54 Dose: 300 mg Oxycodone/Acetaminophen (Percocet 5/325 Mg Tab) 2 tab PO STAT STA Stop: 09/30/17 11:37 Last Admin: 09/30/17 11:54 Dose: 2 tab [facility] Pain Assessment Document 09/30/17 11:54 GMD (Rec: 09/30/17 11:54 GMD [id number]) Pain Reassessment Is this a pain reassessment? No Sleep Is patient sleeping during reassessment? No Presence of Pain Presence of Pain Yes Location Pain Location Body Site Abdomen Disposition/Present on Arrival - Present on Arrival Any Indicators Present on Arrival: No History of DVT/PE: No History of Uncontrolled Diabetes: No Urinary Catheter: No History of Decub. Ulcer: No History Surgical Site Infection Following: None - Disposition Have Diagnosis and Disposition been Completed?: Yes Diagnosis: Chronic abdominal wound infection, Chronic abdominal pain, Fistula, Crohn disease Disposition: HOME/ ROUTINE Disposition Time: 15:00 Patient Plan: Discharge Condition: STABLE Discharge Instructions (ExitCare): Chronic Wound Care (ED), Abdominal Pain (ED) Print Language: NORWEGIAN Additional Instructions: Make sure to see your doctor in 1-2 days YOU NEED TO SEE YOUR PAIN specialists next week DRINK PLENTY OF FLUIDS KEEP WOUNDS CLEAN AND DRY take your medications as prescribed RETURN TO ED IF worse pain, cant breath, persistent vomiting, high fever >101- 102 for hours, altered behavior, unable to urinate, heavy/persistent bleeding, passing out, chest pain, or other medical emergencies Referrals: Amanda Stephens MD [Primary Care Provider] - Follow up with primary Matt Ford MD [Staff Provider] - Follow up with primary Forms: [employer] (Slovak)
== END 2017-09-30 13:05 | disposition home or self-care (01) ==
LOC: ED 11:18
DX: T81.4XXA Infection following a procedure, initial encounter (principal); Y83.8 Other surgical procedures as the cause of abnormal reaction of the patient, or of later complication, without mention of misadventure at the time of the procedure; Y92.89 Other specified places as the place of occurrence of the external cause; K50.90 Crohn's disease, unspecified, without complications; R10.9 Unspecified abdominal pain

== ENCOUNTER 2017-10-01 09:52 | Emergency (ER) | payer MEDICAID ==
[2017-10-01 10:32] VITALS: RESP 18; TEMP 98; BMI 17.9
[2017-10-01] MEDS ORDERED: Oxycodone/Acetaminophen 5/325 mg Tab PO STA (10:42)
--- NOTE | 2017-10-01 10:42 | ED PDOC ---
Arrival/HPI - General Time Seen by Provider: 10/01/17 10:03 Historian: Patient - History of Present Illness Narrative History of Present Illness (Text): 10/01/17 10:33 22 y/o male w/ pmhx of crohn's colitis, s/p multiple coloresective surgeries, multiple intestino-cutaneous fistulae , on remicade infusion, likley chronic opiate dependence, presents to this Emergency department complaining of right side abdominal pain. Patient stated pain is chronic but he does not have pain medication. Patient stated he only wants pain medication and "something' for anxiety. He refused labs, or imaging. Past Medical History - Provider Review Nursing Documentation Reviewed: Yes - Past History Past History: No Previous - Infectious Disease Hx of Infectious Diseases: None - Tetanus Immunization Tetanus Immunization: Unknown - Cardiac Hx Cardiac Disorders: No - Pulmonary Hx Pneumonia: Yes - Neurological Hx Transient Ischemic Attacks (TIA): No - HEENT Hx HEENT Disorder: No - Renal Hx Renal Disorder: No - Endocrine/Metabolic Hx Endocrine Disorders: No - Hematological/Oncological Hx Anemia: Yes - Integumentary Hx Dermatological Disorder: Yes (RIGHT LOWER BACK FISTULA.DID I&D JANUARY 31 [facility],) Other/Comment: ABDOMINAL WALL ABSCESS. - Musculoskeletal/Rheumatological Hx Musculoskeletal Disorders: No Hx Falls: No - Gastrointestinal Hx Crohn's Disease: Yes - Genitourinary/Gynecological Hx Genitourinary Disorders: Yes Hx Urinary Tract Infection: Yes - Psychiatric Hx Anxiety: Yes Hx Substance Use: No - Surgical History Other/Comment: Colon resection - Anesthesia Hx Anesthesia: Yes Hx Anesthesia Reactions: No Hx Malignant Hyperthermia: No - Suicidal Assessment Feels Threatened In Home Enviroment: No Family/Social History - Physician Review Nursing Documentation Reviewed: Yes Family/Social History: Other (noncontributory) Smoking Status: Never Smoked Hx Alcohol Use: No Hx Substance Use: No Hx Substance Use Treatment: No Allergies/Home Meds Allergies/Adverse Reactions: Allergies FISH Allergy (Verified 10/01/17 10:42) RASH ketorolac [From Toradol] Allergy (Verified 10/01/17 10:42) RASH shellfish derived Adverse Reaction (Verified 10/01/17 10:42) ANGIOEDEMA Review of Systems - Review of Systems Constitutional: Normal. absent: Fatigue, Weight Change, Fevers Eyes: Normal ENT: Normal Respiratory: Normal. absent: SOB, Cough, Sputum, Wheezing Cardiovascular: Normal. absent: Chest Pain Gastrointestinal: Abdominal Pain. absent: Nausea, Vomiting Genitourinary Male: Normal. absent: Dysuria, Frequency, Hematuria Musculoskeletal: Normal Skin: Normal. absent: Rash Neurological: Normal. absent: Headache, Dizziness, Focal Weakness, Gait Changes , Speech Changes, Facial Droop, Disequilibrium Endocrine: Normal Hemo/Lymphatic: Normal Psychiatric: Normal Physical Exam Vital Signs Temp Pulse Resp BP Pulse Ox 10/01/17 10:25 98.0 F 90 18 105/55 L 99 Temperature: Afebrile Blood Pressure: Normal Pulse: Regular Respiratory Rate: Normal Appearance: Positive for: Well-Appearing, Non-Toxic, Comfortable Pain Distress: None Mental Status: Positive for: Alert and Oriented X 3 - Systems Exam Head: Present: Atraumatic, Normocephalic Pupils: Present: PERRL Extroacular Muscles: Present: EOMI Conjunctiva: Present: Normal Mouth: Present: Moist Mucous Membranes Neck: Present: Normal Range of Motion Respiratory/Chest: Present: Clear to Auscultation, Good Air Exchange. No: Respiratory Distress, Accessory Muscle Use, Wheezes, Rales, Retracting, Rhonchi Cardiovascular: Present: Regular Rate and Rhythm, Normal S1, S2. No: Murmurs Abdomen: Present: Normal Bowel Sounds, Scars, Other ((+) RLQ small fistula with serous drainage. No cellulitis , or induration. No purulent draiange noted. the abdomen is soft, nt/nd). No: Tenderness, Distention, Peritoneal Signs, Rebound, Guarding Upper Extremity: Present: Normal Inspection, Normal ROM Lower Extremity: Present: Normal Inspection, Normal ROM. No: CALF TENDERNESS Neurological: Present: GCS=15, CN II-XII Intact, Motor Func Grossly Intact, Normal Sensory Function, Normal Cerebellar Funct, Gait Normal Skin: Present: Warm, Dry, Normal Color. No: Rashes Psychiatric: Present: Alert, Oriented x 3, Normal Insight, Normal Concentration Medical Decision Making ED Course and Treatment: 10/01/17 10:43 Patient continued refusing Labs, and CT scan. He stated he has had multiple CT and labs in the past. Patient only wants pain medication and antianxieties medication, and he wants to sign Leaving Against Medical Advice (AMA):. The patient is choosing to leave against medical advice. I have personally explained to the patient that choosing to do so may result in permanent bodily harm or . I have discussed at great length that without further evaluation and monitoring there may be unforeseen circumstances and/or deterioration causing permanent bodily harm or as a result of their choice. The patient is alert, oriented, and shows the mental capacity to make clear decisions regarding the patients health care at this time. The patient continues to wish to leave against medical advice. In light of the patients decision to leave against medical advice, follow-up has been recommended and the patient is aware of the importance to following up as instructed. The patient has been advised that they should return to the emergency room immediately if they change their mind at any time, or if their condition begins to change or worsen in any way. 10/01/17 10:55 I spoke with patient regarding the use of Percocet or other Opiods medication, and also the use Xanax. I told him the risk of drug addiction with these agents. He understood risk, and he stated he has an appointment with his doctor tomorrow, and he will consult with his doctor about pain management. He requested ABX 10/01/17 11:01 Pt is offered labs and possible CT; pt refused it all, stating that [place] [facility] [place] WNL Pt does not want any tests, pt is agreeable with abx Pt is agreeable with no prescription for his pain, pt is to see pain specialists 10/01/17 11:02 I reviewed the risk of tendonitis and tendon rupture when taking Ciprofloxacin for up to 2 months. He was recommended to rest and avoid gym or running.till clear by his doctor. Re-evaluation Time: 10:57 Reassessment Condition: Re-examined, Unchanged - Medication Orders Current Medication Orders: Discontinued Medications Alprazolam (Xanax) 0.25 mg PO STAT STA PRN Reason: Protocol Stop: 10/01/17 10:44 Last Admin: 10/01/17 10:53 Dose: 0.25 mg Oxycodone/Acetaminophen (Percocet 5/325 Mg Tab) 2 tab PO STAT STA Stop: 10/01/17 10:43 Last Admin: 10/01/17 10:53 Dose: 2 tab MAR Pain Assessment Document 10/01/17 10:53 SF (Rec: 10/01/17 10:53 [id number]) Pain Reassessment Is this a pain reassessment? Yes Sleep Is patient sleeping during reassessment? No Presence of Pain Presence of Pain Yes Pain Scale Used Pain Scale Used Numeric Location Pain Location Body Site Abdomen Description Description Constant Disposition/Present on Arrival - Present on Arrival Any Indicators Present on Arrival: No History of DVT/PE: No History of Uncontrolled Diabetes: No Urinary Catheter: No History Surgical Site Infection Following: None - Disposition Have Diagnosis and Disposition been Completed?: Yes Diagnosis: Abdominal fistula, Abdominal pain, Chronic abdominal wound infection Disposition: AGAINST MEDICAL ADVICE Disposition Time: 10:59 Condition: UNKNOWN Additional Instructions: See your doctor tomorrow. return to emergency if wound worsen or pain worsen. Prescriptions: Ciprofloxacin HCl [Cipro] 500 mg PO BID #14 tablet Metronidazole [Flagyl] 500 mg PO BID #14 tablet Referrals: [facility] [Outside] - Follow up with primary [facility] [Outside] - Follow up with primary
[2017-10-01 10:59] VITALS: BP 108/60; PULSE 88; O2SAT 100
== END 2017-10-01 11:00 | disposition left against medical advice (07) ==
LOC: ED 09:52
DX: K63.2 Fistula of intestine (principal); R10.9 Unspecified abdominal pain; T81.4XXA Infection following a procedure, initial encounter; Y83.8 Other surgical procedures as the cause of abnormal reaction of the patient, or of later complication, without mention of misadventure at the time of the procedure; Y92.89 Other specified places as the place of occurrence of the external cause

== ENCOUNTER 2017-10-02 04:13 | Emergency (ER) | payer MEDICAID ==
[2017-10-02 04:14] VITALS: BMI 17.9
[2017-10-02 04:32] VITALS: BP 106/54; PULSE 84; RESP 17; TEMP 98; O2SAT 100
--- NOTE | 2017-10-02 04:44 | ED PDOC ---
Arrival/HPI - General Chief Complaint: Abdominal Pain Time Seen by Provider: 10/02/17 04:38 Historian: Patient - History of Present Illness Narrative History of Present Illness (Text): 10/02/17 04:44 Ramirez Gaytan is a 22 year old male, whose past medical history includes Crohn 's disease on Remicade infusions, multiple intestino-cutaneous fistulae, chronic abdominal abscess, and opiate dependence, who presents to the Emergency department complaining of right-sided abdominal pain. Patient reports abdominal pain is chronic, but he does not have any pain medication and will not see his PMD until tomorrow. Patient only requesting pain and anxiety medication. Patient refusing any labwork/imaging. Patient denies any fever, chills, chest pain, shortness of breath, nausea, vomiting, neck pain, headache, dizziness, or any other complaints. Symptom Onset: Gradual Symptom Course: Unchanged Activities at Onset: Light Context: Home Past Medical History - Provider Review Nursing Documentation Reviewed: Yes - Past History Past History: No Previous - Infectious Disease Hx of Infectious Diseases: None - Tetanus Immunization Tetanus Immunization: Unknown - Cardiac Hx Cardiac Disorders: No - Pulmonary Hx Pneumonia: Yes - Neurological Hx Transient Ischemic Attacks (TIA): No - HEENT Hx HEENT Disorder: No - Renal Hx Renal Disorder: No - Endocrine/Metabolic Hx Endocrine Disorders: No - Hematological/Oncological Hx Anemia: Yes - Integumentary Hx Dermatological Disorder: Yes (RIGHT LOWER BACK FISTULA.DID I&D JANUARY 31 [facility],) Other/Comment: ABDOMINAL WALL ABSCESS. - Musculoskeletal/Rheumatological Hx Musculoskeletal Disorders: No Hx Falls: No - Gastrointestinal Hx Crohn's Disease: Yes - Genitourinary/Gynecological Hx Genitourinary Disorders: Yes Hx Urinary Tract Infection: Yes - Psychiatric Hx Anxiety: Yes Hx Substance Use: No - Surgical History Other/Comment: Colon resection - Anesthesia Hx Anesthesia: Yes Hx Anesthesia Reactions: No Hx Malignant Hyperthermia: No - Suicidal Assessment Feels Threatened In Home Enviroment: No Family/Social History - Physician Review Nursing Documentation Reviewed: Yes Family/Social History: Unknown Family HX Smoking Status: Never Smoked Hx Alcohol Use: No Hx Substance Use: No Hx Substance Use Treatment: No Allergies/Home Meds Allergies/Adverse Reactions: Allergies FISH Allergy (Verified 10/01/17 10:42) RASH ketorolac [From Toradol] Allergy (Verified 10/01/17 10:42) RASH shellfish derived Adverse Reaction (Verified 10/01/17 10:42) ANGIOEDEMA Review of Systems - Physician Review All systems were reviewed & negative as marked: Yes - Review of Systems Constitutional: Normal. absent: Fevers Eyes: Normal ENT: Normal Respiratory: Normal. absent: SOB, Cough Cardiovascular: Normal. absent: Chest Pain Gastrointestinal: Abdominal Pain Genitourinary Male: Normal. absent: Dysuria, Frequency, Hematuria, Urinary Output Changes Musculoskeletal: Normal. absent: Back Pain, Neck Pain Skin: Normal. absent: Rash Neurological: Normal. absent: Headache, Dizziness Endocrine: Normal Hemo/Lymphatic: Normal Psychiatric: Normal Physical Exam Vital Signs Reviewed: Yes Vital Signs Temp Pulse Resp BP Pulse Ox 10/02/17 04:29 98 F 84 17 106/54 L 100 Temperature: Afebrile Blood Pressure: Normal Pulse: Regular Respiratory Rate: Normal Appearance: Positive for: Well-Appearing, Non-Toxic, Comfortable Pain Distress: None Mental Status: Positive for: Alert and Oriented X 3 - Systems Exam Head: Present: Atraumatic, Normocephalic Pupils: Present: PERRL Extroacular Muscles: Present: EOMI Conjunctiva: Present: Normal Mouth: Present: Moist Mucous Membranes Neck: Present: Normal Range of Motion Respiratory/Chest: Present: Clear to Auscultation, Good Air Exchange. No: Respiratory Distress, Accessory Muscle Use Cardiovascular: Present: Regular Rate and Rhythm, Normal S1, S2. No: Murmurs Abdomen: Present: Normal Bowel Sounds, Other (small RLQ fistula with serous drainage, no surrounding cellulitis/drainage, no purulent drainage). No: Tenderness, Distention, Peritoneal Signs Back: Present: Normal Inspection. No: CVA Tenderness, Midline Tenderness, Paraspinal Tenderness Upper Extremity: Present: Normal Inspection. No: Cyanosis, Edema Lower Extremity: Present: Normal Inspection. No: Edema Neurological: Present: GCS=15, CN II-XII Intact, Speech Normal Skin: Present: Warm, Dry, Normal Color. No: Rashes Psychiatric: Present: Alert, Oriented x 3, Normal Insight, Normal Concentration Medical Decision Making ED Course and Treatment: 10/02/17 04:44 Impression: 22 year old male complaining of chronic right-sided abdominal pain. Plan: -- Percocet -- Xanax -- Reassess and disposition Prior Visits: Notes and results from previous visits were reviewed. On 10/01/2017, pt was seen in the Emergency department for chronic right-sided abdominal pain. Pt signed out AMA. Progress Notes: Pt was offered labwork/imaging for further evaluation of abdominal pain/ fistula. Pt states he is scheduled to follow-up with his PMD and only wants medication for his chronic pain/anxiety. Pt will sign out against medical advice. Leaving Against Medical Advice (AMA): The patient is choosing to leave against medical advice. I have personally explained to the patient that choosing to do so may result in permanent bodily harm or . I have discussed at great length that without further evaluation and monitoring there may be unforeseen circumstances and/or deterioration causing permanent bodily harm or as a result of their choice. The patient is alert, oriented, and shows the mental capacity to make clear decisions regarding the patients health care at this time. The patient continues to wish to leave against medical advice. In light of the patients decision to leave against medical advice, the patient is aware of the importance to following up as instructed. The patient has been advised that they should return to the emergency room immediately if they change their mind at any time, or if their condition begins to change or worsen in any way. - Medication Orders Current Medication Orders: Discontinued Medications Alprazolam (Xanax) 0.25 mg PO ONCE ONE Stop: 10/02/17 04:50 Last Admin: 10/02/17 05:02 Dose: 0.25 mg Oxycodone/Acetaminophen (Percocet 5/325 Mg Tab) 2 tab PO STAT STA Stop: 10/02/17 04:50 Last Admin: 10/02/17 05:02 Dose: 2 tab [facility] Pain Assessment Document 10/02/17 05:02 Aziza (Rec: 10/02/17 05:03 Aziza [id number]) Pain Reassessment Is this a pain reassessment? No Sleep Is patient sleeping during reassessment? No Presence of Pain Presence of Pain Yes Pain Scale Used Pain Scale Used Numeric Location Left, Right or Bilateral Right Upper or Lower Lower Pain Location Body Site Abdomen Description Description Sharp Intensity of Pain at present 8 Acceptable Level of Pain 0 Pain Behavior Irritability Aggravating Factors ADL's - Scribe Statement The provider has reviewed the documentation as recorded by the James Herrera Provider Scribe Attestation: All medical record entries made by the Aminahibsherri were at my direction and personally dictated by me. I have reviewed the chart and agree that the record accurately reflects my personal performance of the history, physical exam, medical decision making, and the department course for this patient. I have also personally directed, reviewed, and agree with the discharge instructions and disposition. Disposition/Present on Arrival - Present on Arrival Any Indicators Present on Arrival: No History of DVT/PE: No History of Uncontrolled Diabetes: No Urinary Catheter: No History of Decub. Ulcer: No History Surgical Site Infection Following: None - Disposition Have Diagnosis and Disposition been Completed?: Yes Diagnosis: Crohns disease, Abdominal fistula, Chronic abdominal wound infection Disposition: AGAINST MEDICAL ADVICE Disposition Time: 05:20 Condition: STABLE Additional Instructions: Continue your current meds/follow up with your GI specialist tommorrow as scheduled Forms: [employer] (Albanian)
[2017-10-02] MEDS ORDERED: Oxycodone/Acetaminophen 5/325 mg Tab PO STA (04:49)
== END 2017-10-02 05:20 | disposition left against medical advice (07) ==
LOC: ED 04:13
DX: K50.913 Crohn's disease, unspecified, with fistula (principal); T81.4XXA Infection following a procedure, initial encounter; Y83.8 Other surgical procedures as the cause of abnormal reaction of the patient, or of later complication, without mention of misadventure at the time of the procedure; Y92.89 Other specified places as the place of occurrence of the external cause

== ENCOUNTER 2017-10-03 07:23 | Emergency (ER) | payer MEDICAID ==
[2017-10-03 07:23] VITALS: BMI 17.9
[2017-10-03 07:35] VITALS: BP 121/62; PULSE 84; RESP 18; TEMP 97.7; O2SAT 100
--- NOTE | 2017-10-03 07:49 | ED PDOC ---
Arrival/HPI - General Chief Complaint: Abdominal Pain Time Seen by Provider: 10/03/17 07:30 - History of Present Illness Narrative History of Present Illness (Text): Ramirez Gaytan is a 22 year old male, whose past medical history includes Crohn 's disease on Remicade infusions, multiple intestino-cutaneous fistulae, chronic abdominal abscess, and opiate dependence, who presents to the Emergency department complaining of right-sided abdominal pain. Patient reports abdominal pain is chronic, but he does not have any pain medication and is waiting for insurance to be instituted on 10/05/17. Patient only requesting pain and anxiety medication. Patient refusing any labwork/imaging. Patient denies any fever, chills, chest pain, shortness of breath, nausea, vomiting, neck pain, headache, dizziness, or any other complaints. Past Medical History - Past History Past History: No Previous - Infectious Disease Hx of Infectious Diseases: None - Tetanus Immunization Tetanus Immunization: Unknown - Cardiac Hx Cardiac Disorders: No - Pulmonary Hx Pneumonia: Yes - Neurological Hx Transient Ischemic Attacks (TIA): No - HEENT Hx HEENT Disorder: No - Renal Hx Renal Disorder: No - Endocrine/Metabolic Hx Endocrine Disorders: No - Hematological/Oncological Hx Anemia: Yes - Integumentary Hx Dermatological Disorder: Yes (RIGHT LOWER BACK FISTULA.DID I&D JANUARY 31 [facility],) Other/Comment: ABDOMINAL WALL ABSCESS. - Musculoskeletal/Rheumatological Hx Musculoskeletal Disorders: No Hx Falls: No - Gastrointestinal Hx Crohn's Disease: Yes - Genitourinary/Gynecological Hx Genitourinary Disorders: Yes Hx Urinary Tract Infection: Yes - Psychiatric Hx Anxiety: Yes Hx Substance Use: No - Surgical History Other/Comment: Colon resection - Anesthesia Hx Anesthesia: Yes Hx Anesthesia Reactions: No Hx Malignant Hyperthermia: No - Suicidal Assessment Feels Threatened In Home Enviroment: No Family/Social History Family/Social History: No Known Family HX Smoking Status: Never Smoked Hx Alcohol Use: No Hx Substance Use: No Hx Substance Use Treatment: No Allergies/Home Meds Allergies/Adverse Reactions: Allergies FISH Allergy (Verified 10/03/17 07:34) RASH ketorolac [From Toradol] Allergy (Verified 10/03/17 07:34) RASH shellfish derived Adverse Reaction (Verified 10/03/17 07:34) ANGIOEDEMA Home Medications: Home Meds Medication Instructions Recorded Confirmed Ramicade IV 10/03/17 Review of Systems - Physician Review All systems were reviewed & negative as marked: Yes - Review of Systems Constitutional: absent: Fevers Cardiovascular: absent: Chest Pain Physical Exam - Physical Exam Narrative Physical Exam (Text): Head: Present: Atraumatic, Normocephalic Pupils: Present: PERRL Extroacular Muscles: Present: EOMI Conjunctiva: Present: Normal Mouth: Present: Moist Mucous Membranes Neck: Present: Normal Range of Motion Respiratory/Chest: Present: Clear to Auscultation, Good Air Exchange. No: Respiratory Distress, Accessory Muscle Use Cardiovascular: Present: Regular Rate and Rhythm, Normal S1, S2. No: Murmurs Abdomen: Present: Normal Bowel Sounds, Other (small RLQ and R flank fistula with serous drainage, no surrounding cellulitis/drainage, no purulent drainage) . No: Tenderness, Distention, Peritoneal Signs Back: Present: Normal Inspection. No: CVA Tenderness, Midline Tenderness, Paraspinal Tenderness Upper Extremity: Present: Normal Inspection. No: Cyanosis, Edema Lower Extremity: Present: Normal Inspection. No: Edema Neurological: Present: GCS=15, CN II-XII Intact, Speech Normal Skin: Present: Warm, Dry, Normal Color. No: Rashes Psychiatric: Present: Alert, Oriented x 3, Normal Insight, Normal Concentration Vital Signs Temp Pulse Resp BP Pulse Ox 10/03/17 07:34 97.7 F 84 18 121/62 100 Medical Decision Making ED Course and Treatment: Pain control, Xanax, d/c home, f/u primary care, return to ED for fever, worsening pain, discharge of pus, chills, dyspnea, or any other problem. Disposition/Present on Arrival - Present on Arrival Any Indicators Present on Arrival: No History of DVT/PE: No History of Uncontrolled Diabetes: No Urinary Catheter: No History of Decub. Ulcer: No History Surgical Site Infection Following: None - Disposition Have Diagnosis and Disposition been Completed?: Yes Diagnosis: Abdominal pain Disposition: HOME/ ROUTINE Disposition Time: 07:50 Patient Plan: Discharge Patient Problems: Current Active Problems Problem Status Onset Abdominal pain Acute Condition: STABLE Discharge Instructions (ExitCare): Crohn Disease (ED) Forms: [employer] (Mongolian)
[2017-10-03] MEDS ORDERED: Oxycodone/Acetaminophen 5/325 mg Tab PO STA ×2 (07:50→07:52)
== END 2017-10-03 08:06 | disposition home or self-care (01) ==
LOC: ED 07:23
DX: R10.9 Unspecified abdominal pain (principal)

== ENCOUNTER 2017-10-04 05:35 | Emergency (ER) | payer MEDICAID ==
[2017-10-04 05:38] VITALS: BMI 17.4
--- NOTE | 2017-10-04 05:43 | ED PDOC ---
Arrival/HPI - General Time Seen by Provider: 10/04/17 05:36 Historian: Patient - History of Present Illness Narrative History of Present Illness (Text): 10/04/17 05:57 Ramirez Beavers is a 22 Year old male, whose past medical history includes crohn's disease and anemia, who presents to the Emergency department c/o abdominal pain and vomiting since 2 days ago. Patient was recently seen in the Emergency department. No other complaints were made. Time/Duration: < week Symptom Onset: Sudden Symptom Course: Unchanged Past Medical History - Provider Review Nursing Documentation Reviewed: Yes - Past History Past History: No Previous - Infectious Disease Hx of Infectious Diseases: None - Tetanus Immunization Tetanus Immunization: Unknown - Cardiac Hx Cardiac Disorders: No - Pulmonary Hx Pneumonia: Yes - Neurological Hx Transient Ischemic Attacks (TIA): No - HEENT Hx HEENT Disorder: No - Renal Hx Renal Disorder: No - Endocrine/Metabolic Hx Endocrine Disorders: No - Hematological/Oncological Hx Anemia: Yes - Integumentary Hx Dermatological Disorder: Yes (RIGHT LOWER BACK FISTULA.DID I&D JANUARY 31 [facility],) Other/Comment: ABDOMINAL WALL ABSCESS. - Musculoskeletal/Rheumatological Hx Musculoskeletal Disorders: No Hx Falls: No - Gastrointestinal Hx Crohn's Disease: Yes - Genitourinary/Gynecological Hx Genitourinary Disorders: Yes Hx Urinary Tract Infection: Yes - Psychiatric Hx Anxiety: Yes Hx Substance Use: No - Surgical History Other/Comment: Colon resection - Anesthesia Hx Anesthesia: Yes Hx Anesthesia Reactions: No Hx Malignant Hyperthermia: No - Suicidal Assessment Feels Threatened In Home Enviroment: No Family/Social History - Physician Review Nursing Documentation Reviewed: Yes Family/Social History: Unknown Family HX Smoking Status: Never Smoked Hx Alcohol Use: No Hx Substance Use: No Hx Substance Use Treatment: No Allergies/Home Meds Allergies/Adverse Reactions: Allergies FISH Allergy (Verified 10/04/17 05:39) RASH ketorolac [From Toradol] Allergy (Verified 10/04/17 05:39) RASH shellfish derived Adverse Reaction (Verified 10/04/17 05:39) ANGIOEDEMA Home Medications: Home Meds Medication Instructions Recorded Confirmed Ramicade IV 10/03/17 Review of Systems - Physician Review All systems were reviewed & negative as marked: Yes - Review of Systems Constitutional: absent: Fevers Respiratory: absent: SOB Cardiovascular: absent: Chest Pain Gastrointestinal: Abdominal Pain, Vomiting Physical Exam Vital Signs Reviewed: Yes Vital Signs Temp Pulse Resp BP Pulse Ox 10/04/17 05:45 98.4 F 87 18 110/52 L 100 Temperature: Afebrile Blood Pressure: Hypotensive Pulse: Regular Respiratory Rate: Normal Appearance: Positive for: Well-Appearing, Non-Toxic, Comfortable Pain Distress: None Mental Status: Positive for: Alert and Oriented X 3 - Systems Exam Head: Present: Atraumatic, Normocephalic Pupils: Present: PERRL Extroacular Muscles: Present: EOMI Conjunctiva: Present: Normal Mouth: Present: Moist Mucous Membranes Neck: Present: Normal Range of Motion Respiratory/Chest: Present: Clear to Auscultation, Good Air Exchange. No: Respiratory Distress, Accessory Muscle Use Cardiovascular: Present: Regular Rate and Rhythm, Normal S1, S2. No: Murmurs Abdomen: Present: Tenderness (mild diffused tenderness), Normal Bowel Sounds. No: Distention, Peritoneal Signs Back: Present: Normal Inspection Upper Extremity: Present: Normal Inspection. No: Cyanosis, Edema Lower Extremity: Present: Normal Inspection. No: Edema Neurological: Present: GCS=15, CN II-XII Intact, Speech Normal Skin: Present: Warm, Dry, Normal Color. No: Rashes Psychiatric: Present: Alert, Oriented x 3, Normal Insight, Normal Concentration Medical Decision Making ED Course and Treatment: 10/04/17 Impression: 22 Year old male with mild diffused tenderness Complaining of abdominal pain and vomiting. Plan: -- Labs -- Reassess and disposition Progress Notes: - Lab Interpretations I have reviewed the lab results: Yes - Medication Orders Current Medication Orders: Discontinued Medications Alprazolam (Xanax) 0.25 mg PO STAT STA PRN Reason: Protocol Stop: 10/04/17 06:06 Last Admin: 10/04/17 06:13 Dose: 0.25 mg Oxycodone/Acetaminophen (Percocet 5/325 Mg Tab) 2 tab PO STAT STA Stop: 10/04/17 06:04 Last Admin: 10/04/17 06:13 Dose: 2 tab MAR Pain Assessment Document 10/04/17 06:13 CNR (Rec: 10/04/17 06:13 [facility]NR [facility] [id number] Pain Reassessment Is this a pain reassessment? Yes - Scribe Statement The provider has reviewed the documentation as recorded by the Scribe Disposition/Present on Arrival - Present on Arrival Any Indicators Present on Arrival: No History of DVT/PE: No History of Uncontrolled Diabetes: No Urinary Catheter: No History Surgical Site Infection Following: None - Disposition Have Diagnosis and Disposition been Completed?: Yes Diagnosis: Abdominal pain Disposition: ELOPEMENT - ER ONLY Disposition Time: 06:38 Condition: UNKNOWN Forms: [employer]GEN (Turkmen)
[2017-10-04 05:45] VITALS: BP 110/52; PULSE 87; RESP 18; TEMP 98.4; O2SAT 100
[2017-10-04] MEDS: Oxycodone/Acetaminophen 5/325 mg Tab PO STA (06:13)
== END 2017-10-04 06:32 | disposition left against medical advice (07) ==
LOC: ED 05:35
DX: R10.9 Unspecified abdominal pain (principal)

== ENCOUNTER 2017-10-17 10:41 | Emergency (ER) | payer MEDICAID ==
[2017-10-17 10:57] VITALS: BMI 18.3
[2017-10-17 10:58] VITALS: BP 104/56; PULSE 86; RESP 18; TEMP 98.6; O2SAT 98
--- NOTE | 2017-10-17 11:30 | ED PDOC ---
Arrival/HPI - General Chief Complaint: Flu-like Symptoms Time Seen by Provider: 10/17/17 10:55 Historian: Patient - History of Present Illness Narrative History of Present Illness (Text): 10/17/17 11:30 A 22 year old male, whose past medical history includes Crohns disease, and chronic lower abdominal pain, presents to the emergency department complaining of runny nose and fever. Patient states fever currently resolved. Patient reports his bones are hurting and his Crohns is "acting up". Patient notes he will see his surgeon next week, doesn't have a PMD. Reports diarrhea but denies any vomiting or any other complaints at this time. Symptom Onset: Sudden Symptom Course: Unchanged Activities at Onset: Rest Context: Home Past Medical History - Provider Review Nursing Documentation Reviewed: Yes - Past History Past History: No Previous - Infectious Disease Hx of Infectious Diseases: None - Tetanus Immunization Tetanus Immunization: Unknown - Cardiac Hx Cardiac Disorders: No - Pulmonary Hx Pneumonia: Yes - Neurological Hx Transient Ischemic Attacks (TIA): No - HEENT Hx HEENT Disorder: No - Renal Hx Renal Disorder: No - Endocrine/Metabolic Hx Endocrine Disorders: No - Hematological/Oncological Hx Anemia: Yes - Integumentary Hx Dermatological Disorder: Yes (RIGHT LOWER BACK FISTULA.DID I&D JANUARY 31 [facility],) Other/Comment: ABDOMINAL WALL ABSCESS. - Musculoskeletal/Rheumatological Hx Musculoskeletal Disorders: No Hx Falls: No - Gastrointestinal Hx Crohn's Disease: Yes - Genitourinary/Gynecological Hx Genitourinary Disorders: Yes Hx Urinary Tract Infection: Yes - Psychiatric Hx Anxiety: Yes Hx Substance Use: No - Surgical History Other/Comment: Colon resection - Anesthesia Hx Anesthesia: Yes Hx Anesthesia Reactions: No Hx Malignant Hyperthermia: No - Suicidal Assessment Feels Threatened In Home Enviroment: No Family/Social History - Physician Review Nursing Documentation Reviewed: Yes Family/Social History: No Known Family HX Smoking Status: Never Smoked Hx Alcohol Use: No Hx Substance Use: No Hx Substance Use Treatment: No Allergies/Home Meds Allergies/Adverse Reactions: Allergies FISH Allergy (Verified 10/08/17 09:54) RASH ketorolac [From Toradol] Allergy (Verified 10/08/17 09:54) RASH shellfish derived Adverse Reaction (Verified 10/08/17 09:54) ANGIOEDEMA Home Medications: Home Meds Medication Instructions Recorded Confirmed Ramicade IV 10/03/17 Review of Systems - Physician Review All systems were reviewed & negative as marked: Yes - Review of Systems Constitutional: Fevers (resolved) ENT: Other (runny nose) Gastrointestinal: Diarrhea. absent: Vomiting Physical Exam Vital Signs Reviewed: Yes Vital Signs Temp Pulse Resp BP Pulse Ox 10/17/17 10:58 98.6 F 86 18 104/56 L 98 10/17/17 10:47 98.6 F 86 18 104/56 L 98 Temperature: Afebrile Blood Pressure: Hypotensive Pulse: Regular Respiratory Rate: Normal Appearance: Positive for: Well-Appearing, Non-Toxic, Comfortable Pain Distress: None Mental Status: Positive for: Alert and Oriented X 3 - Systems Exam Head: Present: Atraumatic, Normocephalic Pupils: Present: PERRL Extroacular Muscles: Present: EOMI Conjunctiva: Present: Normal Mouth: Present: Moist Mucous Membranes Nose (Internal): Present: Other (congestion) Neck: Present: Normal Range of Motion Respiratory/Chest: Present: Clear to Auscultation, Good Air Exchange. No: Respiratory Distress, Accessory Muscle Use Cardiovascular: Present: Regular Rate and Rhythm, Normal S1, S2. No: Murmurs Abdomen: Present: Tenderness (diffuse), Normal Bowel Sounds, Guarding (voluntary ). No: Distention, Peritoneal Signs Back: Present: Normal Inspection Upper Extremity: Present: Normal Inspection. No: Cyanosis, Edema Lower Extremity: Present: Normal Inspection. No: Edema Neurological: Present: GCS=15, CN II-XII Intact, Speech Normal Skin: Present: Warm, Dry, Normal Color. No: Rashes Psychiatric: Present: Alert, Oriented x 3, Normal Insight, Normal Concentration Medical Decision Making ED Course and Treatment: 10/17/17 11:27 Impression: A 22 year old male with runny nose and fever. Plan: -- labs -- Ultram -- Reassess and disposition Prior Visits: Notes and results from previous visits were reviewed. Patient was last seen in the emergency department on 10/08/17 for evaluation of lower abdominal pain and left lower dental pain. Progress Notes: Patient focused on receiving Percocet tablets and doesn't want to consider other pain medications. - Medication Orders Current Medication Orders: Discontinued Medications Tramadol HCl (Ultram) 100 mg PO STAT STA Stop: 10/17/17 11:26 Last Admin: 10/17/17 11:35 Dose: 100 mg MAR Pain Assessment Document 10/17/17 11:35 KEELY (Rec: 10/17/17 11:35 FABIOCresencio [id number]) Pain Reassessment Is this a pain reassessment? No Sleep Is patient sleeping during reassessment? No Presence of Pain Presence of Pain Yes - Scribe Statement The provider has reviewed the documentation as recorded by the Scribsherri Tripp Provider Scribe Attestation: All medical record entries made by the Scribe were at my direction and personally dictated by me. I have reviewed the chart and agree that the record accurately reflects my personal performance of the history, physical exam, medical decision making, and the department course for this patient. I have also personally directed, reviewed, and agree with the discharge instructions and disposition. Disposition/Present on Arrival - Present on Arrival Any Indicators Present on Arrival: No History of DVT/PE: No History of Uncontrolled Diabetes: No Urinary Catheter: No History of Decub. Ulcer: No History Surgical Site Infection Following: None - Disposition Have Diagnosis and Disposition been Completed?: Yes Diagnosis: URI (upper respiratory infection), Crohns disease Disposition: HOME/ ROUTINE Disposition Time: 11:30 Patient Plan: Discharge Patient Problems: Current Active Problems Problem Status Onset Crohns disease Acute URI (upper respiratory infection) Acute Condition: STABLE Additional Instructions: Decongestants for cough and cold symptoms. Prescriptions: Tramadol HCl [Ultram] 100 mg PO TID PRN #20 tablet PRN Reason: Pain, Moderate (4-7) Forms: [employer] (Zambian)
== END 2017-10-17 11:42 | disposition home or self-care (01) ==
LOC: ED 10:41
DX: J06.9 Acute upper respiratory infection, unspecified (principal); K50.90 Crohn's disease, unspecified, without complications

== ENCOUNTER 2017-10-20 18:24 | Emergency (ER) | payer MEDICAID ==
[2017-10-20 18:25] VITALS: BMI 18.3
== END 2017-10-20 19:03 | disposition left against medical advice (07) ==
LOC: ED 18:24
DX: Z02.89 Encounter for other administrative examinations (principal); R10.9 Unspecified abdominal pain

== ENCOUNTER 2017-10-21 18:30 | Emergency (ER) | payer MEDICAID ==
[2017-10-21 18:46] VITALS: RESP 18; BMI 17.8
[2017-10-21] MEDS ORDERED: oxyCODONE 10 mg Immediate Release Tab PO STA (19:33)
--- NOTE | 2017-10-21 19:37 | ED PDOC ---
Arrival/HPI - General Chief Complaint: Abdominal Pain - History of Present Illness Narrative History of Present Illness (Text): 10/21/17 19:38 Pt is a 22 yo male with PMH of Crohn's Disease presents to Emergency department with increased abdominal pain over baseline pain from crohns disease. Pt also complains of diarrhea, which is normal for him. Pt also states that pus draining from abdomen. Pt states that this has happened in past, but when he recieves his dose of Remicade (every 8 weeks) the drainage stops. Pt requesting for pain medication today, until he can follow up with his surgeon. Past Medical History - Past History Past History: No Previous - Infectious Disease Hx of Infectious Diseases: None - Tetanus Immunization Tetanus Immunization: Unknown - Cardiac Hx Cardiac Disorders: No - Pulmonary Hx Pneumonia: Yes - Neurological Hx Transient Ischemic Attacks (TIA): No - HEENT Hx HEENT Disorder: No - Renal Hx Renal Disorder: No - Endocrine/Metabolic Hx Endocrine Disorders: No - Hematological/Oncological Hx Anemia: Yes - Integumentary Hx Dermatological Disorder: Yes (RIGHT LOWER BACK FISTULA.DID I&D JANUARY 31 [facility],) Other/Comment: ABDOMINAL WALL ABSCESS. - Musculoskeletal/Rheumatological Hx Musculoskeletal Disorders: No Hx Falls: No - Gastrointestinal Hx Gastrointestinal Disorders: Yes Hx Crohn's Disease: Yes - Genitourinary/Gynecological Hx Genitourinary Disorders: Yes Hx Urinary Tract Infection: Yes - Psychiatric Hx Anxiety: Yes Hx Substance Use: No - Surgical History Other/Comment: Colon resection - Anesthesia Hx Anesthesia: Yes Hx Anesthesia Reactions: No Hx Malignant Hyperthermia: No - Suicidal Assessment Feels Threatened In Home Enviroment: No Family/Social History Family/Social History: No Known Family HX Smoking Status: Never Smoked Hx Alcohol Use: No Hx Substance Use: No Hx Substance Use Treatment: No Allergies/Home Meds Allergies/Adverse Reactions: Allergies FISH Allergy (Verified 10/21/17 18:46) RASH ketorolac [From Toradol] Allergy (Verified 10/21/17 18:46) RASH shellfish derived Adverse Reaction (Verified 10/21/17 18:46) ANGIOEDEMA Home Medications: Home Meds Medication Instructions Recorded Confirmed Ramicade IV 10/03/17 Review of Systems - Review of Systems Constitutional: Normal Eyes: Normal ENT: Normal Respiratory: Normal Cardiovascular: Normal Gastrointestinal: Abdominal Pain Genitourinary Male: Normal Musculoskeletal: Normal Skin: Normal Neurological: Normal Endocrine: Normal Hemo/Lymphatic: Normal Psychiatric: Normal Physical Exam Vital Signs Reviewed: Yes Vital Signs Temp Pulse Resp BP Pulse Ox 10/21/17 18:42 98.9 F 97 H 18 108/64 95 - Systems Exam Head: Present: Atraumatic, Normocephalic Neck: Present: Normal Range of Motion Respiratory/Chest: Present: Clear to Auscultation. No: Wheezes, Rales, Rhonchi Cardiovascular: Present: Regular Rate and Rhythm, Normal S1, S2. No: Murmurs, Rub, Gallop Abdomen: Present: Tenderness, Other (purulent drainage from abdominal wall) Back: Present: Normal Inspection Upper Extremity: Present: Normal Inspection Lower Extremity: Present: Normal Inspection Neurological: Present: GCS=15 Skin: Present: Warm, Dry Psychiatric: Present: Alert, Oriented x 3 Medical Decision Making ED Course and Treatment: 10/21/17 20:08 Patient given 1 dose of oxycodone. Patient was educated on the signs and symptoms of opioid withdrawal and addiction. Patient acknowledged that he could be addicted. Patient stated that he will follow up with his surgeon as scheduled for further management. Disposition/Present on Arrival - Present on Arrival Any Indicators Present on Arrival: No History of DVT/PE: No History of Uncontrolled Diabetes: No Urinary Catheter: No History of Decub. Ulcer: No History Surgical Site Infection Following: None - Disposition Have Diagnosis and Disposition been Completed?: Yes Diagnosis: Chronic abdominal pain, Abdominal fistula, Crohn disease Disposition: HOME/ ROUTINE Disposition Time: 19:34 Patient Plan: Discharge Condition: STABLE Additional Instructions: 1. Follow up with surgeon and GI as scheduled 2. Return to Emergency department if symptoms worsen Referrals: PCP,NO [Primary Care Provider] - Follow up with primary
[2017-10-21] MEDS ORDERED: oxyCODONE 5 mg Immediate Release Tab PO STA (19:50)
[2017-10-21 20:15] VITALS: BP 138/71; PULSE 90; O2SAT 99
[2017-10-21 20:46] VITALS: TEMP 98.2
== END 2017-10-21 20:46 | disposition home or self-care (01) ==
LOC: ED 18:30
DX: G89.29 Other chronic pain (principal); R10.9 Unspecified abdominal pain; K63.2 Fistula of intestine; K50.90 Crohn's disease, unspecified, without complications

== ENCOUNTER 2017-10-25 09:53 | Emergency (ER) | payer MEDICAID ==
[2017-10-25 09:54] VITALS: BMI 17.8
[2017-10-25 10:01] VITALS: BP 119/70; PULSE 73; RESP 18; TEMP 98.4; O2SAT 98
--- NOTE | 2017-10-25 10:06 | ED PDOC ---
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 Patient with multiple visits to the emergency department for similar complaints. Requesting pain medications. Denies any other complaints at this time. Symptom Onset: Sudden Symptom Course: Unchanged Activities at Onset: Rest Context: Home Past Medical History - Provider Review Nursing Documentation Reviewed: Yes - Past History Past History: No Previous - Infectious Disease Hx of Infectious Diseases: None - Tetanus Immunization Tetanus Immunization: Unknown - Cardiac Hx Cardiac Disorders: No - Pulmonary Hx Pneumonia: Yes - Neurological Hx Transient Ischemic Attacks (TIA): No - HEENT Hx HEENT Disorder: No - Renal Hx Renal Disorder: No - Endocrine/Metabolic Hx Endocrine Disorders: No - Hematological/Oncological Hx Anemia: Yes - Integumentary Hx Dermatological Disorder: Yes (RIGHT LOWER BACK FISTULA.DID I&D JANUARY 31 [facility],) Other/Comment: ABDOMINAL WALL ABSCESS. - Musculoskeletal/Rheumatological Hx Musculoskeletal Disorders: No Hx Falls: No - Gastrointestinal Hx Gastrointestinal Disorders: Yes Hx Crohn's Disease: Yes - Genitourinary/Gynecological Hx Genitourinary Disorders: Yes Hx Urinary Tract Infection: Yes - Psychiatric Hx Anxiety: Yes Hx Substance Use: No - Surgical History Other/Comment: Colon resection - Anesthesia Hx Anesthesia: Yes Hx Anesthesia Reactions: No Hx Malignant Hyperthermia: No - Suicidal Assessment Feels Threatened In Home Enviroment: No Family/Social History - Physician Review Nursing Documentation Reviewed: Yes Family/Social History: No Known Family HX Smoking Status: Never Smoked Hx Alcohol Use: No Hx Substance Use: No Hx Substance Use Treatment: No Allergies/Home Meds Allergies/Adverse Reactions: Allergies FISH Allergy (Verified 10/21/17 18:46) RASH ketorolac [From Toradol] Allergy (Verified 10/21/17 18:46) RASH shellfish derived Adverse Reaction (Verified 10/21/17 18:46) ANGIOEDEMA Home Medications: Home Meds Medication Instructions Recorded Confirmed Ramicade IV 10/03/17 Review of Systems - Physician Review All systems were reviewed & negative as marked: Yes - Review of Systems Constitutional: absent: Fevers Gastrointestinal: Abdominal Pain Physical Exam Vital Signs Reviewed: Yes Vital Signs Temp Pulse Resp BP Pulse Ox 10/25/17 09:54 98.4 F 73 18 119/70 98 Temperature: Afebrile Blood Pressure: Normal Pulse: Regular Respiratory Rate: Normal Appearance: Positive for: Well-Appearing, Non-Toxic, Comfortable Pain Distress: None Mental Status: Positive for: Alert and Oriented X 3 - Systems Exam Head: Present: Atraumatic, Normocephalic Pupils: Present: PERRL Extroacular Muscles: Present: EOMI Conjunctiva: Present: Normal Mouth: Present: Moist Mucous Membranes Neck: Present: Normal Range of Motion Respiratory/Chest: Present: Clear to Auscultation, Good Air Exchange. No: Respiratory Distress, Accessory Muscle Use Cardiovascular: Present: Regular Rate and Rhythm, Normal S1, S2. No: Murmurs Abdomen: Present: Normal Bowel Sounds, Other (fistula purulent). No: Tenderness , Distention, Peritoneal Signs Back: Present: Normal Inspection Upper Extremity: Present: Normal Inspection. No: Cyanosis, Edema Lower Extremity: Present: Normal Inspection. No: Edema Neurological: Present: GCS=15, CN II-XII Intact, Speech Normal Skin: Present: Warm, Dry, Normal Color. No: Rashes Psychiatric: Present: Alert, Oriented x 3, Normal Insight, Normal Concentration Medical Decision Making ED Course and Treatment: 10/25/17 10:13 Impression: A 22 year old male with chronic abdominal pain. Plan: -- Reassess and disposition Prior Visits: Notes and results from previous visits were reviewed. Patient was last seen in the emergency department on 10/21/17 for evaluation of abdominal pain, requesting pain medication. Patient has reported 6 visits to the emergency department in the past 24 days, requesting pain medications. Progress Notes: Patient is requesting pain medications. - Scribe Statement The provider has reviewed the documentation as recorded by the James Tripp Provider Scribe Attestation: All medical record entries made by the Scribsherri were at my direction and personally dictated by me. I have reviewed the chart and agree that the record accurately reflects my personal performance of the history, physical exam, medical decision making, and the department course for this patient. I have also personally directed, reviewed, and agree with the discharge instructions and disposition. Disposition/Present on Arrival - Present on Arrival Any Indicators Present on Arrival: No History of DVT/PE: No History of Uncontrolled Diabetes: No Urinary Catheter: No History of Decub. Ulcer: No History Surgical Site Infection Following: None - Disposition Have Diagnosis and Disposition been Completed?: Yes Diagnosis: Crohn disease, Chronic abdominal pain, Abdominal wall fistula, Opioid dependence, Drug-seeking behavior Disposition: HOME/ ROUTINE Disposition Time: 10:11 (LEFT BEFORE COMPLETING CARE) Patient Plan: Discharge, Other Condition: GOOD Discharge Instructions (ExitCare): Opioid Use Disorder Forms: [employer] (Sammarinese)
== END 2017-10-25 10:20 | disposition home or self-care (01) ==
LOC: ED 09:53
DX: K50.90 Crohn's disease, unspecified, without complications (principal); G89.29 Other chronic pain; R10.9 Unspecified abdominal pain; F11.20 Opioid dependence, uncomplicated; K63.2 Fistula of intestine; Z76.5 Malingerer [conscious simulation]

== ENCOUNTER 2017-10-27 17:12 | Emergency (ER) | payer MEDICAID ==
[2017-10-27 17:13] VITALS: BMI 17.8
[2017-10-27 17:29] VITALS: BP 119/66; PULSE 92; RESP 18; TEMP 100.2; O2SAT 97
--- NOTE | 2017-10-27 18:16 | ED PDOC ---
Arrival/HPI - General Chief Complaint: Abnormal Skin Integrity Time Seen by Provider: 10/27/17 17:40 Historian: Patient - History of Present Illness Narrative History of Present Illness (Text): 10/27/17 18:16 This 22 yo male , whose past medical history includes Crohn's Disease, presents to the emergency department complaining of chronic abdominal pain and drainage from chronic fistulas. Patient has multiple visits to the emergency department for similar complaints. Requesting pain medications. Patient admits going to multiple ED facility requesting pain medication. Patient stated he was at [facility] ED in [place] yesterday, and he said he was treated for his chronic abdominal pain with Percocet 10 mg tab. He is requesting Percocet 10 mg tab , "yellow tab", since it worked better for his pain. He stated he just want pain medication to "help me for the night" Time/Duration: Other (see hpi) Context: Home Past Medical History - Provider Review Nursing Documentation Reviewed: Yes - Past History Past History: No Previous - Infectious Disease Hx of Infectious Diseases: None - Tetanus Immunization Tetanus Immunization: Unknown - Cardiac Hx Cardiac Disorders: No - Pulmonary Hx Pneumonia: Yes - Neurological Hx Transient Ischemic Attacks (TIA): No - HEENT Hx HEENT Disorder: No - Renal Hx Renal Disorder: No - Endocrine/Metabolic Hx Endocrine Disorders: No - Hematological/Oncological Hx Anemia: Yes - Integumentary Hx Dermatological Disorder: Yes (RIGHT LOWER BACK FISTULA.DID I&D JANUARY 31 [facility],) Other/Comment: ABDOMINAL WALL ABSCESS. - Musculoskeletal/Rheumatological Hx Musculoskeletal Disorders: No Hx Falls: No - Gastrointestinal Hx Gastrointestinal Disorders: Yes Hx Crohn's Disease: Yes - Genitourinary/Gynecological Hx Genitourinary Disorders: Yes Hx Urinary Tract Infection: Yes - Psychiatric Hx Anxiety: Yes Hx Substance Use: No - Surgical History Other/Comment: Colon resection - Anesthesia Hx Anesthesia: Yes Hx Anesthesia Reactions: No Hx Malignant Hyperthermia: No - Suicidal Assessment Feels Threatened In Home Enviroment: No Family/Social History - Physician Review Nursing Documentation Reviewed: Yes Family/Social History: Other (noncontributory) Smoking Status: Never Smoked Hx Alcohol Use: No Hx Substance Use: No Hx Substance Use Treatment: No Allergies/Home Meds Allergies/Adverse Reactions: Allergies FISH Allergy (Verified 10/21/17 18:46) RASH ketorolac [From Toradol] Allergy (Verified 10/21/17 18:46) RASH shellfish derived Adverse Reaction (Verified 10/21/17 18:46) ANGIOEDEMA Home Medications: Home Meds Medication Instructions Recorded Confirmed Ramicade IV 10/03/17 Review of Systems - Review of Systems Constitutional: Normal. absent: Fatigue, Weight Change, Fevers, Night Sweats Eyes: Normal ENT: Normal. absent: Sore Throat, Rhinorrhea Respiratory: Normal. absent: SOB, Cough Cardiovascular: Normal Gastrointestinal: Abdominal Pain (chronic abdominal pain.), Other (see hpi) Genitourinary Male: Normal. absent: Dysuria, Frequency, Hematuria Musculoskeletal: Normal. absent: Arthralgias, Back Pain, Neck Pain, Myalgias Skin: Normal. absent: Rash Neurological: Normal. absent: Headache, Dizziness, Focal Weakness Endocrine: Normal Hemo/Lymphatic: Normal Psychiatric: Normal Physical Exam Vital Signs Temp Pulse Resp BP Pulse Ox 10/27/17 17:23 100.2 F H 92 H 18 119/66 97 Temperature: Other (low grade fever) Blood Pressure: Normal Pulse: Regular Respiratory Rate: Normal Appearance: Positive for: Well-Appearing, Non-Toxic, Comfortable Pain Distress: None Mental Status: Positive for: Alert and Oriented X 3 - Systems Exam Head: Present: Atraumatic, Normocephalic Pupils: Present: PERRL Extroacular Muscles: Present: EOMI Conjunctiva: Present: Normal Ears: Present: Normal, NORMAL TM, Normal Canal. No: Erythema, TM Bulging, Fluid , TM Perf Mouth: Present: Moist Mucous Membranes Pharnyx: Present: Normal. No: ERYTHEMA, EXUDATE, TONSILS ENLARGED Nose (External): Present: Atraumatic Nose (Internal): Present: Normal Inspection Neck: Present: Normal Range of Motion, Trachea Midline. No: Meningeal Signs, MIDLINE TENDERNESS, Paraspinal Tenderness, Lymphadenopathy Respiratory/Chest: Present: Clear to Auscultation, Good Air Exchange. No: Respiratory Distress, Accessory Muscle Use, Wheezes, Retracting, Rhonchi, Tachypneic Cardiovascular: Present: Regular Rate and Rhythm, Normal S1, S2. No: Murmurs Abdomen: Present: Normal Bowel Sounds, Other (fistula on right anterior and right posterior abdome are not tender. No draiange or cellulitis visualized). No: Tenderness, Distention, Peritoneal Signs, Rebound, Guarding Back: Present: Normal Inspection. No: CVA Tenderness Upper Extremity: Present: Normal Inspection, Normal ROM. No: Cyanosis, Edema Lower Extremity: Present: Normal Inspection, NORMAL PULSES, Normal ROM. No: Edema Neurological: Present: GCS=15, CN II-XII Intact, Speech Normal, Motor Func Grossly Intact, Normal Sensory Function, Normal Cerebellar Funct, Gait Normal Skin: Present: Warm, Dry, Normal Color. No: Rashes, Erythematous, Induration, Hot, Abscess Psychiatric: Present: Alert, Oriented x 3, Normal Insight, Normal Concentration Medical Decision Making ED Course and Treatment: 10/27/17 18:33 Patient is refusing to have blood test. He stated he only expected to have Percocet. He does not longer wants to be in the ED. He wants to [facility] 10/27/17 18:35 Patient is leaving by agreed to sign AMA form. Patient is alert and oriented x 3. Patient was constantly using his cellphone for texting, in no acute distress. Patient has a normal speech, not distress. Patient has a normal gait. Lungs CTA b/l. Abdomen is soft, nt/nd. Fistulas are healing well, no discharge or cellulitis. Leaving Against Medical Advice (AMA): This patient is choosing to leave against medical advice. The EP has personally explained to the pt that choosing to do so may result in permanent bodily harm or . The EP discussed at great length that without further evaluation and monitoring there may be unforeseen circumstances and/or deterioration causing permanent bodily harm or as a result of their choice. The pt verbalized these risks back to the physician in laymans terms. The pt is alert, oriented, and shows the mental capacity to make clear decisions regarding the pts health care at this time. The pt continues to wish to leave against medical advice. In light of the pts decision to leave AMA, follow-up has been recommended and the pt is aware of the importance of following up as instructed. The pt has been advised that they should return to the ED immediately if they change their mind at any time, or if thier condition begins to change or worsen in any way. Re-evaluation Time: 18:36 Reassessment Condition: Re-examined, Unchanged - Medication Orders Current Medication Orders: Discontinued Medications Acetaminophen (Tylenol 325mg Tab) 975 mg PO STAT STA Stop: 10/27/17 18:16 Last Admin: 10/27/17 18:34 Dose: 975 mg MAR Pain/Vitals Document 10/27/17 18:34 HP (Rec: 10/27/17 18:34 HP [id number]) Pain Reassessment Is This A Pain ReAssessment? No Disposition/Present on Arrival - Present on Arrival Any Indicators Present on Arrival: No History of DVT/PE: No History of Uncontrolled Diabetes: No Urinary Catheter: No History of Decub. Ulcer: No History Surgical Site Infection Following: None - Disposition Have Diagnosis and Disposition been Completed?: Yes Diagnosis: Chronic abdominal pain, Drug-seeking behavior Disposition: AGAINST MEDICAL ADVICE Disposition Time: 18:41 Condition: UNKNOWN Additional Instructions: I am sorry you are leaving against medical advise. Return to emergency at anytime, or if symptoms worsen. [facility], [[facility] - Follow up with primary Forms: [email or web address] ([place] Citizen)
== END 2017-10-27 18:40 | disposition left against medical advice (07) ==
LOC: ED 17:12
DX: R10.9 Unspecified abdominal pain (principal); Z76.5 Malingerer [conscious simulation]

== ENCOUNTER 2017-11-02 04:30 | Emergency (ER) | payer MEDICAID ==
[2017-11-02 04:32] VITALS: BMI 17.8
--- NOTE | 2017-11-02 04:47 | ED PDOC ---
Arrival/HPI - General Time Seen by Provider: 11/02/17 04:32 Historian: Patient - History of Present Illness Narrative History of Present Illness (Text): 11/02/17 04:47 Ramirez Beavers is a 22 year old male, whose past medical history includes Crohn's disease on Remicade infusions, multiple intestino-cutaneous fistulae, chronic abdominal abscess, and opiate dependence, who presents to the Emergency department complaining of right-sided abdominal pain tonight. Patient reports abdominal pain is chronic, and notes he recently had his Remicade infusion but he will not see his surgeon until tomorrow. Patient requesting pain and anxiety medication. Patient denies any fever, chills, chest pain, shortness of breath, nausea, vomiting, neck pain, headache, dizziness, or any other complaints. Symptom Onset: Gradual Symptom Course: Unchanged Activities at Onset: Light Context: Home Past Medical History - Provider Review Nursing Documentation Reviewed: Yes - Past History Past History: No Previous - Infectious Disease Hx of Infectious Diseases: None - Tetanus Immunization Tetanus Immunization: Unknown - Cardiac Hx Cardiac Disorders: No - Pulmonary Hx Pneumonia: Yes - Neurological Hx Transient Ischemic Attacks (TIA): No - HEENT Hx HEENT Disorder: No - Renal Hx Renal Disorder: No - Endocrine/Metabolic Hx Endocrine Disorders: No - Hematological/Oncological Hx Anemia: Yes - Integumentary Hx Dermatological Disorder: Yes (RIGHT LOWER BACK FISTULA.DID I&D JANUARY 31 [facility],) Other/Comment: ABDOMINAL WALL ABSCESS. - Musculoskeletal/Rheumatological Hx Musculoskeletal Disorders: No Hx Falls: No - Gastrointestinal Hx Gastrointestinal Disorders: Yes Hx Crohn's Disease: Yes - Genitourinary/Gynecological Hx Genitourinary Disorders: Yes Hx Urinary Tract Infection: Yes - Psychiatric Hx Anxiety: Yes Hx Substance Use: No - Surgical History Other/Comment: Colon resection - Anesthesia Hx Anesthesia: Yes Hx Anesthesia Reactions: No Hx Malignant Hyperthermia: No - Suicidal Assessment Feels Threatened In Home Enviroment: No Family/Social History - Physician Review Nursing Documentation Reviewed: Yes Family/Social History: Unknown Family HX Smoking Status: Never Smoked Hx Alcohol Use: No Hx Substance Use: No Hx Substance Use Treatment: No Allergies/Home Meds Allergies/Adverse Reactions: Allergies FISH Allergy (Verified 11/02/17 04:42) RASH ketorolac [From Toradol] Allergy (Verified 11/02/17 04:42) RASH shellfish derived Adverse Reaction (Verified 11/02/17 04:42) ANGIOEDEMA Home Medications: Home Meds Medication Instructions Recorded Confirmed Ramicade IV Q30D 10/03/17 Review of Systems - Physician Review All systems were reviewed & negative as marked: Yes - Review of Systems Constitutional: Normal. absent: Fevers Eyes: Normal ENT: Normal Respiratory: Normal. absent: SOB, Cough Cardiovascular: Normal. absent: Chest Pain Gastrointestinal: Abdominal Pain. absent: Diarrhea, Nausea, Vomiting Genitourinary Male: Normal. absent: Dysuria, Frequency, Hematuria, Urinary Output Changes Musculoskeletal: Normal. absent: Back Pain, Neck Pain Skin: Normal. absent: Rash Neurological: Normal. absent: Headache, Dizziness Endocrine: Normal Hemo/Lymphatic: Normal Psychiatric: Normal Physical Exam Vital Signs Reviewed: Yes Vital Signs Temp Pulse Resp BP Pulse Ox 11/02/17 04:44 98.0 F 76 18 106/48 L 96 Temperature: Afebrile Blood Pressure: Normal Pulse: Regular Respiratory Rate: Normal Appearance: Positive for: Well-Appearing, Non-Toxic, Comfortable Pain Distress: None Mental Status: Positive for: Alert and Oriented X 3 - Systems Exam Head: Present: Atraumatic, Normocephalic Pupils: Present: PERRL Extroacular Muscles: Present: EOMI Conjunctiva: Present: Normal Mouth: Present: Moist Mucous Membranes Neck: Present: Normal Range of Motion Respiratory/Chest: Present: Clear to Auscultation, Good Air Exchange. No: Respiratory Distress, Accessory Muscle Use Cardiovascular: Present: Regular Rate and Rhythm, Normal S1, S2. No: Murmurs Abdomen: Present: Normal Bowel Sounds. No: Tenderness, Distention, Peritoneal Signs Back: Present: Normal Inspection Upper Extremity: Present: Normal Inspection. No: Cyanosis, Edema Lower Extremity: Present: Normal Inspection. No: Edema Neurological: Present: GCS=15, CN II-XII Intact, Speech Normal Skin: Present: Warm, Dry, Normal Color. No: Rashes Psychiatric: Present: Alert, Oriented x 3, Normal Insight, Normal Concentration Medical Decision Making ED Course and Treatment: 11/02/17 04:47 Impression: 22 year old male brought in for chronic abdominal pain, requesting pain and anxiety medications. Plan: -- Reassess and disposition Prior Visits: Notes and results from previous visits were reviewed. Progress Notes: [place] [facility] reviewed, pt received 50 tablets/17 day supply of Oxycodone on 2017 and 7 tablets of Alprazolam on 10/24/2017. - Medication Orders Current Medication Orders: Discontinued Medications Acetaminophen (Tylenol 325mg Tab) 650 mg PO STAT STA Stop: 11/02/17 05:19 Last Admin: 11/02/17 05:26 Dose: 650 mg - Scribe Statement The provider has reviewed the documentation as recorded by the Aminahibsherri Herrera All medical record entries made by the Aminahibsherri were at my direction and personally dictated by me. I have reviewed the chart and agree that the record accurately reflects my personal performance of the history, physical exam, medical decision making, and the department course for this patient. I have also personally directed, reviewed, and agree with the discharge instructions and disposition. Disposition/Present on Arrival - Present on Arrival Any Indicators Present on Arrival: No History of DVT/PE: No History of Uncontrolled Diabetes: No Urinary Catheter: No History Surgical Site Infection Following: None - Disposition Have Diagnosis and Disposition been Completed?: Yes Diagnosis: Abdominal pain Disposition: HOME/ ROUTINE Disposition Time: 05:25 Condition: GOOD Discharge Instructions (ExitCare): Chronic Pain (DC) Forms: [facility] (Portuguese)
[2017-11-02 04:49] VITALS: BP 106/48; PULSE 76; RESP 18; TEMP 98; O2SAT 96
== END 2017-11-02 05:26 | disposition home or self-care (01) ==
LOC: ED 04:30
DX: R10.9 Unspecified abdominal pain (principal)

== ENCOUNTER 2017-11-06 08:58 | Emergency (ER) | payer MEDICAID ==
[2017-11-06 08:58] VITALS: BMI 17.8
[2017-11-06 09:07] VITALS: BP 132/87; PULSE 90; RESP 18; TEMP 98.1; O2SAT 100
--- NOTE | 2017-11-06 09:53 | ED PDOC ---
Arrival/HPI - General Chief Complaint: Pain, Chronic Time Seen by Provider: 11/06/17 09:38 Historian: Patient - History of Present Illness Narrative History of Present Illness (Text): 11/06/17 09:53 22 year old male, whose past medical history includes Crohn's disease on Remicade infusions, multiple intestino-cutaneous fistulae, chronic abdominal abscess, and opiate dependence, who presents to the Emergency department complaining of chronic abdominal pain and body aches that began this morning. Patient states he ran out of his pain medication 2 days ago, but has an appointment with his surgeon Dr. Cardoso on 11/08/17. Patient denies any fever, chills, chest pain, shortness of breath, nausea, vomiting, diarrhea, urinary symptoms, back pain, neck pain, headache, dizziness, or any other complaints. Time/Duration: Other (this morning ) Symptom Onset: Sudden Symptom Course: Unchanged Activities at Onset: Light Context: Home Past Medical History - Provider Review Nursing Documentation Reviewed: Yes - Past History Past History: No Previous - Infectious Disease Hx of Infectious Diseases: None - Tetanus Immunization Tetanus Immunization: Unknown - Cardiac Hx Cardiac Disorders: No - Pulmonary Hx Respiratory Disorders: Yes Hx Pneumonia: Yes - Neurological Hx Transient Ischemic Attacks (TIA): No - HEENT Hx HEENT Disorder: No - Renal Hx Renal Disorder: No - Endocrine/Metabolic Hx Endocrine Disorders: No - Hematological/Oncological Hx Blood Disorders: Yes Hx Anemia: Yes - Integumentary Hx Dermatological Disorder: Yes Other/Comment: ABDOMINAL WALL ABSCESS. - Musculoskeletal/Rheumatological Hx Musculoskeletal Disorders: No Hx Falls: No - Gastrointestinal Hx Gastrointestinal Disorders: Yes Hx Crohn's Disease: Yes - Genitourinary/Gynecological Hx Genitourinary Disorders: Yes Hx Urinary Tract Infection: Yes - Psychiatric Hx Psychophysiologic Disorder: Yes Hx Anxiety: Yes Hx Substance Use: No - Surgical History Other/Comment: Colon resection - Anesthesia Hx Anesthesia: Yes Hx Anesthesia Reactions: No Hx Malignant Hyperthermia: No - Suicidal Assessment Feels Threatened In Home Enviroment: No Family/Social History - Physician Review Nursing Documentation Reviewed: Yes Family/Social History: No Known Family HX Smoking Status: Never Smoked Hx Alcohol Use: No Hx Substance Use: No Hx Substance Use Treatment: No Allergies/Home Meds Allergies/Adverse Reactions: Allergies FISH Allergy (Verified 11/06/17 09:17) RASH ketorolac [From Toradol] Allergy (Verified 11/06/17 09:17) RASH shellfish derived Adverse Reaction (Verified 11/06/17 09:17) ANGIOEDEMA Home Medications: Home Meds Medication Instructions Recorded Confirmed Ramicade IV Q30D 10/03/17 Review of Systems - Review of Systems Constitutional: absent: Fevers, Other (Chills) Respiratory: absent: SOB Cardiovascular: absent: Chest Pain Gastrointestinal: Abdominal Pain. absent: Diarrhea, Nausea, Vomiting Genitourinary Male: absent: Dysuria, Frequency, Hematuria Musculoskeletal: Arthralgias. absent: Back Pain, Neck Pain Neurological: absent: Headache, Dizziness Physical Exam Vital Signs Reviewed: Yes Vital Signs Temp Pulse Resp BP Pulse Ox 11/06/17 09:05 98.1 F 90 18 132/87 100 Temperature: Afebrile Blood Pressure: Normal Pulse: Regular Respiratory Rate: Normal Appearance: Positive for: Well-Appearing, Non-Toxic, Comfortable Pain Distress: None Mental Status: Positive for: Alert and Oriented X 3 - Systems Exam Head: Present: Atraumatic, Normocephalic Pupils: Present: PERRL Extroacular Muscles: Present: EOMI Conjunctiva: Present: Normal Mouth: Present: Moist Mucous Membranes Neck: Present: Normal Range of Motion Respiratory/Chest: Present: Clear to Auscultation, Good Air Exchange. No: Respiratory Distress, Accessory Muscle Use Cardiovascular: Present: Regular Rate and Rhythm, Normal S1, S2. No: Murmurs Abdomen: Present: Normal Bowel Sounds, Scars (Surgical scars ). No: Tenderness , Distention, Peritoneal Signs Back: Present: Normal Inspection Upper Extremity: Present: Normal Inspection. No: Cyanosis, Edema Lower Extremity: Present: Normal Inspection. No: Edema Neurological: Present: GCS=15, CN II-XII Intact, Speech Normal Skin: Present: Warm, Dry, Normal Color. No: Rashes Psychiatric: Present: Alert, Oriented x 3, Normal Insight, Normal Concentration Medical Decision Making ED Course and Treatment: 11/06/17 09:53 Impression: 22 year old male presents complaining of chronic abdominal pain, requesting pain medications Plan: -- Percocet -- Reassess and disposition Prior Visits: Notes and results from previous visits were reviewed. Patient was last seen in the emergency department on 11/02/17 for chronical abdominal pain tonight. Requested pain and anxiety medication. Patient as discharged. Progress Notes: 11/06/17 09:58 On re-evaluation, patient feels better and is in no acute distress. I have discussed the results and plan with the patient, who expresses understanding. Patient in agreement with plan to be discharged home. Patient is stable for discharge. Patient was instructed to follow up with physician or return if symptoms worsen or new concerning symptoms arise. - Medication Orders Current Medication Orders: Discontinued Medications Oxycodone/Acetaminophen (Percocet 5/325 Mg Tab) 2 tab PO STAT STA Stop: 11/06/17 09:55 Last Admin: 11/06/17 10:02 Dose: 2 tab MAR Pain Assessment Document 11/06/17 10:02 EQ (Rec: 11/06/17 10:02 EQ [id number]) Pain Reassessment Is this a pain reassessment? No Sleep Is patient sleeping during reassessment? No Presence of Pain Presence of Pain Yes - Scribe Statement The provider has reviewed the documentation as recorded by the Aminahibsherri Guillen Provider Scribe Attestation: All medical record entries made by the Aminahibsherri were at my direction and personally dictated by me. I have reviewed the chart and agree that the record accurately reflects my personal performance of the history, physical exam, medical decision making, and the department course for this patient. I have also personally directed, reviewed, and agree with the discharge instructions and disposition. Disposition/Present on Arrival - Present on Arrival Any Indicators Present on Arrival: No History of DVT/PE: No History of Uncontrolled Diabetes: No Urinary Catheter: No History of Decub. Ulcer: No History Surgical Site Infection Following: None - Disposition Have Diagnosis and Disposition been Completed?: Yes Diagnosis: Chronic abdominal pain Disposition: HOME/ ROUTINE Disposition Time: 09:05 Condition: GOOD Discharge Instructions (ExitCare): Chronic Pain (DC) Additional Instructions: Thank you for letting us take care of you today. The emergency medical care you received today was directed at your acute symptoms. If you were prescribed any medication, please fill it and take as directed. It may take several days for your symptoms to resolve. Return to the Emergency Department if your symptoms worsen, do not improve, or if you have any other problems. Please contact your doctor or call one of the physicians/clinics you have been referred to that are listed on the Patient Visit Information form that is included in your discharge packet. Bring any paperwork you were given at discharge with you along with any medications you are taking to your follow up visit. Our treatment cannot replace ongoing medical care by a primary care provider (PCP) outside of the emergency department. Thank you for allowing the [facility] team to be part of your care today. Follow up with your surgeon for your chronic pain medication and further management. Referrals: [facility], [Non-Staff] - Follow up with primary Forms: [employer] (Slovak)
[2017-11-06] MEDS ORDERED: Oxycodone/Acetaminophen 5/325 mg Tab PO STA (09:54)
== END 2017-11-06 10:06 | disposition home or self-care (01) ==
LOC: ED 08:58
DX: G89.29 Other chronic pain (principal); R10.9 Unspecified abdominal pain

== ENCOUNTER 2017-11-26 10:24 | Emergency (ER) | payer MEDICAID ==
[2017-11-26 10:29] VITALS: BMI 18.1
[2017-11-26 10:39] VITALS: TEMP 97.6
--- NOTE | 2017-11-26 11:19 | ED PDOC ---
Arrival/HPI - General Chief Complaint: Abdominal Pain Time Seen by Provider: 11/26/17 10:31 Historian: Patient - History of Present Illness Narrative History of Present Illness (Text): 11/26/17 11:13 Pt is a 22 year old male with a PMH of opioid abuse and crohns with open fistula , BIBA presents to the ED c/o chest pain and backaches and coughing for the past 6 days. Last visit to his surgeon of prescribed opioids was 11/22/17. Pt says his next appt is tomorrow but needs his more medication as he has been out since Monday. Denies shortness of breath, nausea, vomiting or diarrhea, fever, chills or GIB. Normal BM and urine. Time/Duration: < week Symptom Onset: Gradual Symptom Course: Unchanged Quality: Aching, Pressure Severity Level: Moderate Context: Home Past Medical History - Provider Review Nursing Documentation Reviewed: Yes - Travel History Have you recently traveled outside [place] w/in the past 3 mons?: No - Past History Past History: No Previous - Infectious Disease Hx of Infectious Diseases: None - Tetanus Immunization Tetanus Immunization: Unknown - Cardiac Hx Cardiac Disorders: No - Pulmonary Hx Respiratory Disorders: Yes Hx Pneumonia: Yes - Neurological Hx Neurological Disorder: No - HEENT Hx HEENT Disorder: No - Renal Hx Renal Disorder: No - Endocrine/Metabolic Hx Endocrine Disorders: No - Hematological/Oncological Hx Blood Disorders: Yes Hx Anemia: Yes - Integumentary Hx Dermatological Disorder: Yes Other/Comment: ABDOMINAL WALL ABSCESS. - Musculoskeletal/Rheumatological Hx Musculoskeletal Disorders: No - Gastrointestinal Hx Gastrointestinal Disorders: Yes Hx Crohn's Disease: Yes - Genitourinary/Gynecological Hx Genitourinary Disorders: Yes Hx Urinary Tract Infection: Yes - Psychiatric Hx Psychophysiologic Disorder: Yes Hx Anxiety: Yes Hx Substance Use: No - Surgical History Other/Comment: Colon resection - Anesthesia Hx Anesthesia: Yes Hx Anesthesia Reactions: No Hx Malignant Hyperthermia: No - Suicidal Assessment Feels Threatened In Home Enviroment: No Family/Social History - Physician Review Nursing Documentation Reviewed: Yes Family/Social History: Unknown Family HX Smoking Status: Never Smoked Hx Alcohol Use: No Hx Substance Use: No Hx Substance Use Treatment: No Allergies/Home Meds Allergies/Adverse Reactions: Allergies FISH Allergy (Verified 11/26/17 10:31) RASH ketorolac [From Toradol] Allergy (Verified 11/26/17 10:31) RASH shellfish derived Adverse Reaction (Verified 11/26/17 10:31) ANGIOEDEMA Review of Systems - Physician Review All systems were reviewed & negative as marked: Yes - Review of Systems Constitutional: Normal Eyes: Normal ENT: Normal Respiratory: Normal Cardiovascular: Normal Gastrointestinal: Abdominal Pain Genitourinary Male: Normal Musculoskeletal: Back Pain Skin: Normal Neurological: Normal Endocrine: Normal Hemo/Lymphatic: Normal Psychiatric: Normal Physical Exam Vital Signs Reviewed: Yes Vital Signs Temp Pulse Resp BP Pulse Ox 11/26/17 13:09 97.6 F 72 18 120/75 100 11/26/17 10:38 97.6 F 67 17 116/67 99 Temperature: Afebrile Blood Pressure: Normal Pulse: Regular Respiratory Rate: Normal Appearance: Positive for: Well-Appearing, Non-Toxic, Comfortable Pain Distress: Mild Mental Status: Positive for: Alert and Oriented X 3 - Systems Exam Head: Present: Atraumatic, Normocephalic Pupils: Present: PERRL Extroacular Muscles: Present: EOMI Conjunctiva: Present: Normal Mouth: Present: Moist Mucous Membranes Neck: Present: Normal Range of Motion Respiratory/Chest: Present: Clear to Auscultation, Good Air Exchange. No: Respiratory Distress, Accessory Muscle Use, Wheezes, Decreased Breath Sounds, Rales, Retracting, Rhonchi, Tachypneic, Tender to Palpation, Other Cardiovascular: Present: Regular Rate and Rhythm, Normal S1, S2. No: Murmurs Abdomen: Present: Normal Bowel Sounds, Ostomy Tubes (fistula periumbilical, clean, non-erythematous). No: Tenderness, Distention, Peritoneal Signs, Rebound , Guarding, McBurney's Point Tender, Rovsing's Sign Present, Hernias, Feeding Tubes, Mass/Organomegaly, Scars, Other Rectal: No: Occult Blood, Rectal Tenderness, Gross Blood, Melena, Hemorrhoids, Normal Rectal Tone, Fissures, Nodule/Mass/Lesions, Other Back: Present: Normal Inspection Upper Extremity: Present: Normal Inspection, Normal ROM, NORMAL PULSES. No: Cyanosis, Edema Lower Extremity: Present: Normal Inspection, NORMAL PULSES, Normal ROM. No: Edema Neurological: Present: GCS=15, CN II-XII Intact, Speech Normal Skin: Present: Warm, Dry, Normal Color. No: Rashes Psychiatric: Present: Alert, Oriented x 3, Normal Insight, Normal Concentration Medical Decision Making ED Course and Treatment: 11/26/17 11:19 Impression Pt is a 22 year old male with a PMH of opioid abuse and crohns with open fistula , who presents to the ED c/o chest pain and backache and coughing for the past 6 days. Pt is well known to the ED for drug-seeking and malingering behaviour; last Percocet Rx prescribed 11/22/17 x 20 tabs and Xanax. Abdom fistula clean wtih no signs of purulent dc, blood, erythema, no point tenderness of the abdomen, chest pain can be reproduced via palpation; BP and HR wnl, Plan Discuss w pt need to see surgeon tomorrow for f/u ecg and cariac iso assess and dispo Progress Note ECG reveals sinus rickie with a rte of 57; cardiac enzymes WNL Pt continues to ask for percocet for body pain, when denied, he asks for alprazolam for his pain; pt observed to be very comfortable while talking on his phone and texting Receives Remicade IV infusion q8wks for Crohn's, next dose at end of December; scheduled to see his surgeon tomorrow Discussed ecg and labs wtih patient; refuses to take acetaminophen because he ' doesn't like it', will not accept Toradol inj as well; only wants Xanax or percocet; pt informed that he will not receive controlled meds here in the ED; needs to see surgeon or pain specialist Pt endorses receiving Percocet recently but said he had to take more than the scheduled daily dose during the recent snowstorm. Pt was given choice to receive Toradol IM or wait to get percocet from his doctor tomorrow VSS and pt ambulated well out of the ED 11/27/17 11:00 - Lab Interpretations Lab Results: Lab Results 11/26/17 12:30: Lactate Dehydrogenase 523, Total Creatine Kinase 105, Troponin I < 0.01 I have reviewed the lab results: Yes Interpretation: All labs normal - EKG Interpretation Interpreted by ED Physician: Yes (Sinus dmitri Rate 57) - Medication Orders Current Medication Orders: Discontinued Medications Acetaminophen (Tylenol 325mg Tab) 650 mg PO STAT STA Stop: 11/26/17 11:26 Last Admin: 11/26/17 11:43 Dose: Not Given Non-Admin Reason: Patient Refused Disposition/Present on Arrival - Present on Arrival Any Indicators Present on Arrival: Yes History of DVT/PE: No History of Uncontrolled Diabetes: No Urinary Catheter: No History of Decub. Ulcer: No History Surgical Site Infection Following: None - Disposition Have Diagnosis and Disposition been Completed?: Yes Diagnosis: Chest pain, Chronic pain, Abdominal fistula, Opioid abuse Disposition: HOME/ ROUTINE Disposition Time: 13:43 Patient Plan: Discharge Condition: GOOD Discharge Instructions (ExitCare): Chest Pain That Is Not Caused by the Heart ( DC), Chronic Pain (DC), Chest Pain (ED) Additional Instructions: Dear Ramirez Thank you for letting us take care of you today. The emergency medical care you received today was directed at your acute symptoms. If you were prescribed any medication, please fill it and take as directed. It may take several days for your symptoms to resolve. Return to the Emergency Department if your symptoms worsen, do not improve, or if you have any other problems. Please contact your doctor or call one of the physicians/clinics you have been referred to that are listed on the Patient Visit Information form that is included in your discharge packet. Bring any paperwork you were given at discharge with you along with any medications you are taking to your follow up visit. Our treatment cannot replace ongoing medical care by a primary care provider (PCP) outside of the emergency department. Thank you for allowing the [facility] [employer] team to be part of your care today. Prescriptions: Acetaminophen [Acetaminophen Extra Strength] 500 mg PO Q6 #20 tablet Referrals: [facility] Esteban Oneil, [Non-Staff] - Follow up with primary Forms: [employer] (Sinhala)
[2017-11-26 13:10] VITALS: BP 120/75; PULSE 72; RESP 18; O2SAT 100
[2017-11-26 13:17] LABS: TROPONIN I < 0.01 ng/mL
--- NOTE | 2017-11-26 23:16 | CARD ---
APPROVED REPORT EKG Measurement Heart [id number] <Conclusion> Sinus bradycardia Early repolarization Otherwise normal ECG
== END 2017-11-26 14:04 | disposition home or self-care (01) ==
LOC: ED 10:24
DX: R07.9 Chest pain, unspecified (principal); G89.29 Other chronic pain; K63.2 Fistula of intestine; F11.10 Opioid abuse, uncomplicated

== ENCOUNTER 2017-12-11 15:33 | Emergency (ER) | payer MEDICAID ==
[2017-12-11 15:33] VITALS: BMI 18.1
[2017-12-11 15:53] VITALS: BP 135/91; PULSE 87; RESP 20; TEMP 97.8; O2SAT 98
== END 2017-12-11 16:08 | disposition left against medical advice (07) ==
LOC: ED 15:33
DX: Z02.89 Encounter for other administrative examinations (principal); F10.10 Alcohol abuse, uncomplicated

== ENCOUNTER 2017-12-18 14:01 | Emergency (ER) | payer MEDICAID ==
[2017-12-18 14:04] VITALS: BMI 18.1
[2017-12-18 14:27] VITALS: BP 110/65; PULSE 71; RESP 18; TEMP 98.5; O2SAT 100
--- NOTE | 2017-12-18 14:55 | ED PDOC ---
Arrival/HPI - General Chief Complaint: GI Problem Time Seen by Provider: 12/18/17 14:36 - History of Present Illness Narrative History of Present Illness (Text): 12/18/17 14:53 22 yo male, hx of IBD, chronic pain, presents with chronic abdominal pain and "not feeling himself". pt well known to er for drug seeking behavior. pt seen in er in [place]. pt denies any fevers, diarrhea. pt upon assessment is immediately requesting narcotic pain medcation, refusing labs. advise pt of narcotic pain policy and pt immediately elopes Past Medical History - Past History Past History: No Previous - Infectious Disease Hx of Infectious Diseases: None - Tetanus Immunization Tetanus Immunization: Unknown - Cardiac Hx Cardiac Disorders: No - Pulmonary Hx Respiratory Disorders: Yes Hx Pneumonia: Yes - Neurological Hx Neurological Disorder: No - HEENT Hx HEENT Disorder: No - Renal Hx Renal Disorder: No - Endocrine/Metabolic Hx Endocrine Disorders: No - Hematological/Oncological Hx Blood Disorders: Yes Hx Anemia: Yes - Integumentary Hx Dermatological Disorder: Yes Other/Comment: ABDOMINAL WALL ABSCESS. - Musculoskeletal/Rheumatological Hx Musculoskeletal Disorders: No - Gastrointestinal Hx Gastrointestinal Disorders: Yes Hx Crohn's Disease: Yes - Genitourinary/Gynecological Hx Genitourinary Disorders: Yes Hx Urinary Tract Infection: Yes - Psychiatric Hx Psychophysiologic Disorder: Yes Hx Anxiety: Yes Hx Substance Use: No - Surgical History Other/Comment: Colon resection - Anesthesia Hx Anesthesia: Yes Hx Anesthesia Reactions: No Hx Malignant Hyperthermia: No - Suicidal Assessment Feels Threatened In Home Enviroment: No Family/Social History Family/Social History: Unknown Family HX Smoking Status: Never Smoked Hx Alcohol Use: No Hx Substance Use: No Hx Substance Use Treatment: No Allergies/Home Meds Allergies/Adverse Reactions: Allergies FISH Allergy (Verified 11/26/17 10:31) RASH ketorolac [From Toradol] Allergy (Verified 11/26/17 10:31) RASH shellfish derived Adverse Reaction (Verified 11/26/17 10:31) ANGIOEDEMA Home Medications: Home Meds Medication Instructions Recorded Confirmed No Known Home Med 12/18/17 12/18/17 Review of Systems - Review of Systems Constitutional: Normal Eyes: Normal ENT: Normal Respiratory: Normal Cardiovascular: Normal Gastrointestinal: Abdominal Pain Genitourinary Male: Normal Musculoskeletal: Normal Skin: Normal Neurological: Normal Endocrine: Normal Hemo/Lymphatic: Normal Psychiatric: Normal Physical Exam Vital Signs Temp Pulse Resp BP Pulse Ox 12/18/17 14:26 98.5 F 71 18 110/65 100 Temperature: Afebrile Blood Pressure: Normal Pulse: Regular Respiratory Rate: Normal Appearance: Positive for: Well-Appearing, Non-Toxic, Comfortable Pain Distress: None Mental Status: Positive for: Alert and Oriented X 3 - Systems Exam Head: Present: Atraumatic, Normocephalic Pupils: Present: PERRL Extroacular Muscles: Present: EOMI Conjunctiva: Present: Normal Mouth: Present: Moist Mucous Membranes Neck: Present: Normal Range of Motion Respiratory/Chest: Present: Clear to Auscultation, Good Air Exchange. No: Respiratory Distress, Accessory Muscle Use Cardiovascular: Present: Regular Rate and Rhythm, Normal S1, S2. No: Murmurs Abdomen: Present: Other (fistula no surrouding ertyehma drainage). No: Tenderness, Distention, Peritoneal Signs, Rebound, Guarding Back: Present: Normal Inspection Upper Extremity: Present: Normal Inspection. No: Cyanosis, Edema Lower Extremity: Present: Normal Inspection. No: Edema Neurological: Present: GCS=15, CN II-XII Intact, Speech Normal Skin: Present: Warm, Dry, Normal Color. No: Rashes Psychiatric: Present: Alert, Oriented x 3, Normal Insight, Normal Concentration Medical Decision Making ED Course and Treatment: 12/18/17 14:54 suspect drug seeking behavior. pt eloped immediately after my assessment. offered labs and imaging, however pt elopes - Medication Orders Current Medication Orders: Discontinued Medications Acetaminophen (Tylenol 325mg Tab) 650 mg PO STAT STA Stop: 12/18/17 14:51 Disposition/Present on Arrival - Present on Arrival Any Indicators Present on Arrival: No History of DVT/PE: No History of Uncontrolled Diabetes: No Urinary Catheter: No History of Decub. Ulcer: No History Surgical Site Infection Following: None - Disposition Have Diagnosis and Disposition been Completed?: Yes Diagnosis: Abdominal pain, Chronic pain Disposition: ELOPEMENT - ER ONLY Disposition Time: 14:55 Patient Problems: Current Active Problems Problem Status Onset Abdominal pain Acute Chronic pain Acute Condition: STABLE Referrals: PCP,NO [Primary Care Provider] - Follow up with primary Forms: [employer] (Lithuanian)
== END 2017-12-18 14:45 | disposition left against medical advice (07) ==
LOC: ED 14:01
DX: G89.29 Other chronic pain (principal); R10.9 Unspecified abdominal pain

== ENCOUNTER 2017-12-23 05:46 | Emergency (ER) | payer MEDICAID ==
[2017-12-23 05:47] VITALS: BMI 18.1
[2017-12-23 06:30] VITALS: BP 129/62; PULSE 91; RESP 16; TEMP 98.5; O2SAT 98
--- NOTE | 2017-12-23 08:02 | ED PDOC ---
Arrival/HPI - General Chief Complaint: Abdominal Pain Time Seen by Provider: 12/23/17 07:44 Historian: Patient - History of Present Illness Narrative History of Present Illness (Text): 12/23/17 07:59 A 22 year old male, whose past medical history includes lower back pain and chronic abdominal pain, ulcerative colitis, presents to the emergency department for persistent abdominal pain. The patient notes that he has had similar discomfort in the past and that he ran out of percocet and is asking for 2 percocet for the pain. When asking the patient why he does not go to his primary to help manage his pain, the patient states that he is currently waiting for a referral and will most likely only be seen until Monday. The patient has present similar symptoms/excuses in the past. When offered Tylenol/ ibuprofen/Advil, the patient refused these medications and states he can take percocet/oxycodone/vicodin. When telling the patient that he will not be prescribed opioids, he became belligerent and argumentative. The patients denies any fever, chills, sweats, nausea, headaches, vomiting, diarrhea, urinary changes, or any other complaints at this time. pt is here for further eval pt's without other complaints pt received his primary wound care/abdominal pain care at [facility] Time/Duration: 1-3 hours, Other (chronic abd pain) Symptom Onset: Gradual Symptom Course: Unchanged Quality: Other Severity Level: Mild Activities at Onset: Light Context: Home Past Medical History - Provider Review Nursing Documentation Reviewed: Yes - Travel History Have you recently traveled outside [place] w/in the past 3 mons?: No - Past History Past History: No Previous - Infectious Disease Hx of Infectious Diseases: None - Tetanus Immunization Tetanus Immunization: Unknown - Cardiac Hx Cardiac Disorders: No - Pulmonary Hx Pneumonia: Yes - Neurological Hx Transient Ischemic Attacks (TIA): No - HEENT Hx HEENT Disorder: No - Renal Hx Renal Disorder: No - Endocrine/Metabolic Hx Endocrine Disorders: No - Hematological/Oncological Hx Anemia: Yes - Integumentary Hx Dermatological Disorder: Yes Other/Comment: ABDOMINAL WALL ABSCESS. - Musculoskeletal/Rheumatological Hx Musculoskeletal Disorders: No - Gastrointestinal Hx Crohn's Disease: Yes - Genitourinary/Gynecological Hx Genitourinary Disorders: Yes Hx Urinary Tract Infection: Yes - Psychiatric Hx Anxiety: Yes Hx Substance Use: No - Surgical History Other/Comment: Colon resection. PT STATES "I'VE HAD MULTIPLE SURGERIES IN MY STOMACH" - Anesthesia Hx Anesthesia: Yes Hx Anesthesia Reactions: No Hx Malignant Hyperthermia: No - Suicidal Assessment Feels Threatened In Home Enviroment: No Family/Social History - Physician Review Nursing Documentation Reviewed: Yes Family/Social History: No Known Family HX Smoking Status: Never Smoked Hx Alcohol Use: No Hx Substance Use: No Hx Substance Use Treatment: No Allergies/Home Meds Allergies/Adverse Reactions: Allergies FISH Allergy (Verified 12/23/17 05:53) RASH ketorolac [From Toradol] Allergy (Verified 12/23/17 05:53) RASH shellfish derived Adverse Reaction (Verified 12/23/17 05:53) ANGIOEDEMA Home Medications: Home Meds Medication Instructions Recorded Confirmed Remicade 12/20/17 Review of Systems - Physician Review All systems were reviewed & negative as marked: Yes - Review of Systems Constitutional: absent: Fevers, Night Sweats Eyes: Normal ENT: Normal Respiratory: Normal Cardiovascular: Normal Gastrointestinal: Abdominal Pain. absent: Diarrhea, Nausea, Vomiting Genitourinary Male: Normal. absent: Urinary Output Changes Musculoskeletal: Normal Skin: Normal Neurological: absent: Headache Endocrine: Normal Hemo/Lymphatic: Normal Psychiatric: Normal Physical Exam Vital Signs Reviewed: Yes Vital Signs Temp Pulse Resp BP Pulse Ox 12/23/17 06:15 98.5 F 91 H 16 129/62 98 Temperature: Afebrile Blood Pressure: Normal Pulse: Regular Respiratory Rate: Normal Appearance: Positive for: Well-Appearing, Non-Toxic, Other (appearing comfortable prior to my evaluation, alert/awake, GCS = 15, oriented x 3) Pain Distress: None Mental Status: Positive for: Alert and Oriented X 3 - Systems Exam Head: Present: Atraumatic, Normocephalic Pupils: Present: PERRL, Other (no nystagmus, no photophobia, sclera anicteric) Extroacular Muscles: Present: EOMI Conjunctiva: Present: Normal Ears: Present: Normal Mouth: Present: Moist Mucous Membranes, Normal Teeth Pharnyx: Present: Normal Nose (External): Present: Atraumatic Nose (Internal): Present: Normal Inspection Neck: Present: Normal Range of Motion, Trachea Midline. No: MIDLINE TENDERNESS Respiratory/Chest: Present: Clear to Auscultation, Good Air Exchange, Other ( CTA b/l, no w/r/r). No: Respiratory Distress, Accessory Muscle Use Cardiovascular: Present: Regular Rate and Rhythm, Normal S1, S2. No: Murmurs Abdomen: Present: Normal Bowel Sounds, Other (noted similiar mid abd post surg scaring, well healed wound; noted slightly distal to the umbilicus with slight drainage (chronic, due to fistula); pt without any skin discoloration around the wound, no fluctuance, no induration, no gross tenderness on exam, no masses/ rebound/guarding/rigidity). No: Tenderness, Distention, Peritoneal Signs Back: Present: Normal Inspection. No: CVA Tenderness, Midline Tenderness Upper Extremity: Present: Normal Inspection, Normal ROM, NORMAL PULSES, Neurovascularly Intact. No: Cyanosis, Edema Lower Extremity: Present: Normal Inspection, NORMAL PULSES, Normal ROM, Neurovascularly Intact, Other (+ ambulatory). No: Edema Neurological: Present: GCS=15, CN II-XII Intact, Speech Normal Skin: Present: Warm, Dry, Normal Color. No: Rashes Psychiatric: Present: Alert, Oriented x 3, Normal Insight, Normal Concentration Medical Decision Making ED Course and Treatment: 12/23/17 08:02 Impression: A 22 year old male with persistent abdominal pain. Differential Diagnosis included but are not limited to: chronic abd pain with chronic wound; pt is seeking pain control Plan: -- Reassess and disposition Progress Notes: discussed at length pt's likely condition with opioid dependency, pt agrees and states he is addicted and that he doesnt want to go into w/d and is asking for 2 percocet; pt has had similar complaints before pt's current abd wound is unchanged and looks well, no acute pathology is noted pt is offered tylenol/motrin/toradol, but pt refused and states he can only take opioids and only want opioids i refused pt became belligerent and started using profane language, directed at me i instruct patient that we will obtain some labs and check him out in the meantime pt appears angry 12/23/17 07:47 The patient stormed out of the emergency department after not being given the opioid he requested. The patient left before treatment completion. Re-evaluation Time: 07:47 Reassessment Condition: Unchanged - Medication Orders Current Medication Orders: Discontinued Medications Acetaminophen (Tylenol 325mg Tab) 650 mg PO STAT STA Stop: 12/23/17 07:45 - Scribe Statement The provider has reviewed the documentation as recorded by the Aminahibsherri Bryant Provider Scribe Attestation: All medical record entries made by the Scribe were at my direction and personally dictated by me. I have reviewed the chart and agree that the record accurately reflects my personal performance of the history, physical exam, medical decision making, and the department course for this patient. I have also personally directed, reviewed, and agree with the discharge instructions and disposition. Disposition/Present on Arrival - Present on Arrival Any Indicators Present on Arrival: No History of DVT/PE: No History of Uncontrolled Diabetes: No Urinary Catheter: No History of Decub. Ulcer: No History Surgical Site Infection Following: None - Disposition Have Diagnosis and Disposition been Completed?: Yes Diagnosis: Chronic abdominal pain, Opioid dependence Disposition: ELOPEMENT - ER ONLY Disposition Time: 07:47 Condition: STABLE Print Language: HUNGARIAN Additional Instructions: Make sure to see your doctor in 1-2 days DRINK PLENTY OF FLUIDS take your medications as prescribed RETURN TO ED IF worse pain, cant breath, persistent vomiting, high fever >101- 102 for hours, altered behavior, slurr speech, facial changes, focal weakness ( arm/leg or both), unable to urinate, heavy/persistent bleeding, passing out, chest pain, or other medical emergencies Referrals: [facility] [Outside] - Follow up with primary Forms: [employer] ([place])
== END 2017-12-23 07:45 | disposition left against medical advice (07) ==
LOC: ED 05:46
DX: R10.9 Unspecified abdominal pain (principal); G89.29 Other chronic pain; F11.20 Opioid dependence, uncomplicated

== ENCOUNTER 2018-02-13 11:19 | Emergency (ER) | payer MEDICAID ==
[2018-02-13 11:24] VITALS: RESP 18; BMI 19.1
[2018-02-13] MEDS ORDERED: Oxycodone/Acetaminophen 5/325 mg Tab PO STA (12:01)
--- NOTE | 2018-02-13 12:23 | RAD ---
PROCEDURE: Left Ankle Radiographs. HISTORY: left ankle injury COMPARISON: None FINDINGS: BONES: Normal. No fracture. JOINTS: Normal. No osteoarthritis. Ankle mortise maintained. Talar dome intact SOFT TISSUES: Normal. OTHER FINDINGS: None. IMPRESSION: Normal left ankle radiographs.
--- NOTE | 2018-02-13 12:30 | ED PDOC ---
Arrival/HPI - General Chief Complaint: Pain, Chronic Time Seen by Provider: 02/13/18 11:59 Historian: Patient - History of Present Illness Narrative History of Present Illness (Text): 02/13/18 13:40 22 Year old male, who presents to the Emergency department complaining of left ankle pain s/p twisting it since 4 days ago after mis-stepping. Patient reports being evaluated at [facility] and treated for facial abrasion and had an x-ray for his left ankle which came out negative. Patient is currently Complaining of persistent lateral left ankle and denies knee or hip pain. Patient also denies abdominal pain, fever, chills, and reports he is feeling anxious due to his PMH of this and recently running out of Xanax medication. No SI or HI. Time/Duration: < week Symptom Onset: Sudden Symptom Course: Unchanged Past Medical History - Provider Review Nursing Documentation Reviewed: Yes - Past History Past History: No Previous - Infectious Disease Hx of Infectious Diseases: None - Tetanus Immunization Tetanus Immunization: Unknown - Cardiac Hx Cardiac Disorders: No - Pulmonary Hx Pneumonia: Yes - Neurological Hx Transient Ischemic Attacks (TIA): No - HEENT Hx HEENT Disorder: No - Renal Hx Renal Disorder: No - Endocrine/Metabolic Hx Endocrine Disorders: No - Hematological/Oncological Hx Anemia: Yes - Integumentary Hx Dermatological Disorder: Yes Other/Comment: ABDOMINAL WALL ABSCESS. - Musculoskeletal/Rheumatological Hx Musculoskeletal Disorders: No - Gastrointestinal Hx Crohn's Disease: Yes - Genitourinary/Gynecological Hx Genitourinary Disorders: Yes Hx Urinary Tract Infection: Yes - Psychiatric Hx Anxiety: Yes Hx Substance Use: No - Surgical History Other/Comment: Colon resection. PT STATES "I'VE HAD MULTIPLE SURGERIES IN MY STOMACH" - Anesthesia Hx Anesthesia: Yes Hx Anesthesia Reactions: No Hx Malignant Hyperthermia: No - Suicidal Assessment Feels Threatened In Home Enviroment: No Family/Social History - Physician Review Nursing Documentation Reviewed: Yes Family/Social History: Unknown Family HX Smoking Status: Never Smoked Hx Alcohol Use: No Hx Substance Use: No Hx Substance Use Treatment: No Allergies/Home Meds Allergies/Adverse Reactions: Allergies FISH Allergy (Verified 12/23/17 05:53) RASH ketorolac [From Toradol] Allergy (Verified 12/23/17 05:53) RASH shellfish derived Adverse Reaction (Verified 12/23/17 05:53) ANGIOEDEMA Home Medications: Home Meds Medication Instructions Recorded Confirmed Remicade 12/20/17 Review of Systems - Review of Systems Constitutional: absent: Fatigue, Fevers Respiratory: absent: SOB Cardiovascular: absent: Chest Pain Gastrointestinal: absent: Abdominal Pain, Nausea, Vomiting, Appetite Changes Genitourinary Male: absent: Frequency Musculoskeletal: Other (laterl left ankle pain ). absent: Back Pain Skin: absent: Rash Neurological: absent: Headache Hemo/Lymphatic: absent: Easy Bleeding Psychiatric: Anxiety. absent: Depression, Suicidal Ideation Physical Exam - Physical Exam Narrative Physical Exam (Text): 02/13/18 Head: Atraumatic. Normocephalic. Eyes: PERRL. EOMI. Conjunctivae are not pale. ENT: Mucous membranes are moist and intact. Oropharynx is clear and symmetric. Healing abrasion noted to right upper lip. No pus or bleeding. No facial bony tenderness. Neck: Supple. Full ROM. No JVD. No lymphadenopathy. Nontender. Cardiovascular: Regular rate. Regular rhythm. No murmurs, rubs, or gallops. Distal pulses are 2+ and symmetric. Pulmonary/Chest: No evidence of respiratory distress. Clear to auscultation bilaterally. No wheezing, rales or rhonchi. Abdominal: Multiple abominal scars. NO PURULENT DRAINAGE. NONTENDER. No pus or erythema. Back: No CVA tenderness. No midline tenderness. Extremities: No edema. No cyanosis. No clubbing. Pain on palpation of left ankle lateral malleolus. No achilles pain. No foot pain. No knee or calf pain. No hip pain. Skin: Skin is warm and dry. No abdominal wall cellulitis noted. Healing abrasion to lip. Neurological: Alert, awake, and oriented to person, place, time, and situation. Motor and sensory exam intact. Psychiatric: Good eye contact. Anxious. Denies suicidal or homicidal ideation. 02/13/18 17:01 Vital Signs Reviewed: Yes Vital Signs Temp Pulse Resp BP Pulse Ox 02/13/18 13:47 98.2 F 82 18 118/70 99 02/13/18 13:46 98.2 F 82 18 118/70 99 02/13/18 11:23 98.4 F 79 18 121/56 L 100 Temperature: Afebrile Blood Pressure: Hypotensive Pulse: Regular Respiratory Rate: Normal Appearance: Positive for: Well-Appearing, Non-Toxic, Comfortable Pain Distress: None Mental Status: Positive for: Alert and Oriented X 3 Medical Decision Making ED Course and Treatment: 02/13/18 Impression: Patient with hx of ankle sprain he states four days ago, reports persistent pain. Xrays of ankle taken due to persistent pain, no fracture noted. No calf pain. No achilles pain. NV intact. He ambulates with no limp or discomfort. No edema or erythema noted. Risks/side effects of pain medication reviewed with patient. He reports anxiety, states he has prior hx of this, ran out of xanax. He does not wish to speak to mental health states no depression or suicidal ideation. Patient prescrbed 4 pills of xanax for anxiety and advised follow-up with his mental health practitioner. Advised f/u with ortho for any persistent ankle pain, but on discharge he is ambulating without discomfort. CURRENTLY NO ABDOMINAL PAIN, no fever or nausea or vomiting. - RAD Interpretation Radiology Orders: 02/13/18 12:00 ANKLE LEFT 3 VIEWS ROUTINE [RAD] Stat - Medication Orders Current Medication Orders: Discontinued Medications Oxycodone/Acetaminophen (Percocet 5/325 Mg Tab) 1 tab PO STAT STA Stop: 02/13/18 12:02 Last Admin: 02/13/18 12:35 Dose: 1 tab MAR Pain Assessment Document 02/13/18 12:35 HI (Rec: 02/13/18 12:36 HI [id number]) Pain Reassessment Is this a pain reassessment? No Sleep Is patient sleeping during reassessment? No Presence of Pain Presence of Pain Yes Pain Scale Used Pain Scale Used Numeric Description Description Constant Intensity of Pain at present 7 - Scribe Statement The provider has reviewed the documentation as recorded by the James Ortiz Provider Scribe Attestation: All medical record entries made by the James were at my direction and personally dictated by me. I have reviewed the chart and agree that the record accurately reflects my personal performance of the history, physical exam, medical decision making, and the department course for this patient. I have also personally directed, reviewed, and agree with the discharge instructions and disposition. Disposition/Present on Arrival - Present on Arrival Any Indicators Present on Arrival: No History of DVT/PE: No History of Uncontrolled Diabetes: No Urinary Catheter: No History of Decub. Ulcer: No History Surgical Site Infection Following: None - Disposition Have Diagnosis and Disposition been Completed?: Yes Diagnosis: Ankle sprain, Anxiety Disposition: HOME/ ROUTINE Disposition Time: 13:00 Patient Plan: Discharge Condition: GOOD Discharge Instructions (ExitCare): Ankle Sprain (DC), Anxiety, Adult (DC) Additional Instructions: For any abdominal pain, any fevers, any nausea/vomiting, any chills, any shaking or tremors, any new or persistent symptoms, get rechecked. I HAVE REVIEWED RISKS AND SIDE EFFECTS OF MEDICATION with you as well as RISKS OF INAPPROPRIATE USAGE. Take only as directed. Follow-up with your physician in 1-2 days. Prescriptions: Alprazolam [Xanax] 0.5 mg PO BID PRN #4 tab PRN Reason: Anxiety [facility]errals[facility] - Follow up with primary Forms: [employer] (Slovenian)
[2018-02-13 13:47] VITALS: BP 118/70; PULSE 82; TEMP 98.2; O2SAT 99
== END 2018-02-13 13:47 | disposition home or self-care (01) ==
LOC: ED 11:19
DX: S93.402A Sprain of unspecified ligament of left ankle, initial encounter (principal); X50.1XXA Overexertion from prolonged static or awkward postures, initial encounter

== ENCOUNTER 2018-10-10 09:08 | Emergency (ER) | payer MEDICAID ==
[2018-10-10 09:09] VITALS: BMI 19.1
[2018-10-10 09:29] VITALS: RESP 18; TEMP 98.2
[2018-10-10] MEDS ORDERED: Oxycodone/Acetaminophen 5/325 mg Tab PO STA (09:53)
--- NOTE | 2018-10-10 09:57 | ED PDOC ---
Arrival/HPI - General Chief Complaint: Abdominal Pain Time Seen by Provider: 10/10/18 09:15 Historian: Patient - History of Present Illness Narrative History of Present Illness (Text): 10/10/18 09:54 23yo male with pmhx of chron's disease [facility] with complaint of generalized abdominal pain, intermittent diarrhea, nonproductive cough, sneezing, rhinorrhea x one week. States he have not seen his GI for a while secondary to insurance issue, but has been able to rectify the problem and have an appointment with his GI for his last Remicade injection. He denies fever, chills, nausea, vomiting, melena, hematemesis, sick contact, travel, any other complaint. Past Medical History - Provider Review Nursing Documentation Reviewed: Yes - Past History Past History: No Previous - Infectious Disease Hx of Infectious Diseases: None - Tetanus Immunization Tetanus Immunization: Unknown - Cardiac Hx Cardiac Disorders: No - Pulmonary Hx Pneumonia: Yes - Neurological Hx Transient Ischemic Attacks (TIA): No - HEENT Hx HEENT Disorder: No - Renal Hx Renal Disorder: No - Endocrine/Metabolic Hx Endocrine Disorders: No - Hematological/Oncological Hx Anemia: Yes - Integumentary Hx Dermatological Disorder: Yes Other/Comment: ABDOMINAL WALL ABSCESS. - Musculoskeletal/Rheumatological Hx Musculoskeletal Disorders: No - Gastrointestinal Hx Crohn's Disease: Yes - Genitourinary/Gynecological Hx Genitourinary Disorders: Yes Hx Urinary Tract Infection: Yes - Psychiatric Hx Anxiety: Yes Hx Substance Use: No - Surgical History Other/Comment: Colon resection. PT STATES "I'VE HAD MULTIPLE SURGERIES IN MY STOMACH" - Anesthesia Hx Anesthesia: Yes Hx Anesthesia Reactions: No Hx Malignant Hyperthermia: No - Suicidal Assessment Feels Threatened In Home Enviroment: No Family/Social History - Physician Review Nursing Documentation Reviewed: Yes Family/Social History: Unknown Family HX Smoking Status: Never Smoked Hx Alcohol Use: No Hx Substance Use: No Hx Substance Use Treatment: No Allergies/Home Meds Allergies/Adverse Reactions: Allergies FISH Allergy (Verified 12/23/17 05:53) RASH ketorolac [From Toradol] Allergy (Verified 12/23/17 05:53) RASH shellfish derived Adverse Reaction (Verified 12/23/17 05:53) ANGIOEDEMA Home Medications: Home Meds Medication Instructions Recorded Confirmed Remicade 12/20/17 Review of Systems - Physician Review All systems were reviewed & negative as marked: Yes - Review of Systems Constitutional: Normal Eyes: Normal ENT: Rhinorrhea Respiratory: Cough Cardiovascular: Normal Gastrointestinal: Abdominal Pain, Diarrhea. absent: Constipation, Nausea, Vomiting, Hematochezia Genitourinary Male: Normal Musculoskeletal: Normal Skin: Normal Neurological: Normal Endocrine: Normal Hemo/Lymphatic: Normal Psychiatric: Normal Physical Exam Vital Signs Reviewed: Yes Vital Signs Temp Pulse Resp BP Pulse Ox 10/10/18 09:24 98.2 F 86 18 100/57 L 100 Temperature: Afebrile Blood Pressure: Normal Pulse: Regular Respiratory Rate: Normal Appearance: Positive for: Well-Appearing, Non-Toxic, Comfortable Pain Distress: None Mental Status: Positive for: Alert and Oriented X 3 - Systems Exam Head: Present: Atraumatic, Normocephalic Pupils: Present: PERRL Extroacular Muscles: Present: EOMI Conjunctiva: Present: Normal Ears: Present: Normal Mouth: Present: Moist Mucous Membranes Pharnyx: Present: Normal Nose (Internal): Present: Normal Inspection Neck: Present: Normal Range of Motion Respiratory/Chest: Present: Clear to Auscultation, Good Air Exchange. No: Respiratory Distress, Accessory Muscle Use, Wheezes, Decreased Breath Sounds, Rales, Retracting, Rhonchi, Tachypneic Cardiovascular: Present: Regular Rate and Rhythm, Normal S1, S2. No: Murmurs Abdomen: Present: Tenderness (Diffuse), Normal Bowel Sounds, Guarding (Voluntary), Other (Soft. One open wound noted. No discharge. No erythema. No sign of infection noted). No: Distention, Peritoneal Signs, Rebound, McBurney's Point Tender, Rovsing's Sign Present Back: Present: Normal Inspection Upper Extremity: Present: Normal Inspection. No: Cyanosis, Edema Lower Extremity: Present: Normal Inspection. No: Edema Neurological: Present: GCS=15, CN II-XII Intact, Speech Normal Skin: Present: Warm, Dry, Normal Color. No: Rashes Psychiatric: Present: Alert, Oriented x 3, Normal Insight, Normal Concentration Medical Decision Making ED Course and Treatment: 10/10/18 10:28 23yo male in ED for abdominal pain, diarrhea, cough. rhinorrhea x one week He was hemodynamically stable in ED. Noted drinking juice in ED. He asked for Dilaudid or 10mg of Percocet in ED. He was given a tab of Percocet and strongly advised to f/u with his PMD for opiates. He declined chest xray and tessalon perles was given for cough. DC home with tessalon and referred to his PMD Disposition/Present on Arrival - Present on Arrival Any Indicators Present on Arrival: No History of DVT/PE: No History of Uncontrolled Diabetes: No Urinary Catheter: No History of Decub. Ulcer: No History Surgical Site Infection Following: None - Disposition Have Diagnosis and Disposition been Completed?: Yes Diagnosis: Abdominal pain, Cough Disposition: HOME/ ROUTINE Disposition Time: 10:00 Patient Plan: Discharge Condition: STABLE Discharge Instructions (ExitCare): Cough in Adults, Acute Abdomen (Belly Pain) Additional Instructions: Follow up with your Doctor Return to ED for any new or worsening symptoms Prescriptions: Benzonatate [Tessalon Perle] 100 mg PO TID #20 capsule Referrals: Navid Stephens MD [Family Provider] - Follow up with primary Forms: [employer] (Tongan)
[2018-10-10 10:27] VITALS: BP 102/78; PULSE 78; O2SAT 98
== END 2018-10-10 10:28 | disposition home or self-care (01) ==
LOC: ED 09:08
DX: R05 Cough (principal); R10.9 Unspecified abdominal pain